=== PATIENT | female | born 1935 | race Caucasian/White ===

== ENCOUNTER 2023-12-27 09:01 | Emergency (ER) | payer MEDICARE, OTHER, SELFPAY ==
[2023-12-27 09:03] VITALS: BP 146/100; PULSE 133; RESP 18; TEMP 36.2; O2SAT 96; BMI 28.0
--- NOTE | 2023-12-27 09:08 | ED.VIS.CHEST ---
HPI History of Present Illness Chief Complaint: Palpitations PFSH PFSH Allergy/AdvReac Type Severity Reaction Status Date / Time Sulfa (Sulfonamide Allergy Mild Rash Verified 12/27/23 09:02 Antibiotics) Social History Smoking Status: Current every day smoker tobacco type: pipe EXAM Physical Exam Const Vital Signs: 12/27/23 09:02 12/27/23 09:03 12/27/23 09:09 Temperature 97.2 F L Temperature Source Temporal Pulse Rate 133 H Respiratory Rate 18 Respiratory Effort Normal Non-Labored Blood Pressure 146/100 H Blood Pressure Mean 115 Pulse Ox 96 Oxygen Delivery Method Room Air Room Air 12/27/23 10:02 12/27/23 10:24 12/27/23 11:00 Temperature Temperature Source Pulse Rate 133 H 87 56 L Respiratory Rate 13 17 14 Respiratory Effort Blood Pressure 138/111 H 137/104 H 116/79 Blood Pressure Mean 120 115 91 Pulse Ox 96 98 95 Oxygen Delivery Method Room Air Room Air Room Air 12/27/23 11:49 Temperature 97.8 F Temperature Source Pulse Rate 54 L Respiratory Rate 16 Respiratory Effort Blood Pressure 122/7 H Blood Pressure Mean 45 Pulse Ox 97 Oxygen Delivery Method MDM MDM MDM Narrative Medical decision making narrative: HISTORY OF PRESENT ILLNESS: 88-year-old female presents with fatigue, shortness of breath for the last several days. Seen by her PCP was noted to be in atrial fibrillation. Patient denies history of A-fib. REVIEW OF SYSTEMS: Pertinent positives: Fatigue, shortness of breath Pertinent negatives: Chest pain, bleeding diathesis PHYSICAL EXAM: Nursing triage notes reviewed, Vital signs reviewed Constitutional: please see mdm HENT: MMM Eyes: Pupils equal round and reactive to light, Extraocular muscles intact Neck: No stridor, no JVD, full neck ROM Lungs: Clear to auscultation, No wheezing or rales. No increased work of breathing, no conversational dyspnea, no accessory muscle use, no nasal flaring. No respiratory distress noted Heart: Fast rate, irregularly irregular rhythm, No murmurs, No rubs and No gallops, 2+ distal pulses (radial, femoral, posterior tibial) in all extremities Abdomen: Soft, there is no tenderness, rigidity, rebound or guarding, no obvious peritoneal signs, no palpable pulsatile abdominal masses, no auscultated abdominal bruit : No CVAT Extremities: No edema Neuro: No focal neurological deficits, cranial nerves II through XII intact, 5/5 strength in all extremities. Intact sensation to light touch in all extremities, 2+ reflexes bilateral patella tendons. Normal gait. No ataxia. Skin: No rash or lesions noted MEDICAL DECISION MAKING: Chief Complaint: Palpitations, shortness of breath, fatigue External records reviewed: No recent ED visits or hospitalizations noted in the chart, no recent echocardiograms, stress test noted Factors affecting care:, Anxiety hyperlipidemia, hypertension Social determinants of health: none History obtained from others: none Consults: none MDM Narrative: Patient was initially tachycardic otherwise afebrile and nontoxic-appearing. Exam with irregular regular rhythm however no other stigmata of VTE or heart failure. I considered the following differential diagnosis: Arrhythmia, anemia, electrolyte disturbance, ACS, PE I obtained a broad lab and imaging workup to further elucidate the etiology of the patient's complaints. ALL IMAGES (IF OBTAINED) HAVE BEEN PERSONALLY REVIEWED AND INTERPRETED BY MYSELF. EKG with atrial fibrillation with rapid ventricular response, left axis deviation, left bundle branch block, no obvious ischemic changes, no prior for comparison High-sensitivity troponin is negative, no evidence of myocardial ischemia CBC without leukocytosis, severe anemia, no thrombocytopenia. CMP without evidence of acute kidney injury, significant electrolyte abnormality, anion gap, no evidence hepatobiliary pathology. BNP slightly elevated consistent with volume overload Chest x-ray was read reviewed myself shows no evidence of pneumonia, noted slight pulmonary edema consistent with likely abnormal heart rhythm Repeat EKG after fluids metoprolol showed return to normal sinus rhythm specifically showed The synthesis of the patient's history, physical exam, abdomen suggest new onset A-fib spontaneously converted back to NSR after fluids and 5mg of IV metoprolol. Repeat blood pressure 122/70. No indication for anticoagulation or ongoing metoprolol therapy. Recommended cardiology and PCP follow-up instructions The patient and/or family, caregivers express understanding. The patient and/or family, caregivers agrees with the plan. Shared decision making: I will have a discussion with the patient and or visitors regarding risk/benefits of further testing or admission. They will be made aware of of the risk/benefits inherent in this decision they will be given the opportunity to voice understanding. Total critical care time today provided was at least 0 minutes. This excludes separately billable procedures. Critical care time (if documented) is secondary to the patient having high probability of clinically significant/life threatening deterioration in the patient's condition which required my urgent intervention. Impression: 1. New onset A-fib with RVR 2. Shortness of breath Dispo: Discharge home This note was generated with [employer] dictation software. It may contain incorrect words, spelling, and punctuation that were not noted in review of the chart prior to signing. Lab Data Labs: Laboratory Results - last 24 hr 12/27/23 09:14 WBC 8.4 RBC 5.05 Hgb 15.2 H Hct 46.1 MCV 91.3 MCH 30.1 MCHC 33.0 RDW Std Deviation 45.1 H RDW Coeff of Angie 13.5 Plt Count 242 MPV 9.5 Immature Gran % (Auto) 0.600 Neut % (Auto) 72.7 H Lymph % (Auto) 18.6 L Rhea % (Auto) 5.9 Eos % (Auto) 1.7 Baso % (Auto) 0.5 Absolute Neuts (auto) 6.1 Absolute Lymphs (auto) 1.57 Nucleated RBC % 0 Sodium 142 Potassium 4.2 Chloride 111 H Carbon Dioxide 24.0 Anion Gap 7 BUN 14 Creatinine 0.79 Estim Creat Clear Calc 46.13 Est GFR (MDRD) Af Amer 89 Est GFR (MDRD) Non-Af 74 BUN/Creatinine Ratio 17.8 Glucose 122 H Calcium 9.7 Magnesium 2.2 Troponin I High Sens 23 B-Natriuretic Peptide 406.5 H Radiography Diagnostic Testing: Clinical Impression(s) from Imaging Studies Chest X-Ray 12/27/23 09:15 IMPRESSION: Findings suggestive of a mild degree of CHF. Electronically Signed: Lucas Chavez MD at 10:02 EDT , Discharge Plan Triage Chief Complaint: Palpitations ED Provider: Virgil Hernandez Dx/Rx/DC Orders Instructions: ED AFIB, ED Palpitations Primary Care Provider: Carl Steen Referrals: Yuri Ta MD [Med Staff - Active Staff] - Activity Restrictions/Additional Instructions: Thank you for trusting us with your care today! Please eat a healthy diet with fruits, vegetables, lean meats and try to drink water for hydration. You are treated with metoprolol (Lopressor) this medicine can slow your heart rate if you are in atrial fibrillation Please go online and look for a device called [employer] which can monitor you heart rate at home. You can also use her Apple Watch for heart rate monitoring. If it shows abnormal heart rhythm I present to the emergency department for further evaluation. Please return to the emergency department if your symptoms change or worsen. Specifically develop chest pain, feel your heart racing, develop shortness of breath, leg swelling. Please follow with your primary care physician and/or cardiology for further outpatient evaluation and management. Print Language: Wolof Disposition Disposition: Home, Self Care Discharge Date/Time: 12/27/23 11:57
--- NOTE | 2023-12-27 09:09 | EKG12_ITS ---
Test Reason : AFIB Blood Pressure : / mmHG Vent. Rate : 133 BPM Atrial Rate : 000 BPM P-R Int : 000 ms QRS Dur : 118 ms QT Int : 296 ms P-R-T Axes : 000 -35 135 degrees QTc Int : 440 ms Atrial fibrillation with rapid ventricular response Left axis deviation Left ventricular hypertrophy with QRS widening ( [place] product , [employer]Kumar ) Confirmed by KINGSTON SHETH, MARY ([id number]), video news editor GLYNN LAST ([id number]) on 12/28/2023 2:07:03 PM Referred By: JANET WHITESIDE Confirmed By:MARY ONOFRE MD
--- NOTE | 2023-12-27 09:15 | RAD_ITS ---
STUDY: X-RAY CHEST REASON FOR EXAM: Female, 88 years old. Chest pain TECHNIQUE: Single AP portable view of the chest. COMPARISON: None. FINDINGS: EKG electrodes are seen. Mild degree of increased interstitial markings at the bases suggest mild CHF. There is no demonstrated pleural abnormality. Normal size heart. Normal mediastinum and jamin. Normal visualized pulmonary arteries. There is atherosclerotic tortuosity of the aortic arch and descending thoracic aorta. Normal visualized thoracic spine. Normal visualized ribs, clavicles, and shoulders. There is no demonstrated abnormality of the visualized soft tissue structures of the upper abdomen. RAD/Chest 1 View (Portable) IMPRESSION: Findings suggestive of a mild degree of CHF. Electronically Signed: Lucas Chavez MD at 10:02 EDT ,
[2023-12-27] MEDS: 0.9% Normal Saline (500mL Bag) 500 ML 999 ML IV (09:20)
[2023-12-27 09:25] LABS: Absolute Lymphocyte Count 1.57 X10^3/uL (0.83-4.51); Absolute Neutrophil Count 6.1 X10^3/uL (2.0-7.7); Basophil# 0.04 X10^3/uL; Basophil% 0.5 % (0-1); Eosinophil# 0.14 X10^3/uL; Eosinophils% 1.7 % (0-5); Hematocrit 46.1 % (37-47); Hemoglobin 15.2 g/dL (12.0-15.0); Lymphocyte # 1.57 X10^3/ul (0.83-4.51); Lymphocyte % 18.6 % (19-41); Mean Corpuscular Hgb 30.1 pg (27.0-32.0); Mean Corpuscular Volume 91.3 fL (81-99); Mean Platelet Vol. 9.5 fl (6.2-12.0); Monocyte% 5.9 % (0-10); NRBC Flagged by Analyzer 0 % (0-5); Neutrophil # 6.12 X10^3/uL (2.7-7.7); Neutrophil % 72.7 % (47-70); Platelet Count 242 K/mm3 (150-450); RBC Distribution Width CV 13.5 % (11.6-14.6); RBC Distribution Width SD 45.1 fl (35.1-43.9); Red Blood Count 5.05 M/mm3 (4.2-5.4); White Blood Count 8.4 K/mm3 (4.4-11.0)
[2023-12-27 09:39] LABS: Anion Gap 7 (5-15); BUN 14 mg/dL (7-18); BUN/Creat Ratio 17.8 RATIO (10-20); Calcium,Total 9.7 mg/dL (8.5-10.1); Chloride 111 mmol/L (98-107); Creatinine, Serum 0.79 mg/dL (0.55-1.02); EST Glomerular Filtration Rate 74 mL/min (>60); Est Glom Filt Rate - Afr Amer 89 mL/min (>60); Estimated Creatinine Clearance 46.13 ml/min; Glucose 122 mg/dL (74-106); Magnesium 2.2 mg/dL (1.6-2.6); Potassium 4.2 mmol/L (3.5-5.1); Sodium Level 142 mmol/L (136-145); Troponin-I HS (w/2H Reflex) 23 pg/mL (3.0-54.0)
[2023-12-27 09:45] LABS: BNP,B-Type NATRIURETIC PEPTIDE 406.5 pg/mL (0-100)
[2023-12-27 10:02] VITALS: BP 138/111; PULSE 133; RESP 13; O2SAT 96
[2023-12-27] MEDS: Metoprolol Tartrate 5 MG/5 ML Vial IV ×3 (10:11→10:21)
[2023-12-27 10:24] VITALS: BP 137/104; PULSE 87; RESP 17; O2SAT 98
--- NOTE | 2023-12-27 10:44 | EKG12_ITS ---
Test Reason : REPEAT Blood Pressure : / mmHG Vent. Rate : 063 BPM Atrial Rate : 063 BPM P-R Int : 152 ms QRS Dur : 122 ms QT Int : 468 ms P-R-T Axes : 031 -18 153 degrees QTc Int : 478 ms Normal sinus rhythm Left bundle branch block Abnormal ECG Confirmed by KINGSTON SHETH, MARY ([id number]), digital editor GLYNN LAST ([id number]) on 12/28/2023 2:08:41 PM Referred By: Confirmed By:MARY ONOFRE MD
[2023-12-27 11:00] VITALS: BP 116/79; PULSE 56; RESP 14; O2SAT 95
[2023-12-27 11:19] LABS: Reflex Troponin-HS? (from REC) Y
[2023-12-27 11:49] VITALS: BP 122/7; PULSE 54; RESP 16; TEMP 36.6; O2SAT 97
== END 2023-12-27 11:57 | disposition home or self-care (01) ==
PROVIDERS: Emergency Provider Emergency Medicine; PCP Family Medicine; Visit Provider Emergency Medicine
DX: I48.91 Unspecified atrial fibrillation (principal); I10 Essential (primary) hypertension; R53.83 Other fatigue; F17.200 Nicotine dependence, unspecified, uncomplicated; R06.02 Shortness of breath; F41.9 Anxiety disorder, unspecified; E78.5 Hyperlipidemia, unspecified; I44.7 Left bundle-branch block, unspecified; R00.2 Palpitations
CPT/HCPCS: 96361; 96374; 99284; 71045; 80048; 83735; 83880; 84484; 85025; 93005; J7030; A4216

== ENCOUNTER 2023-12-28 05:41 | Inpatient (IN) | payer MEDICARE, OTHER, SELFPAY ==
[2023-12-28] VITALS (21 sets, daily range): BP systolic 94–202; BP diastolic 62–124; PULSE 61–133; RESP 16–20; TEMP 36.6–36.7; O2SAT 92–99; BMI 29.3; BMI 28.0
--- NOTE | 2023-12-28 06:10 | RAD_ITS ---
EXAM: XR CHEST, 1 VIEW CLINICAL INDICATION: SOB TECHNIQUE: Frontal view of the chest. COMPARISON: Previous chest radiograph of 12/27/2023. FINDINGS: LUNGS AND PLEURAL SPACES: There is increasing thickening of the pulmonary interstitial markings within the mid to lower lungs indicating worsening interstitial edema. Minimal patchy airspace disease has also developed symmetrically within the lower lungs due to developing alveolar edema. No pneumothorax or pleural effusion. HEART: Heart size is upper normal with mild pulmonary vascular congestion. MEDIASTINUM: Stable mild elongation and calcification of the thoracic aorta. BONES/JOINTS: No acute osseous abnormality. SOFT TISSUES: Unremarkable. RAD/Chest 1 View (Portable) IMPRESSION: Worsening findings of cardiac decompensation/CHF, with increasing interstitial pulmonary edema and interval development of patchy bibasilar alveolar edema since the study of one day ago. Electronically Signed: Abhinav Pizano MD at 7:00 EDT ,
--- NOTE | 2023-12-28 06:10 | EKG12_ITS ---
Test Reason : Blood Pressure : / mmHG Vent. Rate : 072 BPM Atrial Rate : 072 BPM P-R Int : 158 ms QRS Dur : 130 ms QT Int : 428 ms P-R-T Axes : 055 -09 141 degrees QTc Int : 468 ms Normal sinus rhythm Left bundle branch block Abnormal ECG Confirmed by KINGSTON SHETH, MARY ([id number]), editor house organ SOURAV CARPENTER ([id number]) on 12/29/2023 2:15:35 PM Referred By: Confirmed By:MARY ONOFRE MD
--- NOTE | 2023-12-28 06:11 | ED.VIS.DYS ---
HPI History of Present Illness Chief Complaint: Shortness of Breath Informant: patient and spouse/S.O. Narrative Narrative: 88-year-old female presents with worsening dyspnea including dyspnea on exertion and orthopnea. Denies any chest discomfort or peripheral edema. She was seen here yesterday and diagnosed with A-fib, that was new for her but she converted prior to being discharged. No medication changes. She states she has had a dry cough for 2 or 3 days no fevers or chills. No other heart or lung problems that she knows of in the past. [facility] Medical History Smoker Sleep apnea HTN (hypertension) Afib Home Medications ?Medication ?Instructions ?Recorded ?Last Taken ?Type amlodipine 5 mg tablet 5 mg PO DAILY 12/28/23 Unknown History losartan 100 mg tablet 100 mg PO DAILY 12/28/23 Unknown History simvastatin 20 mg tablet 20 mg PO QHS 12/28/23 Unknown History venlafaxine 75 mg capsule,extended 75 mg PO DAILY 12/28/23 Unknown History release 24 hr Allergy/AdvReac Type Severity Reaction Status Date / Time Sulfa (Sulfonamide Allergy Mild Rash Verified 12/28/23 05:56 Antibiotics) Social History Smoking Status: Current every day smoker tobacco type: pipe ROS ROS ED Constitutional Constitutional ED: Denies chills or fever(s) Eyes Eyes: Denies change in vision or diplopia ENT ENT ED: Denies rhinorrhea or sore throat Cardiovascular Cardiovascular: Reports orthopnea; Denies chest pain or palpitations Respiratory/Chest Respiratory/Chest: Reports cough, dyspnea, dyspnea on exertion and orthopnea; Denies sputum Gastrointestinal Gastrointestinal: Denies abdominal pain, diarrhea, nausea or vomiting Genitourinary Genitourinary ED: Denies dysuria or hematuria Musculoskeletal Musculoskeletal: Denies back pain or neck pain Integumentary Denies abscess or rash Neurologic Neurologic: Denies headache(s), paresthesias or weakness Psychiatric Psychiatric: Denies anxiety or suicidal thoughts EXAM Physical Exam Const Vital Signs: 12/28/23 05:43 12/28/23 05:54 12/28/23 06:13 Temperature 97.8 F Temperature Source Oral Pulse Rate 74 Respiratory Rate 20 H Respiratory Effort Normal Short of Breath Respiratory Depth Normal Respiratory Pattern Tachypnea Blood Pressure 147/79 H Blood Pressure Mean 101 Pulse Ox 92 Oxygen Delivery Method Room Air Room Air Room Air 12/28/23 06:30 12/28/23 07:09 Temperature Temperature Source Pulse Rate 67 61 Respiratory Rate 18 Respiratory Effort Respiratory Depth Respiratory Pattern Blood Pressure 140/78 H 130/68 H Blood Pressure Mean 88 Pulse Ox 97 Oxygen Delivery Method Room Air Positive well nourished and well developed General Appearance ED: well developed and NAD HEENT Reports moist mucous membranes normocephalic and atraumatic Eyes PERRL and EOMs intact bilaterally Neck full ROM, supple and no JVD Resp normal respiratory effort Auscultation: rhonchi lower bilaterally Cardio regular rate, regular rhythm and no murmurs GI non-tender and non-distended Auscultation: normoactive bowel sounds Palpation: soft Back/Spine no CVA tenderness General Back: other FROM Extremity normal to inspection General Extremety ED: Negative for edema, pulses abnormal or tenderness General Extremity: Negative for edema or pulses abnormal Neuro oriented x3, CN's II-XII intact bilaterally and no sensory deficits noted Sensorium / Orientation: awake and alert Motor Exam: strength 5/5 throughout Psych mental status grossly normal Skin no rashes or lesions noted and no wounds MDM MDM MDM Narrative Medical decision making narrative: Upon triage arrest patient 87% on room air and placed on oxygen by nursing. My suspicion is that she is in CHF. She is in a sinus rhythm and not in A-fib at this time. Her clinical exam supports CHF, and reviewing the ED visit from yesterday, her ancillary studies support acute CHF at that time. Therefore while repeating those test to see if her BNP and chest x-ray are looking worse, I am giving her IV Lasix and sublingual nitroglycerin in addition to the oxygen. This did help some. Indeed, on my interpretation one-view portable chest x-ray does appear to show worsening cephalization/edema, radiology confirms this. Her BNP is similar, a little lower. The rest of her labs are noted and unremarkable including a normal troponin. Plan is for admission. Lab Data Attestation: I reviewed the patient's lab results. Labs: Laboratory Results - last 24 hr 12/28/23 05:49 WBC 8.0 RBC 4.90 Hgb 15.0 Hct 44.6 MCV 91.0 MCH 30.6 MCHC 33.6 RDW Std Deviation 44.5 H RDW Coeff of Angie 13.3 Plt Count 227 MPV 9.9 Immature Gran % (Auto) 0.500 Neut % (Auto) 72.8 H Lymph % (Auto) 19.5 Major % (Auto) 4.3 Eos % (Auto) 2.4 Baso % (Auto) 0.5 Absolute Neuts (auto) 5.8 Absolute Lymphs (auto) 1.55 Nucleated RBC % 0 Sodium 140 Potassium 3.7 Chloride 112 H Carbon Dioxide 21.0 Anion Gap 7 BUN 19 H Creatinine 0.80 Estim Creat Clear Calc 47.17 Est GFR (MDRD) Af Amer 87 Est GFR (MDRD) Non-Af 72 BUN/Creatinine Ratio 23.7 H Glucose 146 H Calcium 8.8 Troponin I High Sens 22 B-Natriuretic Peptide 338.3 H Radiography Diagnostic Testing: Clinical Impression(s) from Imaging Studies Chest X-Ray 12/28/23 06:10 IMPRESSION: Worsening findings of cardiac decompensation/CHF, with increasing interstitial pulmonary edema and interval development of patchy bibasilar alveolar edema since the study of one day ago. Electronically Signed: Abhinav Pizano MD at 7:00 EDT , Rhythm Strip Rhythm Strip: Sinus Rhythm Rate: 75 Ectopy: None EKG Initial EKG: Attestation: I personally reviewed and interpreted this EKG as follows: Interpretation: Sinus Rhythm, No Acute Injury Pattern and LBBB Prior EKG tracings: not available for review Management Discussion w/another healthcare provider: Hospitalist Discharge Plan Triage Chief Complaint: Shortness of Breath ED Provider: Herman Faulkner Dx/Rx/DC Orders Clinical Impression: Hypoxemia, Acute CHF Prescriptions: No Action venlafaxine 75 mg capsule,extended release 24hr 75 mg PO DAILY amlodipine 5 mg tablet 5 mg PO DAILY simvastatin 20 mg tablet 20 mg PO QHS losartan 100 mg tablet 100 mg PO DAILY Primary Care Provider: Carl Steen Referrals: Carl Steen MD [Primary Care Provider] - Print Language: Indonesian Disposition Disposition: [facility]
[2023-12-28 06:23] LABS: Absolute Lymphocyte Count 1.55 X10^3/uL (0.83-4.51); Absolute Neutrophil Count 5.8 X10^3/uL (2.0-7.7); Basophil# 0.04 X10^3/uL; Basophil% 0.5 % (0-1); Eosinophil# 0.19 X10^3/uL; Eosinophils% 2.4 % (0-5); Hematocrit 44.6 % (37-47); Lymphocyte # 1.55 X10^3/ul (0.83-4.51); Lymphocyte % 19.5 % (19-41); Mean Corp Hgb Conc 33.6 g/dL (32-36); Mean Corpuscular Hgb 30.6 pg (27.0-32.0); Mean Platelet Vol. 9.9 fl (6.2-12.0); Monocyte# 0.34 X10^3/uL; Monocyte% 4.3 % (0-10); NRBC Flagged by Analyzer 0 % (0-5); Neutrophil # 5.79 X10^3/uL (2.7-7.7); Neutrophil % 72.8 % (47-70); Platelet Count 227 K/mm3 (150-450); RBC Distribution Width CV 13.3 % (11.6-14.6); RBC Distribution Width SD 44.5 fl (35.1-43.9)
[2023-12-28] MEDS: Furosemide 20 MG/2 ML VIAL IV (06:30)
[2023-12-28] MEDS: Nitroglycerin SL (ED/IMG/CATH) 0.4 MG TABLET SL (06:30)
[2023-12-28 06:39] LABS: Anion Gap 7 (5-15); BUN 19 mg/dL (7-18); BUN/Creat Ratio 23.7 RATIO (10-20); Calcium,Total 8.8 mg/dL (8.5-10.1); Chloride 112 mmol/L (98-107); EST Glomerular Filtration Rate 72 mL/min (>60); Est Glom Filt Rate - Afr Amer 87 mL/min (>60); Estimated Creatinine Clearance 47.17 ml/min; Glucose 146 mg/dL (74-106); Potassium 3.7 mmol/L (3.5-5.1); Sodium Level 140 mmol/L (136-145); Troponin-I HS 22 pg/mL (3.0-54.0)
[2023-12-28 07:23] LABS: BNP,B-Type NATRIURETIC PEPTIDE 338.3 pg/mL (0-100)
--- NOTE | 2023-12-28 07:52 | HP.PCM.HOS_ITS ---
HPI - General General Date of Admission: 12/28/23 Date of Service: 12/28/23 Chief Complaint: Shortness of breath HPI Narrative NATALEE ARAIZA, is a 88 F who presents with shortness of breath. Patient states started 2 weeks prior to her admission. She had noticed increasing shortness of breath with minimal activity. She had also gotten some notification from her Apple Watch telling her she was in A-fib. She was seen by her primary care physician a day prior to her admission. Found to be in A-fib and sent to the ED . Patient was diagnosed with new onset A-fib discharged home. She woke up on the morning of her presentation with significant shortness of breath necessitating patient presented back to the ED. Imaging studies obtained came back consistent with interstitial pulmonary edema and assessment of acute congestive heart failure made admitted to a monitored bed for subsequent management [facility] Medical History Smoker Sleep apnea HTN (hypertension) Afib Home Medications ?Medication ?Instructions ?Recorded ?Last Taken ?Type amlodipine 5 mg tablet 5 mg PO DAILY 12/28/23 Unknown History losartan 100 mg tablet 100 mg PO DAILY 12/28/23 Unknown History simvastatin 20 mg tablet 20 mg PO QHS 12/28/23 Unknown History venlafaxine 75 mg capsule,extended 75 mg PO DAILY 12/28/23 Unknown History release 24 hr Allergy/AdvReac Type Severity Reaction Status Date / Time Sulfa (Sulfonamide Allergy Mild Rash Verified 12/28/23 05:56 Antibiotics) Social History Smoking Status: Current every day smoker tobacco type: pipe ROS ROS Narrative GENERAL: denies fever, chills, night sweats, weight loss, anorexia HEENT: denies headache, sinus congestion, or drainage, dysphagia RESPIRATORY: shortness of breath, dyspnea on exertion CARDIAC: palpitations, orthopnea, GASTROINTESTINAL: denies abdominal pain, nausea, vomiting, melena, GENITOURINARY: denies dysuria, urgency, frequency, heamaturia EXTREMITY: denies swelling MUSCULOSKELETAL: denies current joint pain or tenderness NEUROLOGIC: denies focal numbness, weakness, tingling HEMATOLOGIC: denies easy bruising and/or hemorrhage INTEGUMENT: denies rashes PSYCHIATRIC: denies suicidal or homicidal ideation Vital Signs Vital Signs Vital Signs: 12/28/23 05:43 12/28/23 05:54 12/28/23 06:13 Temperature 97.8 F Temperature Source Oral Pulse Rate 74 Respiratory Rate 20 H Respiratory Effort Normal Short of Breath Respiratory Depth Normal Respiratory Pattern Tachypnea Blood Pressure 147/79 H Blood Pressure Mean 101 Pulse Ox 92 Oxygen Delivery Method Room Air Room Air Room Air 12/28/23 06:30 12/28/23 07:09 Temperature Temperature Source Pulse Rate 67 61 Respiratory Rate 18 Respiratory Effort Respiratory Depth Respiratory Pattern Blood Pressure 140/78 H 130/68 H Blood Pressure Mean 88 Pulse Ox 97 Oxygen Delivery Method Room Air Weight Weight: 72.847 kg Body Mass Index (BMI) 29.3 Physical Exam Narrative GENERAL: cooperative HEENT: Atraumatic; normocephalic EYES; Anicteric, Normal Conjunctiva NECK; supple, normal thyroid, RESPIRATORY: Diminished to auscultation CARDIOVASCULAR: Regular S1 S2, GI: soft, normoactive bowel sounds, : No Renal angle tenderness; EXTREMITIES: No edema, no clubbing, MUSCULOSKELETAL: no muscle wasting NEURO: Awake; no lateralizing signs. SKIN: No Rash PSYCH; Flat affect Results Lab / Micro Data 12/28/23 05:49 12/28/23 05:49 Labs: Laboratory Results - last 24 hr 12/28/23 05:49: WBC 8.0, RBC 4.90, Hgb 15.0, Hct 44.6, MCV 91.0, MCH 30.6, MCHC 33.6, RDW Std Deviation 44.5 H, RDW Coeff of Angie 13.3, Plt Count 227, MPV 9.9, Immature Gran % (Auto) 0.500, Neut % (Auto) 72.8 H, Lymph % (Auto) 19.5, [place] % (Auto) 4.3, Eos % (Auto) 2.4, Baso % (Auto) 0.5, Absolute Neuts (auto) 5.8, Absolute Lymphs (auto) 1.55, Nucleated RBC % 0, Sodium 140, Potassium 3.7, C hloride 112 H, Carbon Dioxide 21.0, Anion Gap 7, BUN 19 H, Creatinine 0.80, Estim Creat Clear Calc 47.17, Est GFR (MDRD) Af Amer 87, Est GFR (MDRD) Non-Af 72, BUN/Creatinine Ratio 23.7 H, Glucose 146 H, Calcium 8.8, Troponin I High Sens 22, B-Natriuretic Peptide 338.3 H Rhythm Strip Rhythm Strip: Sinus Rhythm Rate: 75 Ectopy: None Imaging Radiology Impression Chest X-Ray 12/28/23 06:10 IMPRESSION: Worsening findings of cardiac decompensation/CHF, with increasing interstitial pulmonary edema and interval development of patchy bibasilar alveolar edema since the study of one day ago. Electronically Signed: Abhinav Pizano MD at 7:00 EDT , Assessment & Plan Assessment/Plan (1) Acute CHF: (2) Hypoxemia: PLAN: Plan Patient is an 88-year-old lady presenting with progressive shortness of breath 1. Acute congestive heart failure (new onset) ? EF unknown at this point. Patient has been admitted to monitored bed managed with strict input and output, daily weight, low-sodium diet, fluid restriction as well as treatment with furosemide. Echo ordered for EF assessment 2. New onset A-fib ? Currently in sinus rhythm with patient Isauro vas 2 score being 2 patient will need to be on long-term systemic anticoagulation discussed with patient 3. Hypertension - Blood pressure controlled, home medications continued with dose adjustment as needed 4. Left bundle branch block ? Age undetermined ordered an echo if patient has any evidence of regional wall motion abnormalities cardiology be consulted 5. Depression ? Patient is on SNRI did continue 6. Dyslipidemia -Patient is on statin therapy, continued at home dose 7. Tobacco dependence - Counseled on cessation, offered nicotine patch for tobacco cravings 8. DVT prophylaxis ? Placed on apixaban Time spent in the patient's overall evaluation,decision-making process, review of diagnostic data, adjustment of management, discussion with other providers, nursing nursing and ancillary staff involved in patient's care documentation, 78. Minutes Advance planning; did discuss with the patient and family regarding advanced directives as well as CODE STATUS. Did explain the various scenarios involved ( FULL CODE, DNR CCA, DNR CCA with no intubation, and DNR CC and what each meant) patient elected to to remain full code with CPR and intubation if needed. Order was placed. Time spent on discussion 16 minutes. Charges/Coding Visit Charges Inpatient E&M: 26636 Init Hosp L3 Procedures Hospitalists Procedures: 39871 Advncd Care Plan 30 Min
--- NOTE | 2023-12-28 08:46 | ECHOD_ITS ---
Reason For Study: CHF Procedure This was a 2D Doppler, Color Flow transthoracic echocardiogram. Exam performed portable in patient room. Left Ventricle Normal LV size. Mild concentric left ventricular hypertrophy. The estimated ejection fraction is 50 %. Stage 3 diastolic dysfunction. There is borderline global hypokinesis of the left ventricle. Right Ventricle Normal RV size. Normal systolic function. Atria Normal left atrium. Normal right atrium. Bubble contrast study negative for right to left interatrial shunt. Mitral Valve Normal mitral valve. Mild-Moderate (1-2+) eccentric mitral valve insufficiency. Tricuspid Valve Normal tricuspid valve. Mild (1+) tricuspid valve insufficiency. Pulmonary artery systolic pressure is 38 mmHg. Aortic Valve Trisinus/trileaflet aortic valve. Pulmonic Valve Normal pulmonic valve. Great Vessels Normal aortic root. The pulmonary artery is normal size. Inferior vena cava collapse with respiration. Pericardium/Pleural No pericardial effusion. Medication Performed a rapid injection of agitated mix of 9 cc saline and 1cc air to assess for atrial septal defect. MMode/2D Measurements & Calculations LVIDd: 4.9 cm IVSd: 1.2 cm LVOT diam: 1.7 cm LVIDs: 3.7 cm LVPWd: 1.2 cm RVDd: 2.8 cm FS: 25.0 % LVOT area: 2.3 cm2 LA dimension: 4.1 cm LAV(MOD-bp): 62.4 ml LVAd ap4: 31.3 cm2 LAV(MOD-bp) Indexed: 35.9 ml/m2 LVLd ap4: 7.9 cm LAV(MOD-sp2): 55.1 ml EDV(MOD-sp4): 101.4 ml LAV(MOD-sp4): 68.6 ml EDV(sp4-el): 105.5 ml LVAs ap4: 19.5 cm2 LVLs ap4: 6.7 cm ESV(MOD-sp4): 47.1 ml ESV(sp4-el): 48.7 ml EF(MOD-sp4): 53.5 % EF(sp4-el): 53.9 % LVAd ap2: 24.1 cm2 SV(MOD-sp4): 54.2 ml SV(MOD-sp2): 32.4 ml LVLd ap2: 7.9 cm EDV(MOD-sp2): 62.8 ml EDV(sp2-el): 62.2 ml LVAs ap2: 14.3 cm2 LVLs ap2: 6.4 cm ESV(MOD-sp2): 30.4 ml ESV(sp2-el): 27.2 ml EF(MOD-sp2): 51.6 % SV(sp4-el): 56.8 ml LA A4 area: 22.0 cm2 RA A4 area: 15.1 cm2 TAPSE: 1.9 cm Time Measurements MV dec time: 0.22 sec Doppler Measurements & Calculations MV E max timothy: 83.3 cm/sec Lat Peak E' Timothy: 7.6 cm/sec Med Peak E' Timothy: 4.7 cm/sec MV A max timothy: 35.1 cm/sec E/E' lat: 10.9 E/E' med: 17.6 MV E/A: 2.4 MV V2 max: 103.3 cm/sec MV P1/2t max timothy: 103.6 cm/sec Ao V2 max: 111.3 cm/sec MV max P.3 mmHg MV P1/2t: 70.5 msec Ao max P.0 mmHg MV V2 mean: 48.6 cm/sec MV dec slope: 430.6 cm/sec2 Ao V2 mean: 73.8 cm/sec MV mean P.2 mmHg Ao mean P.6 mmHg MV V2 VTI: 25.9 cm MVA(P1/2t): 3.1 cm2 Ao V2 VTI: 22.9 cm MVA(VTI): 1.8 cm2 AV (velocity ratio): 0.87 JOE(I,D): 2.0 cm2 JOE(V,D): 2.1 cm2 LV V1 max: 101.8 cm/sec MR max timothy: 535.1 cm/sec SV(LVOT): 46.0 ml LV V1 max P.1 mmHg MR max P.5 mmHg LV V1 mean P.1 mmHg MR mean timothy: 384.6 cm/sec LV V1 mean: 65.8 cm/sec MR mean P.9 mmHg LV V1 VTI: 20.0 cm MR VTI: 190.3 cm PA V2 max: 66.0 cm/sec TR max timothy: 294.3 cm/sec PA max PG (full): 0.67 mmHg TR max P.6 mmHg PA V2 mean: 47.8 cm/sec ECHO/Echo Complete Interpretation Summary Normal LV size. The estimated ejection fraction is 50 %. Mild concentric left ventricular hypertrophy. Bubble contrast study negative for right to left interatrial shunt. Stage 3 diastolic dysfunction. Ordering Physician: Marco Dallas Referring Physician: Carl Steen Performed By: Riya Youssef RDCS, RVT
[2023-12-28 09:32] LABS: Troponin-I HS 25 pg/mL (3.0-54.0)
[2023-12-28] MEDS: amLODIPine 5 MG Tablet PO (10:08)
[2023-12-28] MEDS: Enoxaparin 40 MG/0.4 ML Syringe SC (10:08)
[2023-12-28] MEDS: Losartan Potassium 100 MG Tablet PO (10:08)
[2023-12-28] MEDS: Furosemide 40 MG/4 ML Vial IV ×3 (10:09→20:53)
[2023-12-28 12:13] LABS: Troponin-I HS 24 pg/mL (3.0-54.0)
[2023-12-28] MEDS: Ondansetron 4 MG/2 ML Vial IV (15:30)
[2023-12-28] MEDS: dilTIAZem 25 MG/5 ML Vial 20 MG IV BOLUS (18:02)
[2023-12-28] MEDS: Diltiazem 125 MG in Dextrose 5%-Water (100mL Bag) 100 ML CONT INF (19:04)
[2023-12-28] MEDS: 0.9% Saline Lock 10 ML Syringe IV (20:53)
[2023-12-28] MEDS: APIXABAN 5 MG TABLET PO (20:53)
[2023-12-28] MEDS: Venlafaxine XR 75 MG Capsule PO (20:53)
[2023-12-28] MEDS: Atorvastatin Calcium 10 MG Tablet PO (20:53)
[2023-12-29] VITALS (50 sets, daily range): BP systolic 101–174; BP diastolic 36–104; PULSE 40–143; RESP 12–66; TEMP 36.4–37.1; O2SAT 93–100; BMI 28.0; BMI 27.6
[2023-12-29] MEDS: Furosemide 40 MG/4 ML Vial IV ×4 (05:09→21:01)
[2023-12-29 06:10] LABS: Absolute Lymphocyte Count 1.69 X10^3/uL (0.83-4.51); Absolute Neutrophil Count 5.9 X10^3/uL (2.0-7.7); Basophil# 0.04 X10^3/uL; Basophil% 0.5 % (0-1); Eosinophil# 0.13 X10^3/uL; Eosinophils% 1.6 % (0-5); Hematocrit 46.3 % (37-47); Hemoglobin 15.8 g/dL (12.0-15.0); Lymphocyte # 1.69 X10^3/ul (0.83-4.51); Lymphocyte % 20.4 % (19-41); Mean Corp Hgb Conc 34.1 g/dL (32-36); Mean Corpuscular Hgb 30.3 pg (27.0-32.0); Mean Corpuscular Volume 88.9 fL (81-99); Mean Platelet Vol. 9.9 fl (6.2-12.0); Monocyte# 0.53 X10^3/uL; Monocyte% 6.4 % (0-10); NRBC Flagged by Analyzer 0 % (0-5); Neutrophil # 5.86 X10^3/uL (2.7-7.7); Neutrophil % 70.5 % (47-70); Platelet Count 215 K/mm3 (150-450); RBC Distribution Width CV 13.2 % (11.6-14.6); RBC Distribution Width SD 42.6 fl (35.1-43.9); Red Blood Count 5.21 M/mm3 (4.2-5.4); White Blood Count 8.3 K/mm3 (4.4-11.0)
--- NOTE | 2023-12-29 06:41 | EKG12_ITS ---
Test Reason : Blood Pressure : / mmHG Vent. Rate : 131 BPM Atrial Rate : 000 BPM P-R Int : 000 ms QRS Dur : 128 ms QT Int : 316 ms P-R-T Axes : 000 012 181 degrees QTc Int : 466 ms Atrial fibrillation with rapid ventricular response Non-specific intra-ventricular conduction block Cannot rule out Anterior infarct , age undetermined T wave abnormality, consider inferolateral ischemia Abnormal ECG When compared with ECG of 28-DEC-2023 05:49, MANUAL COMPARISON REQUIRED, DATA IS UNCONFIRMED Confirmed by Chato Cota ([id number]), associate editor SOURAV CARPENTER ([id number]) on 12/30/2023 6:09:24 AM Referred By: Confirmed By:Chato Cota
[2023-12-29 08:53] LABS: Anion Gap 9 (5-15); BUN 22 mg/dL (7-18); BUN/Creat Ratio 25.4 RATIO (10-20); Calcium,Total 9.3 mg/dL (8.5-10.1); Chloride 106 mmol/L (98-107); Creatinine, Serum 0.87 mg/dL (0.55-1.02); EST Glomerular Filtration Rate 66 mL/min (>60); Est Glom Filt Rate - Afr Amer 80 mL/min (>60); Estimated Creatinine Clearance 42.37 ml/min; Glucose 122 mg/dL (74-106); Magnesium 2.4 mg/dL (1.6-2.6); Phosphorus 5.2 mg/dL (2.5-4.9); Potassium 3.1 mmol/L (3.5-5.1); Sodium Level 140 mmol/L (136-145)
[2023-12-29] MEDS: Diltiazem 125 MG in Dextrose 5%-Water (100mL Bag) 100 ML 15 MG CONT INF (09:05)
[2023-12-29] MEDS: APIXABAN 5 MG TABLET PO ×2 (09:18→21:02)
[2023-12-29] MEDS: Losartan Potassium 100 MG Tablet PO (09:18)
[2023-12-29] MEDS: amLODIPine 5 MG Tablet PO (09:18)
--- NOTE | 2023-12-29 09:38 | PCM.PN.HOSP ---
Reason for Visit Reason for Visit: Diagnoses Heart failure, unspecified (12/28/23) Hypoxemia (12/28/23) Subjective Subjective Patient went into A-fib with RVR necessitating initiation of Cardizem drip Objective Data Objective Data Vital Signs: Vital Signs Temp Pulse Resp BP Pulse Ox O2 Del Method O2 Flow Rate 97.6 F L 121 H 16 131/71 H 95 Nasal Cannula 2 12/29/23 07:40 12/29/23 09:15 12/29/23 09:15 12/29/23 09:15 12/29/23 09:15 12/29/23 09:15 12/29/23 09:15 Oxygen Flow Rate (L/min) 2 Oxygen Delivery Method Nasal Cannula Weight: 69.4 kg Body Mass Index (BMI) 28.0 Intake & Output: Intake and Output for Last 24 Hours 12/27/23 12/28/23 12/29/23 23:59 23:59 23:59 Intake Total 40.92 / 40.92 79.16 / 79.16 Output Total 850 / 850 300 / 300 Balance -809.08 / -809.08 -220.84 / -220.84 Lab / Micro Data 12/29/23 05:24 12/29/23 05:24 Labs: Laboratory Results - last 24 hr 12/28/23 11:30: Troponin I High Sens 24 12/29/23 05:24: WBC 8.3, RBC 5.21, Hgb 15.8 H, Hct 46.3, MCV 88.9, MCH 30.3, MCHC 34.1, RDW Std Deviation 42.6, RDW Coeff of Angie 13.2, Plt Count 215, MPV 9.9, Immature Gran % (Auto) 0.600, Neut % (Auto) 70.5 H, Lymph % (Auto) 20.4, [place] % (Auto) 6.4, Eos % (Auto) 1.6, Baso % (Auto) 0.5, Absolute Neuts (auto) 5.9, Absolute Lymphs (auto) 1.69, Nucleated RBC % 0, Sodium 140, Potassium 3.1 L, Chloride 106, Carbon Dioxide 25.0, Anion Gap 9, BUN 22 H, Creatinine 0.87, Estim Creat Clear Calc 42.37, Est GFR (MDRD) Af Amer 80, Est GFR (MDRD) Non-Af 66, BUN/Creatinine Ratio 25.4 H, Glucose 122 H, Calcium 9.3, Phosphorus 5.2 H, Magnesium 2.4 Radiography Diagnostic Testing: Radiology Impression Echocardiogram 12/28/23 08:46 Interpretation Summary Normal LV size. The estimated ejection fraction is 50 %. Mild concentric left ventricular hypertrophy. Bubble contrast study negative for right to left interatrial shunt. Stage 3 diastolic dysfunction. Ordering Physician: Marco Dallas Referring Physician: Carl Steen Performed By: Riya Youssef RDCS, RVT Rhythm Strip Rhythm Strip: Sinus Rhythm Rate: 75 Ectopy: None Physical Exam Narrative GENERAL: cooperative HEENT: Atraumatic; normocephalic EYES; Anicteric, Normal Conjunctiva NECK; supple, normal thyroid, RESPIRATORY: Diminished to auscultation CARDIOVASCULAR: Regular S1 S2, GI: soft, normoactive bowel sounds, : No Renal angle tenderness; EXTREMITIES: No edema, no clubbing, MUSCULOSKELETAL: no muscle wasting NEURO: Awake; no lateralizing signs. SKIN: No Rash PSYCH; Flat affect Assessment & Plan Assessment/Plan (1) Acute CHF: (2) Hypoxemia: PLAN: Plan Patient is an 88-year-old lady presenting with progressive shortness of breath 1. Acute congestive heart failure (new onset) ? EF unknown at this point. Patient has been admitted to monitored bed managed with strict input and output, daily weight, low-sodium diet, fluid restriction as well as treatment with furosemide. Echo ordered for EF assessment ? 12/29/2023 patient responded to diuretic therapy currently negative fluid balance 2. New onset A-fib ? Currently in sinus rhythm with patient Isauro vas 2 score being 2 patient will need to be on long-term systemic anticoagulation discussed with patient ? 12/29/2023 patient went into A-fib with RVR and is stating initiation of Cardizem drip. Consult placed to cardiology Dr. Keyon 3. Hypertension - Blood pressure controlled, home medications continued with dose adjustment as needed 4. Left bundle branch block ? Age undetermined ordered an echo if patient has any evidence of regional wall motion abnormalities cardiology be consulted 5. Depression ? Patient is on SNRI did continue 6. Dyslipidemia -Patient is on statin therapy, continued at home dose 7. Tobacco dependence - Counseled on cessation, offered nicotine patch for tobacco cravings 8. Hypokalemia -Corrected per protocol 9. DVT prophylaxis ? Placed on apixaban Time spent in the patient's overall evaluation,decision-making process, review of diagnostic data, adjustment of management, discussion with other providers, nursing nursing and ancillary staff involved in patient's care documentation, 52. Minutes Charges/Coding Visit Charges Inpatient E&M: 81889 [facility] Hosp L3
--- NOTE | 2023-12-29 10:14 | CASEMGMT ---
JESUS VALLE Assessment Face to Face with patient for initial transition planning/care coordination assessment. RN CM introduced self and role at [facility], pt voices understanding. Pt is A&Ox4 and is resting comfortably in bed and is calm. Care providers, pharmacy, and demographics verified. Admitting dx: CHF LACE Strata: 2 PCP: Carl Steen Specialists: Denies current but is being followed by Dr. Ta here. Preferred Pharmacy: [facility] Insurance: [facility] A/B, [employer] Prescription Benefit: Yes LNOK: Daniele Abarca (H), Oliver Abarca (Son) - pt is wanting to fill out POA paperwork regarding the son, SW aware Living Arrangements: Pt lives with her in a 2 floor condo with a flat entrance. Pt states that her and her are moving to [place] ([place]) next month ADLs/IADLs: Ind Transportation: Self, DME: [employer], [facility] but does not use. BP Cuff HHC/SNF: Denies history or needs Pt?s goal: Home Plan: 6-Click is 24. Pt denies the need for HH or OP Tx. Pt states that she feels safe discharging home with her once medically ready. Will follow for new anticoagulant. CM to follow for safe DC from [facility]. Elaina Allen RN, CM
--- NOTE | 2023-12-29 10:53 | EKG12_ITS ---
Test Reason : RYTHUM CHG Blood Pressure : / mmHG Vent. Rate : 067 BPM Atrial Rate : 067 BPM P-R Int : 164 ms QRS Dur : 130 ms QT Int : 466 ms P-R-T Axes : 000 -16 148 degrees QTc Int : 492 ms Sinus rhythm with Premature atrial complexes Possible Left atrial enlargement Left bundle branch block Abnormal ECG When compared with ECG of 28-DEC-2023 17:23, MANUAL COMPARISON REQUIRED, DATA IS UNCONFIRMED Confirmed by Chato Cota ([id number]), graphic editor SOURAV CARPENTER ([id number]) on 12/30/2023 6:07:35 AM Referred By: MARTHA Confirmed By:Chato Cota
[2023-12-29] MEDS: Potassium Chloride Oral Tablet 20 MEQ 40 MEQ PO (10:57)
--- NOTE | 2023-12-29 13:49 | CASEMGMT ---
SW was informed patient would like to complete Healthcare Power of Director Medicaid papers. SW met with patient. Introduced self and role at [facility]. Patient explained her one son is her financial power of compliance attorney (poa) and the other one is her medical power of compliance attorney. Patient said her son that is the financial POA would like to be able to see her medical information on the portal. SW pulled the [facility] rac card out of patient's folder and showed her the instructions on setting this up. SW wrote down patient's medical record number on the rac card. Patient thanked ANGELITO and said it is not necessary to do new medical POA papers. Letty Block CERTIFIED MEDICAL TRANSCRIPTIONIST [place]
[2023-12-29] MEDS: 0.9% Saline Lock 10 ML Syringe IV ×2 (14:18→21:02)
[2023-12-29] MEDS: Metoprolol Tartrate 25 MG Tablet PO ×2 (16:46→21:02)
[2023-12-29] MEDS: Potassium Chloride Oral Tablet 20 MEQ PO (16:46)
--- NOTE | 2023-12-29 17:39 | CON.PCM.CA_ITS ---
Assessment & Plan Assessment/Plan (1) Paroxysmal atrial fibrillation: PLAN: She does have paroxysmal atrial fibrillation. She has converted back to sinus rhythm at this time. I would like to obtain a natruretic peptide level to exclude congestive heart failure. She does have a chads Vasc of 3 and ideally needs to be on anticoagulation. * I will discuss with her whether she will be willing to be in the react A-fib trial * Discontinue IV diltiazem * Recommend beta-harry with metoprolol 25 mg twice a day * Depending on her response over the next 12 to 24 hours further recommendations will be made (2) HTN (hypertension), benign: PLAN: She does have a history of hypertension and will continue on the amlodipine, losartan, and the beta-harry at this time. Thank you for allowing me to participate in the care of your patient. Please don't hesitate to call if any issues arise. HPI Consult Data Date of Consult: 12/29/23 HPI Narrative HPI Narrative: NATALEE ARAIZA, is a 88 F who presents with an episode of palpitations detected by her Apple Watch. She had presented with shortness of breath which started 2 weeks prior to admission. She noticed that with minimal activity she did get some shortness of breath. She had also noticed on her Apple Watch that she was going into atrial fibrillation and she told her primary physician who sent her to the emergency room and EKG did confirm that she was in atrial fibrillation. Imaging studies were performed of her chest consisting of a chest x-ray and it demonstrated interstitial pulmonary edema and she was admitted to the telemetry unit. She was placed on intravenous Cardizem drip and has since converted back to sinus rhythm and is doing quite well. An echocardiogram performed demonstrated mildly reduced global left ventricular systolic dysfunction estimated EF of 50% with 1-2+ mitral regurgitation present. [facility] Medical History Smoker Sleep apnea HTN (hypertension) Afib Home Medications ?Medication ?Instructions ?Recorded ?Last Taken ?Type amlodipine 5 mg tablet 5 mg PO DAILY 12/28/23 Unknown History losartan 100 mg tablet 100 mg PO DAILY 12/28/23 Unknown History simvastatin 20 mg tablet 20 mg PO QHS 12/28/23 Unknown History venlafaxine 75 mg capsule,extended 75 mg PO DAILY 12/28/23 Unknown History release 24 hr Allergy/AdvReac Type Severity Reaction Status Date / Time Sulfa (Sulfonamide Allergy Mild Rash Verified 12/28/23 05:56 Antibiotics) Social History Smoking Status: Current every day smoker tobacco type: pipe ROS Constitutional Constitutional: Denies fever(s) or weight loss Eyes Eyes: Reports systems reviewed and no addt'l complaints, except as documented ENT HEENT: Reports systems reviewed and no addt'l complaints, except as documented Cardiovascular Cardiovascular: Reports palpitations; Denies chest pain at rest, chest pain with activity, dyspnea at rest, dyspnea on exertion, edema or paroxysmal nocturnal dyspnea Respiratory/Chest Respiratory/Chest: Reports shortness of breath at rest; Denies dyspnea on exertion, productive cough or shortness of breath with exertion Gastrointestinal Gastrointestinal: Denies change in bowel habits, nausea, vomiting or weight changes Genitourinary Genitourinary: Denies difficulty urinating Musculoskeletal Musculoskeletal: Denies joint stiffness or muscle weakness Integumentary Integumentary: Denies lesions Neurologic Neurologic: Denies dizziness or syncope Psychiatric Psychiatric: Denies anxiety Endocrine Endocrinology: Denies excessive sweating or fatigue Hematologic/Lymphatic Hematologic/Lymphatic: Denies anemia Allergic/Immunologic Allergic/Immunologic: Denies seasonal rhinorrhea Physical Exam Const alert, oriented x3 and no apparent distress General Appearance: cooperative HEENT hearing grossly normal bilaterally Head and Scalp: atraumatic Eyes EOMs intact bilaterally Neck General: normal visual inspection Chest inspection of chest normal and palpation of chest normal Resp normal respiratory effort Auscultation: clear to auscultation bilaterally Cardio regular rate, regular rhythm, S1 normal heart sound and S2 normal heart sound Jugular Venous Distention: JVD GI normal to inspection, nondistended, normoactive bowel sounds Extremity normal capillary refill and no pedal edema Peripheral Pulses: Yes pulses 2+ throughout and femoral pulses present Skin no rashes or lesions noted Neuro oriented x3 and CN's II-XII intact bilaterally Psych Appearance: grossly normal and appropriate Risk Stratification Risk Stratification Applicable: No Objective Data Vital Signs: Vital Signs Temp Pulse Resp BP Pulse Ox O2 Del Method O2 Flow Rate 97.6 F L 79 16 125/63 H 98 Nasal Cannula 2 12/29/23 07:40 12/29/23 16:46 12/29/23 13:00 12/29/23 16:46 12/29/23 13:00 12/29/23 15:52 12/29/23 15:52 Oxygen Flow Rate (L/min) 2 Oxygen Delivery Method Nasal Cannula Weight: 153 lb 0.013 oz Body Mass Index (BMI) 28.0 Intake & Output: Intake and Output for Last 24 Hours 12/27/23 12/28/23 12/29/23 23:59 23:59 23:59 Intake Total 40.92 / 40.92 468.49 / 468.49 Output Total 850 / 850 950 / 950 Balance -809.08 / -809.08 -481.51 / -481.51 Lab / Micro Data 12/29/23 05:24 12/29/23 05:24 Labs: Laboratory Results - last 24 hr 12/29/23 05:24: WBC 8.3, RBC 5.21, Hgb 15.8 H, Hct 46.3, MCV 88.9, MCH 30.3, MCHC 34.1, RDW Std Deviation 42.6, RDW Coeff of Angie 13.2, Plt Count 215, MPV 9.9, Immature Gran % (Auto) 0.600, Neut % (Auto) 70.5 H, Lymph % (Auto) 20.4, [place] % (Auto) 6.4, Eos % (Auto) 1.6, Baso % (Auto) 0.5, Absolute Neuts (auto) 5.9, Absolute Lymphs (auto) 1.69, Nucleated RBC % 0, Sodium 140, Potassium 3.1 L , Chloride 106, Carbon Dioxide 25.0, Anion Gap 9, BUN 22 H, Creatinine 0.87, Estim Creat Clear Calc 42.37, Est GFR (MDRD) Af Amer 80, Est GFR (MDRD) Non-Af 66, BUN/Creatinine Ratio 25.4 H, Glucose 122 H, Calcium 9.3, Phosphorus 5.2 H, Magnesium 2.4 Rhythm Strip Rhythm Strip: Sinus Rhythm Rate: 75 Ectopy: None Cardiology Labs/Tests 12/29/23 05:24: WBC 8.3, RBC 5.21, Hgb 15.8 H, Hct 46.3, MCV 88.9, MCH 30.3, MCHC 34.1, Plt Count 215, MPV 9.9, Immature Gran % (Auto) 0.600, Neut % (Auto) 70.5 H, Lymph % (Auto) 20.4, [place] % (Auto) 6.4, Eos % (Auto) 1.6, Baso % (Auto) 0.5, Absolute Neuts (auto) 5.9, Nucleated RBC % 0, Sodium 140, Potassium 3.1 L, Chloride 106, Carbon Dioxide 25.0, Anion Gap 9, BUN 22 H, Creatinine 0.87, Est GFR (MDRD) Af Amer 80, Est GFR (MDRD) Non-Af 66, BUN/Creatinine Ratio 25.4 H, G lucose 122 H, Calcium 9.3, Phosphorus 5.2 H, Magnesium 2.4 Rhythm: EKG: ECHO: Stress Test: Cardiac Cath: PCI: CT Surgery: Holter monitor: EPS: PPM: CXR: Chest CT Scan:
[2023-12-29 20:44] LABS: BNP,B-Type NATRIURETIC PEPTIDE 97.1 pg/mL (0-100)
[2023-12-29] MEDS: Venlafaxine XR 75 MG Capsule PO (21:02)
[2023-12-29] MEDS: Atorvastatin Calcium 10 MG Tablet PO (21:02)
[2023-12-30 03:13] VITALS: BP 128/74; PULSE 68; RESP 15; TEMP 36.4; O2SAT 100
[2023-12-30 03:19] VITALS: BMI 27.8
[2023-12-30 06:26] LABS: Absolute Neutrophil Count 5.8 X10^3/uL (2.0-7.7); Basophil# 0.03 X10^3/uL; Basophil% 0.4 % (0-1); Eosinophil# 0.21 X10^3/uL; Eosinophils% 2.6 % (0-5); Hematocrit 45.4 % (37-47); Hemoglobin 15.2 g/dL (12.0-15.0); Lymphocyte % 17.1 % (19-41); Mean Corp Hgb Conc 33.5 g/dL (32-36); Mean Corpuscular Hgb 30.6 pg (27.0-32.0); Mean Corpuscular Volume 91.5 fL (81-99); Mean Platelet Vol. 9.8 fl (6.2-12.0); Monocyte# 0.73 X10^3/uL; Monocyte% 8.9 % (0-10); NRBC Flagged by Analyzer 0 % (0-5); Neutrophil # 5.76 X10^3/uL (2.7-7.7); Neutrophil % 70.5 % (47-70); Platelet Count 211 K/mm3 (150-450); RBC Distribution Width CV 13.5 % (11.6-14.6); RBC Distribution Width SD 45.1 fl (35.1-43.9); Red Blood Count 4.96 M/mm3 (4.2-5.4); White Blood Count 8.2 K/mm3 (4.4-11.0)
[2023-12-30 06:48] LABS: Anion Gap 7 (5-15); BUN 30 mg/dL (7-18); BUN/Creat Ratio 32.7 RATIO (10-20); Calcium,Total 9.6 mg/dL (8.5-10.1); Chloride 106 mmol/L (98-107); Creatinine, Serum 0.92 mg/dL (0.55-1.02); EST Glomerular Filtration Rate 62 mL/min (>60); Est Glom Filt Rate - Afr Amer 75 mL/min (>60); Estimated Creatinine Clearance 39.95 ml/min; Glucose 118 mg/dL (74-106); Potassium 3.7 mmol/L (3.5-5.1); Sodium Level 138 mmol/L (136-145)
[2023-12-30 07:19] VITALS: O2SAT 97
[2023-12-30] MEDS: Potassium Chloride Oral Tablet 20 MEQ PO (08:29)
--- NOTE | 2023-12-30 09:01 | DS.PCM_ITS ---
Providers Date of Admission: 12/28/23 Date of Discharge: 12/30/23 Primary Care Physician: Dr. Carl Steen MD Consultations 12/29/23 10:00 Consult: Cardiology Routine Consulting Provider: Yuri Ta Reason for Consult: chf EMERGENT Consult: No MD Notified: Yes Date Notified: 12/29/23 Time Notified: 10:01 Method of Notification: Verbal Reason For Visit: CHF Diagnosis Discharge Diagnosis (1) Paroxysmal atrial fibrillation: Status: Acute Code(s): I48.0 - Paroxysmal atrial fibrillation (2) HTN (hypertension), benign: Status: Acute Code(s): I10 - Essential (primary) hypertension Plan Patient is an 88-year-old lady presenting with progressive shortness of breath 1. Acute congestive heart failure (new onset) with preserved ejection fraction ? EF unknown at this point. Patient has been admitted to monitored bed managed with strict input and output, daily weight, low-sodium diet, fluid restriction as well as treatment with furosemide. Echo ordered for EF assessment ? 12/29/2023 patient responded to diuretic therapy currently negative fluid balance ? 2D echo demonstrated The estimated ejection fraction is 50 %. Mild concentric left ventricular hypertrophy. Bubble contrast study negative for right to left interatrial shunt. Stage 3 diastolic dysfunction. 2. New onset A-fib ? Currently in sinus rhythm with patient Isauro vas 2 score being 2 patient will need to be on long-term systemic anticoagulation discussed with patient ? 12/29/2023 patient went into A-fib with RVR and is stating initiation of Cardizem drip. Consult placed to cardiology Dr. Ta 3. Hypertension - Blood pressure controlled, home medications continued with dose adjustment as needed 4. Left bundle branch block ? Age undetermined ordered an echo if patient has any evidence of regional wall motion abnormalities cardiology be consulted 5. Depression ? Patient is on SNRI did continue 6. Dyslipidemia -Patient is on statin therapy, continued at home dose 7. Tobacco dependence - Counseled on cessation, offered nicotine patch for tobacco cravings 8. Hypokalemia -Corrected per protocol 9. DVT prophylaxis ? Placed on apixaban Time spent in the patient's overall evaluation,decision-making process, review of diagnostic data, adjustment of management, discussion with other providers, nursing nursing and ancillary staff involved in patient's care documentation, 35 Minutes Medications at Discharge Home Medications amlodipine 5 mg tablet 5 mg PO DAILY blood pressure 12/28/23 losartan 100 mg tablet 100 mg PO DAILY blood pressure 12/28/23 simvastatin 20 mg tablet 20 mg PO QHS cholesterol 12/28/23 venlafaxine 75 mg capsule,extended release 24 hr 75 mg PO DAILY depression 12/28/23 apixaban 5 mg tablet (Eliquis) 5 mg PO BID #120 tabs 12/30/23 furosemide 40 mg tablet (Lasix) 40 mg PO DAILY #60 tabs 12/30/23 metoprolol tartrate 25 mg tablet 25 mg PO BID #120 tabs 12/30/23 potassium chloride 20 mEq tablet,extended release(part/cryst) 20 meq PO DAILY #30 tabs 12/30/23 Physical Exam Narrative GENERAL: cooperative HEENT: Atraumatic; normocephalic EYES; Anicteric, Normal Conjunctiva NECK; supple, normal thyroid, RESPIRATORY: Diminished to auscultation CARDIOVASCULAR: Regular S1 S2, GI: soft, normoactive bowel sounds, : No Renal angle tenderness; EXTREMITIES: No edema, no clubbing, MUSCULOSKELETAL: no muscle wasting NEURO: Awake; no lateralizing signs. SKIN: No Rash PSYCH; Flat affect Weight / BMI Weight Weight: 69 kg Body Mass Index (BMI) 27.8 ABG / Lab / Microbiology Data 12/30/23 05:25 12/30/23 05:25 Laboratory: Laboratory Results - last 24 hr 12/29/23 20:00: B-Natriuretic Peptide 97.1 12/30/23 05:25: WBC 8.2, RBC 4.96, Hgb 15.2 H, Hct 45.4, MCV 91.5, MCH 30.6, MCHC 33.5, RDW Std Deviation 45.1 H, RDW Coeff of Angie 13.5, Plt Count 211, MPV 9.8, Immature Gran % (Auto) 0.500, Neut % (Auto) 70.5 H, Lymph % (Auto) 17.1 L, [place] % (Auto) 8.9, Eos % (Auto) 2.6, Baso % (Auto) 0.4, Absolute Neuts (auto) 5.8, Absolute Lymphs (auto) 1.40, Nucleated RBC % 0, Sodium 138, Potassium 3.7, Chloride 106, Carbon Dioxide 25.0, Anion Gap 7, BUN 30 H, Creatinine 0.92, Estim Creat Clear Calc 39.95, Est GFR (MDRD) Af Amer 75, Est GFR (MDRD) Non-Af 62, B UN/Creatinine Ratio 32.7 H, Glucose 118 H, Calcium 9.6 D/C Instructions Discharge Diet: 8 Cup Fluid Restriction and 2000 mg Sodium Diet Discharge Activity: Return to Normal Activity Call your doctor if you observe: Fever of 101 or Higher, Shortness of breath, Fainting spells and Chest pain Meaningful Use Info Meaningful Use Meaningful Use Diagnoses (Choose all that apply): CHF CHF AILIN/ARB ordered at discharge?: No Reason AILIN/ARB not ordered?: Normal EF Documented LVEF (%): 50 Ischemic Stroke Statin Dosing Therapy Reference: STATIN DOSE THERAPY REFERENCE: * Patients > 75 years receive moderate or high dose statin therapy. * Patients 75 years or YOUNGER should receive HIGH intensity statin dose unless contraindicated. You will be required to document reason for non-treatment if statin daily dose does not meet guidelines. HIGH DOSE STATIN THERAPY DAILY Atorvastatin > than or = to 40 mg Rosuvastatin > than or = to 20 mg Amlodipine + Atorvastatin > than or = to 2.5/40 mg Ezetimibe + Simvastatin 10/80 mg Simvastatin 80mg Discharge Plan Admission Admit Date/Time: 12/28/23 07:47 Attending Provider: Marco Dallas Primary Care Provider: Carl Steen Consulting Providers: Yuri Ta Discharge Orders/Prescriptions Prescriptions: New potassium chloride 20 mEq Tablet,Er Particles/Crystals 20 meq PO DAILY Qty: 30 0RF metoprolol tartrate 25 mg Tablet 25 mg PO BID Qty: 120 0RF Eliquis 5 mg Tablet 5 mg PO BID Qty: 120 0RF furosemide [Lasix] 40 mg tablet 40 mg PO DAILY Qty: 60 0RF Continued venlafaxine 75 mg capsule,extended release 24hr 75 mg PO DAILY amlodipine 5 mg tablet 5 mg PO DAILY simvastatin 20 mg tablet 20 mg PO QHS losartan 100 mg tablet 100 mg PO DAILY Referrals / Follow Up: Carl Steen MD [Primary Care Provider] - Disposition Disposition (needs filled in before D/C Order can be placed): Home, Self Care Charges/Coding Visit Charges Inpatient E&M: 52482 Disch Hosp >30min
--- NOTE | 2023-12-30 10:37 | CASEMGMT ---
Addendum entered by Sanjuanita Allen 12/30/23 12:27: Pt did not qualify for home O2 and is cleared for DC from the CM perspective. Addendum entered by Sanjuanita Allen 12/30/23 11:16: [facility] Pharm calls back and states that they are able to apply the trial card. The total cost for the pt medications is now 11$. JESUS VALLE to pt room at this time and updated with this information. Pt understands this Rx trial card can only be used once. Pt thanks this RN CM and Pt provided CC for payment method and the pharmacist will deliver meds to bed soon. Pt RN at bedside and to test pt for home oxygen needs. Will follow. Original Note: Order for DC placed. Pt has a new Rx for Eliquis. TC to [facility] and they state that the medication will cost 636$ after insurance. This RN CM inquired if we can use the savings/ trial card and the pharmacists states that they will call this RN LEONARD back. Will follow.
[2023-12-30 11:04] VITALS: BP 108/55; PULSE 77; RESP 15; TEMP 36.3; O2SAT 98
[2023-12-30 11:10] VITALS: PULSE 77
[2023-12-30] MEDS: APIXABAN 5 MG TABLET PO (11:10)
[2023-12-30] MEDS: Losartan Potassium 100 MG Tablet PO (11:10)
[2023-12-30] MEDS: Metoprolol Tartrate 25 MG Tablet PO (11:10)
[2023-12-30] MEDS: amLODIPine 5 MG Tablet PO (11:16)
--- NOTE | 2023-12-30 12:13 | PHA.DC_ITS ---
Pharmacy [facility] Pharmacy Service has performed discharge medication reconciliation and counseling for this patient. The patient's discharge medication list was reviewed for discrepancies and discrepancies were resolved. The patient was counseled on the following discharge medications and changes in medications for homegoing were reviewed. 1. ELIQUIS 2. LASIX 3. LOPRESSOR 4. KDUR The Reason for Use, instructions for use, and potential side effects were reviewed for all new medications. The patient's questions regarding all of their medications were answered. The patient was able to verbally demonstrate an understanding of their discharge medications. The patient was counselled by Sherrell Stein, Michelle Candidate
[2023-12-30 12:16] VITALS: O2SAT 95; O2SAT 96
== END 2023-12-30 13:53 | disposition home or self-care (01) | DRG 291 ==
LOC: ED 07:58 → PCU 08:04
PROVIDERS: Internal Medicine Cardiovascular Disease; Admitting Provider Internal Medicine; Emergency Provider Emergency Medicine; PCP Family Medicine; Visit Provider Internal Medicine
DX: I11.0 Hypertensive heart disease with heart failure (principal); I50.31 Acute diastolic (congestive) heart failure; E78.5 Hyperlipidemia, unspecified; I48.0 Paroxysmal atrial fibrillation; F32.A Depression, unspecified; F17.290 Nicotine dependence, other tobacco product, uncomplicated; I44.7 Left bundle-branch block, unspecified; E87.6 Hypokalemia; G47.30 Sleep apnea, unspecified; Z79.899 Other long term (current) drug therapy
CPT/HCPCS: 36415; 71045; 80048; 83735; 83880; 84100; 84484; 85025; 93005; 93306; 94668; 94762; 96361; 96374; 99284; 99285; 99406; J7030; A4216; J1940; J2405

== ENCOUNTER 2024-01-02 15:47 | Emergency (ER) | payer MEDICARE, OTHER, SELFPAY ==
[2024-01-02 15:48] VITALS: BP 132/70; PULSE 55; RESP 16; TEMP 36.2; O2SAT 98; BMI 26.9
--- NOTE | 2024-01-02 16:12 | EKG12_ITS ---
Test Reason : PALP Blood Pressure : / mmHG Vent. Rate : 128 BPM Atrial Rate : 000 BPM P-R Int : 000 ms QRS Dur : 124 ms QT Int : 350 ms P-R-T Axes : 000 -22 141 degrees QTc Int : 511 ms Atrial fibrillation /Flutter with RVR Left bundle branch block Abnormal ECG Confirmed by Chato Cota ([id number]), editor news SOURAV CARPENTER ([id number]) on 01/03/2024 11:28:58 AM Referred By: BB/MONICA Confirmed By:Chato Cota
--- NOTE | 2024-01-02 16:20 | RAD_ITS ---
EXAM: XR CHEST, 1 VIEW CLINICAL INDICATION: palpitations TECHNIQUE: Frontal view of the chest. COMPARISON: 12/28/2023 FINDINGS: LUNGS AND PLEURAL SPACES: No significant abnormality. No consolidation or edema. No pneumothorax. No effusion. HEART: No significant abnormality. Cardiac silhouette not enlarged. MEDIASTINUM: Central airways and mediastinal contour are unremarkable. BONES/JOINTS: Degenerative changes in the spine and shoulders. No acute fracture. SOFT TISSUES: No significant abnormality. RAD/Chest 1 View (Portable) IMPRESSION: No acute findings in the chest. Electronically Signed: Scott Lopez DO at 16:37 EDT ,
--- NOTE | 2024-01-02 16:22 | ED.VIS.CHEST ---
HPI <NKECHI Barnett - Last Filed: 01/02/24 21:57> History of Present Illness Chief Complaint: Palpitations Narrative Narrative: Patient presenting today due to tachycardia that started this afternoon. She has a newly diagnosed she recently was diagnosed with atrial fibrillation and is on Eliquis and metoprolol. She was recently admitted at the hospital from 12/27 through 12/29 for a CHF exacerbation. She reports that since being home she has felt intermittently short of breath but otherwise has been doing okay. She denies currently feeling short of breath. Today she was taking a nap and her Apple Watch alerted her that her heart rate was around 120 bpm prompting her to come in. She denies any feelings of palpitations or chest pain. She has had her morning dose of metoprolol today. [facility] <NKECHI Barnett - Last Filed: 01/02/24 21:57> [facility] Medical History Smoker Sleep apnea HTN (hypertension) Afib Home Medications ?Medication ?Instructions ?Recorded ?Last Taken ?Type amlodipine 5 mg tablet 5 mg PO DAILY blood pressure 12/28/23 Unknown History losartan 100 mg tablet 100 mg PO DAILY blood pressure 12/28/23 Unknown History simvastatin 20 mg tablet 20 mg PO QHS cholesterol 12/28/23 Unknown History venlafaxine 75 mg capsule,extended 75 mg PO DAILY depression 12/28/23 Unknown History release 24 hr apixaban 5 mg tablet (Eliquis) 5 mg PO BID #120 tabs 12/30/23 Unknown Rx furosemide 40 mg tablet (Lasix) 40 mg PO DAILY #60 tabs 12/30/23 Unknown Rx metoprolol tartrate 25 mg tablet 25 mg PO BID #120 tabs 12/30/23 Unknown Rx potassium chloride 20 mEq 20 meq PO DAILY #30 tabs 12/30/23 Unknown Rx tablet,extended release(part/cryst) Allergy/AdvReac Type Severity Reaction Status Date / Time Sulfa (Sulfonamide Allergy Mild Rash Verified 01/02/24 15:50 Antibiotics) Social History Smoking Status: Former smoker ROS <NKECHI Barnett - Last Filed: 01/02/24 21:57> ROS ED Constitutional Constitutional ED: Denies chills or fever(s) Cardiovascular Cardiovascular: Reports other Details: Tachycardia ; Denies chest pain or palpitations Respiratory/Chest Respiratory/Chest: Denies cough or dyspnea Gastrointestinal Gastrointestinal: Denies abdominal pain, nausea or vomiting Musculoskeletal Musculoskeletal: Denies arthralgias or myalgias Integumentary Denies rash Neurologic Neurologic: Denies weakness EXAM <NKECHI Barnett - Last Filed: 01/02/24 21:57> Physical Exam Const Vital Signs: 01/02/24 16:30 01/02/24 16:52 01/02/24 18:12 Temperature 98.7 F Temperature Source Oral Pulse Rate 138 H 116 H 120 H Respiratory Rate 20 H 17 25 H Blood Pressure 130/105 H 127/93 H 127/84 H Blood Pressure Mean 113 104 98 Pulse Ox 97 99 98 Oxygen Delivery Method Room Air Room Air 01/02/24 20:00 01/02/24 20:50 Temperature 98.1 F Temperature Source Pulse Rate 52 L 57 L Respiratory Rate 18 16 Blood Pressure 137/66 H 134/67 H Blood Pressure Mean 89 89 Pulse Ox 97 97 Oxygen Delivery Method Room Air Positive well nourished, well developed and no apparent distress General Appearance ED: well developed HEENT Reports normocephalic and head/scalp atraumatic Mouth ED: Yes moist mucous membranes normal Eyes PERRL and EOMs intact bilaterally Neck full ROM and supple Chest Wall inspection of chest normal Resp normal respiratory effort and clear to auscultation bilaterally Cardio Rate: tachycardic Rhythm: abnormal rhythm irregularly irregular GI soft to palpation, non-tender, non-distended and no masses Back/Spine normal ROM and normal to inspection Extremity normal to inspection and full ROM Neuro oriented x3, CN's II-XII intact bilaterally, moves all extremities, no focal motor deficits and no sensory deficits noted Sensorium / Orientation: awake and alert Psych mental status grossly normal and thought process normal Skin no rashes or lesions noted and no wounds <Dr. Kamille Warren DO - Last Filed: 01/03/24 16:32> Physical Exam Const Vital Signs: 01/02/24 16:30 01/02/24 16:52 01/02/24 18:12 Temperature 98.7 F Temperature Source Oral Pulse Rate 138 H 116 H 120 H Respiratory Rate 20 H 17 25 H Blood Pressure 130/105 H 127/93 H 127/84 H Blood Pressure Mean 113 104 98 Pulse Ox 97 99 98 Oxygen Delivery Method Room Air Room Air 01/02/24 20:00 01/02/24 20:50 Temperature 98.1 F Temperature Source Pulse Rate 52 L 57 L Respiratory Rate 18 16 Blood Pressure 137/66 H 134/67 H Blood Pressure Mean 89 89 Pulse Ox 97 97 Oxygen Delivery Method Room Air [facility] <NKECHI Barnett - Last Filed: 01/02/24 21:57> [facility] Narrative Medical decision making narrative: Patient presenting after her Apple Watch told her that her heart rate was elevated, she was asymptomatic with this. Patient is in atrial fibrillation with a rate in the 120s to 140s. She was given IV metoprolol x 3. I did speak with Dr. Petersen with cardiology, he recommends increasing her metoprolol 25 mg twice daily to 50 mg twice daily. She was given a dose of p.o. metoprolol 50 mg here as she was still tachycardic around 110. Patient then did convert to sinus rhythm and now has a rate in the 50s bpm. She was ambulated and feels well. She does have a follow-up with her PCP on Wednesday. I have instructed her to go back to her original dose of metoprolol if her heart rate remains in the 50s and not to take the increased dose. Labs were obtained, CBC unremarkable, BUN slightly elevated at 23, troponin 18. Chest x-ray negative for acute findings. Return instructions discussed and patient discharged home in stable condition. Lab Data Attestation: I reviewed the patient's lab results. Labs: Laboratory Results - last 24 hr 01/02/24 16:05 WBC 6.7 RBC 4.64 Hgb 14.5 Hct 41.4 MCV 89.2 MCH 31.3 MCHC 35.0 RDW Std Deviation 43.2 RDW Coeff of Angie 13.2 Plt Count 211 MPV 9.9 Immature Gran % (Auto) 0.300 Neut % (Auto) 67.8 Lymph % (Auto) 23.9 Sedgwick % (Auto) 5.9 Eos % (Auto) 1.5 Baso % (Auto) 0.6 Absolute Neuts (auto) 4.6 Absolute Lymphs (auto) 1.61 Nucleated RBC % 0 Sodium 142 Potassium 3.6 Chloride 111 H Carbon Dioxide 26.0 Anion Gap 5 BUN 23 H Creatinine 0.96 Estim Creat Clear Calc 37.67 Est GFR (MDRD) Af Amer 71 Est GFR (MDRD) Non-Af 58 L BUN/Creatinine Ratio 23.9 H Glucose 110 H Calcium 9.1 Troponin I High Sens 18 Radiography X-Ray: Read by ED Physician Diagnostic Testing: Clinical Impression(s) from Imaging Studies Chest X-Ray 01/02/24 16:20 IMPRESSION: No acute findings in the chest. Electronically Signed: Scott VTimo Lopez DO at 16:37 EDT , EKG Initial EKG: Comments: 128 bpm, atrial fibrillation with RVR, left bundle branch block, no ST elevation <Dr. Kamille Warren, - Last Filed: 01/03/24 16:32> MDM MDM Narrative Medical decision making narrative: Patient presenting after her Apple Watch told her that her heart rate was elevated, she was asymptomatic with this. Patient is in atrial fibrillation with a rate in the 120s to 140s. She was given IV metoprolol x 3. I did speak with Dr. Petersen with cardiology, he recommends increasing her metoprolol 25 mg twice daily to 50 mg twice daily. She was given a dose of p.o. metoprolol 50 mg here as she was still tachycardic around 110. Patient then did convert to sinus rhythm and now has a rate in the 50s bpm. She was ambulated and feels well. She does have a follow-up with her PCP on Wednesday. I have instructed her to go back to her original dose of metoprolol if her heart rate remains in the 50s and not to take the increased dose. Labs were obtained, CBC unremarkable, BUN slightly elevated at 23, troponin 18. Chest x-ray negative for acute findings. Return instructions discussed and patient discharged home in stable condition. I have personally performed a face to face assessment of the patient and have reviewed the JOHNY Note. I performed a substantive portion of the visit including all aspects of the following. My contreras findings include: History is Patient is an 88-year-old female with recent admission for new onset of proximal atrial fibrillation, started on metoprolol 25 mg twice daily as well and has anticoagulation with Eliquis. Her only symptom and some mild shortness of breath and Tapin her Apple Watch at notifies her she is in A-fib. Today she woke up from a nap and her Apple Watch again notified her that her heart rate was fast. Patient arrives hemodynamically stable however she is in atrial fibrillation with RVR. Patient is given 3 doses of IV metoprolol with improvement of her heart rate (90s to 1 teens). She remains hemodynamically stable and relatively asymptomatic. Cardiac workup largely negative with no ischemic EKG changes, signs of heart strain and only minimally elevated troponin which appears to be near her baseline. Patient does have intermittent episodes where she will almost try to convert to normal sinus rhythm and her heart rate will drop into the 40s to 50s. I do not want to give her further Cardizem or IV metoprolol because of this and my fear that when she does convert she will be bradycardic. Patient is given 50 mg of oral metoprolol in the emergency room. She is monitored for some time and did convert to normal sinus rhythm at a rate in the 50s. She is ambulated and feels well. Will follow-up with PCP as scheduled as well as cardiology. Is given instructions to take an extra dose of metoprolol showed her heart rates become elevated again. Case was initially discussed with Dr. Petersen, cardiology who had suggested increasing her metoprolol and was comfortable with outpatient follow-up. Given that she just had an echocardiogram with no acute symptoms I do not think she requires readmission to the hospital. Patient and significant other are agreeable with this plan of care. Other additions or changes: [None] History & Record Review Additional record(s) reviewed:: Prior inpatient record (Admission 12/27 through 12/29 for new onset proximal atrial fibrillation. Echocardiogram performed showed EF of 50% with mild concentric left ventricular hypertrophy. Stage III diastolic dysfunction. Diagnosed with acute congestive heart failure (new onset) with preserved ejection fraction.) Lab Data Labs: Laboratory Results - last 24 hr 01/02/24 16:05 WBC 6.7 RBC 4.64 Hgb 14.5 Hct 41.4 MCV 89.2 MCH 31.3 MCHC 35.0 RDW Std Deviation 43.2 RDW Coeff of Angie 13.2 Plt Count 211 MPV 9.9 Immature Gran % (Auto) 0.300 Neut % (Auto) 67.8 Lymph % (Auto) 23.9 Sedgwick % (Auto) 5.9 Eos % (Auto) 1.5 Baso % (Auto) 0.6 Absolute Neuts (auto) 4.6 Absolute Lymphs (auto) 1.61 Nucleated RBC % 0 Sodium 142 Potassium 3.6 Chloride 111 H Carbon Dioxide 26.0 Anion Gap 5 BUN 23 H Creatinine 0.96 Estim Creat Clear Calc 37.67 Est GFR (MDRD) Af Amer 71 Est GFR (MDRD) Non-Af 58 L BUN/Creatinine Ratio 23.9 H Glucose 110 H Calcium 9.1 Troponin I High Sens 18 Radiography Diagnostic Testing: Clinical Impression(s) from Imaging Studies Chest X-Ray 01/02/24 16:20 IMPRESSION: No acute findings in the chest. Electronically Signed: Scott Lopez DO at 16:37 EDT , <Dr. Kamille Warren, - Last Filed: 01/03/24 16:32> Critical Care Time Critical Care Time: Yes Critical care time (excluding procedures): 30-74 minutes (38), Including time spent: (Multiple doses of IV metoprolol for rate control of atrial fibrillation with RVR), Discussing w/Patient &/or Family/Experimental Technician, Discussing w/Consultants and Performing Direct Patient Care at Bedside Discharge Plan Triage Chief Complaint: Palpitations ED Midlevel Provider: Cecelia Shields ED Provider: Kamille Warren Dx/Rx/DC Orders Clinical Impression: Atrial fibrillation with RVR Instructions: AFib Dc Prescriptions: No Action venlafaxine 75 mg capsule,extended release 24hr 75 mg PO DAILY amlodipine 5 mg tablet 5 mg PO DAILY simvastatin 20 mg tablet 20 mg PO QHS losartan 100 mg tablet 100 mg PO DAILY potassium chloride 20 mEq Tablet,Er Particles/Crystals 20 meq PO DAILY Qty: 30 0RF metoprolol tartrate 25 mg Tablet 25 mg PO BID Qty: 120 0RF Eliquis 5 mg Tablet 5 mg PO BID Qty: 120 0RF furosemide [Lasix] 40 mg tablet 40 mg PO DAILY Qty: 60 0RF Primary Care Provider: Carl Steen Referrals: Carl Steen MD [Primary Care Provider] - 3-5 Days Activity Restrictions/Additional Instructions: Increase your metoprolol to 50 mg twice daily (two tablets). If your heart rate is low with this medication adjustment (in the 50's), go back to taking 25 mg (one tablet) twice daily. Print Language: Iranian Disposition Disposition: Home, Self Care Discharge Date/Time: 01/02/24 20:52
[2024-01-02 16:24] LABS: Absolute Lymphocyte Count 1.61 X10^3/uL (0.83-4.51); Absolute Neutrophil Count 4.6 X10^3/uL (2.0-7.7); Basophil# 0.04 X10^3/uL; Basophil% 0.6 % (0-1); Eosinophils% 1.5 % (0-5); Hematocrit 41.4 % (37-47); Hemoglobin 14.5 g/dL (12.0-15.0); Lymphocyte # 1.61 X10^3/ul (0.83-4.51); Lymphocyte % 23.9 % (19-41); Mean Corpuscular Hgb 31.3 pg (27.0-32.0); Mean Corpuscular Volume 89.2 fL (81-99); Mean Platelet Vol. 9.9 fl (6.2-12.0); Monocyte% 5.9 % (0-10); NRBC Flagged by Analyzer 0 % (0-5); Neutrophil # 4.57 X10^3/uL (2.7-7.7); Neutrophil % 67.8 % (47-70); Platelet Count 211 K/mm3 (150-450); RBC Distribution Width CV 13.2 % (11.6-14.6); RBC Distribution Width SD 43.2 fl (35.1-43.9); Red Blood Count 4.64 M/mm3 (4.2-5.4); White Blood Count 6.7 K/mm3 (4.4-11.0)
[2024-01-02 16:30] VITALS: BP 130/105; PULSE 138; RESP 20; O2SAT 97
[2024-01-02] MEDS: Metoprolol Tartrate 5 MG/5 ML Vial IV ×3 (16:31→16:53)
[2024-01-02 16:52] VITALS: BP 127/93; PULSE 116; RESP 17; O2SAT 99
[2024-01-02 16:52] LABS: Anion Gap 5 (5-15); BUN 23 mg/dL (7-18); BUN/Creat Ratio 23.9 RATIO (10-20); Calcium,Total 9.1 mg/dL (8.5-10.1); Chloride 111 mmol/L (98-107); Creatinine, Serum 0.96 mg/dL (0.55-1.02); EST Glomerular Filtration Rate 58 mL/min (>60); Est Glom Filt Rate - Afr Amer 71 mL/min (>60); Estimated Creatinine Clearance 37.67 ml/min; Glucose 110 mg/dL (74-106); Potassium 3.6 mmol/L (3.5-5.1); Sodium Level 142 mmol/L (136-145); Troponin-I HS (w/2H Reflex) 18 pg/mL (3.0-54.0)
[2024-01-02] MEDS: Metoprolol Tartrate 50 MG Tablet PO (17:37)
[2024-01-02 18:12] VITALS: BP 127/84; PULSE 120; RESP 25; TEMP 37.1; O2SAT 98
[2024-01-02 18:20] LABS: Reflex Troponin-HS? (from REC) Y
[2024-01-02 20:00] VITALS: BP 137/66; PULSE 52; RESP 18; O2SAT 97
[2024-01-02 20:50] VITALS: BP 134/67; PULSE 57; RESP 16; TEMP 36.7; O2SAT 97
== END 2024-01-02 20:52 | disposition home or self-care (01) ==
PROVIDERS: Physician Assistant; Emergency Provider Emergency Medicine; PCP Family Medicine; Visit Provider Emergency Medicine
DX: I48.91 Unspecified atrial fibrillation (principal); I11.0 Hypertensive heart disease with heart failure; I50.31 Acute diastolic (congestive) heart failure; Z87.891 Personal history of nicotine dependence; Z79.01 Long term (current) use of anticoagulants; Z79.899 Other long term (current) drug therapy
CPT/HCPCS: 71045; 80048; 84484; 85025; 93005; 96374; 96375; 96376; 99284; A4216

== ENCOUNTER 2024-01-09 06:03 | Observation (INO) | payer MEDICARE, OTHER, SELFPAY ==
[2024-01-09] VITALS (10 sets, daily range): BP systolic 119–147; BP diastolic 66–101; PULSE 51–114; RESP 14–23; TEMP 36.3–36.8; O2SAT 95–99; BMI 28.0
--- NOTE | 2024-01-09 06:11 | EKG12_ITS ---
Test Reason : DYSRHYTHMIA Blood Pressure : / mmHG Vent. Rate : 122 BPM Atrial Rate : 000 BPM P-R Int : 000 ms QRS Dur : 124 ms QT Int : 386 ms P-R-T Axes : 000 -25 129 degrees QTc Int : 550 ms Atrial fibrillation with rapid ventricular response Left bundle branch block Abnormal ECG Confirmed by KINGSTON SHETH, MARY ([id number]), book editor SOURAV CARPENTER ([id number]) on 01/10/2024 10:04:40 AM Referred By: Confirmed By:MARY ONOFRE MD
--- NOTE | 2024-01-09 06:12 | EX.ED.DYSGE1 ---
HPI History of Present Illness Chief Complaint: Palpitations Informant: patient and spouse/S.O. Narrative Narrative: 88-year-old female recently diagnosed with A-fib, states she has been having symptoms with that consisting of mild dyspnea and tingling all over for the past week or so off-and-on. She has been tracking her heart rate with her Apple Watch periodically, it was fast yesterday evening and this morning after sleeping comfortably, it was in the 140s and she had been still symptomatic so she was advised to come back to the hospital. She recently was admitted about 2 weeks ago and had some medication changes including adding Eliquis and amiodarone and changing her metoprolol. Follows w/ Dr. Ta and John Pruett in Cardiology. [facility] Medical History Anxiety and depression Smoker Sleep apnea HTN (hypertension) Afib Home Medications ?Medication ?Instructions ?Recorded ?Last Taken ?Type amlodipine 5 mg tablet 5 mg PO DAILY blood pressure 12/28/23 01/08/24 History losartan 100 mg tablet 100 mg PO DAILY blood pressure 12/28/23 01/08/24 History simvastatin 20 mg tablet 20 mg PO QHS cholesterol 12/28/23 01/08/24 History venlafaxine 75 mg capsule,extended 75 mg PO QHS depression 12/28/23 01/08/24 History release 24 hr apixaban 5 mg tablet (Eliquis) 5 mg PO BID #120 tabs 12/30/23 01/08/24 Rx furosemide 40 mg tablet (Lasix) 40 mg PO DAILY #60 tabs 12/30/23 01/08/24 Rx potassium chloride 20 mEq 20 meq PO DAILY #30 tabs 12/30/23 01/08/24 Rx tablet,extended release(part/cryst) amiodarone 200 mg tablet 200 mg PO .COMPLEX #35 tabs 01/06/24 01/08/24 Rx metoprolol tartrate 25 mg tablet 25 mg PO BID 01/06/24 01/08/24 History Allergy/AdvReac Type Severity Reaction Status Date / Time Sulfa (Sulfonamide Allergy Mild Rash Verified 01/04/24 10:14 Antibiotics) Family History (Reviewed 01/04/24 @ 11:22 by John Pruett [employer]IDENT [employer]NAG[employer], [employer]IDENT [employer]-C) Mother Hypertension Grandfather Hypertension Grandmother Hypertension Father Cancer Surgical History History of tonsillectomy History of carpal tunnel release Social History Smoking Status: Former smoker how long ago did patient quit smokin week ago alcohol intake: current alcohol intake frequency: holidays/special occasions only substance use type: does not use caffeine: No ROS ROS ED Constitutional Constitutional ED: Denies chills or fever(s) Eyes Eyes: Denies change in vision or diplopia ENT ENT ED: Denies rhinorrhea or sore throat Cardiovascular Cardiovascular: Denies chest pain, palpitations or racing heartbeat Respiratory/Chest Respiratory/Chest: Reports dyspnea; Denies cough Gastrointestinal Gastrointestinal: Denies abdominal pain, diarrhea, nausea or vomiting Genitourinary Genitourinary ED: Denies dysuria or hematuria Musculoskeletal Musculoskeletal: Denies back pain or neck pain Integumentary Denies abscess or rash Neurologic Neurologic: Reports paresthesias; Denies headache(s) or weakness Psychiatric Psychiatric: Denies anxiety or suicidal thoughts EXAM Physical Exam Const Vital Signs: 01/09/24 06:03 01/09/24 06:19 01/09/24 06:34 Temperature 98.1 F Temperature Source Oral Pulse Rate 114 H 90 Respiratory Rate 16 16 Respiratory Effort Normal Blood Pressure 146/95 H 119/66 Blood Pressure Mean 112 83 Pulse Ox 95 97 Oxygen Delivery Method Room Air Room Air Positive well nourished and well developed General Appearance ED: well developed and NAD HEENT Reports moist mucous membranes normocephalic and atraumatic Eyes PERRL and EOMs intact bilaterally Neck full ROM, supple and no JVD Resp normal respiratory effort and clear to auscultation bilaterally Effort and Inspection: able to speak in complete sentences Cardio no murmurs Rate: tachycardic Rhythm: abnormal rhythm irregularly irregular GI non-tender and non-distended Auscultation: normoactive bowel sounds Palpation: soft Back/Spine no CVA tenderness General Back: other FROM Extremity normal to inspection General Extremety ED: Negative for edema, pulses abnormal or tenderness General Extremity: Negative for edema or pulses abnormal Neuro oriented x3, CN's II-XII intact bilaterally and no sensory deficits noted Sensorium / Orientation: awake and alert Motor Exam: strength 5/5 throughout Skin no rashes or lesions noted and no wounds MDM MDM MDM Narrative Medical decision making narrative: Patient in rapid A-fib, which slowed her down some Cardizem, rate 70-90, but still dyspneic. Labs noted, troponin normal, EKG showed no acute injury pattern. Discussed with Dr. Blackmon who agrees with admitting the patient for further evaluation for pacemaker, Tikosyn induction, cardioversion, etc. Discussed w/ hospitalist. History & Record Review Additional record(s) reviewed:: Prior ED visit and Other (echo 12/28/23: stage 3 diastolic dysfxn, nml LV size and EF) Lab Data Attestation: I reviewed the patient's lab results. Labs: Laboratory Results - last 24 hr 01/09/24 06:30 WBC 8.5 RBC 4.98 Hgb 15.1 H Hct 44.2 MCV 88.8 MCH 30.3 MCHC 34.2 RDW Std Deviation 42.8 RDW Coeff of Angie 13.2 Plt Count 250 MPV 9.8 Immature Gran % (Auto) 0.500 Neut % (Auto) 71.9 H Lymph % (Auto) 19.5 Andrews % (Auto) 5.3 Eos % (Auto) 2.1 Baso % (Auto) 0.7 Absolute Neuts (auto) 6.1 Absolute Lymphs (auto) 1.66 Nucleated RBC % 0 Sodium 142 Potassium 3.6 Chloride 110 H Carbon Dioxide 23.0 Anion Gap 9 BUN 17 Creatinine 0.93 Estim Creat Clear Calc 39.72 Est GFR (MDRD) Af Amer 73 Est GFR (MDRD) Non-Af 60 BUN/Creatinine Ratio 18.2 Glucose 133 H Calcium 9.1 Troponin I High Sens 16 Rhythm Strip Rhythm Strip: A-fib Rate: 120 Ectopy: None EKG Initial EKG: Attestation: I personally reviewed and interpreted this EKG as follows: Interpretation: No Acute Injury Pattern, Atrial Fibrillation (w/ RVR) and LBBB Prior EKG tracings: available for review Prior: Unchanged (w/r/t morphology) Management Discussion w/another healthcare provider: Hospitalist and Horse Race Timer Discharge Plan Triage Chief Complaint: Palpitations ED Provider: Herman Faulkner Dx/Rx/DC Orders Clinical Impression: Atrial fibrillation with RVR Prescriptions: No Action venlafaxine 75 mg capsule,extended release 24hr 75 mg PO DAILY amlodipine 5 mg tablet 5 mg PO DAILY simvastatin 20 mg tablet 20 mg PO QHS losartan 100 mg tablet 100 mg PO DAILY potassium chloride 20 mEq Tablet,Er Particles/Crystals 20 meq PO DAILY Qty: 30 0RF Eliquis 5 mg Tablet 5 mg PO BID Qty: 120 0RF furosemide [Lasix] 40 mg tablet 40 mg PO DAILY Qty: 60 0RF metoprolol tartrate 25 mg tablet 25 mg PO BID amiodarone 200 mg tablet 200 mg PO .COMPLEX Qty: 35 11RF Rx Instructions: 200 mg orally twice day X 1 week then once a day; Primary Care Provider: Carl Steen Referrals: Carl Steen MD [Primary Care Provider] - Print Language: Emirati Disposition Disposition: Acute Care Hospital [facility]
[2024-01-09] MEDS: 0.9% Normal Saline (1000mL) 1,000 ML 100 ML IV (06:27)
[2024-01-09] MEDS: dilTIAZem 25 MG/5 ML Vial 20 MG IV BOLUS (06:30)
[2024-01-09 06:47] LABS: Absolute Lymphocyte Count 1.66 X10^3/uL (0.83-4.51); Absolute Neutrophil Count 6.1 X10^3/uL (2.0-7.7); Basophil# 0.06 X10^3/uL; Basophil% 0.7 % (0-1); Eosinophil# 0.18 X10^3/uL; Eosinophils% 2.1 % (0-5); Hematocrit 44.2 % (37-47); Hemoglobin 15.1 g/dL (12.0-15.0); Lymphocyte # 1.66 X10^3/ul (0.83-4.51); Lymphocyte % 19.5 % (19-41); Mean Corp Hgb Conc 34.2 g/dL (32-36); Mean Corpuscular Hgb 30.3 pg (27.0-32.0); Mean Corpuscular Volume 88.8 fL (81-99); Mean Platelet Vol. 9.8 fl (6.2-12.0); Monocyte# 0.45 X10^3/uL; Monocyte% 5.3 % (0-10); NRBC Flagged by Analyzer 0 % (0-5); Neutrophil # 6.13 X10^3/uL (2.7-7.7); Neutrophil % 71.9 % (47-70); Platelet Count 250 K/mm3 (150-450); RBC Distribution Width CV 13.2 % (11.6-14.6); RBC Distribution Width SD 42.8 fl (35.1-43.9); Red Blood Count 4.98 M/mm3 (4.2-5.4); White Blood Count 8.5 K/mm3 (4.4-11.0)
[2024-01-09 07:06] LABS: Anion Gap 9 (5-15); BUN 17 mg/dL (7-18); BUN/Creat Ratio 18.2 RATIO (10-20); Calcium,Total 9.1 mg/dL (8.5-10.1); Chloride 110 mmol/L (98-107); Creatinine, Serum 0.93 mg/dL (0.55-1.02); EST Glomerular Filtration Rate 60 mL/min (>60); Est Glom Filt Rate - Afr Amer 73 mL/min (>60); Estimated Creatinine Clearance 39.72 ml/min; Glucose 133 mg/dL (74-106); Potassium 3.6 mmol/L (3.5-5.1); Sodium Level 142 mmol/L (136-145); Troponin-I HS 16 pg/mL (3.0-54.0)
[2024-01-09] MEDS: Ondansetron 4 MG/2 ML Vial IV (07:17)
--- NOTE | 2024-01-09 07:40 | RAD_ITS ---
INDICATION: Shortness of breath EXAMINATION/TECHNIQUE: X-RAY - XR Chest 1 View COMPARISON: January 02, 2024 FINDINGS: LINES/DEVICES: None. LUNGS: No consolidation, edema or effusion. No pneumothorax. MEDIASTINUM AND CARDIOVASCULAR STRUCTURES: Cardiac silhouette not enlarged. Central airways and mediastinal contour are unremarkable. BONES AND SOFT TISSUES: Unremarkable. RAD/Chest 1 View (Portable) IMPRESSION: No radiographic evidence of acute cardiopulmonary disease. Electronically Signed: Hamida Quezada MD at 8:16 EDT ,
--- NOTE | 2024-01-09 07:42 | PCM.HP.STD ---
[facility] - General General Date of Admission: 01/09/24 HPI Narrative NATALEE ARAIZA, is a 88 F who presents with palpitations which she woke up this morning around 5 AM and noticed that her heart rate was 146. She has a history of A-fib with RVR and has been having medication changes over the last couple weeks. She was also having side effect issues with significant bradycardia so she had to be lowered to metoprolol 25 mg p.o. twice daily which had been increased 2 weeks prior. She is also been started on amiodarone. She continues to have issues with A-fib and periodic RVR and so she presents to the hospital with continued symptoms. She is given 20 mg of Cardizem x 1 and heart rate improved to the 90s. Cardiology was consulted and recommended observation for evaluation for possible pacemaker or Tikosyn initiation. [facility] Medical History Anxiety and depression Smoker Sleep apnea HTN (hypertension) Afib Home Medications ?Medication ?Instructions ?Recorded ?Last Taken ?Type amlodipine 5 mg tablet 5 mg PO DAILY blood pressure 12/28/23 01/08/24 History losartan 100 mg tablet 100 mg PO DAILY blood pressure 12/28/23 01/08/24 History simvastatin 20 mg tablet 20 mg PO QHS cholesterol 12/28/23 01/08/24 History venlafaxine 75 mg capsule,extended 75 mg PO QHS depression 12/28/23 01/08/24 History release 24 hr apixaban 5 mg tablet (Eliquis) 5 mg PO BID #120 tabs 12/30/23 01/08/24 Rx furosemide 40 mg tablet (Lasix) 40 mg PO DAILY #60 tabs 12/30/23 01/08/24 Rx potassium chloride 20 mEq 20 meq PO DAILY #30 tabs 12/30/23 01/08/24 Rx tablet,extended release(part/cryst) amiodarone 200 mg tablet 200 mg PO .COMPLEX #35 tabs 01/06/24 01/08/24 Rx metoprolol tartrate 25 mg tablet 25 mg PO BID 01/06/24 01/08/24 History Allergy/AdvReac Type Severity Reaction Status Date / Time Sulfa (Sulfonamide Allergy Mild Rash Verified 01/04/24 10:14 Antibiotics) Family History (Reviewed 01/04/24 @ 11:22 by John Pruett FIXING MACHINE OPERATOR, FIXING MACHINE OPERATOR-C) Mother Hypertension Grandfather Hypertension Grandmother Hypertension Father Cancer Surgical History History of tonsillectomy History of carpal tunnel release Social History Smoking Status: Former smoker how long ago did patient quit smokin week ago alcohol intake: current alcohol intake frequency: holidays/special occasions only substance use type: does not use caffeine: No ROS Constitutional Constitutional: Denies chills, fatigue, fever(s) or malaise Eyes Eyes: Denies blurry vision ENT HEENT: Denies headache(s) or nasal discharge Cardiovascular Cardiovascular: Reports palpitations and rapid heart rate; Denies chest pain, dyspnea on exertion or syncope Respiratory/Chest Respiratory/Chest: Denies cough, shortness of breath at rest or shortness of breath with exertion Gastrointestinal Gastrointestinal: Denies constipation, diarrhea, nausea or vomiting Genitourinary Genitourinary: Denies dysuria Neurologic Neurologic: Denies focal weakness, numbness or tremor(s) Psychiatric Psychiatric: Denies anxiety or depression Vital Signs Vital Signs Vital Signs: 01/09/24 06:03 01/09/24 06:19 01/09/24 06:34 Temperature 98.1 F Temperature Source Oral Pulse Rate 114 H 90 Respiratory Rate 16 16 Respiratory Effort Normal Blood Pressure 146/95 H 119/66 Blood Pressure Mean 112 83 Pulse Ox 95 97 Oxygen Delivery Method Room Air Room Air Weight Weight: 153 lb 10.595 oz Body Mass Index (BMI) 28.0 Physical Exam Narrative General: Alert, Oriented x3, Cooperative, No apparent distress HEENT: Atraumatic, PERRLA, EOMI, Normocephalic Oral: Moist Mucosa Neck: Supple, No JVD Lungs: Diminished, Normal air movement, No rhonchi, No wheeze, No rales Cardiovascular: Bradycardic, normal rhythm, Normal S1, Normal S2, No murmurs Abdomen: Soft, Non Tender, Non-Distended, No Hepato-splenomegaly Extremities: No edema, Capillary Refill Less than 3 Seconds Skin: No rashes, No breakdown Musculoskeletal: No Tenderness to Palpation of Joints or Extremities Neurological: No focal neurological deficits, Motor Exam 5/5 strength throughout, Sensory exam intact to light touch and pain Psych/Mental Status: Normal Affect, Appropriate Results Lab / Micro Data 01/09/24 06:30 01/09/24 06:30 Labs: Laboratory Results - last 24 hr 01/09/24 06:30: WBC 8.5, RBC 4.98, Hgb 15.1 H, Hct 44.2, MCV 88.8, MCH 30.3, MCHC 34.2, RDW Std Deviation 42.8, RDW Coeff of Angie 13.2, Plt Count 250, MPV 9.8, Immature Gran % (Auto) 0.500, Neut % (Auto) 71.9 H, Lymph % (Auto) 19.5, [place] % (Auto) 5.3, Eos % (Auto) 2.1, Baso % (Auto) 0.7, Absolute Neuts (auto) 6.1, Absolute Lymphs (auto) 1.66, Nucleated RBC % 0, Sodium 142, Potassium 3.6, Chloride 110 H, Carbon Dioxide 23.0, Anion Gap 9, BUN 17, Creatinine 0.93, Estim Creat Clear Calc 39.72, Est GFR (MDRD) Af Amer 73, Est GFR (MDRD) Non-Af 60, BUN/Creatinine Ratio 18.2, Glucose 133 H, Calcium 9.1, Troponin I High Sens 16 Rhythm Strip Rhythm Strip: A-fib Rate: 120 Ectopy: None Assessment & Plan Assessment/Plan (1) Atrial fibrillation with RVR: PLAN: Plan 1. Paroxysmal A-fib with RVR/chronic diastolic CHF/essential HTN/HLD ? Recently presented with CHF and A-fib with RVR and had her metoprolol increased to 50 mg p.o. twice daily ? That she presented to cardiology was found to be bradycardic to 46 and her metoprolol was decreased to 25 mg p.o. twice daily ? Continue with amiodarone ? Will consult cardiology, she may have a component of tachybradycardia syndrome ? She had an echo on 12/28/2023 with an EF of 50% with stage III diastolic dysfunction ? Continue with her Lasix as well as Norvasc and losartan ? Continue with Eliquis ? Continue with statin 2. Anxiety/depression ? Stable ? Continue with Effexor DVT: Eliquis 75 minutes was spent on direct patient care, including documentation as well as chart review and collaboration with colleagues Charges/Coding Visit Charges Inpatient E&M: 85291 Init Hosp L3
[2024-01-09] MEDS: Furosemide 40 MG Tablet PO (10:58)
[2024-01-09] MEDS: APIXABAN 5 MG TABLET PO (10:58)
[2024-01-09] MEDS: Losartan Potassium 100 MG Tablet PO (10:58)
[2024-01-09] MEDS: Metoprolol Tartrate 25 MG Tablet PO (10:58)
[2024-01-09] MEDS: Amiodarone 200 MG Tablet PO ×2 (10:58→21:32)
[2024-01-09] MEDS: Potassium Chloride Oral Tablet 20 MEQ PO (10:58)
[2024-01-09] MEDS: amLODIPine 5 MG Tablet PO (10:59)
--- NOTE | 2024-01-09 13:07 | EKG12_ITS ---
Test Reason : Blood Pressure : / mmHG Vent. Rate : 048 BPM Atrial Rate : 048 BPM P-R Int : 174 ms QRS Dur : 132 ms QT Int : 528 ms P-R-T Axes : 056 -21 157 degrees QTc Int : 471 ms Sinus bradycardia Left bundle branch block Abnormal ECG When compared with ECG of 09-JAN-2024 06:19, MANUAL COMPARISON REQUIRED, DATA IS UNCONFIRMED Confirmed by KINGSTON SHETH, MARY ([id number]), science editor SOURAV CARPENTER ([id number]) on 01/11/2024 9:26:55 AM Referred By: AMARILYS Confirmed By:MARY ONOFRE MD
--- NOTE | 2024-01-09 18:12 | PCM.CONS.C ---
Assessment & Plan Assessment/Plan (1) Atrial fibrillation with RVR: PLAN: It appears the patient was just started on amiodarone. Her metoprolol has been decreased. We will continue to watch her on telemetry overnight. I explained to the patient that we will try to adjust her medications to see if we can control her A-fib with RVR and at the same time not make her too bradycardic. Explained to the patient that if this becomes a challenge then she may end up needing a pacemaker for tachybradycardia syndrome. At this time continue amiodarone and metoprolol at current doses. Will be reasonable to hold her Eliquis for now till we figure out if she will end up needing a pacemaker during this admission. (2) Bradycardia: HPI Consult Data Date of Consult: 01/09/24 HPI Narrative Reason for Consultation: A-fib with RVR HPI Narrative: NATALEE ARAIZA, is a 88 F who presents with A-fib with RVR. The RVR was also associated with shortness of breath. Patient has been having paroxysmal A-fib on and off for the past couple of weeks. She has been in the hospital for this as well. She was seen in the office on 01/04/2024 and was bradycardic at that time and her metoprolol was decreased. She was not on amiodarone per that office note. Looks like amiodarone was started since then. Patient was found to be in A-fib with RVR in the ER and was admitted to the PCU. She has converted to sinus bradycardia. Review of systems: All systems reviewed. All else is negative except that in HPI [facility] Medical History Anxiety and depression Smoker Sleep apnea HTN (hypertension) Afib Home Medications ?Medication ?Instructions ?Recorded ?Last Taken ?Type amlodipine 5 mg tablet 5 mg PO DAILY blood pressure 12/28/23 01/08/24 History losartan 100 mg tablet 100 mg PO DAILY blood pressure 12/28/23 01/08/24 History simvastatin 20 mg tablet 20 mg PO QHS cholesterol 12/28/23 01/08/24 History venlafaxine 75 mg capsule,extended 75 mg PO QHS depression 12/28/23 01/08/24 History release 24 hr apixaban 5 mg tablet (Eliquis) 5 mg PO BID #120 tabs 12/30/23 01/08/24 Rx furosemide 40 mg tablet (Lasix) 40 mg PO DAILY #60 tabs 12/30/23 01/08/24 Rx potassium chloride 20 mEq 20 meq PO DAILY #30 tabs 12/30/23 01/08/24 Rx tablet,extended release(part/cryst) amiodarone 200 mg tablet 200 mg PO .COMPLEX #35 tabs 01/06/24 01/08/24 Rx metoprolol tartrate 25 mg tablet 25 mg PO BID 01/06/24 01/08/24 History Allergy/AdvReac Type Severity Reaction Status Date / Time Sulfa (Sulfonamide Allergy Mild Rash Verified 01/04/24 10:14 Antibiotics) Family History (Reviewed 01/04/24 @ 11:22 by John Pruett INSOLE TAPE STITCHER [employer], INSOLE TAPE STITCHER [employer]-C) Mother Hypertension Grandfather Hypertension Grandmother Hypertension Father Cancer Surgical History History of tonsillectomy History of carpal tunnel release Social History Smoking Status: Former smoker how long ago did patient quit smokin week ago alcohol intake: current alcohol intake frequency: holidays/special occasions only substance use type: does not use caffeine: No Physical Exam Const alert HEENT normocephalic Resp normal respiratory effort Cardio regular rate Skin no rashes or lesions noted Risk Stratification Risk Stratification Applicable: No Charges/Coding Visit Charges Inpatient E&M: 52393 Init Hosp L2 Objective Data Vital Signs: Vital Signs Temp Pulse Resp BP Pulse Ox O2 Del Method 97.3 F L 51 L 16 126/79 H 97 Room Air 01/09/24 17:00 01/09/24 17:00 01/09/24 17:00 01/09/24 17:00 01/09/24 17:00 01/09/24 17:00 Oxygen Delivery Method Room Air Weight: 153 lb 10.595 oz Body Mass Index (BMI) 28.0 Intake & Output: Intake and Output for Last 24 Hours 01/07/24 01/08/24 01/09/24 23:59 23:59 23:59 Intake Total 953.33 / 953.33 Balance 953.33 / 953.33 Lab / Micro Data 01/09/24 06:30 01/09/24 06:30 Labs: Laboratory Results - last 24 hr 01/09/24 06:30: WBC 8.5, RBC 4.98, Hgb 15.1 H, Hct 44.2, MCV 88.8, MCH 30.3, MCHC 34.2, RDW Std Deviation 42.8, RDW Coeff of Angie 13.2, Plt Count 250, MPV 9.8, Immature Gran % (Auto) 0.500, Neut % (Auto) 71.9 H, Lymph % (Auto) 19.5, [place] % (Auto) 5.3, Eos % (Auto) 2.1, Baso % (Auto) 0.7, Absolute Neuts (auto) 6.1, Absolute Lymphs (auto) 1.66, Nucleated RBC % 0, Sodium 142, Potassium 3.6, Chloride 110 H, Carbon Dioxide 23.0, Anion Gap 9, BUN 17, Creatinine 0.93, Estim Creat Clear Calc 39.72, Est GFR (MDRD) Af Amer 73, Est GFR (MDRD) Non-Af 60, BUN/Creatinine Ratio 18.2, Glucose 133 H, Calcium 9.1, Troponin I High Sens 16 Rhythm Strip Rhythm Strip: A-fib Rate: 120 Ectopy: None Cardiology Labs/Tests 01/09/24 06:30: WBC 8.5, RBC 4.98, Hgb 15.1 H, Hct 44.2, MCV 88.8, MCH 30.3, MCHC 34.2, Plt Count 250, MPV 9.8, Immature Gran % (Auto) 0.500, Neut % (Auto) 71.9 H, Lymph % (Auto) 19.5, [place] % (Auto) 5.3, Eos % (Auto) 2.1, Baso % (Auto) 0.7, Absolute Neuts (auto) 6.1, Nucleated RBC % 0, Sodium 142, Potassium 3.6, Chloride 110 H, Carbon Dioxide 23.0, Anion Gap 9, BUN 17, Creatinine 0.93, Est GFR (MDRD) Af Amer 73, Est GFR (MDRD) Non-Af 60, BUN/Creatinine Ratio 18.2, Glucose 133 H, Calcium 9.1 Rhythm: EKG: ECHO: Stress Test: Cardiac Cath: PCI: CT Surgery: Holter monitor: EPS: PPM: CXR: Chest CT Scan: Radiography Diagnostic Testing: Radiology Impression Chest X-Ray 01/09/24 07:40 IMPRESSION: No radiographic evidence of acute cardiopulmonary disease. Electronically Signed: Hamida Quezada MD at 8:16 EDT ,
[2024-01-09] MEDS: Venlafaxine XR 75 MG Capsule PO (21:32)
[2024-01-09] MEDS: Atorvastatin Calcium 10 MG Tablet PO (21:32)
[2024-01-10] VITALS (7 sets, daily range): BP systolic 122–160; BP diastolic 64–82; PULSE 50–122; RESP 12–16; TEMP 36.3–36.9; O2SAT 94–99
--- NOTE | 2024-01-10 08:14 | PCM.PN.CARD ---
Subjective Subjective Patient seen and evaluated. Appears to be rather anxious at this time. Objective Data Vital Signs: Vital Signs Temp Pulse Resp BP Pulse Ox O2 Del Method 97.4 F L 50 L 16 129/75 H 99 Room Air 01/10/24 02:45 01/10/24 02:45 01/10/24 02:45 01/10/24 02:45 01/10/24 02:45 01/10/24 02:45 Oxygen Delivery Method Room Air Weight: 153 lb 10.595 oz Body Mass Index (BMI) 28.0 Intake & Output: Intake and Output for Last 24 Hours 01/08/24 01/09/24 01/10/24 23:59 23:59 23:59 Intake Total 1203.33 / 1203.33 100 / 100 Output Total 0 / 0 0 / 0 Balance 1203.33 / 1203.33 100 / 100 Lab / Micro Data 01/09/24 06:30 01/09/24 06:30 Rhythm Strip Rhythm Strip: A-fib Rate: 120 Ectopy: None Cardiology Labs/Tests Rhythm: EKG: ECHO: Stress Test: Cardiac Cath: PCI: CT Surgery: Holter monitor: EPS: PPM: CXR: Chest CT Scan: Radiography Diagnostic Testing: Radiology Impression Chest X-Ray 01/09/24 07:40 IMPRESSION: No radiographic evidence of acute cardiopulmonary disease. Electronically Signed: Hamida Quezada MD at 8:16 EDT , Physical Exam Const alert, oriented x3 and no apparent distress General Appearance: cooperative HEENT hearing grossly normal bilaterally Head and Scalp: atraumatic Eyes EOMs intact bilaterally Neck General: normal visual inspection Chest inspection of chest normal and palpation of chest normal Resp normal respiratory effort Auscultation: clear to auscultation bilaterally Cardio regular rate, regular rhythm, S1 normal heart sound and S2 normal heart sound Jugular Venous Distention: JVD GI normal to inspection, nondistended, normoactive bowel sounds Extremity normal capillary refill and no pedal edema Peripheral Pulses: Yes pulses 2+ throughout and femoral pulses present Skin no rashes or lesions noted Neuro oriented x3 and CN's II-XII intact bilaterally Psych Appearance: grossly normal and appropriate Assessment & Plan Assessment/Plan (1) Paroxysmal atrial fibrillation: PLAN: The patient appears to have paroxysmal atrial fibrillation. She is in sinus rhythm at this time on amiodarone, beta-harry, and Eliquis. My recommendation be to continue 200 mg of amiodarone daily 25 mg twice a day of the beta-harry. She does have an Apple Watch and she has been urged to continue monitoring herself for this and call our office. At this time I do not think that we need to change her medications too much or pursue other investigative approaches. I have not seen any pauses to warrant permanent pacemaker implantation at this time. (2) HTN (hypertension), benign: PLAN: Her blood pressure is under good control this morning. She does have some anxiety and this tends to elevate her blood pressure. She is currently on amlodipine, losartan, and beta-harry. I would recommend continuing this. If she remains quite stable in the next few hours she can be discharged for outpatient follow-up. Thank you for allowing me to participate in the care of your patient. Please don't hesitate to call if any issues arise.
--- NOTE | 2024-01-10 08:17 | NURSING ---
Patient noted to be anxious this AM upon rounding, patient concerned about going home without adjustment to Venlafaxine.. MD notified and aware.
[2024-01-10] MEDS: amLODIPine 5 MG Tablet PO (10:05)
[2024-01-10] MEDS: Amiodarone 200 MG Tablet PO (10:05)
[2024-01-10] MEDS: Potassium Chloride Oral Tablet 20 MEQ PO (10:06)
[2024-01-10] MEDS: Furosemide 40 MG Tablet PO (10:06)
[2024-01-10] MEDS: Losartan Potassium 100 MG Tablet PO (10:06)
--- NOTE | 2024-01-10 10:36 | CASEMGMT ---
Met with patient to complete MESA form. MESA form explained to patient who voiced understanding and signed form. Original form placed in pt?s chart and copy provided to patient. Shelly Mckeon, Discharge Planning Asst
--- NOTE | 2024-01-10 12:32 | DS.PCM_ITS ---
Providers Date of Admission: 01/09/24 Primary Care Physician: Dr. Carl Steen MD Consultations 01/09/24 08:42 Consult: Cardiology Routine Consulting Provider: Olga Lidia Blackmon Reason for Consult: afib EMERGENT Consult: No MD Notified: Yes Date Notified: 01/09/24 Time Notified: 07:41 Method of Notification: ED Physician Initiated Reason For Visit: AFIB Diagnosis Discharge Diagnosis (1) Paroxysmal atrial fibrillation: Status: Acute Code(s): I48.0 - Paroxysmal atrial fibrillation (2) HTN (hypertension), benign: Status: Acute Code(s): I10 - Essential (primary) hypertension Medications at Discharge Home Medications amlodipine 5 mg tablet 5 mg PO DAILY blood pressure 12/28/23 losartan 100 mg tablet 100 mg PO DAILY blood pressure 12/28/23 simvastatin 20 mg tablet 20 mg PO QHS cholesterol 12/28/23 venlafaxine 75 mg capsule,extended release 24 hr 75 mg PO QHS depression 12/28/23 apixaban 5 mg tablet (Eliquis) 5 mg PO BID #120 tabs 12/30/23 furosemide 40 mg tablet (Lasix) 40 mg PO DAILY #60 tabs 12/30/23 potassium chloride 20 mEq tablet,extended release(part/cryst) 20 meq PO DAILY #30 tabs 12/30/23 amiodarone 200 mg tablet 200 mg PO .COMPLEX #35 tabs 01/06/24 metoprolol tartrate 25 mg tablet 25 mg PO BID 01/06/24 Hospital Course Operations None Procedures None Summary of Care Provided Minutes Spent on Discharge: 56 Hospital Course: Per HPI: NATALEE ARAIZA, is a 88 F who presents with palpitations which she woke up this morning around 5 AM and noticed that her heart rate was 146. She has a history of A-fib with RVR and has been having medication changes over the last couple weeks. She was also having side effect issues with significant bradycardia so she had to be lowered to metoprolol 25 mg p.o. twice daily which had been increased 2 weeks prior. She is also been started on amiodarone. She continues to have issues with A-fib and periodic RVR and so she presents to the hospital with continued symptoms. She is given 20 mg of Cardizem x 1 and heart rate improved to the 90s. Cardiology was consulted and recommended observation for evaluation for possible pacemaker or Tikosyn initiation. Hospital Course: 1. Paroxysmal A-fib with RVR/chronic diastolic CHF/essential HTN/HLD?8 8-year-old female presented to the hospital because of A-fib with RVR that she noticed at around 5 AM. She does have a history of anxiety and did not take her morning meds prior to coming to the hospital to see if that would relieve symptoms. She is only been on amiodarone for less than a week and is still taking 200 mg p.o. twice daily, cardiology was consulted and felt that we can continue with her current medications because she went back into sinus rhythm and was actually sinus bradycardia on discharge though without any symptoms, no lightheadedness or dizziness. She will need to follow-up with cardiology as an outpatient I also recommend follow-up with her PCP in 3 to 5 days. I discussed with her the plan for discharge today she expressed understanding of the risk benefits of going home and would like to go home today. I did not make any changes to her home medications during her hospitalization. 2. Anxiety/depression?she does have a severe component of anxiety I believe more so than depression and I do recommend following up with therapy as an outpatient to help with coping mechanisms of possible. Physical Exam Narrative General: Alert, Oriented x3, Cooperative, No apparent distress HEENT: Atraumatic, PERRLA, EOMI, Normocephalic Oral: Moist Mucosa Neck: Supple, No JVD Lungs: Diminished, Normal air movement, No rhonchi, No wheeze, No rales Cardiovascular: Bradycardic, normal rhythm, Normal S1, Normal S2, No murmurs Abdomen: Soft, Non Tender, Non-Distended, No Hepato-splenomegaly Extremities: No edema, Capillary Refill Less than 3 Seconds Skin: No rashes, No breakdown Musculoskeletal: No Tenderness to Palpation of Joints or Extremities Neurological: No focal neurological deficits, Motor Exam 5/5 strength throughout, Sensory exam intact to light touch and pain Psych/Mental Status: Normal Affect, Appropriate Weight / BMI Weight Weight: 153 lb 10.595 oz Body Mass Index (BMI) 28.0 ABG / Lab / Microbiology Data 01/09/24 06:30 01/09/24 06:30 D/C Instructions Discharge Diet: Low fat / Low cholesterol Call your doctor if you observe: Fever of 101 or Higher, Shortness of breath, Dizziness, Fainting spells, Swelling in the ankles, Chest pain and Increased palpitations (irregular heartbeat) Meaningful Use Info Meaningful Use Meaningful Use Diagnoses (Choose all that apply): None applicable Ischemic Stroke Statin Dosing Therapy Reference: STATIN DOSE THERAPY REFERENCE: * Patients > 75 years receive moderate or high dose statin therapy. * Patients 75 years or YOUNGER should receive HIGH intensity statin dose unless contraindicated. You will be required to document reason for non-treatment if statin daily dose does not meet guidelines. HIGH DOSE STATIN THERAPY DAILY Atorvastatin > than or = to 40 mg Rosuvastatin > than or = to 20 mg Amlodipine + Atorvastatin > than or = to 2.5/40 mg Ezetimibe + Simvastatin 10/80 mg Simvastatin 80mg Discharge Plan Admission Admit Date/Time: 01/09/24 07:39 Attending Provider: Philip Whitten Primary Care Provider: Carl Steen Consulting Providers: Olga Lidia Blackmon Discharge Orders/Prescriptions Prescriptions: Continued venlafaxine 75 mg capsule,extended release 24hr 75 mg PO QHS amlodipine 5 mg tablet 5 mg PO DAILY simvastatin 20 mg tablet 20 mg PO QHS losartan 100 mg tablet 100 mg PO DAILY potassium chloride 20 mEq Tablet,Er Particles/Crystals 20 meq PO DAILY Qty: 30 0RF Eliquis 5 mg Tablet 5 mg PO BID Qty: 120 0RF furosemide [Lasix] 40 mg tablet 40 mg PO DAILY Qty: 60 0RF metoprolol tartrate 25 mg tablet 25 mg PO BID amiodarone 200 mg tablet 200 mg PO .COMPLEX Qty: 35 11RF Patient Comments: 200MG TWICE DAILY ON 01/05-01/12, THEN ON 01/13 200MG ONCE DAILY Rx Instructions: 200 mg orally twice day X 1 week then once a day; Referrals / Follow Up: Carl Steen MD [Primary Care Provider] - Within 1 Week Disposition Disposition (needs filled in before D/C Order can be placed): Home, Self Care Charges/Coding Visit Charges Inpatient E&M: 03602 Disch Hosp >30min
--- NOTE | 2024-01-10 13:03 | PHA.DC.MR.R ---
Pharmacy [facility] Reconciliation Pharmacy Service has performed discharge medication reconciliation for this patient. No new medications, medications reviewed. The patient's discharge medication list was reviewed for discrepancies and discrepancies were resolved. Medications at Discharge Home Medications amlodipine 5 mg tablet 5 mg PO DAILY blood pressure 12/28/23 losartan 100 mg tablet 100 mg PO DAILY blood pressure 12/28/23 simvastatin 20 mg tablet 20 mg PO QHS cholesterol 12/28/23 venlafaxine 75 mg capsule,extended release 24 hr 75 mg PO QHS depression 12/28/23 apixaban 5 mg tablet (Eliquis) 5 mg PO BID #120 tabs 12/30/23 furosemide 40 mg tablet (Lasix) 40 mg PO DAILY #60 tabs 12/30/23 potassium chloride 20 mEq tablet,extended release(part/cryst) 20 meq PO DAILY #30 tabs 12/30/23 amiodarone 200 mg tablet 200 mg PO .COMPLEX #35 tabs 01/06/24 metoprolol tartrate 25 mg tablet 25 mg PO BID 01/06/24
--- NOTE | 2024-01-10 14:28 | CASEMGMT ---
JESUS VALLE note: Discharge order is in. JESUS CM to room. Pt resting in bed. Pt denies having any discharge needs/concerns. Pt has been up independently in room w/out difficulty. Pt states she has all her needed medications @ home. She has been taking Eliquis as prescribed. She received the 1st 30-day supply from [facility] retail pharmacy and free trial offer card was applied. She states she has not checked on cost of refills yet. JESUS VALLE placed call to [facility] pharmacy. Cost of refill will be $509.18. Call placed to [facility] @ [facility]. She was made aware. She states pt has an appt there on 01/20, she will place note on pt's chart, and they will talk w/pt about this cost and assist as needed. Pt made aware. Pt states her will be taking her home. She would like him present when dc instructions are reviewed. Nurse, Leo, made aware. Nellie BROWN RN, CM
[2024-01-10] MEDS: Metoprolol Tartrate 25 MG Tablet PO (14:52)
--- NOTE | 2024-01-10 15:08 | NURSING ---
Pt rhythm change MD notified and Cardiology notified. No other changes at this time. Gave PO morning lopressor that was originally held d/t bradycardia
--- NOTE | 2024-01-10 17:23 | CASEMGMT ---
ADVANCE DIRECTIVE VALIDATION Received notice for validation of advance directives. Not applicable to validate as patient answered no to having directives, and declined wanting to talk to someone or further information. -MIKE Jasso
--- NOTE | 2024-01-10 18:40 | NURSING ---
PER CARDIOLOGY, WOULD LIKE TO HAVE PATIENT D/C WITH ANXIETY MEDICATION D/T PERSISTENT ANXIETY. PATIENT TO NOT D/C W/O MEDICATION FOR ANXIETY.
--- NOTE | 2024-01-10 19:54 | NURSING ---
01/10/24@ 1000 and 1777, this nurse reviewed assessment and POC.
== END 2024-01-10 19:30 | disposition home or self-care (01) ==
LOC: ED 07:43 → PCU 07:50
PROVIDERS: Admitting Provider Family Medicine; Emergency Provider Emergency Medicine; PCP Family Medicine; Visit Provider Family Medicine
DX: I48.0 Paroxysmal atrial fibrillation (principal); I11.0 Hypertensive heart disease with heart failure; I50.32 Chronic diastolic (congestive) heart failure; Z79.01 Long term (current) use of anticoagulants; Z87.891 Personal history of nicotine dependence; R00.1 Bradycardia, unspecified; R06.00 Dyspnea, unspecified; Z79.899 Other long term (current) drug therapy; F41.9 Anxiety disorder, unspecified; F32.A Depression, unspecified; E78.5 Hyperlipidemia, unspecified
CPT/HCPCS: 71045; 80048; 84484; 85025; 93005; 96361; 96374; 96375; 99221; 99285; J7040; A4216; G0378; J2405

== ENCOUNTER → 2024-02-02 | Outpatient (CLI) | payer MEDICARE, OTHER, SELFPAY | END | disposition home or self-care (01) | PROVIDERS: PCP Family Medicine; Referring Provider Nurse Practitioner Gerontology; Visit Provider Nurse Practitioner Gerontology | DX: I48.0 Paroxysmal atrial fibrillation (principal) | CPT/HCPCS: 93225; 93226 ==

== ENCOUNTER → 2025-02-20 | Outpatient (CLI) | payer MEDICARE, OTHER, SELFPAY ==
[2025-02-20 12:12] LABS: Anion Gap 12 (5-15); BUN 15 mg/dL (4-19); BUN/Creat Ratio 14.8 RATIO (10-20); Calcium,Total 9.2 mg/dL (7.6-11.0); Carbon Dioxide 23.1 mmol/L (21.0-32.0); Chloride 108 mmol/L (98-108); Glucose 140 mg/dL (70-99); Potassium 4.5 mmol/L (3.3-5.1)
== END | disposition home or self-care (01) ==
LOC: LAB 11:06
PROVIDERS: PCP Family Medicine; Referring Provider Internal Medicine Cardiovascular Disease; Visit Provider Internal Medicine Cardiovascular Disease
DX: I48.0 Paroxysmal atrial fibrillation (principal); Z79.899 Other long term (current) drug therapy
CPT/HCPCS: 36415; 80048; 84443

== ENCOUNTER → 2025-04-10 | Outpatient (CLI) | payer MEDICARE, OTHER, SELFPAY ==
--- NOTE | 2025-04-10 09:52 | RAD_ITS ---
PROCEDURE: CHEST PA AND LATERAL 04/10/2025 REASON FOR EXAM: SHORTNESS OF BREATH TECHNIQUE: Procedure Code: RADCXR Modality: DX Procedure: CHEST PA AND LATERAL COMPARISON: None FINDINGS: Bibasilar subsegmental atelectasis. Mild pulmonary vascular congestion. Underlying chronic lung disease not excluded. No focal consolidation. No pleural effusion or pneumothorax. Cardiac silhouette is within normal limits. No acute fractures. RAD/Chest PA and Lateral IMPRESSION: Bibasilar subsegmental atelectasis. Mild pulmonary vascular congestion. Underl liliana chronic lung disease not excluded. No focal consolidation. Reading Location: [id number]
[2025-04-10 10:03] LABS: Hematocrit 39.3 % (37-47); Hemoglobin 13.2 g/dL (12.0-15.0); Immature Granulocytes Count 0.060 X10^3/uL (0.0-0.0); Mean Corp Hgb Conc 33.6 g/dL (32-36); Mean Corpuscular Volume 93.6 fL (81-99); Mean Platelet Vol. 9.4 fl (6.2-12.0); NRBC Flagged by Analyzer 0 % (0-5); Platelet Count 258 K/mm3 (150-450); RBC Distribution Width CV 14.5 % (11.6-14.6); RBC Distribution Width SD 49.5 fl (35.1-43.9); Red Blood Count 4.20 M/mm3 (4.2-5.4); White Blood Count 9.5 K/mm3 (4.4-11.0)
[2025-04-10 10:35] LABS: Anion Gap 13 (5-15); BUN 16 mg/dL (4-19); BUN/Creat Ratio 15.0 RATIO (10-20); Calcium,Total 9.1 mg/dL (7.6-11.0); Carbon Dioxide 22.5 mmol/L (21.0-32.0); Chloride 106 mmol/L (98-108); Glucose 117 mg/dL (70-99); Potassium 4.0 mmol/L (3.3-5.1); Pro- Brain NATRIURETIC PEPTIDE 5252 pg/mL (<=1800)
[2025-04-10 10:42] LABS: D-Dimer Quantitative (DVT/PE) 0.48 FEU/ug/m (0.27-0.49)
== END | disposition home or self-care (01) ==
PROVIDERS: PCP Family Medicine; Referring Provider Student in an Organized Health Care Education/Training Program; Visit Provider Student in an Organized Health Care Education/Training Program
DX: I10 Essential (primary) hypertension (principal); R06.02 Shortness of breath; R60.0 Localized edema
CPT/HCPCS: 36415; 71046; 80048; 83880; 85025; 85379

== ENCOUNTER → 2025-04-24 | Outpatient (CLI) | payer MEDICARE, OTHER, SELFPAY ==
[2025-04-24 12:32] LABS: Anion Gap 15 (5-15); BUN 23 mg/dL (4-19); BUN/Creat Ratio 20.5 RATIO (10-20); Calcium,Total 9.4 mg/dL (7.6-11.0); Carbon Dioxide 19.9 mmol/L (21.0-32.0); Chloride 105 mmol/L (98-108); Glucose 108 mg/dL (70-99); Potassium 4.4 mmol/L (3.3-5.1)
--- OUTSIDE RECORDS SUMMARY | 2025-04-25 09:25 | XMS RPT_ITS ---
Author Name Auto Generated Organization [facility] Care Team Providers Care Etl Analyst Developer Name Role Phone CARL RENDON Referring Unavailable CARL RENDON Primary Care Unavailable JULIETA, CARL A Referring Unavailable JULIETA, CARL A Primary Care Unavailable CARL RENDON A Attending Unavailable JULIETA, CARL A Primary Care Unavailable DIONNA URIARTE Attending Unavailable JULIETA, CARL Pelaez Primary Care Unavailable JULIETA, CARL A Primary Care Unavailable JULIETA, CARL A Primary Care Unavailable OMARI NAVAS Attending Unavailable CARL RENDON Attending Unavailable JULIETA, CARL A Primary Care Unavailable CARL RENDON Attending Unavailable JULIETA, CARL A Primary Care Unavailable DIONNA URIARTE Referring Unavailable JESUS RENDONREY Benigno Primary Care Unavailable DIONNA URIARTE Attending Unavailable JULIETA, CARL Pelaez Primary Care Unavailable ALEJANDRA CAMACHO Attending Unavailable JULIETA, CARL A Primary Care Unavailable DIONNA URIARTE Attending Unavailable JULIETA, CARL A Primary Care Unavailable JULIETA, CARL A Referring Unavailable JULIETA, CARL A Primary Care Unavailable PROBLEMS DATE TYPE CONDITION / CODE ATTENDING STATUS [facility] 04/25/2025 Active Acute upper resp iratory infection / J06.9(ICD-10) DIONNA URIARTE Active [facility] 04/25/2025 Active Atrial fibrillat ion, unspecified type (HCC) / I48.91(ICD-10) DIONNA URIARTE Active [facility] 04/17/2025 Active Leg swelling / M79.89(ICD-10) NA Active [facility] 04/17/2025 Active SOB (shortness o f breath) / R06.02(ICD-10) NA Active [facility] 04/17/2025 Active Pain of left steven f / M79.662(ICD-10) NA Active [facility] 04/16/2025 Active On amiodarone th erapy / Z79.899(ICD-10) NA Active [facility] 01/08/2025 Active Essential hypert ension, benign / I10(ICD-10) DIONNA URIARTE Active [facility] 01/05/2024 Active Paroxysmal atria l fibrillation (HCC) / I48.0(ICD-10) DIONNA URIARTE Active [facility] 01/30/2025 Active Common wart / B07.8(ICD-10) NA Active [facility] 02/05/2025 Active Itchy scalp / L29.9(ICD-10) OMARI NAVAS Active [facility] 02/05/2025 Active Rash / R21(ICD-10) OMARI NAVAS Activ e [facility] 01/08/2025 Active 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 / D48.5(ICD-10) CARL RENDON Active [facility] 01/08/2025 Active 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 / H40.001(ICD-10) CARL RENDON Active [facility] 01/08/2025 Active Advance directiv e discussed with patient / Z71.89(ICD-10) CARL RENDON Active [facility] 01/08/2025 Active Chronic systolic CHF (congestive heart failure) (HCC) / I50.22(ICD-10) CARL RENDON Active [facility] 01/08/2025 Active Medicare annual wellness visit, subsequent / Z00.00(ICD-10) CARL RENDON Active [facility] 02/01/2024 Active LIZZY (generalized anxiety disorder) / F41.1(ICD-10) CARL RENDON Active [facility] 12/27/2023 Active Primary osteoart hritis involving multiple joints / M15.0(ICD-10) CARL RENDON Active [facility] 04/28/2021 Active Medication manag ement / Z79.899(ICD-10) CARL RENDON Active [facility] 04/28/2021 Active Smoker / F17.200(ICD-10) MEMO RENDON Active [facility] 04/28/2021 Active Hyperlipidemia, mixed / E78.2(ICD-10) JULIETA CARL A Active [facility] 04/28/2021 Active Adjustment disor liz with depressed mood / F43.21(ICD-10) CARL RENDON Active [facility] 01/08/2025 Active Excessive ear wa x, left / H61.22(ICD-10) CARL RENDON Active [facility] 01/08/2025 Active Screening for de pression / Z13.31(ICD-10) CARL RENDON Active [facility] 05/01/2024 Active COVID-19 / U07.1(ICD-10) JOSEFINA CAMACHO Active [facility] PROCEDURES No Procedure Records Found RESULTS PROGRESS Observed: 04/25/2025 9:46 AM Status: COMPLETED Source: [facility] HNO ID: [id number] Author: DIONNA URIARTE PA-C Service: ? Author Type: Physician Rib Trim Separator Type: Progress Notes Filed: 04/25/2025 10:16 Note Text: Chief Complaint Patient presents with: Cough HPI Cheryl Abarca is a 89 year old female who presents here today for above concerns Cough and SOB: - Onset of cough and SOB last week. - Cough is productive with brown phlegm. - Lost voice on Wednesday; voice has returned to normal today. - Denies fever. - Concerned about symptoms worsening before an upcoming trip to [place] on Wednesday. Atrial Fibrillation: - Managed by cardio. recent vist just yesterday with medication adjustment. - Reports frequent episodes of palpitations with heart rate fluctuating between 47-160 bpm. - Recent changes in medication regimen: - Furosemide switched to torsemide BID for 1 week and then once daily. - Metoprolol increased to 25mg BID. - Upcoming echocardiogram and sleep study scheduled. - Recent BMP ordered yesterday; next BMP scheduled in 2 weeks. Past medical history, appointments, medications, allergies reviewed. Previous Medical History PAST MEDICAL HISTORY Diagnosis Date Acute systolic CHF (congestive heart failure) (HCC) 01/04/2024 Echo 12/29/23. EF 50% Adjustment disorder with depressed mood 04/08/2005 Advance directive discussed with patient 12/15/2021 Discussed 11/2021 Carpal tunnel syndrome, bilateral 03/14/2020 Cervical radiculopathy 03/14/2020 Chronic bronchitis (HCC) 05/31/2014 Chronic systolic CHF (congestive heart failure) (HCC) 01/04/2024 Echo 12/29/23. EF 50% Common wart 01/30/2025 Left upper arm: excised 01/2025. DDD (degenerative disc disease), cervical 03/14/2020 Diverticulitis of colon (without mention of hemorrhage)(562.11) Essential hypertension, benign 01/06/2008 LIZZY (generalized anxiety disorder) 02/01/2024 [facility] for counseling. 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 PAST SURGICAL HISTORY OF Right 11/2024 right 2nd toe. PLC BREAST CLIP PERC Left breast TONSILLECTOMY PRIMARY/SECONDARY <AGE 14 Tonsillectomy Family History FAMILY HISTORY Problem Relation Age of Onset Prostate Cancer Father Psychiatry Mother Hypertension Mother Breast Cancer Maternal Grandmother Colon Cancer Maternal Grandfather Psychiatry Brother schizophrenic Arthritis Paternal Grandfather Rheumatoid Patient Allergies ALLERGIES Allergen Reactions Bactrim Ds [Sulfame* Rash Current Medications Current Outpatient Medications on File Prior to Visit Medication Sig torsemide (DEMADEX) 20 mg tablet Take 20 mg by mouth once daily. spironolactone (ALDACTONE) 25 mg tablet Take 1 tablet by mouth once daily. amiodarone (PACERONE) 200 mg tablet Take 1 tablet by mouth once daily. Per [facility]. metoprolol succinate ER (TOPROL XL) 25 mg 24 hr tablet Take 1 tablet by mouth once daily. [facility] (Patient taking differently: Take 25 mg by mouth two times a day. Per [facility]) busPIRone (BUSPAR) 7.5 mg tablet Take 2 tablets by mouth two times a day. venlafaxine ER (EFFEXOR XR) 150 mg 24 hr capsule Take 1 capsule by mouth once daily. latanoprost (XALATAN) 0.005 % ophthalmic solution 1 drop daily at bedtime. losartan (COZAAR) 100 mg tablet Take 1 tablet by mouth once daily. simvastatin (ZOCOR) 20 mg tablet Take 1 tablet by mouth daily at bedtime. calcium Carbonate 300 mg, 750mg, (TUMS) 300 mg (750 mg) chewable tablet Take 1 tablet by mouth two times a day. CHOLECALCIFEROL, VITAMIN D3, ORAL Take 2,000 Int'l Units/day by mouth once daily. apixaban (ELIQUIS) 5 mg tab(s) Take 5 mg by mouth two times a day. furosemide (LASIX) 40 mg tablet Take 40 mg by mouth once daily. (Patient not taking: Reported on 04/25/2025) No current facility-administered medications on file prior to visit. Social History SOCIAL HISTORY[1] Review of Symptoms REVIEW OF SYSTEMS Constitutional: (-) fever Ears/Nose/Mouth/Throat: (+) rhinorrhea Respiratory: (+) productive cough SEE HPI EXAM: BP 140/80 (BP Site: Left Arm, BP Position: Sitting, BP Cuff Size: Regular Adult) Pulse (!) 125 Temp 36.6 ?C (97.9 ?F) Resp 20 Wt 71.7 kg (158 lb) SpO2 97% BMI 27.99 kg/m? General Appearance: Well appearing, alert, in no acute distress, well-hydrated, well nourished.. Eyes: Anicteric sclera. Pupils are equally round and reactive to light. Extraocular movements are intact. . Ears: External ears normal, canals clear. Nose/Sinuses: Nares normal, septum midline, mucosa normal, no drainage or sinus tenderness. Oropharynx: Lips, mucosa, and tongue normal, teeth and gums normal, oropharynx normal. Neck: Supple, no adenopathy; thyroid symmetric, normal size, no bruits. Lungs: Lungs clear to auscultation. No wheezing, rhonchi, rales.. Heart: irregular rhythm with tachycardia. Health Maintenance List Influenza Vaccine(1) due on 03/26/2025 DTaP,Tdap,Td Vaccine(4 - Td or Tdap) due on 01/08/2026 Depression Screening due on 01/08/2026 Medicare Annual Wellness Visit due on 01/08/2026 Diabetes Screening due on 01/07/2028 Bone Density Screening Completed Advance Directive Discussion Completed RSV Vaccine Completed Shingrix Vaccine Completed Pneumococcal Vaccine: 50+ Completed Data reviewed N/a Assessment and Plan 1. Acute upper respiratory infection (J06.9) - Symptoms consistent with viral URI; no fever, improving voice, cough. - Provided education on expected course of viral illness and advised to monitor for worsening symptoms. - Prescribed antibiotic to be used only if symptoms worsen over the next 24-48 hours. - Prescribed cough suppressant; advised to avoid [id number] decongestants due to elevated heart rate/a-fib. - Advised that flu and COVID vaccines can be obtained, but will not provide immediate protection for upcoming travel. 2. Atrial fibrillation, unspecified type (HCC) (I48.91) - Ongoing management with metoprolol BID; recent increase in frequency of palpitations and variable heart rates (47-160 bpm). - Recent changes in diuretic therapy from furosemide to torsemide and increase on metoprolol. - BMP obtained yesterday; repeat BMP in 2 weeks to monitor for electrolyte disturbances and renal function due to diuretic changes. - Echocardiogram and sleep study planned per cardiology Discussed possible red flags and when to seek medical attention. Dionna Uriarte PA-C Recording using [employer] software for draft documentation of the visit was discussed with the patient/authorized service representative; all questions welcomed and answered. Patient/authorized service representative agreed to proceed [1] Social History Tobacco Use Smoking status: Former Current packs/day: 0.00 Types: Pipe, Cigarettes Start date: 01/07/2006 Quit date: 12/27/2023 Years since quittin.3 Smokeless tobacco: Never Tobacco comments: Used to smoke cigarettes. Vaping Use Vaping status: Never Used Substance Use Topics Alcohol use: Yes Comment: wine- 4-6 oz 5 times a week Drug use: No CNOV Observed: 04/25/2025 9:40 AM Status: COMPLETED Source: [facility] CHERYL ABARCA ([id number]) 1935 F Date Time Provider Department 04/25/25 9:40 AM [facility] During your visit today, we recorded the following information about you: Temperature Pulse Respiration Blood pressure 97.9 degrees 125/minute 20/minute 140/80 Weight 71.7 kg Dionna Uriarte PA-C 04/25/2025 10:16 AM Signed Chief Complaint Patient presents with: Cough HPI Cheryl Abarca is a 89 year old female who presents here today for above concerns Cough and SOB: - Onset of cough and SOB last week. - Cough is productive with brown phlegm. - Lost voice on Wednesday; voice has returned to normal today. - Denies fever. - Concerned about symptoms worsening before an upcoming trip to [place] on Wednesday. Atrial Fibrillation: - Managed by cardio. recent vist just yesterday with medication adjustment. - Reports frequent episodes of palpitations with heart rate fluctuating between 47-160 bpm. - Recent changes in medication regimen: - Furosemide switched to torsemide BID for 1 week and then once daily. - Metoprolol increased to 25mg BID. - Upcoming echocardiogram and sleep study scheduled. - Recent BMP ordered yesterday; next BMP scheduled in 2 weeks. Past medical history, appointments, medications, allergies reviewed. Previous Medical History PAST MEDICAL HISTORY Diagnosis Date Acute systolic CHF (congestive heart failure) (HCC) 01/04/2024 Echo 12/29/23. EF 50% Adjustment disorder with depressed mood 04/08/2005 Advance directive discussed with patient 12/15/2021 Discussed 11/2021 Carpal tunnel syndrome, bilateral 03/14/2020 Cervical radiculopathy 03/14/2020 Chronic bronchitis (HCC) 05/31/2014 Chronic systolic CHF (congestive heart failure) (HCC) 01/04/2024 Echo 12/29/23. EF 50% Common wart 01/30/2025 Left upper arm: excised 01/2025. DDD (degenerative disc disease), cervical 03/14/2020 Diverticulitis of colon (without mention of hemorrhage)(562.11) Essential hypertension, benign 01/06/2008 LIZZY (generalized anxiety disorder) 02/01/2024 [facility] for counseling. 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 PAST SURGICAL HISTORY OF Right 11/2024 right 2nd toe. PLC BREAST CLIP PERC Left breast TONSILLECTOMY PRIMARY/SECONDARY <AGE 14 Tonsillectomy Family History FAMILY HISTORY Problem Relation Age of Onset Prostate Cancer Father Psychiatry Mother Hypertension Mother Breast Cancer Maternal Grandmother Colon Cancer Maternal Grandfather Psychiatry Brother schizophrenic Arthritis Paternal Grandfather Rheumatoid Patient Allergies ALLERGIES Allergen Reactions Bactrim Ds [Sulfame* Rash Current Medications Current Outpatient Medications on File Prior to Visit Medication Sig torsemide (DEMADEX) 20 mg tablet Take 20 mg by mouth once daily. spironolactone (ALDACTONE) 25 mg tablet Take 1 tablet by mouth once daily. amiodarone (PACERONE) 200 mg tablet Take 1 tablet by mouth once daily. Per [facility]. metoprolol succinate ER (TOPROL XL) 25 mg 24 hr tablet Take 1 tablet by mouth once daily. [facility] (Patient taking differently: Take 25 mg by mouth two times a day. Per [facility]) busPIRone (BUSPAR) 7.5 mg tablet Take 2 tablets by mouth two times a day. venlafaxine ER (EFFEXOR XR) 150 mg 24 hr capsule Take 1 capsule by mouth once daily. latanoprost (XALATAN) 0.005 % ophthalmic solution 1 drop daily at bedtime. losartan (COZAAR) 100 mg tablet Take 1 tablet by mouth once daily. simvastatin (ZOCOR) 20 mg tablet Take 1 tablet by mouth daily at bedtime. calcium Carbonate 300 mg, 750mg, (TUMS) 300 mg (750 mg) chewable tablet Take 1 tablet by mouth two times a day. CHOLECALCIFEROL, VITAMIN D3, ORAL Take 2,000 Int'l Units/day by mouth once daily. apixaban (ELIQUIS) 5 mg tab(s) Take 5 mg by mouth two times a day. furosemide (LASIX) 40 mg tablet Take 40 mg by mouth once daily. (Patient not taking: Reported on 04/25/2025) No current facility-administered medications on file prior to visit. Social History SOCIAL HISTORY[1] Review of Symptoms REVIEW OF SYSTEMS Constitutional: (-) fever Ears/Nose/Mouth/Throat: (+) rhinorrhea Respiratory: (+) productive cough SEE HPI EXAM: BP 140/80 (BP Site: Left Arm, BP Position: Sitting, BP Cuff Size: Regular Adult) Pulse (!) 125 Temp 36.6 ?C (97.9 ?F) Resp 20 Wt 71.7 kg (158 lb) SpO2 97% BMI 27.99 kg/m? General Appearance: Well appearing, alert, in no acute distress, well-hydrated, well nourished.. Eyes: Anicteric sclera. Pupils are equally round and reactive to light. Extraocular movements are intact. . Ears: External ears normal, canals clear. Nose/Sinuses: Nares normal, septum midline, mucosa normal, no drainage or sinus tenderness. Oropharynx: Lips, mucosa, and tongue normal, teeth and gums normal, oropharynx normal. Neck: Supple, no adenopathy; thyroid symmetric, normal size, no bruits. Lungs: Lungs clear to auscultation. No wheezing, rhonchi, rales.. Heart: irregular rhythm with tachycardia. Health Maintenance List Influenza Vaccine(1) due on 03/26/2025 DTaP,Tdap,Td Vaccine(4 - Td or Tdap) due on 01/08/2026 Depression Screening due on 01/08/2026 Medicare Annual Wellness Visit due on 01/08/2026 Diabetes Screening due on 01/07/2028 Bone Density Screening Completed Advance Directive Discussion Completed RSV Vaccine Completed Shingrix Vaccine Completed Pneumococcal Vaccine: 50+ Completed Data reviewed N/a Assessment and Plan 1. Acute upper respiratory infection (J06.9) - Symptoms consistent with viral URI; no fever, improving voice, cough. - Provided education on expected course of viral illness and advised to monitor for worsening symptoms. - Prescribed antibiotic to be used only if symptoms worsen over the next 24-48 hours. - Prescribed cough suppressant; advised to avoid [id number] decongestants due to elevated heart rate/a-fib. - Advised that flu and COVID vaccines can be obtained, but will not provide immediate protection for upcoming travel. 2. Atrial fibrillation, unspecified type (HCC) (I48.91) - Ongoing management with metoprolol BID; recent increase in frequency of palpitations and variable heart rates (47-160 bpm). - Recent changes in diuretic therapy from furosemide to torsemide and increase on metoprolol. - BMP obtained yesterday; repeat BMP in 2 weeks to monitor for electrolyte disturbances and renal function due to diuretic changes. - Echocardiogram and sleep study planned per cardiology Discussed possible red flags and when to seek medical attention. Dionna Uriarte PA-C Recording using [employer] software for draft documentation of the visit was discussed with the patient/authorized service representative; all questions welcomed and answered. Patient/authorized service representative agreed to proceed [1] Social History Tobacco Use Smoking status: Former Current packs/day: 0.00 Types: Pipe, Cigarettes Start date: 01/07/2006 Quit date: 12/27/2023 Years since quittin.3 Smokeless tobacco: Never Tobacco comments: Used to smoke cigarettes. Vaping Use Vaping status: Never Used Substance Use Topics Alcohol use: Yes Comment: wine- 4-6 oz 5 times a week Drug use: No Dionna Uriarte PA-C 04/25/2025 9:57 AM Signed - Watch your cough and phlegm over the next 24-48 hours. If your symptoms worsen, start the antibiotic prescription already sent to [facility] - Do not begin the antibiotic today unless you notice worsening symptoms; if you feel worse tomorrow or during your trip, start it as directed. Allergies As of Date: 04/25/2025 Noted Allergy Reaction BACTRIM DS (SULFAMETHOXAZOLE-TRIM*01/04/2008 2 - Rash Date Reviewed: 04/25/2025 Reviewed by: Eulogio Kennedy LPN - Fully Assessed Reason for Visit: Cough [28] Visit Diagnoses:Acute upper respiratory infection [J06.9] Atrial fibrillation, unspecified type (HCC) [I48.91] Order(s):metoprolol succinate ER (TOPROL XL) 25 mg 24 hr tabletTake 1 tablet by mouth two times a day. [facility]: cefADROxil (DURICEF) 500 mg capsuleTake 1 capsule by mouth two times a day for 10 days.Disp: 20 capsuleRfl: 0 Benzonatate 200 mg capsuleTake 1 capsule by mouth three times a day as needed.Disp: 30 capsuleRfl: 0 Prescriptions as of 04/25/2025 - torsemide (DEMADEX) 20 mg tablet Take 20 mg by mouth once daily. - metoprolol succinate ER (TOPROL XL) 25 mg 24 hr tablet Take 1 tablet by mouth two times a day. Per [facility] - cefADROxil (DURICEF) 500 mg capsule Take 1 capsule by mouth two times a day for 10 days. - Benzonatate 200 mg capsule Take 1 capsule by mouth three times a day as needed. - spironolactone (ALDACTONE) 25 mg tablet Take 1 tablet by mouth once daily. - amiodarone (PACERONE) 200 mg tablet Take 1 tablet by mouth once daily. Per [facility]. - busPIRone (BUSPAR) 7.5 mg tablet Take 2 tablets by mouth two times a day. - venlafaxine ER (EFFEXOR XR) 150 mg 24 hr capsule Take 1 capsule by mouth once daily. - latanoprost (XALATAN) 0.005 % ophthalmic solution 1 drop daily at bedtime. - losartan (COZAAR) 100 mg tablet Take 1 tablet by mouth once daily. - simvastatin (ZOCOR) 20 mg tablet Take 1 tablet by mouth daily at bedtime. - calcium Carbonate 300 mg, 750mg, (TUMS) 300 mg (750 mg) chewable tablet Take 1 tablet by mouth two times a day. - CHOLECALCIFEROL, VITAMIN D3, ORAL Take 2,000 Int'l Units/day by mouth once daily. - apixaban (ELIQUIS) 5 mg tab(s) Take 5 mg by mouth two times a day. Problem List As Of Date 04/25/2025 Noted Resolved Iron deficiency anemia [D50.9] 04/08/2005 06/03/2015 Adjustment disorder with depressed mood [F43.21]04/08/2005 Essential hypertension, benign [I10] 01/06/2008 Hyperlipidemia, mixed [E78.2] 03/30/2012 Supraspinatus tendonitis [M75.90] 06/13/2013 06/04/2016 Sleep apnea [G47.30] 06/13/2013 Ex-smoker [Z87.891] 06/13/2013 Vasomotor rhinitis [J30.0] 06/03/2015 Cervical radiculopathy [M54.12] 03/14/2020 DDD (degenerative disc disease), cervical [M50.*03/14/2020 Carpal tunnel syndrome, bilateral [G56.03] 03/14/2020 Medication management [Z79.899] 04/28/2021 Living will on file [[id number]] 12/15/2021 Advance directive discussed with patient [Z71.8*12/15/2021 Medicare annual wellness visit, subsequent [Z00*12/15/2021 Acute pain of right shoulder [M25.511] 12/19/2021 12/27/2023 Right hip pain [M25.551] 12/19/2021 Acute pain of both knees [M25.561, M25.562] 12/30/2022 12/27/2023 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 Paroxysmal atrial fibrillation (HCC) [I48.0] 01/04/2024 Chronic systolic CHF (congestive heart failure)*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 If your symptoms worsen, start the antibiotic prescription already sent to [facility] - Do not begin the antibiotic today unless you notice worsening symptoms; if you feel worse tomorrow or during your trip, start it as directed. Prescriptions ordered this encounter Disp Refills Start End METOPROLOL SUCCINATE ER 25 MG TABLET* 04/25/2025 Class: Med Update Route: PO Sig: Take 1 tablet by mouth two times a day. Per [facility] CEFADROXIL 500 MG CAPSULE 20 c* 0 04/25/2025 05/05/2025 Route: PO Sig: Take 1 capsule by mouth two times a day for 10 days. BENZONATATE 200 MG CAPSULE 30 c* 0 04/25/2025 Route: PO Sig: Take 1 capsule by mouth three times a day as needed. Medications Discontinued During This Encounter Prescriptions - furosemide (LASIX) 40 mg tablet (Discontinued) Reported on 04/25/2025 - metoprolol succinate ER (TOPROL XL) 25 mg 24 hr tablet (Discontinued) Take 25 mg by mouth two times a day. Per [facility] Level of Service: OFFICE/OUTPATIENT ESTABLISHED MOD MDM 30 MIN [51306] Additional E/M codes: VISIT CPLX INHERENT EANDM ASSOC WITH MED * Encounter Status:Closed by DIONNA BROWN on 04/25/25 PROGRESS Observed: 04/24/2025 5:08 PM Status: COMPLETED Source: [facility] ID: [id number] Author: BRIT MÉNDEZ MA Service: ? Author Type: Magnetic Resonance Technologist Type: Progress Notes Filed: 04/24/2025 17:08 Note Text: Scan on 04/24/2025 1:14 PM by Provider, External, PA-C: BMP CTA CHEST (NON GATED) W IVCO N PE Observed: 04/17/2025 9:07 AM Status: F Source: [facility] * * *Final Report* * * DATE OF EXAM: Apr 17 2025 9:07AM [facility] [id number] - CTA CHEST (NON GATED) W IVCON PE / PROCEDURE REASON: multiple diagnoses * * * * Physician Interpretation * * * * EXAMINATION: CHEST CTA (NON GATED) WITH CONTRAST (PULMONARY EMBOLISM PROTOCOL) Clinical History: Leg swelling SOB (shortness of breath) Pain of left calf Technique: Spiral CT acquisition of the chest from the thoracic inlet to the upper abdomen following IV contrast. Axial 1 and 3 mm thick slices plus coronal and sagittal reformatted images. MQ: CTCP_5 Contrast: 100 mL Omnipaque [address] Radiation dose: Integrated Dose-length product (DLP) for this visit = 323 mGy*cm CT Dose Reduction Employed: Automated exposure control(AEC) and iterative recon CTA: Post-processed images (Maximum intensity Projection (MIP), Volume-rendered (VR), or Surface shaded display images (SSD) were created, reviewed and archived. Comparison: Shoulder radiograph 12/15/2021 RESULT: Limitations: None. Evaluation for thromboembolic disease: - Right heart chambers: No thromboembolic disease. - Main pulmonary arteries: No thromboembolic disease. - Lobar pulmonary arteries: No thromboembolic disease. - Segmental pulmonary arteries: No thromboembolic disease. - Subsegmental pulmonary arteries: No thromboembolic disease. - Additional pulmonary artery findings: Main pulmonary arteries top normal in size measuring up to 3.0 cm. Lines, tubes, and devices: None. Lung parenchyma and airways: Peribronchial and interlobular septal thickening predominantly in the posterior lungs and lung bases suggesting interstitial edema. No consolidation. Small linear hypoventilation/scarring in the anterior mid lungs. No suspicious pulmonary nodule. Scattered calcified granulomas. The central airways are patent. Pleural space: Small bilateral pleural effusions. Lower neck, lymph nodes, and mediastinum: The imaged thyroid gland is normal. No axillary or supraclavicular lymphadenopathy. A 1.3 cm superior pretracheal lymph node is nonspecific. Other smaller lymph nodes in the mid mediastinum and subcarinal space of heterogeneous calcifications and skin be seen with prior granulomatous infection. Scattered small hilar lymph nodes also with calcifications measure up to 0.7 cm on the right. Heart, pericardium, and thoracic vessels: Thoracic aorta is normal in caliber with mild atherosclerotic calcifications. The right brachiocephalic and left common carotid arteries arise from the aorta as a common origin, a normal variant. Moderate coronary artery atherosclerotic calcifications are noted, although the study is not optimized for coronary assessment. No pericardial effusion or thickening. Bones and soft tissues: Thoracic spondylosis. Upper abdomen: No acute abnormality in the imaged upper abdomen. And scattered calcified likely granulomas. Localizer images: No additional findings. IMPRESSION: 1. No pulmonary emboli, no signs of right heart strain. 2. Small bilateral pleural effusions and interstitial edema reflecting moderate congestion. 3. Mild cardiomegaly, diffuse coronary artery calcifications.. 4. Indeterminate 1.3 cm superior pretracheal lymph node may reflect lymphatic congestion. Recommend correlation with prior studies if available, otherwise consider follow-up in 6 months to assess for stability/resolution. Manager Logistic: GRAHAM Transcribe Date/Time: Apr 17 2025 11:37A Dictated by : SMOOTH KAPADIA MD This examination was interpreted and the report reviewed and electronically signed by: SMOOTH KAPADIA MD on Apr 17 2025 11:46AM EST [id number] PROGRESS Observed: 04/17/2025 8:40 AM Status: COMPLETED Source: [facility] HNO ID: [id number] Author: BETTY RAO RT(R) Service: ? Author Type: Environmental Programs Manager Type: Progress Notes Filed: 04/17/2025 14:46 Note Text: Radiology Service Progress Note DATE OF SERVICE: April 17, 2025 TIME: 2:45 PM PATIENT IDENTITY VERIFICATION COMPLETED USING TWO (2) STANDARD IDENTIFIERS: Name and Date of confirmed by patient verbally. FALL SCREENING: Has the patient had 2 falls in the last year or 1 fall with injury or currently using an Ambulatory Assistive Device (Walker, Cane, Wheelchair, Crutches, etc.)? No PATIENT GENDER DATA: Assigned female at . status: : No status: NO. PATIENT RELEVANT IMPLANT DATA REVIEWED: Yes PATIENT PRESENTS WITH AN IMPLANTABLE OR ATTACHED BI LEAD: No ALLERGIES: Reviewed and unchanged CONTRAST ALLERGY: NO. EXAM: CT -CONTRAST INDUCED NEPHROPATHY RISK FACTORS: Patient age > 60 years CREATININE: Creatinine Date Value Ref Range Status 01/06/2025 0.95 0.58 - 0.96 mg/dL Final 01/19/2024 0.88 0.58 - 0.96 mg/dL Final 01/04/2024 0.81 0.58 - 0.96 mg/dL Final Estimated Glomerular Filtration Rate Date Value Ref Range Status 01/06/2025 58 (L) >=60 mL/min/1.73m? Final Comment: Estimated Glomerular Filtration Rate (eGFR) is calculated using the 2020 CKD-EPI creatinine equation. This equation utilizes serum creatinine, sex, and age as parameters. The creatinine assay has traceable calibration to isotope dilution-mass spectrometry. Refer to KDIGO guidelines for clinical interpretation. In patients with unstable renal function, e.g. those with acute kidney injury, the eGFR may not accurately reflect actual GFR. eGFR- Date Value Ref Range Status 04/28/2021 >60 Final P.O.C.T. RESULTS: POC done: Yes, See Lab Tab April 17, 2025 TREATMENT: N/A PERIPHERAL IV DATA: Ambulatory: A peripheral IV was started in the Left antecubital site with a Angio cath: 18 gauge. RADIOLOGY DEPARTMENT: CT; Exam(s) Completed: PE Study. Anesthesia: No SIGNATURE: RT Fernando(R) PATIENT NAME: Cheryl Abarca DATE: April 17, 2025 TIME: 2:45 PM US DVT LOWER LT Observed: 04/17/2025 8:04 AM Status: F Source: [facility] * * *Final Report* * * DATE OF EXAM: Apr 17 2025 8:04AM [facility] 1006 - US DVT LOWER LT / PROCEDURE REASON: multiple diagnoses * * * * Physician Interpretation * * * * EXAMINATION: LEFT LOWER EXTREMITY DEEP VENOUS ULTRASOUND WITH DOPPLER IMAGING CLINICAL HISTORY: Swelling. TECHNIQUE: Grayscale with compression maneuvers, color Doppler and spectral Doppler imaging of the left proximal deep veins was performed. Grayscale with compression maneuvers of the peroneal and posterior tibial veins was performed. The left great and small saphenous veins were evaluated at their insertion to the deep system. The contralateral common femoral vein was imaged for comparison. Images were obtained and stored in a permanent archive. MQ: USLEL_1 COMPARISON: None RESULT: LEFT LOWER EXTREMITY PROXIMAL DEEP VEINS Distal External Iliac, Common Femoral and proximal Profunda Veins: Compression: Normal Doppler: Normal, spontaneous respirophasic flow. Normal response to augmentation. Femoral vein: Compression: Normal Doppler: Normal, spontaneous flow. Normal response to augmentation. Popliteal vein: Compression: Normal Doppler: Normal, spontaneous flow. Normal response to augmentation. CALF DEEP VEINS Peroneal veins: Normal compression. Posterior tibial veins: Normal compression. Gastrocnemius and Soleal veins: Not imaged. SUPERFICIAL VEINS Great saphenous: Patent and compressible at insertion into common femoral vein; not otherwise assessed. Small Saphenous: Patent and compressible in the proximal calf, not otherwise assessed. RIGHT LOWER EXTREMITY (FOR COMPARISON) Common Femoral Vein: Compression: Normal Doppler: Normal, spontaneous respirophasic flow. Normal response to augmentation. IMPRESSION: Negative study for proximal DVT in the left lower extremity. Negative study for calf DVT in the left lower extremity. Negative study for superficial thrombophlebitis in the imaged segments of the left lower extremity. Manager Logistic: GRAHAM Transcribe Date/Time: Apr 17 2025 8:05A Dictated by : SAURABH GUTIERREZ MD This examination was interpreted and the report reviewed and electronically signed by: SAURABH GUTIERREZ MD on Apr 17 2025 8:06AM EST [id number] PROGRESS Observed: 04/17/2025 7:45 AM Status: COMPLETED Source: [facility] ID: [id number] Author: OPAL HOBBS RDMS Service: ? Author Type: Seed Mill Superintendent Type: Progress Notes Filed: 04/17/2025 10:18 Note Text: Radiology Service Progress Note PATIENT NAME: Cheryl Abarca DATE OF SERVICE: April 17, 2025 TIME: 10:18 AM PATIENT IDENTITY VERIFICATION COMPLETED USING TWO (2) IDENTIFIERS: Name and Date of confirmed by patient verbally. FALL SCREENING: Has the patient had 2 falls in the last year or 1 fall with injury or currently using an Ambulatory Assistive Device (Walker, Cane, Wheelchair, Crutches, etc.)? No PATIENT GENDER DATA: Assigned female at . status: : No status: NO. PATIENT RELEVANT IMPLANT DATA REVIEWED: Not Applicable PATIENT PRESENTS WITH AN IMPLANTABLE OR ATTACHED BI LEAD: No RADIOLOGY DEPARTMENT: Ultrasound PERIPHERAL IV DATA: Not applicable SIGNED BY: Opal Hobbs RDMS RVT April 17, 2025 10:18 AM MIKE Observed: 04/17/2025 12:00 AM Status: COMPLETED Source: [facility] Telephone ([email or web address]) TEODORACHERYL Alla ([id number]) 1935 F Date Time Provider Department 04/17/25 CARL RENDONHERI During your visit today, we recorded the following information about you: Franca Cedeno RN 04/17/2025 1:21 PM Signed Patient calls and states that she and her sons were going over provider instructions. On instructions it said that that patient was supposed to get an x ray on her bilateral knees. 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 Patient asking if she needs to be measured for this and where she should get stockings? Patient states that she was never on Donepezil. Patient states that she was never on medication but her was on medication. Patient asking if she needs to be taking this and if so prescription will need to be sent to pharmacy. Please review and advise, JESUS Pedro Jeffrey A, MD 04/17/2025 1:35 PM Signed Advise patient I noted that the instructions on her after visit summary were not correct and should disregard info about the x-ray and donepezil. I would suggest going onto [facility] and looking up Woman's compression socks and get some that are 15-20 mmHg. Brit Méndez MA 04/19/2025 1:49 PM Signed Call to pt but unable to speak due to driving at this time. Pt states she will call back and speak with Triage Nurse. Review Result note as well CTA Chest. ALEJANDRO Harris M Robin, RN 04/19/2025 2:59 PM Signed Pt returned call and given provider's message below with verbalized understanding. Reviewed both encounters messages with patient. Patient wants pcp to know, she is unable to breath when she goes to bed. This has been going on for weeks. Pt discussed with vice president digital strategist, who changed her metoprolol and amiodarone, but she still cannot breath and therefore cannot sleep. Reports medication was changed a couple days ago. Pt has tried different positions but nothing helps. Reports last night she was up at 1 am and again at 4 am- checked her BP this time and it was normal. The only way to catch her breath is to get out of bed and walk. Carl Rendon MD 04/19/2025 10:00 PM Signed Let patient know I think her breathing issues at night are due to the fluid she has on her lungs due to her heart and would advise she contact [facility] to make them aware of her continues symptoms. There is a possibility they may want her to go to the ER. Which I would also agree with. Jordana Shanks RN 04/20/2025 10:16 AM Signed Patient calls back and provider message below reviewed with verbalized understanding. Patient asking about the Ensure that is listed on her after visit summary. Asking if she should be on Ensure because it says to increase it and she has never been on it as well as weight is not an issue. Notified patient if she has not been on it to disregard. Patient wants provider to advise. JESUS Whitaker Jeffrey A, MD 04/20/2025 12:55 PM Signed Advise patient she does not need to take the ensure. Brit Méndez MA 04/20/2025 4:14 PM Signed Call to patient and notified her of message below, pt verbalized understanding. Brit Méndez MA Allergies As of Date: 04/17/2025 Noted Allergy Reaction BACTRIM DS (SULFAMETHOXAZOLE-TRIM*01/04/2008 2 - Rash Date Reviewed: 04/17/2025 Reviewed by: Betty Rao, RT(R) - Fully Assessed Prescriptions as of 04/20/2025 - spironolactone (ALDACTONE) 25 mg tablet Take 1 tablet by mouth once daily. - amiodarone (PACERONE) 200 mg tablet Take 1 tablet by mouth once daily. Per [facility]. - metoprolol succinate ER (TOPROL XL) 25 mg 24 hr tablet Take 1 tablet by mouth once daily. Per [facility] - busPIRone (BUSPAR) 7.5 mg tablet Take 2 tablets by mouth two times a day. - venlafaxine ER (EFFEXOR XR) 150 mg 24 hr capsule Take 1 capsule by mouth once daily. - latanoprost (XALATAN) 0.005 % ophthalmic solution 1 drop daily at bedtime. - losartan (COZAAR) 100 mg tablet Take 1 tablet by mouth once daily. - simvastatin (ZOCOR) 20 mg tablet Take 1 tablet by mouth daily at bedtime. - calcium Carbonate 300 mg, 750mg, (TUMS) 300 mg (750 mg) chewable tablet Take 1 tablet by mouth two times a day. - CHOLECALCIFEROL, VITAMIN D3, ORAL Take 2,000 Int'l Units/day by mouth once daily. - furosemide (LASIX) 40 mg tablet Take 40 mg by mouth once daily. - apixaban (ELIQUIS) 5 mg tab(s) Take 5 mg by mouth two times a day. 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] 06/03/2015 Cervical radiculopathy [M54.12] 03/14/2020 DDD (degenerative disc disease), cervical [M50.*03/14/2020 Carpal tunnel syndrome, bilateral [G56.03] 03/14/2020 Medication management [Z79.899] 04/28/2021 Living will on file [RCS1123] 12/15/2021 Advance directive discussed with patient [Z71.8*12/15/2021 Medicare annual wellness visit, subsequent [Z00*12/15/2021 Acute pain of right shoulder [M25.511] 12/19/2021 12/27/2023 Right hip pain [M25.551] 12/19/2021 Acute pain of both knees [M25.561, M25.562] 12/30/2022 12/27/2023 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 Paroxysmal atrial fibrillation (HCC) [I48.0] 01/04/2024 Chronic systolic CHF (congestive heart failure)*01/04/2024 half-way current use of anticoagulant therapy *01/04/2024 LIZZY (generalized anxiety disorder) [F41.1] 02/01/2024 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] 01/08/2025 Neoplasm of uncertain behavior of skin of upper*01/08/2025 01/30/2025 Common wart [B07.8] 01/30/2025 On amiodarone therapy [Z79.899] 04/16/2025 Encounter Status:Closed by BRIT MÉNDEZ on 04/20/25 TSH SERPL-ACNC Collected: 12:31 PM Status: F Source: [facility] Order Comment: Specimen Type : BLOOD SPECIMEN Ordering Facility: [facility] Address: [address] [place] [address] TYPE CODE TESTS RESULT OUT OF RANGE REFERENCE UNITS LAB 3016-3(LOINC) TSH SerPl-aCnc 2.570 0.270-4.200 mIU/L Performed By: #### 3016-3 ## ## [facility] CLIA [id number] [address] [place] [address] [place] [address] [place] PROGRESS Observed: 04/16/2025 11:20 AM Status: COMPLETED Source: [facility] HNO ID: [id number] Author: CARL RENDON MD Service: ? Author Type: Physician Type: Progress Notes Filed: 04/16/2025 19:09 Note Text: Chief Complaint Patient presents with: Breathing Problem EUGENE Abarca is a 89 year old female who presents here today for breathing issues and possible medication needing adjustment. Patient called into the office and spoke with Triage Nurse on 04/14/25 and stated for the past 2-3 months she's been having issues catching her breath at times. Patient reported being under increased stress and thinks her anxiety medication needs to be adjusted. Patient also spoke with Cardiology who recently adjusted her cardiac medication, but discussed with patient about adjusting her Venlafaxine. Patient has questions about her medication regimen. Has left leg aching and left foot swelling. On 04/10/2025 was advised by Cardiology to d/c Amlodipine due to edema in left foot. Aldactone 25 mg once daily was started and was advised to increase Lasix for 5 days. Patient denies and chest pain, chest heaviness or palpitations. Her apple watches notifies her when her heart rate is increased. Patient slept very good on Wednesday for the first time in several days but then awoke on Wednesday night with orthopnea. Patient does feel at times when she is Shortness of Breath that her anxiety is not controlled. She is not able to discern which comes first the anxiety or the Shortness of Breath. Past medical history, appointments, medications, allergies reviewed. Previous Medical History PAST MEDICAL HISTORY Diagnosis Date Acute systolic CHF (congestive heart failure) ([facility]) 01/04/2024 Echo 12/29/23. EF 50% Adjustment disorder with depressed mood 04/08/2005 Advance directive discussed with patient 12/15/2021 Discussed 11/2021 Carpal tunnel syndrome, bilateral 03/14/2020 Cervical radiculopathy 03/14/2020 Chronic bronchitis ([facility]) 05/31/2014 Chronic systolic CHF (congestive heart failure) ([facility]) 01/04/2024 Echo 12/29/23. EF 50% Common wart 01/30/2025 Left upper arm: excised 01/2025. DDD (degenerative disc disease), cervical 03/14/2020 Diverticulitis of colon (without mention of hemorrhage)(562.11) Essential hypertension, benign 01/06/2008 LIZZY (generalized anxiety disorder) 02/01/2024 [facility] for counseling. 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 PAST SURGICAL HISTORY OF Right 11/2024 right 2nd toe. PLC BREAST CLIP PERC Left breast TONSILLECTOMY PRIMARY/SECONDARY <AGE 14 Tonsillectomy Family History FAMILY HISTORY Problem Relation Age of Onset Prostate Cancer Father Psychiatry Mother Hypertension Mother Breast Cancer Maternal Grandmother Colon Cancer Maternal Grandfather Psychiatry Brother schizophrenic Arthritis Paternal Grandfather Rheumatoid Patient Allergies ALLERGIES Allergen Reactions Bactrim Ds [Sulfame* Rash Current Medications Current Outpatient Medications on File Prior to Visit Medication Sig busPIRone (BUSPAR) 7.5 mg tablet Take 1 tablet by mouth two times a day. amiodarone (PACERONE) 100 mg tablet Take 1 tablet by mouth once daily. Per [facility]. metoprolol succinate ER (TOPROL XL) 50 mg 24 hr tablet Take 1 tablet by mouth once daily. venlafaxine ER (EFFEXOR XR) 150 mg 24 hr capsule Take 1 capsule by mouth once daily. latanoprost (XALATAN) 0.005 % ophthalmic solution 1 drop daily at bedtime. losartan (COZAAR) 100 mg tablet Take 1 tablet by mouth once daily. simvastatin (ZOCOR) 20 mg tablet Take 1 tablet by mouth daily at bedtime. calcium Carbonate 300 mg, 750mg, (TUMS) 300 mg (750 mg) chewable tablet Take 1 tablet by mouth two times a day. CHOLECALCIFEROL, VITAMIN D3, ORAL Take 2,000 Int'l Units/day by mouth once daily. POTASSIUM ORAL Take 20 mEq by mouth once daily. furosemide (LASIX) 40 mg tablet Take 40 mg by mouth once daily. apixaban (ELIQUIS) 5 mg tab(s) Take 5 mg by mouth two times a day. No current facility-administered medications on file prior to visit. Social History SOCIAL HISTORY[1] Review of Symptoms REVIEW OF SYSTEMS Denies chest pain or palpitations. SEE HPI EXAM: BP 110/84 (BP Site: Right Arm, BP Position: Sitting, BP Cuff Size: Regular Adult) Pulse 108 Resp 18 Wt 71.7 kg (158 lb) SpO2 96% BMI 27.99 kg/m? General Appearance: Well appearing, alert, in no acute distress, well-hydrated, well nourished.. Neck: Supple, no adenopathy; thyroid symmetric, normal size, no bruits. Lungs: Lungs clear to auscultation. No wheezing, rhonchi, rales.. Heart: irregularly irregular without murmur, gallop, or rubs. No ectopy. Abdomen: Normal abdominal exam, Abdomen soft, non-tender. Bowel sounds normal. No masses, organomegaly. Extremities: No deformities, skin discoloration, Good capillary refill. Mild pitting edema in th left lower leg. Calf not tender to palpation and no cords. Jersey's test produced pain in the lateral left calf Health Maintenance List Influenza Vaccine(1) due on 03/26/2025 DTaP,Tdap,Td Vaccine(4 - Td or Tdap) due on 01/08/2026 Depression Screening due on 01/08/2026 Medicare Annual Wellness Visit due on 01/08/2026 Diabetes Screening due on 01/07/2028 Bone Density Screening Completed Advance Directive Discussion Completed RSV Vaccine Completed Shingrix Vaccine Completed Pneumococcal Vaccine: 50+ Completed Data reviewed Reviewed outside office note and labs dome by cardio from 04/10/2025. BNP was elevated over 5,000 and D-dimer was at top of normal at 0.48. patient was taken off of Norvasc. Metoprolol ER was changed to 25 mg a day, Amiodarone adjusted to 200 mg a day and Aldactone added. Assessment and Plan ASSESSMENT/PLAN: 1. Leg swelling - ICD9: 729.81, ICD10: M79.89 (primary diagnosis) Check STAT - US LEG VEIN DVT UNL VAS LAB - CTA CHEST (NONGATED) W IVCON PE - IV CONTRAST (RADIOLOGY PROCEDURE) - NOT ON MAR - US DVT LOWER LEFT 2. SOB (shortness of breath) - ICD9: 786.05, ICD10: R06.02 Check - THYROID STIMULATING HORMONE - CTA CHEST (NONGATED) W IVCON PE - IV CONTRAST (RADIOLOGY PROCEDURE) - NOT ON MAR STAT - US DVT LOWER LEFT STAT 3. Pain of left calf - ICD9: 729.5, ICD10: M79.662 Check STAT - CTA CHEST (NONGATED) W IVCON PE - IV CONTRAST (RADIOLOGY PROCEDURE) - NOT ON MAR - US DVT LOWER LEFT 4. On amiodarone therapy - ICD9: V58.69, ICD10: Z79.899 Check - THYROID STIMULATING HORMONE 5. LIZZY (generalized anxiety disorder) - ICD9: 300.02, ICD10: F41.1 - discussed either increasing the Effexor XR to a total of 225 mg a day or increasing the buspar to 15 mg twice a day. Patient felt the later was the better option. Med list updated for Amiodarone, Metoprolol and Buspar dosage changes. F/u in 3 weeks to re-access LIZZY Carl Rendon MD I spent a total of 44 minutes on the date of the service which included preparing to see the patient, [id number] patient care, completing clinical documentation, performing a medically appropriate examination, counseling and educating the patient/family/caregiver and ordering medications, tests, or procedures. Recording using [employer] software for draft documentation of the visit was discussed with the patient/authorized service representative; all questions welcomed and answered. Patient/authorized service representative agreed to proceed [1] Social History Tobacco Use Smoking status: Former Current packs/day: 0.00 Types: Pipe, Cigarettes Start date: 01/07/2006 Quit date: 12/27/2023 Years since quittin.3 Smokeless tobacco: Never Tobacco comments: Used to smoke cigarettes. Vaping Use Vaping status: Never Used Substance Use Topics Alcohol use: Yes Comment: wine- 4-6 oz 5 times a week Drug use: No CNOV Observed: 04/16/2025 11:20 AM Status: COMPLETED Source: [facility] CHERYL ABARCA ([id number]) 1935 F Date Time Provider Department 04/16/25 11:20 AM CARL RENDON During your visit today, we recorded the following information about you: Pulse Respiration Blood pressure Weight 108/minute 18/minute 110/84 71.7 kg Carl Rendon MD 04/16/2025 7:09 PM Signed Chief Complaint Patient presents with: Breathing Problem HPI Cheryl Abarca is a 89 year old female who presents here today for breathing issues and possible medication needing adjustment. Patient called into the office and spoke with Triage Nurse on 04/14/25 and stated for the past 2-3 months she's been having issues catching her breath at times. Patient reported being under increased stress and thinks her anxiety medication needs to be adjusted. Patient also spoke with Cardiology who recently adjusted her cardiac medication, but discussed with patient about adjusting her Venlafaxine. Patient has questions about her medication regimen. Has left leg aching and left foot swelling. On 04/10/2025 was advised by Cardiology to d/c Amlodipine due to edema in left foot. Aldactone 25 mg once daily was started and was advised to increase Lasix for 5 days. Patient denies and chest pain, chest heaviness or palpitations. Her apple watches notifies her when her heart rate is increased. Patient slept very good on Wednesday for the first time in several days but then awoke on Wednesday night with orthopnea. Patient does feel at times when she is Shortness of Breath that her anxiety is not controlled. She is not able to discern which comes first the anxiety or the Shortness of Breath. Past medical history, appointments, medications, allergies reviewed. Previous Medical History PAST MEDICAL HISTORY Diagnosis Date Acute systolic CHF (congestive heart failure) (HCC) 01/04/2024 Echo 12/29/23. EF 50% Adjustment disorder with depressed mood 04/08/2005 Advance directive discussed with patient 12/15/2021 Discussed 11/2021 Carpal tunnel syndrome, bilateral 03/14/2020 Cervical radiculopathy 03/14/2020 Chronic bronchitis (HCC) 05/31/2014 Chronic systolic CHF (congestive heart failure) (HCC) 01/04/2024 Echo 12/29/23. EF 50% Common wart 01/30/2025 Left upper arm: excised 01/2025. DDD (degenerative disc disease), cervical 03/14/2020 Diverticulitis of colon (without mention of hemorrhage)(562.11) Essential hypertension, benign 01/06/2008 LIZZY (generalized anxiety disorder) 02/01/2024 [facility] for counseling. 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 PAST SURGICAL HISTORY OF Right 11/2024 right 2nd toe. PLC BREAST CLIP PERC Left breast TONSILLECTOMY PRIMARY/SECONDARY <AGE 14 Tonsillectomy Family History FAMILY HISTORY Problem Relation Age of Onset Prostate Cancer Father Psychiatry Mother Hypertension Mother Breast Cancer Maternal Grandmother Colon Cancer Maternal Grandfather Psychiatry Brother schizophrenic Arthritis Paternal Grandfather Rheumatoid Patient Allergies ALLERGIES Allergen Reactions Bactrim Ds [Sulfame* Rash Current Medications Current Outpatient Medications on File Prior to Visit Medication Sig busPIRone (BUSPAR) 7.5 mg tablet Take 1 tablet by mouth two times a day. amiodarone (PACERONE) 100 mg tablet Take 1 tablet by mouth once daily. Per [facility]. metoprolol succinate ER (TOPROL XL) 50 mg 24 hr tablet Take 1 tablet by mouth once daily. venlafaxine ER (EFFEXOR XR) 150 mg 24 hr capsule Take 1 capsule by mouth once daily. latanoprost (XALATAN) 0.005 % ophthalmic solution 1 drop daily at bedtime. losartan (COZAAR) 100 mg tablet Take 1 tablet by mouth once daily. simvastatin (ZOCOR) 20 mg tablet Take 1 tablet by mouth daily at bedtime. calcium Carbonate 300 mg, 750mg, (TUMS) 300 mg (750 mg) chewable tablet Take 1 tablet by mouth two times a day. CHOLECALCIFEROL, VITAMIN D3, ORAL Take 2,000 Int'l Units/day by mouth once daily. POTASSIUM ORAL Take 20 mEq by mouth once daily. furosemide (LASIX) 40 mg tablet Take 40 mg by mouth once daily. apixaban (ELIQUIS) 5 mg tab(s) Take 5 mg by mouth two times a day. No current facility-administered medications on file prior to visit. Social History SOCIAL HISTORY[1] Review of Symptoms REVIEW OF SYSTEMS Denies chest pain or palpitations. SEE HPI EXAM: BP 110/84 (BP Site: Right Arm, BP Position: Sitting, BP Cuff Size: Regular Adult) Pulse 108 Resp 18 Wt 71.7 kg (158 lb) SpO2 96% BMI 27.99 kg/m? General Appearance: Well appearing, alert, in no acute distress, well-hydrated, well nourished.. Neck: Supple, no adenopathy; thyroid symmetric, normal size, no bruits. Lungs: Lungs clear to auscultation. No wheezing, rhonchi, rales.. Heart: irregularly irregular without murmur, gallop, or rubs. No ectopy. Abdomen: Normal abdominal exam, Abdomen soft, non-tender. Bowel sounds normal. No masses, organomegaly. Extremities: No deformities, skin discoloration, Good capillary refill. Mild pitting edema in th left lower leg. Calf not tender to palpation and no cords. Jersey's test produced pain in the lateral left calf Health Maintenance List Influenza Vaccine(1) due on 03/26/2025 DTaP,Tdap,Td Vaccine(4 - Td or Tdap) due on 01/08/2026 Depression Screening due on 01/08/2026 Medicare Annual Wellness Visit due on 01/08/2026 Diabetes Screening due on 01/07/2028 Bone Density Screening Completed Advance Directive Discussion Completed RSV Vaccine Completed Shingrix Vaccine Completed Pneumococcal Vaccine: 50+ Completed Data reviewed Reviewed outside office note and labs dome by cardio from 04/10/2025. BNP was elevated over 5,000 and D-dimer was at top of normal at 0.48. patient was taken off of Norvasc. Metoprolol ER was changed to 25 mg a day, Amiodarone adjusted to 200 mg a day and Aldactone added. Assessment and Plan ASSESSMENT/PLAN: 1. Leg swelling - ICD9: 729.81, ICD10: M79.89 (primary diagnosis) Check STAT - US LEG VEIN DVT UNL VAS LAB - CTA CHEST (NONGATED) W IVCON PE - IV CONTRAST (RADIOLOGY PROCEDURE) - NOT ON MAR - US DVT LOWER LEFT 2. SOB (shortness of breath) - ICD9: 786.05, ICD10: R06.02 Check - THYROID STIMULATING HORMONE - CTA CHEST (NONGATED) W IVCON PE - IV CONTRAST (RADIOLOGY PROCEDURE) - NOT ON MAR STAT - US DVT LOWER LEFT STAT 3. Pain of left calf - ICD9: 729.5, ICD10: M79.662 Check STAT - CTA CHEST (NONGATED) W IVCON PE - IV CONTRAST (RADIOLOGY PROCEDURE) - NOT ON MAR - US DVT LOWER LEFT 4. On amiodarone therapy - ICD9: V58.69, ICD10: Z79.899 Check - THYROID STIMULATING HORMONE 5. LIZZY (generalized anxiety disorder) - ICD9: 300.02, ICD10: F41.1 - discussed either increasing the Effexor XR to a total of 225 mg a day or increasing the buspar to 15 mg twice a day. Patient felt the later was the better option. Med list updated for Amiodarone, Metoprolol and Buspar dosage changes. F/u in 3 weeks to re-access LIZZY Carl Rendon MD I spent a total of 44 minutes on the date of the service which included preparing to see the patient, [id number] patient care, completing clinical documentation, performing a medically appropriate examination, counseling and educating the patient/family/caregiver and ordering medications, tests, or procedures. Recording using [employer] software for draft documentation of the visit was discussed with the patient/authorized service representative; all questions welcomed and answered. Patient/authorized service representative agreed to proceed [1] Social History Tobacco Use Smoking status: Former Current packs/day: 0.00 Types: Pipe, Cigarettes Start date: 01/07/2006 Quit date: 12/27/2023 Years since quittin.3 Smokeless tobacco: Never Tobacco comments: Used to smoke cigarettes. Vaping Use Vaping status: Never Used Substance Use Topics Alcohol use: Yes Comment: wine- 4-6 oz 5 times a week Drug use: No Carl Rendon MD 04/16/2025 12:15 PM Signed We discussed your knee pain: - You reported pain in your left knee that started during the summer. It does not hurt while sitting but does hurt with certain movements and when walking. - I performed a physical exam of your knee, which revealed tenderness and pain with certain movements. - We will get an x-ray of your knees today to evaluate further. Please check in at the main lobby and wait for the x-ray water pollution control technician to call your name. We discussed your weight and nutrition: - Your weight has improved since your last visit. However, I recommend increasing your intake of nutritional drinks to twice daily (once in the morning and once in the afternoon) to help maintain and improve your weight. - Please continue this routine and let me know if you have any difficulty with it. We discussed your swollen leg: - The swelling in your leg has been present for a long time and is likely due to vascular issues. Unfortunately, this is unlikely to resolve completely. - Continue wearing a compression sock daily, elevating your leg above heart level when sitting, and lightly massaging the area to help manage the swelling. We discussed restarting Donepezil (Aricept): - I recommend restarting Donepezil, which is beneficial for brain health. Take it once daily in the morning, preferably with your other vitamins. - If you experience any side effects, please let me know. If you need a refill, check the bottle for remaining refills or contact our office. We discussed your flu shot: - You plan to get your flu shot at the pharmacy after May 08. If you are unable to do so, please let us know, and we can administer it here. Follow-up: - I would like to see you back in one month to check on your progress with the Donepezil and your nutritional intake. - Your next complete physical is scheduled in six months (around September). I have ordered labs to be completed before that visit. If you have any questions or concerns before your next appointment, please contact our office. Allergies As of Date: 04/16/2025 Noted Allergy Reaction BACTRIM DS (SULFAMETHOXAZOLE-TRIM*01/04/2008 2 - Rash Date Reviewed: 04/16/2025 Reviewed by: Carl Rendon MD - Fully Assessed Reason for Visit: Breathing Problem [17] Primary Visit Diagnosis:Leg swelling [M79.89] Other Visit Diagnoses:SOB (shortness of breath) [R06.02] Pain of left calf [M79.662] On amiodarone therapy [Z79.899] LIZZY (generalized anxiety disorder) [F41.1] Order(s):amiodarone (PACERONE) 200 mg tabletTake 1 tablet by mouth once daily. Per [facility].Disp: Rfl: metoprolol succinate ER (TOPROL XL) 25 mg 24 hr tabletTake 1 tablet by mouth once daily. [facility] Rfl: US LEG VEIN DVT UNL VAS LAB [[id number]] Order #: [id number] FUTURE THYROID STIMULATING HORMONE [SQTSH] Order #: [id number] FUTURE CTA CHEST (NONGATED) W IVCON PE [[id number]] Order #: [id number] FUTURE iv contrast (will be provided with radiology test)CT Chest PE -Inject, intravenously, once for 1 dose.No IV access, insert saline lock prior to the beginning of sedation, infusion, injection of imaging exam. Discontinue saline lock post exam. If Pt. has a central line or IVAD, may access for administration according to line specific nursing protocol. Once exam is complete flush line and de-access according to line specific nursing protocol in the CT contrast administration guidelines link.Disp: 1 eachRfl: 0 busPIRone (BUSPAR) 7.5 mg tabletTake 2 tablets by mouth two times a day.Disp: 60 tabletRfl: 5 US DVT LOWER LEFT [[id number]] Order #: [id number] FUTURE Prescriptions as of 04/16/2025 - spironolactone (ALDACTONE) 25 mg tablet Take 1 tablet by mouth once daily. - amiodarone (PACERONE) 200 mg tablet Take 1 tablet by mouth once daily. Per [facility]. - metoprolol succinate ER (TOPROL XL) 25 mg 24 hr tablet Take 1 tablet by mouth once daily. Per [facility] - iv contrast (will be provided with radiology test) CT Chest PE -Inject, intravenously, once for 1 dose.No IV access, insert saline lock prior to the beginning of sedation, infusion, injection of imaging exam. Discontinue saline lock post exam. If Pt. has a central line or IVAD, may access for administration according to line specific nursing protocol. Once exam is complete flush line and de-access according to line specific nursing protocol in the CT contrast administration guidelines link. - busPIRone (BUSPAR) 7.5 mg tablet Take 2 tablets by mouth two times a day. - venlafaxine ER (EFFEXOR XR) 150 mg 24 hr capsule Take 1 capsule by mouth once daily. - latanoprost (XALATAN) 0.005 % ophthalmic solution 1 drop daily at bedtime. - losartan (COZAAR) 100 mg tablet Take 1 tablet by mouth once daily. - simvastatin (ZOCOR) 20 mg tablet Take 1 tablet by mouth daily at bedtime. - calcium Carbonate 300 mg, 750mg, (TUMS) 300 mg (750 mg) chewable tablet Take 1 tablet by mouth two times a day. - CHOLECALCIFEROL, VITAMIN D3, ORAL Take 2,000 Int'l Units/day by mouth once daily. - furosemide (LASIX) 40 mg tablet Take 40 mg by mouth once daily. - apixaban (ELIQUIS) 5 mg tab(s) Take 5 mg by mouth two times a day. Medication notes this encounter POTASSIUM ORAL >> Carl Rendon MD 04/16/2025 11:45 AM [facility] Problem List As Of Date 04/16/2025 Noted Resolved Iron deficiency anemia [D50.9] 04/08/2005 06/03/2015 Adjustment disorder with depressed mood [F43.21]04/08/2005 Essential hypertension, benign [I10] 01/06/2008 Hyperlipidemia, mixed [E78.2] 03/30/2012 Supraspinatus tendonitis [M75.90] 06/13/2013 06/04/2016 Sleep apnea [G47.30] 06/13/2013 Ex-smoker [Z87.891] 06/13/2013 Vasomotor rhinitis [J30.0] 06/03/2015 Cervical radiculopathy [M54.12] 03/14/2020 DDD (degenerative disc disease), cervical [M50.*03/14/2020 Carpal tunnel syndrome, bilateral [G56.03] 03/14/2020 Medication management [Z79.899] 04/28/2021 Living will on file [[id number]] 12/15/2021 Advance directive discussed with patient [Z71.8*12/15/2021 Medicare annual wellness visit, subsequent [Z00*12/15/2021 Acute pain of right shoulder [M25.511] 12/19/2021 12/27/2023 Right hip pain [M25.551] 12/19/2021 Acute pain of both knees [M25.561, M25.562] 12/30/2022 12/27/2023 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 Paroxysmal atrial fibrillation (HCC) [I48.0] 01/04/2024 Chronic 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 It does not hurt while sitting but does hurt with certain movements and when walking. - I performed a physical exam of your knee, which revealed tenderness and pain with certain movements. - We will get an x-ray of your knees today to evaluate further. Please check in at the main lobby and wait for the x-ray water pollution control technician to call your name. We discussed your weight and nutrition: - Your weight has improved since your last visit. However, I recommend increasing your intake of nutritional drinks to twice daily (once in the morning and once in the afternoon) to help maintain and improve your weight. - Please continue this routine and let me know if you have any difficulty with it. We discussed your swollen leg: - The swelling in your leg has been present for a long time and is likely due to vascular issues. Unfortunately, this is unlikely to resolve completely. - Continue wearing a compression sock daily, elevating your leg above heart level when sitting, and lightly massaging the area to help manage the swelling. We discussed restarting Donepezil (Aricept): - I recommend restarting Donepezil, which is beneficial for brain health. Take it once daily in the morning, preferably with your other vitamins. - If you experience any side effects, please let me know. If you need a refill, check the bottle for remaining refills or contact our office. We discussed your flu shot: - You plan to get your flu shot at the pharmacy after May 08. If you are unable to do so, please let us know, and we can administer it here. Follow-up: - I would like to see you back in one month to check on your progress with the Donepezil and your nutritional intake. - Your next complete physical is scheduled in six months (around September). I have ordered labs to be completed before that visit. If you have any questions or concerns before your next appointment, please contact our office. Prescriptions ordered this encounter Disp Refills Start End AMIODARONE 200 MG TABLET 04/16/2025 Class: Med Update Route: PO Sig: Take 1 tablet by mouth once daily. Per [facility]. METOPROLOL SUCCINATE ER 25 MG TABLET* 04/16/2025 Class: Med Update Route: PO Sig: Take 1 tablet by mouth once daily. Per [facility] IV CONTRAST (RADIOLOGY PROCEDURE) - * 1 ea* 0 04/16/2025 04/17/2025 Class: In Office Sig: CT Chest PE -Inject, intravenously, once for 1 dose.No IV access, insert saline lock prior to the beginning of sedation, infusion, injection of imaging exam. Discontinue saline lock post exam. If Pt. has a central line or IVAD, may access for administration according to line specific nursing protocol. Once exam is complete flush line and de-access according to line specific nursing protocol in the CT contrast administration guidelines link. BUSPIRONE 7.5 MG TABLET 60 t* 5 04/16/2025 Class: Med Update Route: PO Sig: Take 2 tablets by mouth two times a day. Medications Discontinued During This Encounter Prescriptions - metoprolol succinate ER (TOPROL XL) 50 mg 24 hr tablet (Discontinued) Take 1 tablet by mouth once daily. - POTASSIUM ORAL (Discontinued) Take 20 mEq by mouth once daily. - amiodarone (PACERONE) 100 mg tablet (Discontinued) Take 1 tablet by mouth once daily. Per [facility]. - metoprolol succinate ER (TOPROL XL) 50 mg 24 hr tablet (Discontinued) Take 0.5 tablets by mouth once daily. - busPIRone (BUSPAR) 7.5 mg tablet (Discontinued) Take 1 tablet by mouth two times a day. Disposition: Return in about 3 weeks (around 05/07/2025) for with il for anxiety. Follow-up and Disposition History for Encounter Date Provider Department Center 04/16/2025 [id number]-RGGEHMCARL RENDONWS [facility] Encounter Status:Closed by CARL RENDON on 04/16/25 PROGRESS Observed: 04/10/2025 12:47 PM Status: COMPLETED Source: [facility] HNO ID: [id number] Author: BRENDA PAYAN MA Service: ? Author Type: Magnetic Resonance Technologist Type: Progress Notes Filed: 04/10/2025 20:57 Note Text: Scan on 04/10/2025 11:20 AM by Sanju Corey PA-C: Chemistry Scan on 04/10/2025 10:36 AM by Sanju Corey PA-C: Hematology Scan on 04/10/2025 3:03 PM by Sanju Corey PA-C: chest PA and Lateral PROGRESS Observed: 03/30/2025 2:54 PM Status: COMPLETED Source: [facility] HNO ID: [id number] Author: BRIT MÉNDEZ MA Service: ? Author Type: Magnetic Resonance Technologist Type: Progress Notes Filed: 03/30/2025 14:54 Note Text: Scan on 03/30/2025 8:53 AM by Provider, LANA Bills: MARI CNOV Observed: 03/13/2025 9:40 AM Status: COMPLETED Source: [facility] CHERYL ABARCA ([id number]) 1935 F Date Time Provider Department 03/13/25 9:40 AM [facility] During your visit today, we recorded the following information about you: Temperature Pulse Respiration Blood pressure 96.9 degrees 103/minute 16/minute 124/83 Weight 71.5 kg Dionna Uriarte PA-C 03/13/2025 11:15 AM Signed Chief Complaint Patient presents with: Blood Pressure Dizziness Short Of Breath HPI Cheryl Abarca is a 89 year old female who presents here today for Above Complaints.. Atrial Fibrillation: - Recent cardiology visit a few weeks ago; no medication changes were made. - Denies recent EKG at cardiology visit. - Reports episodes of elevated heart rate in the 100s, occurring multiple times on Wednesday without exertion. - Previous episodes of elevated heart rate up to 140 bpm. - History of metoprolol use, discontinued due to bradycardia. Dizziness and Fatigue: - Acute onset of dizziness and fatigue this morning at 06:30. - Symptoms began before using the bathroom and persisted afterward. - [place] dizzy when standing, sought relief by sitting in a chair and going outside. - Initial blood pressure reading at home was 205/100 mmHg. - Subsequent readings by nursing staff were 174/70 mmHg and 170/70 mmHg. - Current blood pressure is 124/83 mmHg, with a pulse in the 100s. Past medical history, appointments, medications, allergies reviewed. Previous Medical History PAST MEDICAL HISTORY Diagnosis Date Acute systolic CHF (congestive heart failure) (HCC) 01/04/2024 Echo 12/29/23. EF 50% Adjustment disorder with depressed mood 04/08/2005 Advance directive discussed with patient 12/15/2021 Discussed 11/2021 Carpal tunnel syndrome, bilateral 03/14/2020 Cervical radiculopathy 03/14/2020 Chronic bronchitis (HCC) 05/31/2014 Chronic systolic CHF (congestive heart failure) (HCC) 01/04/2024 Echo 12/29/23. EF 50% Common wart 01/30/2025 Left upper arm: excised 01/2025. DDD (degenerative disc disease), cervical 03/14/2020 Diverticulitis of colon (without mention of hemorrhage)(562.11) Essential hypertension, benign 01/06/2008 LIZZY (generalized anxiety disorder) 02/01/2024 [facility] for counseling. 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 PAST SURGICAL HISTORY OF Right 11/2024 right 2nd toe. PLC BREAST CLIP PERC Left breast TONSILLECTOMY PRIMARY/SECONDARY <AGE 12 Tonsillectomy Family History FAMILY HISTORY Problem Relation Age of Onset Prostate Cancer Father Psychiatry Mother Hypertension Mother Breast Cancer Maternal Grandmother Colon Cancer Maternal Grandfather Psychiatry Brother schizophrenic Arthritis Paternal Grandfather Rheumatoid Patient Allergies ALLERGIES Allergen Reactions Bactrim Ds [Sulfame* Rash Current Medications Current Outpatient Medications on File Prior to Visit Medication Sig venlafaxine ER (EFFEXOR XR) 150 mg 24 hr capsule Take 1 capsule by mouth once daily. latanoprost (XALATAN) 0.005 % ophthalmic solution 1 drop daily at bedtime. losartan (COZAAR) 100 mg tablet Take 1 tablet by mouth once daily. simvastatin (ZOCOR) 20 mg tablet Take 1 tablet by mouth daily at bedtime. busPIRone (BUSPAR) 7.5 mg tablet Take 1 tablet by mouth two times a day. calcium Carbonate 300 mg, 750mg, (TUMS) 300 mg (750 mg) chewable tablet Take 1 tablet by mouth two times a day. CHOLECALCIFEROL, VITAMIN D3, ORAL Take 2,000 Int'l Units/day by mouth once daily. amiodarone (PACERONE) 200 mg tablet Take 200 mg by mouth once daily. POTASSIUM ORAL Take 20 mEq by mouth once daily. furosemide (LASIX) 40 mg tablet Take 40 mg by mouth once daily. apixaban (ELIQUIS) 5 mg tab(s) Take 5 mg by mouth two times a day. No current facility-administered medications on file prior to visit. Social History SOCIAL HISTORY[1] Review of Symptoms REVIEW OF SYSTEMS SEE HPI EXAM: BP 124/83 Pulse 103 Temp 36.1 ?C (96.9 ?F) (Tympanic) Resp 16 Wt 71.5 kg (157 lb 9.6 oz) SpO2 97% BMI 27.92 kg/m? General Appearance: Well appearing, alert, in no acute distress, well-hydrated, well nourished.. Lungs: Lungs clear to auscultation. No wheezing, rhonchi, rales.. Heart: Irregular rhythm with normal rate. . Health Maintenance List DTaP,Tdap,Td Vaccine(4 - Td or Tdap) due on 01/08/2026 Influenza Vaccine(1) due on 03/26/2025 Depression Screening due on 01/08/2026 Medicare Annual Wellness Visit due on 01/08/2026 Diabetes Screening due on 01/07/2028 Bone Density Screening Completed Advance Directive Discussion Completed RSV Vaccine Completed Shingrix Vaccine Completed Pneumococcal Vaccine: 50+ Completed Data reviewed ECG: a.flutter vs a.fib. vent rate of 92. Assessment and Plan 1. Atrial flutter, unspecified type (HCC) (I48.92) 2. Paroxysmal atrial fibrillation (HCC) (I48.0) - Recent onset of symptoms this morning at 6:30 AM, including dizziness and fatigue; EKG showed atrial flutter with a heart rate of 92 bpm. - Recent cardiology evaluation weeks ago with no medication changes; no recent EKG performed. - Consulted with vice president digital strategist, Dr. Ta, by who recommended medication adjustments and follow-up. No ER needs at this time. - Discontinue amlodipine. - Start metoprolol. - Educated patient on the risks of atrial flutter and AFib, including clot formation and stroke; advised to seek immediate medical attention if symptoms worsen or if chest pain develops. - Follow-up with cardiology within the next week; patient instructed to call Dr. Ta's office today to schedule. 3. Essential hypertension, benign (I10) - Recent blood pressure readings: 205/100 mmHg at home, 174/70 mmHg after walking, 170 mmHg by nursing staff, and 124/83 mmHg in office. - Elevated blood pressure likely contributing to cardiac symptoms. - Discontinue amlodipine as per cardiology recommendation. - Start metoprolol to help manage both heart rate and blood pressure. Dionna Uriarte PA-C I spent a total of 50 minutes on the date of the service which included preparing to see the patient, [id number] patient care, completing clinical documentation, obtaining and/or reviewing separately obtained history, performing a medically appropriate examination, counseling and educating the patient/family/caregiver, ordering medications, tests, or procedures, and communicating results to the patient/family/caregiver. Recording using [employer] software for draft documentation of the visit was discussed with the patient/authorized service representative; all questions welcomed and answered. Patient/authorized service representative agreed to proceed [1] Social History Tobacco Use Smoking status: Former Current packs/day: 0.00 Types: Pipe, Cigarettes Start date: 01/07/2006 Quit date: 12/27/2023 Years since quittin.2 Smokeless tobacco: Never Tobacco comments: Used to smoke cigarettes. Vaping Use Vaping status: Never Used Substance Use Topics Alcohol use: Yes Comment: wine- 4-6 oz 5 times a week Drug use: No Dionna Uriarte PA-C 03/13/2025 9:29 AM Signed Stop amlodipine Start metoprolol 50mg XL once a day Schedule follow up with cardiology within the next week. NKECHI Bang-Alek Allergies As of Date: 03/13/2025 Noted Allergy Reaction BACTRIM DS (SULFAMETHOXAZOLE-TRIM*01/04/2008 2 - Rash Date Reviewed: 03/13/2025 Reviewed by: Brenda Payan MA - Fully Assessed Reason for Visit: Blood Pressure [15] Dizziness [36] Short Of Breath [2748] Primary Visit Diagnosis:Atrial flutter, unspecified type (HCC) [I48.92] Other Visit Diagnoses:Paroxysmal atrial fibrillation (HCC) [I48.0] Essential hypertension, benign [I10] Order(s):ECG COMPLETE [ECG01] Order #: [id number] ECG COMPLETE [ECG01] Order #: [id number]. #:[id number]--MDHJfto ECG COMPLETE [ECG01] Order #: [id number]. #:[id number]--MAXArqe metoprolol succinate ER (TOPROL XL) 50 mg 24 hr tabletTake 1 tablet by mouth once daily.Disp: 30 tabletRfl: 1 Prescriptions as of 03/13/2025 - metoprolol succinate ER (TOPROL XL) 50 mg 24 hr tablet Take 1 tablet by mouth once daily. - venlafaxine ER (EFFEXOR XR) 150 mg 24 hr capsule Take 1 capsule by mouth once daily. - latanoprost (XALATAN) 0.005 % ophthalmic solution 1 drop daily at bedtime. - losartan (COZAAR) 100 mg tablet Take 1 tablet by mouth once daily. - simvastatin (ZOCOR) 20 mg tablet Take 1 tablet by mouth daily at bedtime. - busPIRone (BUSPAR) 7.5 mg tablet Take 1 tablet by mouth two times a day. - calcium Carbonate 300 mg, 750mg, (TUMS) 300 mg (750 mg) chewable tablet Take 1 tablet by mouth two times a day. - CHOLECALCIFEROL, VITAMIN D3, ORAL Take 2,000 Int'l Units/day by mouth once daily. - amiodarone (PACERONE) 200 mg tablet Take 200 mg by mouth once daily. - POTASSIUM ORAL Take 20 mEq by mouth once daily. - furosemide (LASIX) 40 mg tablet Take 40 mg by mouth once daily. - apixaban (ELIQUIS) 5 mg tab(s) Take 5 mg by mouth two times a day. 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] 06/03/2015 Cervical radiculopathy [M54.12] 03/14/2020 DDD (degenerative disc disease), cervical [M50.*03/14/2020 Carpal tunnel syndrome, bilateral [G56.03] 03/14/2020 Medication management [Z79.899] 04/28/2021 Living will on file [[id number]] 12/15/2021 Advance directive discussed with patient [Z71.8*12/15/2021 Medicare annual wellness visit, subsequent [Z00*12/15/2021 Acute pain of right shoulder [M25.511] 12/19/2021 12/27/2023 Right hip pain [M25.551] 12/19/2021 Acute pain of both knees [M25.561, M25.562] 12/30/2022 12/27/2023 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 Paroxysmal atrial fibrillation (HCC) [I48.0] 01/04/2024 Chronic systolic CHF (congestive heart failure)*01/04/2024 half-way current use of anticoagulant therapy *01/04/2024 ILZZY (generalized anxiety disorder) [F41.1] 02/01/2024 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 Dionna Uriarte PA-C Prescriptions ordered this encounter Disp Refills Start End METOPROLOL SUCCINATE ER 50 MG TABLET* 30 t* 1 03/13/2025 Route: PO Sig: Take 1 tablet by mouth once daily. Medications Discontinued During This Encounter Prescriptions - amLODIPine (NORVASC) 5 mg tablet (Discontinued) Take 1 tablet by mouth once daily. Level of Service: OFFICE/OUTPATIENT ESTABLISHED [facility] 40 MIN [66962] Additional E/M codes: VISIT CPLX INHERENT EANDM ASSOC WITH MED * Encounter Status:Closed by DIONNA BROWN on 03/13/25 PROGRESS Observed: 03/13/2025 9:12 AM Status: [facility]PLETED [id number] Author: DIONNA URIARTE PA-C Service: ? Author Type: Physician Rib Trim Separator Type: Progress Notes Filed: 03/13/2025 11:15 Note Text: Chief Complaint Patient presents with: Blood Pressure Dizziness Short Of Breath HPI Cheryl Abarca is a 89 year old female who presents here today for Above Complaints.. Atrial Fibrillation: - Recent cardiology visit a few weeks ago; no medication changes were made. - Denies recent EKG at cardiology visit. - Reports episodes of elevated heart rate in the 100s, occurring multiple times on Wednesday without exertion. - Previous episodes of elevated heart rate up to 140 bpm. - History of metoprolol use, discontinued due to bradycardia. Dizziness and Fatigue: - Acute onset of dizziness and fatigue this morning at 06:30. - Symptoms began before using the bathroom and persisted afterward. - [place] dizzy when standing, sought relief by sitting in a chair and going outside. - Initial blood pressure reading at home was 205/100 mmHg. - Subsequent readings by nursing staff were 174/70 mmHg and 170/70 mmHg. - Current blood pressure is 124/83 mmHg, with a pulse in the 100s. Past medical history, appointments, medications, allergies reviewed. Previous Medical History PAST MEDICAL HISTORY Diagnosis Date Acute systolic CHF (congestive heart failure) (HCC) 01/04/2024 Echo 12/29/23. EF 50% Adjustment disorder with depressed mood 04/08/2005 Advance directive discussed with patient 12/15/2021 Discussed 11/2021 Carpal tunnel syndrome, bilateral 03/14/2020 Cervical radiculopathy 03/14/2020 Chronic bronchitis (HCC) 05/31/2014 Chronic systolic CHF (congestive heart failure) (HCC) 01/04/2024 Echo 12/29/23. EF 50% Common wart 01/30/2025 Left upper arm: excised 01/2025. DDD (degenerative disc disease), cervical 03/14/2020 Diverticulitis of colon (without mention of hemorrhage)(562.11) Essential hypertension, benign 01/06/2008 LIZZY (generalized anxiety disorder) 02/01/2024 [facility] for counseling. 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 PAST SURGICAL HISTORY OF Right 11/2024 right 2nd toe. PLC BREAST CLIP PERC Left breast TONSILLECTOMY PRIMARY/SECONDARY <AGE 14 Tonsillectomy Family History FAMILY HISTORY Problem Relation Age of Onset Prostate Cancer Father Psychiatry Mother Hypertension Mother Breast Cancer Maternal Grandmother Colon Cancer Maternal Grandfather Psychiatry Brother schizophrenic Arthritis Paternal Grandfather Rheumatoid Patient Allergies ALLERGIES Allergen Reactions Bactrim Ds [Sulfame* Rash Current Medications Current Outpatient Medications on File Prior to Visit Medication Sig venlafaxine ER (EFFEXOR XR) 150 mg 24 hr capsule Take 1 capsule by mouth once daily. latanoprost (XALATAN) 0.005 % ophthalmic solution 1 drop daily at bedtime. losartan (COZAAR) 100 mg tablet Take 1 tablet by mouth once daily. simvastatin (ZOCOR) 20 mg tablet Take 1 tablet by mouth daily at bedtime. busPIRone (BUSPAR) 7.5 mg tablet Take 1 tablet by mouth two times a day. calcium Carbonate 300 mg, 750mg, (TUMS) 300 mg (750 mg) chewable tablet Take 1 tablet by mouth two times a day. CHOLECALCIFEROL, VITAMIN D3, ORAL Take 2,000 Int'l Units/day by mouth once daily. amiodarone (PACERONE) 200 mg tablet Take 200 mg by mouth once daily. POTASSIUM ORAL Take 20 mEq by mouth once daily. furosemide (LASIX) 40 mg tablet Take 40 mg by mouth once daily. apixaban (ELIQUIS) 5 mg tab(s) Take 5 mg by mouth two times a day. No current facility-administered medications on file prior to visit. Social History SOCIAL HISTORY[1] Review of Symptoms REVIEW OF SYSTEMS SEE HPI EXAM: BP 124/83 Pulse 103 Temp 36.1 ?C (96.9 ?F) (Tympanic) Resp 16 Wt 71.5 kg (157 lb 9.6 oz) SpO2 97% BMI 27.92 kg/m? General Appearance: Well appearing, alert, in no acute distress, well-hydrated, well nourished.. Lungs: Lungs clear to auscultation. No wheezing, rhonchi, rales.. Heart: Irregular rhythm with normal rate. . Health Maintenance List DTaP,Tdap,Td Vaccine(4 - Td or Tdap) due on 01/08/2026 Influenza Vaccine(1) due on 03/26/2025 Depression Screening due on 01/08/2026 Medicare Annual Wellness Visit due on 01/08/2026 Diabetes Screening due on 01/07/2028 Bone Density Screening Completed Advance Directive Discussion Completed RSV Vaccine Completed Shingrix Vaccine Completed Pneumococcal Vaccine: 50+ Completed Data reviewed ECG: a.flutter vs a.fib. vent rate of 92. Assessment and Plan 1. Atrial flutter, unspecified type (HCC) (I48.92) 2. Paroxysmal atrial fibrillation (HCC) (I48.0) - Recent onset of symptoms this morning at 6:30 AM, including dizziness and fatigue; EKG showed atrial flutter with a heart rate of 92 bpm. - Recent cardiology evaluation weeks ago with no medication changes; no recent EKG performed. - Consulted with vice president digital strategist, Dr. Ta, by who recommended medication adjustments and follow-up. No ER needs at this time. - Discontinue amlodipine. - Start metoprolol. - Educated patient on the risks of atrial flutter and AFib, including clot formation and stroke; advised to seek immediate medical attention if symptoms worsen or if chest pain develops. - Follow-up with cardiology within the next week; patient instructed to call Dr. Ta's office today to schedule. 3. Essential hypertension, benign (I10) - Recent blood pressure readings: 205/100 mmHg at home, 174/70 mmHg after walking, 170 mmHg by nursing staff, and 124/83 mmHg in office. - Elevated blood pressure likely contributing to cardiac symptoms. - Discontinue amlodipine as per cardiology recommendation. - Start metoprolol to help manage both heart rate and blood pressure. Dionna Uriarte PA-C I spent a total of 50 minutes on the date of the service which included preparing to see the patient, [id number] patient care, completing clinical documentation, obtaining and/or reviewing separately obtained history, performing a medically appropriate examination, counseling and educating the patient/family/caregiver, ordering medications, tests, or procedures, and communicating results to the patient/family/caregiver. Recording using [employer] software for draft documentation of the visit was discussed with the patient/authorized service representative; all questions welcomed and answered. Patient/authorized service representative agreed to proceed [1] Social History Tobacco Use Smoking status: Former Current packs/day: 0.00 Types: Pipe, Cigarettes Start date: 01/07/2006 Quit date: 12/27/2023 Years since quittin.2 Smokeless tobacco: Never Tobacco comments: Used to smoke cigarettes. Vaping Use Vaping status: Never Used Substance Use Topics Alcohol use: Yes Comment: wine- 4-6 oz 5 times a week Drug use: No ECG01 Observed: 03/13/2025 9:05 AM Status: F Source: [facility] Ventricular Rate : 88 BPM QRS Duration : 136 ms Q-T Interval : 432 ms QTC Calculation(Bazett) : 522 ms Calculated R Pony : -21 degrees Calculated T Pony : 127 degrees ATRIAL FIBRILLATION / Atrial Tachycardia COMPLETE LEFT BUNDLE BRANCH BLOCK ABNORMAL ECG Confirmed by MD PERES QARAB ([id number]) on 03/14/2025 11:26:37 AM NAME : CHERYL ABARCA PID : [id number] : 1935 Gender : Female Race : ORD : Procedure Date : Mar 13 2025 09:05:34 Edit Date : Mar 14 2025 11:26:42 Diagnosis: ATRIAL FIBRILLATION / Atrial Tachycardia COMPLETE LEFT BUNDLE BRANCH BLOCK ABNORMAL ECG Confirmed by MD PERES QARAB ([id number]) on 03/14/2025 11:26:37 AM Test Reason : Location : 136 : [facility] Overread By : MD PERES QARAB Edited By : MD PERES QARAB Referred By : Dionna Uriarte Acquired by : estephania payan ma, PROGRESS Observed: 02/20/2025 11:40 AM Status: COMPLETED Source: [facility] HNO ID: [id number] Author: BRIT MÉNDEZ MA Service: ? Author Type: LICENSED NURSE Type: Progress Notes Filed: 02/20/2025 16:36 Note Text: Scan on 02/20/2025 11:05 AM by Provider, LANA Bills: Consultation - Cardiology Labs: View External Labs - BMP [ID [id number]] CNNURSE Observed: 02/07/2025 9:15 AM Status: COMPLETED Source: [facility] Nurse Visit (FAMPWS) CHERYL ABARCA Alla ([id number]) 1935 F Date Time Provider Department 02/07/25 9:15 AM PA NURSE FAMPWS During your visit today, we recorded the following information about you: ANA LEIGH 02/07/2025 9:12 AM Signed Patient presents for suture removal per Dr Rendon. Pt denies any pain, redness, swelling, or drainage from incision site. Removed 3 sutures at this time without difficulty. Incision healing and well approximated. No redness, drainage, pain, or swelling noted. Pt tolerated procedure well. Ana Leigh LPN Allergies As of Date: 02/07/2025 Noted Allergy Reaction BACTRIM DS (SULFAMETHOXAZOLE-TRIM*01/04/2008 2 - Rash Date Reviewed: 02/05/2025 Reviewed by: Gabbi Carreno LPN - Fully Assessed Reason for Visit: Suture Removal [105] Primary Visit Diagnosis:Common wart [B07.8] Prescriptions as of 02/07/2025 - ketoconazole (NIZORAL) 2 % shampoo Apply to affected area two times a week for 10 days. - triamcinolone acetonide (KENALOG) 0.1 % cream Apply to affected area two times a day for 5 days. - latanoprost (XALATAN) 0.005 % ophthalmic solution 1 drop daily at bedtime. - losartan (COZAAR) 100 mg tablet Take 1 tablet by mouth once daily. - simvastatin (ZOCOR) 20 mg tablet Take 1 tablet by mouth daily at bedtime. - busPIRone (BUSPAR) 7.5 mg tablet Take 1 tablet by mouth two times a day. - amLODIPine (NORVASC) 5 mg tablet Take 1 tablet by mouth once daily. - venlafaxine ER (EFFEXOR XR) 150 mg 24 hr capsule Take 1 capsule by mouth once daily. - calcium Carbonate 300 mg, 750mg, (TUMS) 300 mg (750 mg) chewable tablet Take 1 tablet by mouth two times a day. - CHOLECALCIFEROL, VITAMIN D3, ORAL Take 2,000 Int'l Units/day by mouth once daily. - amiodarone (PACERONE) 200 mg tablet Take 200 mg by mouth once daily. - POTASSIUM ORAL Take 20 mEq by mouth once daily. - furosemide (LASIX) 40 mg tablet Take 40 mg by mouth once daily. - apixaban (ELIQUIS) 5 mg tab(s) Take 5 mg by mouth two times a day. 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] 06/03/2015 Cervical radiculopathy [M54.12] 03/14/2020 DDD (degenerative disc disease), cervical [M50.*03/14/2020 Carpal tunnel syndrome, bilateral [G56.03] 03/14/2020 Medication management [Z79.899] 04/28/2021 Living will on file [[id number]] 12/15/2021 Advance directive discussed with patient [Z71.8*12/15/2021 Medicare annual wellness visit, subsequent [Z00*12/15/2021 Acute pain of right shoulder [M25.511] 12/19/2021 12/27/2023 Right hip pain [M25.551] 12/19/2021 Acute pain of both knees [M25.561, M25.562] 12/30/2022 12/27/2023 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 Paroxysmal atrial fibrillation (HCC) [I48.0] 01/04/2024 Chronic systolic CHF (congestive heart failure)*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 Service: ? Author Type: LICENSED NURSE Type: Progress Notes Filed: 02/07/2025 09:12 Note Text: Patient presents for suture removal per Dr Rendon. Pt denies any pain, redness, swelling, or drainage from incision site. Removed 3 sutures at this time without difficulty. Incision healing and well approximated. No redness, drainage, pain, or swelling noted. Pt tolerated procedure well. Ana Leigh LPN PROGRESS Observed: 02/05/2025 12:12 PM Status: COMPLETED Source: [facility] HNO ID: [id number] Author: OMARI NAVAS APRN.SHINGLES ROOFER Service: ? Author Type: Nurse Practitioner Type: Progress Notes Filed: 02/05/2025 12:24 Note Text: [facility] Subjective HPI HPI Cheryl Abarca is a 89 year old female who presents today for CC of itchy rash on arms. This started 1 day ago. Has tried nothing for relief. Symptoms are worsened by nothing known. Risk factors recently moving potted plants. Denies fever. Has had itchy scalp on/off for months. Denies rash or change in creams/shampoo. .Patient presents with: Rash: Rash on arm and leg x 1 day and scalp itches PAST MEDICAL HISTORY Diagnosis Date Acute systolic CHF (congestive heart failure) (HCC) 01/04/2024 Echo 12/29/23. EF 50% Adjustment disorder with depressed mood 04/08/2005 Advance directive discussed with patient 12/15/2021 Discussed 11/2021 Carpal tunnel syndrome, bilateral 03/14/2020 Cervical radiculopathy 03/14/2020 Chronic bronchitis (HCC) 05/31/2014 Chronic systolic CHF (congestive heart failure) (HCC) 01/04/2024 Echo 12/29/23. EF 50% Common wart 01/30/2025 Left upper arm: excised 01/2025. DDD (degenerative disc disease), cervical 03/14/2020 Diverticulitis of colon (without mention of hemorrhage)(562.11) Essential hypertension, benign 01/06/2008 LIZZY (generalized anxiety disorder) 02/01/2024 [facility] for counseling. 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 PAST SURGICAL HISTORY OF Right 11/2024 right 2nd toe. PLC BREAST CLIP PERC Left breast TONSILLECTOMY PRIMARY/SECONDARY <AGE 14 Tonsillectomy ALLERGIES Bactrim Ds [Sulfamethoxazole-Trimethoprim] MEDICATIONS ketoconazole (NIZORAL) 2 % shampoo Apply to affected area two times a week for 10 days. triamcinolone acetonide (KENALOG) 0.1 % cream Apply to affected area two times a day for 5 days. latanoprost (XALATAN) 0.005 % ophthalmic solution 1 drop daily at bedtime. losartan (COZAAR) 100 mg tablet Take 1 tablet by mouth once daily. simvastatin (ZOCOR) 20 mg tablet Take 1 tablet by mouth daily at bedtime. busPIRone (BUSPAR) 7.5 mg tablet Take 1 tablet by mouth two times a day. amLODIPine (NORVASC) 5 mg tablet Take 1 tablet by mouth once daily. venlafaxine ER (EFFEXOR XR) 150 mg 24 hr capsule Take 1 capsule by mouth once daily. calcium Carbonate 300 mg, 750mg, (TUMS) 300 mg (750 mg) chewable tablet Take 1 tablet by mouth two times a day. CHOLECALCIFEROL, VITAMIN D3, ORAL Take 2,000 Int'l Units/day by mouth once daily. amiodarone (PACERONE) 200 mg tablet Take 200 mg by mouth once daily. POTASSIUM ORAL Take 20 mEq by mouth once daily. furosemide (LASIX) 40 mg tablet Take 40 mg by mouth once daily. apixaban (ELIQUIS) 5 mg tab(s) Take 5 mg by mouth two times a day. FAMILY HISTORY Problem Relation Age of Onset Prostate Cancer Father Psychiatry Mother Hypertension Mother Breast Cancer Maternal Grandmother Colon Cancer Maternal Grandfather Psychiatry Brother schizophrenic Arthritis Paternal Grandfather Rheumatoid Social History Tobacco Use Smoking status: Former Current packs/day: 0.00 Types: Pipe, Cigarettes Start date: 01/07/2006 Quit date: 12/27/2023 Years since quittin.1 Smokeless tobacco: Never Tobacco comments: Used to smoke cigarettes. Vaping Use Vaping status: Never Used Substance Use Topics Alcohol use: Yes Comment: wine- 4-6 oz 5 times a week Drug use: No Review of Systems Objective BP 128/78 Pulse 65 Temp 36.9 ?C (98.5 ?F) (Tympanic) Resp 18 Wt 71.7 kg (158 lb 1.1 oz) SpO2 97% BMI 28.00 kg/m? Physical Exam Constitutional: General: She is not in acute distress. Appearance: She is not toxic-appearing or diaphoretic. HENT: Head: Normocephalic and atraumatic. Pulmonary: Effort: Pulmonary effort is normal. No accessory muscle usage or respiratory distress. Skin: Neurological: Mental Status: She is alert and oriented to person, place, and time. {ASSESSMENT/PLAN: 1. Itchy scalp - ICD9: 698.9, ICD10: L29.9 (primary diagnosis) -use medication as prescribed -follow up if symptoms persist, worsen, change - with dermatology This is a chronic issue - KETOCONAZOLE 2 % SHAMPOO 2. Rash - ICD9: 782.1, ICD10: R21 Insect bites vs contact derm -use medication as prescribed -follow up if symptoms persist, worsen, change - TRIAMCINOLONE ACETONIDE 0.1 % TOPICAL CREAM Omari Navas APRN.SHINGLES ROOFER History and Record Review External record(s) reviewed: prior outpatient record. Disposition The patient was discharged. Procedures CNOV Observed: 02/05/2025 11:45 AM Status: COMPLETED Source: [facility] Office Visit ([facility]) CHERYL ABARCA ([id number]) 1935 F Date Time Provider Department 02/05/25 11:45 AM OMARI NAVAS During your visit today, we recorded the following information about you: Temperature Pulse Respiration Blood pressure 98.5 degrees 65/minute 18/minute 128/78 Weight 71.7 kg Omari Navas APRN.SHINGLES ROOFER 02/05/2025 12:24 PM Signed [facility] Subjective HPI HPI Cheryl Abarca is a 89 year old female who presents today for CC of itchy rash on arms. This started 1 day ago. Has tried nothing for relief. Symptoms are worsened by nothing known. Risk factors recently moving potted plants. Denies fever. Has had itchy scalp on/off for months. Denies rash or change in creams/shampoo. .Patient presents with: Rash: Rash on arm and leg x 1 day and scalp itches PAST MEDICAL HISTORY Diagnosis Date Acute systolic CHF (congestive heart failure) (HCC) 01/04/2024 Echo 12/29/23. EF 50% Adjustment disorder with depressed mood 04/08/2005 Advance directive discussed with patient 12/15/2021 Discussed 11/2021 Carpal tunnel syndrome, bilateral 03/14/2020 Cervical radiculopathy 03/14/2020 Chronic bronchitis (HCC) 05/31/2014 Chronic systolic CHF (congestive heart failure) (HCC) 01/04/2024 Echo 12/29/23. EF 50% Common wart 01/30/2025 Left upper arm: excised 01/2025. DDD (degenerative disc disease), cervical 03/14/2020 Diverticulitis of colon (without mention of hemorrhage)(562.11) Essential hypertension, benign 01/06/2008 LIZZY (generalized anxiety disorder) 02/01/2024 [facility] for counseling. 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 PAST SURGICAL HISTORY OF Right 11/2024 right 2nd toe. PLC BREAST CLIP PERC Left breast TONSILLECTOMY PRIMARY/SECONDARY <AGE 14 Tonsillectomy ALLERGIES Bactrim Ds [Sulfamethoxazole-Trimethoprim] MEDICATIONS ketoconazole (NIZORAL) 2 % shampoo Apply to affected area two times a week for 10 days. triamcinolone acetonide (KENALOG) 0.1 % cream Apply to affected area two times a day for 5 days. latanoprost (XALATAN) 0.005 % ophthalmic solution 1 drop daily at bedtime. losartan (COZAAR) 100 mg tablet Take 1 tablet by mouth once daily. simvastatin (ZOCOR) 20 mg tablet Take 1 tablet by mouth daily at bedtime. busPIRone (BUSPAR) 7.5 mg tablet Take 1 tablet by mouth two times a day. amLODIPine (NORVASC) 5 mg tablet Take 1 tablet by mouth once daily. venlafaxine ER (EFFEXOR XR) 150 mg 24 hr capsule Take 1 capsule by mouth once daily. calcium Carbonate 300 mg, 750mg, (TUMS) 300 mg (750 mg) chewable tablet Take 1 tablet by mouth two times a day. CHOLECALCIFEROL, VITAMIN D3, ORAL Take 2,000 Int'l Units/day by mouth once daily. amiodarone (PACERONE) 200 mg tablet Take 200 mg by mouth once daily. POTASSIUM ORAL Take 20 mEq by mouth once daily. furosemide (LASIX) 40 mg tablet Take 40 mg by mouth once daily. apixaban (ELIQUIS) 5 mg tab(s) Take 5 mg by mouth two times a day. FAMILY HISTORY Problem Relation Age of Onset Prostate Cancer Father Psychiatry Mother Hypertension Mother Breast Cancer Maternal Grandmother Colon Cancer Maternal Grandfather Psychiatry Brother schizophrenic Arthritis Paternal Grandfather Rheumatoid Social History Tobacco Use Smoking status: Former Current packs/day: 0.00 Types: Pipe, Cigarettes Start date: 01/07/2006 Quit date: 12/27/2023 Years since quittin.1 Smokeless tobacco: Never Tobacco comments: Used to smoke cigarettes. Vaping Use Vaping status: Never Used Substance Use Topics Alcohol use: Yes Comment: wine- 4-6 oz 5 times a week Drug use: No Review of Systems Objective BP 128/78 Pulse 65 Temp 36.9 ?C (98.5 ?F) (Tympanic) Resp 18 Wt 71.7 kg (158 lb 1.1 oz) SpO2 97% BMI 28.00 kg/m? Physical Exam Constitutional: General: She is not in acute distress. Appearance: She is not toxic-appearing or diaphoretic. HENT: Head: Normocephalic and atraumatic. Pulmonary: Effort: Pulmonary effort is normal. No accessory muscle usage or respiratory distress. Skin: Neurological: Mental Status: She is alert and oriented to person, place, and time. {ASSESSMENT/PLAN: 1. Itchy scalp - ICD9: 698.9, ICD10: L29.9 (primary diagnosis) -use medication as prescribed -follow up if symptoms persist, worsen, change - with dermatology This is a chronic issue - KETOCONAZOLE 2 % SHAMPOO 2. Rash - ICD9: 782.1, ICD10: R21 Insect bites vs contact derm -use medication as prescribed -follow up if symptoms persist, worsen, change - TRIAMCINOLONE ACETONIDE 0.1 % TOPICAL CREAM Omari Navas APRN.SHINGLES ROOFER History and Record Review External record(s) reviewed: prior outpatient record. Disposition The patient was discharged. Procedures Allergies As of Date: 02/05/2025 Noted Allergy Reaction BACTRIM DS (SULFAMETHOXAZOLE-TRIM*01/04/2008 2 - Rash Date Reviewed: 02/05/2025 Reviewed by: Gabbi Carreno LPN - Fully Assessed Reason for Visit: Rash [1087] Cmt: Rash on arm and leg x 1 day and scalp itches Primary Visit Diagnosis:Itchy scalp [L29.9] Other Visit Diagnosis:Rash [R21] Order(s):ketoconazole (NIZORAL) 2 % shampooApply to affected area two times a week for 10 days.Disp: 120 mLRfl: 1 triamcinolone acetonide (KENALOG) 0.1 % creamApply to affected area two times a day for 5 days.Disp: 80 gRfl: 0 Prescriptions as of 02/05/2025 - ketoconazole (NIZORAL) 2 % shampoo Apply to affected area two times a week for 10 days. - triamcinolone acetonide (KENALOG) 0.1 % cream Apply to affected area two times a day for 5 days. - latanoprost (XALATAN) 0.005 % ophthalmic solution 1 drop daily at bedtime. - losartan (COZAAR) 100 mg tablet Take 1 tablet by mouth once daily. - simvastatin (ZOCOR) 20 mg tablet Take 1 tablet by mouth daily at bedtime. - busPIRone (BUSPAR) 7.5 mg tablet Take 1 tablet by mouth two times a day. - amLODIPine (NORVASC) 5 mg tablet Take 1 tablet by mouth once daily. - venlafaxine ER (EFFEXOR XR) 150 mg 24 hr capsule Take 1 capsule by mouth once daily. - calcium Carbonate 300 mg, 750mg, (TUMS) 300 mg (750 mg) chewable tablet Take 1 tablet by mouth two times a day. - CHOLECALCIFEROL, VITAMIN D3, ORAL Take 2,000 Int'l Units/day by mouth once daily. - amiodarone (PACERONE) 200 mg tablet Take 200 mg by mouth once daily. - POTASSIUM ORAL Take 20 mEq by mouth once daily. - furosemide (LASIX) 40 mg tablet Take 40 mg by mouth once daily. - apixaban (ELIQUIS) 5 mg tab(s) Take 5 mg by mouth two times a day. Problem List As Of Date 02/05/2025 Noted Resolved Iron deficiency anemia [D50.9] 04/08/2005 06/03/2015 Adjustment disorder with depressed mood [F43.21]04/08/2005 Essential hypertension, benign [I10] 01/06/2008 Hyperlipidemia, mixed [E78.2] 03/30/2012 Supraspinatus tendonitis [M75.90] 06/13/2013 06/04/2016 Sleep apnea [G47.30] 06/13/2013 Smoker [F17.200] 06/13/2013 Vasomotor rhinitis [J30.0] 06/03/2015 Cervical radiculopathy [M54.12] 03/14/2020 DDD (degenerative disc disease), cervical [M50.*03/14/2020 Carpal tunnel syndrome, bilateral [G56.03] 03/14/2020 Medication management [Z79.899] 04/28/2021 Living will on file [[id number]] 12/15/2021 Advance directive discussed with patient [Z71.8*12/15/2021 Medicare annual wellness visit, subsequent [Z00*12/15/2021 Acute pain of right shoulder [M25.511] 12/19/2021 12/27/2023 Right hip pain [M25.551] 12/19/2021 Acute pain of both knees [M25.561, M25.562] 12/30/2022 12/27/2023 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 Paroxysmal atrial fibrillation (HCC) [I48.0] 01/04/2024 Chronic 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 TRIAMCINOLONE ACETONIDE 0.1 % TOPICA* 80 g 0 02/05/2025 02/10/2025 Route: TOP Sig: Apply to affected area two times a day for 5 days. Encounter Status:Closed by OMARI NAVAS on 02/05/25 TISS PATH BX REPORT Collected: 01/26/20 10:52 AM Status: F Source: [facility] Order Comment: Specimen Type : TISSUE SPECIMEN Ordering Facility: [facility] Address: [address] [place] [address] TYPE CODE TESTS RESULT OUT OF RANGE REFERENCE UNITS PATHOLOGY [id number] CASE REPORT Result Comment: Surgical Pat hology Report Case: [id number] Authorizing Provider: Carl Rendon MD Collected: 01/25/2025 10:52 AM Ordering Location: [facility] Received: 01/25/2025 02:49 PM Pathologist: Hugh Lin MD Specimen: Skin, Excision PATHOLOGY [id number] FINAL DIAGNOSIS Result Comment: A. Skin, lef t upper lateral arm, excision: - Verruca vulgaris. SDB/EROS 01/29/25 at 1402 EDT PATHOLOGY [id number] GROSS DESCRIPTION Result Comment: A. Skin, Exc ision Received in formalin is an unoriented elliptical segment of skin and subcutaneous tissue measuring 1.4 x 0.8 x 0.6 cm. The skin surface demonstrates an irregular loving-white elevated area measuring 0.9 x 0.8 cm, and extends to both margins. The margins are inked black. The specimen is sectioned and totally submitted as follows: A1 tips, A2 remainder of tissue. Gross examination performed at [facility], [address] [place] [address] FFS 01/25/2025 11:32 PM PATHOLOGY CDX2 CLINICAL HISTORY abnormal lesion left upper lateral arm. R/O SCC vs BCC possible wart PATHOLOGY [facility] FINAL PERFORMING LAB Result Comment: Diagnostic i nterpretation performed at: [facility], [address] [place] [address], Desk [address] [address] CLIA# [id number] Regulatory Submissions Specialist: Jaydon Lockett MD PATHOLOGY [id number] AP DISCLAIMER Result Comment: Laboratory D eveloped Test (LDT) Disclaimer: Performance characteristics of immunohistochemical, immunofluorescent, and chromogenic in-situ hybridization tests have been determined by the performing laboratory within [facility]'s [facility]ology and Laboratory Medicine Department ([facility], [facility], [facility], [facility], [facility], [facility], [facility], or [facility]) in a manner consistent with CLIA requirements. One or more of these tests may not have been cleared or approved by the FDA. [facility] is regulated under CLIA as qualified to perform high-complexity testing. These tests are used for clinical purposes. These should not be regarded as investigational or for research. Positive and negative controls stain appropriately. Performed By: #### [id number] # ### [facility] CLIA [id number] [address] [place] [address] OF JORDYN PROCEDURE Observed: 01/25/2025 9:44 AM Status: COMPLETED Source: [facility] HNO ID: [id number] Author: CARL RENDON MD Service: ? Author Type: Physician Type: Procedures Filed: 01/30/2025 23:24 Note Text: UNIVERSAL PROTOCOL / SAFETY CHECKLIST Procedure to be Performed: excisional biopsy Sign In: A Moment of CARE was completed. Appropriate PPE (Personal Protective Equipment) worn by all providers involved with the procedure. Special equipment utilized Electrocaughtery. Patient/Surrogate Stated/Verified: Patient name, Date of , Relevant allergies, and The intended procedure Time Out: Relevant labs, photos, and/or imaging studies are not applicable. Intended patient and procedure match the source document(s) (e.g. consent, HANDP, associated studies [imaging, pathology]) match the intended patient and procedure. Consent obtained and matches the intended procedure. Yes. Correct side/site has been marked and visible. Medications required for this procedure are verified. Fire risk assessed and interventions discussed. Implants: are not applicable. Sign Out: Specimens are all correctly labeled and sent. All instruments, equipment, possible retained foreign bodies are accounted for. Yes. The post-procedure plan of care has been communicated to the patient or surrogate. Area was cleansed with betadine and alcohol and then anesthetized with 0.5% lido with Epi at 1:200,000. The area was draped in normal sterile fashion. The lesion was excised in an elliptical pattern using a #15 blade. Electrocaughtery set at 28 was used to aid in hemostasis. The edges were brought together with 3-0 Ethilon with 4-5 interrupted mattress sutures. The area was cleansed and then antibiotic ointment and a sterile dressing were applied. Patient tolerated well with minimal blood loss. Lesion: 1.4 cm x 0.8 cm PROGRESS Observed: 01/25/2025 9:07 AM Status: COMPLETED Source: [facility] HNO ID: [id number] Author: CARL RENDON MD Service: ? Author Type: Physician Type: Progress Notes Filed: 01/30/2025 23:24 Note Text: Chief Complaint Patient presents with: Procedure: Lesion removal HPI Cheryl Abarca is a 89 year old female who presents here today for a lesion removal on left upper arm. Recently treated with Augmentin 875-125 mg 1 tab po bid for 2 weeks for toe issue by Dr. Calderon. Has completed abx, and has follow up today. Has a lesion of the left upper arm that scabs and then she picks at it. Noticed in in the last 6-12 months. Never resolves. Not tender or itchy. Past medical history, appointments, medications, allergies reviewed. Previous Medical History PAST MEDICAL HISTORY Diagnosis Date Acute systolic CHF (congestive heart failure) (HCC) 01/04/2024 Echo 12/29/23. EF 50% Adjustment disorder with depressed mood 04/08/2005 Advance directive discussed with patient 12/15/2021 Discussed 11/2021 Carpal tunnel syndrome, bilateral 03/14/2020 Cervical radiculopathy 03/14/2020 Chronic bronchitis (HCC) 05/31/2014 Chronic systolic CHF (congestive heart failure) (HCC) 01/04/2024 Echo 12/29/23. EF 50% DDD (degenerative disc disease), cervical 03/14/2020 Diverticulitis of colon (without mention of hemorrhage)(562.11) Essential hypertension, benign 01/06/2008 LIZZY (generalized anxiety disorder) 02/01/2024 [facility] for counseling. 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 PAST SURGICAL HISTORY OF Right 11/2024 right 2nd toe. PLC BREAST CLIP PERC Left breast TONSILLECTOMY PRIMARY/SECONDARY <AGE 14 Tonsillectomy Family History FAMILY HISTORY Problem Relation Age of Onset Prostate Cancer Father Psychiatry Mother Hypertension Mother Breast Cancer Maternal Grandmother Colon Cancer Maternal Grandfather Psychiatry Brother schizophrenic Arthritis Paternal Grandfather Rheumatoid Patient Allergies ALLERGIES Allergen Reactions Bactrim Ds [Sulfame* Rash Current Medications Current Outpatient Medications on File Prior to Visit Medication Sig latanoprost (XALATAN) 0.005 % ophthalmic solution 1 drop daily at bedtime. losartan (COZAAR) 100 mg tablet Take 1 tablet by mouth once daily. simvastatin (ZOCOR) 20 mg tablet Take 1 tablet by mouth daily at bedtime. busPIRone (BUSPAR) 7.5 mg tablet Take 1 tablet by mouth two times a day. amLODIPine (NORVASC) 5 mg tablet Take 1 tablet by mouth once daily. venlafaxine ER (EFFEXOR XR) 150 mg 24 hr capsule Take 1 capsule by mouth once daily. calcium Carbonate 300 mg, 750mg, (TUMS) 300 mg (750 mg) chewable tablet Take 1 tablet by mouth two times a day. CHOLECALCIFEROL, VITAMIN D3, ORAL Take 2,000 Int'l Units/day by mouth once daily. amiodarone (PACERONE) 200 mg tablet Take 200 mg by mouth once daily. POTASSIUM ORAL Take 20 mEq by mouth once daily. furosemide (LASIX) 40 mg tablet Take 40 mg by mouth once daily. apixaban (ELIQUIS) 5 mg tab(s) Take 5 mg by mouth two times a day. No current facility-administered medications on file prior to visit. Social History Social History Tobacco Use Smoking status: Former Current packs/day: 0.00 Types: Pipe, Cigarettes Start date: 01/07/2006 Quit date: 12/27/2023 Years since quittin.0 Smokeless tobacco: Never Tobacco comments: Used to smoke cigarettes. Vaping Use Vaping status: Never Used Substance Use Topics Alcohol use: Yes Comment: wine- 4-6 oz 5 times a week Drug use: No Review of Symptoms REVIEW OF SYSTEMS SEE HPI EXAM: BP 130/76 (BP Site: Left Arm, BP Position: Sitting, BP Cuff Size: Regular Adult) Pulse (!) 56 Resp 16 Wt 71.1 kg (156 lb 12.8 oz) BMI 27.78 kg/m? General Appearance: Well appearing, alert, in no acute distress, well-hydrated, well nourished.. Skin: Has a irritated growth on the left upper arm suspicious for SCC or BCC. . Health Maintenance List DTaP,Tdap,Td Vaccine(4 - Td or Tdap) due on 01/08/2026 Covid-19 Vaccine( season) due on 01/08/2026 Influenza Vaccine(1) due on 03/26/2025 Depression Screening due on 01/08/2026 Medicare Annual Wellness Visit due on 01/08/2026 Diabetes Screening due on 01/07/2028 Bone Density Screening Completed Advance Directive Discussion Completed RSV Vaccine Completed Shingrix Vaccine Completed Pneumococcal Vaccine: 50+ Completed Data reviewed Assessment and Plan ASSESSMENT/PLAN: 1. 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 - consent obtained. - SURGICAL PATHOLOGY Patient given care sheet. F/u 12-14 days suture removal or sooner if needed as discussed. Carl Rendon MD CNOV Observed: 01/25/2025 9:00 AM Status: COMPLETED Source: [facility] CHERYL ABAR[facility] ([id number]) 1935 F Date Time Provider Department 01/25/25 9:00 AM CARL RENDON During your visit today, we recorded the following information about you: Pulse Respiration Blood pressure Weight 56/minute 16/minute 130/76 71.1 kg Carl Rendon MD 01/30/2025 11:24 PM Signed Chief Complaint Patient presents with: Procedure: Lesion removal HPI Cheryl Abarca is a 89 year old female who presents here today for a lesion removal on left upper arm. Recently treated with Augmentin 875-125 mg 1 tab po bid for 2 weeks for toe issue by Dr. Calderon. Has completed abx, and has follow up today. Has a lesion of the left upper arm that scabs and then she picks at it. Noticed in in the last 6-12 months. Never resolves. Not tender or itchy. Past medical history, appointments, medications, allergies reviewed. Previous Medical History PAST MEDICAL HISTORY Diagnosis Date Acute systolic CHF (congestive heart failure) ([facility]) 01/04/2024 Echo 12/29/23. EF 50% Adjustment disorder with depressed mood 04/08/2005 Advance directive discussed with patient 12/15/2021 Discussed 11/2021 Carpal tunnel syndrome, bilateral 03/14/2020 Cervical radiculopathy 03/14/2020 Chronic bronchitis (HCC) 05/31/2014 Chronic systolic CHF (congestive heart failure) ([facility]) 01/04/2024 Echo 12/29/23. EF 50% DDD (degenerative disc disease), cervical 03/14/2020 Diverticulitis of colon (without mention of hemorrhage)(562.11) Essential hypertension, benign 01/06/2008 LIZZY (generalized anxiety disorder) 02/01/2024 [facility] for counseling. 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 PAST SURGICAL HISTORY OF Right 11/2024 right 2nd toe. PLC BREAST CLIP PERC Left breast TONSILLECTOMY PRIMARY/SECONDARY <AGE 14 Tonsillectomy Family History FAMILY HISTORY Problem Relation Age of Onset Prostate Cancer Father Psychiatry Mother Hypertension Mother Breast Cancer Maternal Grandmother Colon Cancer Maternal Grandfather Psychiatry Brother schizophrenic Arthritis Paternal Grandfather Rheumatoid Patient Allergies ALLERGIES Allergen Reactions Bactrim Ds [Sulfame* Rash Current Medications Current Outpatient Medications on File Prior to Visit Medication Sig latanoprost (XALATAN) 0.005 % ophthalmic solution 1 drop daily at bedtime. losartan (COZAAR) 100 mg tablet Take 1 tablet by mouth once daily. simvastatin (ZOCOR) 20 mg tablet Take 1 tablet by mouth daily at bedtime. busPIRone (BUSPAR) 7.5 mg tablet Take 1 tablet by mouth two times a day. amLODIPine (NORVASC) 5 mg tablet Take 1 tablet by mouth once daily. venlafaxine ER (EFFEXOR XR) 150 mg 24 hr capsule Take 1 capsule by mouth once daily. calcium Carbonate 300 mg, 750mg, (TUMS) 300 mg (750 mg) chewable tablet Take 1 tablet by mouth two times a day. CHOLECALCIFEROL, VITAMIN D3, ORAL Take 2,000 Int'l Units/day by mouth once daily. amiodarone (PACERONE) 200 mg tablet Take 200 mg by mouth once daily. POTASSIUM ORAL Take 20 mEq by mouth once daily. furosemide (LASIX) 40 mg tablet Take 40 mg by mouth once daily. apixaban (ELIQUIS) 5 mg tab(s) Take 5 mg by mouth two times a day. No current facility-administered medications on file prior to visit. Social History Social History Tobacco Use Smoking status: Former Current packs/day: 0.00 Types: Pipe, Cigarettes Start date: 01/07/2006 Quit date: 12/27/2023 Years since quittin.0 Smokeless tobacco: Never Tobacco comments: Used to smoke cigarettes. Vaping Use Vaping status: Never Used Substance Use Topics Alcohol use: Yes Comment: wine- 4-6 oz 5 times a week Drug use: No Review of Symptoms REVIEW OF SYSTEMS SEE HPI EXAM: BP 130/76 (BP Site: Left Arm, BP Position: Sitting, BP Cuff Size: Regular Adult) Pulse (!) 56 Resp 16 Wt 71.1 kg (156 lb 12.8 oz) BMI 27.78 kg/m? General Appearance: Well appearing, alert, in no acute distress, well-hydrated, well nourished.. Skin: Has a irritated growth on the left upper arm suspicious for SCC or BCC. . Health Maintenance List DTaP,Tdap,Td Vaccine(4 - Td or Tdap) due on 01/08/2026 Covid-19 Vaccine(2023- season) due on 01/08/2026 Influenza Vaccine(1) due on 03/26/2025 Depression Screening due on 01/08/2026 Medicare Annual Wellness Visit due on 01/08/2026 Diabetes Screening due on 01/07/2028 Bone Density Screening Completed Advance Directive Discussion Completed RSV Vaccine Completed Shingrix Vaccine Completed Pneumococcal Vaccine: 50+ Completed Data reviewed Assessment and Plan ASSESSMENT/PLAN: 1. 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 - consent obtained. - SURGICAL PATHOLOGY Patient given care sheet. F/u 12-14 days suture removal or sooner if needed as discussed. MD Julieta Henry Jeffrey A, MD 01/30/2025 11:24 PM Signed UNIVERSAL PROTOCOL / SAFETY CHECKLIST Procedure to be Performed: excisional biopsy Sign In: A Moment of CARE was completed. Appropriate PPE (Personal Protective Equipment) worn by all providers involved with the procedure. Special equipment utilized Electrocaughtery. Patient/Surrogate Stated/Verified: Patient name, Date of , Relevant allergies, and The intended procedure Time Out: Relevant labs, photos, and/or imaging studies are not applicable. Intended patient and procedure match the source document(s) (e.g. consent, HANDP, associated studies [imaging, pathology]) match the intended patient and procedure. Consent obtained and matches the intended procedure. Yes. Correct side/site has been marked and visible. Medications required for this procedure are verified. Fire risk assessed and interventions discussed. Implants: are not applicable. Sign Out: Specimens are all correctly labeled and sent. All instruments, equipment, possible retained foreign bodies are accounted for. Yes. The post-procedure plan of care has been communicated to the patient or surrogate. Area was cleansed with betadine and alcohol and then anesthetized with 0.5% lido with Epi at 1:200,000. The area was draped in normal sterile fashion. The lesion was excised in an elliptical pattern using a #15 blade. Electrocaughtery set at 28 was used to aid in hemostasis. The edges were brought together with 3-0 Ethilon with 4-5 interrupted mattress sutures. The area was cleansed and then antibiotic ointment and a sterile dressing were applied. Patient tolerated well with minimal blood loss. 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 #:[id number] Prescriptions as of 01/30/2025 - latanoprost (XALATAN) 0.005 % ophthalmic solution 1 drop daily at bedtime. - losartan (COZAAR) 100 mg tablet Take 1 tablet by mouth once daily. - simvastatin (ZOCOR) 20 mg tablet Take 1 tablet by mouth daily at bedtime. - busPIRone (BUSPAR) 7.5 mg tablet Take 1 tablet by mouth two times a day. - amLODIPine (NORVASC) 5 mg tablet Take 1 tablet by mouth once daily. - venlafaxine ER (EFFEXOR XR) 150 mg 24 hr capsule Take 1 capsule by mouth once daily. - calcium Carbonate 300 mg, 750mg, (TUMS) 300 mg (750 mg) chewable tablet Take 1 tablet by mouth two times a day. - CHOLECALCIFEROL, VITAMIN D3, ORAL Take 2,000 Int'l Units/day by mouth once daily. - amiodarone (PACERONE) 200 mg tablet Take 200 mg by mouth once daily. - POTASSIUM ORAL Take 20 mEq by mouth once daily. - furosemide (LASIX) 40 mg tablet Take 40 mg by mouth once daily. - apixaban (ELIQUIS) 5 mg tab(s) Take 5 mg by mouth two times a day. 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] 06/03/2015 Cervical radiculopathy [M54.12] 03/14/2020 DDD (degenerative disc disease), cervical [M50.*03/14/2020 Carpal tunnel syndrome, bilateral [G56.03] 03/14/2020 Medication management [Z79.899] 04/28/2021 Living will on file [CMM0616] 12/15/2021 Advance directive discussed with patient [Z71.8*12/15/2021 Medicare annual wellness visit, subsequent [Z00*12/15/2021 Acute pain of right shoulder [M25.511] 12/19/2021 12/27/2023 Right hip pain [M25.551] 12/19/2021 Acute pain of both knees [M25.561, M25.562] 12/30/2022 12/27/2023 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 Paroxysmal atrial fibrillation (HCC) [I48.0] 01/04/2024 Chronic systolic CHF (congestive heart failure)*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 *01/04/2024 LIZZY (generalized anxiety disorder) [F41.1] 02/01/2024 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] 01/08/2025 Neoplasm of uncertain behavior of skin of upper*01/08/2025 Follow-up and Disposition History for Encounter Date Provider Department Center 01/25/2025 [id number] RENDON [facility] Encounter Status:Closed by CARL RENDON on 01/30/25 CNOV Observed: 01/08/2025 8:00 AM Status: COMPLETED Source: [facility] Office Visit (INDIRA) TEODORACHERYL Alla ([id number]) 1935 F Date Time Provider Department 01/08/25 8:00 AM CARL RENDON During your visit today, we recorded the following information about you: Pulse Respiration Blood pressure Weight 60/minute 16/minute 138/74 68.5 kg Height 1.6 m Carl Rendon MD 01/09/2025 7:03 PM Signed Cheryl Abarca is a 89 year old female here for a Medicare wellness visit. Medicare Health Risk Assessment General Health Good Exercise: Minutes/Day 20 min Exercise: Days/Week 3 days Alcohol: Daily Use 2-3 times a week Alcohol: Drinks/Day 1 or 2 Alcohol: 6 or more drinks Never Feel off balance No Concerns: Teeth/Dentures No Concerns: Sexual function No Troubled by feelings Stressed; Irritable Frequency: Eating healthy diet Nearly every day ADLs requiring help None of the above Safety precautions in home/vehicle No Smoke, vape, chews tobacco No Difficulty hearing Yes, I wear a hearing aid Difficulty seeing No Current Providers Specialists: I have reviewed specialist-related care of the patient in the medical record. Current care team: Patient Care Team: Carl Rendon MD as PCP - General (Family Medicine) Alejandra Camacho APRN.SHINGLES ROOFER as Inspector Tubes (Family Medicine) Dionna Uriarte PA-C as Inspector Tubes (Family Medicine) [facility]: cardio Medical/Family history review Reviewed and updated problem list, medical/surgical/family/social history, medications, and allergies. Opioid use review Opioid Medications (last 90 days) No data to display Anxiety/Depression screening PHQ-9 Score: 6 (Mild Depression) Recommendation: continuing current treatment plan Cognitive screening Score: 5 Cognitive screening reviewed and No further action needed (score 3-5). Functional Observation Was the patient's Timed Up AND Go test unsteady or >= 12 seconds? No Advance Care Planning Surrogate decision maker documented and/or advance directives scanned in chart Measurements BP 142/80 Pulse 60 Resp 16 Ht 160 cm (5' 3) Wt 68.5 kg (151 lb) SpO2 96% BMI 26.75 kg/m? Vision Screening: Follows with optometry/ophthalmology Assessment/Plan Medicare annual wellness visit, subsequent (Z00.00) - Counseled on healthy diet and regular exercise - Fall avoidance information provided - Personalized prevention plan provided See below Chief Complaint Patient presents with: Medicare Wellness Exam HPI Cheryl Abarca is a 89 year old female who presents here today for Chronic Medical Conditions. and Medicare Annual Visit. Patient with hx of HTN, hyperlipidemia, a. Fib, CHF, OA, LIZZY, depression and those as below. Patient sees cardiology last visit 03/2024 Patient has been doing well. No new issues or concerns. . Cheryl underwent a hammertoe repair on the second toe approximately 5-6 weeks ago, performed by Dr. Seth [facility]. She is uncertain about the outcome of the procedure and has a follow-up appointment with a different belt lacer due to Dr. Seth's relocation to [place]. She also has a bunion on the same foot. She reports occasional dizziness, particularly when transitioning from a seated to a standing position, but denies any falls. The dizziness is brief and not associated with any other symptoms. She denies any recent fevers, cephalalgia, sudden changes in hearing or vision, nasal or throat issues, wheezing, dyspnea, hemoptysis, chest pain, palpitations, or lower extremity edema. 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 Cheryl has a history of atrial fibrillation, which is occasionally detected by her smartwatch. She notes that her heart rate has been stable around 104 bpm, compared to 140 bpm last year. She denies any associated symptoms such as dizziness, lightheadedness, syncope, or chest pressure. She denies any recent nausea, emesis, diarrhea, heartburn, hematuria, dysuria, or changes in urinary frequency. She reports a desire to lose weight but denies any new musculoskeletal issues. Cheryl has a persistent skin lesion on her arm that has been present for 6-12 months. The lesion scabs over and is easily removed but never fully resolves. She denies any pruritus or pain associated with the lesion. She also reports easy bruising and a slight increase in thirst. She is currently taking medication for anxiety and depression and feels that her symptoms are well-managed. She denies any recent decrease in interest or pleasure in activities she enjoys. Cheryl is currently living in independent living at [place] with her , who has memory problems. She is responsible for managing his medications and has concerns about his ability to live independently if she were to pass away. She has discussed these concerns with her children, who have medical and financial power of wheat washer. Past medical history, appointments, medications, allergies reviewed. Previous Medical History PAST MEDICAL HISTORY Diagnosis Date Acute systolic CHF (congestive heart failure) (HCC) 01/04/2024 Echo 12/29/23. EF 50% Adjustment disorder with depressed mood 04/08/2005 Advance directive discussed with patient 12/15/2021 Discussed 11/2021 Carpal tunnel syndrome, bilateral 03/14/2020 Cervical radiculopathy 03/14/2020 Chronic bronchitis (HCC) 05/31/2014 Chronic systolic CHF (congestive heart failure) (HCC) 01/04/2024 Echo 12/29/23. EF 50% DDD (degenerative disc disease), cervical 03/14/2020 Diverticulitis of colon (without mention of hemorrhage)(562.11) Essential hypertension, benign 01/06/2008 LIZZY (generalized anxiety disorder) 02/01/2024 [facility] for counseling. 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 PAST SURGICAL HISTORY OF Right 11/2024 right 2nd toe. PLC BREAST CLIP PERC Left breast TONSILLECTOMY PRIMARY/SECONDARY <AGE 14 Tonsillectomy Family History FAMILY HISTORY Problem Relation Age of Onset Prostate Cancer Father Psychiatry Mother Hypertension Mother Breast Cancer Maternal Grandmother Colon Cancer Maternal Grandfather Psychiatry Brother schizophrenic Arthritis Paternal Grandfather Rheumatoid Patient Allergies ALLERGIES Allergen Reactions Bactrim Ds [Sulfame* Rash Current Medications Current Outpatient Medications on File Prior to Visit Medication Sig losartan (COZAAR) 100 mg tablet Take 1 tablet by mouth once daily. simvastatin (ZOCOR) 20 mg tablet Take 1 tablet by mouth daily at bedtime. busPIRone (BUSPAR) 7.5 mg tablet Take 1 tablet by mouth two times a day. amLODIPine (NORVASC) 5 mg tablet Take 1 tablet by mouth once daily. venlafaxine ER (EFFEXOR XR) 150 mg 24 hr capsule Take 1 capsule by mouth once daily. calcium Carbonate 300 mg, 750mg, (TUMS) 300 mg (750 mg) chewable tablet Take 1 tablet by mouth two times a day. CHOLECALCIFEROL, VITAMIN D3, ORAL Take 2,000 Int'l Units/day by mouth once daily. amiodarone (PACERONE) 200 mg tablet Take 200 mg by mouth once daily. POTASSIUM ORAL Take 20 mEq by mouth once daily. furosemide (LASIX) 40 mg tablet Take 40 mg by mouth once daily. apixaban (ELIQUIS) 5 mg tab(s) Take 5 mg by mouth two times a day. No current facility-administered medications on file prior to visit. Social History Social History Tobacco Use Smoking status: Former Current packs/day: 0.00 Types: Pipe, Cigarettes Start date: 01/07/2006 Quit date: 12/27/2023 Years since quittin.0 Smokeless tobacco: Never Tobacco comments: Used to smoke cigarettes. Vaping Use Vaping status: Never Used Substance Use Topics Alcohol use: Yes Comment: wine- 4-6 oz 5 times a week Drug use: No Review of Symptoms REVIEW OF SYSTEMS GENERAL: No weight loss, malaise or fevers HEENT: Negative for frequent or significant headaches, No changes in hearing or vision, no nose bleeds or other nasal problems NECK: Negative for lumps, goiter, pain and significant neck swelling RESPIRATORY: Negative for cough, hemoptysis, wheezing, COPD, dyspnea or shortness of breath CARDIOVASCULAR: Negative for chest pain, leg swelling, hypertension, CHF or palpitations GI: No nausea, vomiting, or diarrhea, No heartburn or reflux symptoms, and no blood : No history of dysuria, frequency or blood MUSCULOSKELETAL: Negative for new or changes in her typical joint pain or swelling, back pain or muscle pain SKIN: Negative for rash, and itching. Has a lesion of the left upper arm that scabs and then she picks at it. Noticed in in the last 6-12 months. Never resolves. Not tender or itchy. PSYCH: see Medicare sect. HEMATOLOGY/LYMPHOLOGY: Negative for prolonged bleeding, bruising easily or swollen nodes ENDOCRINE: Negative for cold or heat intolerance, polyuria, and goiter. Some NEURO: No history of headaches, syncope, paralysis, seizures or tremors SEE HPI EXAM: BP 138/74 Pulse 60 Resp 16 Ht 160 cm (5' 3) Wt 68.5 kg (151 lb) SpO2 96% BMI 26.75 kg/m? BP 138/74 Pulse 60 Resp 16 Ht 160 cm (5' 3) Wt 68.5 kg (151 lb) SpO2 96% BMI 26.75 kg/m? Last 5 Encounter Wt Readings: Date: Wt: 01/08/2025 68.5 kg (151 lb) 07/05/2024 68.9 kg (152 lb) 05/01/2024 64.4 kg (142 lb) 02/22/2024 67.6 kg (149 lb) 02/01/2024 65.8 kg (145 lb) General Appearance: Well appearing, alert, in no acute distress, well-hydrated, well nourished.. Skin: Skin color, texture, turgor normal, no suspicious rashes. Has a irritated growth on the left upper arm suspicious for SCC or BCC. Head: Normocephalic, no masses, lesions, tenderness or abnormalities. Eyes: Anicteric sclera. Pupils are equally round and reactive to light. Extraocular movements are intact. . Ears: External ears, and right TM normal, right canal is clear. Left canal blocked with wax. Nose/Sinuses: Nares normal, septum midline, mucosa normal, no drainage or sinus tenderness. Oropharynx: Lips, mucosa, and tongue normal, teeth and gums normal, oropharynx normal. Neck: Supple, no adenopathy; thyroid symmetric, normal size, no bruits. Lungs: Lungs clear to auscultation. No wheezing, rhonchi, rales.. Heart: RRR without murmur, gallop, or rubs. No ectopy. Abdomen: Normal abdominal exam, Abdomen soft, non-tender. Bowel sounds normal. No masses, organomegaly. Extremities: No deformities, edema, skin discoloration, clubbing or cyanosis. Good capillary refill. . Musculoskeletal: Muscular strength intact, No joint swelling, deformity, or tenderness. Peripheral Pulses: Normal. Neurologic: Gait normal. Reflexes normal and symmetric. Sensation to light touch and crainal nerves 2-12 intact.. Health Maintenance List Medicare Annual Wellness Visit due on 12/26/2024 DTaP,Tdap,Td Vaccine(4 - Td or Tdap) due on 01/08/2026 Covid-19 Vaccine() due on 01/08/2026 Depression Screening due on 01/08/2026 Diabetes Screening due on 01/07/2028 Bone Density Screening Completed Influenza Vaccine Completed Advance Directive Discussion Completed RSV Vaccine Completed Shingrix Vaccine Completed Pneumococcal Vaccine: 50+ Completed Data reviewed Latest Ref Rng 01/04/2024 01/19/2024 01/06/2025 WBC 3.70 - 11.00 k/uL 8.33 7.00 RBC 3.90 - 5.20 m/uL 4.69 4.78 Hemoglobin 11.5 - 15.5 g/dL 14.3 14.9 Hematocrit 36.0 - 46.0 % 42.8 44.7 MCV 80.0 - 100.0 fL 91.3 93.5 MCH 26.0 - 34.0 pg 30.5 31.2 MCHC 30.5 - 36.0 g/dL 33.4 33.3 RDW-CV 11.5 - 15.0 % 13.3 13.6 Platelet Count 150 - 400 k/uL 245 262 MPV 9.0 - 12.7 fL 10.6 10.3 Neut% % 79.8 74.9 Abs Neut (ANC) 1.45 - 7.50 k/uL 6.65 5.24 Lymph% % 13.0 16.4 Abs Lymph 1.00 - 4.00 k/uL 1.08 1.15 [place]% % 4.8 5.6 Abs [place] <0.87 k/uL 0.40 0.39 Eosin% % 1.3 2.1 Abs Eosin <0.46 k/uL 0.11 0.15 Baso% % 0.6 0.6 Abs Baso <0.11 k/uL 0.05 0.04 Immature Gran % % 0.5 0.4 IMMATURE GRANS (ABS) <0.10 k/uL 0.04 0.03 NRBC /100 WBC 0.0 0.0 Absolute nRBC <0.01 k/uL <0.01 <0.01 DTYPE Auto Auto Color Yellow Yellow Yellow Clarity Clear Clear Clear Glucose, Urine Negative Negative Negative Bilirubin, Urine Negative Negative Negative Ketones, Urine Negative Negative Negative Specific [place], Ur 1.005 - 1.030 1.011 1.019 Hemoglobin/Blood,Ur Negative Negative Negative pH, Urine <8.5 6.0 6.0 Protein, Urine Negative Negative Negative Urobilinogen 0.2-1.0 EU/dL 0.2 EU/dL 0.2 EU/dL Nitrites Negative Negative Negative Leukest Negative Negative 1+ ! WBC, Urine 0-5 /HPF 0-5 /HPF 0-5 /HPF RBC, Urine 0-2 /HPF 0-2 /HPF 0-2 /HPF Bacteria Negative /HPF Negative Negative Epithelial Cells /HPF None Seen Few Hyaline Cast 0 /LPF 0 /LPF 0 /LPF Protein, Total 6.3 - 8.0 g/dL 6.3 6.3 6.5 Albumin 3.9 - 4.9 g/dL 4.3 4.4 4.3 Calcium 8.5 - 10.2 mg/dL 9.8 9.3 9.6 Bilirubin, Total 0.2 - 1.3 mg/dL 0.7 0.6 0.5 Alkaline Phosphatase 34 - 123 U/L 75 79 72 AST 13 - 35 U/L 28 14 20 ALT 7 - 38 U/L 44 (H) 21 21 Glucose 74 - 99 mg/dL 143 (H) 152 (H) 126 (H) BUN 7 - 21 mg/dL 17 18 15 Creatinine 0.58 - 0.96 mg/dL 0.81 0.88 0.95 Sodium 136 - 144 mmol/L 141 137 143 Potassium 3.7 - 5.1 mmol/L 4.2 4.3 4.3 Chloride 98 - 107 mmol/L 107 101 107 CO2 22 - 30 mmol/L 21 (L) 21 (L) 23 Anion Gap 8 - 15 mmol/L 13 15 13 eGFR >=60 mL/min/1.73m? 71 64 58 (L) Total Cholesterol, Nonfasting <200 mg/dL 134 167 Triglycerides, Nonfasting <150 mg/dL 154 (H) 93 HDL Cholesterol, Nonfasting >39 mg/dL 43 74 LDL Cholesterol Calculated, Nonfasting <100 mg/dL 60 76 Non HDL Cholesterol, Nonfasting <130 mg/dL 91 93 VLDL Cholesterol, Nonfasting <30 mg/dL 31 (H) 14 Total Chol/HDL Ratio, Nonfasting <5.10 mg/dL 3.12 2.26 LDL/HDL Ratio, Nonfasting <2.54 mg/dL 1.40 1.03 TSH 0.270 - 4.200 mIU/L 2.680 Vitamin B12 232 - 1,245 pg/mL 502 Assessment and Plan 1. Medicare annual wellness visit, subsequent Comprehensive review of systems and physical examination performed. Discussed current health status, preventive measures, and future healthcare needs. - Encouraged patient to maintain adequate hydration, aiming for 56-64 ounces of water daily. - Discussed importance of staying up to date with vaccinations; recommended Tdap booster at pharmacy and COVID/flu vaccines on or after May 08. 2. Essential hypertension, benign Blood pressure readings are well-controlled at 142/80 and 138/74. Patient experiences occasional dizziness when changing positions. - Continue current management. - Monitor for any increase in dizziness or other symptoms. 3. Hyperlipidemia, mixed Lipid panel shows triglycerides at 93 mg/dL, HDL at 74 mg/dL, and LDL at 76 mg/dL, indicating good control. Continue current management. 4. Chronic systolic CHF (congestive heart failure) (HCC) No current symptoms of dyspnea, orthopnea, or edema reported. Continue current management. 5. Paroxysmal atrial fibrillation (HCC) Episodes of atrial fibrillation are less frequent and severe compared to last year. No associated symptoms such as dizziness, lightheadedness, or chest pain reported. Continue current management. Follows with cardio. 6. Adjustment disorder with depressed mood LIZZY (generalized anxiety disorder) Patient reports being able to engage in activities she enjoys and does not feel the need for medication adjustment at this time. Continue current management. 7. Smoker - pt aware of health risks. - avdised quitting. 8. Primary osteoarthritis involving multiple joints Chronic condition with no new symptoms reported. Continue current management. 9. Excessive ear wax, left Left ear canal is almost completely occluded with cerumen. - Discussed irrigation with wam water. Verbal consent provided. Left ear was irrigated with warm water for the removal of wax per nursing. Patient tolerated well. 10. 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 Differential diagnosis includes squamous cell carcinoma or basal cell carcinoma. - Scheduled excisional biopsy in a couple of weeks to remove the lesion and send it to pathology for evaluation. - Discussed procedure details, including making a football-shaped incision, removing the lesion, and sending it to pathology. - Explained that if margins are clear, no further treatment will be necessary. - Patient will have stitches placed and will return in 12-14 days for suture removal. 11. 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 Continue current management per her opthomologist. 12. Advance directive discussed with patient Patient has a will and has discussed future care plans with her children, who hold medical and financial power of wheat washer. Encouraged patient to en, sure plans are in place for her 's care in the event of her passing. 13. Screening for depression No significant depressive symptoms reported; patient is able to engage in activities she enjoys. Continue monitoring. 14. Medication management Current medications reviewed; patient reports occasional dizziness when changing positions. Continue current medication regimen. F/u next few weeks for excisional biopsy left upper arm. F/u 6 months routine check BMP and TSH prior. I spent a total of 40 minutes on the date of the service which included preparing to see the patient, [id number] patient care, completing clinical documentation, performing a medically appropriate examination, counseling and educating the patient/family/caregiver and ordering medications, tests, or procedures. Carl Rendon MD Recording using [employer] software for draft documentation of the visit was discussed with the patient/authorized service representative; all questions welcomed and answered. Patient/authorized service representative agreed to proceed Carl Rendon MD 01/08/2025 8:55 AM Addendum Consider getting a Tdap for tetanus update at a local pharmacy. Get your Flu and covid updated on or after 05/08/2025. Please get labs done on or after 06/22/2025 prior to your next visit. We discussed your recent health concerns and follow-up care: - Skin Lesion on Arm: - The lesion on your arm that has not resolved over the past 6-12 months is concerning for possible skin cancer (squamous cell or basal cell). These types of skin cancer are typically treated by removing the lesion. - We will schedule a follow-up appointment in a couple of weeks to remove the lesion in the office. The procedure will involve cleaning the area, making a small incision to remove the lesion, and sending it to pathology to confirm the diagnosis. You will go home with stitches, and we will remove them in 12-14 days. - Please monitor the area for any changes or worsening and let us know if you have concerns before your follow-up. - Ear Cleaning: - Your left ear was almost blocked, and we cleaned it out during today?s visit. Please let us know if you experience any further issues with your ears. - Kidney Function: - Your recent lab results showed slightly decreased kidney function (GFR of 58; normal is 60 or above). This may have been due to mild dehydration at the time of your blood draw. - To support kidney health, I recommend drinking 56-64 ounces of water daily. This is equivalent to about three 16.9-ounce water bottles per day. - Blood Pressure: - Your blood pressure today was 138/74, which is within an acceptable range for your age. We will continue monitoring it, but no changes to your current management are needed at this time. - Please let us know if you experience dizziness, especially when changing positions, or if you have any other concerns. - Cholesterol: - Your cholesterol levels are excellent: - Triglycerides: 93 (goal: below 150) - HDL (good cholesterol): 74 (goal: above 50) - LDL (bad cholesterol): 76 (goal: below 100) - Continue your current diet and lifestyle habits to maintain these levels. - COVID-19 and Flu Vaccines: - I recommend getting your COVID-19 booster and flu vaccine on or after May 08. You can schedule these at a local pharmacy or with us as a nurse visit. - A reminder has been added to your after-visit summary. - Tdap Vaccine: - You are due for a Tdap (tetanus, diphtheria, and pertussis) booster. This can be done at a pharmacy. Please check with the pharmacy to see if an appointment is needed. - Anxiety and Depression: - You reported feeling okay with your current medication regimen for anxiety and depression. No changes were made at this time. Please let us know if your symptoms worsen or if you feel you need an adjustment in the future. - General Health: - Your recent lab results, including blood counts, liver function, and electrolytes, were normal. - Your hemoglobin and platelet levels were fine, and there were no signs of infection or anemia. Follow-Up: - We will see you in a couple of weeks to remove the lesion on your arm. - Your next routine visit is scheduled in six months with Alejandra. Labs will be ordered before that visit. Please contact our office if you have any questions or concerns before your next appointment. Screening schedule The following prevention plan is recommended: DTaP,Tdap,Td Vaccine(4 - Td or Tdap) due on 03/30/2022 Advance Directive Discussion due on 07/26/2024 Covid-19 Vaccine( season) due on 10/19/2024 Medicare Annual Wellness Visit due on 12/26/2024 Depression Screening due on 12/26/2024 WHAT YOU CAN DO TO PREVENT FALLS Many falls can be prevented. By making some changes, you can lower your chances of falling. Four things YOU can do to prevent falls for you* and your caregiver 1. Begin a regular exercise program Exercise is one of the most important ways to lower your chances of falling. It makes you stronger and helps you feel better. Exercises that improve balance and coordination (like Placido Chi) are the most helpful. Lack of exercise leads to weakness and increases your chances of falling. Ask your doctor or health care provider about the best type of exercise program for you. 2. Have your health care provider review your medicines Have your doctor or pharmacist review all the medicines you take, even qoid-cjk-taafyrg medicines. As you get older, the way medicines work in your body can change. Some medicines, or combinations of medicines, can make you sleepy or dizzy and can cause you to fall. 3. Have your vision checked Have your eyes checked by an eye doctor at least once a year. You may be wearing the wrong glasses or have a condition like glaucoma or cataracts that limits your vision. Poor vision can increase your chances of falling. 4. Make your home safer About half of all falls happen at home. To make your home safer: Remove things you can trip over (like papers, books, clothes, and shoes) from stairs and places where you walk. Remove small throw rugs or use double-sided tape to keep the rugs from slipping. Keep items you use often in cabinets you can reach easily without using a step stool. Have grab bars put in next to your toilet and in the tub or shower. Use non-slip mats in the bathtub and on shower floors. Improve the lighting in your home. As you get older, you need brighter lights to see well. Hang light-weight curtains or shades to reduce glare. Have handrails and lights put in on all staircases. Wear shoes both inside and outside the house. Avoid going barefoot or wearing slippers. For more information, contact: Centers for Disease Control and Prevention www.cdc.gov/injury * This information may not apply if you have certain medical conditions. Allergies As of Date: 01/08/2025 Noted Allergy Reaction BACTRIM DS (SULFAMETHOXAZOLE-TRIM*01/04/2008 2 - Rash Date Reviewed: 01/08/2025 Reviewed by: Carl Rendon MD - Fully Assessed Reason for Visit: Medicare Wellness Exam [4060] Primary Visit Diagnosis:Medicare annual wellness visit, subsequent [Z00.00] Other Visit Diagnoses:Essential hypertension, benign [I10] Hyperlipidemia, mixed [E78.2] Chronic systolic CHF (congestive heart failure) (HCC) [I50.22] Paroxysmal atrial fibrillation (HCC) [I48.0] Adjustment disorder with depressed mood [F43.21] Smoker [F17.200] LIZZY (generalized anxiety disorder) [F41.1] 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] Excessive ear wax, left [H61.22] 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 [D48.5] Comment:left upper 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 - losartan (COZAAR) 100 mg tablet Take 1 tablet by mouth once daily. - simvastatin (ZOCOR) 20 mg tablet Take 1 tablet by mouth daily at bedtime. - busPIRone (BUSPAR) 7.5 mg tablet Take 1 tablet by mouth two times a day. - amLODIPine (NORVASC) 5 mg tablet Take 1 tablet by mouth once daily. - venlafaxine ER (EFFEXOR XR) 150 mg 24 hr capsule Take 1 capsule by mouth once daily. - calcium Carbonate 300 mg, 750mg, (TUMS) 300 mg (750 mg) chewable tablet Take 1 tablet by mouth two times a day. - CHOLECALCIFEROL, VITAMIN D3, ORAL Take 2,000 Int'l Units/day by mouth once daily. - amiodarone (PACERONE) 200 mg tablet Take 200 mg by mouth once daily. - POTASSIUM ORAL Take 20 mEq by mouth once daily. - furosemide (LASIX) 40 mg tablet Take 40 mg by mouth once daily. - apixaban (ELIQUIS) 5 mg tab(s) Take 5 mg by mouth two times a day. 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] 06/03/2015 Cervical radiculopathy [M54.12] 03/14/2020 DDD (degenerative disc disease), cervical [M50.*03/14/2020 Carpal tunnel syndrome, bilateral [G56.03] 03/14/2020 Medication management [Z79.899] 04/28/2021 Living will on file [[id number]] 12/15/2021 Advance directive discussed with patient [Z71.8*12/15/2021 Medicare annual wellness visit, subsequent [Z00*12/15/2021 Acute pain of right shoulder [M25.511] 12/19/2021 12/27/2023 Right hip pain [M25.551] 12/19/2021 Acute pain of both knees [M25.561, M25.562] 12/30/2022 12/27/2023 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 Paroxysmal atrial fibrillation (HCC) [I48.0] 01/04/2024 Chronic systolic CHF (congestive heart failure)*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 Get your Flu and covid updated on or after 05/08/2025. Please get labs done on or after 06/22/2025 prior to your next visit. We discussed your recent health concerns and follow-up care: - Skin Lesion on Arm: - The lesion on your arm that has not resolved over the past 6-12 months is concerning for possible skin cancer (squamous cell or basal cell). These types of skin cancer are typically treated by removing the lesion. - We will schedule a follow-up appointment in a couple of weeks to remove the lesion in the office. The procedure will involve cleaning the area, making a small incision to remove the lesion, and sending it to pathology to confirm the diagnosis. You will go home with stitches, and we will remove them in 12-14 days. - Please monitor the area for any changes or worsening and let us know if you have concerns before your follow-up. - Ear Cleaning: - Your left ear was almost blocked, and we cleaned it out during today?s visit. Please let us know if you experience any further issues with your ears. - Kidney Function: - Your recent lab results showed slightly decreased kidney function (GFR of 58; normal is 60 or above). This may have been due to mild dehydration at the time of your blood draw. - To support kidney health, I recommend drinking 56-64 ounces of water daily. This is equivalent to about three 16.9-ounce water bottles per day. - Blood Pressure: - Your blood pressure today was 138/74, which is within an acceptable range for your age. We will continue monitoring it, but no changes to your current management are needed at this time. - Please let us know if you experience dizziness, especially when changing positions, or if you have any other concerns. - Cholesterol: - Your cholesterol levels are excellent: - Triglycerides: 93 (goal: below 150) - HDL (good cholesterol): 74 (goal: above 50) - LDL (bad cholesterol): 76 (goal: below 100) - Continue your current diet and lifestyle habits to maintain these levels. - COVID-19 and Flu Vaccines: - I recommend getting your COVID-19 booster and flu vaccine on or after May 08. You can schedule these at a local pharmacy or with us as a nurse visit. - A reminder has been added to your after-visit summary. - Tdap Vaccine: - You are due for a Tdap (tetanus, diphtheria, and pertussis) booster. This can be done at a pharmacy. Please check with the pharmacy to see if an appointment is needed. - Anxiety and Depression: - You reported feeling okay with your current medication regimen for anxiety and depression. No changes were made at this time. Please let us know if your symptoms worsen or if you feel you need an adjustment in the future. - General Health: - Your recent lab results, including blood counts, liver function, and electrolytes, were normal. - Your hemoglobin and platelet levels were fine, and there were no signs of infection or anemia. Follow-Up: - We will see you in a couple of weeks to remove the lesion on your arm. - Your next routine visit is scheduled in six months with Alejandra. Labs will be ordered before that visit. Please contact our office if you have any questions or concerns before your next appointment. Screening schedule The following prevention plan is recommended: DTaP,Tdap,Td Vaccine(4 - Td or Tdap) due on 03/30/2022 Advance Directive Discussion due on 07/26/2024 Covid-19 Vaccine( season) due on 10/19/2024 Medicare Annual Wellness Visit due on 12/26/2024 Depression Screening due on 12/26/2024 WHAT YOU CAN DO TO PREVENT FALLS Many falls can be prevented. By making some changes, you can lower your chances of falling. Four things YOU can do to prevent falls for you* and your caregiver 1. Begin a regular exercise program Exercise is one of the most important ways to lower your chances of falling. It makes you stronger and helps you feel better. Exercises that improve balance and coordination (like Placido Chi) are the most helpful. Lack of exercise leads to weakness and increases your chances of falling. Ask your doctor or health care provider about the best type of exercise program for you. 2. Have your health care provider review your medicines Have your doctor or pharmacist review all the medicines you take, even lbzz-ycd-qrbitre medicines. As you get older, the way medicines work in your body can change. Some medicines, or combinations of medicines, can make you sleepy or dizzy and can cause you to fall. 3. Have your vision checked Have your eyes checked by an eye doctor at least once a year. You may be wearing the wrong glasses or have a condition like glaucoma or cataracts that limits your vision. Poor vision can increase your chances of falling. 4. Make your home safer About half of all falls happen at home. To make your home safer: Remove things you can trip over (like papers, books, clothes, and shoes) from stairs and places where you walk. Remove small throw rugs or use double-sided tape to keep the rugs from slipping. Keep items you use often in cabinets you can reach easily without using a step stool. Have grab bars put in next to your toilet and in the tub or shower. Use non-slip mats in the bathtub and on shower floors. Improve the lighting in your home. As you get older, you need brighter lights to see well. Hang light-weight curtains or shades to reduce glare. Have handrails and lights put in on all staircases. Wear shoes both inside and outside the house. Avoid going barefoot or wearing slippers. For more information, contact: Centers for Disease Control and Prevention www.cdc.gov/injury * This information may not apply if you have certain medical conditions. Disposition: Return in about 6 months (around 07/10/2025) for routine with Alejandra. Follow-up and Disposition History for Encounter Date Provider Department Center 01/08/2025 [id number]-PINSWWCARL RENDON [facility], [facility] Encounter Status:Closed by CARL RENDON on 01/09/25 PROGRESS Observed: 01/08/2025 7:47 AM Status: COMPLETED Source: [facility] ID: [id number] Author: CARL RENDON MD Service: ? Author Type: Physician Type: Progress Notes Filed: 01/09/2025 19:03 Note Text: Cheryl Abarca is a 89 year old female here for a Medicare wellness visit. Medicare Health Risk Assessment General Health Good Exercise: Minutes/Day 20 min Exercise: Days/Week 3 days Alcohol: Daily Use 2-3 times a week Alcohol: Drinks/Day 1 or 2 Alcohol: 6 or more drinks Never Feel off balance No Concerns: Teeth/Dentures No Concerns: Sexual function No Troubled by feelings Stressed; Irritable Frequency: Eating healthy diet Nearly every day ADLs requiring help None of the above Safety precautions in home/vehicle No Smoke, vape, chews tobacco No Difficulty hearing Yes, I wear a hearing aid Difficulty seeing No Current Providers Specialists: I have reviewed specialist-related care of the patient in the medical record. Current care team: Patient Care Team: Carl Rendon MD as PCP - General (Family Medicine) Alejandra Camacho APRN.CNP as Inspector Tubes (Family Medicine) Dionna Uriarte PA-C as Inspector Tubes (Family Medicine) [facility]: cardio Medical/Family history review Reviewed and updated problem list, medical/surgical/family/social history, medications, and allergies. Opioid use review Opioid Medications (last 90 days) No data to display Anxiety/Depression screening PHQ-9 Score: 6 (Mild Depression) Recommendation: continuing current treatment plan Cognitive screening Score: 5 Cognitive screening reviewed and No further action needed (score 3-5). Functional Observation Was the patient's Timed Up AND Go test unsteady or >= 12 seconds? No Advance Care Planning Surrogate decision maker documented and/or advance directives scanned in chart Measurements BP 142/80 Pulse 60 Resp 16 Ht 160 cm (5' 3) Wt 68.5 kg (151 lb) SpO2 96% BMI 26.75 kg/m? Vision Screening: Follows with optometry/ophthalmology Assessment/Plan Medicare annual wellness visit, subsequent (Z00.00) - Counseled on healthy diet and regular exercise - Fall avoidance information provided - Personalized prevention plan provided See below Chief Complaint Patient presents with: Medicare Wellness Exam HPI Cheryl Abarca is a 89 year old female who presents here today for Chronic Medical Conditions. and Medicare Annual Visit. Patient with hx of HTN, hyperlipidemia, a. Fib, CHF, OA, LIZZY, depression and those as below. Patient sees cardiology last visit 03/2024 Patient has been doing well. No new issues or concerns. . Cheryl underwent a hammertoe repair on the second toe approximately 5-6 weeks ago, performed by Dr. Seth [facility]. She is uncertain about the outcome of the procedure and has a follow-up appointment with a different belt lacer due to Dr. Seth's relocation to [place]. She also has a bunion on the same foot. She reports occasional dizziness, particularly when transitioning from a seated to a standing position, but denies any falls. The dizziness is brief and not associated with any other symptoms. She denies any recent fevers, cephalalgia, sudden changes in hearing or vision, nasal or throat issues, wheezing, dyspnea, hemoptysis, chest pain, palpitations, or lower extremity edema. 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 Cheryl has a history of atrial fibrillation, which is occasionally detected by her smartwatch. She notes that her heart rate has been stable around 104 bpm, compared to 140 bpm last year. She denies any associated symptoms such as dizziness, lightheadedness, syncope, or chest pressure. She denies any recent nausea, emesis, diarrhea, heartburn, hematuria, dysuria, or changes in urinary frequency. She reports a desire to lose weight but denies any new musculoskeletal issues. Cheryl has a persistent skin lesion on her arm that has been present for 6-12 months. The lesion scabs over and is easily removed but never fully resolves. She denies any pruritus or pain associated with the lesion. She also reports easy bruising and a slight increase in thirst. She is currently taking medication for anxiety and depression and feels that her symptoms are well-managed. She denies any recent decrease in interest or pleasure in activities she enjoys. Cheryl is currently living in independent living at [place] with her , who has memory problems. She is responsible for managing his medications and has concerns about his ability to live independently if she were to pass away. She has discussed these concerns with her children, who have medical and financial power of wheat washer. Past medical history, appointments, medications, allergies reviewed. Previous Medical History PAST MEDICAL HISTORY Diagnosis Date Acute systolic CHF (congestive heart failure) (HCC) 01/04/2024 Echo 12/29/23. EF 50% Adjustment disorder with depressed mood 04/08/2005 Advance directive discussed with patient 12/15/2021 Discussed 11/2021 Carpal tunnel syndrome, bilateral 03/14/2020 Cervical radiculopathy 03/14/2020 Chronic bronchitis ([facility]) 05/31/2014 Chronic systolic CHF (congestive heart failure) ([facility]) 01/04/2024 Echo 12/29/23. EF 50% DDD (degenerative disc disease), cervical 03/14/2020 Diverticulitis of colon (without mention of hemorrhage)(562.11) Essential hypertension, benign 01/06/2008 LIZZY (generalized anxiety disorder) 02/01/2024 [facility] for counseling. 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 PAST SURGICAL HISTORY OF Right 11/2024 right 2nd toe. PLC BREAST CLIP PERC Left breast TONSILLECTOMY PRIMARY/SECONDARY <AGE 14 Tonsillectomy Family History FAMILY HISTORY Problem Relation Age of Onset Prostate Cancer Father Psychiatry Mother Hypertension Mother Breast Cancer Maternal Grandmother Colon Cancer Maternal Grandfather Psychiatry Brother schizophrenic Arthritis Paternal Grandfather Rheumatoid Patient Allergies ALLERGIES Allergen Reactions Bactrim Ds [Sulfame* Rash Current Medications Current Outpatient Medications on File Prior to Visit Medication Sig losartan (COZAAR) 100 mg tablet Take 1 tablet by mouth once daily. simvastatin (ZOCOR) 20 mg tablet Take 1 tablet by mouth daily at bedtime. busPIRone (BUSPAR) 7.5 mg tablet Take 1 tablet by mouth two times a day. amLODIPine (NORVASC) 5 mg tablet Take 1 tablet by mouth once daily. venlafaxine ER (EFFEXOR XR) 150 mg 24 hr capsule Take 1 capsule by mouth once daily. calcium Carbonate 300 mg, 750mg, (TUMS) 300 mg (750 mg) chewable tablet Take 1 tablet by mouth two times a day. CHOLECALCIFEROL, VITAMIN D3, ORAL Take 2,000 Int'l Units/day by mouth once daily. amiodarone (PACERONE) 200 mg tablet Take 200 mg by mouth once daily. POTASSIUM ORAL Take 20 mEq by mouth once daily. furosemide (LASIX) 40 mg tablet Take 40 mg by mouth once daily. apixaban (ELIQUIS) 5 mg tab(s) Take 5 mg by mouth two times a day. No current facility-administered medications on file prior to visit. Social History Social History Tobacco Use Smoking status: Former Current packs/day: 0.00 Types: Pipe, Cigarettes Start date: 01/07/2006 Quit date: 12/27/2023 Years since quittin.0 Smokeless tobacco: Never Tobacco comments: Used to smoke cigarettes. Vaping Use Vaping status: Never Used Substance Use Topics Alcohol use: Yes Comment: wine- 4-6 oz 5 times a week Drug use: No Review of Symptoms REVIEW OF SYSTEMS GENERAL: No weight loss, malaise or fevers HEENT: Negative for frequent or significant headaches, No changes in hearing or vision, no nose bleeds or other nasal problems NECK: Negative for lumps, goiter, pain and significant neck swelling RESPIRATORY: Negative for cough, hemoptysis, wheezing, COPD, dyspnea or shortness of breath CARDIOVASCULAR: Negative for chest pain, leg swelling, hypertension, CHF or palpitations GI: No nausea, vomiting, or diarrhea, No heartburn or reflux symptoms, and no blood : No history of dysuria, frequency or blood MUSCULOSKELETAL: Negative for new or changes in her typical joint pain or swelling, back pain or muscle pain SKIN: Negative for rash, and itching. Has a lesion of the left upper arm that scabs and then she picks at it. Noticed in in the last 6-12 months. Never resolves. Not tender or itchy. PSYCH: see Medicare sect. HEMATOLOGY/LYMPHOLOGY: Negative for prolonged bleeding, bruising easily or swollen nodes ENDOCRINE: Negative for cold or heat intolerance, polyuria, and goiter. Some NEURO: No history of headaches, syncope, paralysis, seizures or tremors SEE HPI EXAM: BP 138/74 Pulse 60 Resp 16 Ht 160 cm (5' 3) Wt 68.5 kg (151 lb) SpO2 96% BMI 26.75 kg/m? BP 138/74 Pulse 60 Resp 16 Ht 160 cm (5' 3) Wt 68.5 kg (151 lb) SpO2 96% BMI 26.75 kg/m? Last 5 Encounter Wt Readings: Date: Wt: 01/08/2025 68.5 kg (151 lb) 07/05/2024 68.9 kg (152 lb) 05/01/2024 64.4 kg (142 lb) 02/22/2024 67.6 kg (149 lb) 02/01/2024 65.8 kg (145 lb) General Appearance: Well appearing, alert, in no acute distress, well-hydrated, well nourished.. Skin: Skin color, texture, turgor normal, no suspicious rashes. Has a irritated growth on the left upper arm suspicious for SCC or BCC. Head: Normocephalic, no masses, lesions, tenderness or abnormalities. Eyes: Anicteric sclera. Pupils are equally round and reactive to light. Extraocular movements are intact. . Ears: External ears, and right TM normal, right canal is clear. Left canal blocked with wax. Nose/Sinuses: Nares normal, septum midline, mucosa normal, no drainage or sinus tenderness. Oropharynx: Lips, mucosa, and tongue normal, teeth and gums normal, oropharynx normal. Neck: Supple, no adenopathy; thyroid symmetric, normal size, no bruits. Lungs: Lungs clear to auscultation. No wheezing, rhonchi, rales.. Heart: RRR without murmur, gallop, or rubs. No ectopy. Abdomen: Normal abdominal exam, Abdomen soft, non-tender. Bowel sounds normal. No masses, organomegaly. Extremities: No deformities, edema, skin discoloration, clubbing or cyanosis. Good capillary refill. . Musculoskeletal: Muscular strength intact, No joint swelling, deformity, or tenderness. Peripheral Pulses: Normal. Neurologic: Gait normal. Reflexes normal and symmetric. Sensation to light touch and crainal nerves 2-12 intact.. [facility] Maintenance List Medicare Annual Wellness Visit due on 12/26/2024 DTaP,Tdap,Td Vaccine(4 - Td or Tdap) due on 01/08/2026 Covid-19 Vaccine( season) due on 01/08/2026 Depression Screening due on 01/08/2026 Diabetes Screening due on 01/07/2028 Bone Density Screening Completed Influenza Vaccine Completed Advance Directive Discussion Completed RSV Vaccine Completed Shingrix Vaccine Completed Pneumococcal Vaccine: 50+ Completed Data reviewed Latest Ref Rng 01/04/2024 01/19/2024 01/06/2025 WBC 3.70 - 11.00 k/uL 8.33 7.00 RBC 3.90 - 5.20 m/uL 4.69 4.78 Hemoglobin 11.5 - 15.5 g/dL 14.3 14.9 Hematocrit 36.0 - 46.0 % 42.8 44.7 MCV 80.0 - 100.0 fL 91.3 93.5 MCH 26.0 - 34.0 pg 30.5 31.2 MCHC 30.5 - 36.0 g/dL 33.4 33.3 RDW-CV 11.5 - 15.0 % 13.3 13.6 Platelet Count 150 - 400 k/uL 245 262 MPV 9.0 - 12.7 fL 10.6 10.3 Neut% % 79.8 74.9 Abs Neut (ANC) 1.45 - 7.50 k/uL 6.65 5.24 Lymph% % 13.0 16.4 Abs Lymph 1.00 - 4.00 k/uL 1.08 1.15 [place]% % 4.8 5.6 Abs [place] <0.87 k/uL 0.40 0.39 Eosin% % 1.3 2.1 Abs Eosin <0.46 k/uL 0.11 0.15 Baso% % 0.6 0.6 Abs Baso <0.11 k/uL 0.05 0.04 Immature Gran % % 0.5 0.4 IMMATURE GRANS (ABS) <0.10 k/uL 0.04 0.03 NRBC /100 WBC 0.0 0.0 Absolute nRBC <0.01 k/uL <0.01 <0.01 DTYPE Auto Auto Color Yellow Yellow Yellow Clarity Clear Clear Clear Glucose, Urine Negative Negative Negative Bilirubin, Urine Negative Negative Negative Ketones, Urine Negative Negative Negative Specific [place], Ur 1.005 - 1.030 1.011 1.019 Hemoglobin/Blood,Ur Negative Negative Negative pH, Urine <8.5 6.0 6.0 Protein, Urine Negative Negative Negative Urobilinogen 0.2-1.0 EU/dL 0.2 EU/dL 0.2 EU/dL Nitrites Negative Negative Negative Leukest Negative Negative 1+ ! WBC, Urine 0-5 /HPF 0-5 /HPF 0-5 /HPF RBC, Urine 0-2 /HPF 0-2 /HPF 0-2 /HPF Bacteria Negative /HPF Negative Negative Epithelial Cells /HPF None Seen Few Hyaline Cast 0 /LPF 0 /LPF 0 /LPF Protein, Total 6.3 - 8.0 g/dL 6.3 6.3 6.5 Albumin 3.9 - 4.9 g/dL 4.3 4.4 4.3 Calcium 8.5 - 10.2 mg/dL 9.8 9.3 9.6 Bilirubin, Total 0.2 - 1.3 mg/dL 0.7 0.6 0.5 Alkaline Phosphatase 34 - 123 U/L 75 79 72 AST 13 - 35 U/L 28 14 20 ALT 7 - 38 U/L 44 (H) 21 21 Glucose 74 - 99 mg/dL 143 (H) 152 (H) 126 (H) BUN 7 - 21 mg/dL 17 18 15 Creatinine 0.58 - 0.96 mg/dL 0.81 0.88 0.95 Sodium 136 - 144 mmol/L 141 137 143 Potassium 3.7 - 5.1 mmol/L 4.2 4.3 4.3 Chloride 98 - 107 mmol/L 107 101 107 CO2 22 - 30 mmol/L 21 (L) 21 (L) 23 Anion Gap 8 - 15 mmol/L 13 15 13 eGFR >=60 mL/min/1.73m? 71 64 58 (L) Total Cholesterol, Nonfasting <200 mg/dL 134 167 Triglycerides, Nonfasting <150 mg/dL 154 (H) 93 HDL Cholesterol, Nonfasting >39 mg/dL 43 74 LDL Cholesterol Calculated, Nonfasting <100 mg/dL 60 76 Non HDL Cholesterol, Nonfasting <130 mg/dL 91 93 VLDL Cholesterol, Nonfasting <30 mg/dL 31 (H) 14 Total Chol/HDL Ratio, Nonfasting <5.10 mg/dL 3.12 2.26 LDL/HDL Ratio, Nonfasting <2.54 mg/dL 1.40 1.03 TSH 0.270 - 4.200 mIU/L 2.680 Vitamin B12 232 - 1,245 pg/mL 502 Assessment and Plan 1. Medicare annual wellness visit, subsequent Comprehensive review of systems and physical examination performed. Discussed current health status, preventive measures, and future healthcare needs. - Encouraged patient to maintain adequate hydration, aiming for 56-64 ounces of water daily. - Discussed importance of staying up to date with vaccinations; recommended Tdap booster at pharmacy and COVID/flu vaccines on or after May 08. 2. Essential hypertension, benign Blood pressure readings are well-controlled at 142/80 and 138/74. Patient experiences occasional dizziness when changing positions. - Continue current management. - Monitor for any increase in dizziness or other symptoms. 3. Hyperlipidemia, mixed Lipid panel shows triglycerides at 93 mg/dL, HDL at 74 mg/dL, and LDL at 76 mg/dL, indicating good control. Continue current management. 4. Chronic systolic CHF (congestive heart failure) (HCC) No current symptoms of dyspnea, orthopnea, or edema reported. Continue current management. 5. Paroxysmal atrial fibrillation (HCC) Episodes of atrial fibrillation are less frequent and severe compared to last year. No associated symptoms such as dizziness, lightheadedness, or chest pain reported. Continue current management. Follows with cardio. 6. Adjustment disorder with depressed mood LIZZY (generalized anxiety disorder) Patient reports being able to engage in activities she enjoys and does not feel the need for medication adjustment at this time. Continue current management. 7. Smoker - pt aware of health risks. - avdised quitting. 8. Primary osteoarthritis involving multiple joints Chronic condition with no new symptoms reported. Continue current management. 9. Excessive ear wax, left Left ear canal is almost completely occluded with cerumen. - Discussed irrigation with wam water. Verbal consent provided. Left ear was irrigated with warm water for the removal of wax per nursing. Patient tolerated well. 10. 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 Differential diagnosis includes squamous cell carcinoma or basal cell carcinoma. - Scheduled excisional biopsy in a couple of weeks to remove the lesion and send it to pathology for evaluation. - Discussed procedure details, including making a football-shaped incision, removing the lesion, and sending it to pathology. - Explained that if margins are clear, no further treatment will be necessary. - Patient will have stitches placed and will return in 12-14 days for suture removal. 11. 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 Continue current management per her opthomologist. 12. Advance directive discussed with patient Patient has a will and has discussed future care plans with her children, who hold medical and financial power of wheat washer. Encouraged patient to en, sure plans are in place for her 's care in the event of her passing. 13. Screening for depression No significant depressive symptoms reported; patient is able to engage in activities she enjoys. Continue monitoring. 14. Medication management Current medications reviewed; patient reports occasional dizziness when changing positions. Continue current medication regimen. F/u next few weeks for excisional biopsy left upper arm. F/u 6 months routine check BMP and TSH prior. I spent a total of 40 minutes on the date of the service which included preparing to see the patient, [id number] patient care, completing clinical documentation, performing a medically appropriate examination, counseling and educating the patient/family/caregiver and ordering medications, tests, or procedures. Carl Rendon MD Recording using [employer] software for draft documentation of the visit was discussed with the patient/authorized service representative; all questions welcomed and answered. Patient/authorized service representative agreed to proceed URINALYSIS COMPLETE PNL UR Collected: 01/06/2025 10:1 0 AM Status: F Source: [facility] Order Comment: Specimen Type : URINE SPECIMEN Ordering Facility: [facility] Address: [address] [place] [address] TYPE CODE TESTS RESULT OUT OF RANGE REFERENCE UNITS LAB 5778-6(LOINC) Color Ur Yellow Yellow LAB 82421-4(LOINC) Clarity Spec Clear Clear LAB 5792-7(LOINC) Glucose Ur Strip-mCnc Negative Negative LAB 5770-3(LOINC) Bilirub Ur Ql Strip Negative Negative LAB 2514-8([facility]) Ketones Ur Strip Negative Negative LAB 5811-5([facility]) Sp Gr Ur Strip 1.019 1.005-1.030 LAB 5794-3([facility]) Hgb Ur Ql Strip Negative Negative LAB 5803-2([facility]) pH Ur Strip 6.0 <8.5 LAB 5804-0([facility]) Prot Ur Strip-mCnc Negative Negative LAB 5818-0([facility]) Urobilinogen Ur Strip 0.2 EU/dL 0.2-1.0 EU/dL LAB 5802-4([facility]) Nitrite Ur Ql Strip Negative Negative LAB 5799-2([facility]) Leukocyte esterase Ur Ql Strip 1+ Abnormal Negative LAB 5821-4([facility]) WBC #/area UrnS HPF 0-5 /HPF 0-5 /HPF LAB 53149-0([facility]) RBC #/area UrnS HPF 0-2 /HPF 0-2 /HPF LAB 5769-5([facility]) Bacteria #/area UrnS HPF Negative Negative /HPF LAB 5787-7([facility]) Epi Cells #/area UrnS HPF Few /HPF LAB 5796-8([facility]) Hyaline Casts #/area UrnS LPF 0 /LPF 0 /LPF Performed By: #### 62141-6 # ### [facility] CLIA [id number] [address] [place] [address] [place] CBC W AUTO DIFF BLD Collected: 01/06/2025 8:[address] atus: F Source: [facility] Order Comment: Specimen Type : BLOOD SPECIMEN Ordering Facility: [facility] Address: [address] [place] [address] TYPE CODE TESTS RESULT OUT OF RANGE REFERENCE UNITS LAB 6690-2([facility]) WBC # Bld Auto 7.00 3.70-11.00 k/uL LAB 789-8(INC) RBC # Bld Auto 4.78 3.90-5.20 m/ uL LAB 718-7([facility]) Hgb Bld-mCnc 14.9 11.5-15.5 g/dL LAB 4544-3([facility]) Hct VFr Bld Auto 44.7 36.0-46.0 % LAB 787-2([facility]) MCV RBC Auto 93.5 80.0-100.0 fL LAB 785-6([facility]) MCH RBC Qn Auto 31.2 26.0-34.0 p g LAB 786-4([facility]) MCHC RBC Auto-mCnc 33.3 30.5-36.0 g/dL LAB 79978-5([facility]) RDW RBC-Rto 13.6 11.5-15.0 % LAB 777-3([facility]) Platelet # Bld Auto 262 150-400 k/uL LAB 20240-4([facility]) PMV Bld Auto 10.3 9.0-12.7 fL LAB 770-8([facility]) Neutrophils/leuk NFr Bld Auto 74.9 % LAB 751-8([facility]) Neutrophils # Bld Auto 5.24 1.45-7.50 k/uL LAB 736-9([facility]) Lymphocytes/leuk NFr Bld Auto 16.4 % LAB 731-0([facility]) Lymphocytes # Bld Auto 1.15 1.00-4.00 k/uL LAB 5905-5([facility]) Monocytes/leuk NFr Bld Auto 5.6 % LAB 742-7([facility]) Monocytes # Bld Auto 0.39 <0.87 k/uL LAB 713-8([facility]) Eosinophil/leuk NFr Bld Auto 2.1 % LAB 711-2([facility]) Eosinophil # Bld Auto 0.15 <0.46 k/uL LAB 706-2([facility]) Basophils/leuk NFr Bld Auto 0.6 % LAB 704-7([facility]) Basophils # Bld Auto 0.04 <0.11 k/uL LAB 20848-4([facility]) Imm Granulocytes/paul k NFr Bld Auto 0.4 % LAB 88408-7([facility]) Imm Granulocytes # Bld Auto 0.03 <0.10 k/uL LAB 60202-4([facility]) nRBC/100 WBC Bld-Rto 0.0 /100 WBC LAB 771-6([facility]) nRBC # Bld Auto <0.01 <0.01 k/u L LAB 99712-8([facility]) Differential method Bld Auto Performed By: #### 46431-0 # ### [facility] CLIA [id number] [address] [place], [place] [address] [address] [place] COMP METAB 2000 PNL SERPL Collected: 8:00 AM Status: F Source: [facility] Order Comment: Specimen Type : BLOOD SPECIMEN Ordering Facility: [facility] Address: [address] [place] [address] TYPE CODE TESTS RESULT OUT OF RANGE REFERENCE UNITS LAB 2885-2(LOINC) Prot SerPl-mCnc 6.5 6.3-8.0 g/dL LAB 1751-7(LOINC) Albumin SerPl-mCnc 4.3 3.9-4.9 g/dL LAB 10402-3(LOINC) Calcium SerPl-mCnc 9.6 8.5-10.2 mg/dL LAB 1975-2(LOINC) Bilirub SerPl-mCnc 0.5 0.2-1.3 mg/dL LAB 6768-6(LOINC) ALP SerPl-cCnc 72 34-123 U/L LAB 1920-8(LOINC) AST SerPl-cCnc 20 13-35 U/L LAB 1742-6(LOINC) ALT SerPl-cCnc 21 7-38 U/L LAB 2345-7(LOINC) Glucose SerPl-mCnc 126 High 74-99 mg/dL Result Comment: The [place] Diabetes [employer] (ADA) provides guidance for cutoff values for fasting glucose and random glucose. The ADA defines fasting as no caloric intake for at least 8 hours. Fasting plasma glucose results between 100 to 125 mg/dL indicate increased risk for diabetes (prediabetes). Fasting plasma glucose results greater than or equal to 126 mg/dL meet the criteria for diagnosis of diabetes. In the absence of unequivocal hyperglycemia, results should be confirmed by repeat testing. In a patient with classic symptoms of hyperglycemia or hyperglycemic crisis, random plasma glucose results greater than or equal to 200 mg/dL meet the criteria for diagnosis of diabetes. Reference: Standards of Medical Care in Diabetes 2016, [place] [employer]. Diabetes Care. 2016.39(Suppl 1). LAB 3094-0(LOINC) BUN SerPl-mCnc 15 7-21 mg/ dL LAB 2160-0(LOINC) Creat SerPl-mCnc 0.95 0.58-0.96 mg/dL LAB 2951-2(LOINC) Sodium SerPl-sCnc 143 136-144 mmol/L LAB 2823-3(LOINC) Potassium SerPl-sCnc 4.3 3.7-5.1 mmol/L LAB 2075-0(LOINC) Chloride SerPl-sCnc 107 98-107 mmol/L LAB 2028-9(LOINC) CO2 SerPl-sCnc 23 22-30 mmo l/L LAB 34367-4(LOINC) Anion Gap SerPl-sCnc 13 8-15 mmol/L LAB 00888-1(LOINC) Creatinine + eGFR Pnl SerPlBld 58 Low >=60 mL/min/1 .73m??? Result Comment: Estimated Gl omerular Filtration Rate (eGFR) is calculated using the 2020 CKD-EPI creatinine equation. This equation utilizes serum creatinine, sex, and age as parameters. The creatinine assay has traceable calibration to isotope dilution-mass spectrometry. Refer to KDIGO guidelines for clinical interpretation. In patients with unstable renal function, e.g. those with acute kidney injury, the eGFR may not accurately reflect actual GFR. Performed By: #### LIPNF, 24 323-8 #### [facility] CLIA [id number] [address] [place] [address] [place] LIPID PANEL, NONFASTING Collected: 01/06/2025 8:00 AM Status: F Source: [facility] Order Comment: Specimen Type : BLOOD SPECIMEN Ordering Facility: [facility] Address: [address] [place] [address] TYPE CODE TESTS RESULT OUT OF RANGE REFERENCE UNITS LAB CHOLNF TOTAL CHOLESTEROL NF 167 <200 mg/dL Result Comment: <200 mg/dL, Desirable 200-239 mg/dL, Borderline high >239 mg/dL, High LAB TRIGNF TRIGLYCERIDES, NF 93 <150 mg/dL Result Comment: <150 mg/dL, Normal 150-199 mg/dL, Borderline high 200-499 mg/dL, High >499 mg/dL, Very high LAB HDLNF HDL CHOLESTEROL, NF 74 >39 mg/dL Result Comment: 40-59 mg/dL, Acceptable >59 mg/dL, High: Negative risk factor for coronary heart disease <40 mg/dL, Low: Positive risk factor for coronary heart disease LAB LDLNF LDL CHOLESTEROL CALCULATED, NF 76 <100 mg/dL Result Comment: <100 mg/dL, Optimal 100-129 mg/dL, Near optimal/above optimal 130-159 mg/dL, Borderline high 160-189 mg/dL, High >189 mg/dL, Very high Secondary prevention optimal LDL Cholesterol levels are recommended to be <70 mg/dL LDL cholesterol is calculated using the Abarca-NIH equation. LAB NOHDLN NON HDL CHOL, NF 93 <130 mg/dL Result Comment: <130 mg/dL, Optimal 130-159 mg/dL, Near optimal/above optimal 160-189 mg/dL, Borderline high 190-219 mg/dL, High >219 mg/dL, Very high Secondary prevention optimal non HDL Cholesterol levels are recommended to be <100 mg/dL LAB VLDLNF VLDL CHOLESTEROL, NF 14 <30 mg/dL LAB TCHDLN T CHOL/HDL RATIO NF 2.26 <5.10 mg/dL LAB LDLHDN LDL/HDL RATIO, NF 1.03 <2.54 mg/dL Result Comment: Reference: 1. National Cholesterol Education Program ATP III Guideline At-A-Glance Quick Desk Reference: National Heart, Lung, and Blood [place]. National Institutes of Health. 2001: NIH Publication No. 01-3305. 2. An International Atherosclerosis Society position paper: global recommendations for the management of dyslipidemia: executive summary, Atherosclerosis. 2014: 232(2):410-413. Performed By: #### LIPNF, 24 323-8 #### [facility] CLIA [id number] [address] [place] [address] [place] PROGRESS Observed: 07/05/2024 1:14 PM Status: COMPLETED Source: [facility] HNO ID: [id number] Author: DIONNA URIARTE PA-C Service: ? Author Type: Physician Rib Trim Separator Type: Progress Notes Filed: 07/05/2024 14:14 Note Text: Chief Complaint Patient presents with: Recheck HPI Cheryl Abarca is a 89 year old female who presents here today for Chronic Medical Conditions . Patient with hx of HTN, hyperlipidemia, a. Fib, CHF, OA, LIZZY, depression and those as below. Overall doing well. Past medical history, appointments, medications, allergies reviewed. Previous Medical History PAST MEDICAL HISTORY Diagnosis Date Acute systolic CHF (congestive heart failure) (HCC) 01/04/2024 Echo 12/29/23. EF 50% Adjustment disorder with depressed mood 04/08/2005 Advance directive discussed with patient 12/15/2021 Discussed 11/2021 Carpal tunnel syndrome, bilateral 03/14/2020 Cervical radiculopathy 03/14/2020 Chronic bronchitis (HCC) 05/31/2014 DDD (degenerative disc disease), cervical 03/14/2020 Diverticulitis of colon (without mention of hemorrhage)(562.11) Essential hypertension, benign 01/06/2008 Hyperlipidemia, mixed 03/30/2012 Internal hemorrhoids with other complication Living will on file 12/15/2021 DPA: Daniele () Major depressive disorder, single episode, unspecified Medicare annual wellness visit, subsequent 12/15/2021 Medicare Part B: 01/23/2002 Last Done: 12/15/2021 Sleep apnea 06/13/2013 mild sleep apnea. 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 PLC BREAST CLIP PERC Left breast TONSILLECTOMY PRIMARY/SECONDARY <AGE 14 Tonsillectomy Family History FAMILY HISTORY Problem Relation Age of Onset Prostate Cancer Father Psychiatry Mother Hypertension Mother Breast Cancer Maternal Grandmother Colon Cancer Maternal Grandfather Psychiatry Brother schizophrenic Arthritis Paternal Grandfather Rheumatoid Patient Allergies ALLERGIES Allergen Reactions Bactrim Ds [Sulfame* Rash Current Medications Current Outpatient Medications on File Prior to Visit Medication Sig amLODIPine (NORVASC) 5 mg tablet Take 1 tablet by mouth once daily. venlafaxine ER (EFFEXOR XR) 150 mg 24 hr capsule Take 1 capsule by mouth once daily. simvastatin (ZOCOR) 20 mg tablet Take 1 tablet by mouth daily at bedtime. busPIRone (BUSPAR) 7.5 mg tablet Take 1 tablet by mouth two times a day. calcium Carbonate 300 mg, 750mg, (TUMS) 300 mg (750 mg) chewable tablet Take 1 tablet by mouth two times a day. CHOLECALCIFEROL, VITAMIN D3, ORAL Take 2,000 Int'l Units/day by mouth once daily. amiodarone (PACERONE) 200 mg tablet Take 200 mg by mouth once daily. POTASSIUM ORAL Take 20 mEq by mouth once daily. furosemide (LASIX) 40 mg tablet Take 40 mg by mouth once daily. apixaban (ELIQUIS) 5 mg tab(s) Take 5 mg by mouth two times a day. losartan (COZAAR) 100 mg tablet Take 1 tablet by mouth once daily. metoprolol tartrate, short acting, (LOPRESSOR) 25 mg tablet Take 1 tablet by mouth two times a day. Per cardio, held per cardio 03/2024 No current facility-administered medications on file prior to visit. Social History Social History Tobacco Use Smoking status: Former Current packs/day: 0.00 Types: Pipe, Cigarettes Start date: 01/07/2006 Quit date: 12/27/2023 Years since quittin.5 Smokeless tobacco: Never Tobacco comments: Used to smoke cigarettes. Vaping Use Vaping status: Never Used Substance Use Topics Alcohol use: Yes Comment: wine- 4-6 oz 5 times a week Drug use: No Review of Symptoms REVIEW OF SYSTEMS GENERAL: No weight loss, malaise or fevers NECK: Negative for lumps, goiter, pain and significant neck swelling RESPIRATORY: Negative for cough, hemoptysis, wheezing, COPD, dyspnea or shortness of breath CARDIOVASCULAR: Negative for chest pain, leg swelling, hypertension, CHF or palpitations EXAM: BP 112/70 (BP Site: Left Arm, BP Position: Sitting, BP Cuff Size: Regular Adult) Pulse 63 Temp 36.7 ?C (98.1 ?F) Resp 16 Wt 68.9 kg (152 lb) SpO2 96% BMI 27.79 kg/m? General Appearance: Well appearing, alert, in no acute distress, well-hydrated, well nourished.. Neck: Supple, no adenopathy; thyroid symmetric, normal size, no bruits. Lungs: Lungs clear to auscultation. No wheezing, rhonchi, rales.. Heart: RRR without murmur, gallop, or rubs. No ectopy. Extremities: No deformities, edema, skin discoloration, clubbing or cyanosis. Good capillary refill. . Peripheral Pulses: Normal. Health Maintenance List DTaP,Tdap,Td Vaccine(4 - Td or Tdap) due on 03/30/2022 Depression Screening due on 12/26/2024 Diabetes Screening due on 01/18/2027 Bone Density Screening Completed Influenza Vaccine Completed Advance Directive Discussion Completed RSV Vaccine Completed Shingrix Vaccine Completed Covid-19 Vaccine Completed Pneumococcal Vaccine: 65+ Completed Data reviewed N/a ASSESSMENT/PLAN: 1. Hyperlipidemia, mixed - ICD9: 272.2, ICD10: E78.2 (primary diagnosis) - Controlled - Continue current medications - Counseled on healthy diet and regular exercise 2. Paroxysmal atrial fibrillation (HCC) - ICD9: 427.31, ICD10: I48.0 Cont with cardiology 3. Essential hypertension, benign - ICD9: 401.1, ICD10: I10 - Controlled - Continue current medications - Recommend home blood pressure monitoring, to bring results to next visit - Encouraged sodium restriction, DASH or Mediterranean diet - Recommend regular aerobic exercise 4. Sleep apnea, unspecified type - ICD9: 780.57, ICD10: G47.30 We discussed updated sleep study once she is back from [place]. Patient in agreement 5. Acute systolic CHF (congestive heart failure) (HCC) - ICD9: 428.21, 428.0, ICD10: I50.21 Cont with cardio Follow up in 6 months for wellness. Labs prior. LANA Bang Observed: 07/05/2024 1:00 PM Status: COMPLETED Source: [facility] Office Visit (FAMPWS) CHERYL ABARCA ([id number]) 1935 F Date Time Provider Department 07/05/24 1:00 PM DIONNA URIARTE During your visit today, we recorded the following information about you: Temperature Pulse Respiration Blood pressure 98.1 degrees 63/minute 16/minute 112/70 Weight 68.9 kg Dionna Uriarte PA-C 07/05/2024 2:14 PM Signed Chief Complaint Patient presents with: Recheck HPI Cheryl Abarca is a 89 year old female who presents here today for Chronic Medical Conditions . Patient with hx of HTN, hyperlipidemia, a. Fib, CHF, OA, LIZZY, depression and those as below. Overall doing well. Past medical history, appointments, medications, allergies reviewed. Previous Medical History PAST MEDICAL HISTORY Diagnosis Date Acute systolic CHF (congestive heart failure) (HCC) 01/04/2024 Echo 12/29/23. EF 50% Adjustment disorder with depressed mood 04/08/2005 Advance directive discussed with patient 12/15/2021 Discussed 11/2021 Carpal tunnel syndrome, bilateral 03/14/2020 Cervical radiculopathy 03/14/2020 Chronic bronchitis (HCC) 05/31/2014 DDD (degenerative disc disease), cervical 03/14/2020 Diverticulitis of colon (without mention of hemorrhage)(562.11) Essential hypertension, benign 01/06/2008 Hyperlipidemia, mixed 03/30/2012 Internal hemorrhoids with other complication Living will on file 12/15/2021 DPA: Daniele () Major depressive disorder, single episode, unspecified Medicare annual wellness visit, subsequent 12/15/2021 Medicare Part B: 01/23/2002 Last Done: 12/15/2021 Sleep apnea 06/13/2013 mild sleep apnea. 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 PLC BREAST CLIP PERC Left breast TONSILLECTOMY PRIMARY/SECONDARY <AGE 14 Tonsillectomy Family History FAMILY HISTORY Problem Relation Age of Onset Prostate Cancer Father Psychiatry Mother Hypertension Mother Breast Cancer Maternal Grandmother Colon Cancer Maternal Grandfather Psychiatry Brother schizophrenic Arthritis Paternal Grandfather Rheumatoid Patient Allergies ALLERGIES Allergen Reactions Bactrim Ds [Sulfame* Rash Current Medications Current Outpatient Medications on File Prior to Visit Medication Sig amLODIPine (NORVASC) 5 mg tablet Take 1 tablet by mouth once daily. venlafaxine ER (EFFEXOR XR) 150 mg 24 hr capsule Take 1 capsule by mouth once daily. simvastatin (ZOCOR) 20 mg tablet Take 1 tablet by mouth daily at bedtime. busPIRone (BUSPAR) 7.5 mg tablet Take 1 tablet by mouth two times a day. calcium Carbonate 300 mg, 750mg, (TUMS) 300 mg (750 mg) chewable tablet Take 1 tablet by mouth two times a day. CHOLECALCIFEROL, VITAMIN D3, ORAL Take 2,000 Int'l Units/day by mouth once daily. amiodarone (PACERONE) 200 mg tablet Take 200 mg by mouth once daily. POTASSIUM ORAL Take 20 mEq by mouth once daily. furosemide (LASIX) 40 mg tablet Take 40 mg by mouth once daily. apixaban (ELIQUIS) 5 mg tab(s) Take 5 mg by mouth two times a day. losartan (COZAAR) 100 mg tablet Take 1 tablet by mouth once daily. metoprolol tartrate, short acting, (LOPRESSOR) 25 mg tablet Take 1 tablet by mouth two times a day. Per cardio, held per cardio 03/2024 No current facility-administered medications on file prior to visit. Social History Social History Tobacco Use Smoking status: Former Current packs/day: 0.00 Types: Pipe, Cigarettes Start date: 01/07/2006 Quit date: 12/27/2023 Years since quittin.5 Smokeless tobacco: Never Tobacco comments: Used to smoke cigarettes. Vaping Use Vaping status: Never Used Substance Use Topics Alcohol use: Yes Comment: wine- 4-6 oz 5 times a week Drug use: No Review of Symptoms REVIEW OF SYSTEMS GENERAL: No weight loss, malaise or fevers NECK: Negative for lumps, goiter, pain and significant neck swelling RESPIRATORY: Negative for cough, hemoptysis, wheezing, COPD, dyspnea or shortness of breath CARDIOVASCULAR: Negative for chest pain, leg swelling, hypertension, CHF or palpitations EXAM: BP 112/70 (BP Site: Left Arm, BP Position: Sitting, BP Cuff Size: Regular Adult) Pulse 63 Temp 36.7 ?C (98.1 ?F) Resp 16 Wt 68.9 kg (152 lb) SpO2 96% BMI 27.79 kg/m? General Appearance: Well appearing, alert, in no acute distress, well-hydrated, well nourished.. Neck: Supple, no adenopathy; thyroid symmetric, normal size, no bruits. Lungs: Lungs clear to auscultation. No wheezing, rhonchi, rales.. Heart: RRR without murmur, gallop, or rubs. No ectopy. Extremities: No deformities, edema, skin discoloration, clubbing or cyanosis. Good capillary refill. . Peripheral Pulses: Normal. Health Maintenance List DTaP,Tdap,Td Vaccine(4 - Td or Tdap) due on 03/30/2022 Depression Screening due on 12/26/2024 Diabetes Screening due on 01/18/2027 Bone Density Screening Completed Influenza Vaccine Completed Advance Directive Discussion Completed RSV Vaccine Completed Shingrix Vaccine Completed Covid-19 Vaccine Completed Pneumococcal Vaccine: 65+ Completed Data reviewed N/a ASSESSMENT/PLAN: 1. Hyperlipidemia, mixed - ICD9: 272.2, ICD10: E78.2 (primary diagnosis) - Controlled - Continue current medications - Counseled on healthy diet and regular exercise 2. Paroxysmal atrial fibrillation (HCC) - ICD9: 427.31, ICD10: I48.0 Cont with cardiology 3. Essential hypertension, benign - ICD9: 401.1, ICD10: I10 - Controlled - Continue current medications - Recommend home blood pressure monitoring, to bring results to next visit - Encouraged sodium restriction, DASH or Mediterranean diet - Recommend regular aerobic exercise 4. Sleep apnea, unspecified type - ICD9: 780.57, ICD10: G47.30 We discussed updated sleep study once she is back from [place]. Patient in agreement 5. Acute systolic CHF (congestive heart failure) (HCC) - ICD9: 428.21, 428.0, ICD10: I50.21 Cont with cardio Follow up in 6 months for wellness. Labs prior. Dionna Uriarte PA-C Allergies As of Date: 07/05/2024 Noted Allergy Reaction BACTRIM DS (SULFAMETHOXAZOLE-TRIM*01/04/2008 2 - Rash Date Reviewed: 07/05/2024 Reviewed by: Eulogio Kennedy LPN - Fully Assessed Reason for Visit: Recheck [92] Primary Visit Diagnosis:Hyperlipidemia, mixed [E78.2] Other Visit Diagnoses:Paroxysmal atrial fibrillation (HCC) [I48.0] Essential hypertension, benign [I10] Sleep apnea, unspecified type [G47.30] Acute systolic CHF (congestive heart failure) (HCC) [I50.21] Order(s):losartan (COZAAR) 100 mg tabletTake 1 tablet by mouth once daily.Disp: 90 tabletRfl: 1 LIPID PANEL, NONFASTING [SQLIPNF] Order #: [id number] FUTURE COMPREHENSIVE METABOLIC PANEL [SQCMP] Order #: [id number] FUTURE COMPLETE BLOOD COUNT AND DIFFERENTIAL [SQCBCDIF] Order #: [id number] FUTURE URINALYSIS, WITH MICROSCOPIC [SQUAWMIC] Order #: [id number] FUTURE Prescriptions as of 07/05/2024 - losartan (COZAAR) 100 mg tablet Take 1 tablet by mouth once daily. - amLODIPine (NORVASC) 5 mg tablet Take 1 tablet by mouth once daily. - venlafaxine ER (EFFEXOR XR) 150 mg 24 hr capsule Take 1 capsule by mouth once daily. - simvastatin (ZOCOR) 20 mg tablet Take 1 tablet by mouth daily at bedtime. - busPIRone (BUSPAR) 7.5 mg tablet Take 1 tablet by mouth two times a day. - calcium Carbonate 300 mg, 750mg, (TUMS) 300 mg (750 mg) chewable tablet Take 1 tablet by mouth two times a day. - CHOLECALCIFEROL, VITAMIN D3, ORAL Take 2,000 Int'l Units/day by mouth once daily. - amiodarone (PACERONE) 200 mg tablet Take 200 mg by mouth once daily. - POTASSIUM ORAL Take 20 mEq by mouth once daily. - furosemide (LASIX) 40 mg tablet Take 40 mg by mouth once daily. - apixaban (ELIQUIS) 5 mg tab(s) Take 5 mg by mouth two times a day. Problem List As Of Date 07/05/2024 Noted Resolved Iron deficiency anemia [D50.9] 04/08/2005 06/03/2015 Adjustment disorder with depressed mood [F43.21]04/08/2005 Essential hypertension, benign [I10] 01/06/2008 Hyperlipidemia, mixed [E78.2] 03/30/2012 Supraspinatus tendonitis [M75.90] 06/13/2013 06/04/2016 Sleep apnea [G47.30] 06/13/2013 Smoker [F17.200] 06/13/2013 Vasomotor rhinitis [J30.0] 06/03/2015 Cervical radiculopathy [M54.12] 03/14/2020 DDD (degenerative disc disease), cervical [M50.*03/14/2020 Carpal tunnel syndrome, bilateral [G56.03] 03/14/2020 Medication management [Z79.899] 04/28/2021 Living will on file [[id number]] 12/15/2021 Advance directive discussed with patient [Z71.8*12/15/2021 Medicare annual wellness visit, subsequent [Z00*12/15/2021 Acute pain of right shoulder [M25.511] 12/19/2021 12/27/2023 Right hip pain [M25.551] 12/19/2021 Acute pain of both knees [M25.561, M25.562] 12/30/2022 12/27/2023 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 Paroxysmal atrial fibrillation (HCC) [I48.0] 01/04/2024 Acute systolic CHF (congestive heart failure) (*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 Medications Discontinued During This Encounter Prescriptions - metoprolol tartrate, short acting, (LOPRESSOR) 25 mg tablet (Discontinued) Take 1 tablet by mouth two times a day. Per cardio, held per cardio 03/2024 - losartan (COZAAR) 100 mg tablet (Discontinued) Take 1 tablet by mouth once daily. Level of Service: OFFICE/OUTPATIENT ESTABLISHED MOD MDM 30 MIN [17906] Additional E/M codes: VISIT CPLX INHERENT EANDM ASSOC WITH MED * Disposition: Return in about 6 months (around 01/03/2025) for Medicare wellness with Dr. Rendon. Follow-up and Disposition History for Encounter Date Provider Department Center 07/05/2024 [id number]-FADZYTOVDIONNA URIARTE [facility] Encounter Status:Closed by DIONNA BROWN on 07/05/24 CNOV Observed: 05/01/2024 12:00 PM Status: COMPLETED Source: [facility] Office Visit (INDIRA) CHERYL ABARCA ([id number]) 1935 F Date Time Provider Department 05/01/24 12:00 PM ALEJANDRA CAMACHO During your visit today, we recorded the following information about you: Temperature Pulse Respiration Blood pressure 97.1 degrees 72/minute 16/minute 123/80 Weight 64.4 kg Alejandra Camacho APRN.SHINGLES ROOFER 05/01/2024 12:10 PM Signed Chief Complaint Patient presents with: Covid Positive: Tested positive Wednesday with home test HPI Cheryl Abarca is a 89 year old female who presents here today for Above Complaints.. Patient presents for positive covid test at home on Wednesday. Patient reports Wednesday she began to feel achy and have a sore throat. Currently reports rhinorrhea, cough, body aches, fatigue, and headache. Past medical history, appointments, medications, allergies reviewed. Previous Medical History PAST MEDICAL HISTORY Diagnosis Date Acute systolic CHF (congestive heart failure) (HCC) 01/04/2024 Echo 12/29/23. EF 50% Adjustment disorder with depressed mood 04/08/2005 Advance directive discussed with patient 12/15/2021 Discussed 11/2021 Carpal tunnel syndrome, bilateral 03/14/2020 Cervical radiculopathy 03/14/2020 Chronic bronchitis (HCC) 05/31/2014 DDD (degenerative disc disease), cervical 03/14/2020 Diverticulitis of colon (without mention of hemorrhage)(562.11) Essential hypertension, benign 01/06/2008 Hyperlipidemia, mixed 03/30/2012 Internal hemorrhoids with other complication Living will on file 12/15/2021 DPA: Daniele () Major depressive disorder, single episode, unspecified Medicare annual wellness visit, subsequent 12/15/2021 Medicare Part B: 01/23/2002 Last Done: 12/15/2021 Sleep apnea 06/13/2013 mild sleep apnea. 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 PLC BREAST CLIP PERC Left breast TONSILLECTOMY PRIMARY/SECONDARY <AGE 14 Tonsillectomy Family History FAMILY HISTORY Problem Relation Age of Onset Prostate Cancer Father Psychiatry Mother Hypertension Mother Breast Cancer Maternal Grandmother Colon Cancer Maternal Grandfather Psychiatry Brother schizophrenic Arthritis Paternal Grandfather Rheumatoid Patient Allergies ALLERGIES Allergen Reactions Bactrim Ds [Sulfame* Rash Current Medications Current Outpatient Medications on File Prior to Visit Medication Sig metoprolol tartrate, short acting, (LOPRESSOR) 25 mg tablet Take 1 tablet by mouth two times a day. Per cardio, held per cardio 03/2024 busPIRone (BUSPAR) 7.5 mg tablet Take 1 tablet by mouth two times a day. calcium Carbonate 300 mg, 750mg, (TUMS) 300 mg (750 mg) chewable tablet Take 1 tablet by mouth two times a day. CHOLECALCIFEROL, VITAMIN D3, ORAL Take 2,000 Int'l Units/day by mouth once daily. venlafaxine ER (EFFEXOR XR) 150 mg 24 hr capsule Take 1 capsule by mouth once daily. amiodarone (PACERONE) 200 mg tablet Take 200 mg by mouth once daily. POTASSIUM ORAL Take 20 mEq by mouth once daily. furosemide (LASIX) 40 mg tablet Take 40 mg by mouth once daily. apixaban (ELIQUIS) 5 mg tab(s) Take 5 mg by mouth two times a day. simvastatin (ZOCOR) 20 mg tablet Take 1 tablet by mouth daily at bedtime. losartan (COZAAR) 100 mg tablet Take 1 tablet by mouth once daily. amLODIPine (NORVASC) 5 mg tablet Take 1 tablet by mouth once daily. No current facility-administered medications on file prior to visit. Social History Social History Tobacco Use Smoking status: Former Current packs/day: 0.00 Types: Pipe, Cigarettes Start date: 01/07/2006 Quit date: 12/27/2023 Years since quittin.3 Smokeless tobacco: Never Tobacco comments: Used to smoke cigarettes. Vaping Use Vaping status: Never Used Substance Use Topics Alcohol use: Yes Comment: wine- 4-6 oz 5 times a week Drug use: No Review of Symptoms REVIEW OF SYSTEMS SEE HPI EXAM: BP 123/80 Pulse 72 Temp 36.2 ?C (97.1 ?F) Resp 16 Wt 64.4 kg (142 lb) SpO2 97% BMI 25.97 kg/m? General Appearance: Well appearing, alert, in no acute distress, well-hydrated, well nourished.. Nose/Sinuses: Positive findings: mucosa erythematous and swollen, clear rhinorrhea. Oropharynx: Lips, mucosa, and tongue normal, teeth and gums normal, oropharynx normal. Lungs: Lungs clear to auscultation. No wheezing, rhonchi, rales.. Heart: RRR without murmur, gallop, or rubs. No ectopy. Peripheral Pulses: Normal. Health Maintenance List DTaP,Tdap,Td Vaccine(4 - Td or Tdap) due on 03/30/2022 Influenza Vaccine(1) due on 03/26/2024 Depression Screening due on 12/26/2024 Diabetes Screening due on 01/18/2027 Bone Density Screening Completed Advance Directive Discussion Completed RSV Vaccine Completed Shingrix Vaccine Completed Covid-19 Vaccine Completed Pneumococcal Vaccine: 65+ Completed ASSESSMENT/PLAN: 1. COVID-19 - ICD9: 079.89, ICD10: U07.1 -Reviewed patient medications and multiple severe drug to drug interactions. Discussed with patient who verbalized understanding. At this time paxlovid is not appropriate and patient is having mild symptoms no red flag symptoms. Alejandra Camacho, CARINA.SHINGLES ROOFER Allergies As of Date: 05/01/2024 Noted Allergy Reaction BACTRIM DS (SULFAMETHOXAZOLE-TRIM*01/04/2008 2 - Rash Date Reviewed: 05/01/2024 Reviewed by: Callie Sena MA - Fully Assessed Reason for Visit: Covid Positive [4049] Cmt: Tested positive Wednesday with home test Primary Visit Diagnosis:COVID-19 [U07.1] Prescriptions as of 05/01/2024 - metoprolol tartrate, short acting, (LOPRESSOR) 25 mg tablet Take 1 tablet by mouth two times a day. Per cardio, held per cardio 03/2024 - busPIRone (BUSPAR) 7.5 mg tablet Take 1 tablet by mouth two times a day. - calcium Carbonate 300 mg, 750mg, (TUMS) 300 mg (750 mg) chewable tablet Take 1 tablet by mouth two times a day. - CHOLECALCIFEROL, VITAMIN D3, ORAL Take 2,000 Int'l Units/day by mouth once daily. - venlafaxine ER (EFFEXOR XR) 150 mg 24 hr capsule Take 1 capsule by mouth once daily. - amiodarone (PACERONE) 200 mg tablet Take 200 mg by mouth once daily. - POTASSIUM ORAL Take 20 mEq by mouth once daily. - furosemide (LASIX) 40 mg tablet Take 40 mg by mouth once daily. - apixaban (ELIQUIS) 5 mg tab(s) Take 5 mg by mouth two times a day. - simvastatin (ZOCOR) 20 mg tablet Take 1 tablet by mouth daily at bedtime. - losartan (COZAAR) 100 mg tablet Take 1 tablet by mouth once daily. - amLODIPine (NORVASC) 5 mg tablet Take 1 tablet by mouth once daily. 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] 06/03/2015 Cervical radiculopathy [M54.12] 03/14/2020 DDD (degenerative disc disease), cervical [M50.*03/14/2020 Carpal tunnel syndrome, bilateral [G56.03] 03/14/2020 Medication management [Z79.899] 04/28/2021 Living will on file [[id number]] 12/15/2021 Advance directive discussed with patient [Z71.8*12/15/2021 Medicare annual wellness visit, subsequent [Z00*12/15/2021 Acute pain of right shoulder [M25.511] 12/19/2021 12/27/2023 Right hip pain [M25.551] 12/19/2021 Acute pain of both knees [M25.561, M25.562] 12/30/2022 12/27/2023 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 Paroxysmal atrial fibrillation (HCC) [I48.0] 01/04/2024 Acute systolic CHF (congestive heart failure) (*01/04/2024 half-way current use of anticoagulant therapy *01/04/2024 LIZZY (generalized anxiety disorder) [F41.1] 02/01/2024 Disposition: Return if symptoms worsen or fail to improve. Follow-up and Disposition History for Encounter Date Provider Department Center 05/01/2024 [id number] CAMACHO [facility] Encounter Status:Closed by ALEJANDRA CAMACHO on 05/01/24 PROGRESS Observed: 05/01/2024 11:56 AM Status: COMPLETED Source: [facility] HNO ID: [id number] Author: ALEJANDRA CAMACHO APRN.SHINGLES ROOFER Service: ? Author Type: Nurse Practitioner Type: Progress Notes Filed: 05/01/2024 12:10 Note Text: Chief Complaint Patient presents with: Covid Positive: Tested positive Wednesday with home test HPI Cheryl Abarca is a 89 year old female who presents here today for Above Complaints.. Patient presents for positive covid test at home on Wednesday. Patient reports Wednesday she began to feel achy and have a sore throat. Currently reports rhinorrhea, cough, body aches, fatigue, and headache. Past medical history, appointments, medications, allergies reviewed. Previous Medical History PAST MEDICAL HISTORY Diagnosis Date Acute systolic CHF (congestive heart failure) (HCC) 01/04/2024 Echo 12/29/23. EF 50% Adjustment disorder with depressed mood 04/08/2005 Advance directive discussed with patient 12/15/2021 Discussed 11/2021 Carpal tunnel syndrome, bilateral 03/14/2020 Cervical radiculopathy 03/14/2020 Chronic bronchitis (HCC) 05/31/2014 DDD (degenerative disc disease), cervical 03/14/2020 Diverticulitis of colon (without mention of hemorrhage)(562.11) Essential hypertension, benign 01/06/2008 Hyperlipidemia, mixed 03/30/2012 Internal hemorrhoids with other complication Living will on file 12/15/2021 DPA: Daniele () Major depressive disorder, single episode, unspecified Medicare annual wellness visit, subsequent 12/15/2021 Medicare Part B: 01/23/2002 Last Done: 12/15/2021 Sleep apnea 06/13/2013 mild sleep apnea. 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 PLC BREAST CLIP PERC Left breast TONSILLECTOMY PRIMARY/SECONDARY <AGE 14 Tonsillectomy Family History FAMILY HISTORY Problem Relation Age of Onset Prostate Cancer Father Psychiatry Mother Hypertension Mother Breast Cancer Maternal Grandmother Colon Cancer Maternal Grandfather Psychiatry Brother schizophrenic Arthritis Paternal Grandfather Rheumatoid Patient Allergies ALLERGIES Allergen Reactions Bactrim Ds [Sulfame* Rash Current Medications Current Outpatient Medications on File Prior to Visit Medication Sig metoprolol tartrate, short acting, (LOPRESSOR) 25 mg tablet Take 1 tablet by mouth two times a day. Per cardio, held per cardio 03/2024 busPIRone (BUSPAR) 7.5 mg tablet Take 1 tablet by mouth two times a day. calcium Carbonate 300 mg, 750mg, (TUMS) 300 mg (750 mg) chewable tablet Take 1 tablet by mouth two times a day. CHOLECALCIFEROL, VITAMIN D3, ORAL Take 2,000 Int'l Units/day by mouth once daily. venlafaxine ER (EFFEXOR XR) 150 mg 24 hr capsule Take 1 capsule by mouth once daily. amiodarone (PACERONE) 200 mg tablet Take 200 mg by mouth once daily. POTASSIUM ORAL Take 20 mEq by mouth once daily. furosemide (LASIX) 40 mg tablet Take 40 mg by mouth once daily. apixaban (ELIQUIS) 5 mg tab(s) Take 5 mg by mouth two times a day. simvastatin (ZOCOR) 20 mg tablet Take 1 tablet by mouth daily at bedtime. losartan (COZAAR) 100 mg tablet Take 1 tablet by mouth once daily. amLODIPine (NORVASC) 5 mg tablet Take 1 tablet by mouth once daily. No current facility-administered medications on file prior to visit. Social History Social History Tobacco Use Smoking status: Former Current packs/day: 0.00 Types: Pipe, Cigarettes Start date: 01/07/2006 Quit date: 12/27/2023 Years since quittin.3 Smokeless tobacco: Never Tobacco comments: Used to smoke cigarettes. Vaping Use Vaping status: Never Used Substance Use Topics Alcohol use: Yes Comment: wine- 4-6 oz 5 times a week Drug use: No Review of Symptoms REVIEW OF SYSTEMS SEE HPI EXAM: BP 123/80 Pulse 72 Temp 36.2 ?C (97.1 ?F) Resp 16 Wt 64.4 kg (142 lb) SpO2 97% BMI 25.97 kg/m? General Appearance: Well appearing, alert, in no acute distress, well-hydrated, well nourished.. Nose/Sinuses: Positive findings: mucosa erythematous and swollen, clear rhinorrhea. Oropharynx: Lips, mucosa, and tongue normal, teeth and gums normal, oropharynx normal. Lungs: Lungs clear to auscultation. No wheezing, rhonchi, rales.. Heart: RRR without murmur, gallop, or rubs. No ectopy. Peripheral Pulses: Normal. Health Maintenance List DTaP,Tdap,Td Vaccine(4 - Td or Tdap) due on 03/30/2022 Influenza Vaccine(1) due on 03/26/2024 Depression Screening due on 12/26/2024 Diabetes Screening due on 01/18/2027 Bone Density Screening Completed Advance Directive Discussion Completed RSV Vaccine Completed Shingrix Vaccine Completed Covid-19 Vaccine Completed Pneumococcal Vaccine: 65+ Completed ASSESSMENT/PLAN: 1. COVID-19 - ICD9: 079.89, ICD10: U07.1 -Reviewed patient medications and multiple severe drug to drug interactions. Discussed with patient who verbalized understanding. At this time paxlovid is not appropriate and patient is having mild symptoms no red flag symptoms. Alejandra Camacho, AERODYNAMICS ENGINEER.SHINGLES ROOFER ALLERGIES DATE TYPE / CODE NAME / CODE REACTION SEVERITY SOURCE 01/04/2008 DRUG/[id number](SN OMED CT) SULFAMETHOXAZOLE- TRIMETHOPRIM RASH Med [facility] ENCOUNTERS ADMIT/DISCHARGE ACCOUNT NUMBER ADMITTING ENCOUNTER CLASS LOC ATION SOURCE 04/25/2025/ 5 [id number] [facility] 04/17/2025 [id number] [facility] 04/17/2025 [id number] [facility] 04/16/2025/ 5 [id number] [facility] 04/16/2025/ 5 [id number] [facility] 03/13/2025/ 5 [id number] [facility] ing:[facility] 02/07/2025/ 5 [id number] [facility] 02/05/2025/ 5 [id number] [facility] Hospital[facility] ing:[facility] 01/25/2025/ 5 [id number] [facility] ing:[facility] 01/08/2025/ 5 [id number] [facility] ing:[facility] 01/06/2025/ 5 [id number] Ambulatory [facility] ing:L[facility] 07/05/2024/ 4 [id number] Ambulatory [facility] HospitalBuild ing:PEEWEE [facility] 05/01/2024/ 4 [id number] [facility] ENCOUNTER GUARANTOR PAYER SUBSCRIBER SOURCE 04/25/2025 Primary Insuranc e:MEDICARE A AND BPolicy Number: [id number] Date:4060-61-21Kkcq Name:Iris QUINN: [id number] [place] [address] [facility] 04/25/2025 Secondary Insura nce:HUMANA MEDICARE SUPPLEMENTPolicy Number: [id number] Date:9976-03-03Vkob Name:Amaury CHERYL QUINN: [id number] [place] [address] [facility] 04/17/2025 Primary Insuranc e:MEDICARE A AND BPolicy Number: [id number] Date:4816-97-61Okma Name:Iris CHERYL QUINN: [id number] [place] [address] [facility] 04/17/2025 Secondary Insura nce:HUMANA MEDICARE SUPPLEMENTPolicy Number: [id number] Date:5118-44-37Amyo Name:Amaury CHERYL QUINN: [id number] [place] [address] [facility] 04/17/2025 Primary Insuranc e:MEDICARE A AND BPolicy Number: [id number] Date:6690-98-79Xbhs Name:Iris CHERYL QUINN: [id number] [place] [address] [facility] 04/17/2025 Secondary Insura nce:HUMANA MEDICARE SUPPLEMENTPolicy Number: [id number] Date:8851-68-93Agew Name:Amaury QUINN: [id number] [place] [address] [facility] 04/16/2025 Primary Insuranc e:MEDICARE A AND BPolicy Number: [id number] Date:6333-30-58Snaa Name:Iris ABARCAERICA: [id number] [place] [address] [facility] 04/16/2025 Secondary Insura nce:HUMANA MEDICARE SUPPLEMENTPolicy Number: [id number] Date:0100-13-76Kbbk Name:Amaury Gold [place]: [id number] [place] [address] [facility] 04/16/2025 Primary Insuranc e:MEDICARE A AND BPolicy Number: [id number] Date:1121-06-30Crth Name:Iris Gold [place]: [id number] [place] [address] [facility] 04/16/2025 Secondary Insura nce:HUMANA MEDICARE SUPPLEMENTPolicy Number: [id number] Date:8116-18-89Lnwd Name:Amaury Gold [place]: [id number] [place] [address] [facility] 03/13/2025 Primary Insuranc e:MEDICARE A AND BPolicy Number: [id number] Date:6641-69-03Rcys Name:Iris Gold NESSJOSEERICA: [id number] [place] [address] [facility] 03/13/2025 Secondary Insura nce:HUMANA MEDICARE SUPPLEMENTPolicy Number: [id number] Date:9137-84-47Podv Name:Amaury QUINN: [id number] [place] [address] [facility] 02/07/2025 Primary Insuranc e:MEDICARE A AND BPolicy Number: [id number] Date:2253-12-33Rjjd Name:Iris QUINN: [id number] [place] [address] [facility] 02/07/2025 Secondary Insura nce:HUMANA MEDICARE SUPPLEMENTPolicy Number: [id number] Date:8294-37-00Zayl Name:Amaury QUINN: [id number] [place] [address] [facility] 02/05/2025 Primary Insuranc e:MEDICARE A AND BPolicy Number: [id number] Date:6395-05-33Hneh Name:Iris QUINN: [id number] [place] [address] [facility] 02/05/2025 Secondary Insura nce:HUMANA MEDICARE SUPPLEMENTPolicy Number: [id number] Date:3087-43-37Iivo Name:Amaury QUINN: [id number] [place] [address] [facility] 01/25/2025 Primary Insuranc e:MEDICARE A AND BPolicy Number: [id number] Date:3906-68-01Osye Name:Iris QUINN: [id number] [place] [address] [facility] 01/25/2025 Secondary Insura nce:HUMANA MEDICARE SUPPLEMENTPolicy Number: [id number] Date:1941-37-66Okuq Name:Amaury QUINN: [id number] [place] [address] [facility] 01/08/2025 Primary Insuranc e:MEDICARE A AND BPolicy Number: [id number] Date:6802-07-77Cwej Name:Iris QUINN: [id number] [address] [facility] [place] [address] [facility] 01/08/2025 Secondary Insura nce:HUMANA MEDICARE SUPPLEMENTPolicy Number: [id number] Date:4446-53-52Jnvd Name:Amaury QUINN: [id number] [address] [facility] [place] [address] [facility] 01/06/2025 Primary Insuranc e:MEDICARE A AND BPolicy Number: [id number] Date:1739-43-63Kzwu Name:Iris QUINN: [id number] [address] [employer] [address] [place] [address] [facility] 01/06/2025 Secondary Insura nce:HUMANA MEDICARE SUPPLEMENTPolicy Number: [id number] Date:1251-52-60Bhaw Name:Amaury QUINN: [id number] [address] [employer] [address] [place] [address] [facility] 07/05/2024 Primary Insuranc e:MEDICARE A AND BPolicy Number: [id number] Date:1804-95-23Bdni Name:Iris QUINN: [id number] [id number] [place] [address] 07/05/2024 Secondary Insura nce:HUMANA MEDICARE SUPPLEMENTPolicy Number: [id number] Date:4375-24-07Bdcl Name:Amaury QUINN: [id number] [id number] [place] [address] 05/01/2024 Primary Insuranc e:MEDICARE A AND BPolicy Number: [id number] Date:1633-10-50Jvio Name:Iris QUINN: [id number] [address] [address] [facility] 05/01/2024 Secondary Insura nce:HUMANA MEDICARE SUPPLEMENTPolicy Number: [id number] Date:5205-79-90Sgvk Name:Amaury QUINN: [id number] [address] [address] [facility]
== END | disposition home or self-care (01) ==
LOC: LAB 10:48
PROVIDERS: PCP Family Medicine; Referring Provider Student in an Organized Health Care Education/Training Program; Visit Provider Student in an Organized Health Care Education/Training Program
DX: I10 Essential (primary) hypertension (principal)
CPT/HCPCS: 36415; 80048

== ENCOUNTER 2025-05-02 10:26 | Emergency (ER) | payer MEDICARE, OTHER, SELFPAY ==
[2025-05-02 10:28] VITALS: BP 138/97; PULSE 128; RESP 24; TEMP 36.4; O2SAT 97; BMI 28.4
[2025-05-02 10:38] VITALS: O2SAT 96
--- NOTE | 2025-05-02 10:47 | ED.VIS.DYS ---
HPI History of Present Illness Chief Complaint: Shortness of Breath Detail of Chief Complaint: Dyspnea, dyspnea on exertion and increased orthopnea Informant: patient and spouse/S.O. Onset/Context/Timing Onset: Weeks Context: gradual Timing: Continuous and Waxes and wanes Quality: Positive for Dyspnea on exertion and Orthopnea; Negative for PND or Wheezing Current Severity: Gone Maximum Severity: Moderate Worsened by: Exertion and Lying flat; Not Worsened By Coughing Relieved by: Nothing Associated Symptoms Negative for cough, rhinorrhea, post nasal drip, ear pain, fever, sore throat, subjective, chills or sweats Chest Pain: Positive for None Narrative Narrative: Patient is an 89-year-old woman. She is on anticoagulant for paroxysmal atrial fibrillation. She states her furosemide was recently changed to torsemide. She is not certain of the strength. There is also history of hypertension, hypercholesterolemia. She is on metoprolol 25 mg twice daily. She is also on an amiodarone. She had a recent visit with cardiology. No authored by Dontrell Luque was reviewed. Patient was hospitalized in December for congestive heart failure exacerbation. She also had A-fib with RVR. She spontaneously converted during her hospital stay. She had a recent CTA of her chest that revealed no evidence of pulmonary embolus or evidence of heart strain. There was small bilateral pleural effusions noted with interstitial edema noted as well. There is also mild cardiomegaly. Echocardiogram was performed December 28, 2023. Estimated EF was 50%. There is mild concentric left ventricular hypertrophy. Bubble contrast study was negative for gnqbl-tu-[id number] intra-arterial shunt. She does have stage III diastolic dysfunction noted. Patient presents with a couple of weeks of dyspnea with activity and orthopnea. She states she sleeps with a large pillow and sofa pillow. She has had some swelling of her legs. She states her diuretic was recently changed. She denies chest pressure, tightness, heaviness or any type of chest pain. She denies fever, chills or night sweats. She has had no weight gain or weight loss to her knowledge. She denies abdominal pain, nausea, vomit or diarrhea. Denies black or maroon-colored stool. She is on apixaban 5 mg twice daily. PE Risk Factors: Negative for Cancer, OCP + Smoking + > 35, Prior DVT or PE, Recent immobilization, Recent surgery or Recent travel Prior similar symptoms: Yes Recent Illness/Hospitalization: Yes (December 2023.) [facility] Medical History HTN (hypertension), benign Paroxysmal atrial fibrillation Bradycardia Anxiety and depression Smoker Sleep apnea HTN (hypertension) Afib Home Medications ?Medication ?Instructions ?Recorded ?Last Taken ?Type losartan 100 mg tablet 100 mg PO DAILY blood pressure 12/28/23 05/01/25 History simvastatin 20 mg tablet 20 mg PO QHS cholesterol 12/28/23 05/01/25 History calcium carbonate (Tums) 300 mg PO BID 04/12/24 Unknown History venlafaxine 150 mg 150 mg PO QHS 04/12/24 05/01/25 History capsule,extended release 24 hr apixaban 5 mg tablet (Eliquis) 5 mg PO BID #180 TABLETS 12/29/24 05/01/25 Rx latanoprost 0.005 % eye drops 1 drp ophthalmic (eye) QDAY 03/16/25 Unknown History spironolactone 25 mg tablet 25 mg PO QDAY #90 tabs 04/10/25 05/01/25 Rx vit C 250 mg-vit E 90 mg-zinc 40 1 tab PO BID 04/10/25 05/01/25 History mg-copper 1 be-tbewnw-hztzaj capsule (PreserVision AREDS-2) amiodarone 200 mg tablet 200 mg PO QDAY #30 tabs 04/13/25 05/01/25 Rx buspirone 15 mg tablet 15 mg PO BID 04/20/25 05/01/25 History cholecalciferol (vitamin D3) 50 2,000 unit PO QDAY 04/20/25 05/01/25 History mcg (2,000 unit) tablet metoprolol succinate 25 mg 25 mg PO BID #60 tabs 04/24/25 05/01/25 Rx tablet,extended release 24 hr torsemide 20 mg tablet 20 mg PO QAM #30 tabs 04/24/25 05/01/25 Rx benzonatate 200 mg capsule 200 mg PO TID PRN PRN cough 05/02/25 Unknown History cefadroxil 500 mg capsule 500 mg PO BID 05/02/25 05/01/25 History Allergy/AdvReac Type Severity Reaction Status Date / Time sulfamethoxazole (From Allergy Intermediate Rash Verified 05/02/25 10:30 Bactrim) trimethoprim (From Bactrim) Allergy Intermediate Rash Verified 05/02/25 10:30 Sulfa (Sulfonamide Allergy Mild Rash Verified 05/02/25 10:30 Antibiotics) Family History Mother Hypertension Grandfather Hypertension Grandmother Hypertension Father Cancer Surgical History History of tonsillectomy History of carpal tunnel release Social History household members: spouse Smoking Status: Former smoker how long ago did patient quit smokin12/30/2023 alcohol intake: current alcohol intake frequency: holidays/special occasions only substance use type: does not use caffeine: No ROS ROS ED Constitutional Constitutional ED: Denies chills, fever(s), sweats or weight loss Eyes Eyes: Denies blurry vision or change in vision ENT ENT ED: Denies ear pain or rhinorrhea Cardiovascular Cardiovascular: Reports orthopnea; Denies chest pain, palpitations, paroxysmal nocturnal dyspnea or racing heartbeat Respiratory/Chest Respiratory/Chest: Reports dyspnea, dyspnea on exertion and orthopnea; Denies cough or paroxysmal nocturnal dyspnea Gastrointestinal Gastrointestinal: Denies abdominal pain, melena, nausea or vomiting Genitourinary Genitourinary ED: Denies dysuria, hematuria or urinary frequency Musculoskeletal Musculoskeletal: Denies arthralgias, back pain or myalgias Integumentary Denies rash Neurologic Neurologic: Denies weakness Hematologic/Lymphatic Hematologic/Lymphatic: Reports easy bruising; Denies easy bleeding EXAM Physical Exam Const Vital Signs: 05/02/25 10:28 05/02/25 10:38 05/02/25 12:30 Temperature 97.6 F L Temperature Source Oral Pulse Rate 128 H 98 Respiratory Rate 24 H 11 L Respiratory Effort Short of Breath Respiratory Depth Normal Respiratory Pattern Tachypnea Blood Pressure 138/97 H 117/78 Blood Pressure Mean 110 91 Pulse Ox 97 98 Oxygen Delivery Method Room Air Room Air Room Air 05/02/25 14:00 Temperature Temperature Source Pulse Rate 107 H Respiratory Rate 12 Respiratory Effort Respiratory Depth Respiratory Pattern Blood Pressure 130/63 H Blood Pressure Mean 85 Pulse Ox 95 Oxygen Delivery Method Room Air Positive well nourished and well developed Constitutional Narrative: Patient appears in no distress. Vital signs are remarkable for elevated blood pressure, heart rate and respiratory rate. She is not hypoxic on room air. General Appearance ED: well developed; Negative for pallor HEENT HEENT Narrative: Head is atraumatic normocephalic. Ears normal. Nares patent. Eyes PERRL and EOMs intact bilaterally General Eye ED: Negative for pale conjunctiva or scleral icterus Neck no lymphadenopathy, supple, no meningeal signs and no JVD Resp normal respiratory effort and clear to auscultation bilaterally Cardio S1 normal heart sound, S2 normal heart sound and no murmurs Rate: tachycardic Rhythm: abnormal rhythm irregularly irregular GI non-tender, non-distended and no masses Auscultation: normoactive bowel sounds Palpation: soft Extremity Extremity Narrative: Otherwise negative. General Extremety ED: Yes edema General Extremity: edema Neuro oriented x3 and CN's II-XII intact bilaterally Bam Coma Scale: document GCS findings Psych mental status grossly normal Skin no wounds and skin turgor normal General Skin Exam: Negative for jaundice or pallor Lesions: no lesions Rashes: no rashes MDM MDM MDM Narrative Medical decision making narrative: Patient with A-fib with RVR. Will administer metoprolol for rate control. Will obtain chest x-ray BMP to assess for congestive heart failure exacerbation, clinically she is mildly overloaded. Suspect this is more right heart failure. Troponin was obtained to rule out cardiac ischemia. Since has been on for weeks of the first troponin is normal will not repeat 2-hour 4-hour. CBC to assess H&H and rule out anemia. BMP to assess renal function especially since she had her diuretic recently changed. History & Record Review Additional record(s) reviewed:: Prior inpatient record (Hospitalization December 28, 2023. She was diagnosed with CHF and A-fib RVR at that time.), Prior outpatient record (Office notes by cardiology reviewed in its entirety. This was all third April 24, 2025.) and Prior labs Lab Data Attestation: I reviewed the patient's lab results. Lab results narrative: CBC reveals slight elevation white count with slight shift. First troponin is elevated at 21. 2-hour troponin was 22 with a delta of 1. BNP is 6615. Labs: Laboratory Results - last 24 hr 05/02/25 05/02/25 11:00 13:10 WBC 13.0 H RBC 4.04 L Hgb 12.9 Hct 37.8 MCV 93.6 MCH 31.9 MCHC 34.1 RDW Std Deviation 51.2 H RDW Coeff of Angie 14.9 H Plt Count 258 MPV 9.4 Immature Gran % (Auto) 1.500 H Neut % (Auto) 89.3 H Lymph % (Auto) 5.6 L [place] % (Auto) 2.7 Eos % (Auto) 0.5 Baso % (Auto) 0.4 Absolute Neuts (auto) 11.6 H Absolute Lymphs (auto) 0.72 L Nucleated RBC % 0 Sodium 140 Potassium 3.7 Chloride 104 Carbon Dioxide 21.2 Anion Gap 15 BUN 25 H Creatinine 1.20 Estim Creat Clear Calc 29.81 L Est GFR (MDRD) Non-Af 44 L BUN/Creatinine Ratio 20.9 H Glucose 213 H Calcium 9.2 Troponin T High Sens 21 H Troponin T Hi Sens 2 Hr 22 H NT pro BNP II 6615 H Radiography Chest X-Ray - ED: 2 View and Read by ED Physician (2 view chest x-ray and pulmonary reviewed interpreted by me as remarkable for mild interstitial pulm edema/CHF. There is a small left pleural effusion. There is no infiltrate. There is no evidence of cardiomegaly. There is degenerative changes of the thoracic spine.) Diagnostic Testing: Clinical Impression(s) from Imaging Studies Chest X-Ray 05/02/25 11:04 IMPRESSION: A small left pleural effusion is seen. No pneumothorax is noted. Mild Interstitial Pulmonary Edema is noted. No focal infiltrate is seen. The cardiomediastinal silhouette is stable, without evidence of cardiomegaly. Jnkd-lz-ccalkdff degenerative changes of the visualized spine are also seen. Reading Location: [place] [address] EKG Initial EKG: Attestation: I personally reviewed and interpreted this EKG as follows: Interpretation: Atrial Fibrillation (Rate is 127. QRS is prolonged at 136 ms. QT is 380 with a QTc of 552 which is prolonged. Newton is to the left. There is an ossific changes which is probably due to the A-fib RVR.) Treatment and Re-Evaluation :: Pulse ox is 9495% with ambulation. Patient was informed of plan. She is accepting of this. She is to call the cardiology office for appointment earlier than previously scheduled. Heart rate at the time of discharge is 96. 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, Edema of left lower extremity, HTN (hypertension), benign Instructions: ED AFIB, ED CHF Left Side Prescriptions: No Action venlafaxine 150 mg capsule,extended release 24hr 150 mg PO QHS Tums 300 mg (750 mg) tablet,chewable 300 mg PO BID cholecalciferol (vitamin D3) 50 mcg (2,000 unit) tablet 2,000 unit PO QDAY latanoprost 0.005 % drops 1 drp ophthalmic (eye) QDAY torsemide 20 mg tablet 20 mg PO QAM Qty: 30 0RF metoprolol succinate 25 mg tablet extended release 24 hr 25 mg PO BID Qty: 60 3RF PreserVision AREDS-2 250-90-40-1 mg capsule 1 tab PO BID spironolactone 25 mg tablet 25 mg PO QDAY Qty: 90 3RF buspirone 15 mg tablet 15 mg PO BID simvastatin 20 mg tablet 20 mg PO QHS losartan 100 mg tablet 100 mg PO DAILY benzonatate 200 mg capsule 200 mg PO TID PRN PRN (Reason: cough) cefadroxil 500 mg capsule 500 mg PO BID Eliquis 5 mg tablet 5 mg PO BID Qty: 180 3RF amiodarone 200 mg tablet 200 mg PO QDAY Qty: 30 3RF Patient Comments: 200MG TWICE DAILY ON 01/05-01/12, THEN ON 01/13 200MG ONCE DAILY Primary Care Provider: Carl Steen Referrals: Carl Steen MD [Primary Care Provider, Family Practice] Activity Restrictions/Additional Instructions: 1. Call cardiology office in the morning to get seen within the next 3 to 5 days. 2. Increase your torsemide 20 mg to 2 in the morning for the next 3 days. 3. Continue to take metoprolol 25 mg in the morning and take 2 at night Print Language: Chadian Disposition Disposition: Home, Self Care
--- NOTE | 2025-05-02 11:04 | RAD_ITS ---
PROCEDURE: CHEST PA AND LATERAL 05/02/2025 REASON FOR EXAM: DYSPNEA, CASTANON, BILATERAL EDEMA, HX CHF TECHNIQUE: Procedure Code: RADCXR Modality: DX Procedure: CHEST PA AND LATERAL COMPARISON: PA and lateral chest of 04/10/2025. RAD/Chest PA and Lateral IMPRESSION: A small left pleural effusion is seen. No pneumothorax is noted. Mild Interstitial Pulmonary Edema is noted. No focal infiltrate is seen. The cardiomediastinal silhouette is stable, without evidence of cardiomegaly. Uqaw-kq-juwfsgti degenerative changes of the visualized spine are also seen. Reading Location: [place] [address]
[2025-05-02 11:08] LABS: Hematocrit 37.8 % (37-47); Hemoglobin 12.9 g/dL (12.0-15.0); Immature Granulocytes Count 0.190 X10^3/uL (0.0-0.0); Mean Corp Hgb Conc 34.1 g/dL (32-36); Mean Corpuscular Volume 93.6 fL (81-99); Mean Platelet Vol. 9.4 fl (6.2-12.0); NRBC Flagged by Analyzer 0 % (0-5); Platelet Count 258 K/mm3 (150-450); RBC Distribution Width CV 14.9 % (11.6-14.6); RBC Distribution Width SD 51.2 fl (35.1-43.9); Red Blood Count 4.04 M/mm3 (4.2-5.4); White Blood Count 13.0 K/mm3 (4.4-11.0)
[2025-05-02 11:30] LABS: Troponin T High Sensitivity 21 ng/L (<=14)
[2025-05-02 12:30] VITALS: BP 117/78; PULSE 98; RESP 11; O2SAT 98
[2025-05-02 12:48] LABS: Anion Gap 15 (5-15); BUN 25 mg/dL (4-19); BUN/Creat Ratio 20.9 RATIO (10-20); Calcium,Total 9.2 mg/dL (7.6-11.0); Carbon Dioxide 21.2 mmol/L (21.0-32.0); Chloride 104 mmol/L (98-108); Estimated Creatinine Clearance 29.81 ml/min (50-250); Glucose 213 mg/dL (70-99); Potassium 3.7 mmol/L (3.3-5.1); Pro- Brain NATRIURETIC PEPTIDE 6615 pg/mL (<=1800)
[2025-05-02 14:00] VITALS: BP 130/63; PULSE 107; RESP 12; O2SAT 95
[2025-05-02 14:05] LABS: Troponin T High Sens 2 HR 22 ng/L (<=14)
[2025-05-02 15:12] VITALS: O2SAT 96
[2025-05-02 15:36] VITALS: BP 130/63; PULSE 99; RESP 19; TEMP 36.8; O2SAT 97
== END 2025-05-02 15:37 | disposition home or self-care (01) ==
PROVIDERS: Emergency Provider Emergency Medicine; PCP Family Medicine; Visit Provider Emergency Medicine
DX: I48.91 Unspecified atrial fibrillation (principal); I11.0 Hypertensive heart disease with heart failure; I50.33 Acute on chronic diastolic (congestive) heart failure; Z87.891 Personal history of nicotine dependence; E78.00 Pure hypercholesterolemia, unspecified; Z79.01 Long term (current) use of anticoagulants; Z79.899 Other long term (current) drug therapy; R60.0 Localized edema
CPT/HCPCS: 71046; 80048; 83880; 84484; 85025; 93005; 96374; 96375; 99284; A4216

== ENCOUNTER 2025-05-09 07:41 | Emergency (ER) | payer MEDICARE, OTHER, SELFPAY ==
[2025-05-09 07:41] VITALS: BP 128/88; PULSE 93; RESP 17; TEMP 35.9; O2SAT 99
--- NOTE | 2025-05-09 08:15 | EX.ED.DYSGE1 ---
HPI History of Present Illness Chief Complaint: General Illness Narrative Narrative: Chief complaint and HPI: 89-year-old female with past medical history of atrial fibrillation with RVR on Eliquis, HTN, sleep apnea presents for evaluation of dyspnea and dry heaving. Patient states for the past couple weeks she has been having episodic dyspnea with activity and orthopnea. States she gets these episodes of dry heaving as well. She states she was seated recently seen in our emergency department for same symptom 05/02. I reviewed the note at that time in which she was in A-fib with RVR. She was ultimately discharged home with cardiology follow-up. Patient states she was post have a follow-up appointment with cardiology yesterday however it was canceled. States this morning shortly after waking up she had a dry heaving episode that led to dyspnea which is why she presents. She denies any fever, chills, chest pain, abdominal pain. Review of systems: See HPI Medications: As listed on the chart Allergies: As listed on the chart PFSH: Per chart Vital signs: As listed on the chart. Reviewed. Physical exam: Gen: A&O x3, NAD Head: Normocephalic, atraumatic Eyes: No sclera icterus, conjunctiva clear ENT: Moist mucous membranes Neck: Trachea midline CV: Irregularly irregular rhythm, intermittently tachycardic, no murmurs, no peripheral edema Resp: Lungs CTA BL, no w/r/c GI: Abd soft, non-distended, non-tender, no r/r/g Musc: Full ROM, no deformity Skin: Warm, dry Neuro: Alert, oriented, grossly intact, sensation intact Psych: Cooperative, appropriate mood and affect [facility] Medical History HTN (hypertension), benign Paroxysmal atrial fibrillation Bradycardia Anxiety and depression Smoker Sleep apnea HTN (hypertension) Afib Home Medications ?Medication ?Instructions ?Recorded ?Last Taken ?Type losartan 100 mg tablet 100 mg PO DAILY blood pressure 12/28/23 05/01/25 History simvastatin 20 mg tablet 20 mg PO QHS cholesterol 12/28/23 05/01/25 History calcium carbonate (Tums) 300 mg PO BID 04/12/24 Unknown History venlafaxine 150 mg 150 mg PO QHS 04/12/24 05/01/25 History capsule,extended release 24 hr apixaban 5 mg tablet (Eliquis) 5 mg PO BID #180 TABLETS 12/29/24 05/01/25 Rx latanoprost 0.005 % eye drops 1 drp ophthalmic (eye) QDAY 03/16/25 Unknown History spironolactone 25 mg tablet 25 mg PO QDAY #90 tabs 04/10/25 05/01/25 Rx vit C 250 mg-vit E 90 mg-zinc 40 1 tab PO BID 04/10/25 05/01/25 History mg-copper 1 [id number] capsule (PreserVision AREDS-2) amiodarone 200 mg tablet 200 mg PO QDAY #30 tabs 04/13/25 05/01/25 Rx buspirone 15 mg tablet 15 mg PO BID 04/20/25 05/01/25 History cholecalciferol (vitamin D3) 50 2,000 unit PO QDAY 04/20/25 05/01/25 History mcg (2,000 unit) tablet metoprolol succinate 25 mg 25 mg PO BID #60 tabs 04/24/25 05/01/25 Rx tablet,extended release 24 hr torsemide 20 mg tablet 20 mg PO QAM #30 tabs 04/24/25 05/01/25 Rx benzonatate 200 mg capsule 200 mg PO TID PRN PRN cough 05/02/25 Unknown History cefadroxil 500 mg capsule 500 mg PO BID 05/02/25 05/01/25 History Allergy/AdvReac Type Severity Reaction Status Date / Time sulfamethoxazole (From Allergy Intermediate Rash Verified 05/02/25 10:30 Bactrim) trimethoprim (From Bactrim) Allergy Intermediate Rash Verified 05/02/25 10:30 Sulfa (Sulfonamide Allergy Mild Rash Verified 05/02/25 10:30 Antibiotics) Family History Mother Hypertension Grandfather Hypertension Grandmother Hypertension Father Cancer Surgical History History of tonsillectomy History of carpal tunnel release Social History household members: spouse Smoking Status: Former smoker how long ago did patient quit smokin12/30/2023 alcohol intake: current alcohol intake frequency: holidays/special occasions only substance use type: does not use caffeine: No EXAM Physical Exam Const Vital Signs: 05/09/25 07:41 05/09/25 09:41 05/09/25 11:00 Temperature 96.6 F L Temperature Source Temporal Pulse Rate 93 95 92 Respiratory Rate 17 18 18 Blood Pressure 128/88 H 124/94 H 124/90 H Blood Pressure Mean 101 104 101 Pulse Ox 99 99 99 Oxygen Delivery Method Room Air MDM MDM MDM Narrative Medical decision making narrative: 89-year-old female with past medical history of atrial fibrillation with RVR on Eliquis, HTN, sleep apnea presents for evaluation of dyspnea and dry heaving. Patient states for the past couple weeks she has been having episodic dyspnea with activity and orthopnea. States she gets these episodes of dry heaving as well. She states she was seated recently seen in our emergency department for same symptom 05/02. I reviewed the note at that time in which she was in A-fib with RVR. She was ultimately discharged home with cardiology follow-up. Patient states she was post have a follow-up appointment with cardiology yesterday however it was canceled. States this morning shortly after waking up she had a dry heaving episode that led to dyspnea which is why she presents. On presentation, patient in no acute distress. She is in atrial fibrillation with intermittent tachycardia in the 110s. Patient states she did not take any of her medication today. Will order IV metoprolol and her p.o. morning metoprolol. Differential diagnosis includes but is not limited to atrial fibrillation with RVR, symptomatic atrial fibrillation, electrolyte abnormality, ACS, CHF exacerbation. On chart review, patient saw cardiology on 04/24. She had a CTA chest on 04/17 that was negative for PE. She had an echocardiogram on 12/28/2023 with a EF of 50%. CBC with mild leukocytosis of 13, no anemia. Platelets unremarkable. D-dimer unremarkable. BMP shows renal insufficiency with a BUN of 33 and a creatinine of 1.37. Creatinine was 1.2 on 05/02. She has a mild anion gap of 17 as well as hyperglycemia of 240. On chart review she had hyperglycemia on 05/02. Patient has no history of diabetes. Will add on VBG, UA, hemoglobin A1c to assess for new onset diabetes. Renal insufficiency may be secondary to dehydration as well as diuretic use. BNP elevated at 11,842. This is worsened from 05/02 at 6615. Patient mildly fluid overloaded. Magnesium mildly elevated at 2.5. Troponin 23 and 24 this appears to be her baseline as on 05/02 it was 21. VBG without acidosis. Hemoglobin A1c 6. Patient is prediabetic. UA negative for UTI. Patient symptoms are likely secondary to mild CHF exacerbation. On chart review, patient was originally on furosemide 40 mg daily. She was switched to torsemide 20 mg every morning however she was to double this on the th, , which she did. She feels like she is not urinating as much as she did when she was on the furosemide. On reevaluation, patient's heart rate is controlled however she still remains in A-fib. Will consult cardiology. After speaking with Dr. Ta, plan is to stop the patient's torsemide and instead start her on 60 mg of Lasix daily. Will have her repeat labs in a couple days to monitor for renal insufficiency. She was updated of all the results confirmed understand the plan. Follow-up with cardiology. Patient states she does have a cardiology appointment tomorrow. Return precautions explained. EKG: Interpreted by me/EM physician: EKG shows atrial fibrillation with RVR. Known left bundle branch block. Heart rate 106. This is similar to previous EKG earlier this month. Diagnostic: Interpreted by me/EM physician: Chest x-ray shows mild cardiomegaly and vascular congestion. No large effusion, pneumothorax, pneumonia. Radiology in agreement. This is slightly worse than previous chest x-ray. Impression: 1. Atrial fibrillation with RVR, now rate controlled 2. Mild CHF exacerbation 3. Renal insufficiency 4. Prediabetic Lab Data Labs: Laboratory Results - last 24 hr 05/09/25 05/09/25 05/09/25 07:58 09:56 10:40 WBC 13.0 H RBC 4.36 Hgb 13.7 Hct 41.3 MCV 94.7 MCH 31.4 MCHC 33.2 RDW Std Deviation 52.1 H RDW Coeff of Angie 14.9 H Plt Count 336 MPV 9.9 Immature Gran % (Auto) 0.500 Neut % (Auto) 87.4 H Lymph % (Auto) 8.3 L [place] % (Auto) 2.8 Eos % (Auto) 0.5 Baso % (Auto) 0.5 Absolute Neuts (auto) 11.3 H Absolute Lymphs (auto) 1.07 Nucleated RBC % 0 D-Dimer Quant (PE/DVT) 0.30 Sodium 139 Potassium 4.0 Chloride 100 Carbon Dioxide 21.8 Anion Gap 17 H BUN 33 H Creatinine 1.37 H Est GFR (MDRD) Non-Af 37 L BUN/Creatinine Ratio 23.8 H Glucose 240 H Hemoglobin A1c 6.0 H Calcium 9.7 Magnesium 2.5 H Troponin T High Sens 23 H D Troponin T Hi Sens 2 Hr 24 [place] [address] H Urine Color Yellow Urine Clarity Clear Urine pH 6.0 Ur Specific [place] 1.020 Urine Protein 100 H Urine Glucose (UA) Normal Urine Ketones Negative Urine Occult Blood Negative Urine Nitrite Negative Urine Bilirubin Negative Urine Urobilinogen 1 H Ur Leukocyte Esterase 25 H Urine RBC 0 SEEN Urine WBC 0-5 SEEN Ur Squamous Epith Cells 0-5 SEEN Urine Bacteria 0 SEEN Hyaline Casts 0-5 SEEN Urine Mucus 0 SEEN ABG Data ABG results: ABG 05/09/25 10:00 Specimen Type JOE Sample Site Not entered VBG pH 7.46 H VBG pO2 23 L VBG HCO3 27 H VBG Total CO2 28 VBG O2 Sat (Calc) 44 L VBG Base Excess 3 POC Mix VBG pCO2 Pt Tmp 37.5 L O2 Delivery Device Not entered Radiography Diagnostic Testing: Clinical Impression(s) from Imaging Studies Chest X-Ray 05/09/25 09:00 IMPRESSION: There is mild cardiomegaly with mild central vascular congestion. Reading Location: [facility] Discharge Plan Triage Chief Complaint: General Illness ED Provider: Isidoro Medrano Dx/Rx/DC Orders Prescriptions: No Action venlafaxine 150 mg capsule,extended release 24hr 150 mg PO QHS Tums 300 mg (750 mg) tablet,chewable 300 mg PO BID cholecalciferol (vitamin D3) 50 mcg (2,000 unit) tablet 2,000 unit PO QDAY latanoprost 0.005 % drops 1 drp ophthalmic (eye) QDAY torsemide 20 mg tablet 20 mg PO QAM Qty: 30 0RF metoprolol succinate 25 mg tablet extended release 24 hr 25 mg PO BID Qty: 60 3RF PreserVision AREDS-2 250-90-40-1 mg capsule 1 tab PO BID spironolactone 25 mg tablet 25 mg PO QDAY Qty: 90 3RF buspirone 15 mg tablet 15 mg PO BID simvastatin 20 mg tablet 20 mg PO QHS losartan 100 mg tablet 100 mg PO DAILY benzonatate 200 mg capsule 200 mg PO TID PRN PRN (Reason: cough) cefadroxil 500 mg capsule 500 mg PO BID Eliquis 5 mg tablet 5 mg PO BID Qty: 180 3RF amiodarone 200 mg tablet 200 mg PO QDAY Qty: 30 3RF Patient Comments: 200MG TWICE DAILY ON 01/05-01/12, THEN ON 01/13 200MG ONCE DAILY Primary Care Provider: Carl Steen Referrals: Carl Steen MD [Primary Care Provider, Family Practice] Print Language: Croatian
--- NOTE | 2025-05-09 08:18 | EKG12_ITS ---
Test Reason : Blood Pressure : */* mmHG Vent. Rate : 107 BPM Atrial Rate : * BPM P-R Int : * ms QRS Dur : 142 ms QT Int : 402 ms P-R-T Axes : * -36 132 degrees QTcB Int : 536 ms Atrial fibrillation with rapid ventricular response Left axis deviation Left bundle branch block Abnormal ECG Confirmed by KINGSTON SHETH, MARY ([id number]), loan expeditor SOURAV CARPENTER ([id number]) on 05/10/2025 10:00:00 AM Referred By: Confirmed By: MARY ONOFRE MD
[2025-05-09 08:26] LABS: Hematocrit 41.3 % (37-47); Hemoglobin 13.7 g/dL (12.0-15.0); Immature Granulocytes Count 0.070 X10^3/uL (0.0-0.0); Mean Corp Hgb Conc 33.2 g/dL (32-36); Mean Corpuscular Volume 94.7 fL (81-99); Mean Platelet Vol. 9.9 fl (6.2-12.0); NRBC Flagged by Analyzer 0 % (0-5); Platelet Count 336 K/mm3 (150-450); RBC Distribution Width CV 14.9 % (11.6-14.6); RBC Distribution Width SD 52.1 fl (35.1-43.9); Red Blood Count 4.36 M/mm3 (4.2-5.4); White Blood Count 13.0 K/mm3 (4.4-11.0)
[2025-05-09] MEDS: Metoprolol(XL)Succ 25 MG Tablet PO (08:34)
[2025-05-09 08:38] LABS: D-Dimer Quantitative (DVT/PE) 0.30 FEU/ug/m (0.27-0.49)
--- NOTE | 2025-05-09 09:00 | RAD_ITS ---
PROCEDURE: CHEST PA AND LATERAL 05/09/2025 REASON FOR EXAM: SHORTNESS OF BREATH TECHNIQUE: Procedure Code: RADCXR Modality: DX Procedure: CHEST PA AND LATERAL COMPARISON: May 02, 2025 FINDINGS: There is mild cardiomegaly with mild central vascular congestion. There is no pneumothorax or effusion. There is no acute bony abnormality. Aortic calcifications are visible. RAD/Chest PA and Lateral IMPRESSION: There is mild cardiomegaly with mild central vascular congestion. Reading Location: [facility]
[2025-05-09 09:10] LABS: Anion Gap 17 (5-15); BUN 33 mg/dL (4-19); BUN/Creat Ratio 23.8 RATIO (10-20); Calcium,Total 9.7 mg/dL (7.6-11.0); Carbon Dioxide 21.8 mmol/L (21.0-32.0); Chloride 100 mmol/L (98-108); Glucose 240 mg/dL (70-99); Potassium 4.0 mmol/L (3.3-5.1); Pro- Brain NATRIURETIC PEPTIDE 11842 pg/mL (<=1800)
[2025-05-09 09:11] LABS: Troponin T High Sensitivity 23 ng/L (<=14)
[2025-05-09 09:26] LABS: Magnesium 2.5 mg/dL (1.5-2.2)
[2025-05-09 09:41] VITALS: BP 124/94; PULSE 95; RESP 18; O2SAT 99
[2025-05-09 10:00] LABS: Mucous, Urine 0 SEEN /hpf (<or=2+); Red Blood Cells-Urine 0 SEEN /hpf (0-5)
[2025-05-09 10:04] LABS: SITE Not entered; VBG BASE EXCESS 3 mmol/L (-1.0-3.5); VBG PO2 23 mmHg (25-40); VBG SO2 44 % (50-70); VBG TCO2 28 mmol/L (23-33)
[2025-05-09 10:05] LABS: Color, Urine Yellow (Yellow); Glucose, Dipstick Normal (Normal); Ketone-Dipstick Negative (Negative); Leukocyte Esterase-Dipstick 25 /ul (Negative); Nitrite-Dipstick Negative (Negative); Occult Blood-Urine Negative /ul (Negative); Protein-Dipstick 100 mg/dl (Negative); Specific Gravity, Urine 1.020 (1.002-1.030); Urine Bilirubin Dipstick Negative (Negative)
[2025-05-09 10:16] LABS: Squamous Epithelial Cells - UA 0-5 SEEN /hpf (5-10)
[2025-05-09 11:00] VITALS: BP 124/90; PULSE 92; RESP 18; O2SAT 99
[2025-05-09 11:16] LABS: Troponin T High Sens 2 HR 24 ng/L (<=14)
[2025-05-09 13:19] VITALS: BP 135/88; PULSE 82; RESP 18; TEMP 36.6; O2SAT 99
== END 2025-05-09 13:20 | disposition home or self-care (01) ==
PROVIDERS: Emergency Provider Surgery; PCP Family Medicine; Visit Provider Surgery
DX: I11.0 Hypertensive heart disease with heart failure (principal); I50.9 Heart failure, unspecified; I48.0 Paroxysmal atrial fibrillation; R73.03 Prediabetes; Z87.891 Personal history of nicotine dependence; N28.9 Disorder of kidney and ureter, unspecified; Z79.01 Long term (current) use of anticoagulants; Z79.899 Other long term (current) drug therapy
CPT/HCPCS: 71046; 80048; 81001; 82803; 83036; 83735; 83880; 84484; 85025; 85379; 93005; 96374; 99283; A4216

== ENCOUNTER → 2025-05-18 | Outpatient (CLI) | payer MEDICARE, OTHER, SELFPAY ==
--- NOTE | 2025-05-18 13:43 | ECHOD_ITS ---
Reason For Study Reason For Study: SHORTNESS OF BREATH Procedure This was a 2D Doppler, Color Flow transthoracic echocardiogram. Exam performed in department. Left Ventricle Normal left ventricle. The left ventricular ejection fraction is 40 %. There is mild global hypokinesis of the left ventricle. Right Ventricle Normal RV size. Normal systolic function. Atria The left atrium is mildly enlarged. The right atrium is mildly enlarged. Mitral Valve Normal mitral valve. Mild (1+) eccentric mitral valve insufficiency. Tricuspid Valve Normal tricuspid valve. Mild (1+) tricuspid valve insufficiency. Pulmonary artery systolic pressure is 38 mmHg. Aortic Valve Trisinus/trileaflet aortic valve. Pulmonic Valve Normal pulmonic valve. Great Vessels Normal aortic root. The pulmonary artery is normal size. Inferior vena cava collapse with respiration. Pericardium/Pleural No pericardial effusion. MMode/2D Measurements & Calculations LVIDd: 5.5 cm IVSd: 1.0 cm Ao root diam: 3.5 cm LVIDs: 4.2 cm LVPWd: 1.0 cm FS: 22.9 % LAV(MOD-bp): 70.0 ml LVAd ap4: 27.9 cm2 LVAd ap2: 31.4 cm2 LAV(MOD-bp) Indexed: 40.4 ml/m2 LVLd ap4: 7.5 cm LVLd ap2: 8.4 cm LAV(MOD-sp2): 66.1 ml EDV(MOD-sp4): 85.2 ml EDV(MOD-sp2): 99.8 ml LAV(MOD-sp4): 69.5 ml EDV(sp4-el): 88.5 ml EDV(sp2-el): 100.3 ml LVAs ap4: 20.5 cm2 LVAs ap2: 22.8 cm2 LVLs ap4: 6.5 cm LVLs ap2: 7.2 cm ESV(MOD-sp4): 53.8 ml ESV(MOD-sp2): 61.7 ml ESV(sp4-el): 55.0 ml ESV(sp2-el): 61.1 ml EF(MOD-sp4): 36.9 % EF(MOD-sp2): 38.2 % EF(sp4-el): 37.9 % SV(MOD-sp4): 31.4 ml SV(MOD-sp2): 38.1 ml SV(sp4-el): 33.5 ml SI(MOD-sp4): 18.2 ml/m2 SI(MOD-sp2): 22.0 ml/m2 LA A4 area: 22.0 cm2 LA dimension(2D): 3.9 cm RA A4 area: 19.9 cm2 TAPSE: 1.2 cm Doppler Measurements & Calculations MV E max timothy: 100.9 cm/sec Lat Peak E' Timothy: 3.4 cm/sec Med Peak E' Timothy: 4.3 cm/sec E/E' lat: 30.1 E/E' med: 23.7 Ao V2 max: 102.7 cm/sec LV V1 max: 81.0 cm/sec MR max timothy: 385.7 cm/sec Ao max P.3 mmHg LV V1 max P.7 mmHg MR max P.5 mmHg Ao V2 mean: 74.3 cm/sec LV V1 mean P.5 mmHg MR mean timothy: 317.1 cm/sec Ao mean P.5 mmHg LV V1 mean: 56.8 cm/sec MR mean P.0 mmHg Ao V2 VTI: 16.0 cm LV V1 VTI: 10.9 cm MR VTI: 118.2 cm AV (velocity ratio): 0.68 PA V2 max: 68.6 cm/sec TR max timothy: 283.4 cm/sec TR max P.4 mmHg ECHO/Echo Complete Interpretation Summary Normal left ventricle. There is mild global hypokinesis of the left ventricle. The left ventricular ejection fraction is 40 %. The left atrium is mildly enlarged. The right atrium is mildly enlarged. Ordering Physician: Dontrell Hernandez Referring Physician: Carl Steen Performed By: Riya Youssef, UZAIR, RVT
== END | disposition home or self-care (01) ==
LOC: CVS 13:39
PROVIDERS: PCP Family Medicine; Referring Provider Student in an Organized Health Care Education/Training Program; Visit Provider Student in an Organized Health Care Education/Training Program
DX: R06.02 Shortness of breath (principal); I48.91 Unspecified atrial fibrillation; R30.9 Painful micturition, unspecified
CPT/HCPCS: 93306

== ENCOUNTER → 2025-05-21 | Outpatient (CLI) | payer MEDICARE, OTHER, SELFPAY ==
[2025-05-21 09:00] LABS: Anion Gap 14 (5-15); BUN 32 mg/dL (4-19); BUN/Creat Ratio 25.5 RATIO (10-20); Calcium,Total 9.2 mg/dL (7.6-11.0); Carbon Dioxide 21.6 mmol/L (21.0-32.0); Chloride 103 mmol/L (98-108); Glucose 224 mg/dL (70-99); Potassium 4.1 mmol/L (3.3-5.1); Pro- Brain NATRIURETIC PEPTIDE 12048 pg/mL (<=1800)
== END | disposition home or self-care (01) ==
LOC: LAB 07:42
PROVIDERS: Nurse Practitioner Gerontology; PCP Family Medicine; Referring Provider Nurse Practitioner Family; Visit Provider Nurse Practitioner Family
DX: R06.02 Shortness of breath (principal)
CPT/HCPCS: 36415; 80048; 83880

== ENCOUNTER → 2025-05-22 | Outpatient (CLI) | payer MEDICARE, OTHER, SELFPAY | END | disposition home or self-care (01) | LOC: SL 19:51 | PROVIDERS: PCP Family Medicine; Referring Provider Student in an Organized Health Care Education/Training Program; Visit Provider Student in an Organized Health Care Education/Training Program | DX: G47.10 Hypersomnia, unspecified (principal); G47.31 Primary central sleep apnea | CPT/HCPCS: 95811 ==

== ENCOUNTER 2025-05-28 12:11 | Emergency (ER) | payer MEDICARE, OTHER, SELFPAY ==
[2025-05-28] VITALS (7 sets, daily range): BP systolic 106–129; BP diastolic 75–99; PULSE 73–112; RESP 14–19; TEMP 36.5; O2SAT 97–99; BMI 28.3
--- NOTE | 2025-05-28 12:30 | EKG12_ITS ---
Test Reason : SOB
--- NOTE | 2025-05-28 12:43 | RAD_ITS ---
PROCEDURE: RAD/Chest PA and Lateral
[2025-05-28 13:03] LABS: Hematocrit 41.4 % (37-47); Hemoglobin 13.4 g/dL (12.0-15.0); Immature Granulocytes Count 0.080 X10^3/uL (0.0-0.0); Mean Corp Hgb Conc 32.4 g/dL (32-36); Mean Corpuscular Volume 95.8 fL (81-99); Mean Platelet Vol. 9.4 fl (6.2-12.0); NRBC Flagged by Analyzer 0 % (0-5); Platelet Count 272 K/mm3 (150-450); RBC Distribution Width CV 15.2 % (11.6-14.6); RBC Distribution Width SD 53.2 fl (35.1-43.9); Red Blood Count 4.32 M/mm3 (4.2-5.4); White Blood Count 10.9 K/mm3 (4.4-11.0)
[2025-05-28 13:49] LABS: Pro- Brain NATRIURETIC PEPTIDE 12933 pg/mL (<=1800); Troponin T High Sensitivity 24 ng/L (<=14)
[2025-05-28 13:53] LABS: Anion Gap 14 (5-15); BUN 27 mg/dL (4-19); BUN/Creat Ratio 20.5 RATIO (10-20); Calcium,Total 9.7 mg/dL (7.6-11.0); Carbon Dioxide 22.1 mmol/L (21.0-32.0); Chloride 103 mmol/L (98-108); Estimated Creatinine Clearance 27.69 ml/min (50-250); Glucose 129 mg/dL (70-99); Potassium 4.1 mmol/L (3.3-5.1)
--- NOTE | 2025-05-28 15:18 | ED.VIS.DYS ---
HPI History of Present Illness Chief Complaint: Shortness of Breath Narrative Narrative: Patient is a 89-year-old female presenting to the emergency department for dyspnea and Holter monitor placement. Patient has a past medical history of A-fib with RVR on Eliquis, sleep apnea, hypertension, HFrEF, smoking. Patient is a very poor historian. Reportedly she was supposed to have a Holter monitor placed outpatient today and the provider that was going to place it told her that if you were my family member I would tell you to go to the ED. Therefore patient came here for evaluation. Patient states that for the past few weeks she has had increased lower extremity edema and has felt more short of breath with activity. She reports that last night her heart rate went into the 140s and was notified by her Apple Watch. She does have a history of A-fib. She reports that she is compliant with her medications including her Eliquis and Lasix. She just saw her transitional nurse on 05/21 and they adjusted her Lasix medication. [facility] Medical History HTN (hypertension), benign Paroxysmal atrial fibrillation Bradycardia Anxiety and depression Smoker Sleep apnea HTN (hypertension) Afib Home Medications ?Medication ?Instructions ?Recorded ?Last Taken ?Type losartan 100 mg tablet 100 mg PO DAILY blood pressure 12/28/23 05/01/25 History simvastatin 20 mg tablet 20 mg PO QHS cholesterol 12/28/23 05/01/25 History calcium carbonate (Tums) 300 mg PO BID 04/12/24 Unknown History venlafaxine 150 mg 150 mg PO QHS 04/12/24 05/01/25 History capsule,extended release 24 hr apixaban 5 mg tablet (Eliquis) 5 mg PO BID #180 TABLETS 12/29/24 05/01/25 Rx latanoprost 0.005 % eye drops 1 drp ophthalmic (eye) QDAY 03/16/25 Unknown History spironolactone 25 mg tablet 25 mg PO QDAY #90 tabs 04/10/25 05/01/25 Rx vit C 250 mg-vit E 90 mg-zinc 40 1 tab PO BID 04/10/25 05/01/25 History mg-copper 1 [id number] capsule (PreserVision AREDS-2) amiodarone 200 mg tablet 200 mg PO QDAY #30 tabs 04/13/25 05/01/25 Rx cholecalciferol (vitamin D3) 50 2,000 unit PO QDAY 04/20/25 05/01/25 History mcg (2,000 unit) tablet metoprolol succinate 25 mg 25 mg PO BID #60 tabs 04/24/25 05/01/25 Rx tablet,extended release 24 hr furosemide 20 mg tablet (Lasix) 60 mg PO BREAKFAST 05/21/25 Unknown History buspirone 7.5 mg tablet 7.5 mg PO BID 05/28/25 Unknown History Allergy/AdvReac Type Severity Reaction Status Date / Time sulfamethoxazole (From Allergy Intermediate Rash Verified 05/28/25 12:12 Bactrim) trimethoprim (From Bactrim) Allergy Intermediate Rash Verified 05/28/25 12:12 Sulfa (Sulfonamide Allergy Mild Rash Verified 05/28/25 12:12 Antibiotics) Family History Mother Hypertension Grandfather Hypertension Grandmother Hypertension Father Cancer Surgical History History of tonsillectomy History of carpal tunnel release Social History household members: spouse Smoking Status: Former smoker how long ago did patient quit smokin12/30/2023 alcohol intake: current alcohol intake frequency: holidays/special occasions only substance use type: does not use caffeine: No ROS ROS ED ROS Narrative See HPI EXAM Physical Exam Narrative Exam Narrative: Vital signs: Reviewed General: Alert and oriented. No acute distress HEENT: Head is normocephalic and atraumatic, sinuses nontender, pupils equal round and reactive. Nares are patent. Oropharynx and throat exams normal. Neck: Supple without lymphadenopathy nontender Cardiovascular: Regular rate and rhythm, no murmurs. No rubs or gallops. Normal S1 and S2 Respiratory: Clear to auscultation bilaterally. No wheezes, rales, rhonchi Abdominal: Soft and nontender. Normal bowel sounds. No guarding or rebound. Nonsurgical abdomen Extremities: Scant bilateral symmetric lower extremity edema. No tenderness. No bruising. Normal range of motion. Normal sensation. Skin: No rash or redness. Neurological: Cranial nerves II through XII are grossly intact. Normal strength and sensation. Normal cerebellar function The rest of the physical exam is unremarkable Const Vital Signs: 05/28/25 12:12 05/28/25 13:05 05/28/25 13:11 Temperature 97.7 F L Temperature Source Oral Pulse Rate 73 73 Respiratory Rate 18 14 Respiratory Effort Short of Breath Respiratory Depth Normal Respiratory Pattern Normal Blood Pressure 112/75 110/76 Blood Pressure Mean 87 87 Pulse Ox 97 97 Oxygen Delivery Method Room Air Room Air 05/28/25 14:00 05/28/25 15:00 05/28/25 15:25 Temperature 97.7 F L Temperature Source Pulse Rate 99 112 H 100 Respiratory Rate 19 H 19 H Respiratory Effort Respiratory Depth Respiratory Pattern Blood Pressure 106/80 129/99 H 129/99 H Blood Pressure Mean 88 109 109 Pulse Ox 98 98 98 Oxygen Delivery Method Room Air Room Air MDM MDM MDM Narrative Medical decision making narrative: Patient is a 89-year-old female presenting to the emergency department for a Holter monitor and continued dyspnea and lower extremity swelling over the past week. Patient was seen and examined. Vitals are stable. Patient resting in bed comfortably in no acute distress. Differential includes but is not limited to: CHF exacerbation, pneumonia, ACS CBC with no leukocytosis and a normal hemoglobin. BMP with slight ARCENIO with BUN of 27 and creatinine of 1.29 fairly consistent with her prior [place]. [place] [address], slightly higher than her visit on 05/21. Troponins are consistent with her prior visits in the mid 20s at 24 and 27 with no significant delta change. Chest x-ray reviewed, no vascular congestion noted. There is cardiac enlargement. Radiology read in agreement. Radiology noted some mild subglottic narrowing, correlate with upper airway symptoms which she does not have on clinical exam. Patient was given a 40 mg IV dose of Lasix here. She has continued to saturate 97 to 98% on room air. She ambulated and had no difficulty saturating in the high 90s on room air. She had no significant dyspnea. Holter monitor was placed here. She was updated on the findings consistent with a CHF exacerbation that does not require inpatient management given she does not require nasal cannula and appears very comfortable in no distress. While she is here she intermittently goes in and out of A-fib that is rate controlled. She has a history of paroxysmal A-fib. She was encouraged to call her transitional nurse tomorrow to discuss any medication changes needed. Instructed to take her medications as prescribed until then. Patient discharged from the Emergency Department. I do not feel that the patient's evaluation reveals any acute reason for admission at this time. I instructed them to either follow-up with their primary care physician or promptly return to the Emergency Department for reevaluation should symptoms worsen or new symptoms develop. I explained what symptoms would indicate the need to return to the emergency department. Shared decision making was used. The patient voiced understanding of the treatment plan and is agreeable with it. Clinical impression paroxysmal A-fib CHF exacerbation History & Record Review Discussion w/independent historian: Patient Additional record(s) reviewed:: Prior outpatient record, Prior ED visit and Prior labs Lab Data Attestation: I reviewed the patient's lab results. Labs: Laboratory Results - last 24 hr 05/28/25 05/28/25 12:55 15:10 WBC 10.9 RBC 4.32 Hgb 13.4 Hct 41.4 MCV 95.8 MCH 31.0 MCHC 32.4 RDW Std Deviation 53.2 H RDW Coeff of Angie 15.2 H Plt Count 272 MPV 9.4 Immature Gran % (Auto) 0.700 Neut % (Auto) 79.4 H Lymph % (Auto) 12.6 L Dent % (Auto) 5.7 Eos % (Auto) 1.0 Baso % (Auto) 0.6 Absolute Neuts (auto) 8.7 H Absolute Lymphs (auto) 1.38 Nucleated RBC % 0 Sodium 140 Potassium 4.1 Chloride 103 Carbon Dioxide 22.1 Anion Gap 14 BUN 27 H Creatinine 1.29 H Estim Creat Clear Calc 27.69 L Est GFR (MDRD) Non-Af 40 L BUN/Creatinine Ratio 20.5 H Glucose 129 H Calcium 9.7 Troponin T High Sens 24 H Troponin T Hi Sens 2 Hr 27 [place] [address] H Radiography Chest X-Ray - ED: 2 View, Read by ED Physician, Unchanged and Cardiomegaly Diagnostic Testing: Clinical Impression(s) from Imaging Studies Chest X-Ray 05/28/25 12:43 IMPRESSION: 1. Cardiac enlargement. 2. Mild subglottic narrowing. Correlate with upper airway symptoms. Consider tracheobronchitis. Reading Location: [facility] Discharge Plan Triage Chief Complaint: Shortness of Breath ED Provider: Letty Kan Dx/Rx/DC Orders Clinical Impression: CHF exacerbation, Paroxysmal A-fib Instructions: Coping with Heart Failure, Heart Failure Dc, ED AFIB Prescriptions: No Action venlafaxine 150 mg capsule,extended release 24hr 150 mg PO QHS Tums 300 mg (750 mg) tablet,chewable 300 mg PO BID cholecalciferol (vitamin D3) 50 mcg (2,000 unit) tablet 2,000 unit PO QDAY latanoprost 0.005 % drops 1 drp ophthalmic (eye) QDAY metoprolol succinate 25 mg tablet extended release 24 hr 25 mg PO BID Qty: 60 3RF PreserVision AREDS-2 250-90-40-1 mg capsule 1 tab PO BID spironolactone 25 mg tablet 25 mg PO QDAY Qty: 90 3RF furosemide [Lasix] 20 mg tablet 60 mg PO BREAKFAST simvastatin 20 mg tablet 20 mg PO QHS losartan 100 mg tablet 100 mg PO DAILY buspirone 7.5 mg tablet 7.5 mg PO BID Eliquis 5 mg tablet 5 mg PO BID Qty: 180 3RF amiodarone 200 mg tablet 200 mg PO QDAY Qty: 30 3RF Patient Comments: 200MG TWICE DAILY ON 01/05-01/12, THEN ON 01/13 200MG ONCE DAILY Primary Care Provider: Carl Steen Referrals: Yuri Ta MD [Med Staff - Active Staff, Cardiology] - As soon as possible Carl Steen MD [Primary Care Provider, Family Practice] Activity Restrictions/Additional Instructions: Call your transitional nurse tomorrow for follow-up. Take your medications as prescribed. Your evaluation in the Emergency Department did not reveal any acute reason for admission. However, I want to emphasize that you may be early in the course of a disease process or illness even if it is not present. For this reason you should follow-up within 24 hours for reevaluation with either your primary care physician or if necessary back here in the Emergency Department. You should return to the Emergency Department immediately if your symptoms worsen or new symptoms develop. Print Language: Namibian Disposition Disposition: Home, Self Care Discharge Date/Time: 05/28/25 15:55
[2025-05-28 15:52] LABS: Troponin T High Sens 2 HR 27 ng/L (<=14)
== END 2025-05-28 15:55 | disposition home or self-care (01) ==
PROVIDERS: Emergency Provider Student in an Organized Health Care Education/Training Program; PCP Family Medicine; Visit Provider Student in an Organized Health Care Education/Training Program
DX: I11.0 Hypertensive heart disease with heart failure (principal); I50.9 Heart failure, unspecified; I48.0 Paroxysmal atrial fibrillation; Z87.891 Personal history of nicotine dependence; Z79.01 Long term (current) use of anticoagulants; Z79.899 Other long term (current) drug therapy
CPT/HCPCS: 71046; 80048; 83880; 84484; 85025; 93005; 96374; 99285; A4216; J1938

== ENCOUNTER → 2025-05-28 | Outpatient (CLI) | payer MEDICARE, OTHER, SELFPAY | END | disposition home or self-care (01) | LOC: PSN 11:52 | PROVIDERS: PCP Family Medicine; Referring Provider Internal Medicine Cardiovascular Disease; Visit Provider Internal Medicine Cardiovascular Disease | DX: I48.0 Paroxysmal atrial fibrillation (principal) | CPT/HCPCS: 93225; 93226 ==

== ENCOUNTER → 2025-06-05 | Outpatient (CLI) | payer MEDICARE, OTHER, SELFPAY | END | disposition home or self-care (01) | LOC: SL 11:46 | PROVIDERS: PCP Family Medicine; Visit Provider Nurse Practitioner Family | DX: Z00.00 Encounter for general adult medical examination without abnormal findings (principal) ==

== ENCOUNTER → 2025-06-06 | Outpatient (CLI) | payer MEDICARE, OTHER, SELFPAY ==
[2025-06-06 11:13] LABS: Prothrombin Time (Protime)PT. 21.2 SECONDS (11.7-14.9)
[2025-06-06 11:27] LABS: AST(SGOT) 47 U/L (<=31); Alanine Aminotransfer ALT/SGPT 65 U/L (<=34); Albumin, Serum 3.9 g/dL (3.4-4.8); Alkaline Phosphatase 146 U/L (35-104); Anion Gap 13 (5-15); BUN 35 mg/dL (4-19); BUN/Creat Ratio 23.4 RATIO (10-20); Calcium,Total 9.3 mg/dL (7.6-11.0); Carbon Dioxide 24.6 mmol/L (21.0-32.0); Chloride 103 mmol/L (98-108); Globulin 2.2 g/dL (2.2-4.2); Glucose 202 mg/dL (70-99); Potassium 4.2 mmol/L (3.3-5.1); Pro- Brain NATRIURETIC PEPTIDE 12207 pg/mL (<=1800)
== END | disposition home or self-care (01) ==
LOC: LAB 10:16
PROVIDERS: Student in an Organized Health Care Education/Training Program; PCP Family Medicine; Referring Provider Nurse Practitioner Gerontology; Visit Provider Nurse Practitioner Gerontology
DX: R06.02 Shortness of breath (principal); I50.20 Unspecified systolic (congestive) heart failure; I48.0 Paroxysmal atrial fibrillation; Z79.899 Other long term (current) drug therapy
CPT/HCPCS: 36415; 80053; 83880; 85610

== ENCOUNTER → 2025-06-11 | Outpatient (CLI) | payer MEDICARE, OTHER, SELFPAY ==
--- OUTSIDE RECORDS SUMMARY | 2025-06-11 06:52 | XMS RPT_ITS | CCD ---
Author Organization [facility] Care Team Providers Care Project Manager Interior Design Name Role Phone Carl Rendon MD Primary Care Provider Carl Rendon MD Primary Care Provider Camille RN, Eula Unavailable Janice SINGLE POINTED OPERATOR.DIRECTOR ASSET, Noreen Unavailable Chapito SCHWARTZ, Dionna Unavailable Carl Rendon MD Primary Care Provider Janice SINGLE POINTED OPERATOR.DIRECTOR ASSET, Noreen Unavailable Chapito SCHWARTZ, Dionna Unavailable Dr. Carl Rendon MD Primary Care Provider Dr. Carl Rendon MD Referring Provider Dr. Yuri Ta MD Attending Provider Dr. Yuri Ta MD Referring Provider Dontrell Martinez Attending Provider Dr. Carl Rendon MD Primary Care Physician Dr. Yuri Ta MD Attending Physician Dontrell Martinez Attending Physician Dontrell Martinez Referring Provider Katrin Arevalo Attending Physician Unavailable Mat SHETH, Dr. Constantino Emergency Department Physician Mat SHETH, Dr. Constantino Attending Physician Marcela RDEDY, Dr. Chaudhry Attending Physician Marcela REDDY, Dr[facility] Azeem CHIRINOSCElida Attending Physician Seble AIX ADMINISTRATOR-John Gaston Attending Physician Seble AIX ADMINISTRATORJohn Avendano Referring Provider [phone] JULIETA, CARL A Referring Unavailable JULIETA, ACRL A Primary Care Unavailable DIONNA URIARTE Attending Unavailable JULIETA, CARL A Primary Care Unavailable JULIETA, CARL A Attending Unavailable JULIETA, CARL A Primary Care Unavailable JULIETA, CARL A Attending Unavailable JULIETA, CARL A Primary Care Unavailable JULIETA, CARL A Attending Unavailable JULIETA, CARL A Primary Care Unavailable JULIETA, CARL A Referring Unavailable JULIETA, CARL A Primary Care Unavailable DIONNA URIARTE Attending Unavailable JULIETA, CARL A Primary Care Unavailable JULIETA, CARL A Primary Care Unavailable OMARI NAVAS Attending Unavailable JULIETA, CARL A Referring Unavailable JULIETA, CARL A Primary Care Unavailable JULIETA, CARL A Attending Unavailable JULIETA, CARL A Primary Care Unavailable DIONNA URIARTE Attending Unavailable JULIETA, CARL A Primary Care Unavailable DIONNA URIARTE Referring Unavailable JULIETA, CARL A Primary Care Unavailable JULIETA, CARL A Referring Unavailable JULIETA, CARL A Primary Care Unavailable JULIETA, CARL A Primary Care Unavailable OMARI NAVAS Attending Unavailable JULIETA, CARL A Primary Care Unavailable JULIETA, CARL A Referring Unavailable JULIETA, CARL A Primary Care Unavailable Dontrell Hernandez Attending Unavailable Julieta, Carl Primary Care Unavailable Julieta, Carl Referring Unavailable Julieta, Carl Primary Care Unavailable Katrin Arevalo Attending Unavailable Julieta, Carl Referring Unavailable Elida Gann Attending Unavailable Julieta, Carl Primary Care Unavailable Julieta, Carl Primary Care Unavailable Julieta, Carl Referring Unavailable Liza Hernandezr Attending Unavailable Isidoro Medrano Attending Unavailabl e Julieta, Carl Primary Care Unavailable Julieta, Carl Primary Care Unavailable Keyon, Yuri Attending Unavailable [place], [place] Referring Unavailable Demiter, Dontrell Attending Unavailable Demiter, Dontrell Referring Unavailable Julieta, Carl Primary Care Unavailable Julieta, Carl Primary Care Unavailable Keyon, [place] Attending Unavailable Keyon, [place] Referring Unavailable Julieta, Carl Primary Care Unavailable [place], [place] Attending Unavailable Julieta, Carl Primary Care Unavailable Julieta, Carl Referring Unavailable Demiter, Dontrell Attending Unavailable Demiter, Dontrell Referring Unavailable Julieta, Carl Primary Care Unavailable Demiter, Dontrell Attending Unavailable Demiter, Dontrell Attending Unavailable Demiter, Dontrell Referring Unavailable Julieta, Carl Primary Care Unavailable Roof AIX ADMINISTRATOR, H Referring Unavailable Roof AIX ADMINISTRATOR, H Attending Unavailable Julieta, Carl Primary Care Unavailable Demiter, Dontrell Attending Unavailable Demiter, Dontrell Referring Unavailable Julieta, Carl Primary Care Unavailable Julieta, Carl Primary Care Unavailable Letty Kan Attending Unavailable Demiter, Dontrell Referring Unavailable Julieta, Carl Primary Care Unavailable Demiter, Dontrell Attending Unavailable Julieta, Carl Primary Care Unavailable Elida Gann Referring Unavailable Elida Gann Attending Unavailable Demiter, Dontrell Referring Unavailable Julieta, Carl Primary Care Unavailable Demiter, Dontrell Attending Unavailable Genesis Quinn Attending Unavailable Julieta, Carl Primary Care Unavailable Julieta, Carl Primary Care Unavailable [place], [place] Attending Unavailable Keyon, Yuri Referring Unavailable Julieta, Acrl Primary Care Unavailable Rivero, Dougie Attending Unavailable Julieta, Carl Primary Care Unavailable Julieta, Carl Referring Unavailable Elida Gann Attending Unavailable Genesis Quinn Attending Unavailable Julieta, Carl Primary Care Unavailable Julieta, Carl Referring Unavailable Julieta, Carl Primary Care Unavailable Julieta, Carl Referring Unavailable Demiter, Dontrell Attending Unavailable Julieta, Carl Primary Care Unavailable Julieta, Carl Referring Unavailable Keyon, Yuri Attending Unavailable Allergies Allergy Classification Reported Allergen(s) Allergy Type Date of Onset Reaction(s) Facility Sulfamethoxazole / Trimethoprim (6 sources) Sulfamethoxazole / Trimethoprim Drug Allergy 01-04-20 [facility] Work Phone: (20 sources) Sulfamethoxazole / Trimethoprim; Translations: [SULFAMETHOXAZOLE-TR IMETHOPRIM] Drug Allergy 01-04-20 [facility] Work Phone: (10 sources) Sulfonamides (Antibiotic) Allergy to substance 02-21-20 [facility] (6 sources) Sulfamethoxazole Drug Allergy 04-24-20 [facility] (6 sources) Trimethoprim Drug Allergy 04-24-20 Rash [facility] (1 source) Sulfamethoxazole Drug Allergy 06-01-20 [facility] Repository (1 source) Sulfonamides (Antibiotic) Drug allergy (disorder) 06-01-20 [facility] Rep[facility] (1 source) Trimethoprim Drug Allergy 06-01-20 [facility] Repository Medications Current Medications Medication Drug Class(es) Dates Sig (Normalized) Sig (Original) amiodarone hydrochloride 200 mg oral tablet (20 sources) Antiarrhythmic Start: 04-13-2025 take 1 tablet by mouth once daily Start: 03-27-2025 End: 04-13-2025 take 1 tablet by mouth once daily Amiodarone 100 mg tablet Discontinued 100 mg PO daily 90 March 27, 2025 4:14pm April 13, 2025 3:33pm Start: 01-06-2024 End: 03-30-2025 take 1 tablet by mouth once daily Amiodarone 200 mg tablet Discontinued 200 mg PO daily 90 October 04, 2024 12:59pm March 27, 2025 4:14pm Start: 01-06-2024 End: 02-08-2024 Amiodarone 200 mg tablet Discontinued 200 mg PO .COMPLEX 35 January 06, 2024 12:00am February 08, 2024 12:35pm 200 mg orally twice day X 1 week then once a day; busPIRone hydrochloride 15 m g oral tablet (20 sources) Start: 04-20-2025 take 1 tablet by jackelyn twice daily Start: 04-20-2025 take 1 tablet by jackelyn twice daily Start: 02-01-2024 End: 04-20-2025 take 1 tablet by mouth twice daily Buspirone 7.5 mg tablet Discontinued 7.5 mg PO TWICE A DAY April 12, 2024 12:00am April 20, 2025 11:01am calcium carbonate 750 mg chewable tablet (20 sources) Start: 04-12-2024 take 1 tablet by jackelyn th twice daily cholecalciferol 0.05 mg oral tablet (20 sources) Vitamin D Start: 04-20-2025 take 1 tablet by jackelyn once daily Start: 04-20-2025 take 1 tablet by jackelyn once daily Start: 02-20-2025 End: 04-20-2025 take 1 tablet by mouth once daily Cholecalciferol (Vitamin D3) 50 mcg (2,000 unit) tablet Discontinued 25 ug PO daily February 20, 2025 10:42am April 20, 2025 11:07am Start: 04-12-2024 End: 02-20-2025 take 1 tablet by mouth once daily Cholecalciferol (Vitamin D3) 50 mcg (2,000 unit) tablet Discontinued 50 ug PO daily April 12, 2024 12:00am February 20, 2025 10:44am CHOLECALCIFEROL, VITAMIN D3, ORAL (20 sources) CHOLECALCIFEROL, VITAMIN D3, ORAL Take 2,000 Int'l Units/day by mouth once daily. Active CHOLECALCIFEROL, VITAMIN D3, ORAL Take 2,000 Int'l Units/day by mouth once daily. 0 Active doxycycline monohydrate 100 mg oral capsule (1 source) Tetracycline-class Drug Start: 07-06-2022 End: 07-11-2022 take 1 capsule by mouth twice daily doxycycline monohydrate (MONODOX) 100 mg capsule Indications: Acute cough Take 1 capsule by mouth twice daily for 5 days. 10 capsule 0 07/06/2022 07/11/2022 Active Comment on above: Take 1 capsule by [facility] twice daily for 5 days. furosemide 20 mg oral tablet (20 sources) Loop Diuretic Start: 05-21-2025 Start: 05-21-2025 Start: 05-21-2025 Start: 05-09-2025 End: 05-21-2025 take 3 tablets by mouth once daily Furosemide (Lasix) 20 mg tablet Discontinued 60 mg PO DAILY 90 30 0 May 09, 2025 12:00am May 21, 2025 10:40am Start: 12-30-2023 End: 04-24-2025 take 1 tablet by mouth once daily Furosemide 40 mg tablet Discontinued 40 mg PO DAILY 90 3 June 30, 2024 5:30pm April 24, 2025 10:05am take 1 tablet by [facility] twice daily furosemide (LASIX) 40 mg tablet Take 40 mg by mouth two times a day. 0 Active ketoconazole 20 mg/ml medicated shampoo (2 sources) Azole Antifungal Start: 02-05-2025 End: 02-15-2025 ketoconazole (NIZORAL) 2 % shampoo Indications: Itchy scalp Apply to affected area two times a week for 10 days. 120 mL 1 02/05/2025 02/15/2025 Active latanoprost 0.05 mg/ml ophthalmic solution (20 sources) Prostaglandin Analog Start: 03-16-2025 take 1 drop(s) into the eye(s) once daily at bedtime latanoprost (XALATAN) 0.005 % ophthalmic solution 1 drop daily at bedtime. Active LORazepam 0.5 mg oral tablet (13 sources) Benzodiazepine Start: 02-01-2024 End: 02-11-2024 take 1 tablet by mouth twice daily as needed for anxiety LORazepam (ATIVAN) 0.5 mg Indications: Panic disorder Take 1 tablet by mouth two times a day as needed (anxiety) for up to 10 days. 15 tablet 0 02/01/2024 02/11/2024 Active Start: 01-28-2024 End: 02-01-2024 take 1 tablet by mouth once daily as needed for anxiety LORazepam (ATIVAN) 0.5 mg Indications: Panic disorder Take 1 tablet by mouth once daily as needed (anxiety) for up to 4 days. 4 tablet 0 01/28/2024 02/01/2024 Discontinued Start: 01-10-2024 End: 04-12-2024 take 1-2 tablets by mouth three times daily as needed for anxiety Lorazepam (Ativan) 0.5 mg tablet Discontinued 0.5 mg PO THREE TIMES A DAY as needed for anxiety 20 0 January 10, 2024 12:00am April 12, 2024 9:47am 1-2 tabs 3 times a day as needed for anxiety losartan potassium 100 mg oral tablet (20 sources) Angiotensin 2 Receptor Yajaira Start: 07-14-2023 End: 01-04-2025 take 1 tablet by mouth once daily Start: 07-08-2021 End: 02-10-2023 take 1 tablet by mouth once daily losartan (COZAAR) 100 mg tablet Take 1 tablet by mouth once daily. 90 tablet 1 02/10/2023 Active Comment on above: Take 1 tablet by jackelyn th once daily. 24 hr metoprolol succinate 25 mg extended release oral tablet (20 sources) beta-Adrenergic Yajaira Start: 04-24-2025 take 1 tablet by mouth twice daily Start: 04-24-2025 take 1 tablet by jackelyn th twice daily Start: 04-13-2025 End: 04-24-2025 take 1 tablet by mouth once daily Metoprolol Succinate 25 mg tablet extended release 24 hr Discontinued 25 mg PO daily 30 April 13, 2025 3:32pm April 24, 2025 10:26am Start: 03-13-2025 End: 04-13-2025 take 1 tablet by mouth once daily Metoprolol Succinate 50 mg tablet extended release 24 hr Discontinued 50 mg PO daily March 16, 2025 12:00am April 13, 2025 3:33pm Start: 01-07-2024 End: 01-12-2024 take 1 tablet by mouth once metoprolol tartrate, short acting, (LOPRESSOR) 25 mg tablet Take 1 tablet by mouth once daily. Per cardio 30 tablet 0 01/07/2024 01/12/2024 Discontinued (Adjust Sig - Block E-Cancel) Start: 01-06-2024 End: 02-20-2025 take 1 tablet by mouth twice daily Metoprolol Tartrate 25 mg tablet Discontinued 25 mg PO TWICE A DAY 180 February 29, 2024 9:15am February 20, 2025 10:44am On Hold: Bradycardia 04/12/24 Start: 01-05-2024 End: 01-07-2024 metoprolol tartrate 37.5 mg tab Take 1 tablet by mouth two times a day. Per [facility] 0 01/05/2024 01/07/2024 Discontinued Start: 01-04-2024 metoprolol tar trate, short acting, 37.5 mg tab Take 0.5 tablets by mouth two times a day. Per [facility] 0 01/04/2024 Active Start: 01-04-2024 End: 01-06-2024 Metoprolol Tartrate 25 mg ta blet Discontinued 37.5 mg PO TWICE A DAY January 04, 2024 11:09am January 06, 2024 12:52pm Start: 01-04-2024 End: 01-04-2024 take 2 tablets by mouth twice daily Metoprolol Tartrate 25 mg tablet Discontinued 50 mg PO TWICE A DAY January 04, 2024 10:18am January 04, 2024 11:10am Start: 12-30-2023 End: 01-04-2024 take 1 tablet by mouth twice daily Metoprolol Tartrate 25 mg Tablet Discontinued 25 mg PO TWICE A DAY 120 0 December 30, 2023 12:00am January 04, 2024 10:19am Potassium (20 sources) take 20 mEq by mouth once daily POTASSIUM ORAL Take 20 mEq by mouth once daily. Active take 20 mEq by mouth once daily POTASSIUM ORAL Take 20 mEq by mouth once daily. 0 Active predniSONE 10 mg oral tablet (10 sources) Start: 12-15-2021 End: 12-25-2022 predniSONE (DELTASONE) 10 mg tablet Take 6 tabs by mouth for 3 days then 4 tabs a day for 3 days then 2 tabs a day for 3 days and then 1 tab a day for 3 days. 39 tablet 0 12/15/2021 12/25/2022 Discontinued Comment on above: Take 6 tabs by mouth for 3 days then 4 tabs a day for 3 days then 2 tabs a day for 3 days and then 1 tab a day for 3 days. simvastatin 20 mg oral tablet (20 sources) HMG-CoA Reductase Inhibitor Start: 04-28-2021 End: 11-27-2024 take 1 tablet by mouth at bedtime Comment on above: Take 1 tablet by jackelyn th daily at bedtime. spironolactone 25 mg oral tablet (7 sources) Aldosterone Antagonist Start: 04-10-2025 take 1 tablet by mouth once daily triamcinolone acetonide 1 mg/ml topical cream (2 sources) Corticosteroid Start: 02-05-2025 End: 02-10-2025 triamcinolone acetonide (KENALOG) 0.1 % cream Indications: Rash Apply to affected area two times a day for 5 days. 80 g 02/05/2025 02/10/2025 Active 24 hr venlafaxine 150 mg extended release oral capsule (20 sources) Serotonin and Norepinephrine Reuptake Inhibitor Start: 04-12-2024 take 1 capsule by mouth every twenty-four hours at bedtime Start: 01-12-2024 End: 02-19-2025 take 1 capsule by mouth once daily venlafaxine ER (EFFEXOR XR) 150 mg 24 hr capsule Take 1 capsule by mouth once daily. 90 capsule 1 02/20/2025 Active Start: 12-28-2023 End: 09-18-2024 take 1 capsule by mouth every twenty-four hours at bedtime Venlafaxine 75 mg capsule,extended release 24hr Discontinued 75 mg PO AT BEDTIME December 28, 2023 12:00am April 12, 2024 9:42am depression Start: 07-14-2023 End: 01-12-2024 take 1 capsule by mouth once daily venlafaxine ER (EFFEXOR XR) 75 mg 24 hr capsule Take 1 capsule by mouth once daily. 90 capsule 1 11/26/2023 01/12/2024 Discontinued Start: 04-28-2021 End: 07-02-2022 take 1 capsule by mouth once daily venlafaxine ER (EFFEXOR XR) 75 mg 24 hr capsule Take 1 capsule by mouth once daily. 90 capsule 4 07/02/2022 Active Comment on above: Take 1 capsule by mo uth once daily. Vit C,F-Ci-Qctcv-Lutei n-Zeaxan (Preservision Areds-2) 250-90-40-1 mg capsule (7 sources) Start: 04-10-2025 take 2 capsules by mouth twice daily Vit C,P-Fo-Gcmem-Lutein -Zeaxan (Preservision Areds-2) 250-90-40-1 mg capsule Active 1 {tbl} PO TWICE A DAY April 10, 2025 12:00am Complies with drug therapy Start: 04-10-2025 take 2 capsules by m outh twice daily Start: 04-10-2025 take 2 capsules by m outh twice daily Vit C,B-Ui-Xvldb-Lutein-Zeaxan (Preservision Areds-2) 250-90-40-1 mg capsule Active 1 {tbl} PO TWICE A DAY April 10, 2025 12:00am Completed/Discontinued Medications Medication Drug Class(es) Dates Sig (Normalized) Sig (Original) amLODIPine 5 mg oral tablet (20 sources) Dihydropyridine Calcium Channel Yajaira Start: 04-10-2025 End: 04-10-2025 take 1 tablet by mouth once daily Amlodipine 5 mg tablet Discontinued 5 mg PO daily April 10, 2025 12:00am April 10, 2025 9:19am Start: 07-14-2023 End: 03-16-2025 take 1 tablet by mouth once daily Amlodipine 5 mg tablet Discontinued 5 mg PO DAILY 90 October 17, 2024 3:14pm March 16, 2025 9:07am blood pressure Start: 04-28-2021 End: 07-02-2022 take 1 tablet by mouth once daily amLODIPine (NORVASC) 5 mg tablet Take 1 tablet by mouth once daily. 90 tablet 4 07/02/2022 Active Comment on above: Take 1 tablet by jackelyn th once daily. apixaban 5 mg oral tablet (20 sources) Factor Xa Inhibitor Start: End: take 1 tablet by mouth twice daily Apixaban (Eliquis) 5 mg tablet Discontinued 5 mg PO TWICE A DAY 180 April 21, 2024 9:39am December 29, 2024 3:50pm benzonatate 200 mg oral capsule (4 sources) Non-narcotic Antitussive Start: End: take 1 capsule by mouth three times daily as needed for cough Benzonatate 200 mg capsule Discontinued 200 mg PO 3 TIMES DAILY NEEDED as needed for cough May 02, 2025 12:00am May 10, 2025 11:38am cefadroxil 500 mg oral capsule (4 sources) Cephalosporin Antibacterial Start: End: take 1 capsule by mouth twice daily Cefadroxil 500 mg capsule Discontinued 500 mg PO TWICE A DAY May 02, 2025 12:00am May 10, 2025 11:38am microencapsulated potassium chloride 20 meq extended release oral tablet (20 sources) Start: End: Potassium Chloride (Klor-Con M20) 20 mEq tablet,ER particles/crystals Discontinued 20 meq PO DAILY 90 December 29, 2024 3:49pm April 10, 2025 9:20am torsemide 20 mg oral tablet (6 sources) Loop Diuretic Start: End: take 1 tablet by mouth once daily in the morning Torsemide 20 mg tablet Discontinued 20 mg PO EVERY MORNING 30 0 April 24, 2025 12:00am May 09, 2025 12:20pm Start: 04-24-2025 take 1 tablet by mouth once da katrin in the morning Problems Active Problems Problem Classification Problem Date Documented Da te Episodic/Chronic Adjustment disorders (20 sources) Adjustment disorder with depressed mood; Translations: [Adjustment disorder with depressed mood] Onset: 04-08-2005 Chronic Anxiety disorders (20 sources) Panic disorder; Translations: [Panic disorder [episodic paroxysmal anxiety]] Onset: 02-01-2024 01-12-2024 Chronic Cardiac dysrhythmias (20 sources) Cardiac arrhythmia; Translations: [Cardiac arrhythmia, unspecified] Onset: 01-04-2024 12-27-2023 Chronic Cardiac dysrhythmias (10 sources) Bradycardia; Translations: [Bradycardia, unspecified] 01-12-2024 Episodic Conditions associated with dizziness or vertigo (1 source) Dizziness and giddiness; Translations: [Dizziness and giddiness] Onset: 03-16-2025 Episodic Congestive heart failure; nonhypertensive (20 sources) Acute systolic heart failure; Translations: [Acute systolic (congestive) heart failure] Onset: 01-04-2024 Resolved: 01-05-2024 01-04-2024 Chronic Diabetes mellitus without complication (5 sources) Ketonuria; Translations: [Acetonuria] Onset: 05-11-2025 01-05-2024 Episodic Disorders of lipid metabolism (20 sources) Mixed hyperlipidemia; Translations: [Mixed hyperlipidemia] Onset: 03-30-2012 Chronic Essential hypertension (20 sources) Benign essential hypertension; Translations: [Essential (primary) hypertension] Onset: 01-06-2008 Chronic Glaucoma (16 sources) Preglaucoma, unspecified, right eye; Translations: [Preglaucoma, unspecified] Onset: 01-08-2025 01-08-2025 Chronic Immunizations and screening for infectious disease (2 sources) Vaccination needed; Translations: [Encounter for immunization] Onset: 05-19-2025 Episodic Malaise and fatigue (1 source) Fatigue; Translations: [Other fatigue] 12-27-2023 Episodic Nausea and vomiting (2 sources) Nausea; Translations: [Vomiting, unspecified] Onset: 05-19-2025 Episodic Nonspecific chest pain (10 sources) Chest pain; Translations: [Chest pain, unspecified] Onset: 03-16-2025 03-16-2025 Episodic Osteoarthritis (20 sources) Degenerative joint disease involving multiple joints; Translations: [Polyosteoarthritis, unspecified] Onset: 12-27-2023 4 Chronic Other aftercare (20 sources) Long-term current use of anticoagulant; Translations: [[facility] (current) use of anticoagulants] Onset: 01-04-2024 01-04-2024 Episodic Other aftercare (20 sources) Long-term current use of amiodarone; Translations: [Other ad terminal makeup operator (current) drug therapy] 04-12-2024 Episodic Other aftercare (3 sources) Other [facility] (current) drug therapy; Translations: [On amiodarone therapy] Onset: 04-28-2021 Episodic Other connective tissue disease (1 source) Other specified soft tissue disorders; Translations: [Leg swelling] Onset: 04-17-2025 Episodic Other connective tissue disease (1 source) Pain in left lower leg; Translations: [Pain of left calf] Onset: 04-17-2025 Episodic Other diseases of kidney and ureters (3 sources) Renal impairment; Translations: [Disorder of kidney and ureter, unspecified] 05-09-2025 Episodic Other ear and sense organ disorders (1 source) Excessive cerumen in ear canal ; Translations: [Impacted cerumen, left ear] 01-08-2025 Episodic Other gastrointestinal disorders (1 source) Diarrhea; Translations: [Diarrhea, unspecified] Episodic Other inflammatory condition of skin (1 source) Scalp itchy; Translations: [Pruritus, unspecified] 02-05-2025 Episodic Other lower respiratory disease (1 source) Cough; Translations: [Acute cough] Episodic Other lower respiratory disease (10 sources) Hypoxemia; Translations: [Hypoxemia] 01-04-2024 Episodic Other lower respiratory disease (20 sources) Dyspnea; Translations: [Shortness of breath] 04-10-2025 Episodic Other lower respiratory disease (2 sources) Dyspnea, unspecified; Translations: [Nocturnal dyspnea] Onset: 05-17-2025 Episodic Other lower respiratory disease (1 source) Other forms of dyspnea; Translations: [CASTANON (dyspnea on exertion)] Onset: 05-19-2025 Episodic Other lower respiratory disease (3 sources) Shortness of breath; Translations: [SOB (shortness of breath)] Onset: 04-17-2025 Episodic Other nervous system disorders (20 sources) Bilateral carpal tunnel syndrome; Translations: [Carpal tunnel syndrome, bilateral upper limbs] Onset: 03-14-2020 04-28-2021 Chronic Other screening for suspected conditions (not mental disorders or infectious disease) (1 source) Other specified abnormal findings of blood chemistry; Translations: [Other abnormal blood chemistry] 01-05-2024 Episodic Other skin disorders (1 source) Eruption; Translations: [Rash and other nonspecific skin eruption] 02-05-2025 Episodic Other upper respiratory disease (20 sources) Vasomotor rhinitis; Translations: [Vasomotor rhinitis] Onset: 06-03-2015 Chronic Other upper respiratory infections (1 source) Acute upper respiratory infection, unspecified; Translations: [Acute upper respiratory infection] Onset: 04-25-2025 Episodic Residual codes; unclassified (20 sources) Sleep apnea; Translations: [Sleep apnea, unspecified] Onset: 06-13-2013 04-28-2021 Chronic Comment on above: moderate about 15 ye ars ago Residual codes; unclassified (1 source) Primary central sleep apnea; Translations: [Primary central sleep apnea] Onset: 06-01-2025 Chronic Residual codes; unclassified (1 source) Hypersomnia, unspecified; Translations: [Hypersomnia, unspecified] Onset: 06-02-2025 Chronic Residual codes; unclassified (5 sources) Active living will ; Translations: [Personal history of other specified conditions] Onset: 12-15-2021 Episodic Residual codes; unclassified (2 sources) Menopause present; Translations: [Asymptomatic menopausal state] 12-27-2023 Episodic Residual codes; unclassified (7 sources) Edema of left lower limb; Translations: [Localized edema] 04-10-2025 Episodic Residual codes; unclassified (1 source) Localized edema; Translations: [Localized edema] Onset: 05-21-2025 Episodic Spondylosis; intervertebral disc disorders; other back problems (20 sources) Degeneration of cervical intervertebral disc; Translations: [Other cervical disc degeneration, unspecified cervical region] Onset: 03-14-2020 04-28-2021 Chronic Substance-related disorders (20 sources) Smoker; Translations: [Nicotine dependence, unspecified, uncomplicated] Onset: 06-13-2013 Chronic Unclassified (20 sources) Active living will ; Translations: [Living will on file] Onset: 12-15-2021 12-15-2021 Past or Other Problems Problem Classification Problem Date Documented Date Episodic/Chronic Administrative/social admission (20 sources) Advance directive discussed with patient; Translations: [Other specified counseling] Onset: 12-15-2021 Episodic Deficiency and other anemia (20 sources) Iron deficiency anemia; Translations: [Iron deficiency anemia, unspecified] Onset: 04-08-2005 Resolved: 06-03-2015 06-03-2015 Episodic Neoplasms of unspecified nature or uncertain behavior (17 sources) 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; Translations: [Neoplasm of uncertain behavior of skin] Onset: 01-08-2025 Resolved: 01-30-2025 01-08-2025 Episodic Other aftercare (20 sources) Patient encounter status; Translations: [Other [place] therapy] Onset: 04-28-2021 Episodic Other connective tissue disease (20 sources) Supraspinatus tendinitis; Translations: [Shoulder lesion, unspecified, unspecified shoulder] Onset: 06-13-2013 Resolved: 06-04-2016 06-04-2016 Episodic Other ear and sense organ disorders (1 source) Impacted cerumen, left ear; Translations: [Excessive ear wax, left] Onset: 01-08-2025 Episodic Other inflammatory condition of skin (1 source) Pruritus, unspecified; Translations: [Itchy scalp] Onset: 02-05-2025 Episodic Other non-traumatic joint disorders (16 sources) Shoulder pain; Translations: [Pain in right shoulder] Onset: 12-19-2021 Episodic Other non-traumatic joint disorders (20 sources) Pain in right hip joint; Translations: [Pain in right hip] Onset: 12-19-2021 Episodic Other non-traumatic joint disorders (20 sources) Pain in right knee; Translations: [Other acute pain] Onset: 12-30-2022 Resolved: 12-27-2023 Episodic Other non-traumatic joint disorders (20 sources) Pain in right shoulder; Translations: [Pain in joint, shoulder region] Onset: 12-19-2021 Resolved: 12-27-2023 12-19-2021 Episodic Other non-traumatic joint disorders (20 sources) Hip pain; Translations: [Pain in right hip] Onset: 12-19-2021 12-15-2021 Episodic Other skin disorders (1 source) Rash and other nonspecific skin eruption; Translations: [Rash] Onset: 07-14-2025 Episodic Screening and history of mental health and substance abuse codes (1 source) Encounter for screening for depression; Translations: [Screening for depression] Onset: 01-08-2025 Episodic Spondylosis; intervertebral disc disorders; other back problems (20 sources) Cervical radiculopathy; Translations: [Radiculopathy, cervical region] Onset: 03-14-2020 04-28-2021 Episodic Viral infection (17 sources) Disease caused by 2019-nCoV; Translations: [COVID-19] Onset: 01-30-2025 05-01-2024 Episodic Results Test Name Value Interpretation Reference Range Facility Comprehensive Metabolic Prof [facility] 06-06-2025 Albumin [Mass/Vol] 3.9 g/dL Normal 3.4-4.8 [facility] Comment on above: Performed By: #### L 501.4021 #### [facility] [address] [place], [address] Albumin/Globulin [Mass ratio] 1.8 {ratio} Normal 0.9-2.4 [facility] Comment on above: Performed By: #### L 501.4021 #### [facility] [address] [place], [address] ALK PHOS 146 U/L High 35-104 [facility] Comment on above: Performed By: #### L 501.4021 #### [facility] [address] [place], [address] ALT [Catalytic activity/Vol] 65 U/L High <=34 [facility] Comment on above: Performed By: #### L 501.4021 #### [facility] [address] [place], [address] AST [Catalytic activity/Vol] 47 U/L High <=31 [facility] Comment on above: Performed By: #### L 501.4021 #### [facility] [address] [place], [address] Bilirubin [Mass/Vol] 1.03 mg/dL Normal 0.00-1.30 [facility] Comment on above: Performed By: #### L 501.4021 #### [facility] [address] [place], [address] BUN/CRE 23.4 RATIO High 10-20 [facility] Comment on above: Performed By: #### L [id number] #### [facility] [address] [place], [address] Calcium [Mass/Vol] 9.3 mg/dL Normal 7.6-11.0 [facility] Comment on above: Performed By: #### L 501.4021 #### [facility] [address] [place], [address] Chloride [Moles/Vol] 103 mmol/L Normal 98-108 [facility] Comment on above: Performed By: #### L 501.4021 #### [facility] [address] [place], [address] CO2 [Moles/Vol] 24.6 mmol/L Normal 21.0-32.0 [facility] Comment on above: Performed By: #### L 501.4021 #### [facility] [address] [place], [address] Creatinine [Mass/Vol] 1.48 mg/dL High 0.70-1.20 [facility] Comment on above: Performed By: #### L [id number] #### [facility] [address] [place], [address] GAP 13 Normal 5-15 [facility] Comment on above: Performed By: #### L 501.4021 #### [facility] [address] [place], [address] GFR/1.73 sq M.predicted among non-blacks MDRD (S/P/Bld) [Vol rate/Area] 34 mL/min/{1.73_m2} Low >60 [facility] Comment on above: Result Comment: mL/m in/1.73m2 CKD-EPI Creatinine Equation (2020) Performed By: #### L 501.4021 #### [facility] [address] [place], [address] Globulin (S) [Mass/Vol] 2.2 g/dL Normal 2.2-4.2 [facility] Comment on above: Performed By: #### L 501.4021 #### [facility] [address] [place], [address] Glucose [Mass/Vol] 202 mg/dL High 70-99 [facility] Comment on above: Performed By: #### L 501.4021 #### [facility] [address] [place], [address] Potassium [Moles/Vol] 4.2 mmol/L Normal 3.3-5.1 [facility] Comment on above: Performed By: #### L [id number] #### [facility] [address] [place], [address] Sodium [Moles/Vol] 141 mmol/L Normal 133-145 [facility] Comment on above: Performed By: #### L 501.4021 #### [facility] [address] [place], [address] T PROT 6.1 g/dL Normal 5.9-8.4 [facility] Comment on above: Performed By: #### L [id number] #### [facility] [address] [place], [address] Urea nitrogen [Mass/Vol] 35 mg/dL High 4-19 [facility] Comment on above: Performed By: #### L 501.4021 #### [facility] [address] [place], [address] Pro- Brain NATRIURETIC PEPTI Alec 06-06-2025 Natriuretic peptide B (Bld) [Mass/Vol] 38313 pg/mL High <=1800 [facility] Comment on above: Result Comment: Hear t Failure Unlikely: < 300 pg/mL Heart Failure Likely < 50 Years: > 450 pg/mL 50-75 Years: > 900 pg/mL >75 Years: > 1800 pg/mL Performed By: #### L 501.4021 #### [facility] [address] [place], [address] Prothrombin Time w/INRon INR Coag (PPP) [Relative time] 1.8 {INR} Normal [facility] Comment on above: Performed By: #### L 501.4021 #### [facility] [address] [place], [place], [address] PT Coag (PPP) [Time] 21.2 s High 11.7-14.9 [facility] Comment on above: Performed By: #### L 501.4021 #### [facility] [address] [place], [place], [address] Pulmonary Visit Reporton Pulmonary Visit Report [facility]monary Medicine [address] [place], [place] [address] OFFICE VISIT Date of Service: 06/01/25 MR#: [id number] Acct: [id number] Name: CHERYL ABARCA Rep #: [id number] : 1935 Provider: Genesis Quinn NP Age/Sex: 89/F Location: [facility] [place].[facility] Status: Signed Assessment and Plan Assessment and Plan (1) Central sleep apnea: Status: Acute Comment: AHI 23.3 Plan: Moderate central sleep apnea has been identified. The patient was does have hypoxemia identified during the study. I have discussed the pathophysiology of central sleep apnea at length with prema prasad and her spouse along with her son who is on the phone today during the visit. I have discussed recommended treatment regimen and have recommended that she begin BiPAP 15 over 11 cm with a backup rate of 10 at this time. The patient is agreeable to begin use of PAP therapy. This should be done CHELLY as the patient has had frequent CHF exacerbations recently. I have discussed the relationship between central sleep apnea and cardiovascular disease. I do believe that treating CSA will provide her with significant benefit. The patient will follow-up in 6 to 8 weeks with compliance download from the device. (2) Shortness of breath: Status: Acute Plan: Likely related to HFrEF, CHF, paroxysmal atrial fibrillation. I recommended a 6-minute walk test at this time to determine if the patient desaturates with ambulation. The patient did not desaturate with ambulation and so no supplemental oxygen is warranted with exertion at this time. For now await response to PAP therapy. (3) CHF exacerbation: Status: Chronic Plan: It is imperative that CSA is treated at this time as there is significant risk for CHF exacerbation. (4) Nocturia: Status: Acute Plan: I have discussed the relationship between nocturia and sleep apnea. While the patient could be having frequent nocturia due to a pharmacological side effect she may also be having frequent nocturia due to uncontrolled sleep apnea. Await response to PAP therapy. Orders: Orders Walking Oximetry Today R06.02 - Shortness of breath Plan This note was generated with Aiming dictation software. It may contain incorrect words, spelling, and punctuation that were not noted in checking the note before signing. Plan Details Follow Up: 6 to 8 weeks (LMR) HPI HPI Comments Details: Patient is an 89-year-old female here to establish for sleep apnea. She is ambulatory and currently on room air. She is referred to this practice by [facility] after completing a sleep study. Comorbid conditions include HFrEF, CHF, paroxysmal atrial fibrillation, hypertension. She completed a sleep study on May 22, 2025 which showed moderate central sleep apnea with an AHI of 23.3 events per hour using the 4% rule and using the 3% rule the AHI was 24.5 events per hour. Her average saturation during sleep was 91% and there were 34 minutes below 88%. The recommendation is to trial her on BiPAP 09/06 with a backup rate of 10. Also identified on the sleep study was periods of sinus and wide-complex tachycardia. The patient has no history of pneumonia or bronchitis. She has no history of childhood asthma. She reports that she is a former smoker. At the most she smoked 1 pack/week. She quit in December 2023 after she had smoked a pipe. She reports that she had previously quit for 30 years. She is retired now. 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 She reports that her father did snore but there is no known family history of sleep apnea. She does snore and talk in her sleep. She reports daytime tiredness. She is not rested upon awakening. She does try to nap. Nocturia does occur x 3. She is uncertain whether she awakens at night because she is unable to breathe and that causes her to then consider urination or if she truly awakens for nocturia. She does report a dry mouth is present. She does have shortness of breath with sitting and exerting. She reports very little cough is present. She denies wheeze. She denies chest pain and chest pressure. She does not use supplemental oxygen. Intake Vital Signs 05/21/25 07:53 05/28/25 12:12 06/01/25 06:01 Height 5 ft 2 in 5 ft 2 in 5 ft 2 in Weight: 158 lb BMI 28.9 BP 124/81 H Blood Pressure Location Lt brachial Position Sitting Respiration 20 H Pulse 61 Pulse Source Monitor Temp 97.2 F L Temperature Source Temporal Artery Pulse Oximetry (%) 97 Oxygen Delivery Method room air Intake Visit Reasons: Sleep problems Anesthetic Assistant Required: No Accompanied by: Is patient in pain?: No Allergies sulfamethoxazole (From Bactrim) Allergy (Intermediate, Verified 06/01/25 08:57) Rash trimethoprim (From Bactrim) Allergy (In (more content not included)... Normal [facility] Visit Reporton Cardiology Visit Report [facility] [address] [place] [address] OFFICE VISIT Date of Service: 05/31/25 MR#: [id number] Acct: [id number] Name: CHERYL ABARCA Rep #: [id number] : 1935 Provider: SATHISH funes Age/Sex: 89/F Location: [facility] [place].[facility] Status: Signed HPI HPI History of Present Illness Details: Cheryl Abarca is an 89-year-old female who presents to office today for a cardiovascular follow-up visit. She presented to [facility] ED 05/02/25 and again on 05/09/2025 for dyspnea and orthopnea and was found to be in A.fib with RVR both times. 05/02 BNP 6615, 05/09 BNP 11,842. She stated that she had about 5 days of feeling "good" after initial visit before becoming symptomatic again prompting her to return to the ED. On 05/09/2025, chest xray showed mild cardiomegaly and vascular congestion without large effusion, pneumothorax, pneumonia that was slightly worse than previous chest x-ray. Patient had a similar episode in December 2023 where she presented for similar symptoms and was found to be in A.fib with RVR (HRs 120-140). A. fib was diagnosed at this time and metoprolol was increased. At that time echocardiogram demonstrated ejection fraction of 50% and stage III diastolic dysfunction. Left and right atrium were noted to be normal size, PASP was 38 mmHg. From a cardiac standpoint, the patient is doing well. She denies any palpitations, chest pain, pressure or heaviness. She does acknowledge SOB with exertion and at rest. She does acknowledge Orthopnea. She denies PND. She does not have bleeding issues; no blood in urine, stool, or nosebleeds. She does acknowledge fatigue. She denies myalgias, or claudication. She does acknowledge bilateral lower extremity edema. She does not have sudden weight gain. She does acknowledge occasional lightheadedness with quick positional changes. She denies dizziness, syncopal or near syncopal episodes, and headaches. Intake Vital Signs 05/28/25 12:12 05/31/25 07:52 Height 5 ft 2 in 5 ft 2 in Weight: 159 lb BMI 29.0 BP 135/75 H Blood Pressure Location Lt brachial Position Sitting Respiration 20 H Pulse 110 H Pulse Source Monitor Pulse Oximetry (%) 97 Intake Visit Reasons: S/P [facility] 05/28 Anesthetic Assistant Required: No Is patient in pain?: No Allergies sulfamethoxazole (From Bactrim) Allergy (Intermediate, Verified 05/31/25 09:45) Rash trimethoprim (From Bactrim) Allergy (Intermediate, Verified 05/31/25 09:45) Rash Sulfa (Sulfonamide Antibiotics) Allergy (Mild, Verified 05/31/25 09:45) Rash Medications ???Medication ???Instructions ???Recorded ???Confirmed ???Type losartan 100 mg tablet 100 mg PO DAILY blood pressure 11/1605/31/25 History simvastatin 20 mg tablet 20 mg PO QHS cholesterol 12/28/23 05/31/25 History calcium carbonate (Tums) 300 mg PO BID 04/12/24 05/31/25 Hi story venlafaxine 150 mg 150 mg PO QHS 04/12/24 05/31/25 Hi story capsule,extended release 24 hr apixaban 5 mg tablet (Eliquis) 5 mg PO BID #180 TABLETS 12/29/24 05/31/25 Rx latanoprost 0.005 % eye drops 1 drp ophthalmic (eye) QDAY 05/31/25 History spironolactone 25 mg tablet 25 mg PO QDAY #90 tabs 04/10/25 Rx vit C 250 mg-vit E 90 mg-zinc 40 1 tab PO BID 04/10/25 05/31/25 His tory mg-copper 1 qm-sgjlob-qedayd capsule (PreserVision AREDS-2) amiodarone 200 mg tablet 200 mg PO QDAY #30 tabs 04/13/25 1 07/31/24 Rx cholecalciferol (vitamin D3) 50 2,000 unit PO QDAY 04/20/25 History mcg (2,000 unit) tablet furosemide 20 mg tablet (Lasix) 60 mg PO BREAKFAST 05/21/25 History buspirone 7.5 mg tablet 7.5 mg PO BID 05/28/25 05/31/25 Hi story benzonatate 100 mg capsule 100 mg PO BID PRN 05/31/25 5 History dapagliflozin propanediol 10 mg 10 mg PO QAM #30 tabs 05/31/2501/17 Rx tablet (Farxiga) metoprolol succinate 25 mg 50 mg (2 x 25 mg) PO BID #60 tabs 05/31/25 05/31/25 Rx tablet,extended release 24 hr Ejection fraction %: 40 Have you fallen in the past year?: No PFSH Medical History HTN (hypertension), benign Paroxysmal atrial fibrillation Bradycardia Anxiety and depression Smoker Sleep apnea HTN (hypertension) Afib Surgical History History of tonsillectomy History of carpal tunnel release Family History Mother Hypertension Grandfather Hypertension Grandmother Hypertension Father Cancer Social History household members: spouse Smoking Status: Former smoker how long ago did patient quit smokin12/30/2023 alcohol intake: current alcohol in (more content not included)... Normal [facility] 12 Lead EKGon 05-28-2025 12 Lead EKG [facility] Cardiovascular Services [address] [place] [address] 12 Lead EKG 05/28/25 1229 MR#: [id number] Acct: [id number] Name: CHERYL ABARCA Rep #: [id number] : 1935 89 From: Chato Cota MD Attending Dr: Status: DEP ER Ordering Dr: Letty Kan MD Date: 05/28/25 Location: ED Sex: F C Admitted: Test Reason : SOB Blood Pressure : */* mmHG Vent. Rate : 67 BPM Atrial Rate : 67 BPM P-R Int : 182 ms QRS Dur : 128 ms QT Int : 432 ms P-R-T Axes : 34 48 202 degrees QTcB Int : 456 ms Sinus rhythm with Premature atrial complexes Possible Left atrial enlargement Left bundle branch block Abnormal ECG Confirmed by Chato Cota ([id number]), editor department PATRICIA CARPENTER ([id number]) on 05/29/2025 8:54:32 AM Referred By: CINDY/ALTA Confirmed By: Chato Cota 05/29/25 0854 Date Chato Cota MD CC: Dr. Letty Kan MD; Dr. Carl Rendon MD Signed [facility] Basic Metabolic Profile (BMP )on 11-03-2025 BUN/CRE 20.5 RATIO High 10-20 [facility] Comment on above: Performed By: #### L 100.0100, L500.2500 ####[facility] [address] [place], [address] Calcium [Mass/Vol] 9.7 mg/dL Normal 7.6-11.0 [facility] Comment on above: Performed By: #### L 100.0100, L500.2500 ####[facility] [address] [place], [address] Chloride [Moles/Vol] 103 mmol/L Normal 98-108 [facility] Comment on above: Performed By: #### L 100.0100, L500.2500 ####[facility] [address] [place], [address] CO2 [Moles/Vol] 22.1 mmol/L Normal 21.0-32.0 [facility] Comment on above: Performed By: #### L 100.0100, L500.2500 ####[facility] [address] [place], [address] Creatinine [Mass/Vol] 1.29 mg/dL High 0.70-1.20 [facility] Comment on above: Performed By: #### L 100.0100, L500.2500 ####[facility] [address] [place], [address] ECRCL 27.69 ml/min Low 50-250 [facility] Comment on above: Performed By: #### L 100.0100, L500.2500 ####[facility] [address] [place], [address] GAP 14 Normal 5-15 [facility] Comment on above: Performed By: #### L 100.0100, L500.2500 ####[facility] [address] [place], [address] GFR/1.73 sq M.predicted among non-blacks MDRD (S/P/Bld) [Vol rate/Area] 40 mL/min/{1.73_m2} Low >60 [facility] Comment on above: Result Comment: mL/m in/1.73m2 CKD-EPI Creatinine Equation (2020) Performed By: #### L 100.0100, L500.2500 ####[facility] [address] [place], [address] Glucose [Mass/Vol] 129 mg/dL High 70-99 [facility] Comment on above: Performed By: #### L 100.0100, L500.2500 ####[facility] [address] [place], [address] Potassium [Moles/Vol] 4.1 mmol/L Normal 3.3-5.1 [facility] Comment on above: Performed By: #### L 100.0100, L500.2500 ####[facility] [address] [place], [address] Sodium [Moles/Vol] 140 mmol/L Normal 133-145 [facility] Comment on above: Performed By: #### L 100.0100, L500.2500 ####[facility] [address] [place], [address] Urea nitrogen [Mass/Vol] 27 mg/dL High 4-19 [facility] Comment on above: Performed By: #### L 100.0100, L500.2500 ####[facility] [address] [place], [address] CBC W/Diff, Automatedon 11-0 Absolute Lymph 1.38 X10 3/uL Normal 0.83-4.51 [facility] Comment on above: Performed By: #### L 100.0100, L500.2500 ####[facility] [address], [address] Absolute Neut 8.7 X10 3/uL High 2.0-7.7 [facility] Comment on above: Performed By: #### L 100.0100, L500.2500 ####[facility] [address], [address] Basophils/100 WBC (Bld) 0.6 % Normal 0-1 [facility] Comment on above: Performed By: #### L 100.0100, L500.2500 ####[facility] [address] [place], [address] Eosinophils/100 WBC (Bld) 1.0 % Normal 0-5 [facility] Comment on above: Performed By: #### L 100.0100, L500.2500 ####[facility] [address] [place], [address] Erythrocyte distribution width (RBC) [Ratio] 15.2 % High 11.6-14.6 [facility] Comment on above: Performed By: #### L 100.0100, L500.2500 ####[facility] [address] [place], [address] Hematocrit (Bld) [Volume fraction] 41.4 % Normal 37-47 [facility] Comment on above: Performed By: #### L 100.0100, L500.2500 ####[facility] [address] [place], [address] Hemoglobin (Bld) [Mass/Vol] 13.4 g/dL Normal 12.0-15.0 [facility] Comment on above: Performed By: #### L 100.0100, L500.2500 ####[facility] [address] [place], [address] IG% 0.700 Normal 0.0-0.9 [facility] Comment on above: Result Comment: IG% - Immature Granulocytes (promyelocytes, myelocytes and metamyelocytes) > 1% indicates that a LEFT SHIFT is Present. Performed By: #### L 100.0100, L500.2500 ####[facility] [address] [place], [address] Lymphocytes/100 WBC (Bld) 12.6 % Low 19-41 [facility] Comment on above: Performed By: #### L 100.0100, L500.2500 ####[facility] [address] [place], [address] MCH (RBC) [Entitic mass] 31.0 pg Normal 27.0-32.0 [facility] Comment on above: Performed By: #### L 100.0100, L500.2500 ####[facility] [address] [place], [address] MCHC (RBC) [Mass/Vol] 32.4 g/dL Normal 32-36 [facility] Comment on above: Performed By: #### L 100.0100, L500.2500 ####[facility] [address] [place], [address] MCV (RBC) [Entitic vol] 95.8 fL Normal 81-99 [facility] Comment on above: Performed By: #### L 100.0100, L500.2500 ####[facility] [address] [place], [address] Monocytes/100 WBC (Bld) 5.7 % Normal 0-10 [facility] Comment on above: Performed By: #### L 100.0100, L500.2500 ####[facility] [address] [place], [address] Neutrophils/100 WBC (Bld) 79.4 % High 47-70 [facility] Comment on above: Performed By: #### L 100.0100, L500.2500 ####[facility] [address], [address] Nucleated RBC (Bld) [#/Vol] 0 10*3/uL Normal 0-5 [facility] Comment on above: Performed By: #### L 100.0100, L500.2500 ####[facility] [address] [place], [address] Platelet mean volume (Bld) [Entitic vol] 9.4 fL Normal 6.2-12.0 [facility] Comment on above: Performed By: #### L 100.0100, L500.2500 ####[facility] [address] [place], [address] Platelets (Bld) [#/Vol] 272 10*3/uL Normal 150-450 [facility] Comment on above: Performed By: #### L 100.0100, L500.2500 ####[facility] [address] [place], [address] RBC (Bld) [#/Vol] 4.32 10*6/uL Normal 4.2-5.[address] [facility] Comment on above: Performed By: #### L 100.0100, L500.2500 ####[facility] [address] [place], [address] RDW SD 53.2 fl High 35.1-43.9 [facility] Comment on above: Performed By: #### L 100.0100, L500.2500 ####[facility] [address] [place], [address] WBC (Bld) [#/Vol] 10.9 10*3/uL Normal 4.4-11.[address] [facility] Comment on above: Performed By: #### L 100.0100, L500.2500 ####[facility] [address] [place], [address] Chest PA and Lateralon 05-28 Chest PA and Lateral [facility] Imaging Services [address] [place] [address] Chest PA and Lateral MR#: [id number] Acct: [id number] Name: CHERYL ABARCA Rep #: [id number] : 1935 F 89 From: Taz Blake MD PCP: Dr. Carl Rendon MD Status: [facility] ER Study: Chest PA and Lateral Date of Exam: 05/28/25 Exam# [id number] Ordering Dr: Letty Kan MD PROCEDURE: CHEST PA AND LATERAL 05/28/2025 REASON FOR EXAM: DYSPNEA AND ORTHOPNEA TECHNIQUE: Procedure Code: RADCXR Modality: DX Procedure: CHEST PA AND LATERAL COMPARISON: May 09, 2025 FINDINGS: Hardware: EKG leads Heart: Enlarged Mediastinum: There are atherosclerotic calcifications of the thoracic aorta. Mild subglottic narrowing of the trachea. Lungs: Clear except for some subsegmental atelectasis of the right costophrenic sulcus. Bones: Degenerative changes are identified within the thoracic spine. RAD/Chest PA and Lateral IMPRESSION: 1. Cardiac enlargement. 2. Mild subglottic narrowing. Correlate with upper airway symptoms. Consider tracheobronchitis. Reading Location: [facility] CC: Dr. Letty Kan MD; Dr. Carl Rendon MD 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Signed Normal [facility] Emergency Department Summary on 05-28-2025 Emergency Department Summary [facility] Medical Records Department [address] [place] [id number] Emergency Department Summary 05/28/25 MR#: [id number] Acct: [id number] Name: CHERYL ABARCA Rep #: [id number] : 1935 89 From: Letty Kan MD PCP: Dr. Carl Rendon MD Status:[facility] ER Location: ED [facility] History of Present Illness Chief Complaint: Shortness of Breath Narrative Narrative: Patient is a 89-year-old female presenting to the emergency department for dyspnea and Holter monitor placement. Patient has a past medical history of A-fib with RVR on Eliquis, sleep apnea, hypertension, HFrEF, smoking. Patient is a very poor historian. Reportedly she was supposed to have a Holter monitor placed outpatient today and the provider that was going to place it told her that if "you were my family member I would tell you to go to the ED". Therefore patient came here for evaluation. Patient states that for the past few weeks she has had increased lower extremity edema and has felt more short of breath with activity. She reports that last night her heart rate went into the 140s and was notified by her Apple Watch. She does have a history of A-fib. She reports that she is compliant with her medications including her Eliquis and Lasix. She just saw her storage receipt poster on 05/21 and they adjusted her Lasix medication. [facility] Medical History HTN (hypertension), benign Paroxysmal atrial fibrillation Bradycardia Anxiety and depression Smoker Sleep apnea HTN (hypertension) Afib Home Medications ???Medication ???Instructions ???Recorded ???Last Taken ???Type losartan 100 mg tablet 100 mg PO DAILY blood pressure 11/1605/01/25 History simvastatin 20 mg tablet 20 mg PO QHS cholesterol 12/28/23 05/01/25 History calcium carbonate (Tums) 300 mg PO BID 04/12/24 Unknown His tory venlafaxine 150 mg 150 mg PO QHS 04/12/24 05/01/25 Hi story capsule,extended release 24 hr apixaban 5 mg tablet (Eliquis) 5 mg PO BID #180 TABLETS 12/29/24 05/01/25 Rx latanoprost 0.005 % eye drops 1 drp ophthalmic (eye) QDAY Unknown History spironolactone 25 mg tablet 25 mg PO QDAY #90 tabs 04/10/25 Rx vit C 250 mg-vit E 90 mg-zinc 40 1 tab PO BID 04/10/25 05/01/25 His tory mg-copper 1 [id number]-zykeph capsule (PreserVision AREDS-2) amiodarone 200 mg tablet 200 mg PO QDAY #30 tabs 04/13/25 1 Rx cholecalciferol (vitamin D3) 50 2,000 unit PO QDAY 04/20/25 History mcg (2,000 unit) tablet metoprolol succinate 25 mg 25 mg PO BID #60 tabs 04/24/2502/16 Rx tablet,extended release 24 hr furosemide 20 mg tablet (Lasix) 60 mg PO BREAKFAST 05/21/25 Unknow n History buspirone 7.5 mg tablet 7.5 mg PO BID 05/28/25 Unknown His tory Allergy/AdvReac Type Severity Reaction Status Date / Time sulfamethoxazole (From Allergy Intermediate Rash Verified 05/28/25 12:12 Bactrim) trimethoprim (From Bactrim) Allergy Intermediate Rash Verified 05/28/25 12:12 Sulfa (Sulfonamide Allergy Mild Rash Verified 05/28/25 12:12 Antibiotics) Family History Mother Hypertension Grandfather Hypertension Grandmother Hypertension Father Cancer Surgical History History of tonsillectomy History of carpal tunnel release Social History household members: spouse Smoking Status: Former smoker how long ago did patient quit smokin12/30/2023 alcohol intake: current alcohol intake frequency: holidays/special occasions only substance use type: does not use caffeine: No ROS ROS ED ROS Narrative See HPI EXAM Physical Exam Narrative Exam Narrative: Vital signs: Reviewed General: Alert and oriented. No acute distress HEENT: Head is normocephalic and atraumatic, sinuses nontender, pupils equal round and reactive. Nares are patent. Oropharynx and throat exams normal. Neck: Supple without lymphadenopathy nontender Cardiovascular: Regular rate and rhythm, no murmurs. No rubs or gallops. Normal S1 and S2 Respiratory: Clear to auscultation bilaterally. No wheezes, rales, rhonchi Abdominal: Soft and nontender. Normal bowel sounds. No guarding or rebound. Nonsurgical abdomen Extremities: Scant bilateral symmetric lower extremity edema. No tenderness. No bruising. Normal range of motion. Normal sensation. Skin: No rash or redness. Neurological: Cranial nerves II through XII are grossly intact. Normal strength and sensation. Normal cerebellar function The rest of the physical exam is unremarkable Const Vital Signs: 05/28/25 12:12 05/28/25 13:05 05/28/25 13:11 Temperature 97.7 F L Temperature Source Oral (more content not included)... Normal [facility] L501.4021on 05-28-2025 Trop T High Sen 24 ng/L High <=14 [facility] Comment on above: Performed By: #### L 501.4021 #### [facility] Laboratory [address] [place], [address] Pro- Brain NATRIURETIC PEPTI Alec 05-28-2025 Natriuretic peptide B (Bld) [Mass/Vol] 76916 pg/mL High <=1800 [facility] Comment on above: Result Comment: Hear t Failure Unlikely: < 300 pg/mL Heart Failure Likely < 50 Years: > 450 pg/mL 50-75 Years: > 900 pg/mL >75 Years: > 1800 pg/mL Performed By: #### L 501.4021 #### [facility] Laboratory [address] [place], [address] Troponin T HS 2 HRon 025 Trop T High Sen 27 ng/L High <=14 [facility] Comment on above: Performed By: #### L 501.4021 #### [facility] Laboratory [address] [place], [place], [address] [phone] Troponin T HS 4 HRon 025 Trop T High Sen Normal <=14 [facility] Comment on above: Result Comment: Canc elled via OM: Order cancelled - Patient discharged Performed By: #### L 501.4021 #### [facility] Laboratory [address] [place], [place], [address] Anion gap in Serum or Plasma Ordered By: Elida Gann on 05-21-2025 Anion gap [Moles/Vol] 14 mmol/L - [facility] BUN/creatinine ratioOrdered By: Elida Gann on 05-21-2025 Urea nitrogen/Creatinine [Mass ratio] 25.5 mg/mg High 05-14 [facility] Basic Metabolic Profile (BMP )on 05-21-2025 BUN/CRE 25.5 RATIO High 05-14 [facility] Comment on above: Performed By: #### L 501.4021 #### [facility] Laboratory [address] [place], [address] GAP 14 Normal 5-15 [facility] Comment on above: Performed By: #### L 501.4021 #### [facility] [address] [place], [address] Potassium [Moles/Vol] 4.1 mmol/L Normal 3.3-5.1 [facility] Comment on above: Performed By: #### L 501.4021 #### [facility] [address] [place], [address] Carbon dioxide, total [Moles /volume] in Central venous bloodOrdered By: Elida Gann on 05-21-2025 CO2 [Moles/Vol] 21.6 mmol/L Normal 21.0-32.0 [facility] Comment on above: Performed By: #### L 501.4021 #### [facility] [address] [place], [address] Cardiology Visit Reporton Cardiology Visit Report [facility] [address] [place], [place] [address] OFFICE VISIT Date of Service: 05/21/25 MR#: [id number] Acct: [id number] Name: CHERYL ABARCA Rep #: [id number] : 1935 Provider: NKECHI Duffy Age/Sex: 89/F Location: [facility] Status: Signed HPI HPI History of Present Illness Details: Cheryl Abarca is an 89-year-old female who presents to office today for a hospital follow-up visit. She presented to [facility] ED 05/02/25 and again on 05/09/2025 for dyspnea and orthopnea and was found to be in A.fib with RVR both times. 05/02 BNP 6615, 05/09 BNP 11,842. She stated that she had about 5 days of feeling "good" after initial visit before becoming symptomatic again prompting her to return to the ED. On 05/09/2025, chest xray showed mild cardiomegaly and vascular congestion without large effusion, pneumothorax, pneumonia that was slightly worse than previous chest x-ray. Patient had a similar episode in December 2023 where she presented for similar symptoms and was found to be in A.fib with RVR (HRs 120-140). A. fib was diagnosed at this time and metoprolol was increased. At that time echocardiogram demonstrated ejection fraction of 50% and stage III diastolic dysfunction. Left and right atrium were noted to be normal size, PASP was 38 mmHg. Upon presentation today, patient reports not feeling well. She reports her SOB remains significant. SOB with minimal activity. She notes fatigue. Her LE remains significant and she reports minimal to no improvement. NT pro-BNP remains elevated. She becomes lightheaded with standing on occasion. She continues to sleep in a recliner secondary to orthopnea. Further ROS below. Intake Vital Signs 04/24/25 07:54 05/21/25 07:53 Height 5 ft 2 in 5 ft 2 in Weight: 158 lb BMI 28.9 BP 103/63 Blood Pressure Location Lt brachial Position Sitting Respiration 24 H Pulse 104 H Pulse Source Monitor Pulse Oximetry (%) 95 Oxygen Delivery Method room air Intake Visit Reasons: 4 W FU Anesthetic Assistant Required: No Accompanied by: Self Is patient in pain?: No Allergies sulfamethoxazole (From Bactrim) Allergy (Intermediate, Verified 05/21/25 10:35) Rash trimethoprim (From Bactrim) Allergy (Intermediate, Verified 05/21/25 10:35) Rash Sulfa (Sulfonamide Antibiotics) Allergy (Mild, Verified 05/21/25 10:35) Rash Medications ???Medication ???Instructions ???Recorded ???Confirmed ???Type losartan 100 mg tablet 100 mg PO DAILY blood pressure 11/1605/21/25 History simvastatin 20 mg tablet 20 mg PO QHS cholesterol 12/28/23 05/21/25 History calcium carbonate (Tums) 300 mg PO BID 04/12/24 05/21/25 Hi story venlafaxine 150 mg 150 mg PO QHS 04/12/24 05/21/25 Hi story capsule,extended release 24 hr apixaban 5 mg tablet (Eliquis) 5 mg PO BID #180 TABLETS 12/29/24 05/21/25 Rx latanoprost 0.005 % eye drops 1 drp ophthalmic (eye) QDAY 05/21/25 History spironolactone 25 mg tablet 25 mg PO QDAY #90 tabs 04/10/25 Rx vit C 250 mg-vit E 90 mg-zinc 40 1 tab PO BID 04/10/25 05/21/25 His tory mg-copper 1 es-yvkicp-xdkhqf capsule (PreserVision AREDS-2) amiodarone 200 mg tablet 200 mg PO QDAY #30 tabs 04/13/25 1 Rx buspirone 15 mg tablet 15 mg PO BID 04/20/25 05/21/25 His tory cholecalciferol (vitamin D3) 50 2,000 unit PO QDAY 04/20/25 History mcg (2,000 unit) tablet metoprolol succinate 25 mg 25 mg PO BID #60 tabs 04/24/25 Rx tablet,extended release 24 hr furosemide 20 mg tablet (Lasix) 60 mg PO DAILY 05/21/25 History Ejection fraction %: 50 Have you fallen in the past year?: No Nurse's Note: Pt has been very SOB and has edema. She is wearing compression stockings. She is taking her Lasix tid, and spironolactone, but it doesn't seem to get all fluid off. Pt will have her son's on the phone with her for the appt. One is in [place] and one is in [place]. Pt has been having an upset stomach. She tried eating a small peanut butter sandwich with meds and it is helping a little bit. Pt has been sleeping in a chair for the last week due to SOB. Pt presents with a list of BP readings. [facility] Medical History (Updated 05/21/25 @ 14:16 by NKECHI Duffy) HTN (hypertension), benign Paroxysmal atrial fibrillation Bradycardia Anxiety and depression Smoker Sleep apnea HTN (hypertension) Afib Surgical History History of tonsillectomy History of carpal tunnel release Family History Mother Hypertension Grandfather Hypertension Grandmother Hypertension Father Cancer Social History household members: spouse Smoking Status: Form (more content not included)... Normal [facility] Chloride assayOrdered By: Praveen Gann on 05-21-2025 Chloride [Moles/Vol] 103 mmol/L Normal 98-108 [facility] Comment on above: Performed By: #### L 501.4021 #### [facility] Laboratory [address] [place], [address] Glomerular filtration rate ( GFR) estimation/1.73 sq m using serum, plasma, or whole bOrdered By: Elida Gann on 05-21-2025 GFR/1.73 sq M.predicted among non-blacks MDRD (S/P/Bld) [Vol rate/Area] 41 mL/min/{1.73_m2} Low >60 [facility] Comment on above: mL/min/1.73m2 CKD-EP I Creatinine Equation (2020) Result Comment: mL/m in/1.73m2 CKD-EPI Creatinine Equation (2020) Performed By: #### L 501.4021 #### [facility] [address] [place], [place], [id number] Natriuretic peptide.B prohor ganesh N-Terminal [Mass/volume] in Serum or PlasmaOrdered By: Elida Gann on 05-21-2025 Natriuretic peptide.B prohormone N-Terminal [Mass/Vol] 75966 pg/mL High <1800 [facility] Comment on above: Heart Failure Unlike ly: < 300 pg/mLHeart Failure Likely< 50 Years: > 450 pg/mL50-75 Years: > 900 pg/mL>75 Years: > 1800 pg/mL Potassium measurement (mass/ volume)Ordered By: Elida Gann on 05-21-2025 Potassium (Unsp spec) [Mass/Vol] 4.1 mmol/L 3.3-5.1 [facility] Pro- Brain NATRIURETIC PEPTI Alec 05-21-2025 Natriuretic peptide B (Bld) [Mass/Vol] 72185 pg/mL High <=1800 [facility] Comment on above: Result Comment: Hear t Failure Unlikely: < 300 pg/mL Heart Failure Likely < 50 Years: > 450 pg/mL 50-75 Years: > 900 pg/mL >75 Years: > 1800 pg/mL Performed By: #### L 501.4021 #### [facility] [address] [place], [address] Serum creatinine measurement (mass/volume)Ordered By: Elida Gann on 05-21-2025 Creatinine [Mass/Vol] 1.25 mg/dL High 0.70-1.20 [facility] Comment on above: Performed By: #### L 501.4021 #### [facility] [address] [place], [address] Serum glucose measurement (m ass/volume)Ordered By: Elida Gann on 05-21-2025 Glucose [Mass/Vol] 224 mg/dL High 70-99 [facility] Comment on above: Performed By: #### L 501.4021 #### [facility] [address] [place], [address] Serum or plasma calcium meche urement (mass/volume)Ordered By: Elida Gann on 05-21-2025 Calcium [Mass/Vol] 9.2 mg/dL Normal 7.6-11.0 [facility] Comment on above: Performed By: #### L 501.4021 #### [facility] [address] [place], [address] Serum or plasma urea nitroge n measurement (mass/volume)Ordered By: Elida Gann on 05-21-2025 Urea nitrogen [Mass/Vol] 32 mg/dL High 4-19 [facility] Comment on above: Performed By: #### L 501.4021 #### [facility] [address] [place], [address] Sodium levelOrdered By: Nahed Gann on 05-21-2025 Sodium [Moles/Vol] 139 mmol/L Normal 133-145 [facility] Comment on above: Performed By: #### L 501.4021 #### [facility] [place], [address] CNOVon 05-19-2025 CNOV Office Visit (FAMPWS ) CHERYL ABARCA ([id number]) 1935 F Date Time Provider Department 05/19/25 1:00 PM [facility] During your visit today, we recorded the following information about you: Pulse Respiration Blood pressure Weight 96/minute 16/minute 120/78 71.2 kg Carl Rendon MD 05/19/2025 1:59 PM Signed Chief Complaint Patient presents with: Hospital Follow Up HPI Cheryl Abarca is a 89 year old female who presents here today for a Hospital follow up. Patient seen at [facility] ED on 05/09/25 [facility] ED visit: History of Present Illness Chief Complaint: General Illness Narrative: Chief complaint and HPI: 89-year-old female with past medical history of atrial fibrillation with RVR on Eliquis, HTN, sleep apnea presents for evaluation of dyspnea and dry heaving. Patient states for the past couple weeks she has been having episodic dyspnea with activity and orthopnea. States she gets these episodes of dry heaving as well. She states she was seated recently seen in our emergency department for same symptom 05/02. I reviewed the note at that time in which she was in A- fib with RVR. She was ultimately discharged home with cardiology follow-up. Patient states she was post have a follow-up appointment with cardiology yesterday however it was canceled. States this morning shortly after waking up she had a dry heaving episode that led to dyspnea which is why she presents. She denies any fever, chills, chest pain, abdominal pain D-DIMER QUANT 0.30 FEU/ug/m Imaging: RAD/Chest PA and Lateral IMPRESSION: There is mild cardiomegaly with mild central vascular congestion. Atrial fibrillation with rapid ventricular response Left axis deviation Left bundle branch block Abnormal ECG Confirmed by YURI TA MD ([id number]), editor department PATRICIA CARPENTER ([id number]) on 05/10/2025 10:00:00 AM Referred By: Confirmed By: YURI TA MD Cheryl Abarca is an 89-year-old female with a history of atrial fibrillation, presenting with nocturnal dyspnea, fatigue, and evening nausea and gagging. Cheryl reports persistent nocturnal dyspnea, requiring her to sit up to alleviate symptoms. She wakes up approximately three times per night due to dyspnea, which can last for an extended period, making it difficult to return to sleep. She goes to bed between 2100 and 2200 and wakes up around 0730. She denies nocturia, chest pain, or chest pressure. She also experiences dyspnea during the day, particularly when walking, and reports increased fatigue. She has a sleep study scheduled for next week. She has a CO2 monitor in her home, and the levels are reported as normal. Cheryl also experiences evening nausea and gagging, which she attributes to mucus drainage. She denies dysphagia or issues with liquids causing gagging. She has found that eating a peanut butter and bread sandwich with her evening medications has alleviated the nausea. She drinks evaristo sulma and has not taken Pepto-Bismol due to concerns about interactions with Eliquis 5 mg. She denies emesis. Cheryl reports feeling anxious during episodes of dyspnea but is unsure if this is related to her nausea and gagging. She is currently taking buspirone 7.5 mg, two tablets twice a day, and Effexor. She denies increasing the dosage of Effexor. Cheryl has been diagnosed with atrial fibrillation and was previously on amiodarone, which was discontinued due to bradycardia. She is currently on Eliquis 5 mg. She denies having a stress test ordered. She is seeing [place] [facility] and a recent echo showed mild global hypokensis of the left ventricle with an EF of 40% and mildly dilated left ajnd right atrai. Her echo in 12/2023 had an EF of 50% Cheryl has been engaging in light exercise at the [employer] center, using the [employer] machine at level 1 for 15 minutes. She denies experiencing significant dyspnea, chest heaviness, or nausea during exercise. Past medical history, appointments, medications, allergies reviewed. [...] Diverticulitis of colon (without mention of hemorrhage)(562.11) Elevated blood sugar 05/11/2025 Essential hypertension, benign 01/06/2008 LIZZY (generalized anxiety disorder) 02/01/2024 [facility] for counseling. Glaucoma suspect of (more content not included)... Normal [facility] Echo Completeon 05-18-2025 Echo Complete [facility] [address] [place] [address] Echo Complete 05/18/25 1410 MR#: [id number] Acct: [id number] Name: CHERYL ABARCA Rep #: [id number] : 1935 89 From: Yuri Ta MD Attending Dr: NKECHI Duffy Status: REG CL I Ordering Dr: Dontrell Hernandez Date: 05/18/25 Location: [facility] Sex: F C Admitted: Reason For Study Reason For Study: SHORTNESS OF BREATH Procedure This was a 2D Doppler, Color Flow transthoracic echocardiogram. Exam performed in department. Left Ventricle Normal left ventricle. The left ventricular ejection fraction is 40 %. There is mild global hypokinesis of the left ventricle. Right Ventricle Normal RV size. Normal systolic function. Atria The left atrium is mildly enlarged. The right atrium is mildly enlarged. Mitral Valve Normal mitral valve. Mild (1+) eccentric mitral valve insufficiency. Tricuspid Valve Normal tricuspid valve. Mild (1+) tricuspid valve insufficiency. Pulmonary artery systolic pressure is 38 mmHg. Aortic Valve Trisinus/trileaflet aortic valve. Pulmonic Valve Normal pulmonic valve. Great Vessels Normal aortic root. The pulmonary artery is normal size. Inferior vena cava collapse with respiration. Pericardium/Pleural No pericardial effusion. MMode/2D Measurements Calculations LVIDd: 5.5 cm IVSd: 1.0 cm Ao root diam: 3.5 cm LVIDs: 4.2 cm LVPWd: 1.0 cm FS: 22.9 % LAV(MOD-bp): 70.0 ml LVAd ap4: 27.9 cm2 LVAd ap2: 31.4 cm2 LAV(MOD-bp) Indexed: 40.4 ml/m2 LVLd ap4: 7.5 cm LVLd ap2: 8.4 cm LAV(MOD-sp2): 66.1 ml EDV(MOD-sp4): 85.2 ml EDV(MOD-sp2): 99.8 ml LAV(MOD-sp4): 69.5 ml EDV(sp4-el): 88.5 ml EDV(sp2-el): 100.3 ml LVAs ap4: 20.5 cm2 LVAs ap2: 22.8 cm2 LVLs ap4: 6.5 cm LVLs ap2: 7.2 cm ESV(MOD-sp4): 53.8 ml ESV(MOD-sp2): 61.7 ml ESV(sp4-el): 55.0 ml ESV(sp2-el): 61.1 ml EF(MOD-sp4): 36.9 % EF(MOD-sp2): 38.2 % EF(sp4-el): 37.9 % SV(MOD-sp4): 31.4 ml SV(MOD-sp2): 38.1 ml SV(sp4-el): 33.5 ml SI(MOD-sp4): 18.2 ml/m2 SI(MOD-sp2): 22.0 ml/m2 LA A4 area: 22.0 cm2 LA dimension(2D): 3.9 cm RA A4 area: 19.9 cm2 TAPSE: 1.2 cm Doppler Measurements Calculations MV E max hans: 100.9 cm/sec Lat Peak E' Hans: 3.4 cm/sec Med Peak E' Hans: 4.3 cm/sec E/E' lat: 30.1 E/E' med: 23.7 Ao V2 max: 102.7 cm/sec LV V1 max: 81.0 cm/sec MR max hans: 385.7 cm/sec Ao max P.3 mmHg LV V1 max P.7 mmHg MR max P.5 mmHg Ao V2 mean: 74.3 cm/sec LV V1 mean P.5 mmHg MR mean hans: 317.1 cm/sec Ao mean P.5 mmHg LV V1 mean: 56.8 cm/sec MR mean P.0 mmHg Ao V2 VTI: 16.0 cm LV V1 VTI: 10.9 cm MR VTI: 118.2 cm AV (velocity ratio): 0.68 PA V2 max: 68.6 cm/sec TR max hans: 283.4 cm/sec TR max P.4 mmHg ECHO/Echo Complete Interpretation Summary Normal left ventricle. There is mild global hypokinesis of the left ventricle. The left ventricular ejection fraction is 40 %. The left atrium is mildly enlarged. The right atrium is mildly enlarged. Ordering Physician: Dontrell Hernandez Referring Physician: Carl Rendon Performed By: Riya Youssef RDCS, RVT 05/18/25 1624 Date Yuri Ta MD CC: Dr. Carl Rendon MD; NKECHI Duffy Date Dictated: 05/18/25 1410 Date Transcribed: 05/18/25 1624 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Signed Normal [facility] HbA1c (Bld)on 05-11-2025 Average glucose Estimated from glycated hemoglobin (Bld) [Mass/Vol] 111 mg/dL Normal [facility] Comment on above: Order Comment: Speci men Type: BLOOD SPECIMENOrdering Facility: [facility] Address: [address] [place] [address] Result Comment: eAG: (Estimated average glucose) is a calculated value from HgbA1c and is parts representative of the average blood glucose level in the last 2-3 month period. Performed By: #### 5 5454-3 ####[facility] LABCLIA [id number] [place] [address] [place] HbA1c (Bld) [Mass fraction] 5.5 % Normal 4.3-5.6 [facility] Comment on above: Order Comment: Brandyn mcrae Type: BLOOD SPECIMENOrdering Facility: [facility] Address: [address] [place] [address] Result Comment: Amer [place] Diabetes Association guidelines indicate that patients with HgbA1c in the range 5.7-6.4% are at increased risk for development of diabetes, and intervention by lifestyle modification may be beneficial. HgbA1c greater or equal to 6.5% is considered diagnostic of diabetes. Performed By: #### 5 5454-3 ####[facility] LABCLIA [id number] [address] [place] Cardiology Visit Reporton Cardiology Visit Report [facility] [facility]. [address] [place], [place] [id number] OFFICE VISIT Date of Service: 05/10/25 MR#: [id number] Acct: [id number] Name: CHERYL ABARCA Rep #: [id number] : 1935 Provider: SATHISH funes Age/Sex: 89/F [place] [facility]: Signed HPI HPI History of Present Illness Details: Cheryl Abarca is an 89-year-old female who presents to office today for a hospital follow-up visit. She presented to [facility] ED 05/02/25 and again on 05/09/2025 for dyspnea and orthopnea and was found to be in A.fib with RVR both times. 05/02 BNP 6615, 05/09 BNP 11,842. She stated that she had about 5 days of feeling "good" after initial visit before becoming symptomatic again prompting her to return to the ED. On 05/09/2025, chest xray showed mild cardiomegaly and vascular congestion without large effusion, pneumothorax, pneumonia that was slightly worse than previous chest x-ray. Patient had a similar episode in December 2023 where she presented for similar symptoms and was found to be in A.fib with RVR (HRs 120-140). A. fib was diagnosed at this time and metoprolol was increased. At that time echocardiogram demonstrated ejection fraction of 50% and stage III diastolic dysfunction. Left and right atrium were noted to be normal size, PASP was 38 mmHg. From a cardiac standpoint, the patient is doing well. She denies any palpitations, chest pain, pressure or heaviness. She does acknowledge SOB with exertion, and orthopnea. She denies PND. She does not have bleeding issues; no blood in urine, stool, or nosebleeds. She does acknowledge fatigue. She denies myalgias, or claudication. She does not have edema, or sudden weight gain. She does acknowledge occasional dizziness-with standing up too quickly. She denies lightheadedness, syncopal or near syncopal episodes, and headaches. Intake Vital Signs 05/02/25 10:28 05/10/25 10:51 05/10/25 11:46 Height 5 ft 2 in 5 ft 2 in Weight: 153 lb BMI 28.0 BP 107/70 Blood Pressure Location Lt brachial Position Sitting Respiration 18 Pulse 112 H 90 Pulse Source Monitor Monitor Intake Visit Reasons: S/P [facility] 05/02 Anesthetic Assistant Required: No Is patient in pain?: No Allergies sulfamethoxazole (From Bactrim) Allergy (Intermediate, Verified 05/10/25 11:42) Rash trimethoprim (From Bactrim) Allergy (Intermediate, Verified 05/10/25 11:42) Rash Sulfa (Sulfonamide Antibiotics) Allergy (Mild, Verified 05/10/25 11:42) Rash Medications ???Medication ???Instructions ???Recorded ???Confirmed ???Type losartan 100 mg tablet 100 mg PO DAILY blood pressure 11/1605/10/25 History simvastatin 20 mg tablet 20 mg PO QHS cholesterol 12/28/23 05/10/25 History calcium carbonate (Tums) 300 mg PO BID 04/12/24 05/10/25 Hi story venlafaxine 150 mg 150 mg PO QHS 04/12/24 05/10/25 Hi story capsule,extended release 24 hr apixaban 5 mg tablet (Eliquis) 5 mg PO BID #180 TABLETS 12/29/24 05/10/25 Rx latanoprost 0.005 % eye drops 1 drp ophthalmic (eye) QDAY 05/10/25 History spironolactone 25 mg tablet 25 mg PO QDAY #90 tabs 04/10/25 Rx vit C 250 mg-vit E 90 mg-zinc 40 1 tab PO BID 04/10/25 05/02/25 His tory mg-copper 1 of-xhxorg-suedgp capsule (PreserVision AREDS-2) amiodarone 200 mg tablet 200 mg PO QDAY #30 tabs 04/13/25 1 Rx buspirone 15 mg tablet 15 mg PO BID 04/20/25 05/10/25 His tory cholecalciferol (vitamin D3) 50 2,000 unit PO QDAY 04/20/25 History mcg (2,000 unit) tablet metoprolol succinate 25 mg 25 mg PO BID #60 tabs 04/24/25 Rx tablet,extended release 24 hr furosemide 20 mg tablet (Lasix) 60 mg (3 x 20 mg) PO DAILY 30 days 05/09/25 05/10/25 Rx #90 tabs Ejection fraction %: 50 Have you fallen in the past year?: No PFSH Medical History HTN (hypertension), benign Paroxysmal atrial fibrillation Bradycardia Anxiety and depression Smoker Sleep apnea HTN (hypertension) Afib Surgical History History of tonsillectomy History of carpal tunnel release Family History Mother Hypertension Grandfather Hypertension Grandmother Hypertension Father Cancer Social History household members: spouse Smoking Status: Former smoker how long ago did patient quit smokin12/30/2023 alcohol intake: current alcohol intake frequency: holidays/special occasions only substance use type: does not use caffeine: No ROS Const Const: Positive for fatigue; Negative for weakness, headache(s) or frequent falls Eyes Eyes: Negative for blurry vision ENT E (more content not included)... Normal [facility] 12 Lead EKGon 05-09-2025 12 Lead EKG [facility] Cardiovascular Services [address] [place] [address] 12 Lead EKG 05/09/25 0831 MR#: [id number] Acct: [id number] Name: CHERYL ABARCA Rep #: [id number] : 1935 89 From: Yuri Ta MD Attending Dr: Status: DEP ER Ordering Dr: Isidoro Medrano DO Date: 5 Location: ED Sex: F C Admitted: Test Reason : Blood Pressure : */* mmHG Vent. Rate : 107 BPM Atrial Rate : * BPM P-R Int : * ms QRS Dur : 142 ms QT Int : 402 ms P-R-T Axes : * -36 132 degrees QTcB Int : 536 ms Atrial fibrillation with rapid ventricular response Left axis deviation Left bundle branch block Abnormal ECG Confirmed by YURI TA MD ([id number]), editor department PATRICIA CARPENTER ([id number]) on 05/10/2025 10:00:00 AM Referred By: Confirmed By: YURI TA MD 05/10/25 1000 Date Yuri Ta MD CC: Dr. Isidoro Medrano DO; Dr. Carl Rendon MD Signed Normal [facility] Absolute lymphocyte countOrd ered By: Isidoro Medrano on 05-09-2025 Lymphocytes Auto (Unsp spec) [#/Vol] 1.07 10*3/uL 0.83-4.51 [facility] Absolute neutrophil countOrd ered By: Isidoro Medrano on 05-09-2025 Neutrophils (Bld) [#/Vol] 11.3 10*3/uL High 2.0-7.7 [facility] Anion gap in Serum or Plasma Ordered By: Isidorodeion Medrano on 05-09-2025 Anion gap [Moles/Vol] 17 mmol/L High 12-07 [facility] Automated lymphocyte count a s percentage of total leukocytesOrdered By: Isidoro Medrano on 05-09-2025 Lymphocytes/100 WBC Auto (Unsp spec) 8.3 % Low 19-41 [facility] BUN/creatinine ratioOrdered By: Isidoro Medrano on 05-09-2025 Urea nitrogen/Creatinine [Mass ratio] 23.8 mg/mg High 05-14 [facility] Basic Metabolic Profile (BMP )on 05-09-2025 BUN/CRE 23.8 RATIO High [facility] Comment on above: Performed By: #### L 100.0100, L500.2500, L300.8000, L503.7505 ####[facility] [address] [place], [address] Calcium [Mass/Vol] 9.7 mg/dL Normal 7.6-11.0 [facility] Comment on above: Performed By: #### L 100.0100, L500.2500, L300.8000, L503.7505 ####[facility] [address] [place], [address] Chloride [Moles/Vol] 100 mmol/L Normal 98-108 [facility] Comment on above: Performed By: #### L 100.0100, L500.2500, L300.8000, L503.7505 ####[facility] [address] [place], [address] CO2 [Moles/Vol] 21.8 mmol/L Normal 21.0-32.0 [facility] Comment on above: Performed By: #### L 100.0100, L500.2500, L300.8000, L503.7505 ####[facility] [address] [place], [address] Creatinine [Mass/Vol] 1.37 mg/dL High 0.70-1.20 [facility] Comment on above: Performed By: #### L 100.0100, L500.2500, L300.8000, L503.7505 ####[facility] [address] [place], [address] GAP 17 High 5-15 [facility] Comment on above: Performed By: #### L 100.0100, L500.2500, L300.8000, L503.7505 ####[facility] [address] [place], [address] GFR/1.73 sq M.predicted among non-blacks MDRD (S/P/Bld) [Vol rate/Area] 37 mL/min/{1.73_m2} Low >60 [facility] Comment on above: Result Comment: mL/m in/1.73m2 CKD-EPI Creatinine Equation (2020) Performed By: #### L 100.0100, L500.2500, L300.8000, L503.7505 ####[facility] [address] [place], [address] Glucose [Mass/Vol] 240 mg/dL High 70-99 [facility] Comment on above: Performed By: #### L 100.0100, L500.2500, L300.8000, L503.7505 ####[facility] [address] [place], [address] Potassium [Moles/Vol] 4.0 mmol/L Normal 3.3-5.1 [facility] Comment on above: Performed By: #### L 100.0100, L500.2500, L300.8000, L503.7505 ####[facility] [address] [place], [address] Sodium [Moles/Vol] 139 mmol/L Normal 133-145 [facility] Comment on above: Performed By: #### L 100.0100, L500.2500, L300.8000, L503.7505 ####[facility] [address] [place], [address] Urea nitrogen [Mass/Vol] 33 mg/dL High 4-19 [facility] Comment on above: Performed By: #### L 100.0100, L500.2500, L300.8000, L503.7505 ####[facility] [address] [place], [address] Basophil percentageOrdered B y: Isidoro Medrano on 05-09-2025 Basophils/100 WBC (Bld) 0.5 % 0-1 [facility] Bilirubin Test strip Ql (U)O rdered By: Isidoro Medrano on 05-09-2025 Bilirubin Ql (U) Negative Negative [facility] CBC W/Diff, Automatedon 04-25 Absolute Lymph 1.07 X10 3/uL Normal 0.83-4.51 [facility] Comment on above: Performed By: #### L 100.0100, L500.2500, L300.8000, L503.7505 #### [facility] Laboratory [address] [place], [address] Absolute Neut 11.3 X10 3/uL High 2.0-7.7 [facility] Comment on above: Performed By: #### L 100.0100, L500.2500, L300.8000, L503.7505 #### [facility] Laboratory [address] [place], [address] Basophils/100 WBC (Bld) 0.5 % Normal 0-1 [facility] Comment on above: Performed By: #### L 100.0100, L500.2500, L300.8000, L503.7505 #### [facility] Laboratory [address] [place], [address] Eosinophils/100 WBC (Bld) 0.5 % Normal 0-5 [facility] Comment on above: Performed By: #### L 100.0100, L500.2500, L300.8000, L503.7505 #### [facility] Laboratory [address] [place], [address] Erythrocyte distribution width (RBC) [Ratio] 14.9 % High 11.6-14.6 [facility] Comment on above: Performed By: #### L 100.0100, L500.2500, L300.8000, L503.7505 #### [facility] Laboratory [address] [place], [address] Hematocrit (Bld) [Volume fraction] 41.3 % Normal 37-47 [facility] Comment on above: Performed By: #### L 100.0100, L500.2500, L300.8000, L503.7505 #### [facility] [address] [place], [address] Hemoglobin (Bld) [Mass/Vol] 13.7 g/dL Normal 12.0-15.0 [facility] Comment on above: Performed By: #### L 100.0100, L500.2500, L300.8000, L503.7505 #### [facility] Laboratory [address] [place], [address] IG% 0.500 Normal 0.0-0.9 [facility] Comment on above: Result Comment: IG% - Immature Granulocytes (promyelocytes, myelocytes and metamyelocytes) > 1% indicates that a LEFT SHIFT is Present. Performed By: #### L 100.0100, L500.2500, L300.8000, L503.7505 #### [facility] Laboratory [address] [place], [address] Lymphocytes/100 WBC (Bld) 8.3 % Low 19-41 [facility] Comment on above: Performed By: #### L 100.0100, L500.2500, L300.8000, L503.7505 #### [facility] Laboratory [address] [place], [address] MCH (RBC) [Entitic mass] 31.4 pg Normal 27.0-32.0 [facility] Comment on above: Performed By: #### L 100.0100, L500.2500, L300.8000, L503.7505 #### [facility] Laboratory [address] [place], [address] MCHC (RBC) [Mass/Vol] 33.2 g/dL Normal 32-36 [facility] Comment on above: Performed By: #### L 100.0100, L500.2500, L300.8000, L503.7505 #### [facility] Laboratory [address] [place], [address] MCV (RBC) [Entitic vol] 94.7 fL Normal 81-99 [facility] Comment on above: Performed By: #### L 100.0100, L500.2500, L300.8000, L503.7505 #### [facility] Laboratory [address] [place], [address] Monocytes/100 WBC (Bld) 2.8 % Normal 0-10 [facility] Comment on above: Performed By: #### L 100.0100, L500.2500, L300.8000, L503.7505 #### [facility] Laboratory [address] [place], [address] Neutrophils/100 WBC (Bld) 87.4 % High 47-70 [facility] Comment on above: Performed By: #### L 100.0100, L500.2500, L300.8000, L503.7505 #### [facility] Laboratory [address], [address] Nucleated RBC (Bld) [#/Vol] 0 10*3/uL Normal 0-5 [facility] Comment on above: Performed By: #### L 100.0100, L500.2500, L300.8000, L503.7505 #### [facility] Laboratory [address] [place], [address] Platelet mean volume (Bld) [Entitic vol] 9.9 fL Normal 6.2-12.0 [facility] Comment on above: Performed By: #### L 100.0100, L500.2500, L300.8000, L503.7505 #### [facility] Laboratory [address] [place], [address] Platelets (Bld) [#/Vol] 336 10*3/uL Normal 150-450 [facility] Comment on above: Performed By: #### L 100.0100, L500.2500, L300.8000, L503.7505 #### [facility] Laboratory [address] [place], [address] RBC (Bld) [#/Vol] 4.36 10*6/uL Normal 4.2-5.[address] [facility] Comment on above: Performed By: #### L 100.0100, L500.2500, L300.8000, L503.7505 #### [facility] Laboratory [address] [place], [address] RDW SD 52.1 fl High 35.1-43.9 [facility] Comment on above: Performed By: #### L 100.0100, L500.2500, L300.8000, L503.7505 #### [facility] Laboratory [address] [place], [address] WBC (Bld) [#/Vol] 13.0 10*3/uL High 4.4-11.[address] [facility] Comment on above: Performed By: #### L 100.0100, L500.2500, L300.8000, L503.7505 #### [facility] Laboratory [address] [place], [address] Carbon dioxide, total [Moles /volume] in Central venous bloodOrdered By: Isidoro Medrano on 05-09-2025 CO2 [Moles/Vol] 21.8 mmol/L 21.0-32.0 [facility] Chest PA and Lateralon 05-09 Chest PA and Lateral [facility] Imaging Services [address] [place] [address] Chest PA and Lateral MR#: [id number] Acct: [id number] Name: CHERYL ABARCA Rep #: [id number] : 1935 F 89 From: Kobe Hernandez MD PCP: Dr. Carl Rendon MD Status: [facility] ER Study: Chest PA and Lateral Date of Exam: 05/09/25 Exam# [id number] Ordering Dr: Isidoro Medrano DO PROCEDURE: CHEST PA AND LATERAL 05/09/2025 REASON FOR EXAM: SHORTNESS OF BREATH TECHNIQUE: Procedure Code: RADCXR Modality: DX Procedure: CHEST PA AND LATERAL COMPARISON: May 02, 2025 FINDINGS: There is mild cardiomegaly with mild central vascular congestion. There is no pneumothorax or effusion. There is no acute bony abnormality. Aortic calcifications are visible. RAD/Chest PA and Lateral IMPRESSION: There is mild cardiomegaly with mild central vascular congestion. Reading Location: [facility] CC: Dr. Isidoro Medrano DO; Dr. Carl Rendon MD 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Signed Normal [facility] Chloride assayOrdered By: Jared Medrano on 05-09-2025 Chloride [Moles/Vol] 100 mmol/L 98-108 [facility] D-Dimer Quantitative (DVT/PE )on 05-09-2025 D-DIMER QUANT 0.30 FEU/ug/m Normal 0.27-0.49 [facility] Comment on above: Result Comment: NORM AL D-Dimer level (<0.50) indicates no DVT or PE. Performed By: #### L 100.0100, L500.2500, L300.8000, L503.7505 ####[facility] [address] [facility], [address] Electrocardiogram reportOrde red By: Yuri Ta on 05-09-2025 EKG study [facility] Cardiovascular Services [address] [place] [address] 12 Lead EKG 05/09/25 0831 MR#: [id number] Acct: [id number] Name: CHERYL ABARCA Rep #:[id number] : 1935 89 From: Yuri Ta MD Attending Dr: Status: DEP E R Ordering Dr: Isidoro Medrano ate: 05/09/25 Location: ED Sex: F C Admitted: Test Reason : Blood Pressure : */* mmHG Vent. Rate : 107 BPM Atrial Rate : * BPM P-R Int : * ms QRS Dur : 142 ms QT Int : 402 ms P-R-T Axes : * -36 132 degrees QTcB Int : 536 ms Atrial fibrillation with rapid ventricular response Left axis deviation Left bundle branch block Abnormal ECG Confirmed by YURI TA MD ([id number]), editor department PATRICIA CARPENTER ([id number]) on 05/10/2025 10:00:00 AM Referred By: Confirmed By: YURI TA MD 05/10/25 1000 Date _ Yuri Ta MD CC: Dr. Isidoro Medrano DO; Dr. Carl Rendon MD ~ Signed [facility] Work Phone: Emergency Department Summary on 05-09-2025 Emergency Department Summary [facility] Medical Records Department [address] [place] [address] Emergency Department Summary 05/09/25 MR#: [id number] Acct: [id number] Name: CHERYL ABARCA Rep #: [id number] : 1935 89 From: Isidoro Medrano DO PCP: Dr. Carl Rendon MD Status:REG ER Location: ED HPI History of Present Illness Chief Complaint: General Illness Narrative Narrative: Chief complaint and HPI: 89-year-old female with past medical history of atrial fibrillation with RVR on Eliquis, HTN, sleep apnea presents for evaluation of dyspnea and dry heaving. Patient states for the past couple weeks she has been having episodic dyspnea with activity and orthopnea. States she gets these episodes of dry heaving as well. She states she was seated recently seen in our emergency department for same symptom 05/02. I reviewed the note at that time in which she was in A- fib with RVR. She was ultimately discharged home with cardiology follow-up. Patient states she was post have a follow-up appointment with cardiology yesterday however it was canceled. States this morning shortly after waking up she had a dry heaving episode that led to dyspnea which is why she presents. She denies any fever, chills, chest pain, abdominal pain. Review of systems: See HPI Medications: As listed on the chart Allergies: As listed on the chart PFSH: Per chart Vital signs: As listed on the chart. Reviewed. Physical exam: Gen: A O x3, NAD Head: Normocephalic, atraumatic Eyes: No sclera icterus, conjunctiva clear ENT: Moist mucous membranes Neck: Trachea midline CV: Irregularly irregular rhythm, intermittently tachycardic, no murmurs, no peripheral edema Resp: Lungs CTA BL, no w/r/c GI: Abd soft, non-distended, non-tender, no r/r/g Musc: Full ROM, no deformity Skin: Warm, dry Neuro: Alert, oriented, grossly intact, sensation intact Psych: Cooperative, appropriate mood and [facility] History HTN (hypertension), benign Paroxysmal atrial fibrillation Bradycardia Anxiety and depression Smoker Sleep apnea HTN (hypertension) Afib Home Medications ???Medication ???Instructions ???Recorded ???Last Taken ???Type losartan 100 mg tablet 100 mg PO DAILY blood pressure 11/1605/01/25 History simvastatin 20 mg tablet 20 mg PO QHS cholesterol 12/28/23 05/01/25 History calcium carbonate (Tums) 300 mg PO BID 04/12/24 Unknown His tory venlafaxine 150 mg 150 mg PO QHS 04/12/24 05/01/25 Hi story capsule,extended release 24 hr apixaban 5 mg tablet (Eliquis) 5 mg PO BID #180 TABLETS 12/29/24 05/01/25 Rx latanoprost 0.005 % eye drops 1 drp ophthalmic (eye) QDAY Unknown History spironolactone 25 mg tablet 25 mg PO QDAY #90 tabs 04/10/25 Rx vit C 250 mg-vit E 90 mg-zinc 40 1 tab PO BID 04/10/25 05/01/25 His tory mg-copper 1 [id number] capsule (PreserVision AREDS-2) amiodarone 200 mg tablet 200 mg PO QDAY #30 tabs 04/13/25 1 Rx buspirone 15 mg tablet 15 mg PO BID 04/20/25 05/01/25 His tory cholecalciferol (vitamin D3) 50 2,000 unit PO QDAY 04/20/25 History mcg (2,000 unit) tablet metoprolol succinate 25 mg 25 mg PO BID #60 tabs 04/24/2502/16 Rx tablet,extended release 24 hr torsemide 20 mg tablet 20 mg PO QAM #30 tabs 04/24/2502/16 Rx benzonatate 200 mg capsule 200 mg PO TID PRN PRN cough Unknown History cefadroxil 500 mg capsule 500 mg PO BID 05/02/25 05/01/25 Hi story Allergy/AdvReac Type Severity Reaction Status Date / Time sulfamethoxazole (From Allergy Intermediate Rash Verified 05/02/25 10:30 Bactrim) trimethoprim (From Bactrim) Allergy Intermediate Rash Verified 05/02/25 10:30 Sulfa (Sulfonamide Allergy Mild Rash Verified 05/02/25 10:30 Antibiotics) Family History Mother Hypertension Grandfather Hypertension Grandmother Hypertension Father Cancer Surgical History History of tonsillectomy History of carpal tunnel release Social History household members: spouse Smoking Status: Former smoker how long ago did patient quit smokin12/30/2023 alcohol intake: current alcohol intake frequency: holidays/special occasions only substance use type: does not use caffeine: No EXAM Physical Exam Const Vital Signs: 05/09/25 07:41 05/09/25 09:41 05/09/25 11:00 Temperature 96.6 F L Temperature Source Temporal Pulse Rate 93 95 92 Respiratory Rate 17 18 18 Blood Pressure 128/88 H 124/94 H 124/90 H Blood Pressure Mean 101 104 101 Pulse Ox 99 99 99 Oxygen Delivery Method Room Air (more content not included)... Normal [facility] Eosinophil percentageOrdered By: Isidoro Medrano on 05-09-2025 Eosinophils/100 WBC (Bld) 0.5 % 0-5 [facility] Erythrocyte distribution wid th ratioOrdered By: [place] Marcela on 05-09-2025 Erythrocyte distribution width (RBC) [Ratio] 14.9 % High 11.6-14.6 [facility] Erythrocyte distribution wid th standard deviationOrdered By: Isidoro Elkins on 05-09-2025 Erythrocyte distribution width (RBC) [Ratio] 52.1 fl High 35.1-43.9 [facility] Glomerular filtration rate ( GFR) estimation/1.73 sq m using serum, plasma, or whole bOrdered By: Isidoro Medrano on 05-09-2025 GFR/1.73 sq M.predicted among non-blacks MDRD (S/P/Bld) [Vol rate/Area] 37 mL/min/{1.73_m2} Low >60 [facility] Comment on above: mL/min/1.73m2 CKD-EP I Creatinine Equation (2020) Hematocrit Auto (Bld) [Volum e fraction]Ordered By: Isidoro Medrano on 05-09-2025 Hematocrit (Bld) [Volume fraction] 41.3 % 37-47 [facility] Hemoglobin A1con 05-09-2025 HbA1c (Bld) [Mass fraction] 6.0 % High <=5.6 [facility] Comment on above: Result Comment: Norm al < 5.7 % Prediabetic 5.7 - 6.4 % Diabetic >or= 6.5 % Please note range changes. Performed By: #### L [id number] #### [facility] Laboratory [facility] [address] [place], [place], [id number] Hemoglobin A1c percentageOrd ered By: Isidoro Medrano on 05-09-2025 HbA1c (Bld) [Mass fraction] 6.0 % High <5.7 [facility] Comment on above: Normal < 5.7 % Predi abetic 5.7 - 6.4 % Diabetic >or= 6.5 % Please note range changes. Hemoglobin measurementOrdere d By: Isidoro Medrano on 05-09-2025 Hemoglobin (Bld) [Mass/Vol] 13.7 g/dL 12.0-15.0 [facility] Hyaline casts LM.LPF (Urine sed) [#/Area]Ordered By: Isidorodeion Medrano on 05-09-2025 Hyaline casts (Urine sed) [#/Area] 0 /[LPF] 0-5 [facility] Immature granulocytes/100 WB C Auto (Bld)Ordered By: Isidorodeion Medrano on 05-09-2025 Immature granulocytes/100 WBC (Bld) 0.500 % 0.0-0.9 [facility] Comment on above: IG% - Immature Granu locytes (promyelocytes, myelocytes and metamyelocytes) > 1% indicates that a LEFT SHIFT is Present. Ketones Test strip Ql (U)Ord ered By: Isidoro Medrano on 05-09-2025 Ketones Ql (U) Negative Negative [facility] L501.4021on 05-09-2025 Trop T High Sen 23 ng/L High <=14 [facility] Comment on above: Performed By: #### L [id number] #### [facility] Laboratory [address] [place], [place], [address] MCV (mean corpuscular volume ) determinationOrdered By: Isidoro Medrano on 05-09-2025 MCV (RBC) [Entitic vol] 94.7 fL 81-99 [facility] Magnesiumon 05-09-2025 Magnesium [Mass/Vol] 2.5 mg/dL High 1.5-2.2 [facility] Comment on above: Performed By: #### L [id number] #### [facility] Laboratory [address] [place], [place], [id number] Magnesium measurement (mass/ volume)Ordered By: Isidoro Medrano on 05-09-2025 Magnesium (Unsp spec) [Mass/Vol] 2.5 mg/dL High 1.5-2.2 [facility] Mean corpuscular hemoglobin (MCH) determinationOrdered By: Isidoro Medrano on 05-09-2025 MCH (RBC) [Entitic mass] 31.4 pg 27.0-32.0 [facility] Mean corpuscular hemoglobin concentration (MCHC) determinationOrdered By: Isidoro Medrano on 05-09-2025 MCHC (RBC) [Mass/Vol] 33.2 g/dL 32-36 [facility] Mean platelet volume determi nationOrdered By: Isidoro Medrano on 05-09-2025 Platelet mean volume (Bld) [Entitic vol] 9.9 fL 6.2-12.0 [facility] Microscopic analysis of urin e for red blood cells (RBC)Ordered By: Isidoro Medrano on 05-09-2025 Microscopic analysis of urine for red blood cells (RBC) 0 SEEN /hpf 0-5 [facility] Monocyte percentageOrdered B y: Isidoro Medrano on 05-09-2025 Monocytes/100 WBC (Bld) 2.8 % 0-10 [facility] Mucus LM Ql (Urine sed)Order ed By: Isidoro Medrano on 05-09-2025 Mucus Ql (Urine sed) 0 SEEN /hpf [facility] Natriuretic peptide.B prohor ganesh N-Terminal [Mass/volume] in Serum or PlasmaOrdered By: Isidoro Medrano on 05-09-2025 Natriuretic peptide.B prohormone N-Terminal [Mass/Vol] 82460 pg/mL High <1800 [facility] Comment on above: Heart Failure Unlike ly: < 300 pg/mLHeart Failure Likely< 50 Years: > 450 pg/mL50-75 Years: > 900 pg/mL>75 Years: > 1800 pg/mL Neutrophil percentageOrdered By: Isidoro Medrano on 05-09-2025 Neutrophils/100 WBC (Bld) 87.4 % High 47-70 [facility] Nitrite Test strip Ql (U)Ord ered By: Isidoro Medrano on 05-09-2025 Nitrite Ql (U) Negative Negative [facility] No Panel InformationOrdered By: Isidoro Medrano on 05-09-2025 Blood Gas Sample Site Not entered [facility] Blood Gas Specimen Type JOE [facility] Oxygen Delivery Device Not entered [facility] Nucleated red blood cell per centageOrdered By: Isidoro Medrano on 05-09-2025 Nucleated RBC/100 WBC (Bld) [Ratio] 0 % 0-5 [facility] Platelet countOrdered By: Jared Medrano on 05-09-2025 Platelets (Bld) [#/Vol] 336 10*3/uL 150-450 [facility] Potassium measurement (mass/ volume)Ordered By: Isidoro Medrano on 05-09-2025 Potassium (Unsp spec) [Mass/Vol] 4.0 mmol/L 3.3-5.1 [facility] Pro- Brain NATRIURETIC PEPTI Alec 05-09-2025 Natriuretic peptide B (Bld) [Mass/Vol] 67567 pg/mL High <=1800 [facility] Comment on above: Result Comment: Hear t Failure Unlikely: < 300 pg/mL Heart Failure Likely < 50 Years: > 450 pg/mL 50-75 Years: > 900 pg/mL >75 Years: > 1800 pg/mL Performed By: #### L 100.0100, L500.2500, L300.8000, L503.7505 ####[facility] [address] [place], [address] Protein Test strip Ql (U)Ord ered By: Isidoro Medrano on 05-09-2025 Protein Ql (U) 100 mg/dl High Negative [facility] RBC Auto (Bld) [#/Vol]Ordere d By: Isidoro Medrano on 05-09-2025 RBC (Bld) [#/Vol] 4.36 10*6/uL 4.2-5.[address] [facility] Serum creatinine measurement (mass/volume)Ordered By: Isidoro Medrano on 05-09-2025 Creatinine [Mass/Vol] 1.37 mg/dL High 0.70-1.20 [facility] Serum glucose measurement (m ass/volume)Ordered By: Isidoro Medrano on 05-09-2025 Glucose [Mass/Vol] 240 mg/dL High 70-99 [facility] Serum or plasma calcium meche urement (mass/volume)Ordered By: Isidoro Elkins on 05-09-2025 Calcium [Mass/Vol] 9.7 mg/dL 7.6-11.0 [facility] Serum or plasma urea nitroge n measurement (mass/volume)Ordered By: Isidoro Medrano on 05-09-2025 Urea nitrogen [Mass/Vol] 33 mg/dL High 4-19 [facility] Sodium levelOrdered By: José Miguel Medrano on 05-09-2025 Sodium [Moles/Vol] 139 mmol/L 133-145 [facility] Squamous epithelial cells de tection in urine sediment by light microscopyOrdered By: Isidoro Medrano on 05-09-2025 Epithelial cells.squamous LM Ql (Urine sed) 0-5 SEEN /hpf 5-10 [facility] Troponin T HS 2 HRon 025 Trop T High Sen 24 ng/L High <=14 [facility] Comment on above: Performed By: #### L 501.4021 #### [facility] Laboratory [address] [place], [address] Troponin T.cardiac [Mass/vol ume] in Serum or Plasma by High sensitivity methodOrdered By: Isidoro Medrano on 05-09-2025 Troponin T.cardiac High sensitivity method [Mass/Vol] 24 ng/L High <14 [facility] Troponin T.cardiac High sensitivity method [Mass/Vol] 23 ng/L High <14 [facility] Comment on above: Delta: 21 on 5-1100 Urinalysis, Completeon 05-09 CAST,HYALINE 0-5 SEEN Normal 0-5 [facility] Comment on above: Order Comment: SHAYAN CTOR TO SPECIFY Performed By: #### L 499.0042 #### [facility] Laboratory [address] [place], [address] EPI,SQUAMOUS 0-5 SEEN Normal -10 [facility] Comment on above: Order Comment: SHAYAN CTOR TO SPECIFY Performed By: #### L [id number] #### [facility] Laboratory [address] [place], [address] WBC 0-5 SEEN Normal 0-5 [facility] Comment on above: Order Comment: SHAYAN CTOR TO SPECIFY Performed By: #### L [id number] #### [facility] Laboratory [address] [place], [address] BACTERIA 0 SEEN Normal None Seen [facility] Comment on above: Order Comment: SHAYAN CTOR TO SPECIFY Performed By: #### L [id number] #### [facility] Laboratory [address] [place], [address] Mucus Ql (Urine sed) 0 SEEN Normal [facility] Comment on above: Order Comment: COLLE CTOR TO SPECIFY Performed By: #### L [id number] #### [facility] Laboratory [address] [place], [place], [id number] RBC 0 SEEN Normal 0-5 [facility] Comment on above: Order Comment: SHAYAN CTOR TO SPECIFY Performed By: #### L [id number] #### [facility] Laboratory [address] [place], [place], [id number] Urine clarityOrdered By: Pepe Medrano on 05-09-2025 Clarity (U) Clear Clear [facility] Urine color determinationOrd ered By: Isidoro Medrano on 05-09-2025 Color (U) Yellow Yellow [facility] Urine glucose detectionOrder ed By: Isidoro Medrano on 05-09-2025 Glucose Ql (U) Normal mg/dl Normal [facility] Urine leukocyte esterase det ection by dipstickOrdered By: Isidoro Medrano on 05-09-2025 Leukocyte esterase Test strip Ql (U) 25 /ul High Negative [facility] Urine pHOrdered By: Isidoro Hull on 05-09-2025 pH (U) 6.0 [pH] 5.0 - 8.0 [facility] Urine sediment bacteria coun t by microscopy (number/high power field)Ordered By: Isidoro Medrano on 05-09-2025 Bacteria LM.HPF (Urine sed) [#/Area] 0 /[HPF] None Seen [facility] Urine specific gravity measu rementOrdered By: Isidoro Medrano on 05-09-2025 Specific gravity (U) [Rel density] 1.020 1.002-1.030 [facility] Urine urobilinogen measureme ntOrdered By: Isidoro Medrano on 05-09-2025 Urobilinogen Ql (U) 1 mg/dl High Normal [facility] Venous Blood Gason Blood Gas Type JOE Normal [facility] Comment on above: Performed By: #### L [id number] #### [facility] Laboratory [address] [place], [address] O2 Delivery Dev Not entered Normal [facility] Comment on above: Performed By: #### L [id number] #### [facility] Laboratory [address] [place], [address] SITE Not entered Normal [facility] Comment on above: Performed By: #### L [id number] #### [facility] Laboratory [address] [place], [address] VBG BE 3 mmol/L Normal -1.0-3.5 [facility] Comment on above: Performed By: #### L [id number] #### [facility] Laboratory [address] [place], [address] VBG pCO2 37.5 mmHg Low 41-51 [facility] Comment on above: Performed By: #### L [id number] #### [facility] Laboratory [address] [place], [address] VBG pH 7.46 High 7.32-7.42 [facility] Comment on above: Performed By: #### L [id number] #### [facility] Laboratory [address] [place], [address] VBG PO2 23 mmHg Low 25-40 [facility] Comment on above: Performed By: #### L [id number] #### [facility] Laboratory [address] [place], [address] VBG SO2 44 Low 50-70 [facility] Comment on above: Performed By: #### L [id number] #### [facility] Laboratory [address] [place], [address] Venous blood base excess patrick surementOrdered By: Isidoro Medrano on 05-09-2025 Base excess Calc (BldV) [Moles/Vol] 3 mmol/L -1.0-3.5 [facility] Venous blood bicarbonate patrick surementOrdered By: Isidoro Medrano on 05-09-2025 HCO3 (Bld) [Moles/Vol] 27 mmol/L High 22-26 [facility] Comment on above: Performed By: #### L [id number] #### [facility] Laboratory [address] [facility] [place], [place], [id number] Venous blood oxygen saturati on measurementOrdered By: Isidoro Medrano on 05-09-2025 Oxygen saturation in Blood 44 % Low 50-70 [facility] Venous blood pH measurementO rdered By: Isidoro Medrano on 05-09-2025 pH (BldV) 7.46 [pH] High 7.32-7.42 [facility] Venous blood partial pressur e of carbon dioxide measurementOrdered By: Isidoro Medrano on 05-09-2025 CO2 (BldV) [Partial pressure] 37.5 mm[Hg] Low 41-51 [facility] Venous blood partial pressur e of oxygen measurementOrdered By: Isidorodeion Elkins on 05-09-2025 Oxygen (BldV) [Partial pressure] 23 mm[Hg] Low 25-40 [facility] Venous blood total carbon di oxide measurementOrdered By: Isidoro Medrano on 05-09-2025 CO2 [Moles/Vol] 28 mmol/L Normal 23-33 [facility] Comment on above: Performed By: #### L [id number] #### [facility] Laboratory [address] [facility] [place], [place], [phone] White blood cell (WBC) count Ordered By: Isidoro Medrano on 05-09-2025 WBC (Bld) [#/Vol] 13.0 10*3/uL High 4.4-11.[address] [facility] White blood cell countOrdere d By: Isidoro Medrano on 05-09-2025 White blood cell count 0-5 SEEN /hpf 0-5 [facility] CNPNon 05-07-2025 CNPN Telephone ([facility]) CHERYL ABARCA ([id number]) 1935 F Date Time Provider Department 05/07/25 CARL RENDON During your visit today, we recorded the following information about you: Carol Rivera RN 05/07/2025 1:24 PM Signed Patient was seen at [facility] ER on 05/02/25 due to shortness of breath and was discharged to home. Discharge instructions stated for pt to increase her torsemide 20 mg to 2 in the morning for the next 3 days, and continue to take metoprolol 25 mg follow up with Cardiology. Pt to see Cardiology tomorrow for follow up appt. Pt asking if Dr. Rendon would like to her to follow up with him as well? [place] advise pt. Carl Rendon MD 05/07/2025 1:28 PM Signed Let Cheryl know she does need to f/u with me from the ER visit because the Shortness of Breath is related to her heart and she is seeing cardio for it. Ruth Blake LPN 05/07/2025 2:38 PM Signed Left message for pt to contact office. NEW Steen Sherrie, RN 05/07/2025 4:21 PM Signed Patient given message below. Patient states she will have to call back to make appt. Allergies As of Date: 05/07/2025 Noted Allergy Reaction BACTRIM DS (SULFAMETHOXAZOLE-TRI M*01/04/2008 2 - Rash Date Reviewed: 04/25/2025 Reviewed by: Ruth Blake LPN - Fully Assessed Reason for Visit: Patient Question [4667] Prescriptions as of 05/07/2025 - torsemide (DEMADEX) 20 mg tablet Take 20 mg by mouth once daily. - metoprolol succinate ER (TOPROL XL) 25 mg 24 hr tablet Take 1 tablet by mouth two times a day. Per [facility] - Benzonatate 200 mg capsule Take 1 [...] a day. 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] 06/03/2015 Cervical radiculopathy [M54.12] 03/14/2020 DDD (degenerative disc disease), cervical [M50.*03/14/2020 Carpal tunnel syndrome, bilateral [G56.03] 03/14/2020 Medication management [Z79.899] 04/28/2021 Living will on file [ALL2016] 12/15/2021 Advance directive discussed with patient [Z71.8*12/15/2021 Medicare annual wellness visit, subsequent [Z00*12/15/2021 Acute pain of right shoulder [M25.511] 12/19/2021 12/27/2023 Right hip pain [M25.551] 12/19/2021 Acute pain of both knees [M25.561, M25.562] 12/30/2022 12/27/2023 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 Paroxysmal atrial fibrillation (HCC) [I48.0] 01/04/2024 Chronic systolic CHF (congestive heart failure)*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 *01/04/2024 LIZZY (generalized anxiety disorder) [F41.1] 02/01/2024 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] 01/08/2025 Neoplasm of uncertain behavior of skin of upper*01/08/2025 01/30/2025 Common wart [B07.8] 01/30/2025 On amiodarone therapy [Z79.899] 04/16/2025 Encounter Status:Closed by CAROL RIVERA on 05/07/25 Normal [facility] Absolute lymphocyte countOrd ered By: Dougie Rivero on 05-02-2025 Lymphocytes Auto (Unsp spec) [#/Vol] 0.72 10*3/uL Low 0.83-4.51 [facility] Absolute neutrophil countOrd ered By: Dougie Rivero on 05-02-2025 Neutrophils (Bld) [#/Vol] 11.6 10*3/uL High 2.0-7.7 [facility] Anion gap in Serum or Plasma Ordered By: Dougie Rivero on 05-02-2025 Anion gap [Moles/Vol] 15 mmol/L 5-15 [facility] Automated blood erythrocyte countOrdered By: Dougie Rivero on 05-02-2025 RBC (Bld) [#/Vol] 4.04 10*6/uL Low 4.2-5.[address] [facility] Comment on above: Performed By: #### L [id number] #### [facility] [place], [address] Automated blood hematocrit ( percentage)Ordered By: Dougie Rivero on 05-02-2025 Hematocrit (Bld) [Volume fraction] 37.8 % Normal 37-47 [facility] Comment on above: Performed By: #### L [id number] #### [facility] Laboratory [address] [place], [address] Automated lymphocyte count a s percentage of total leukocytesOrdered By: Dougie Rivero on 05-02-2025 Lymphocytes/100 WBC Auto (Unsp spec) 5.6 % Low 19-41 [facility] BUN/creatinine ratioOrdered By: Dougie Rivero on 05-02-2025 Urea nitrogen/Creatinine [Mass ratio] 20.9 mg/mg High 10-20 [facility] Basic Metabolic Profile (BMP )on 05-02-2025 BUN/CRE 20.9 RATIO High 10-20 [facility] Comment on above: Performed By: #### L [id number] #### [facility] Laboratory [address] [place], [address] ECRCL 29.81 ml/min Low 50-250 [facility] Comment on above: Performed By: #### L [id number] #### [facility] Laboratory [address] [place], [address] GAP 15 Normal 5-15 [facility] Comment on above: Performed By: #### L [id number] #### [facility] Laboratory [address] [place], [address] Potassium [Moles/Vol] 3.7 mmol/L Normal 3.3-5.1 [facility] [facility] Comment on above: Performed By: #### L 499.0042 #### [facility] [address] [place], [address] Basophil percentageOrdered B y: Dougie Rivero on 05-02-2025 Basophils/100 WBC (Bld) 0.4 % Normal 0-1 [facility] Comment on above: Performed By: #### L 499.0042 #### [facility] [address] [place], [address] CBC W/Diff, Automatedon 10 Absolute Lymph 0.72 X10 3/uL Low 0.83-4.51 [facility] Comment on above: Performed By: #### L 499.0042 #### [facility] [address] [place], [address] Absolute Neut 11.6 X10 3/uL High 2.0-7.7 [facility] Comment on above: Performed By: #### L 499.0042 #### [facility] [address] [place], [address] IG% 1.500 High 0.0-0.9 [facility] Comment on above: Result Comment: IG% - Immature Granulocytes (promyelocytes, myelocytes and metamyelocytes) > 1% indicates that a LEFT SHIFT is Present. Performed By: #### L 499.0042 #### [facility] [address] [place], [address] Lymphocytes/100 WBC (Bld) 5.6 % Low 19-41 [facility] Comment on above: Performed By: #### L 499.0042 #### [facility] [address] [place], [address] Nucleated RBC (Bld) [#/Vol] 0 10*3/uL Normal 0-5 [facility] Comment on above: Performed By: #### L 499.0042 #### [facility] [address] [place], [address] RDW SD 51.2 fl High 35.1-43.9 [facility] Comment on above: Performed By: #### L 499.0042 #### [facility] [address] [place], [address] CNOVon 05-02-2025 CNOV Office Visit (BEATRIS) NESSCHERYL GARCIA ([id number]) 1935 F Date Time Provider Department 05/02/25 10:30 AM OMARI NAVAS During your visit today, we recorded the following information about you: Omari Navas APRN.DIRECTOR ASSET 05/02/2025 10:30 AM Signed Patient triaged at urgent care. Here today with dizziness, sob. Hx of afib uncontrolled. I will refer to ER. Prefers pov. Unclear what hospital will go to at this time. Allergies As of Date: 05/02/2025 Noted Allergy Reaction BACTRIM DS (SULFAMETHOXAZOLE-TRI M*01/04/2008 2 - Rash Date Reviewed: 04/25/2025 Reviewed by: Ruth Blake LPN - Fully Assessed Primary Visit Diagnosis:Dizziness [R42] Prescriptions as of 05/02/2025 - torsemide (DEMADEX) 20 mg tablet Take [...] a day. 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] 06/03/2015 Cervical radiculopathy [M54.12] 03/14/2020 DDD (degenerative disc disease), cervical [M50.*03/14/2020 Carpal tunnel syndrome, bilateral [G56.03] 03/14/2020 Medication management [Z79.899] 04/28/2021 Living will on file [WMK2519] 12/15/2021 Advance directive discussed with patient [Z71.8*12/15/2021 Medicare annual wellness visit, subsequent [Z00*12/15/2021 Acute pain of right shoulder [M25.511] 12/19/2021 12/27/2023 Right hip pain [M25.551] 12/19/2021 Acute pain of both knees [M25.561, M25.562] 12/30/2022 12/27/2023 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 Paroxysmal atrial fibrillation (HCC) [I48.0] 01/04/2024 Chronic systolic CHF (congestive heart failure)*01/04/2024 [facility] current use of anticoagulant therapy *01/04/2024 LIZZY (generalized anxiety disorder) [F41.1] 02/01/2024 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] 01/08/2025 Neoplasm of uncertain behavior of skin of upper*01/08/2025 01/30/2025 Common wart [B07.8] 01/30/2025 On amiodarone therapy [Z79.899] 04/16/2025 Encounter Status:Closed by OMARI NAVAS on 05/02/25 Normal [facility] Carbon dioxide, total [Moles /volume] in Central venous bloodOrdered By: Dougie Rivero on 05-02-2025 CO2 [Moles/Vol] 21.2 mmol/L Normal 21.0-32.0 [facility] Comment on above: Performed By: #### L 499.0042 #### [facility] [address] [place], [place], [address] Chest PA and Lateralon 05-02 Chest PA and Lateral [facility] Imaging Services [address] [place], [place] [address] Chest PA and Lateral MR#: [id number] Acct: [id number] Name: CHERYL ABARCA Rep #: [id number] : 1935 F 89 From: Marco Rodas PCP: Dr. Carl Rendon MD Status: [facility] ER Study: Chest PA and Lateral Date of Exam: 05/02/25 Exam# [id number] Ordering Dr: Dougie Rivero MD PROCEDURE: CHEST PA AND LATERAL 05/02/2025 REASON FOR EXAM: DYSPNEA, CASTANON, BILATERAL EDEMA, HX CHF TECHNIQUE: Procedure Code: RADCXR Modality: DX Procedure: CHEST PA AND LATERAL COMPARISON: PA and lateral chest of 04/10/2025. RAD/Chest PA and Lateral IMPRESSION: A small left pleural effusion is seen. No pneumothorax is noted. Mild Interstitial Pulmonary Edema is noted. No focal infiltrate is seen. The cardiomediastinal silhouette is stable, without evidence of cardiomegaly. Yjul-ly-lquxmkzc degenerative changes of the visualized spine are also seen. Reading Location: [place] [address] CC: Dr. Carl Rendon MD; Dr. Dougie Rivero MD 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Signed Normal [facility] Chloride assayOrdered By: Leon Rivero on 05-02-2025 Chloride [Moles/Vol] 104 mmol/L Normal 98-108 [facility] Comment on above: Performed By: #### L [id number] #### [facility] [address] [facility] [place], [address] Emergency Department Summary on 05-02-2025 Emergency Department Summary [facility] Medical Records Department [address] [place] [address] Emergency Department Summary 05/02/25 MR#: [id number] Acct: [id number] Name: CHERYL ABARCA Rep #: [id number] : 1935 89 From: Dougie Rivero MD PCP: Dr. Carl Rendon MD Status:REG ER Location: ED HPI History of Present Illness Chief Complaint: Shortness of Breath Detail of Chief Complaint: Dyspnea, dyspnea on exertion and increased orthopnea Informant: patient and spouse/S.O. Onset/Context/Timing Onset: Weeks Context: gradual Timing: Continuous and Waxes and wanes Quality: Positive for Dyspnea on exertion and Orthopnea; Negative for PND or Wheezing Current Severity: Gone Maximum Severity: Moderate Worsened by: Exertion and Lying flat; Not Worsened By Coughing Relieved by: Nothing Associated Symptoms Negative for cough, rhinorrhea, post nasal drip, ear pain, fever, sore throat, subjective, chills or sweats Chest Pain: Positive for None Narrative Narrative: Patient is an 89-year-old woman. She is on anticoagulant for paroxysmal atrial fibrillation. She states her furosemide was recently changed to torsemide. She is not certain of the strength. There is also history of hypertension, hypercholesterolemia. She is on metoprolol 25 mg twice daily. She is also on an amiodarone. She had a recent visit with cardiology. No authored by Dontrell Luque was reviewed. Patient was hospitalized in December for congestive heart failure exacerbation. She also had A-fib with RVR. She spontaneously converted during her hospital stay. She had a recent CTA of her chest that revealed no evidence of pulmonary embolus or evidence of heart strain. There was small bilateral pleural effusions noted with interstitial edema noted as well. There is also mild cardiomegaly. Echocardiogram was performed December 28, 2023. Estimated EF was 50%. There is mild concentric left ventricular hypertrophy. Bubble contrast study was negative for zyrhy-xb-zybm intra-arterial shunt. She does have stage III diastolic dysfunction noted. Patient presents with a couple of weeks of dyspnea with activity and orthopnea. She states she sleeps with a large pillow and sofa pillow. She has had some swelling of her legs. She states her diuretic was recently changed. She denies chest pressure, tightness, heaviness or any type of chest pain. She denies fever, chills or night sweats. She has had no weight gain or weight loss to her knowledge. She denies abdominal pain, nausea, vomit or diarrhea. Denies black or maroon-colored stool. She is on apixaban 5 mg twice daily. PE Risk Factors: Negative for Cancer, OCP + Smoking + > 35, Prior DVT or PE, Recent immobilization, Recent surgery or Recent travel Prior similar symptoms: Yes Recent Illness/Hospitalizati on: Yes (December 2023.) [facility] Medical History HTN (hypertension), benign Paroxysmal atrial fibrillation Bradycardia Anxiety and depression Smoker Sleep apnea HTN (hypertension) Afib Home Medications ???Medication ???Instructions ???Recorded ???Last Taken ???Type losartan 100 mg tablet 100 mg PO DAILY blood pressure 11/1605/01/25 History simvastatin 20 mg tablet 20 mg PO QHS cholesterol 12/28/23 05/01/25 History calcium carbonate (Tums) 300 mg PO BID 04/12/24 Unknown His tory venlafaxine 150 mg 150 mg PO QHS 04/12/24 05/01/25 Hi story capsule,extended release 24 hr apixaban 5 mg tablet (Eliquis) 5 mg PO BID #180 TABLETS 12/29/24 05/01/25 Rx latanoprost 0.005 % eye drops 1 drp ophthalmic (eye) QDAY Unknown History spironolactone 25 mg tablet 25 mg PO QDAY #90 tabs 04/10/25 Rx vit C 250 mg-vit E 90 mg-zinc 40 1 tab PO BID 04/10/25 05/01/25 His tory mg-copper 1 iz-qbxzaj-gshuex capsule (PreserVision AREDS-2) amiodarone 200 mg tablet 200 mg PO QDAY #30 tabs 04/13/25 1 Rx buspirone 15 mg tablet 15 mg PO BID 04/20/25 05/01/25 His tory cholecalciferol (vitamin D3) 50 2,000 unit PO QDAY 04/20/25 History mcg (2,000 unit) tablet metoprolol succinate 25 mg 25 mg PO BID #60 tabs 04/24/2502/16 Rx tablet,extended release 24 hr torsemide 20 mg tablet 20 mg PO QAM #30 tabs 04/24/2502/16 Rx benzonatate 200 mg capsule 200 mg PO TID PRN PRN cough Unknown History cefadroxil 500 mg capsule 500 mg PO BID 05/02/25 05/01/25 Hi story Allergy/AdvReac Type Severity Reaction Status Date / Time sulfamethoxazole (From Allergy Intermediate Rash Verified 05/02/25 10:30 Bactrim) trimethoprim (From Bactrim) Allergy Intermediate Rash Verified 05/02/25 10:30 Sulfa (Sulfonamide Allergy Mild Rash Verified 05/02/25 10:30 Antibiotics) Family History Mother Hypertension Grandfather (more content not included)... Normal [facility] Eosinophil percentageOrdered By: Dougie Rivero on 05-02-2025 Eosinophils/100 WBC (Bld) 0.5 % Normal 0-5 [facility] Comment on above: Performed By: #### L 499.0042 #### [facility] [address] [place], [place], [address] Erythrocyte distribution wid th ratioOrdered By: Dougie Rivero on 05-02-2025 Erythrocyte distribution width (RBC) [Ratio] 14.9 % High 11.6-14.6 [facility] Comment on above: Performed By: #### L 499.0042 #### [facility] [address] [place], [place], [address] Erythrocyte distribution wid th standard deviationOrdered By: Duogie Rivero on 05-02-2025 Erythrocyte distribution width (RBC) [Ratio] 51.2 fl High 35.1-43.9 [facility] Glomerular filtration rate ( GFR) estimation/1.73 sq m using serum, plasma, or whole bOrdered By: Dougie Rivero on 05-02-2025 GFR/1.73 sq M.predicted among non-blacks MDRD (S/P/Bld) [Vol rate/Area] 44 mL/min/{1.73_m2} Low >60 [facility] Comment on above: mL/min/1.73m2 CKD-EP I Creatinine Equation (2020) Result Comment: mL/m in/1.73m2 CKD-EPI Creatinine Equation (2020) Performed By: #### L 499.0042 #### [facility] [address] [place], [place], [address] Hemoglobin measurementOrdere d By: Dougie Rivero on 05-02-2025 Hemoglobin (Bld) [Mass/Vol] 12.9 g/dL Normal 12.0-15.0 [facility] Comment on above: Performed By: #### L 499.0042 #### [facility] [address] [place], [place], [address] Immature granulocytes/100 WB C Auto (Bld)Ordered By: Dougie Rivero on 05-02-2025 Immature granulocytes/100 WBC (Bld) 1.500 % High 0.0-0.9 [facility] Comment on above: IG% - Immature Granu locytes (promyelocytes, myelocytes and metamyelocytes) > 1% indicates that a LEFT SHIFT is Present. L501.4021on 05-02-2025 Trop T High Sen 21 ng/L High <=14 [facility] Comment on above: Performed By: #### L 501.4021 #### [facility] [address] [place], [address] MCV (mean corpuscular volume ) determinationOrdered By: Dougie Rivero on 05-02-2025 MCV (RBC) [Entitic vol] 93.6 fL Normal 81-99 [facility] Comment on above: Performed By: #### L 499.0042 #### [facility] [address] [place], [address] Mean corpuscular hemoglobin (MCH) determinationOrdered By: Dougie Rivero on 05-02-2025 MCH (RBC) [Entitic mass] 31.9 pg Normal 27.0-32.0 [facility] Comment on above: Performed By: #### L 499.0042 #### [facility] [address] [place], [address] Mean corpuscular hemoglobin concentration (MCHC) determinationOrdered By: Dougie Rivero on 05-02-2025 MCHC (RBC) [Mass/Vol] 34.1 g/dL Normal 32-36 [facility] Comment on above: Performed By: #### L 499.0042 #### [facility] [address] [place], [address] Mean platelet volume determi nationOrdered By: Dougie Rivero on 05-02-2025 Platelet mean volume (Bld) [Entitic vol] 9.4 fL Normal 6.2-12.0 [facility] Comment on above: Performed By: #### L 499.0042 #### [facility] [address] [place], [address] Monocyte percentageOrdered B y: Dougie Rivero on 05-02-2025 Monocytes/100 WBC (Bld) 2.7 % Normal 0-10 [facility] Comment on above: Performed By: #### L 499.0042 #### [facility] [address] [place], [address] Natriuretic peptide.B prohor ganesh N-Terminal [Mass/volume] in Serum or PlasmaOrdered By: Dougie Rivero on 05-02-2025 Natriuretic peptide.B prohormone N-Terminal [Mass/Vol] 6615 pg/mL High <1800 [facility] Comment on above: Heart Failure Unlike ly: < 300 pg/mLHeart Failure Likely< 50 Years: > 450 pg/mL50-75 Years: > 900 pg/mL>75 Years: > 1800 pg/mL Neutrophil percentageOrdered By: Dougie Rivero on 05-02-2025 Neutrophils/100 WBC (Bld) 89.3 % High 47-70 [facility] Comment on above: Performed By: #### L 499.0042 #### [facility] [address] [place], [place], [address] Nucleated red blood cell per centageOrdered By: Dougie Rivero on 05-02-2025 Nucleated RBC/100 WBC (Bld) [Ratio] 0 % 0-5 [facility] Platelet countOrdered By: Leon Rivero on 05-02-2025 Platelets (Bld) [#/Vol] 258 10*3/uL Normal 150-450 [facility] Comment on above: Performed By: #### L 499.0042 #### [facility] [address] [place], [place], [address] Potassium measurement (mass/ volume)Ordered By: Dougie Rivero on 05-02-2025 Potassium (Unsp spec) [Mass/Vol] 3.7 mmol/L 3.3-5.1 [facility] Pro- Brain NATRIURETIC PEPTI Alec 05-02-2025 Natriuretic peptide B (Bld) [Mass/Vol] 6615 pg/mL High <=1800 [facility] Comment on above: Result Comment: Hear t Failure Unlikely: < 300 pg/mL Heart Failure Likely < 50 Years: > 450 pg/mL 50-75 Years: > 900 pg/mL >75 Years: > 1800 pg/mL Performed By: #### L 499.0042 #### [facility] [address] [place], [place], [address] Serum creatinine measurement (mass/volume)Ordered By: Dougie Rivero on 05-02-2025 Creatinine [Mass/Vol] 1.20 mg/dL Normal 0.70-1.20 [facility] Comment on above: Performed By: #### L 499.0042 #### [facility] [address] [place], [address] Serum glucose measurement (m ass/volume)Ordered By: Dougie Rivero on 05-02-2025 Glucose [Mass/Vol] 213 mg/dL High 70-99 [facility] Comment on above: Performed By: #### L 499.0042 #### [facility] [address] [place], [address] Serum or plasma calcium meche urement (mass/volume)Ordered By: Dougie Rivero on 05-02-2025 Calcium [Mass/Vol] 9.2 mg/dL Normal 7.6-11.0 [facility] Comment on above: Performed By: #### L 499.0042 #### [facility] [address] [place], [address] Serum or plasma urea nitroge n measurement (mass/volume)Ordered By: Dougie Rivero on 05-02-2025 Urea nitrogen [Mass/Vol] 25 mg/dL High 4-19 [facility] Comment on above: Performed By: #### L 499.0042 #### [facility] [address] [place], [address] Sodium levelOrdered By: Dougie Rivero on 05-02-2025 Sodium [Moles/Vol] 140 mmol/L Normal 133-145 [facility] Comment on above: Performed By: #### L 499.0042 #### [facility] [address] [place], [address] Troponin T HS 2 HRon 025 Trop T High Sen 22 ng/L High <=14 [facility] Comment on above: Performed By: #### L 499.0042 #### [facility] [address] [place], [address] Troponin T HS 4 HRon 025 Trop T High Sen Normal <=14 [facility] Comment on above: Result Comment: QUANG ENT DISCHARGED Performed By: #### L 499.0042 #### [facility] [address] [place], [address] Troponin T.cardiac [Mass/vol ume] in Serum or Plasma by High sensitivity methodOrdered By: Dougie Rivero on 05-02-2025 Troponin T.cardiac High sensitivity method [Mass/Vol] 22 ng/L High <14 [facility] Troponin T.cardiac High sensitivity method [Mass/Vol] 21 ng/L High <14 [facility] White blood cell (WBC) count Ordered By: Dougie Rivero on 05-02-2025 WBC (Bld) [#/Vol] 13.0 10*3/uL High 4.4-11.[address] [facility] Comment on above: Performed By: #### L 499.0042 #### [facility] [address] [place], [address] CNOVon 04-25-2025 [facility] NESSJOSECHERYL Alla ([id number]) 1935 F Date Time Provider Department 04/25/25 9:40 AM DIONNA URIARTE [facility] During your visit today, we recorded [...] symptoms worsening before an upcoming trip to [place] on Wednesday. Atrial Fibrillation: - Managed by [...] Done: 12/15/2021 Paroxysmal atrial fibrillation (HCC) 01/04/2024 [facility] Primary osteoarthritis involving multiple joints 12/27/2023 Knee and R hip Right hip pain 12/19/2021 Sleep apnea 06/13/2013 mild sleep apnea. 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 PAST SURGICAL HISTORY OF Right 11/2024 right 2nd toe. PLC BREAST CLIP PERC Left breast TONSILLECTOMY PRIMARY/SECONDARY Tonsillectomy Family History FAMILY HISTORY Problem Relation [...] mouth once daily. apixaban (ELIQUIS) 5 mg t (more content not included)... Normal [facility] Anion gap in Serum or Plasma Ordered By: Dontrell Hernandez on 04-24-2025 Anion gap [Moles/Vol] 15 mmol/L - [facility] BUN/creatinine ratioOrdered By: Dontrell Hernandez on 04-24-2025 Urea nitrogen/Creatinine [Mass ratio] 20.5 mg/mg High 05-14 [facility] Basic Metabolic Profile (BMP )on 04-24-2025 BUN/CRE 20.5 RATIO High 05-14 [facility] Comment on above: Performed By: #### L 500.2500 ####[facility] [address] [place], [address] Calcium [Mass/Vol] 9.4 mg/dL Normal 7.6-11.0 [facility] Comment on above: Performed By: #### L 500.2500 ####[facility] [address] [place], [address] Chloride [Moles/Vol] 105 mmol/L Normal 98-108 [facility] Comment on above: Performed By: #### L 500.2500 ####[facility] [address] [place], [address] CO2 [Moles/Vol] 19.9 mmol/L Low 21.0-32.0 [facility] Comment on above: Performed By: #### L 500.2500 ####[facility] [address] [place], [address] Creatinine [Mass/Vol] 1.11 mg/dL Normal 0.70-1.20 [facility] Comment on above: Performed By: #### L 500.2500 ####[facility] [address] [place], [address] GAP 15 Normal -15 [facility] Comment on above: Performed By: #### L 500.2500 ####[facility] [address] [place], [address] GFR/1.73 sq M.predicted among non-blacks MDRD (S/P/Bld) [Vol rate/Area] 48 mL/min/{1.73_m2} Low >60 [facility] Comment on above: Result Comment: mL/m in/1.73m2 CKD-EPI Creatinine Equation (2020) Performed By: #### L 500.2500 ####[facility] [address] [place], [address] Glucose [Mass/Vol] 108 mg/dL High 70-99 [facility] Comment on above: Performed By: #### L 500.2500 ####[facility] [address] [place], [address] Potassium [Moles/Vol] 4.4 mmol/L Normal 3.3-5.1 [facility] Comment on above: Performed By: #### L 500.2500 ####[facility] [address] [place], [address] Sodium [Moles/Vol] 140 mmol/L Normal 133-145 [facility] Comment on above: Performed By: #### L 500.2500 ####[facility] [address] [place], [address] Urea nitrogen [Mass/Vol] 23 mg/dL High 4-19 [facility] Comment on above: Performed By: #### L 500.2500 ####[facility] [address] [place], [address] Carbon dioxide, total [Moles /volume] in Central venous bloodOrdered By: Dontrell Hernandez on 04-24-2025 CO2 [Moles/Vol] 19.9 mmol/L Low 21.0-32.0 [facility] Cardiology Visit Reporton Cardiology Visit Report [facility] [address] [place], [place] [address] OFFICE VISIT Date of Service: 04/24/25 MR#: [id number] Acct: [id number] Name: CHERYL ABARCA Rep #: [id number] : 1935 Provider: NKECHI Duffy Age/Sex: 89/F Location: [facility] [place] Status: Signed HPI HPI History of Present Illness Details: Cheryl Abarca is an 89-year-old female who presents to office today for follow-up. She was evaluated at [facility] 12/27 - 12/30/2023 for congestive heart failure exacerbation. She was noted to be in atrial fibrillation at a rate of 120-140 bpm. Initial recommendation was to have her metoprolol increased. She converted to sinus rhythm prior to discharge. Her exacerbation was thought to be related to new onset atrial fibrillation. Echocardiogram demonstrated ejection fraction of 50% and stage III diastolic dysfunction. Left and right atrium were noted to be normal size, PASP was 38 mmHg. She presented to [facility] emergency room 01/02/2024 with concerns of tachycardia and her medications were adjusted. Patient saw her primary care physician 03/13/2025 for acute concerns of shortness of breath, dizziness and hypertension noted to be as high as 205/100 at home. EKG at her primary care physician's office that day demonstrated atrial flutter versus atrial fibrillation at a rate of 92 bpm. After consultation with storage receipt poster, primary care physician discontinued amlodipine and initiated metoprolol 50 mg XL daily. She followed up in our office and her amiodarone was decreased to 100 mg as EKG demonstrated a prolonged QTc. Additional follow-up in the office with improvement in QTc resulted in decrease in metoprolol and increased back to 200 mg for her amiodarone. She also reported lower extremity edema and significant shortness of breath with an elevated NT proBNP and was treated with diuresis. Upon presentation today, patient reports ongoing SOB. She continues to notice orthopnea sleeping in a recliner for about a week now. She has not been weighing herself daily at home. She is down 1 lb in 2 weeks according to our scale. 130s/90s is reported home BP findings. She reports ongoing fatigue. She reports ongoing LE edema and is now noticed more in her right side than it was 2 weeks ago. Further ROS below. STOP-BANG Assessment: 1. Do you snore? yes 2. Are you frequently tired during the day? yes 3. Have you been observed gasping or choking while asleep? no 4. Do you have high blood pressure? yes 5. BMI - greater than 35kg/m2? No 6. Age - over 50 years old? yes 7. Neck Circumference - greater than 37 cm for females or 40 cm for males? No 8. Gender - male? no Total STOP-BANG score = 3 which indicates high risk for obstructive sleep apnea (yes to 3 or more questions = high risk of sleep apnea). Intake Vital Signs 03/16/25 09:08 04/24/25 07:54 Height 5 ft 2 in 5 ft 2 in Weight: 158 lb BMI 28.9 BP 126/77 H Blood Pressure Location Lt brachial Position Sitting Respiration 18 Pulse 102 H Pulse Source Monitor Pulse Oximetry (%) 97 Intake Visit Reasons: PER SD/NEEDS EKG Anesthetic Assistant Required: No Is patient in pain?: No Allergies sulfamethoxazole (From Bactrim) Allergy (Intermediate, Verified 04/24/25 09:24) Rash trimethoprim (From Bactrim) Allergy (Intermediate, Verified 04/24/25 09:24) Rash Sulfa (Sulfonamide Antibiotics) Allergy (Mild, Verified 04/24/25 09:24) Rash Medications ???Medication ???Instructions ???Recorded ???Confirmed ???Type losartan 100 mg tablet 100 mg PO DAILY blood pressure 11/1604/24/25 History simvastatin 20 mg tablet 20 mg PO QHS cholesterol 12/28/23 04/24/25 History calcium carbonate (Tums) 300 mg PO BID 04/12/24 04/24/25 Hi story venlafaxine 150 mg 150 mg PO QHS 04/12/24 04/24/25 Hi story capsule,extended release 24 hr apixaban 5 mg tablet (Eliquis) 5 mg PO BID #180 TABLETS 12/29/24 04/24/25 Rx latanoprost 0.005 % eye drops 1 drp ophthalmic (eye) QDAY 04/24/25 History spironolactone 25 mg tablet 25 mg PO QDAY #90 tabs 04/10/25 Rx vit C 250 mg-vit E 90 mg-zinc 40 1 tab PO BID 04/10/25 04/24/25 His tory mg-copper 1 [id number]-ayggyp capsule (PreserVision AREDS-2) amiodarone 200 mg tablet 200 mg PO QDAY #30 tabs 04/13/25 0 04/24/25 Rx buspirone 15 mg tablet 15 mg PO BID 04/20/25 04/24/25 His tory cholecalciferol (vitamin D3) 50 2,000 unit PO QDAY 04/20/25 History mcg (2,000 unit) tablet metoprolol succinate 25 mg 25 mg PO BID #60 tabs 04/24/25 Rx tablet,extended release 24 hr torsemide 20 mg tablet 20 mg PO QAM #30 tabs 04/24/25 Rx Ejection fraction %: 50 Have you fallen in the past year?: No [facility] Medical History ... Normal [facility] Chloride assayOrdered By: Axel Hernandez on 04-24-2025 Chloride [Moles/Vol] 105 mmol/L 98-108 [facility] Glomerular filtration rate ( GFR) estimation/1.73 sq m using serum, plasma, or whole bOrdered By: Dontrell Hernandez on 04-24-2025 GFR/1.73 sq M.predicted among non-blacks MDRD (S/P/Bld) [Vol rate/Area] 48 mL/min/{1.73_m2} Low >60 [facility] Comment on above: mL/min/1.73m2 CKD-EP I Creatinine Equation (2020) Potassium measurement (mass/ volume)Ordered By: Dontrell Hernandez on 04-24-2025 Potassium (Unsp spec) [Mass/Vol] 4.4 mmol/L 3.3-5.1 [facility] Serum creatinine measurement (mass/volume)Ordered By: Dontrell Hernandez on 04-24-2025 Creatinine [Mass/Vol] 1.11 mg/dL 0.70-1.20 [facility] Serum glucose measurement (m ass/volume)Ordered By: Dontrell Hernandez on 04-24-2025 Glucose [Mass/Vol] 108 mg/dL High 70-99 [facility] Serum or plasma calcium meche urement (mass/volume)Ordered By: Dontrell Hernandez on 04-24-2025 Calcium [Mass/Vol] 9.4 mg/dL 7.6-11.0 [facility] Serum or plasma urea nitroge n measurement (mass/volume)Ordered By: Dontrell Castanoniter on 04-24-2025 Urea nitrogen [Mass/Vol] 23 mg/dL High 4-19 [facility] Sodium levelOrdered By: Boom er Demiter on 04-24-2025 Sodium [Moles/Vol] 140 mmol/L 133-145 [facility] CNPNon 04-17-2025 [facility] CHERYL ABARCA ([id number]) 1935 F Date Time Provider Department 04/17/[facility], we recorded the [...] and donepezil. I would suggest going onto [employer] and looking up Woman's compression socks and [...] going on for weeks. Pt discussed with storage receipt poster, who changed her metoprolol and amiodarone, but [...] her heart and would advise she contact [facility] to make them aware of [...] Date: 04/17/2025 Noted Allergy Reaction BACTRIM DS (SULFAMETHOXAZOLE-TRI M*01/04/2008 2 - Rash Date Reviewed: 04/17/2025 Reviewed by: Betty Chen, RT(R) - Fully Assessed Prescriptions as of [...] [M75.90] 06/13/2013 06/04/2016 Sleep apnea [G47.30] 06/13/2013 Ex (more content not included)... Normal [facility] CTA CHEST (NON GATED) W IVCO N PEon 04-17-2025 CTA CHEST (NON GATED) W IVCON PE * * *Final Report* * * DATE OF EXAM: Apr 17 2025 9:07AM [facility] [id number] - CTA CHEST (NON GATED) W DIANA PE / PROCEDURE REASON: multiple diagnoses * [...] suggesting interstitial edema. No consolidation. Small linear hypoventilation/scarr ing in the anterior mid lungs. No suspicious [...] in 6 months to assess for stability/resolution. 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PSCB Transcribe Date/Time: Apr 17 2025 11:37A Dictated by : SMOOTH KAPADIA MD This examination was interpreted and the report reviewed and electronically signed by: SMOOTH KAPADIA MD on Apr 17 2025 11:46AM EST [id number] N Normal [facility] DVT LOWER LTon 04-17-2025 US DVT LOWER LT * * *Final Report* * * DATE [...] imaged segments of the left lower extremity. 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PSCB Transcribe Date/Time: Apr 17 2025 8:05A Dictated by : SAURABH GUTIERREZ MD This examination was interpreted and the report reviewed and electronically signed by: SAURABH GUTIERREZ MD on Apr 17 2025 8:06AM EST [id number] Normal [facility] CNOVon 04-16-2025 CNOV Office Visit (FAMPWS ) CHERYL ABARCA ([id number]) 1935 F Date Time Provider Department 04/16/25 [...] Date Acute systolic CHF (congestive heart failure) ([facility]) 01/04/2024 Echo 12/29/23. EF 50% Adjustment disorder with depressed mood 04/08/2005 Advance directive discussed with patient 12/15/2021 Discussed 11/2021 Carpal tunnel syndrome, bilateral 03/14/2020 Cervical radiculopathy 03/14/2020 Chronic bronchitis ([facility]) 05/31/2014 Chronic systolic CHF (congestive heart failure) ([facility]) 01/04/2024 Echo 12/29/23. EF 50% Common wart [...] Done: 12/15/2021 Paroxysmal atrial fibrillation (HCC) 01/04/2024 [facility] Primary osteoarthritis involving multiple joints 12/27/2023 Knee and R hip Right hip pain 12/19/2021 Sleep apnea 06/13/2013 mild sleep apnea. 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 PAST SURGICAL HISTORY OF Right 11/2024 right 2nd toe. PLC BREAST CLIP PERC Left breast TONSILLECTOMY PRIMARY/SECONDARY Tonsillectomy Family History FAMILY HISTORY Problem Relation [...] 1 tablet by mouth once daily. Per [facility]. metoprolol succinate ER (TOPROL XL) [...] 750mg, (TUMS) 300 mg (750 mg) chewable tabl (more content not included)... Normal [facility] TSH SerPl-aCncon 04-16-2025 TSH Qn 2.570 m[IU]/L Normal 0.270-4.200 [facility] Comment on above: Order Comment: Speci men Type: BLOOD SPECIMENOrdering Facility: [facility] Address: [address] [place] [address] Performed By: #### 3 016-3 ####[facility] LABCLIA [id number] [place] [id number] [place] Absolute lymphocyte countOrd ered By: Dontrell Hernandez on 04-10-2025 Lymphocytes Auto (Unsp spec) [#/Vol] 0.96 10*3/uL 0.83-4.51 [facility] Absolute neutrophil countOrd ered By: Dontrell Hernandez on 04-10-2025 Neutrophils (Bld) [#/Vol] 7.9 10*3/uL High 2.0-7.7 [facility] Anion gap in Serum or Plasma Ordered By: Dontrell Hernandez on 04-10-2025 Anion gap [Moles/Vol] 13 mmol/L 5- [facility] Automated lymphocyte count a s percentage of total leukocytesOrdered By: Dontrell Hernandez on 04-10-2025 Lymphocytes/100 WBC Auto (Unsp spec) 10.1 % Low 19-41 [facility] BUN/creatinine ratioOrdered By: Dontrelljsoe luis Hernandez on 04-10-2025 Urea nitrogen/Creatinine [Mass ratio] 15.0 mg/mg 10- [facility] Basic Metabolic Profile (BMP )on 04-10-2025 BUN/CRE 15.0 RATIO Normal - [facility] Comment on above: Performed By: #### L 100.0100, L503.7505, L500.2500, L300.8000 ####[facility] [address] [place], [address] Calcium [Mass/Vol] 9.1 mg/dL Normal 7.6-11.0 [facility] Comment on above: Performed By: #### L 100.0100, L503.7505, L500.2500, L300.8000 ####[facility] [address] [place], [address] Chloride [Moles/Vol] 106 mmol/L Normal 98-108 [facility] Comment on above: Performed By: #### L 100.0100, L503.7505, L500.2500, L300.8000 ####[facility] [address] [place], [address] CO2 [Moles/Vol] 22.5 mmol/L Normal 21.0-32.0 [facility] Comment on above: Performed By: #### L 100.0100, L503.7505, L500.2500, L300.8000 ####[facility] [address] [place], [address] Creatinine [Mass/Vol] 1.08 mg/dL Normal 0.70-1.20 [facility] Comment on above: Performed By: #### L 100.0100, L503.7505, L500.2500, L300.8000 ####[facility] [address] [place], [address] GAP 13 Normal 5-15 [facility] Comment on above: Performed By: #### L 100.0100, L503.7505, L500.2500, L300.8000 ####[facility] [address] [place], [address] GFR/1.73 sq M.predicted among non-blacks MDRD (S/P/Bld) [Vol rate/Area] 49 mL/min/{1.73_m2} Low >60 [facility] Comment on above: Result Comment: mL/m in/1.73m2 CKD-EPI Creatinine Equation (2020) Performed By: #### L 100.0100, L503.7505, L500.2500, L300.8000 ####[facility] [address] [place], [address] Glucose [Mass/Vol] 117 mg/dL High 70-99 [facility] Comment on above: Performed By: #### L 100.0100, L503.7505, L500.2500, L300.8000 ####[facility] [address] [place], [address] Potassium [Moles/Vol] 4.0 mmol/L Normal 3.3-5.1 [facility] Comment on above: Performed By: #### L 100.0100, L503.7505, L500.2500, L300.8000 ####[facility] [address] [place], [address] Sodium [Moles/Vol] 141 mmol/L Normal 133-145 [facility] Comment on above: Performed By: #### L 100.0100, L503.7505, L500.2500, L300.8000 ####[facility] [address] [place], [address] Urea nitrogen [Mass/Vol] 16 mg/dL Normal 4-19 [facility] Comment on above: Performed By: #### L 100.0100, L503.7505, L500.2500, L300.8000 ####[facility] [address] [place], [address] Basophil percentageOrdered B y: Dontrell Hernandez on 04-10-2025 Basophils/100 WBC (Bld) 0.5 % 0-1 W [facility] CBC W/Diff, Automatedon 03-26 Absolute Lymph 0.96 X10 3/uL Normal 0.83-4.51 [facility] Comment on above: Performed By: #### L 100.0100, L503.7505, L500.2500, L300.8000 ####[facility] [address] [place], [address] Absolute Neut 7.9 X10 3/uL High 2.0-7.7 [facility] Comment on above: Performed By: #### L 100.0100, L503.7505, L500.2500, L300.8000 ####[facility] [address] [place], [address] Basophils/100 WBC (Bld) 0.5 % Normal 0-1 [facility] Comment on above: Performed By: #### L 100.0100, L503.7505, L500.2500, L300.8000 ####[facility] [address] [place], [address] Eosinophils/100 WBC (Bld) 0.7 % Normal 0-5 [facility] Comment on above: Performed By: #### L 100.0100, L503.7505, L500.2500, L300.8000 ####[facility] [address] [place], [address] Erythrocyte distribution width (RBC) [Ratio] 14.5 % Normal 11.6-14.6 [facility] Comment on above: Performed By: #### L 100.0100, L503.7505, L500.2500, L300.8000 ####[facility] [address] [place], [address] Hematocrit (Bld) [Volume fraction] 39.3 % Normal 37-47 [facility] Comment on above: Performed By: #### L 100.0100, L503.7505, L500.2500, L300.8000 ####[facility] [address] [place], [address] Hemoglobin (Bld) [Mass/Vol] 13.2 g/dL Normal 12.0-15.0 [facility] Comment on above: Performed By: #### L 100.0100, L503.7505, L500.2500, L300.8000 ####[facility] [address] [place], [address] IG% 0.600 Normal 0.0-0.9 [facility] Comment on above: Result Comment: IG% - Immature Granulocytes (promyelocytes, myelocytes and metamyelocytes) > 1% indicates that a LEFT SHIFT is Present. Performed By: #### L 100.0100, L503.7505, L500.2500, L300.8000 ####[facility] [address] [place], [address] Lymphocytes/100 WBC (Bld) 10.1 % Low 19-41 [facility] Comment on above: Performed By: #### L 100.0100, L503.7505, L500.2500, L300.8000 ####[facility] [address] [place], [address] MCH (RBC) [Entitic mass] 31.4 pg Normal 27.0-32.0 [facility] Comment on above: Performed By: #### L 100.0100, L503.7505, L500.2500, L300.8000 ####[facility] [address] [place], [address] MCHC (RBC) [Mass/Vol] 33.6 g/dL Normal 32-36 [facility] Comment on above: Performed By: #### L 100.0100, L503.7505, L500.2500, L300.8000 ####[facility] [address] [place], [address] MCV (RBC) [Entitic vol] 93.6 fL Normal 81-99 [facility] Comment on above: Performed By: #### L 100.0100, L503.7505, L500.2500, L300.8000 ####[facility] [address] [place], [address] Monocytes/100 WBC (Bld) 4.6 % Normal 0-10 [facility] Comment on above: Performed By: #### L 100.0100, L503.7505, L500.2500, L300.8000 ####[facility] [address] [place], [address] Neutrophils/100 WBC (Bld) 83.5 % High 47-70 [facility] Comment on above: Performed By: #### L 100.0100, L503.7505, L500.2500, L300.8000 ####[facility] [address] [place], [address] Nucleated RBC (Bld) [#/Vol] 0 10*3/uL Normal 0-5 [facility] Comment on above: Performed By: #### L 100.0100, L503.7505, L500.2500, L300.8000 ####[facility] [address] [place], [address] Platelet mean volume (Bld) [Entitic vol] 9.4 fL Normal 6.2-12.0 [facility] Comment on above: Performed By: #### L 100.0100, L503.7505, L500.2500, L300.8000 ####[facility] [address] [place], [address] Platelets (Bld) [#/Vol] 258 10*3/uL Normal 150-450 [facility] Comment on above: Performed By: #### L 100.0100, L503.7505, L500.2500, L300.8000 ####[facility] [address] [place], [address] RBC (Bld) [#/Vol] 4.20 10*6/uL Normal 4.2-5.[address] [facility] Comment on above: Performed By: #### L 100.0100, L503.7505, L500.2500, L300.8000 ####[facility] [address] [place], [address] RDW SD 49.5 fl High 35.1-43.9 [facility] Comment on above: Performed By: #### L 100.0100, L503.7505, L500.2500, L300.8000 ####[facility] [address] [place], [address] WBC (Bld) [#/Vol] 9.5 10*3/uL Normal 4.4-11.0 [facility] Comment on above: Performed By: #### L 100.0100, L503.7505, L500.2500, L300.8000 ####[facility] [address] [place], [address] Carbon dioxide, total [Moles /volume] in Central venous bloodOrdered By: Dontrell Hernandez on 04-10-2025 CO2 [Moles/Vol] 22.5 mmol/L 21.0-32.0 [facility] Cardiology Visit Reporton Cardiology Visit Report [facility] [address] [place] [address] OFFICE VISIT Date of Service: 04/10/25 MR#: [id number] Acct: [id number] Name: CHERYL ABARCA Rep #: [id number] : 1935 Provider: NKECHI Duffy Age/Sex: 89/F Location: [facility] [place] Status: Signed HPI HPI History of Present Illness Details: Cheryl Abarca is an 89-year-old female who presents to office today for follow-up. She was evaluated at [facility] 12/27 - 12/30/2023 for congestive heart failure exacerbation. She was noted to be in atrial fibrillation at a rate of 120-140 bpm. Initial recommendation was to have her metoprolol increased. She converted to sinus rhythm prior to discharge. Her exacerbation was thought to be related to new onset atrial fibrillation. Echocardiogram demonstrated ejection fraction of 50% and stage III diastolic dysfunction. Left and right atrium were noted to be normal size, PASP was 38 mmHg. She presented to [facility] emergency room 01/02/2024 with concerns of tachycardia and her medications were adjusted. Patient saw her primary care physician 03/13/2025 for acute concerns of shortness of breath, dizziness and hypertension noted to be as high as 205/100 at home. EKG at her primary care physician's office that day demonstrated atrial flutter versus atrial fibrillation at a rate of 92 bpm. After consultation with storage receipt poster, primary care physician discontinued amlodipine and initiated metoprolol 50 mg XL daily. Her amlodipine was reinitiated at 5 mg 03/28/2025 secondary to hypertension. Upon presentation today, patient reports worsening in her SOB. She notices SOB at rest, with activity and with lying down having to prop herself up on pillows to sleep. She has noticed a 2-3lbs weight gain. SOB worsened with reinitiation of amlodipine. She finds herself dizzy a lot of the time, noticed at rest and with movement. Blood pressure findings at home on average in the 130s/90s???100s. She reports chronic fatigue that appears to be worsened as well. She reports noticing left lower extremity edema that began about 2 weeks ago. She believes she may have bumped her knee around that time. She denies any recent travel or clotting disorders and has been compliant with Eliquis. She completed her 14-day monitor at the end of last week and these records are unavailable at this time. Further ROS below. Intake Vital Signs 03/16/25 09:08 04/10/25 06:55 Height 5 ft 2 in 5 ft 2 in Weight: 159 lb BMI 29.0 BP 136/76 H 131/85 H Blood Pressure Location Lt brachial Lt brachial Position Supine Sitting Respiration 18 Pulse 94 Pulse Source Monitor Pulse Oximetry (%) 97 Intake Visit Reasons: Amio; SOB, leg swelling see clinical notes Anesthetic Assistant Required: No Is patient in pain?: No Allergies Sulfa (Sulfonamide Antibiotics) Allergy (Mild, Verified 04/10/25 08:30) Rash Medications ???Medication ???Instructions ???Recorded ???Confirmed ???Type losartan 100 mg tablet 100 mg PO DAILY blood pressure 11/1604/10/25 History simvastatin 20 mg tablet 20 mg PO QHS cholesterol 12/28/23 04/10/25 History buspirone 7.5 mg tablet 7.5 mg PO BID 04/12/24 04/10/25 [employer] calcium carbonate (Tums) 300 mg PO BID 04/12/24 04/10/25 Hi story venlafaxine 150 mg 150 mg PO QHS 04/12/24 04/10/25 Keisense story capsule,extended release 24 hr furosemide 40 mg tablet 40 mg PO DAILY #90 TABLETS 4 04/10/25 Rx apixaban 5 mg tablet (Eliquis) 5 mg PO BID #180 TABLETS 12/29/24 04/10/25 Rx cholecalciferol (vitamin D3) 50 25 mcg PO QDAY 02/20/25 04/10/25 H istory mcg (2,000 unit) tablet latanoprost 0.005 % eye drops 1 drp ophthalmic (eye) QDAY 04/10/25 History metoprolol succinate 50 mg 50 mg PO QDAY 03/16/25 04/10/25 Hi story tablet,extended release 24 hr amiodarone 100 mg tablet 100 mg PO QDAY #90 tabs 03/27/25 0 04/10/25 Rx spironolactone 25 mg tablet 25 mg PO QDAY #90 tabs 04/10/25 Rx vit C 250 mg-vit E 90 mg-zinc 40 1 tab PO BID 04/10/25 04/10/25 His tory mg-copper 1 [id number] capsule (PreserVision AREDS-2) Ejection fraction %: 50 Have you fallen in the past year?: No PFSH Medical History HTN (hypertension), benign Paroxysmal atrial fibrillation Bradycardia Anxiety and depression Smoker Sleep apnea HTN (hypertension) Afib Surgical History History of tonsillectomy History of carpal tunnel release Family History Mother Hypertension Grandfather Hypertension Grandmother Hypertension Father Cancer Social History Smoking (more content not included)... Normal [facility] Chest PA and Lateralon 04-10 Chest PA and Lateral [facility] Imaging Services [address] [place], [place] [id number] Chest PA and Lateral MR#: [id number] Acct: [id number] Name: CHERYL ABARCA Rep #: [id number] : 1935 F 89 From: Carmelo Rodas PCP: Dr. Carl Rendon MD Status: REG CLI Study: Chest PA and Lateral Date of Exam: 04/10/25 Exam# [id number] Ordering Dr: Dontrell Hernandez PROCEDURE: CHEST PA AND LATERAL 04/10/2025 REASON FOR EXAM: SHORTNESS OF BREATH TECHNIQUE: Procedure Code: RADCXR Modality: DX Procedure: CHEST PA AND LATERAL COMPARISON: None FINDINGS: Bibasilar subsegmental atelectasis. Mild pulmonary vascular congestion. Underlying chronic lung disease not excluded. No focal consolidation. No pleural effusion or pneumothorax. Cardiac silhouette is within normal limits. No acute fractures. RAD/Chest PA and Lateral IMPRESSION: Bibasilar subsegmental atelectasis. Mild pulmonary vascular congestion. Underlying chronic lung disease not excluded. No focal consolidation. Reading Location: [facility] CC: Dr. 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 Performed By: #### L 100.0100, L503.7505, L500.2500, L300.8000 ####[facility] [id number] [place], [address] Eosinophil percentageOrdered By: Dontrell Hernandez on 04-10-2025 Eosinophils/100 WBC (Bld) 0.7 % 0-5 [facility] Erythrocyte distribution wid th ratioOrdered By: Dontrell Hernandez on 04-10-2025 Erythrocyte distribution width (RBC) [Ratio] 14.5 % 11.6-14.6 [facility] Erythrocyte distribution wid th standard deviationOrdered By: Dontrell Hernandez on 04-10-2025 Erythrocyte distribution width (RBC) [Ratio] 49.5 fl High 35.1-43.9 [facility] Glomerular filtration rate ( GFR) estimation/1.73 sq m using serum, plasma, or whole bOrdered By: Dontrell Hernandez on 04-10-2025 GFR/1.73 sq M.predicted among non-blacks MDRD (S/P/Bld) [Vol rate/Area] 49 mL/min/{1.73_m2} Low >60 [facility] Comment on above: mL/min/1.73m2 CKD-EP I Creatinine Equation (2020) Hematocrit Auto (Bld) [Volum e fraction]Ordered By: Dontrell David on 04-10-2025 Hematocrit (Bld) [Volume fraction] 39.3 % 37-47 [facility] Hemoglobin measurementOrdere d By: Dontrell David on 04-10-2025 Hemoglobin (Bld) [Mass/Vol] 13.2 g/dL 12.0-15.0 [facility] Immature granulocytes/100 WB C Auto (Bld)Ordered By: Dontrell David on 04-10-2025 Immature granulocytes/100 WBC (Bld) 0.600 % 0.0-0.9 [facility] Comment on above: IG% - Immature Granu locytes (promyelocytes, myelocytes and metamyelocytes) > 1% indicates that a LEFT SHIFT is Present. MCV (mean corpuscular volume ) determinationOrdered By: [facility] David on 04-10-2025 MCV (RBC) [Entitic vol] 93.6 fL 81-99 [facility] Mean corpuscular hemoglobin (MCH) determinationOrdered By: [facility] on 04-10-2025 MCH (RBC) [Entitic mass] 31.4 pg 27.0-32.0 [facility] Mean corpuscular hemoglobin concentration (MCHC) determinationOrdered By: [facility] on 04-10-2025 MCHC (RBC) [Mass/Vol] 33.6 g/dL 32-36 [facility] Mean platelet volume determi nationOrdered By: [facility] on 04-10-2025 Platelet mean volume (Bld) [Entitic vol] 9.4 fL 6.2-12.0 [facility] Monocyte percentageOrdered B y: Dontrelljose luis Hernandez on 04-10-2025 Monocytes/100 WBC (Bld) 4.6 % 0-10 [facility] Natriuretic peptide.B prohor ganesh N-Terminal [Mass/volume] in Serum or PlasmaOrdered By: Dontrell Hernandez on 04-10-2025 Natriuretic peptide.B prohormone N-Terminal [Mass/Vol] 5252 pg/mL High <1800 [facility] Comment on above: Heart Failure Unlike ly: < 300 pg/mLHeart Failure Likely< 50 Years: > 450 pg/mL50-75 Years: > 900 pg/mL>75 Years: > 1800 pg/mL Neutrophil percentageOrdered By: Dontrell Hernandez on 04-10-2025 Neutrophils/100 WBC (Bld) 83.5 % High 47-70 [facility] Nucleated red blood cell per centageOrdered By: Dontrell Hernandez on 04-10-2025 Nucleated RBC/100 WBC (Bld) [Ratio] 0 % 0-5 [facility] Platelet countOrdered By: Axel Hernandez on 04-10-2025 Platelets (Bld) [#/Vol] 258 10*3/uL 150-450 [facility] Potassium measurement (mass/ volume)Ordered By: Dontrell Hernandez on 04-10-2025 Potassium (Unsp spec) [Mass/Vol] 4.0 mmol/L 3.3-5.1 [facility] Pro- Brain NATRIURETIC PEPTI Alec 04-10-2025 Natriuretic peptide B (Bld) [Mass/Vol] 5252 pg/mL High <=1800 [facility] Comment on above: Result Comment: Hear t Failure Unlikely: < 300 pg/mL Heart Failure Likely < 50 Years: > 450 pg/mL 50-75 Years: > 900 pg/mL >75 Years: > 1800 pg/mL Performed By: #### L 100.0100, L503.7505, L500.2500, L300.8000 ####[facility] [id number] [place], [place], [id number] RBC Auto (Bld) [#/Vol]Ordere d By: Dontrell Hernandez on 04-10-2025 RBC (Bld) [#/Vol] 4.20 10*6/uL 4.2-5.[address] [facility] Serum creatinine measurement (mass/volume)Ordered By: Dontrell Hernandez on 04-10-2025 Creatinine [Mass/Vol] 1.08 mg/dL 0.70-1.20 [facility] Serum glucose measurement (m ass/volume)Ordered By: Dontrell Hernandez on 04-10-2025 Glucose [Mass/Vol] 117 mg/dL High 70-99 [facility] Serum or plasma calcium meche urement (mass/volume)Ordered By: Dontrell Hernandez on 04-10-2025 Calcium [Mass/Vol] 9.1 mg/dL 7.6-11.0 [facility] Serum or plasma urea nitroge n measurement (mass/volume)Ordered By: Dontrell Hernandez on 04-10-2025 Urea nitrogen [Mass/Vol] 16 mg/dL 4-19 [facility] Sodium levelOrdered By: marielos Hernandez on 04-10-2025 Sodium [Moles/Vol] 141 mmol/L 133-145 [facility] White blood cell (WBC) count Ordered By: Dontrell Hernandez on 04-10-2025 WBC (Bld) [#/Vol] 9.5 10*3/uL 4.4-11.0 [facility] Cardiology Visit Reporton Cardiology Visit Report [facility] [address] [place] [address] OFFICE VISIT Date of Service: 03/16/25 MR#: [id number] Acct: [id number] Name: CHERYL ABARCA Rep #: [id number] : 1935 Provider: NKECHI Duffy Age/Sex: 89/F Location: [facility] [place] Status: Signed HPI HPI History of Present Illness Details: Cheryl Abarca is an 89-year-old female who presents to office today for follow-up. She was evaluated at [facility] 12/27 - 12/30/2023 for congestive heart failure exacerbation. She was noted to be in atrial fibrillation at a rate of 120-140 bpm. Initial recommendation was to have her metoprolol increased. She converted to sinus rhythm prior to discharge. Her exacerbation was thought to be related to new onset atrial fibrillation. Echocardiogram demonstrated ejection fraction of 50% and stage III diastolic dysfunction. Left and right atrium were noted to be normal size, PASP was 38 mmHg. She presented to [facility] emergency room 01/02/2024 with concerns of tachycardia and her medications were adjusted. Patient saw her primary care physician 03/13/2025 for acute concerns of shortness of breath, dizziness and abnormal blood pressure. She reported home blood pressure reading of 205/100 at that time. Nursing staff obtained blood pressures of 174/70 and 170/70 that further improved to 124/83. EKG at her primary care physician's office that day demonstrated atrial flutter versus atrial fibrillation at a rate of 92 bpm. After consultation with storage receipt poster, primary care physician discontinued amlodipine and initiated metoprolol 50 mg XL daily Upon presentation today, patient reports she does not usually have direct associated symptoms when she is in atrial fibrillation. She wears a watch that notifies her when she goes in to atrial fibrillation. She reports being notified about 2x per week and this is usually at rest. She reports dizziness with positional changes. She reports fatigue and weakness that is chronic for about 13 years now described as low energy. She notices SOB at rest, in the middle of the night, and with activity such as stairs. Her SOB with activity has been ongoing for about 5 years now. She reports BPs this morning 180/110, 164/96, 158/105. Further ROS below. Intake Vital Signs 02/20/25 10:39 03/16/25 07:33 03/16/25 09:08 03/16/25 09:36 03/16/25 09:39 Height 5 ft 2 in 5 ft 2 in 5 ft 2 in Weight: 151 lb 157 lb BMI 27.6 28.7 BP 124/73 H 149/85 H 136/76 H 128/76 H 132/78 H Blood Pressure Location Lt brachial Lt brachial Lt brachial Lt brachial Lt brachial Position Sitting Sitting Supine Sitting Standing Respiration 16 18 Pulse 61 56 L Pulse Source Monitor Monitor Pulse Oximetry (%) 97 Intake Visit Reasons: PER [facility] CP/HIGH BP Anesthetic Assistant Required: No Is patient in pain?: No Allergies Sulfa (Sulfonamide Antibiotics) Allergy (Mild, Verified 02/20/25 10:42) Rash Medications ???Medication ???Instructions ???Recorded ???Confirmed ???Type losartan 100 mg tablet 100 mg PO DAILY blood pressure 11/1603/16/25 History simvastatin 20 mg tablet 20 mg PO QHS cholesterol 12/28/23 03/16/25 History buspirone 7.5 mg tablet 7.5 mg PO BID 04/12/24 03/16/25 Hi story calcium carbonate (Tums) 300 mg PO BID 04/12/24 03/16/25 Hi story venlafaxine 150 mg 150 mg PO QHS 04/12/24 03/16/25 Hi story capsule,extended release 24 hr furosemide 40 mg tablet 40 mg PO DAILY #90 TABLETS 4 03/16/25 Rx apixaban 5 mg tablet (Eliquis) 5 mg PO BID #180 TABLETS 12/29/24 03/16/25 Rx potassium chloride 20 mEq 20 meq PO DAILY #90 TABLETS 03/16/25 Rx tablet,extended release(part/cryst) (Klor-Con M) cholecalciferol (vitamin D3) 50 25 mcg PO QDAY 02/20/25 03/16/25 H istory mcg (2,000 unit) tablet latanoprost 0.005 % eye drops 1 drp ophthalmic (eye) QDAY 03/16/25 History metoprolol succinate 50 mg 50 mg PO QDAY 03/16/25 03/16/25 Hi story tablet,extended release 24 hr amiodarone 100 mg tablet 100 mg PO QDAY #90 tabs 03/27/25 0 03/27/25 Rx Have you fallen in the past year?: No Nurse's Note: patient's cuff left arm: 169/93, pulse:59 PFSH Medical History (Updated 03/27/25 @ 15:57 by NKECHI Duffy) HTN (hypertension), benign Paroxysmal atrial fibrillation Bradycardia Anxiety and depression Smoker Sleep apnea HTN (hypertension) Afib Surgical History History of tonsillectomy History of carpal tunnel release Family History Mother Hypertension Grandfather Hypertension Grandmother Hypertension Father Cancer Social History Smoking Status: Former sm (more content not included)... Normal [facility] CNOVon 03-13-2025 CNOV Office Visit (FAMWS ) CHERYL ABARCA ([id number]) 1935 F Date Time Provider Department 03/13/25 9:40 [facility] today, we recorded [...] using the bathroom and persisted afterward. - [place] dizzy when standing, sought relief by sitting [...] Date Acute systolic CHF (congestive heart failure) ([facility]) 01/04/2024 Echo 12/29/23. EF 50% Adjustment disorder with depressed mood 04/08/2005 Advance directive discussed with patient 12/15/2021 Discussed 11/2021 Carpal tunnel syndrome, bilateral 03/14/2020 Cervical radiculopathy 03/14/2020 Chronic bronchitis ([facility]) 05/31/2014 Chronic systolic CHF (congestive heart failure) ([facility]) 01/04/2024 Echo 12/29/23. EF 50% Common wart [...] Done: 12/15/2021 Paroxysmal atrial fibrillation (HCC) 01/04/2024 [facility] Primary osteoarthritis involving multiple joints 12/27/2023 Knee and R hip Right hip pain 12/19/2021 Sleep apnea 06/13/2013 mild sleep apnea. 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 PAST SURGICAL HISTORY OF Right 11/2024 right 2nd toe. PLC BREAST CLIP PERC Left breast TONSILLECTOMY PRIMARY/SECONDARY Tonsillectomy Family History FAMILY HISTORY Problem Relation [...] on file prior to visit. Social History SO (more content not included)... Normal [facility] [id number] 03-13-2025 ECG01 Ventricular Rate : 8 8 BPM QRS Duration : 136 ms Q-T Interval : 432 ms QTC Calculation(Bazett) : 522 ms Calculated R [place] : -21 degrees Calculated T [place] : 127 degrees ATRIAL FIBRILLATION / Atrial Tachycardia COMPLETE LEFT BUNDLE BRANCH BLOCK ABNORMAL ECG Confirmed by MD PERES QARAB ([id number]) on 03/14/2025 11:26:37 AM NAME : CHERYL ABARCA PID : [id number] : 1935 Gender : Female Race : ORD : Procedure Date : Mar 13 2025 09:05:34 Edit Date : Mar 14 2025 11:26:42 Diagnosis: ATRIAL FIBRILLATION / Atrial Tachycardia COMPLETE LEFT BUNDLE BRANCH BLOCK ABNORMAL ECG Confirmed by MD PERES QARAB ([id number]) on 03/14/2025 11:26:37 AM Test Reason : Location : 136 : [place] Overread By : MD PERES QARAB Edited By : MD PERES QARAB Referred By : Dionna Uriarte Acquired by : estephania oleary ma, Normal [facility] Anion gap in Serum or Plasma Ordered By: Yuri Ta on 02-20-2025 Anion gap [Moles/Vol] 12 [facility]L 5-[facility] BUN/creatinine ratioOrdered By: Yuri Ta on 02-20-2025 Urea nitrogen/Creatinine [Mass ratio] 14.8 mg/mg - [facility] Basic Metabolic Profile (BMP )on 02-20-2025 BUN/CRE 14.8 RATIO Normal - [facility] Comment on above: Performed By: #### L 501.9520, L500.2500 #### [facility] Laboratory [address] [place], [address] Calcium [Mass/Vol] 9.2 mg/dL Normal 7.6-11.0 [facility] Comment on above: Performed By: #### L 501.9520, L500.2500 #### [facility] [address] [place], [address] Chloride [Moles/Vol] 108 mmol/L Normal 98-108 [facility] Comment on above: Performed By: #### L 501.9520, L500.2500 #### [facility] [address] [place], [address] CO2 [Moles/Vol] 23.1 mmol/L Normal 21.0-32.0 [facility] Comment on above: Performed By: #### L 501.9520, L500.2500 #### [facility] [address] [place], [address] Creatinine [Mass/Vol] 1.01 mg/dL Normal 0.70-1.20 [facility] Comment on above: Performed By: #### L 501.9520, L500.2500 #### [facility] [address] [place], [address] GAP 12 Normal 5-15 [facility] Comment on above: Performed By: #### L 501.9520, L500.2500 #### [facility] [address] [place], [address] GFR/1.73 sq M.predicted among non-blacks MDRD (S/P/Bld) [Vol rate/Area] 54 mL/min/{1.73_m2} Low >60 [facility] Comment on above: Result Comment: mL/m in/1.73m2 CKD-EPI Creatinine Equation (2020) Performed By: #### L 501.9520, L500.2500 #### [facility] [address] [place], [address] Glucose [Mass/Vol] 140 mg/dL High 70-99 [facility] Comment on above: Performed By: #### L 501.9520, L500.2500 #### [facility] [address] [place], [address] Potassium [Moles/Vol] 4.5 mmol/L Normal 3.3-5.1 [facility] Comment on above: Performed By: #### L 501.9520, L500.2500 #### [facility] [address] [place], [address] Sodium [Moles/Vol] 142 mmol/L Normal 133-145 [facility] Comment on above: Performed By: #### L 501.9520, L500.2500 #### [facility] [address] [place], [address] Urea nitrogen [Mass/Vol] 15 mg/dL Normal 4-19 [facility] Comment on above: Performed By: #### L 501.9520, L500.2500 #### [facility] [address] [place], [address] Carbon dioxide, total [Moles /volume] in Central venous bloodOrdered By: Yuri Ta on 02-20-2025 CO2 [Moles/Vol] 23.1 mmol/L 21.0-32.0 [facility] Cardiology Visit Reporton Cardiology Visit Report [facility] [address] [place] [address] OFFICE VISIT Date of Service: 02/20/25 MR#: [id number] Acct: [id number] Name: CHERYL ABARCA Rep #: [id number] : 1935 Provider: Dr. Yuri Ta MD Age/Sex: 89/F Location: [facility] [place] Status: Signed HPI HPI History of Present Illness Details: This is an 89-year-old female who presents the office today for an office visit. She was evaluated [facility] from 12/28/2023 - 12/30/2023 for congestive heart failure exacerbation. She was noted to be in atrial fibrillation at rates 120-140 bpm. Initial recommendation was to have her metoprolol increased. She converted to sinus rhythm prior to discharge. Hospitalization on 12/28/2023 was thought to be related to new onset atrial fibrillation. Echocardiogram showed an ejection fraction of 50% and stage III diastolic dysfunction. Left and right atrium were noted to be normal size. PASP was 38 mmHg. She presented [facility] emergency room on 01/02/2024 for tachycardia. She was since evaluated her medications adjusted and she tells me that she is doing well. She denies chest, arm, jaw, or neck discomfort. She denies palpitations. She denies bilateral lower extremity edema. She denies claudication. She states resolved shortness of breath with activity. She denies shortness of breath at rest, orthopnea, or PND. She denies chronic cough. She denies significant, sudden weight gain. She denies lightheadedness, dizziness, near-syncope, or syncope. She denies blood in urine, blood in stool, or epistaxis. He denies fever with chills. She denies myalgia. She states fatigue. Her exercise level has remained stable. Intake Vital Signs 01/04/24 10:04 01/21/24 13:48 04/12/24 09:34 02/20/25 10:39 Height 5 ft 2 in 5 ft 2 in 5 ft 2 in 5 ft 2 in Weight: 150 lb 151 lb BMI 27.4 27.6 BP 135/74 H 124/73 H Blood Pressure Location Lt brachial Lt brachial Position Sitting Sitting Respiration 16 16 Pulse 45 L 61 Pulse Source NIBP Monitor Intake Visit Reasons: 1 Y FU Anesthetic Assistant Required: No Accompanied by: Significant Other Is patient in pain?: No Allergies Sulfa (Sulfonamide Antibiotics) Allergy (Mild, Verified 02/20/25 10:42) Rash Medications ???Medication ???Instructions ???Recorded ???Confirmed ???Type losartan 100 mg tablet 100 mg PO DAILY blood pressure 11/1602/20/25 History simvastatin 20 mg tablet 20 mg PO QHS cholesterol 12/28/23 02/20/25 History buspirone 7.5 mg tablet 7.5 mg PO BID 04/12/24 02/20/25 Hi story calcium carbonate (Tums) 300 mg PO BID 04/12/24 02/20/25 Hi story venlafaxine 150 mg 150 mg PO QHS 04/12/24 02/20/25 Hi story capsule,extended release 24 hr furosemide 40 mg tablet 40 mg PO DAILY #90 TABLETS 4 02/20/25 Rx amiodarone 200 mg tablet 200 mg PO QDAY #90 tabs 10/04/24 0 02/20/25 Rx amlodipine 5 mg tablet 5 mg PO DAILY blood pressure #90 0 10/17/24 02/20/25 Rx tabs apixaban 5 mg tablet (Eliquis) 5 mg PO BID #180 TABLETS 12/29/24 02/20/25 Rx potassium chloride 20 mEq 20 meq PO DAILY #90 TABLETS 02/20/25 Rx tablet,extended release(part/cryst) (Klor-Con M) cholecalciferol (vitamin D3) 50 25 mcg PO QDAY 02/20/25 02/20/25 H istory mcg (2,000 unit) tablet Have you fallen in the past year?: No PFSH Medical History Paroxysmal atrial fibrillation Bradycardia HTN (hypertension), benign Anxiety and depression Smoker Sleep apnea HTN (hypertension) Afib Surgical History History of tonsillectomy History of carpal tunnel release Family History Mother Hypertension Grandfather Hypertension Grandmother Hypertension Father Cancer Social History Smoking Status: Former smoker how long ago did patient quit smokin12/30/2023 alcohol intake: current alcohol intake frequency: holidays/special occasions only substance use type: does not use caffeine: No ROS Const Const: Positive for fatigue; Negative for weakness, headache(s), daytime sleepiness or difficulty sleeping ENT ENT: Negative for headache(s), dizziness or Nosebleed/epistaxis Cardio Chest Pain: No Palpitations: No Edema: None Resp Respiratory: Negative for SOB with activity, SOB at rest, SOB orthopnea SOB lying down or Cough GI GI: Negative nausea, vomiting or heartburn Neuro Neuro: Negative for dizziness, lightheadedness, near syncope, headache(s) or weakness Endo Endo: Positive for fatigue Cardiology Exam Const Appearance: cooperative, healthy appearing, comfortable and no acute distress (more content not included)... Normal [facility] Chloride assayOrdered By: Oskar Ta on 02-20-2025 Chloride [Moles/Vol] 108 mmol/L 98-108 [facility] Glomerular filtration rate ( GFR) estimation/1.73 sq m using serum, plasma, or whole bOrdered By: Yuri Ta on 02-20-2025 GFR/1.73 sq M.predicted among non-blacks MDRD (S/P/Bld) [Vol rate/Area] 54 mL/min/{1.73_m2} Low >60 [facility] Comment on above: mL/min/1.73m2 CKD-EP I Creatinine Equation (2020) Potassium measurement (mass/ volume)Ordered By: Yuri Ta on 02-20-2025 Potassium (Unsp spec) [Mass/Vol] 4.5 mmol/L 3.3-5.1 [facility] Serum creatinine measurement (mass/volume)Ordered By: Yuri Ta on 02-20-2025 Creatinine [Mass/Vol] 1.01 mg/dL 0.70-1.20 [facility] Serum glucose measurement (m ass/volume)Ordered By: Yuri Ta on 02-20-2025 Glucose [Mass/Vol] 140 mg/dL High 70-99 [facility] Serum or plasma calcium meche urement (mass/volume)Ordered By: Yuri Ta on 02-20-2025 Calcium [Mass/Vol] 9.2 mg/dL 7.6-11.0 [facility] Serum or plasma urea nitroge n measurement (mass/volume)Ordered By: Yuri Ta on 02-20-2025 Urea nitrogen [Mass/Vol] 15 mg/dL 4-19 [facility] Sodium levelOrdered By: Jael Ta on 02-20-2025 Sodium [Moles/Vol] 142 mmol/L 133-145 [facility] TSH DL <= 0.005 mIU/L QnOrde red By: Yuri Ta on 02-20-2025 TSH Qn 2.480 uIU/mL 0.300-4.200 [facility] Thyroid Stim Hormone (TSH)on 02-20-2025 TSH 2.480 uIU/mL Normal 0.300-4.200 [facility] Comment on above: Performed By: #### L 501.9520, L500.2500 #### [facility] Laboratory [address] [place], [place] [address], [address] CNNURSEon 02-07-2025 [facility] Nurse Visit (FAMPWS) CHERYL ABARCA ([id number]) 1935 F Date Time Provider Department 02/07/25 9:15 AM [place] NURSE FAMPWS During your visit today, we [...] Date: 02/07/2025 Noted Allergy Reaction BACTRIM DS (SULFAMETHOXAZOLE-TRI M*01/04/2008 2 - Rash Date Reviewed: 02/05/2025 Reviewed [...] management [Z79.899] 04/28/2021 Living will on file [EKU0857] 12/15/2021 Advance directive discussed with patient [Z71.8*12/15/2021 Medicare annual wellness visit, subsequent [Z00*12/15/2021 Acute pain of right shoulder [M25.511] 12/19/2021 12/27/2023 Right hip pain [M25.551] 12/19/2021 Acute pain of both knees [M25.561, M25.562] 12/30/2022 12/27/2023 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 Paroxysmal atrial fibrillation (HCC) [I48.0] 01/04/2024 Chronic systolic CHF (congestive heart failure)*01/04/2024 [facility] current use of anticoagulant therapy *01/04/2024 LIZZY (generalized anxiety disorder) [F41.1] 02/01/2024 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] 01/08/2025 Neoplasm of uncertain behavior of skin of upper*01/08/2025 01/30/2025 Common wart [B07.8] 01/30/2025 Encounter Status:Closed by ANA LEIGH on 02/07/25 [facility] Artur 02-05-2025 CNOV Office Visit (WOUCA) CHERYL ABARCA ([id number]) 1935 F Date Time Provider Department 02/05/25 11:45 AM OMARI NAVAS During your visit today, we recorded the following information about you: Temperature Pulse Respiration Blood pressure 98.5 degrees 65/minute 18/minute 128/78 Weight 71.7 kg Omari Navas APRN.JIMBO 02/05/2025 12:24 PM Signed [facility] [...] Done: 12/15/2021 Paroxysmal atrial fibrillation (HCC) 01/04/2024 [facility] Primary osteoarthritis involving multiple joints 12/27/2023 Knee and R hip Right hip pain 12/19/2021 Sleep apnea 06/13/2013 mild sleep apnea. 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 PAST SURGICAL HISTORY OF Right 11/2024 right 2nd toe. PLC BREAST CLIP PERC Left breast TONSILLECTOMY PRIMARY/SECONDARY Tonsillectomy ALLERGIES Bactrim Ds [Sulfamethoxazole-Tri methoprim] MEDICATIONS ketoconazole (NIZORAL) 2 % shampoo Apply [...] She is not in acute distress. Appearance: Sh (more content not included)... [facility] Pathology biopsy report Abebe (Tiss)Ordered By: Hugh Lin on 01-29-2025 Case Report Surgical Pathology Report Case: [id number] Authorizing Provider: Carl Rendon MD Collected: 01/25/2025 10:52 AM Ordering Location: [facility] Received: 01/25/2025 02:49 PM Pathologist: Hugh iLn MD Specimen: Skin, Excision [facility] Work Phone: Clinical History [id number] b PSeEzWaUyMgShNiHqf9LH CvsdV9Nrq6XRLdFQtejM8 qBXKxWWeeE0dtocBulAFx KXBtZFy2sU9qgWzmdW1qF vWzRvPtOLSdAx6cfc8ihV HjJEIpz64ooXUyuLR8aAJ oivGvGLLxwhIiGNMooC9j JSMwSkUON4QqrlSiRcIXY KYav2GdYjuaMJvjwvFzyJ FyIH0= [facility] Work Phone: Disclaimer f7rqyLLmCYJph6hcZLQs b GFuZzEwMzNcZnRuYmpcdW MxIHtccnRmMVxlcGljMTE iSIHiq4jlc9nadAYzEVBc n1rab3SntWYsoZVoWKaoq QVcvhKota63uZN3gU16DG 5tJTAaSrL5RSSrxqU9Ptl 5MGLsMCJuvRXeM462e0pq m8wcjsZnqWG8FAOyWYUyP 8MgDW3mFRTecRKiK55ktO CuGKW8GMCtMJUlyMSmDWW qLUE8LSRxlQJmW3lhLCIs EU5vfiaaXGwfYKrjXMHnv TE9WYVtqVPiU2GlULSzWE gxHLHstsf6FnQoMi5ocFA xcUwjMGgnV5ioiW7lSgT2 PSvkJ6wkpO9xPYo4MFhuF ZYhdDP1mjE0BYZpfPKxH6 VfrG1gPDUdPM8zvkh8h0q tZEN8VThbEKAtMiT3usJ2 NDBccGFyZFxwbGFpblxiX GTjVSPvT5XpXNlaIz8fLM UvqwgxJLW8DAbcrUYdYZV ey1YkSEmBPKckXAnoE2fo fP3iemjfsTSkDLNxMWEuE TJCDGZlp0FzVA2jJBDeyR KrDSP4XWLvv6InN5Swc4X noV2deI1rpDyqcZ5zuIHa vAXjvIkasF7csY1gPnh7e 4Ugi8CsgoDuMBNyKSDumD TkpC6hCS1hDiOqyc6ayOR 5DKf4IbRzJNs2BUBcm28h mWAzfQUtuLO3NUUiGJShR GRldGVybWluZWQgYnkgdG nyENCzjyQizr0dfakwmDC nu1WzoT9jsUU0iDQfhN9u D4eycxLrZR4mSDZrbP7iK ydzIFJvYmVydCBKLiBUb2 6lcRSiAPQzmZvruR6irUH ntaBjFUMeg9EphU6yrBZI TTCtG9uaLHSKLMIdtaZxA S15WLjKQQalIAOfdRR2px DSf3UbyTClwDnkWPwnc22 iQ6AuEPLceHALp2KbdWIe wUtiCsffhqaqFLHNDLP4s 23cGN2iaVq5HPlzTW5pnf O9YLszh4MllLIlHGBTmtZ mKR4uXop2FCVeGDNmaVXv oWBPFO08TRUzJG5durVvu iQYZCRjkSeqFn1kuKdkGT 4nnRp6BVfzLJ0pUSJssE2 oAHtoc9PgfKQoILTxlbQx AL6gaf5wrcByp37fhWI9I V18KDtoiMugK4zCYPInXD W6rXLfwORgzXXcDC5aLDR rnnGee6DnCI6wXTRmTBKn TTLeq3CbBD1nnRDbw1Dnn ZB7WBQfBXOdLYJeOMQgLR Ysr2MhSKZzxp54MCXrAgj qlRngQYZKCS4uVnAjSYfB UGqmHUSoG3GjMGWiSZJ8v dOxreMPMSyXWNObWNI3MO giHhahYSF4qtFgCWAeh2X rLUroL3gxE63fsGxymOy2 mKA4QHY1vR0wQsLPeJNgG EZ7MPQ1lyAzxaYgaDBvTA Pft6CdZ8bvjgotSJuqpLV xcP2eTJQfDJCsJDPqTQEh r8YiGCFze3SjOlPzlgSnT TJdASSiWUQsuH15MBB6oR zqpTrhvlTtJU9mQCBzdwW yTCHaTKJpeY8pVJ0uzORc iyXrQF7nSY7uY8N9tXNeV IMhhnAsq3hjPCD4OVikPZ FwcHJvcHJpYXRlbHkuXHB hcn19 [facility] Work Phone: FINAL DIAGNOSIS b1jktEFgPIShmZFdBZLn N hzuafRdRRNzoNDhP8Flov djMNiuCW8wED1ozGaoeSF hxQRhHWQsRyDtj3qfb250 xXMbr0fjTBUUynwiaTp0g GscZ29sd8B7DsfuQ80jaP OzFFR0GTCaFLSdoWHbZXM sZYY0FCAalPJaL7flCLCv YL1eplqgNAjeMGbeIDTtr TX9AZMbhQYyK9EzKBXoLR imEGHshmc9RnLfPt5uhBZ yeTcyMFxwYXJkXHBsYWlu LKZyBoCfCD1dM0qtqtbou UGkuNZ4kFHkmyGpLPZrlw RhSINspRpkVNorwDPvj68 9QTGairfpaiKyz2nqRJMt dpQ0P7CcaoNkL1TvnWXpS ZEkkpxnZCEcP7SZR24UVC S8ZiK0IuF7MYgvWHJjrMX yZFxwYXJ9 [facility] Work Phone: Gross Description a0dlaVBoAKJxvUCUKGPj M PPiZC2kpSeveVq8fOzbVC DeorJ5zWSnAGpae4ubBMF 4v0whrrMTQqqgLNFzXT0l DVpoPYStDR8qDpOhJZBoQ mYxXHBhcGVydzEyMjQwXH OovVHidRN1PKQoIY0ajih rCMqcRQylROCdpuF0MCWv bKSiP3IqCXKcFT5xoypkV QN3RNESSpvdGc8lnVHljN tcZjFcZmNoYXJzZXQwXGZ qc8fuwlUEvnjhtGj0fH6D FWBdZ3IuHT2To1irVJAei TKhCWI1QYwni8pkTJvsQZ U7ALMrNXNeOBBaZG3KRnX tGAt5LbVcUQkqMsV4GIk4 JNAUPAXqNYSdChq2BownX Ol8HIwaVXqcdKFzCULjXN TsSIXfXMkkwuJ5m9vdRNQ mgROaORJ1PPvyc8cuDYzi PQH0VDDzByCnRHHpIS3BA jEiMRa0EmFjJOutQxS9GY h3WPCPOsNwFwIzUtSiYoG tEDMqBAi1UKw0OZbCUwTk PeKlAcF8JRItDZI2OVJ4J iBcXHQgMiBcXHNzIDMgXF gviWBwCO3jjEtwMGQsDA0 WRYRvJZzdKALyTjPoVW7t Z1hzvpkfZIvppCRnw67ot OUcR9otJcMeItbjVYXyVK pccGFyZCANClxwbGFpblx sdHJjaFxmczIyXGVwaWNO JOC5XS4aGINEVvjyqUGgQ XIgDQpcZnMyMCBSZWNlaX LuJVPagpYzf7QmSNefacL zjqNbgtC7wd7twVRnhUYj PQBffDizyJeiCFgyk2Bdy BHedFHtLkLgv0prUNHnAM BzdWJjdXRhbmVvdXMgdGl py7EbDV5kPMU9birlPoIi LjQgeCAwLjggeCAwLjYgY 75kMVObZQCpc0fgGFM3xg GxP2ZeMVXmd17seTIjbRC zIGFuIGlycmVndWxhciB0 NG3ti6jddBZzHRekpqA4A WQgYXJlYSBtZWFzdXJpbm acWO64IZamOD51FWNpVJS xmfFySBl6XH1ypwI5pqDm b9LgYN2dykilxyYlDIPsQ AZqCJZwfG7cXLLvDICayz pnERKgoIMrlw1uFJxrQEI oMMKwoRJzKRuwMVMrD4Cb p79hCLPfxjGabB87EIgjl XQarSMxaQL5UEIwJPHaXj 0eiI32xqjeQMMuiOmzcor oJGSgrqAfOHiwKAEpBJ5n FDWpp4M4BJ0xMETcfiOQX rdiKGXsJVyUnb1wvjXipT RwiT5llDnhesOgKWKzs4L jHLJeREFkF9pskyNpGP0b BFOnvK0jVcbuQLTwWOOQb UNqfTEuOZPlQiwwA8gbsu PnJO6dPVJLPTA5ASE0WXw oHNItKRzyzSCpEU9JQTLo PbXxIBHtL1doHELaQN5GY qKSUVB6RnUuIyEzFoEdJB F7SoWdFJ1ARnosfEbnIxR lyRGzMxA2FWSstNIqNIA9 VY6wvCepVPRvI3ReU3Gms nW7HNUbopGYOvflJYExLW 6SGDIfFHaaEZ4NrD== [facility] Work Phone: Performing Lab y2kdyQQoXHDyqCIrYQEz M faldeOtDMKzaNEzC0Iesb asXRxaDV6wVF7kvAgaeRO ftQCuJMLsEuVfm4bsf282 cWPlb2kfATUGkqybuZp7u HvqL66pe4Z6UeqxN85szV KmDCC7QRHdIRLziVLuJRC hZBH5QTRagEKtY4aaFGUl HN5acmhtQAsmKEqdIKBid PP9IALaxUAyX4XuZHCtYG kgZOKphwt8TeTxVg8dwBL eyYdyPPyqR5eseF2qDdZ7 VPydN6fmsO9iUMu2SBbiN BZfgKW6gcR4KVVfyEOsW9 KniH5kXPUwAG1jtkt5i7i wKBC0RIxzAELqGeY4rkA8 NDBccGFyZFxwbGFpblxmc oOyXAUkFBgnz4S4iERlaU 28HXXtqmT9MRMio06raHP yBt2vqZIgARD7XnHZyEF6 RMumoaQgK3ugoajfCU3kd R7gE5NdvPPeXBkdf8UcyE GuCXcvEo3iRRPxibuwNOr 0JSWpOOAsvYdtCZB7XY51 ZSwgRGVzayBMMjEsIENsZ LXdaQNvVEYSFET5OMD5LA JzAVWBXEPySJQ1RQN4MQU wOTRccGFyIFxwYXIgTGFi b6OjyY6fcWSRrPUpG8Cku gnpU4EutGKhJBithfFfS7 tzLCBNRFxwYXJ9 [facility] Work Phone: [facility] Work Phone: ANIBALOVon 01-25-2025 CNOV Office Visit (FAMPWS ) CHERYL ABARCA ([id number]) 1935 F Date Time Provider Department 01/25/25 9:00 AM CARL RENDON During your visit today, we recorded the following information about you: Pulse Respiration Blood pressure Weight 56/minute 16/minute 130/76 71.1 kg Carl Rendon MD 01/30/2025 11:24 PM Signed Chief Complaint Patient presents with: Procedure: Lesion removal [facility] Cheryl Abarca is a 89 year old [...] 05/31/2014 Chronic systolic CHF (congestive heart failure) ([facility]) 01/04/2024 Echo 12/29/23. EF 50% DDD (degenerative [...] SURGICAL HISTORY Procedure Laterality Date ADENOIDECTOMY PRIMARY Adenoidectomy COLONOSCOPY FLX DX W/COLLJ SPEC WHEN PFRMD 02/08/2013 Colonoscopy COLONOSCOPY W/BIOPSY SINGLE/MULTIPLE 01/02/2002 Repeat in ECHO 10/29/2023 EGD 08/15/2004 PAST SURGICAL HISTORY OF RIGHT NEEDLE BIOPSY, Breast PAST SURGICAL HISTORY OF 11/23/2006 MOHS-PRECANCEROUS AREA ON LEFT EYEBROW. PAST SURGICAL HISTORY OF Right 11/2024 right 2nd toe. PLC BREAST CLIP PERC Left breast TONSILLECTOMY PRIMARY/SECONDARY Tonsillectomy Family History FAMILY HISTORY Problem Relation [...] Adult) Pulse (!) 56 Resp 16 Wt (more content not included)... [facility] Pathology biopsy report Abebe (Tiss)on 01-25-2025 AP DISCLAIMER [facility] Comment on above: Order Comment: Speci men Type: TISSUE SPECIMENOrdering Facility: [facility] Address: [address] [place] [address] Result Comment: Missy goodman Developed Test (LDT) Disclaimer: Performance characteristics of immunohistochemical, immunofluorescent, and chromogenic in-situ hybridization tests have been determined by the performing laboratory within [facility]'s [facility] Pathology and Laboratory Medicine Department ([facility], [facility], [facility], [facility], [facility], or [facility]) in a manner consistent with CLIA requirements. One or more of these tests may not have been cleared or approved by the FDA. [facility] is regulated under CLIA as qualified to perform high-complexity testing. These tests are used for clinical purposes. These should not be regarded as investigational or for research. Positive and negative controls stain appropriately. Performed By: #### 6 6121-5 ####[facility]IA [id number] [place] [address] [place] CASE REPORT [facility] Comment on above: Order Comment: Speci men Type: TISSUE SPECIMENOrdering Facility: [facility] Address: [address] [place] [address] Result Comment: Surg [facility] Pathology Report Case: [id number] Authorizing Provider: Carl Rendon MD Collected: 01/25/2025 10:52 AM Ordering Location: [facility] Received: 01/25/2025 02:49 PM Pathologist: Hugh Lin MD Specimen: Skin, Excision Performed By: #### 6 6121-5 ####[facility] LABCLIA [id number] [place] [address] [place] CLINICAL HISTORY abnormal lesion left upper lateral arm. R/O SCC vs BCC possible wart [facility] Comment on above: Order Comment: Speci men Type: TISSUE SPECIMENOrdering Facility: [facility] Address: [address] [place] [address] Performed By: #### 6 6121-5 ####[facility] LABCLIA [id number] [address] [address] [place] FINAL DIAGNOSIS [facility] Comment on above: Order Comment: Speci men Type: TISSUE SPECIMENOrdering Facility: [facility] Address: [address] [place] [address] Result Comment: Nabila tariq, left upper lateral arm, excision: - Verruca vulgaris. SDElaina/EROS 01/29/25 at 1402 EDT Performed By: #### 6 6121-5 ####[facility] LABCLIA [id number] [address] OF [facility] FINAL PERFORMING LAB [facility] Comment on above: Order Comment: Speci men Type: TISSUE SPECIMENOrdering Facility: [facility] Address: [address] [place] [address] Result Comment: Diag nostic interpretation performed at: [facility], [address] [place] [address] CLIA# [id number] Metal Roofing Mechanic: Jaydon Lockett MD Performed By: #### 6 6121-5 ####[facility] LABCLIA [id number] [address] GROSS DESCRIPTION [facility] Comment on above: Order Comment: Speci men Type: TISSUE SPECIMENOrdering Facility: [facility] Address: [address] [place] [address] Result Comment: Benigno. Criselda tariq, Excision Received in formalin is an unoriented elliptical segment of skin and subcutaneous tissue measuring 1.4 x 0.8 x 0.6 cm. The skin surface demonstrates an irregular loving-white elevated area measuring 0.9 x 0.8 cm, and extends to both margins. The margins are inked black. The specimen is sectioned and totally submitted as follows: A1 tips, A2 remainder of tissue. [place] [address] FFS 01/25/2025 11:32 PM Performed By: #### 6 6121-5 ####[facility] LABCLIA [id number] [address] [place] CNOVon 01-08-2025 CNOV Office Visit (FAMPWS ) CHERYL ABARCA ([id number]) 1935 F Date Time Provider Department 01/08/25 8:00 AM CARL RENDON FAMPWS During your visit today, we recorded [...] MD as PCP - General (Family Medicine) Noreen Camacho APRN.CNP as Referral Management Liaison (Family Medicine) Dionna Uriarte PA-C as Referral Management Liaison (Family Medicine) [facility]: cardio Medical/Family history review Reviewed and updated problem list, medical/surgical/fami ly/social history, medications, and allergies. Opioid use review [...] 60 Resp 16 Ht 160 cm (5' 3") Wt 68.5 kg (151 lb) SpO2 96% BMI 26.75 kg/m? Vision Screening: Follows with optometry/ophthalmolo gy Assessment/Plan Medicare annual wellness visit, subsequent (Z00.00) [...] [facility]. She is uncertain about the outcome of the procedure and has a follow-up appointment with a different video game developer due to Dr. Seth's relocation to [place]. She also has a bunion on the [...] is currently living in independent living at [place] with her , who has memory problems. She is responsible for managing his medications and has concerns about his ability to live independently if she were to pass away. She has (more content not included)... [facility] CBC W Auto Differential pane l (Bld)on 01-06-2025 Basophils (Bld) [#/Vol] 0.04 10*3/uL Normal <0.11 [facility] Comment on above: Order Comment: Speci men Type: BLOOD SPECIMENOrdering Facility: [facility] Address: [address] [place] [address] Performed By: #### 5 7021-8 ####[facility]IA [id number] [place] [address] [place] Basophils/100 WBC (Bld) 0.6 % Normal [facility] Comment on above: Order Comment: Charlesi clementina Type: BLOOD SPECIMENOrdering Facility: [facility] Address: [address] [place] [address] Performed By: #### 5 7021-8 ####[facility] [id number] [place] [address] [place] Differential cell count method Nom (Bld) Auto [facility] Comment on above: Order Comment: Speci men Type: BLOOD SPECIMENOrdering Facility: [facility] Address: [address] [place] [address] Performed By: #### 5 7021-8 ####[facility]IA [id number] [place] [address] [place] Eosinophils (Bld) [#/Vol] 0.15 10*3/uL Normal <0.46 [facility] Comment on above: Order Comment: Speci men Type: BLOOD SPECIMENOrdering Facility: [facility] Address: [address] [place] [address] Performed By: #### 5 7021-8 ####[facility] LABCLIA [id number] [place] [id number] [place] Eosinophils/100 WBC (Bld) 2.1 % [facility] Comment on above: Order Comment: Speci men Type: BLOOD SPECIMENOrdering Facility: [facility] Address: [address] [place] [address] Performed By: #### 5 7021-8 ####[facility] [id number] [place] [address] [place] Erythrocyte distribution width (RBC) [Ratio] 13.6 % Normal 11.5-15.0 [facility] Comment on above: Order Comment: Speci men Type: BLOOD SPECIMENOrdering Facility: [facility] Address: [address] [place] [address] Performed By: #### 5 7021-8 ####[facility] [id number] [place] [address] [place] Hematocrit (Bld) [Volume fraction] 44.7 % Normal 36.0-46.0 [facility] Comment on above: Order Comment: Speci men Type: BLOOD SPECIMENOrdering Facility: [facility] Address: [address] [place] [address] Performed By: #### 5 7021-8 ####[facility] [id number] [place] [id number] [place] Hemoglobin (Bld) [Mass/Vol] 14.9 g/dL Normal 11.5-15.5 [facility] Comment on above: Order Comment: Speci men Type: BLOOD SPECIMENOrdering Facility: [facility] Address: [address] [place] [address] Performed By: #### 5 7021-8 ####[facility]CL[facility] [id number] [place] [address] [place] Immature granulocytes (Bld) [#/Vol] 0.03 10*3/uL Normal <0.10 [facility] Comment on above: Order Comment: Speci men Type: BLOOD SPECIMENOrdering Facility: [facility] Address: [address] [place] [address] Performed By: #### 5 7021-8 ####[facility]CL[facility] [id number] [place] [address] [place] Immature granulocytes/100 WBC (Bld) 0.4 % [facility] Comment on above: Order Comment: Speci men Type: BLOOD SPECIMENOrdering Facility: [facility] Address: [address] [place] [address] Performed By: #### 5 7021-8 ####[facility]CLIA [id number] [place] [address] [place] Lymphocytes (Bld) [#/Vol] 1.15 10*3/uL Normal 1.00-4.00 [facility] Comment on above: Order Comment: Speci men Type: BLOOD SPECIMENOrdering Facility: [facility] Address: [address] [place] [address] Performed By: #### 5 7021-8 ####[facility]CLIA [id number] [place] [address] [place] Lymphocytes/100 WBC (Bld) 16.4 % [facility] Comment on above: Order Comment: Speci men Type: BLOOD SPECIMENOrdering Facility: [facility] Address: [address] [place] [address] Performed By: #### 5 7021-8 ####[facility]CLIA [id number] [place] [address] [place] MCH (RBC) [Entitic mass] 31.2 pg Normal 26.0-34.0 [facility] Comment on above: Order Comment: Speci men Type: BLOOD SPECIMENOrdering Facility: [facility] Address: [address] [place] [address] Performed By: #### 5 7021-8 ####[facility]CLIA [id number] [place] [address] [place] MCHC (RBC) [Mass/Vol] 33.3 g/dL Normal 30.5-36.0 [facility] Comment on above: Order Comment: Speci men Type: BLOOD SPECIMENOrdering Facility: [facility] Address: [address] [place] [address] Performed By: #### 5 7021-8 ####[facility] LABIA [id number] [place] [address] [place] MCV (RBC) [Entitic vol] 93.5 fL Normal 80.0-100.0 [facility] Comment on above: Order Comment: Speci men Type: BLOOD SPECIMENOrdering Facility: [facility] Address: [address] [place] [address] Performed By: #### 5 7021-8 ####[facility] LABIA [id number] [place] [address] [place] Monocytes (Bld) [#/Vol] 0.39 10*3/uL Normal <0.87 [facility] Comment on above: Order Comment: Speci men Type: BLOOD SPECIMENOrdering Facility: [facility] Address: [address] [place] [address] Performed By: #### 5 7021-8 ####[facility] LABIA [id number] [place] [address] [place] Monocytes/100 WBC (Bld) 5.6 % Normal C [facility] Comment on above: Order Comment: Speci men Type: BLOOD SPECIMENOrdering Facility: [facility] Address: [address] [place] [address] Performed By: #### 5 7021-8 ####[facility] LABCLIA [id number] [place] [address] [place] Neutrophils (Bld) [#/Vol] 5.24 10*3/uL Normal 1.45-7.50 [facility] Comment on above: Order Comment: Speci men Type: BLOOD SPECIMENOrdering Facility: [facility] Address: [address] [place] [address] Performed By: #### 5 7021-8 ####[facility] LABCLIA [id number] [place] [address] [place] Neutrophils/100 WBC (Bld) 74.9 % Normal [facility] Comment on above: Order Comment: Speci men Type: BLOOD SPECIMENOrdering Facility: [facility] Address: [address] [place] [address] Performed By: #### 5 7021-8 ####[facility] LABCLIA [id number] [place] [address] [place] Nucleated RBC (Bld) [#/Vol] 10*3/uL Normal <0.01 [facility] Comment on above: Order Comment: Speci men Type: BLOOD SPECIMENOrdering Facility: [facility] Address: [address] [place] [address] Performed By: #### 5 7021-8 ####[facility] LABCLIA [id number] [place] [address] [place] Nucleated RBC/100 WBC (Bld) [Ratio] 0.0 /100 WBC Normal [facility] Comment on above: Order Comment: Speci men Type: BLOOD SPECIMENOrdering Facility: [facility] Address: [address] [place] [address] Performed By: #### 5 7021-8 ####[facility] LABCLIA [id number] [place] [address] [place] Platelet mean volume (Bld) [Entitic vol] 10.3 fL Normal 9.0-12.7 [facility] Comment on above: Order Comment: Speci men Type: BLOOD SPECIMENOrdering Facility: [facility] Address: [address] [place] [address] Performed By: #### 5 7021-8 ####[facility] LABCLIA [id number] [address] [address] [place] Platelets (Bld) [#/Vol] 262 10*3/uL Normal 150-400 [facility] Comment on above: Order Comment: Speci men Type: BLOOD SPECIMENOrdering Facility: [facility] Address: [address] [place], [place] [address] Performed By: #### 5 7021-8 ####[facility] LABCLIA [id number] [place] [id number] [place] RBC (Bld) [#/Vol] 4.78 10*6/uL Normal 3.90-5.20 [facility] Comment on above: Order Comment: Speci men Type: BLOOD SPECIMENOrdering Facility: [facility] Address: [address] [place] [address] Performed By: #### 5 7021-8 ####[facility] LABCLIA [id number] [address] [address] [place] WBC (Bld) [#/Vol] 7.00 10*3/uL Normal 3.70-11.00 [facility] Comment on above: Order Comment: Speci men Type: BLOOD SPECIMENOrdering Facility: [facility] Address: [address] [place] [address] Performed By: #### 5 7021-8 ####[facility] LABCLIA [id number] [address] [address] [place] Comprehensive metabolic 2000 panelon 01-06-2025 Albumin [Mass/Vol] 4.3 g/dL Normal 3.9-4.[address] [facility] Comment on above: Order Comment: Speci men Type: BLOOD SPECIMENOrdering Facility: [facility] Address: [address] [place] [id number] Performed By: #### L IPNF, ####[facility] LABCLIA [id number] [address] [address] [place] ALP [Catalytic activity/Vol] 72 U/L Normal 34-123 [facility] Comment on above: Order Comment: Speci men Type: BLOOD SPECIMENOrdering Facility: [facility] Address: [address] [place], [place] [address] Performed By: #### L IPNF, ####[facility] LABCLIA [id number] [place] [address] [place] ALT [Catalytic activity/Vol] 21 U/L Normal 7-38 [facility] Comment on above: Order Comment: Speci men Type: BLOOD SPECIMENOrdering Facility: [facility] Address: [address] [place] [address] Performed By: #### L IPNF, ####[facility] LABCLIA [id number] [place] [address] [place] Anion gap [Moles/Vol] 13 mmol/L Normal 8-15 [facility] Comment on above: Order Comment: Speci men Type: BLOOD SPECIMENOrdering Facility: [facility] Address: [address] [place], [place] [id number] Performed By: #### L IPNF, ####[facility] LABCLIA [id number] [place] [id number] [place] AST [Catalytic activity/Vol] 20 U/L Normal 13-35 [facility] Comment on above: Order Comment: Speci men Type: BLOOD SPECIMENOrdering Facility: [facility] Address: [address] [place], [place] [id number] Performed By: #### L IPNF, ####[facility] LABCLIA [id number] [address] [address] [place] Bilirubin [Mass/Vol] 0.5 mg/dL Normal 0.2-1.3 [facility] Comment on above: Order Comment: Speci men Type: BLOOD SPECIMENOrdering Facility: [facility] Address: [address] [place] [address] Performed By: #### L IPNF, 22582-6 ####[facility] LABCLIA [id number] [place] [id number] [place] Calcium [Mass/Vol] 9.6 mg/dL Normal 8.5-10.[address] [facility] Comment on above: Order Comment: Speci men Type: BLOOD SPECIMENOrdering Facility: [facility] Address: [address] [place] [address] Performed By: #### L IPNF, 10818-2 ####[facility] LABCLIA [id number] [place] [id number] [place] Chloride [Moles/Vol] 107 mmol/L Normal 98-107 [facility] Comment on above: Order Comment: Speci men Type: BLOOD SPECIMENOrdering Facility: [facility] Address: [address] [place] [address] Performed By: #### L IPNF, 90177-5 ####[facility] LABCLIA [id number] [place] [id number] [place] CO2 [Moles/Vol] 23 mmol/L Normal 22-30 [facility] Comment on above: Order Comment: Speci men Type: BLOOD SPECIMENOrdering Facility: [facility] Address: [address] [place] [address] Performed By: #### L IPNF, 75183-0 ####[facility] LABCLIA [id number] [place] [id number] [place] Creatinine [Mass/Vol] 0.95 mg/dL Normal 0.58-0.96 [facility] Comment on above: Order Comment: Brandyn mcrae Type: BLOOD SPECIMENOrdering Facility: [facility] Address: [address] [place] [address] Performed By: #### L IPNF, 18630-6 ####[facility] LABCLIA [id number] [place] [address] [place] Creatinine and Glomerular filtration rate.predicted panel (S/P/Bld) 58 mL/min/1.73m??? Low >=60 [facility] Comment on above: Order Comment: Brandyn mcrae Type: BLOOD SPECIMENOrdering Facility: [facility] Address: [address] [place] [address] Result Comment: Yudith mated Glomerular Filtration Rate (eGFR) is calculated using the 2020 CKD-EPI creatinine equation. This equation utilizes serum creatinine, sex, and age as parameters. The creatinine assay has traceable calibration to isotope dilution-mass spectrometry. Refer to KDIGO guidelines for clinical interpretation. In patients with unstable renal function, e.g. those with acute kidney injury, the eGFR may not accurately reflect actual GFR. Performed By: #### L IPNF, 83626-9 ####[facility] LABCLIA [id number] [place] [address] [place] Glucose [Mass/Vol] 126 mg/dL High 74-[address] [facility] Comment on above: Order Comment: Brandyn mcrae Type: BLOOD SPECIMENOrdering Facility: [facility] Address: [address] [place] [address] Result Comment: The [place] Diabetes Association (ADA) provides guidance for cutoff [...] Standards of Medical Care in Diabetes 2016, [place] Diabetes Association. Diabetes Care. 2016.39(Suppl 1). Performed By: #### L IPNF, 98457-8 ####[facility] LABCLIA [id number] [address] [address] [place] Potassium [Moles/Vol] 4.3 mmol/L Normal 3.7-5.1 [facility] Comment on above: Order Comment: Speci men Type: BLOOD SPECIMENOrdering Facility: [facility] Address: [address] [place] [address] Performed By: #### L IPNF, 01920-1 ####[facility] LABIA [id number] [address] [address] [place] Protein [Mass/Vol] 6.5 g/dL Normal 6.3-8.[address] [facility] Comment on above: Order Comment: Speci men Type: BLOOD SPECIMENOrdering Facility: [facility] Address: [address] [place] [address] Performed By: #### L IPNF, 05584-8 ####[facility] LABIA [id number] [place] [id number] [place] Sodium [Moles/Vol] 143 mmol/L Normal 136-[address] [facility] Comment on above: Order Comment: Speci men Type: BLOOD SPECIMENOrdering Facility: [facility] Address: [address] [place], [place] [address] Performed By: #### L IPNF, 31275-3 ####[facility] LABCLIA [id number] [address] [address] [place] Urea nitrogen [Mass/Vol] 15 mg/dL Normal 7-21 [facility] Comment on above: Order Comment: Speci men Type: BLOOD SPECIMENOrdering Facility: [facility] Address: [address] [place], [place] [address] Performed By: #### L IPNF, 33096-1 ####[facility] LABCLIA [id number] [place] [id number] [place] LIPID PANEL, NONFASTINGon Cholesterol [Mass/Vol] 167 mg/dL Normal <200 [facility] Comment on above: Order Comment: Speci men Type: BLOOD SPECIMENOrdering Facility: [facility] Address: [address] [place] [address] Result Comment: <200 mg/dL, Desirable 200-239 mg/dL, Borderline high >239 mg/dL, High Performed By: #### L DANILO, 00606-4 ####[facility] LABCLIA [id number] [place] [address] [place] HDL CHOLESTEROL, NF 74 mg/dL Normal >39 [facility] Comment on above: Order Comment: Speci men Type: BLOOD SPECIMENOrdering Facility: [facility] Address: [address] [place] [address] Result Comment: 40-5 9 mg/dL, Acceptable >59 mg/dL, High: Negative risk factor for coronary heart disease <40 mg/dL, Low: Positive risk factor for coronary heart disease Performed By: #### L DANILO, 40554-1 ####[facility] LABCLIA [id number] [address], [address] OF [facility] LDL CHOLESTEROL CALCULATED, NF 76 mg/dL Normal <100 [facility] Comment on above: Order Comment: Speci men Type: BLOOD SPECIMENOrdering Facility: [facility] Address: [address] [place] [address] Result Comment: <100 mg/dL, Optimal 100-129 mg/dL, Near optimal/above optimal 130-159 mg/dL, Borderline high 160-189 mg/dL, High >189 mg/dL, Very high Secondary prevention optimal LDL Cholesterol levels are recommended to be <70 mg/dL LDL cholesterol is calculated using the Abarca-NIH equation. Performed By: #### L DANILO, 20876-2 ####[facility] LABCLIA [id number] [place] LDL/HDL RATIO, NF 1.03 mg/dL Normal <2.54 [facility] Comment on above: Order Comment: Brandyn clementina Type: BLOOD SPECIMENOrdering Facility: [facility] Address: [address] [place] [address] Result Comment: Kathleen roth: 1. National Cholesterol Education Program ATP III Guideline At-A-Glance Quick Desk Reference: National Heart, Lung, and Blood [place]. National Institutes of Health. 2001: NIH Publication No. 01-3305. 2. An International Atherosclerosis Society position paper: global recommendations for the management of dyslipidemia: executive summary, Atherosclerosis. 2014: 232(2):410-413. Performed By: #### L IPCHARLEE, 39637-8 ####[facility] LABCLIA [id number] [address] [place] NON HDL CHOL, NF 93 mg/dL Normal <130 [facility] Comment on above: Order Comment: Brandyn mcrae Type: BLOOD SPECIMENOrdering Facility: [facility] Address: [address] [place] [address] Result Comment: <130 mg/dL, Optimal 130-159 mg/dL, Near optimal/above optimal 160-189 mg/dL, Borderline high 190-219 mg/dL, High >219 mg/dL, Very high Secondary prevention optimal non HDL Cholesterol levels are recommended to be <100 mg/dL Performed By: #### L IPNF, 68466-8 ####[facility] LABCLIA [id number] [address] [place] T CHOL/HDL RATIO NF 2.26 mg/dL Normal <5.10 [facility] Comment on above: Order Comment: Brandyn clementina Type: BLOOD SPECIMENOrdering Facility: [facility] Address: [address] [place] [address] Performed By: #### L IPNF, 28788-8 ####[facility] LABCLIA [id number] [address] [place] TRIGLYCERIDES, NF 93 mg/dL Normal <150 [facility] Comment on above: Order Comment: Speci men Type: BLOOD SPECIMENOrdering Facility: [facility] Address: [address] [place] [address] Result Comment: <150 mg/dL, Normal 150-199 mg/dL, Borderline high 200-499 mg/dL, High >499 mg/dL, Very high Performed By: #### L IPNF, 31759-9 ####[facility] LABCLIA [id number] [address], [place] [address] [place] VLDL CHOLESTEROL, NF 14 mg/dL Normal <30 [facility] Comment on above: Order Comment: Speci men Type: BLOOD SPECIMENOrdering Facility: [facility] Address: [address] [place] [address] Performed By: #### L IPNF, 74010-0 ####[facility] LABCLIA [id number] [place] [address] [place] Urinalysis complete panel (U )on 01-06-2025 Bacteria LM.HPF (Urine sed) [#/Area] Negative Normal Negative [facility] Comment on above: Order Comment: Speci men Type: URINE SPECIMENOrdering Facility: [facility] Address: [address] [place] [address] Performed By: #### 2 4356-8 ####[facility] LABCLIA [id number] [place] [address] [place] Bilirubin Ql (U) Negative Normal Negative [facility] Comment on above: Order Comment: Speci men Type: URINE SPECIMENOrdering Facility: [facility] Address: [address] [place] [address] Performed By: #### 2 4356-8 ####[facility] LABCLIA [id number] [address], [facility]95 [place] Clarity (Unsp spec) Clear Normal Clear [facility] Comment on above: Order Comment: Speci men Type: URINE SPECIMENOrdering Facility: [facility] Address: [address] [place] [address] Performed By: #### 2 4356-8 ####[facility] LABCLIA [id number] [place] [address] [place] Color (U) Yellow Normal Yellow [facility] Comment on above: Order Comment: Speci men Type: URINE SPECIMENOrdering Facility: [facility] Address: [address] [place] [address] Performed By: #### 2 4356-8 ####[facility] LABCLIA [id number] [place] [address] [place] Epithelial cells LM.HPF (Urine sed) [#/Area] Few Normal [facility] Comment on above: Order Comment: Speci men Type: URINE SPECIMENOrdering Facility: [facility] Address: [address] [place] [address] Performed By: #### 2 4356-8 ####[facility] LABCLIA [id number] [place] [address] [place] Glucose Test strip (U) [Mass/Vol] Negative Normal Negative [facility] Comment on above: Order Comment: Speci men Type: URINE SPECIMENOrdering Facility: [facility] Address: [address] [place] [address] Performed By: #### 2 4356-8 ####[facility] LABCLIA [id number] [place] [address] [place] Hemoglobin Ql (U) Negative Normal Negative [facility] Comment on above: Order Comment: Speci men Type: URINE SPECIMENOrdering Facility: [facility] Address: [address] [place] [address] Performed By: #### 2 4356-8 ####[facility] LABCLIA [id number] [place] [id number] [place] Hyaline casts (Urine sed) [#/Area] 0 /[LPF] Normal 0 /LPF [facility] Comment on above: Order Comment: Speci men Type: URINE SPECIMENOrdering Facility: [facility] Address: [address] [place] [address] Performed By: #### 2 4356-8 ####[facility] LABCLIA [id number] [facility] [address] [place] [address] [place] Ketones Ql (U) Negative Normal Negative [facility] Comment on above: Order Comment: Speci men Type: URINE SPECIMENOrdering Facility: [facility] Address: [address] [place] [address] Performed By: #### 2 4356-8 ####[facility] LABCLIA [id number] [address], [place] [address] [place] Leukocyte esterase Test strip Ql (U) 1+ Abnormal Negative [facility] Comment on above: Order Comment: Speci men Type: URINE SPECIMENOrdering Facility: [facility] Address: [address] [place] [address] Performed By: #### 2 4356-8 ####[facility] LABCLIA [id number] [address], [facility]95 [place] Nitrite Ql (U) Negative Normal Negative [facility] Comment on above: Order Comment: Speci men Type: URINE SPECIMENOrdering Facility: [facility] Address: [address] [place] [address] Performed By: #### 2 4356-8 ####[facility] LABCLIA [id number] [facility] [address] [place] [address] [place] pH (U) 6.0 [pH] Normal <8.5 [facility] Comment on above: Order Comment: Speci men Type: URINE SPECIMENOrdering Facility: [facility] Address: [address] [place] [address] Performed By: #### 2 4356-8 ####[facility] LABCLIA [id number] [place] [address] [place] Protein (U) [Mass/Vol] Negative Normal Negative [facility] Comment on above: Order Comment: Speci men Type: URINE SPECIMENOrdering Facility: [facility] Address: [address] [place] [address] Performed By: #### 2 4356-8 ####[facility] LABCLIA [id number] [place] [address] [place] RBC LM.HPF (Urine sed) [#/Area] 0-2 /HPF Normal 0-2 /HPF [facility] Comment on above: Order Comment: Speci men Type: URINE SPECIMENOrdering Facility: [facility] Address: [address] [place] [address] Performed By: #### 2 4356-8 ####[facility] LABIA [id number] [place] [address] [place] Specific gravity (U) [Rel density] 1.019 Normal 1.005-1.030 [facility] Comment on above: Order Comment: Speci men Type: URINE SPECIMENOrdering Facility: [facility] Address: [address] [place] [address] Performed By: #### 2 4356-8 ####[facility] LABIA [id number] [place] [address] [place] Urobilinogen Ql (U) 0.2 EU/dL Normal 0.2-1.0 EU/dL [facility] Comment on above: Order Comment: Speci men Type: URINE SPECIMENOrdering Facility: [facility] Address: [address] [place] [address] Performed By: #### 2 4356-8 ####[facility] LABCLIA [id number] [place] [address] [place] WBC LM.HPF (Urine sed) [#/Area] 0-5 /HPF Normal 0-5 /HPF [facility] Comment on above: Order Comment: Speci men Type: URINE SPECIMENOrdering Facility: [facility] Address: [address] [place] [address] Performed By: #### 2 4356-8 ####[facility] LABCLIA [id number] [address]ON GARCIA [address] OF [facility] CNOVon 07-05-2024 CNOV Office Visit (FAMPWS ) CHERYL ABARCA ([id number]) 1935 F Date Time Provider Department 07/05/24 1:00 PM [facility] During your visit today, we recorded the following information about you: Temperature Pulse Respiration Blood pressure 98.1 degrees 63/minute 16/minute 112/70 Weight 68.9 kg Dionna Uriarte PA-C 07/05/2024 2:14 PM Signed Chief Complaint Patient presents with: Recheck HPI Cheryl Alla Tevin is a 89 year old female who [...] SURGICAL HISTORY Procedure Laterality Date ADENOIDECTOMY PRIMARY Adenoidectomy COLONOSCOPY FLX DX W/COLLJ SPEC WHEN PFRMD 02/08/2013 Colonoscopy COLONOSCOPY W/BIOPSY SINGLE/MULTIPLE 01/02/2002 Repeat in ECHO 10/29/2023 EGD 08/15/2004 PAST SURGICAL HISTORY OF RIGHT NEEDLE BIOPSY, Breast PAST SURGICAL HISTORY OF 11/23/2006 MOHS-PRECANCEROUS AREA ON LEFT EYEBROW. PLC BREAST CLIP PERC Left breast TONSILLECTOMY PRIMARY/SECONDARY Tonsillectomy Family History FAMILY HISTORY Problem Relation [...] normal size, no bruits. Lungs: Lungs clear (more content not included)... Normal [facility] XR Knee - bilateral 4 Viewso n 12-17-2022 IMPRESSION: No acute fracture. Bilateral patellofemoral compartment degenerative disease. 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 DIVISION OF RADIOLOGY * * *Final Report* * * DATE OF EXAM: Dec 16 2022 1:12PM WOX [id number] - XR KNEE 4V AP/PA/LAT/MERCH TEDDY / PROCEDURE REASON: multiple diagnoses * * * * Physician Interpretation * * * * EXAMINATION: XR KNEE 4V AP/PA/LAT/MERCH TEDDY CLINICAL HISTORY: Bilateral knee pain Technique: XR KNEE 4V AP/PA/LAT/MERCH TEDDY -- BILATERAL with 4 views on 5 images Comparison: None RESULT: Right knee: No acute fracture or dislocation. Patellofemoral compartment joint space narrowing with subchondral sclerosis and marginal osteophytes. Small lateral compartment marginal osteophytes. Left knee: No acute fracture or dislocation. Patellofemoral compartment joint space narrowing with subchondral sclerosis and marginal osteophytes. Small lateral compartment marginal osteophytes. [facility] * * *Final Report* * * DATE OF EXAM: Dec 16 2022 1:12PM WOX [id number] - XR KNEE 4V AP/PA/LAT/MERCH TEDDY / PROCEDURE REASON: multiple diagnoses * * * * Physician Interpretation * * * * EXAMINATION: XR KNEE 4V AP/PA/LAT/MERCH TEDDY CLINICAL HISTORY: Bilateral knee pain Technique: XR KNEE 4V AP/PA/LAT/MERCH TEDDY -- BILATERAL with 4 views on 5 images Comparison: None RESULT: Right knee: No acute fracture or dislocation. Patellofemoral compartment joint space narrowing with subchondral sclerosis and marginal osteophytes. Small lateral compartment marginal osteophytes. Left knee: No acute fracture or dislocation. Patellofemoral compartment joint space narrowing with subchondral sclerosis and marginal osteophytes. Small lateral compartment marginal osteophytes. IMPRESSION IMPRESSION: No acute fracture. Bilateral patellofemoral compartment degenerative disease. 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[facility] Transcribe Date/Time: Dec 17 2022 4:16P Dictated by : ANA HERMOSILLO MD This examination was interpreted and the report reviewed and electronically signed by: ANA HERMOSILLO MD on Dec 17 2022 4:17PM EST [facility] XR Knee - bilateral 4 ViewsO rdered By: [facility] Provider on 12-17-2022 [facility] XR Knee - bilateral 4 Viewso n 12-16-2022 Radiology Study observation (narrative) [facility] CBC W Auto Differential pane l (Bld)on 12-15-2021 Abs Immature Gran 0.03 k/uL <0.10 k/uL [facility] Basophils (Bld) [#/Vol] 0.03 10*3/uL <0.11 k/uL [facility] Basophils/100 WBC (Bld) 0.3 % [facility] Differential cell count method Nom (Bld) Auto [facility] Eosinophils (Bld) [#/Vol] 0.16 10*3/uL <0.46 k/uL [facility] Eosinophils/100 WBC (Bld) 1.6 % [facility] Erythrocyte distribution width (RBC) [Ratio] 13.4 % 11.5 - 15.0 % [facility] Hematocrit (Bld) [Volume fraction] 43.9 % 36.0 - 46.0 % [facility] Hemoglobin (Bld) [Mass/Vol] 14.5 g/dL 11.5 - 15.5 g/dL [facility] Immature Gran % 0.3 % [facility] Lymphocytes (Bld) [#/Vol] 2.19 10*3/uL 1.00 - 4.00 k/uL [facility] Lymphocytes/100 WBC (Bld) 21.7 % [facility] MCH (RBC) [Entitic mass] 30.4 pg 26. 0 - 34.0 pg [facility] MCHC (RBC) [Mass/Vol] 33.0 g/dL 30.5 - 36.0 g/dL [facility] MCV (RBC) [Entitic vol] 92.0 fL 80.0 - 100.0 fL [facility] Monocytes (Bld) [#/Vol] 0.52 10*3/uL <0.87 k/uL [facility] Monocytes/100 WBC (Bld) 5.1 % [facility] Neutrophils (Bld) [#/Vol] 7.18 10*3/uL 1.45 - 7.50 k/uL [facility] Neutrophils/100 WBC (Bld) 71.0 % [facility] Nucleated RBC (Bld) [#/Vol] 10*3/uL <0.01 k/uL [facility] Nucleated RBC/100 WBC (Bld) [Ratio] 0.0 /100 WBC [facility] Platelet mean volume (Bld) [Entitic vol] 9.8 fL 9.0 - 12.7 fL [facility] Platelets (Bld) [#/Vol] 273 10*3/uL 150 - 400 k/uL [facility] RBC (Bld) [#/Vol] 4.77 10*6/uL 3.90 - 5.2 0 m/uL [facility] WBC (Bld) [#/Vol] 10.11 10*3/uL 3.70 - 11 .00 k/uL [facility] No Panel Informationon 12-15 Radiology Study observation (narrative) [facility] XR HIP GENERAL 3V PELV/AP/LA T RIGHTon 12-15-2021 [facility] XR Pelvis and Hip - right AP and Lateral frogon 12-15-2021 IMPRESSION: No acute osseous abnormality. Preserved right hip joint space. 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 Date/Time: Dec 15 2021 4:00P Dictated by : NAYE CHAMORRO MD This examination was interpreted and the report reviewed and electronically signed by: NAYE CHAMORRO MD on Dec 15 2021 4:02PM EST ZZZ_DO_NOT_U _DIVISION OF RADIOLOGY * * *Final Report* * * DATE OF EXAM: Dec 15 2021 3:42PM WOX 5352 - XR HIP 3V PELV+ AP/LAT RT / PROCEDURE REASON: Right hip pain * * * * Physician Interpretation * * * * EXAMINATION / TECHNIQUE: XR HIP 3V PELV+ AP/LAT RT PATIENT/TECHNOLOGIST PROVIDED HISTORY: right hip pain, no known injury CLINICAL INFORMATION ( PROVIDED BY ORDERING CLINICIAN) : Right hip pain COMPARISON: None RESULT: No acute fracture or dislocation. Bilateral hip joint spaces are maintained. Degenerative changes in the pubic symphysis. Sacroiliac joints are intact. Incompletely assessed lower lumbar spine degenerative changes. ZZZ_DO_NOT_U _DIVISION OF RADIOLOGY Provider, [facility] - 12/15/2021 * * *Final Report* * * DATE OF EXAM: Dec 15 2021 3:42PM WOX 5352 - XR HIP 3V PELV+ AP/LAT RT / PROCEDURE REASON: Right hip pain * * * * Physician Interpretation * * * * EXAMINATION / TECHNIQUE: XR HIP 3V PELV+ AP/LAT RT PATIENT/TECHNOLOGIST PROVIDED HISTORY: right hip pain, no known injury CLINICAL INFORMATION ( PROVIDED BY ORDERING CLINICIAN) : Right hip pain COMPARISON: None RESULT: No acute fracture or dislocation. Bilateral hip joint spaces are maintained. Degenerative changes in the pubic symphysis. Sacroiliac joints are intact. Incompletely assessed lower lumbar spine degenerative changes. IMPRESSION IMPRESSION: No acute osseous abnormality. Preserved right hip joint space. 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 Date/Time: Dec 15 2021 3:59P Dictated by : NAYE CHAMORRO MD This examination was interpreted and the report reviewed and electronically signed by: NAYE CHAMORRO MD on Dec 15 2021 4:00PM EST ZZZ_DO_NOT_U SE_DIVISION OF RADIOLOGY * * *Final Report* * * DATE OF EXAM: Dec 15 2021 3:43PM WOX 5253 - XR SHLDR >/=3V AP/SREEDHAR AP/OTHR RT / PROCEDURE REASON: Acute pain of right shoulder * * * * Physician Interpretation * * * * EXAMINATION / TECHNIQUE: XR SHLDR >/=3V AP/SREEDHAR AP/OTHR RT PATIENT/TECHNOLOGIST PROVIDED HISTORY: right shoulder pain, no known injury CLINICAL INFORMATION ( PROVIDED BY ORDERING CLINICIAN) : Acute pain of right shoulder COMPARISON: None RESULT: No acute fracture or dislocation. Glenohumeral and acromioclavicular joints are maintained for age. No bony erosions. No other significant abnormality. ZZZ_DO_NOT_U SE_DIVISION OF RADIOLOGY Provider, [facility] - 12/15/2021 * * *Final Report* * * DATE OF EXAM: Dec 15 2021 3:43PM WOX 5253 - XR SHLDR >/=3V AP/SREEDHAR AP/OTHR RT / PROCEDURE REASON: Acute pain of right shoulder * * * * Physician Interpretation * * * * EXAMINATION / TECHNIQUE: XR SHLDR >/=3V AP/SREEDHAR AP/OTHR RT PATIENT/TECHNOLOGIST PROVIDED HISTORY: right shoulder pain, no known injury CLINICAL INFORMATION ( PROVIDED BY ORDERING CLINICIAN) : Acute pain of right shoulder COMPARISON: None RESULT: No acute fracture or dislocation. Glenohumeral and acromioclavicular joints are maintained for age. No bony erosions. No other significant abnormality. IMPRESSION IMPRESSION: No acute osseous abnormality. 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 Carl Rendon MD Work Phone: 1(091)658-965172 [place] [address] 05-21-2025 07:53-0400 Body weight 71.[address] Carl Rendon MD Work Phone: 4(780)155-271012 [place] [address] 05-21-2025 07:53-0400 Diastolic blood pressure 63 mm[Hg] Dr. Carl Rendon MD Work Phone: 3(607)297-616412 [place] [address] 05-21-2025 07:53-0400 Heart rate 104 /min Dr. Carl Rendon MD Work Phone: 3(014)212-791772 [place] [address] 05-21-2025 07:53-0400 Respiratory rate 24 /min Dr. Carl Rendon MD Work Phone: 9(241)892-071612 [place] [address] 05-21-2025 07:53-0400 SaO2% (BldA) [Mass fraction] 95 % Dr. Carl Rendon MD Work Phone: 3(187)963-223872 [place] [address] 05-21-2025 07:53-0400 Systolic blood pressure 103 mm[Hg] Dr. Carl Rendon MD Work Phone: 0(816)031-638672 [place] [address] 05-10-2025 11:46-0400 Heart rate 90 /min Dr. Carl Rendon MD Work Phone: 4(840)943-297912 [place] [address] 05-10-2025 10:51-0400 Body mass index (BMI) [Ratio] 28 kg/m2 Dr. Carl Rendon MD Work Phone: 0(438)722-839512 [place] [address] 05-10-2025 10:51-0400 Body weight 69.[address] Carl Rendon MD Work Phone: 5(953)212-360712 [place] [address] 05-10-2025 10:51-0400 Diastolic blood pressure 70 mm[Hg] Dr. Carl Rendon MD Work Phone: 4(160)243-123712 [place] [address] 05-10-2025 10:51-0400 Respiratory rate 18 /min Dr. Carl Rendon MD Work Phone: 5(101)388-727512 [place] [address] 05-10-2025 10:51-0400 Systolic blood pressure 107 mm[Hg] Dr. Carl Rendon MD Work Phone: 9(557)906-701312 [place] [address] 05-09-2025 13:19-0400 Body temperature 97.9 [degF] Dr. Carl Rendon MD Work Phone: 6(375)080-107712 [place] [address] 05-09-2025 13:19-0400 Diastolic blood pressure 88 mm[Hg] Dr. Carl Rendon MD Work Phone: 8(103)717-669612 [place] [address] 05-09-2025 13:19-0400 Heart rate 82 /min Dr. Carl Rendon MD Work Phone: 0(987)471-563412 [place] [address] 05-09-2025 13:19-0400 Respiratory rate 18 /min Dr. Carl Rendon MD Work Phone: 4(047)500-398912 [place] [address] 05-09-2025 13:19-0400 SaO2% (BldA) [Mass fraction] 99 % Dr. Carl Rendon MD Work Phone: 4(389)282-295812 [place] [address] 05-09-2025 13:19-0400 Systolic blood pressure 135 mm[Hg] Dr. Carl Rendon MD Work Phone: 8(200)925-542712 [place] [address] 05-09-2025 07:41-0400 Body height 157.[address] Carl Rendon MD Work Phone: 0(879)241-734012 [place] [address] 05-02-2025 15:36-0400 Body temperature 98.2 [degF] Dr. Carl Rendon MD Work Phone: 3(039)638-894812 [place] [address] 05-02-2025 15:36-0400 Diastolic blood pressure 63 mm[Hg] Dr. Carl Rendon MD Work Phone: 6(888)436-771112 [place] [address] 05-02-2025 15:36-0400 Heart rate 99 /min Dr. Carl Rendon MD Work Phone: 6(348)571-298212 [place] [address] 05-02-2025 15:36-0400 Respiratory rate 19 /min Dr. Carl Rendon MD Work Phone: 7(338)230-275212 [place] [address] 05-02-2025 15:36-0400 SaO2% (BldA) [Mass fraction] 97 % Dr. Carl Rendon MD Work Phone: 0(231)047-384712 [place] [address] 05-02-2025 15:36-0400 Systolic blood pressure 130 mm[Hg] Dr. Carl Rendon MD Work Phone: 6(025)920-337612 [place] [address] 05-02-2025 10:28-0400 Body height 157.[address] Carl Rendon MD Work Phone: 6(520)323-023712 [place] [address] 05-02-2025 10:28-0400 Body mass index (BMI) [Ratio] 28.4 kg/m2 Dr. Carl Rendon MD Work Phone: 2(968)164-210212 [place] [address] 05-02-2025 10:28-0400 Body weight 70.[address] Carl Rendon MD Work Phone: 8(827)096-763212 [place] [address] 04-24-2025 07:54-0400 Body mass index (BMI) [Ratio] 28.9 kg/m2 Dr. Carl Rendon MD Work Phone: 2(606)352-907012 [place] [address] 04-24-2025 07:54-0400 Body weight 71.[address] Carl Rendon MD Work Phone: 6(444)276-378612 [place] [address] 04-24-2025 07:54-0400 Diastolic blood pressure 77 mm[Hg] Dr. Carl Rendon MD Work Phone: 9(425)568-961412 [place] [address] 04-24-2025 07:54-0400 Heart rate 102 /min Dr. Carl Rendon MD Work Phone: 8(711)070-267812 [place] [address] 04-24-2025 07:54-0400 Respiratory rate 18 /min Dr. Carl Rendon MD Work Phone: 8(000)446-556912 [place] [address] 04-24-2025 07:54-0400 SaO2% (BldA) [Mass fraction] 97 % Dr. Carl Rendon MD Work Phone: 4(303)022-386412 [place] [address] 04-24-2025 07:54-0400 Systolic blood pressure 126 mm[Hg] Dr. Carl Rendon MD Work Phone: 1(519)716-528012 [place] [address] 04-10-2025 06:55-0400 Body height 157.[address] Carl Rendon MD Work Phone: 9(500)128-072312 [place] [address] 04-10-2025 06:55-0400 Body mass index (BMI) [Ratio] 29 kg/m2 Dr. Carl Rendon MD Work Phone: 7(858)153-527112 [place] [address] 04-10-2025 06:55-0400 Body weight 72.[address] Carl Rendon MD Work Phone: 2(482)000-880212 [place] [address] 04-10-2025 06:55-0400 Diastolic blood pressure 85 mm[Hg] Dr. Carl Rendon MD Work Phone: 3(514)082-151212 [place] [address] 04-10-2025 06:55-0400 Heart rate 94 /min Dr. Carl Rendon MD Work Phone: 0(901)294-349712 [place] [address] 04-10-2025 06:55-0400 Respiratory rate 18 /min Dr. Carl Rendon MD Work Phone: 7(529)941-650412 [place] [address] 04-10-2025 06:55-0400 SaO2% (BldA) [Mass fraction] 97 % Dr. Carl Rendon MD Work Phone: 4(172)305-321172 [place] [address] 04-10-2025 06:55-0400 Systolic blood pressure 131 mm[Hg] Dr. Carl Rendon MD Work Phone: 1(568)793-546312 [place] [address] 03-16-2025 09:39-0400 Diastolic blood pressure 78 mm[Hg] Dr. Carl Rendon MD Work Phone: 9(598)354-203412 [place] [address] 03-16-2025 09:39-0400 Systolic blood pressure 132 mm[Hg] Dr. Carl Rendon MD Work Phone: 3(680)476-611512 [place] [address] 03-16-2025 09:08-0400 Body height 157.[address] Carl Rendon MD Work Phone: 3(000)662-063812 [place] [address] 03-16-2025 07:33-0400 Body mass index (BMI) [Ratio] 28.7 kg/m2 Dr. Carl Rendon MD Work Phone: 4(934)628-700312 [place] [address] 03-16-2025 07:33-0400 Body weight 71.[address] Carl Rendon MD Work Phone: 4(176)144-835112 [place] [address] 03-16-2025 07:33-0400 Heart rate 56 /min Dr. Carl Rendon MD Work Phone: 9(652)472-231312 [place] [address] 03-16-2025 07:33-0400 Respiratory rate 18 /min Dr. Carl Rendno MD Work Phone: 5(407)863-035612 [place] [address] 03-16-2025 07:33-0400 SaO2% (BldA) [Mass fraction] 97 % Dr. Carl Rendon MD Work Phone: 2(230)191-891912 [place] [address] 03-13-2025 08:53-0400 Body mass index (BMI) [Ratio] 27.92 kg/m2 Dionna Uriarte PA-C Work Phone: [facility] 03-13-2025 08:53-0400 Body temperature 96.91 [degF] Dionna Uriarte PA-C Work Phone: 9(979)988-781599 [place] [address] 03-13-2025 08:53-0400 Body weight 71.49 kg Dionna Uriarte PA-C Work Phone: [facility] 03-13-2025 08:53-0400 Diastolic blood pressure 83 mm[Hg] Dionnaabad Uriarte PA-C Work Phone: [facility] 03-13-2025 08:53-0400 Heart rate 103 /min Dionna Uriarte PA-C Work Phone: [facility] 03-13-2025 08:53-0400 Respiratory rate 16 /min Dionna Uriarte PA-C Work Phone: [facility] 03-13-2025 08:53-0400 SaO2% (BldA) [Mass fraction] 97 % Dionna Uriarte PA-C Work Phone: [facility] 03-13-2025 08:53-0400 Systolic blood pressure 124 mm[Hg] Dionna Uriarte PA-C Work Phone: [facility] 02-20-2025 10:39-0400 Body height 157.[address] Carl Rendon MD Work Phone: 1(290)745-949972 [place] [address] 02-20-2025 10:39-0400 Body mass index (BMI) [Ratio] 27.6 kg/m2 Dr. Carl Rendon MD Work Phone: [facility] 02-20-2025 10:39-0400 Body weight 68.[address] Carl Rendon MD Work Phone: [facility] 02-20-2025 10:39-0400 Diastolic blood pressure 73 mm[Hg] Dr. Carl Rendon MD Work Phone: [facility] 02-20-2025 10:39-0400 Heart rate 61 /min Dr. Carl Rendon MD Work Phone: [facility] 02-20-2025 10:39-0400 Respiratory rate 16 /min Dr. Carl Rendon MD Work Phone: 3(520)622-883272 [place] [address] 02-20-2025 10:39-0400 Systolic blood pressure 124 mm[Hg] Dr. Carl Rendon MD Work Phone: [facility] 02-05-2025 11:52-0400 Body mass index (BMI) [Ratio] 28 kg/m2 Omari Navas SINGLE POINTED OPERATOR.DIRECTOR ASSET Work Phone: [facility] 02-05-2025 11:52-0400 Body temperature 98.49 [degF] Omari Navas SINGLE POINTED OPERATOR.DIRECTOR ASSET Work Phone: [facility] 02-05-2025 11:52-0400 Body weight 71.7 kg Omari Navas SINGLE POINTED OPERATOR.DIRECTOR ASSET Work Phone: [facility] 02-05-2025 11:52-0400 Diastolic blood pressure 78 mm[Hg] Omari Navas SINGLE POINTED OPERATOR.DIRECTOR ASSET Work Phone: [facility] 02-05-2025 11:52-0400 Heart rate 65 /min Omari Navas SINGLE POINTED OPERATOR.DIRECTOR ASSET Work Phone: [facility] 02-05-2025 11:52-0400 Respiratory rate 18 /min Omari Navas SINGLE POINTED OPERATOR.DIRECTOR ASSET Work Phone: [facility] 02-05-2025 11:52-0400 SaO2% (BldA) [Mass fraction] 97 % Omari Navas SINGLE POINTED OPERATOR.DIRECTOR ASSET Work Phone: [facility] 02-05-2025 11:52-0400 Systolic blood pressure 128 mm[Hg] Omari Navas SINGLE POINTED OPERATOR.DIRECTOR ASSET Work Phone: [facility] 01-25-2025 09:12-0400 Body mass index (BMI) [Ratio] 27.78 kg/m2 Carl Rendon MD Work Phone: [facility] 01-25-2025 09:12-0400 Body weight 71.12 kg Carl Rendon MD Work Phone: [facility] 01-25-2025 09:12-0400 Diastolic blood pressure 76 mm[Hg] Carl Rendon MD Work Phone: [facility] 01-25-2025 09:12-0400 Heart rate 56 /min Carl Rendon MD Work Phone: [facility] 01-25-2025 09:12-0400 Respiratory rate 16 /min Carl Rendon MD Work Phone: [facility] 01-25-2025 09:12-0400 Systolic blood pressure 130 mm[Hg] Carl Rendon MD Work Phone: [facility] 01-08-2025 08:42-0400 Diastolic blood pressure 74 mm[Hg] Carl Rendon MD Work Phone: [facility] 01-08-2025 08:42-0400 Systolic blood pressure 138 mm[Hg] Carl Rendon MD Work Phone: [facility] 01-08-2025 08:03-0400 Body height 160 cm Carl Rendon MD Work Phone: [facility] 01-08-2025 08:03-0400 Body mass index (BMI) [Ratio] 26.75 kg/m2 Carl Rendon MD Work Phone: [facility] 01-08-2025 08:03-0400 Body weight 68.49 kg Carl Rendon MD Work Phone: [facility] 01-08-2025 08:03-0400 Heart rate 60 /min Carl Rendon MD Work Phone: [facility] 01-08-2025 08:03-0400 Respiratory rate 16 /min Carl Rendon MD Work Phone: [facility] 01-08-2025 08:03-0400 SaO2% (BldA) [Mass fraction] 96 % Carl Rendon MD Work Phone: [facility] 07-05-2024 13:09-0500 Body mass index (BMI) [Ratio] 27.79 kg/m2 Dionna Uriarte PA-C Work Phone: [facility] 07-05-2024 13:09-0500 Body temperature 98.1 [degF] Dionna Uriarte PA-C Work Phone: [facility] 07-05-2024 13:09-0500 Body weight 68.95 kg Dionna Uriarte PA-C Work Phone: [facility] 07-05-2024 13:09-0500 Diastolic blood pressure 70 mm[Hg] Dionna Uriarte PA-C Work Phone: [facility] 07-05-2024 13:09-0500 Heart rate 63 /min Dionna Uriarte PA-C Work Phone: [facility] 07-05-2024 13:09-0500 Respiratory rate 16 /min Dionna Uriarte PA-C Work Phone: [facility] 07-05-2024 13:09-0500 SaO2% (BldA) [Mass fraction] 96 % Dionna Uriarte PA-C Work Phone: [facility] 07-05-2024 13:09-0500 Systolic blood pressure 112 mm[Hg] Dionna Uriarte PA-C Work Phone: [facility] 05-01-2024 11:49-0400 Body mass index (BMI) [Ratio] 25.97 kg/m2 Noreen Camacho APRN.DIRECTOR ASSET Work Phone: [facility] 05-01-2024 11:49-0400 Body temperature 97.11 [degF] Noreen Camacho APRN.DIRECTOR ASSET Work Phone: [facility] 05-01-2024 11:49-0400 Body weight 64.41 kg Noreen Camacho APRN.DIRECTOR ASSET Work Phone: [facility] 05-01-2024 11:49-0400 Diastolic blood pressure 80 mm[Hg] Noreen Camacho APRN.DIRECTOR ASSET Work Phone: [facility] 05-01-2024 11:49-0400 Heart rate 72 /min Noreen Camacho APRN.DIRECTOR ASSET Work Phone: [facility] 05-01-2024 11:49-0400 Respiratory rate 16 /min Noreen Camacho APRN.DIRECTOR ASSET Work Phone: [facility] 05-01-2024 11:49-0400 SaO2% (BldA) [Mass fraction] 97 % Noreen Camacho APRN.DIRECTOR ASSET Work Phone: [facility] 05-01-2024 11:49-0400 Systolic blood pressure 123 mm[Hg] Noreen Camacho APRN.DIRECTOR ASSET Work Phone: [facility] 02-22-2024 10:33-0400 Body mass index (BMI) [Ratio] 27.25 kg/m2 Dionna Uriarte PA-C Work Phone: [facility] 02-22-2024 10:33-0400 Body temperature 97.7 [degF] Dionna Uriarte PA-C Work Phone: [facility] 02-22-2024 10:33-0400 Body weight 67.59 kg Dionna Uriarte PA-C Work Phone: [facility] 02-22-2024 10:33-0400 Diastolic blood pressure 70 mm[Hg] Dionna Uriarte PA-C Work Phone: [facility] 02-22-2024 10:33-0400 Heart rate 55 /min Dionna Uriarte PA-C Work Phone: [facility] 02-22-2024 10:33-0400 Respiratory rate 16 /min Dionna Uriarte PA-C Work Phone: [facility] 02-22-2024 10:33-0400 SaO2% (BldA) [Mass fraction] 97 % Dionna Uriarte PA-C Work Phone: [facility] 02-22-2024 10:33-0400 Systolic blood pressure 110 mm[Hg] Dionna Uriarte PA-C Work Phone: [facility] 02-01-2024 10:20-0400 Body mass index (BMI) [Ratio] 26.51 kg/m2 Dionna Uriarte PA-C Work Phone: [facility] 02-01-2024 10:20-0400 Body temperature 98.4 [degF] Dionna Uriarte PA-C Work Phone: [facility] 02-01-2024 10:20-0400 Body weight 65.77 kg Dionna Uriarte PA-C Work Phone: [facility] 02-01-2024 10:20-0400 Diastolic blood pressure 80 mm[Hg] Dionna Uriarte PA-C Work Phone: [facility] 02-01-2024 10:20-0400 Heart rate 54 /min Dionna Uriarte PA-C Work Phone: [facility] 02-01-2024 10:20-0400 Respiratory rate 16 /min Dionna Uriarte PA-C Work Phone: [facility] 02-01-2024 10:20-0400 SaO2% (BldA) [Mass fraction] 98 % Dionna Uriarte PA-C Work Phone: [facility] 02-01-2024 10:20-0400 Systolic blood pressure 122 mm[Hg] Dionna Uriarte PA-C Work Phone: [facility] 01-12-2024 12:46-0400 Body mass index (BMI) [Ratio] 27.79 kg/m2 Dionna Uriarte PA-C Work Phone: [facility] 01-12-2024 12:46-0400 Body temperature 98.2 [degF] Dionna Uriarte PA-C Work Phone: [facility] 01-12-2024 12:46-0400 Body weight 68.95 kg Dionna Uriarte PA-C Work Phone: [facility] 01-12-2024 12:46-0400 Diastolic blood pressure 76 mm[Hg] Dionna Uriarte PA-C Work Phone: [facility] 01-12-2024 12:46-0400 Heart rate 50 /min Dionna Uriarte PA-C Work Phone: [facility] 01-12-2024 12:46-0400 Respiratory rate 16 /min Dionna Uriarte PA-C Work Phone: [facility] 01-12-2024 12:46-0400 Systolic blood pressure 112 mm[Hg] Dionna Uriarte PA-C Work Phone: [facility] 01-04-2024 09:20-0400 Heart rate 55 /min Dionna Uriarte PA-C Work Phone: [facility] 01-04-2024 08:19-0400 Body mass index (BMI) [Ratio] 27.79 kg/m2 Dionna Uriarte PA-C Work Phone: [facility] 01-04-2024 08:19-0400 Body weight 68.95 kg Dionna Uriarte PA-C Work Phone: [facility] 01-04-2024 08:19-0400 Diastolic blood pressure 60 mm[Hg] Dionna Uriarte PA-C Work Phone: [facility] 01-04-2024 08:19-0400 Respiratory rate 18 /min Dionna Uriarte PA-C Work Phone: [facility] 01-04-2024 08:19-0400 SaO2% (BldA) [Mass fraction] 97 % Dionna Uriarte PA-C Work Phone: [facility] 01-04-2024 08:19-0400 Systolic blood pressure 120 mm[Hg] Dionna Uriarte PA-C Work Phone: [facility] 12-27-2023 07:48-0400 Body height 157.5 cm Dionna Uriarte PA-C Work Phone: [facility] 12-27-2023 07:48-0400 Body mass index (BMI) [Ratio] 28.05 kg/m2 Dionna Uriarte PA-C Work Phone: [facility] 12-27-2023 07:48-0400 Body weight 69.58 kg Dionna Uriarte PA-C Work Phone: [facility] 12-27-2023 07:48-0400 Diastolic blood pressure 86 mm[Hg] Dionna Uriarte PA-C Work Phone: [facility] 12-27-2023 07:48-0400 Heart rate 70 /min Dionna Uriarte PA-C Work Phone: [facility] 12-27-2023 07:48-0400 Respiratory rate 16 /min Dionna Uriarte PA-C Work Phone: [facility] 12-27-2023 07:48-0400 SaO2% (BldA) [Mass fraction] 99 % Dionna Uriarte PA-C Work Phone: [facility] 12-27-2023 07:48-0400 Systolic blood pressure 136 mm[Hg] Dionna Uriarte PA-C Work Phone: [facility] 02-10-2023 09:32-0400 Body weight 69.85 kg Carl Rendon MD Work Phone: [facility] 02-10-2023 09:32-0400 Diastolic blood pressure 84 mm[Hg] Carl Rendon MD Work [facility]: [facility] [facility] 02-10-2023 09:32-0400 Heart rate 82 /min Carl Rendon MD Work Phone: [facility] 02-10-2023 09:32-0400 Respiratory rate 16 /min Carl Rendon MD Work Phone: [facility] 02-10-2023 09:32-0400 Systolic blood pressure 124 mm[Hg] Carl Rendon MD Work Phone: [facility] 12-30-2022 10:00-0400 Diastolic blood pressure 78 mm[Hg] Keyla Lemon PT [facility] 12-30-2022 10:00-0400 Systolic blood pressure 134 mm[Hg] Keyla Lemon PT [facility] 12-25-2022 08:52-0400 Diastolic blood pressure 80 mm[Hg] Dionna Uriarte PA-C Work Phone: [facility] 12-25-2022 08:52-0400 Heart rate 68 /min Dionna Uriarte PA-C Work Phone: [facility] 12-25-2022 08:52-0400 Systolic blood pressure 150 mm[Hg] Dionna Uriarte PA-C Work Phone: [facility] 12-25-2022 08:12-0400 Body height 159 cm Dionna Uriarte PA-C Work Phone: [facility] 12-25-2022 08:12-0400 Body temperature 98.4 [degF] Dionna Uriarte PA-C Work Phone: [facility] 12-25-2022 08:12-0400 Body weight 69.85 kg Dionna Uriarte PA-C Work Phone: [facility] 12-25-2022 08:12-0400 Respiratory rate 16 /min Dionna Uriarte PA-C Work Phone: [facility] 07-06-2022 10:23-0500 Body temperature 98.2 [degF] Jono Johnson MD Work Phone: [facility] 07-06-2022 10:23-0500 Body weight 71.22 kg Jono Johnson MD Work Phone: [facility] 07-06-2022 10:23-0500 Diastolic blood pressure 80 mm[Hg] Jono Johnson MD Work Phone: [facility] 07-06-2022 10:23-0500 Heart rate 80 /min Jono Johnson MD Work Phone: [facility] 07-06-2022 10:23-0500 Respiratory rate 16 /min Jono Johnson MD Work Phone: [facility] 07-06-2022 10:23-0500 SaO2% (BldA) [Mass fraction] 99 % Jono Johnson MD Work Phone: [facility] 07-06-2022 10:23-0500 Systolic blood pressure 124 mm[Hg] Jono Johnson MD Work Phone: [facility] 05-11-2022 16:38-0400 Body temperature 98.1 [degF] Nurse Wstr Work Phone: [facility] 05-11-2022 16:38-0400 Body weight 71.67 kg Nurse Wstr Work Phone: [facility] 05-11-2022 16:38-0400 Diastolic blood pressure 64 mm[Hg] Nurse Wstr Work Phone: [facility] 05-11-2022 16:38-0400 Heart rate 80 /min Nurse Wstr Work Phone: [facility] 05-11-2022 16:38-0400 Respiratory rate 22 /min Nurse Wstr Work Phone: [facility] 05-11-2022 16:38-0400 SaO2% (BldA) [Mass fraction] 97 % Nurse Wstr Work Phone: [facility] 05-11-2022 16:38-0400 Systolic blood pressure 138 mm[Hg] Nurse Wstr Work Phone: [facility] 12-15-2021 14:12-0400 Body height 157.5 cm Carl Rendon MD Work Phone: [facility] 12-15-2021 14:12-0400 Body weight 70.76 kg Carl Rendon MD Work Phone: [facility] 12-15-2021 14:12-0400 Diastolic blood pressure 80 mm[Hg] Carl Rendon MD Work Phone: [facility] 12-15-2021 14:12-0400 Heart rate 48 /min Carl Rendon MD Work Phone: [facility] 12-15-2021 14:12-0400 Respiratory rate 16 /min Carl Rendon MD Work Phone: [facility] 12-15-2021 14:12-0400 Systolic blood pressure 136 mm[Hg] Carl Rendon MD Work Phone: [facility] Encounters Encounter Date Encounter Type Care Provider Facility Start: 06-19-2025 ambulatory Carl Rendon Facility :[facility] Start: 06-11-2025 ambulatory Dontrell Hernandez Facility :[facility] Start: 06-06-2025 ambulatory Carl Rendon Facility :[facility] Start: 06-05-2025 ambulatory Genesis Quinn Facili ty:[facility] Start: 06-01-2025 End: 06-01-2025 ambulatory Genesis Quinn Facility:[facility] Start: 05-31-2025 End: 05-31-2025 ambulatory Carl Rendon Facility:[facility] Start: 05-28-2025 End: 05-28-2025 Emergency department patient visit Carl Rendon Facility:[facility] Start: 05-28-2025 End: 05-28-2025 ambulatory Carl Rendon Facility:[facility] Start: 05-23-2025 End: 05-23-2025 ambulatory CARL RENDON Facility:[facility] Start: 05-21-2025 End: 05-22-2025 ambulatory Dontrell Hernandez Facility:[facility] Start: 05-21-2025 End: 05-21-2025 ambulatory John Pruett NP Facility:[facility] Start: 05-19-2025 End: 05-19-2025 ambulatory CARL RENDON Facility:[facility] Start: 05-18-2025 ambulatory Carl Rendon Facility :[facility] Start: 05-18-2025 End: 05-18-2025 ambulatory Dontrell Hernandez Facility:[facility] Start: 05-11-2025 End: 05-11-2025 ambulatory CARL RENDON Facility:[facility] Start: 05-10-2025 End: 05-10-2025 Patient encounter procedure Elida Gann NP-Alek -[facility] Work Phone: Start: 05-10-2025 End: 05-10-[address] Carl Rendon MD Work Phone: -[facility] Start: 05-09-2025 End: 05-09-2025 Emergency department patient visit Dr. Isidoro Medrano DO -Emergency Department Work Phone: Start: 05-02-2025 End: 05-02-2025 Emergency department patient visit Dr. Carl Rendon MD Work Phone: -Emergency Department Work Phone: Start: 05-02-2025 End: 05-02-2025 ambulatory CARL RENDON Facility:[facility] Start: 04-25-2025 End: 04-25-2025 ambulatory DIONNA URIARTE Facility:[facility] Start: 04-24-2025 End: 04-24-[address] Carl Rendon MD Work Phone: -Laboratory Start: 04-24-2025 End: 04-24-2025 Patient encounter procedure Dontrell Demiter PA -Laboratory Work Phone: Start: 04-24-2025 End: 04-24-2025 Patient encounter procedure Dontrell Demiter PA -[facility] Work Phone: Start: 04-24-2025 End: 04-24-[address] Carl Rendon MD Work Phone: -[facility] Start: 04-24-2025 End: 04-24-2025 ambulatory Dontrell Hernandez Facility:[facility] Start: 04-20-2025 [facility]: Start: 04-20-2025 ambulatory Carl Rendon Facility :[facility] Start: 04-17-2025 ambulatory CARL RENDON [facility] ty:[facility] Start: 04-16-2025 End: 04-16-2025 ambulatory CARL RENDON Facility:[facility] Start: 04-16-2025 End: 04-16-2025 ambulatory CARL RENDON Facility:[facility] Start: 04-10-2025 End: 04-10-2025 Chart abstracting Brenda Oleary MA [facility] Comment on above: ext document (Labs) Start: 04-10-2025 End: 04-10-[address] Carl Rendon MD Work Phone: -Laboratory Start: 04-10-2025 End: 04-10-2025 Patient encounter procedure Dontrell Hernandez PA -Laboratory Work Phone: Start: 04-10-2025 End: 04-10-2025 Patient encounter procedure Dontrell Demiter PA -[facility] Work Phone: Start: 04-10-2025 End: 04-10-[address] Carl Rendon MD Work Phone: -[facility] Start: 04-10-2025 End: 04-10-2025 ambulatory Dontrell Hernandez Facility:[facility] Start: 04-05-2025 End: 04-05-2025 Refill Carl Rendon MD Work Phone: [facility] Comment on above: Refill Request Start: 04-04-2025 End: 04-04-2025 Refill Dionna Uriarte PA-C Work Phone: [facility] Comment on above: Med Change Request Start: 03-30-2025 End: 03-30-2025 Chart abstracting Carl Rendon MD Work Phone: [facility] Comment on above: Abstract (Cardiology OV, WH[facility]) Start: 03-21-2025 Non-patient / Non-visit Dr. Skyler SHETH -[facility] Work Phone: Start: 03-21-2025 ambulatory Dontrell Hernandez Facility :[facility] Start: 03-21-2025 Registered Referred Dontrell Pelaez -Cardiovascular Services Work Phone: Start: 03-16-2025 End: 03-16-2025 Patient encounter procedure Dontrell ARBOLEDA -[facility] Work Phone: Start: 03-16-2025 End: 03-16-[address] Carl Rendon MD Work Phone: -[facility] Start: 03-13-2025 End: 03-13-2025 Office outpatient visit 40 minutes Dionna Uriarte PA-C Work Phone: [facility] Comment on above: Atrial flutter, unsp ecified type (HCC) (Primary Dx); Paroxysmal atrial fibrillation (HCC); Essential hypertension, benign Start: 03-13-2025 End: 03-13-2025 ambulatory DIONNA URIARTE Facility:[facility] Start: 02-20-2025 End: 02-20-2025 Chart abstracting Carl Rendon MD Work Phone: [facility] Comment on above: Outside Cardiology Start: 02-20-2025 End: 02-20-[address] Yuri Ta MD -[facility] Work Phone: Start: 02-20-2025 End: 02-20-[address] Carl Rendon MD Work Phone: -[facility] Start: 02-19-2025 End: 02-20-2025 Refill Carl Rendon MD Work Phone: [facility] Comment on above: Refill Request Start: 02-07-2025 End: 02-07-2025 Nursing evaluation of patient and report Mi Nurse Work Phone: [facility] Comment on above: Common wart (Primary Dx) Start: 02-07-2025 End: 02-07-2025 ambulatory CARL A JULIETA Facility:[facility] Start: 02-05-2025 End: 02-05-2025 Patient encounter procedure Omari King AMANDEEP Work Phone: [facility] Comment on above: Itchy scalp (Primary Dx); Rash Start: 02-05-2025 End: 02-05-2025 ambulatory [facility] Facility:[facility] Start: 01-31-2025 End: 02-05-2025 Refill Carl Rendon MD Work Phone: [facility] Comment on above: Refill Request Start: 01-30-2025 End: 01-31-2025 Follow-up encounter Carl Rendon MD Work Phone: [facility] Start: 01-25-2025 End: 01-25-2025 Patient encounter procedure Carl Rendon MD Work Phone: [facility] Comment on above: 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 JULIETA Facility:[facility] Start: 01-08-2025 End: 01-08-2025 Follow-up encounter Noreen Camacho APRN.CNP Work Phone: [facility] Start: 01-08-2025 End: 01-08-2025 Patient encounter procedure Carl Rendon MD Work Phone: [facility] Comment on above: Medicare annual well ness visit, subsequent (Primary Dx); Essential hypertension, benign; Hyperlipidemia, mixed; Chronic systolic CHF (congestive heart failure) (HCC); Paroxysmal atrial fibrillation (HCC); Adjustment disorder with depressed mood; Smoker; LIZZY (generalized anxiety disorder); Primary osteoarthritis involving multiple joints; Excessive ear wax, left; 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; 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; Advance directive discussed with patient; Screening for depression; Medication management Start: 01-08-2025 End: 01-08-2025 ambulatory CARL RENDON Facility:[facility] Start: 01-06-2025 End: 01-06-2025 ambulatory DIONNA URIARTE Facility:[facility] Start: 01-04-2025 End: 01-05-2025 Refill Carl Rendon MD Work Phone: [facility] Comment on above: Refill Request Start: 11-27-2024 End: 11-27-2024 Refill Carl Rendon MD Work Phone: [address] [place] [address] Comment on above: Refill Request Start: 10-30-2024 End: 10-30-2024 Refill Carl Rendon MD Work Phone: [facility] Comment on above: Refill Request Start: 08-28-2024 End: 08-28-2024 Refill Carl Rendon MD Work Phone: [facility] Comment on above: Refill Request Start: 07-05-2024 End: 07-05-2024 ambulatory DIONNA URIARTE Facility:[facility] Start: 07-05-2024 End: 07-05-2024 Office outpatient visit 25 minutes Dionna Uriarte PA-C Work Phone: [facility] Comment on above: Hyperlipidemia, mixe d (Primary Dx); Paroxysmal atrial fibrillation (HCC); Essential hypertension, benign; Sleep apnea, unspecified type; Acute systolic CHF (congestive heart failure) (HCC) Start: 06-30-2024 End: 07-01-2024 Refill Carl Rendon MD Work Phone: [facility] Comment on above: Refill Request Start: 05-29-2024 End: 05-29-2024 Refill Carl Rendon MD Work Phone: [facility] Comment on above: Refill Request Start: 05-01-2024 End: 05-01-2024 Patient encounter procedure Noreen Camacho APRN.CNP Work Phone: [facility] Comment on above: COVID-19 (Primary Dx ) Start: 05-01-2024 End: 05-01-2024 ambulatory Nurse Intm/Famp Triage [facility] Work Phone: Nurse Phone Triage Comment on above: Covid Positive headache, runny nose , body aches and fatigue Start: 04-13-2024 End: 04-13-2024 Chart abstracting Carl Rendon MD Work Phone: [facility] Comment on above: Outside Cardiology Start: 02-22-2024 End: 02-22-2024 Patient encounter procedure Dionna Uriarte PA-C Work Phone: [facility] Comment on above: LIZZY (generalized anx iety disorder) (Primary Dx); Adjustment disorder with depressed mood Start: 02-08-2024 Chart abstracting Carl chinchilla MD Work Phone: [facility] Comment on above: Outside Cardiology Start: 02-01-2024 End: 02-01-2024 Patient encounter procedure Dionna Uriarte PA-C Work Phone: [facility] Comment on above: LIZZY (generalized anx iety disorder) (Primary Dx); Panic disorder; Adjustment disorder with depressed mood Start: 01-26-2024 Telephone encounter Carl Rendon MD Work Phone: [facility] Comment on above: Medication Problem ( Lorazepam .05 mg); Medication Request (Potassium 20 mEq) Refill Request Start: 01-25-2024 Chart abstracting Najma Sanabria MA [facility] Comment on above: Consult (Cardiology /) Start: 01-20-2024 Telephone encounter Carl Rendon MD Work Phone: [facility] Comment on above: Results Start: 01-19-2024 Telephone encounter Sherry Blissrafa ya APRN.DIRECTOR ASSET Work Phone: [facility] Comment on above: Results Start: 01-14-2024 End: 01-14-2024 Subsequent hospital visit by physician Bone Density [facility] Work Phone: Radiology Comment on above: Asymptomatic menopau bria state [Z78.0] Start: 01-12-2024 Telephone encounter Dionna giordano PA-C Work Phone: [facility] Comment on above: Results Start: 01-12-2024 End: 01-12-2024 Patient encounter procedure Dionna Uriarte PA-C Work Phone: [facility] Comment on above: Adjustment disorder with depressed mood (Primary Dx); Panic disorder; Paroxysmal atrial fibrillation (HCC); Acute systolic CHF (congestive heart failure) (HCC); Essential hypertension, benign Start: 01-11-2024 Refill Carl pham MD Work Phone: [facility] Comment on above: Refill Request Medication Question (Ativan 0.5 mg as needed 3 times daily given at [facility] and also told to ask PCP about Buspar instead this was from the cardiology department at [facility]) Start: 01-07-2024 Telephone encounter Carl Rendon MD Work Phone: [facility] Comment on above: Clinical Update Start: 01-05-2024 Telephone encounter Dionna giordano PA-C Work Phone: [facility] Comment on above: Results Start: 01-04-2024 ambulatory Carl pham MD Work Phone: [facility] Start: 01-04-2024 Telephone encounter Carl Rendon MD Work Phone: [facility] Comment on above: Patient Question Start: 01-04-2024 End: 01-04-2024 Patient encounter procedure Dionna Uriarte PA-C Work Phone: [facility] Comment on above: New onset atrial fib rillation (HCC) (Primary Dx); Paroxysmal atrial fibrillation (HCC); Acute systolic CHF (congestive heart failure) (HCC); [facility] current use of anticoagulant therapy Start: 12-30-2023 Chart abstracting Carl chinchilla MD Work Phone: [facility] Comment on above: Outside Cardio Start: 12-29-2023 Telephone encounter Carl Rendon MD Work Phone: [facility] Comment on above: Patient Update Start: 12-28-2023 Chart abstracting Carl chinchilla MD Work Phone: [facility] Comment on above: Outside H+P Start: 12-27-2023 Telephone encounter Carl Rendon MD Work Phone: [facility] Comment on above: Patient Question Start: 12-27-2023 End: 12-27-2023 Patient encounter procedure Dionna Uriarte PA-C Work Phone: [facility] Comment on above: Medicare annual well ness visit, subsequent (Primary Dx); Advance directive discussed with patient; Smoker; Sleep apnea, unspecified type; Hyperlipidemia, mixed; Essential hypertension, benign; Primary osteoarthritis involving multiple joints; Fatigue, unspecified type; Asymptomatic menopausal state; Cardiac arrhythmia, unspecified cardiac arrhythmia type; Adjustment disorder with depressed mood; Atrial fibrillation with RVR (HCC) Start: 11-26-2023 Refill Najma Sanabria MA [facility] Comment on above: Rx Refills Start: 05-26-2023 Refill Carl pham MD Work Phone: [facility] Comment on above: Refill Request Start: 02-19-2023 Telephone encounter Carl Rendon MD Work Phone: [facility] Comment on above: Paperwork needed as pt will be moving to [facility] Start: 02-10-2023 End: 02-10-2023 Patient encounter procedure Carl Rendon MD Work Phone: [facility] Comment on above: Acute pain of both k nees (Primary Dx) Start: 01-27-2023 End: 01-27-2023 ambulatory Keyla Lemon PT [facility] Comment on above: Acute pain of both k nees (Primary Dx) Start: 01-20-2023 End: 01-20-2023 ambulatory Dania Kashuba INFORMATION ASSURANCE OFFICER Work Phone: [facility] Comment on above: Acute pain of both k nees (Primary Dx) Start: 01-13-2023 End: 01-13-2023 ambulatory Dania Kashuba INFORMATION ASSURANCE OFFICER Work Phone: [facility] Comment on above: Acute pain of both k nees (Primary Dx) Start: 01-08-2023 Telephone encounter Carl Rendon MD Work Phone: [facility] Comment on above: Results Start: 01-08-2023 End: 01-08-2023 ambulatory Keyla Lemon PT [facility] Comment on above: Acute pain of both k nees (Primary Dx) Start: 12-30-2022 End: 12-30-2022 ambulatory Keyla Lemon PT [facility] Comment on above: Acute pain of both k nees (Primary Dx) Start: 12-28-2022 Telephone encounter Dionna giordano PA-C Work Phone: [facility] Comment on above: Results Start: 12-25-2022 End: 12-25-2022 Patient encounter procedure Dionna Uriarte PA-C Work Phone: [facility] Comment on above: Medicare annual well ness visit, subsequent (Primary Dx); Essential hypertension, benign; Hyperlipidemia, mixed; Smoker; Adjustment disorder with depressed mood; Sleep apnea, unspecified type Start: 12-16-2022 End: 12-16-2022 Subsequent hospital visit by physician [facility] Work Phone: Radiology Comment on above: Acute pain of both k nees [M25.561, M25.562] Start: 11-23-2022 Refill Carl pham MD Work Phone: [facility] Comment on above: Refill Request Start: 10-05-2022 Refill Carl pham MD Work Phone: [facility] Comment on above: Refill Request Start: 07-06-2022 End: 07-06-2022 Patient encounter procedure Jono Johnson MD Work Phone: [facility] Comment on above: Acute cough (Primary Dx) Start: 07-02-2022 Refill Carl pham MD Work Phone: [facility] Comment on above: Refill Request Start: 05-11-2022 End: 05-11-2022 Patient encounter procedure Nurse [facility] Work Phone: [facility] Comment on above: Essential hypertensi on, benign (Primary Dx) Start: 01-02-2022 End: 01-02-2022 ambulatory Con Paiz PT [facility] Comment on above: Acute pain of right shoulder (Primary Dx); Right hip pain Start: 12-19-2021 End: 12-19-2021 ambulatory Con Paiz PT [facility] Comment on above: Acute pain of right shoulder; Right hip pain Start: 12-16-2021 Telephone encounter Carl Rendon MD Work Phone: [facility] Comment on above: Results Start: 12-15-2021 End: 12-15-2021 Subsequent hospital visit by physician Xr [facility] Work Phone: Radiology Comment on above: Acute pain of right shoulder [M25.511] Start: 12-15-2021 End: 12-15-2021 Patient encounter procedure Carl Rendon MD Work Phone: [facility] Comment on above: Medicare annual well ness visit, subsequent (Primary Dx); Essential hypertension, benign; Hyperlipidemia, mixed; Adjustment disorder with depressed mood; Smoker; Vasomotor rhinitis; Medication management; Living will on file; Advance directive discussed with patient; Acute pain of right shoulder; Right hip pain; Need for vaccination Procedures Date Procedure Procedure Detail Performing Clinician Start: 05-09-2025 Urnls dip stick/tabl et reagent auto microscopy Dr. Carl Rendon MD Work Phone: Start: 05-09-2025 Radiologic exam ches t [address] Carl Rendon MD Work Phone: Start: 05-09-2025 D-dimer assay, quantitative Dr. Carl Rendon MD Work Phone: Comment on above: NORMAL D-Dimer level (<0.50) indicates no DVT or PE. Start: 05-02-2025 Radiologic exam ches t [address] Carl Rendon MD Work Phone: Start: 05-02-[address] Carl Rendon MD Work Phone: Start: 04-10-2025 Radiologic exam ches t [address] Carl Rendon MD Work Phone: Start: 04-10-2025 D-dimer assay, quantitative Dr. Carl Rendon MD Work Phone: Comment on above: NORMAL D-Dimer level (<0.50) indicates no DVT or PE. Start: 03-13-2025 End: 03-13-2025 Ecg routine ecg w/least 12 lds i&r only [facility] Provider Start: 01-25-2025 SURGICAL PATHOLOGY Fidel Rendon MD Work Phone: Start: 01-08-2025 Adult depression scr eening assessment Noreen Camacho APRN.DIRECTOR ASSET Work Phone: Start: 12-27-2023 Adult depression scr eening assessment Dionna Uriarte PA-C Work Phone: Start: 12-16-2022 Radiologic exam knee complete 4/more views Carl Rendon MD Work Phone: Start: 12-15-2021 End: 12-15-2021 Radex hip unilateral with pelvis 2-3 views Carl Rendon MD Work Phone: Plan of Treatment Date Care Activity Detail Author Start: 01-07-2028 Diabetes Screening Diabetes Screenin g [facility] Start: 01-18-2027 Diabetes Screening Diabetes Screenin g [facility] Start: 01-03-2027 Diabetes Screening Diabetes Screenin g [facility] Start: 01-08-2026 Covid-19 Vaccine () Covid-19 Vaccine () [facility] Comment on above: Postponed from 10/19 (Declined at this time) Start: 01-08-2026 Depression Screening Depression Scre ening [facility] Start: 01-08-2026 Medicare Annual Well ness Visit Medicare Annual Wellness Visit [facility] Start: 01-08-2026 Urine microalbumin profile DTaP,Tdap,Td Vaccine (4 - Td or Tdap) [facility] Comment on above: Postponed from 03/30 (Insurance Coverage) Start: 12-25-2025 DIABETES SCREEN DIABETES SCREEN [facility] Start: 12-25-2025 Diabetes Screening Diabetes Screenin g [facility] Start: 07-02-2025 End: 07-02-2025 Patient encounter procedure 07/02/2025 8:20 AM EST Office Visit [facility] [address] [phone] Noreen Camacho APRN.DIRECTOR ASSET [address] [place] [address] 6 month follow up [facility] Comment on above: 6 month follow up Start: 06-22-2025 End: 09-21-2025 Basic metabolic 2000 panel - Serum or Plasma BASIC METABOLIC PANEL Lab Routine Essential hypertension, benign Expected: 06/22/2025, Expires: 09/21/2025 [facility] Comment on above: Expected: 06/22/2025 , Expires: 09/21/2025 Start: 06-22-2025 End: 09-21-2025 Thyrotropin [Units/volume] in Serum or Plasma THYROID STIMULATING HORMONE Lab Routine Medication management Expected: 06/22/2025, Expires: 09/21/2025 [facility] Work Phone: Comment on above: Expected: 06/22/2025 , Expires: 09/21/2025 Start: 06-19-2025 Cardioversion [facility] Start: 05-22-2025 Polysomnography [facility] Start: 05-21-2025 24 Hour ECG [facility] Start: 05-21-2025 End: 05-21-2025 Patient encounter procedure HFrEF (heart failure with reduced ejection fraction) -[facility] Work Phone: Start: 05-21-2025 End: 05-21-2025 Evaluation of diagnostic study results [facility] Start: 05-21-2025 Patient encounter procedure Registered Clinical -Laboratory Work Phone: Start: 05-18-2025 Non-patient / Non-visit Non-patient / Non-visit -[facility] Start: 05-18-2025 Patient encounter procedure Registered Clinical -Cardiovascular Services Work Phone: Start: 05-10-2025 End: 05-10-2025 Patient encounter procedure [facility] current use of amiodarone -[facility] Work Phone: Start: 05-10-2025 End: 05-10-2025 Evaluation of diagnostic study results [facility] Start: 05-09-2025 [facility] Start: 05-09-2025 Radiologic exam ches t 2 views Chest PA and Lateral [facility] Start: 05-09-2025 [facility] Start: 05-09-2025 End: 05-09-2025 Emergency department patient visit Departed Emergency -Emergency Department Work Phone: Start: 05-02-2025 [facility] Start: 05-02-2025 [facility] Start: 04-24-2025 Polysomnography [facility] Start: 04-24-2025 Patient encounter procedure Registered Clinical -Laboratory Work Phone: Start: 04-24-2025 End: 04-24-2025 Patient encounter procedure HTN (hypertension), benign -[facility] Work Phone: Start: 04-24-2025 End: 04-24-2025 Evaluation of diagnostic study results [facility] Start: 04-20-2025 Non-patient / Non-visit Non-patient / Non-visit -[facility] Work Phone: Start: 04-10-2025 End: 04-10-2025 Evaluation of diagnostic study results [facility] Start: 03-26-2025 Influenza vaccination Influenza Vacc ine (#1) [facility] Start: 03-16-2025 End: 03-16-2025 Evaluation of diagnostic study results [facility] Start: 02-07-2025 End: 02-07-2025 Nursing evaluation of patient and report 02/07/2025 9:15 AM EDT Nurse Visit Family [facility] [address] [place] [address] [place] [address] [place] [address] [id number] 12-14 day suture removal L upper arm. [facility] [place] Comment on above: 12-14 day suture rem oval L upper arm. Start: 01-25-2025 End: 01-25-2025 Patient encounter procedure 01/25/2025 9:00 AM EDT Office Visit [facility] [address] [place] [address] Carl Rendon MD [address] [place] [address] Lesion removal on left upper arm 40 minute appointment [facility] [place] Comment on above: Lesion removal on le ft upper arm 40 minute appointment Start: 01-08-2025 End: 01-08-2025 Patient encounter procedure [facility] [place] Comment on above: medicare wellness Start: 01-03-2025 End: 04-04-2025 CBC W Auto Differential panel - Blood COMPLETE BLOOD COUNT AND DIFFERENTIAL Lab Routine Hyperlipidemia, mixed Paroxysmal atrial fibrillation (HCC) Essential hypertension, benign Expected: 01/03/2025, Expires: 04/04/2025 [facility] Comment on above: Expected: 01/03/2025 , Expires: 04/04/2025 Start: 01-03-2025 End: 04-04-2025 Comprehensive metabolic 2000 panel - Serum or Plasma COMPREHENSIVE METABOLIC PANEL Lab Routine Hyperlipidemia, mixed Essential hypertension, benign Expected: 01/03/2025, Expires: 04/04/2025 [facility] Comment on above: Expected: 01/03/2025 , Expires: 04/04/2025 Start: 01-03-2025 End: 04-04-2025 LIPID PANEL, NONFASTING LIPID PANEL, NONFASTING Lab Routine Hyperlipidemia, mixed Expected: 01/03/2025, Expires: 04/04/2025 [facility] Work Phone: Comment on above: Expected: 01/03/2025 , Expires: 04/04/2025 Start: 01-03-2025 End: 04-04-2025 Urinalysis complete panel - Urine URINALYSIS, WITH MICROSCOPIC Lab Routine Essential hypertension, benign Expected: 01/03/2025, Expires: 04/04/2025 [facility] Comment on above: Expected: 01/03/2025 , Expires: 04/04/2025 Start: 12-26-2024 Depression Screening Depression Scre ening [facility] Start: 12-26-2024 Medicare Annual Well ness Visit Medicare Annual Wellness Visit [facility] Start: 12-15-2024 DIABETES SCREEN DIABETES SCREEN [facility] Start: 10-19-2024 Covid-19 Vaccine ( season) Covid-19 Vaccine () [facility] Start: 07-26-2024 Advance Directive Discussion Advance Directive Discussion [facility] Start: 07-05-2024 End: 07-05-2024 Patient encounter procedure 07/05/2024 1:00 PM EST Office Visit [facility] [address] [place], [place] [phone] Dionna Uriarte PA-C [address] [facility] [place] [address] Routine exam [facility] Comment on above: Routine exam Start: 04-28-2024 DIABETES SCREEN DIABETES SCREEN [facility] Start: 03-26-2024 Covid-19 Vaccine ( season) Covid-19 Vaccine ( season) [facility] Start: 03-26-2024 Influenza vaccination Influenza Vacc ine (#1) [facility] Start: 02-22-2024 End: 02-22-2024 Patient encounter procedure 02/22/2024 10:40 AM EDT Office Visit [facility] [address] [place] [address] Dionna Uriarte PA-C [address] [place] [address] 3 week med recheck [facility] Comment on above: 3 week med recheck Start: 02-09-2024 End: 02-09-2024 Patient encounter procedure 02/09/2024 10:20 AM EDT Office Visit [facility] [place] [address] [place] [address] Dionna Uriarte PA-C [address] [place] [address] med f/u [facility] Comment on above: med f/u Start: 02-01-2024 End: 02-01-2024 Patient encounter procedure 02/01/2024 10:20 AM EDT Office Visit [facility] [place] [address] [place] [address] Dionna Uriarte PA-C [address] [place] [address] med f/u [facility] Comment on above: med f/u Start: 01-19-2024 End: 04-19-2024 Comprehensive metabolic 2000 panel - Serum or Plasma COMPREHENSIVE METABOLIC PANEL Lab Routine Elevated LFTs Medication management Expected: 01/19/2024, Expires: 04/19/2024 [facility] Comment on above: Expected: 01/19/2024 , Expires: 04/19/2024 Start: 01-19-2024 End: 04-19-2024 Urinalysis complete panel - Urine URINALYSIS, WITH MICROSCOPIC Lab Routine Urine ketones Expected: 01/19/2024, Expires: 04/19/2024 [facility] Work Phone: Comment on above: Expected: 01/19/2024 , Expires: 04/19/2024 Start: 01-14-2024 End: 01-14-2024 Patient encounter procedure 01/14/2024 9:30 AM EDT Appointment Radiology [address] [place] [id number] Bone density Radiology Comment on above: Bone density Start: 01-12-2024 End: 01-12-2024 Patient encounter procedure 01/12/2024 12:40 PM EDT Office Visit Family [facility] [place] [address] [place] [address] Dionna Uriarte PA-C [address] [place] [address] hospital follow up [facility] Comment on above: hospital follow up Start: 12-27-2023 End: 03-27-2024 CBC W Auto Differential panel - Blood COMPLETE BLOOD COUNT AND DIFFERENTIAL Lab Routine Essential hypertension, benign Expected: 12/27/2023, Expires: 03/27/2024 [facility] Comment on above: Expected: 12/27/2023 , Expires: 03/27/2024 Start: 12-27-2023 End: 03-27-2024 Cobalamin (Vitamin B12) [Mass/volume] in Serum or Plasma VITAMIN B12 Lab Routine Fatigue, unspecified type Expected: 12/27/2023, Expires: 03/27/2024 [facility] Comment on above: Expected: 12/27/2023 , Expires: 03/27/2024 Start: 12-27-2023 End: 03-27-2024 Comprehensive metabolic 2000 panel - Serum or Plasma COMPREHENSIVE METABOLIC PANEL Lab Routine Essential hypertension, benign Expected: 12/27/2023, Expires: 03/27/2024 [facility] Comment on above: Expected: 12/27/2023 , Expires: 03/27/2024 Start: 12-27-2023 End: 03-27-2024 LIPID PANEL, NONFASTING LIPID PANEL, NONFASTING Lab Routine Hyperlipidemia, mixed Expected: 12/27/2023, Expires: 03/27/2024 [facility] Work Phone: Comment on above: Expected: 12/27/2023 , Expires: 03/27/2024 Start: 12-27-2023 End: 03-27-2024 Thyrotropin [Units/volume] in Serum or Plasma THYROID STIMULATING HORMONE Lab Routine Fatigue, unspecified type Expected: 12/27/2023, Expires: 03/27/2024 [facility] Comment on above: Expected: 12/27/2023 , Expires: 03/27/2024 Start: 12-27-2023 End: 03-27-2024 Urinalysis complete panel - Urine URINALYSIS, WITH MICROSCOPIC Lab Routine Essential hypertension, benign Expected: 12/27/2023, Expires: 03/27/2024 [facility] Comment on above: Expected: 12/27/2023 , Expires: 03/27/2024 Start: 12-27-2023 End: 12-27-2023 Patient encounter procedure 12/27/2023 8:00 AM EDT Office Visit [facility] [address] [place], [place] [phone] Dionna Uriarte PA-C [address] [facility] [place] [phone] medicare Wellness [facility] Comment on above: medicare Wellness Start: 09-24-2023 Covid-19 Vaccine ( season) Covid-19 Vaccine () [facility] Start: 07-26-2023 Advance Directive Discussion Advance Directive Discussion [facility] Start: 07-26-2023 Behavioral Health Screening Behavioral Health Screening [facility] Start: 03-26-2023 Covid-19 Vaccine ( season) Covid-19 Vaccine () [facility] Start: 03-26-2023 Influenza vaccination [facility] Start: 12-25-2022 End: 02-24-2023 CBC W Auto Differential panel - Blood [facility] Work Phone: Comment on above: Expected: 12/25/2022 , Expires: 02/24/2023 Start: 12-25-2022 End: 02-24-2023 Comprehensive metabolic 2000 panel - Serum or Plasma [facility] Work Phone: Comment on above: Expected: 12/25/2022 , Expires: 02/24/2023 Start: 12-25-2022 End: 02-24-2023 LIPID PANEL, NONFASTING [facility] Work Phone: Comment on above: Expected: 12/25/2022 , Expires: 02/24/2023 Start: 12-25-2022 End: 02-24-2023 Urinalysis complete panel - Urine [facility] Work Phone: Comment on above: Expected: 12/25/2022 , Expires: 02/24/2023 Start: 12-15-2022 SHINGRIX VACCINE (2 of 2) ROCHE GRIX VACCINE (2 of 2) [facility] Comment on above: Postponed from 02/28 (Insurance Coverage) Start: 08-01-2022 COVID-19 VACCINE (5 - Moderna series) COVID-19 VACCINE (5 - Moderna series) [facility] Start: 07-26-2022 ADVANCE DIRECTIVE DISCUSSION ADVANCE DIRECTIVE DISCUSSION [facility] Start: 07-26-2022 DEPRESSION ASSESSMENT DEPRESSION ASS ESSMENT [facility] Start: 03-30-2022 Urine microalbumin profile [facility] Start: 03-26-2022 Influenza vaccination INFLUENZA (#1) [facility] Start: 12-15-2021 End: 02-14-2022 Comprehensive metabolic 2000 panel - Serum or Plasma [facility] Work Phone: Comment on above: Expected: 12/15/2021 , Expires: 02/14/2022 Start: 12-15-2021 End: 02-14-2022 LIPID PANEL, NONFASTING [facility] Work Phone: Comment on above: Expected: 12/15/2021 , Expires: 02/14/2022 Start: 12-15-2021 End: 02-14-2022 Urinalysis complete panel - Urine [facility] Work Phone: Comment on above: Expected: 12/15/2021 , Expires: 02/14/2022 Start: 09-23-2021 COVID-19 VACCINE (4 - Booster for Moderna series) COVID-19 VACCINE (4 - Booster for Moderna series) [facility] Start: 07-26-2021 DEPRESSION ASSESSMENT DEPRESSION ASS ESSMENT [facility] Start: 1997 RSV Vaccine (1 - 1-d ose 60+ series) RSV Vaccine (1 - 1-dose 60+ series) [facility] Start: 1943 PNEUMOCOCCAL: 65+ (1 - PCV) PNEUMOCOCCAL: 65+ (1 - PCV) [facility] Basic metabolic 2008 panel with ionized calcium - Serum or Plasma [facility] End: 01-25-2025 BD DXA TRABECULAR BONE SCORE (TBS) BD DXA TRABECULAR BONE SCORE (TBS) Radiology Routine Asymptomatic menopausal state 1 Occurrences starting 12/27/2023 until 01/25/2025 [facility] Comment on above: 1 Occurrences starti ng 12/27/2023 until 01/25/2025 BD DXA TRABECULAR LOVE NE SCORE (TBS) BD DXA TRABECULAR BONE SCORE (TBS) Radiology Routine Asymptomatic menopausal state 01/14/2024 9:57 AM EDT [facility] Cardiac event recording [facility] CBC W Auto Different ial panel - Blood [facility] Comprehensive metabo lic 2000 panel - Serum or Plasma [facility] D-dimer assay, quantitative [facility] End: 01-25-2025 DXA Skeletal system.axial Views for bone density DXA-AXIAL SKELETON Radiology Routine Asymptomatic menopausal state 1 Occurrences starting 12/27/2023 until 01/25/2025 [facility] Comment on above: 1 Occurrences starti ng 12/27/2023 until 01/25/2025 DXA Skeletal system. axial Views for bone density DXA-AXIAL SKELETON Radiology Routine Asymptomatic menopausal state 01/14/2024 9:57 AM EDT [facility] Work Phone: ECG COMPLETE ECG COMPLETE ECG Routine Cardiac arrhythmia, unspecified cardiac arrhythmia type Ordered: 12/27/2023 [facility] Comment on above: Ordered: 12/27/[address] [facility] Work Phone: Comment on above: Ordered: 03/13/2025 Natriuretic peptide. B prohormone N-Terminal [Mass/volume] in Serum or Plasma [facility] NM Heart Views W str ess and W radionuclide IV [facility] Patient Education [facility] Work Phone: Prothrombin time [facility] PT PLAN OF CARE CERTIFICATION PT PLAN OF CARE CERTIFICATION Procedures Routine Acute pain of right shoulder Right hip pain Ordered: 12/19/2021 [facility] Work Phone: Comment on above: Ordered: 12/19/2021 PT PLAN OF CARE CERTIFICATION PT PLAN OF CARE CERTIFICATION Procedures Routine Acute pain of both knees Ordered: 12/30/2022 [facility] Comment on above: Ordered: 12/30/2022 Removal impacted cer umen irrigation/lvg unilat AMBULATORY EAR LAVAGE/IRRIGATION Procedures Routine Excessive ear wax, left Ordered: 01/08/2025 [facility] Comment on above: Ordered: 01/08/2025 Troponin T.cardiac [Mass/volume] in Serum or Plasma by High sensitivity method [facility] Heart [facility] XR Chest PA and Lateral [facility] Immunizations Immunization Date Immunization Notes Care Provider [facility] 05-25-2024 influenza, high dose seasonal, preservative-free Carl Rendon MD Work Phone: [facility] 05-25-2024 influenza virus vacc ine, unspecified formulation Carl Rendon MD Work Phone: [facility] 04-21-2024 COVID-19 vaccine, ag e 12+ yr (MODERNA) Dionna Uriarte PA-C Work Phone: [facility] 12-01-2023 COVID-19 vaccine, ag e 12+ yr, season (MODERNA) Dionna Uriarte PA-C Work Phone: [facility] 06-29-2023 respiratory syncytia l virus (RSV) vaccine, adjuvanted (AREXVY) Najma Sanabria MA [facility] 05-26-2023 COVID-19 vaccine, ag e 12+ yr, season (MODERNA) Najma Sanabria MA [facility] 05-18-2023 Influenza, high dose seasonal Dr. Carl Rendon MD Work Phone: [facility] 05-18-2023 influenza, high dose seasonal, preservative-free Carl Rendon MD Work Phone: [facility] 10-24-2023 influenza virus vacc ine, unspecified formulation Najma Daniele ALLEN [facility] 04-01-2022 Covid Moderna Bivale nt Booster Dr. Carl Rendon MD Work Phone: [facility] 12-15-2021 pneumococcal polysaccharide vaccine, 23 valent Carl Rendon MD Work Phone: [facility] 05-26-2021 Covid (Moderna) Dr. Carl Rendon MD Work Phone: [facility] 05-03-2021 zoster vaccine recombinant Nurse Wstr Work Phone: [facility] 04-28-2021 influenza, high-dose , quadrivalent vaccine (FLUZONE HIGH DOSE QUADRIVALENT) Carl Rendon MD Work Phone: [facility] 01-03-2021 zoster vaccine recombinant Carl Rendon MD Work Phone: [facility] 09-24-2020 COVID-19 vaccine, fu ll dose (MODERNA) Carl Rendon MD Work Phone: [facility] 08-27-2020 COVID-19 vaccine, fu ll dose (MODERNA) Cral Rendon MD Work Phone: [facility] 04-27-2020 influenza, high-dose , quadrivalent vaccine (FLUZONE HIGH DOSE QUADRIVALENT) Carl Rendon MD Work Phone: [facility] 05-30-2019 Influenza, high dose seasonal Dr. Carl Rendon MD Work Phone: [facility] 05-30-2019 influenza, high dose seasonal, preservative-free Carl Rendon MD Work Phone: [facility] 05-18-2018 Influenza, high dose seasonal Dr. Carl Rendon MD Work Phone: [facility] 05-18-2018 influenza, high dose seasonal, preservative-free Carl Rendon MD Work Phone: [facility] 06-23-2017 Influenza, high dose seasonal Dr. Carl Rendon MD Work Phone: [facility] 06-23-2017 influenza, high dose seasonal, preservative-free Carl Rendon MD Work Phone: [facility] Work Phone: 06-04-2016 influenza, high dose seasonal, preservative-free Carl Rendon MD Work Phone: [facility] 06-03-2015 Influenza, high dose seasonal Dr. Carl Rendon MD Work Phone: [facility] 06-03-2015 influenza, high dose seasonal, preservative-free Carl Rendon MD Work Phone: [facility] 06-03-2015 pneumococcal conjuga te vaccine, 13 valent Carl Rendon MD Work Phone: [facility] 05-09-2014 influenza, injectabl e, quadrivalent, preservative free Dr. Carl Rendon MD Work Phone: [facility] 05-09-2014 influenza, seasonal, injectable Carl Rendon MD Work Phone: [facility] 04-29-2013 influenza virus vacc ine, unspecified formulation Carl Rendon MD Work Phone: [facility] Work Phone: 05-13-2012 influenza virus vacc ine, unspecified formulation Carl Rendon MD Work Phone: [facility] 03-30-2012 tetanus toxoid, redu blanca diphtheria toxoid, and acellular pertussis vaccine, adsorbed Carl Rendon MD Work Phone: [facility] 06-06-2011 influenza virus vacc ine, unspecified formulation Carl Rendon MD Work Phone: [facility] Work Phone: 06-03-2010 influenza virus vacc ine, unspecified formulation Carl Rendon MD Work Phone: [facility] Work Phone: 04-30-2009 influenza virus vacc ine, unspecified formulation Carl Rendon MD Work Phone: [facility] Work Phone: 05-31-2007 influenza virus vacc ine, unspecified formulation Carl Rendon MD Work Phone: [facility] Work Phone: 05-31-2006 influenza virus vacc ine, unspecified formulation Carl Rendon MD Work Phone: [facility] Work Phone: 05-15-2005 pneumococcal polysaccharide vaccine, 23 valent Carl Rendon MD Work Phone: [facility] 01-06-1986 diphtheria and tetan us toxoids, adsorbed for pediatric use Carl Rednon MD Work Phone: [facility] Work Phone: 12-28-1980 diphtheria and tetan us toxoids, adsorbed for pediatric use Carl Rendon MD Work Phone: [facility] Work Phone: Payers Date Payer Category Payer Self-pay 2015 Private Health Insurance [employer] HU[employer] MEDICARE SUPPLEMENT [id number] 2015-Present [phone] [address] [address] [place] [address] Indemnity [id number] 2015 Private Health Insurance [id number] 2015 Private Health Insurance [id number] 2002 Medicare MEDICARE MEDICAR E A AND B [id number] 2002-Present [phone] [address] [address] [place] [address] Medicare [id number] 2002 Medicare [id number] 2002 Medicare [id number] [facility] [id number] .2.462 Unknown [id number] [id number] .2.462 Unknown [id number] 2.16.840.1.352828.3.579 .2.462 Unknown [id number] 2.16.840.1.049467.3.579 .2.462 Unknown [id number] 2.16.840.1.728329.3.579 .2.462 Unknown [id number] 2.16.840.1.117924.3.579 .2.462 Unknown [id number] 2.16.840.1.742368.3.579 .2.462 Unknown [id number] 2.16.840.1.058440.3.579 .2.462 Unknown [id number] 2.16.840.1.086655.3.579 .2.462 Unknown [id number] 2.16.840.1.884566.3.579 .2.462 Unknown [id number] 2.16.840.1.556950.3.579 .2.462 Unknown [id number] 2.16.840.1.704971.3.579 .2.462 Unknown [id number] 2.16.840.1.049145.3.579 .2.462 Unknown [id number] 2.16.840.1.789360.3.579 .2.462 Unknown [id number] 2.16.840.1.942838.3.579 .2.462 Unknown [id number] 2.16.840.1.824218.3.579 .2.462 Unknown [id number] 2.16.840.1.750889.3.579 .2.462 Unknown [id number] 2.16.840.1.844116.3.579 .2.462 Unknown [id number] 2.16.840.1.500974.3.579 .2.462 Unknown [id number] 2.16840.1.262328.3.579 .2.462 Unknown [id number] 2.16.840.1.454030.3.579 .2.462 Unknown [id number] Unknown [id number] Unknown [id number] Unknown [id number] Social History Date Type Detail Facility Start: 01-07-2006 End: 05-11-2022 Tobacco smoking status AKIS Occasional tobacco smoker [facility] Start: 01-07-2006 End: 12-27-2023 History of tobacco use Smoker [facility] Start: 01-11-2015 End: 07-05-2024 Tobacco use and exposure Smokeless tobacco non-user [facility] Start: 12-15-2021 End: 03-13-2025 Alcohol intake Current drinker of alcohol (finding) [facility] Start: 03-09-2020 History SDOH Alcohol Frequency 3 [facility] Start: 03-09-2020 History SDOH Alcohol Std Drinks 1 [facility] Start: 03-09-2020 History SDOH Social Connections Phone 5 [facility] Start: 03-09-2020 History SDOH Social Connections Get Together 98 [facility] Start: 03-09-2020 History SDOH Stress 2 [facility] Start: 03-09-2020 History SDOH Financial 4 [facility] Start: 03-09-2020 Education 21 [facility] Start: 1935 Sex Assigned At Not on file [facility] Start: 12-05-2021 End: 12-19-2021 Exposure to SARS-CoV-2 (event) Not sure [facility] Start: 1935 Sex Assigned At Female [facility] Start: 01-07-2006 End: 01-08-2008 History of tobacco use Cigarette Smoker [facility] End: 12-27-2023 History of tobacco use Pipe Smoker [facility] Work Phone: Start: 12-25-2022 Tobacco Comment Used to smoke cigarettes. Currently smokes a pipe with her occasionally [facility] Start: 12-25-2022 Alcohol Comment wine- 4-6 oz 5 times a week [facility] Start: 03-09-2020 End: 01-25-2025 History of Social function [facility] Start: 03-09-2020 End: 01-25-2025 Social connection and isolation panel [facility] Start: 06-26-2012 How often do you get together with friends or relatives? Patient refused [facility] Do you belong to any clubs or organizations such as roman catholic groups, unions, fraternal or athletic groups, or school groups? Yes [facility] Are you now , , , , never or living with a partner? [facility] How often to you hav e a drink containing alcohol? 2-4 times a month [facility] How many standard dr inks containing alcohol do you have on a typical day? 1 or 2 [facility] How often do you hav e 6 or more drinks on 1 occasion? Never [facility] How hard is it for y ou to pay for the very basics like food, housing, medical care, and heating Not very hard [facility] Do you feel stress - tense, restless, nervous, or anxious, or unable to sleep at night because your mind is troubled all the time - these days [OSQ] Only a little [facility] (I/We) worried wheth er (my/our) food would run out before (I/we) got money to buy more. Never true [facility] In the past 12 month s, was there a time when you were not able to pay the mortgage or rent on time? No [facility] Start: 12-18-2021 Gender identity Identifies as female gender (finding) [facility] How often to you hav e a drink containing alcohol? 2-3 time sa week [facility] Start: 01-12-2024 End: 05-09-2025 Tobacco smoking status NHIS Ex-smoker [facility] Start: 02-01-2024 Tobacco Comment Used to smoke cigarettes. [facility] Functional Status Date Assessment Result Facility 01-08-2025 Total score [AUDIT-C] 3 01/09/20 25 7:52 AM Najma See MA [facility] 01-30-2015 Are you deaf, or do you have serious difficulty hearing No 01/30/2015 2:14 PM Devi Fuchs LPN No [facility] 01-30-2015 Are you blind, or do you have serious difficulty seeing, even when wearing glasses No 01/30/2015 2:14 PM EDT Devi Presley LPN No [facility] 01-30-2015 Do you have serious difficulty walking or climbing stairs No 01/30/2015 2:14 PM EDT Devi Presley LPN No [facility] 01-30-2015 Do you have difficul ty dressing or bathing No 01/30/2015 2:14 PM Devi Fuchs LPN No [facility] 01-30-2015 Because of a physica l, mental, or emotional condition, do you have difficulty doing errands alone such as visiting a physician's office or shopping No 01/30/2015 2:14 PM Devi Fuchs LPN No [facility] Mental Status Date Assessment Result Facility 05-09-2025 Cognitive function Level Of Cons ciousness Awake [facility] Work Phone: 01-30-2015 Because of a physica l, mental, or emotional condition, do you have serious difficulty concentrating, remembering, or making decisions No 01/30/2015 2:14 PM Devi Fuchs LPN [facility] Clinical Notes 06-13-2013 to 05-29-2025 Note Date & Type Note Facility 05-29-2025 Note HNO ID: [id number] Author: BRIT MÉNDEZ MA Service: ? Author Type: Senior Software Qa Analyst Type: Progress Notes Filed: 05/29/2025 10:27 Note Text: Scan on 05/28/2025 6:36 PM by Provider, External, PA-C: [facility] 05-23-2025 Note HNO ID: [id number] Author: ODALIS ROMO MD Service: ? Author Type: Respiratory Therapist Type: Procedures Filed: 05/24/2025 04:50 Note Text: Attestation signed by Odalis Romo MD at 05/24/2025 4:50 AM The patient was able to successfully complete the testing session, both at rest and with ambulation. During rest, the patient remained normoxemic on room air. During activity, the patient remained normoxemic on room air. Conclusion There is no direct correlation between the magnitude of shortness of breath and the severity of hypoxemia. Odalis Romo MD May 24, 2025 4:50 AM RESPIRATORY THERAPY OXIMETRY WITH AMBULATION Oximetry with Ambulation Test for This Encounter O2 Device O2 Adapter NC O2 Flow SpO2% HR Activity Ft Walked (ft) Time (min) Avg Speed (MPH) R/A 99 53 Resting R/A 100 63 Walking 240 3 0.91 General Information Pulse Oximetry Site Total Time Spent Walking Assistance/O2 Supply Carrier Forehead 30 None Comment: NAME: SABRINA Herrera PATIENT NAME: Cheryl Abarca DATE: May 23, 2025 TIME: 3:26 PM OXIMETRY [facility] 05-22-2025 Note HNO ID: [id number] Author: RUTH BLAKE LPN Service: ? Author Type: Licensed Nurse Type: Progress Notes Filed: 05/22/2025 07:05 Note Text: Scan on 05/21/2025 9:33 PM by Provider, RUPINDER BillsC: Consultation - Cardiology [facility] 05-21-2025 Note HNO ID: [id number] Author: BRENDA OLEARY MA Service: ? Author Type: Senior Software Qa Analyst Type: Progress Notes Filed: 05/21/2025 10:56 Note Text: Scan on 05/21/2025 9:04 AM by Provider, External, PALeroyC: Chemistry [facility] 05-19-2025 Note HNO ID: [id number] Author: CARL RENDON MD Service: ? Author Type: Physician Type: Progress Notes Filed: 05/19/2025 13:59 Note Text: Chief Complaint Patient presents with: Hospital Follow Up HPI Cheryl Abarca is a 89 year old female who presents here today for a Hospital follow up. Patient seen at [facility] ED on 05/09/25 [facility] ED visit: History of Present Illness Chief Complaint: General Illness Narrative: Chief complaint and HPI: 89-year-old female with past medical history of atrial fibrillation with RVR on Eliquis, HTN, sleep apnea presents for evaluation of dyspnea and dry heaving. Patient states for the past couple weeks she has been having episodic dyspnea with activity and orthopnea. States she gets these episodes of dry heaving as well. She states she was seated recently seen in our emergency department for same symptom 05/02. I reviewed the note at that time in which she was in A- fib with RVR. She was ultimately discharged home with cardiology follow-up. Patient states she was post have a follow-up appointment with cardiology yesterday however it was canceled. States this morning shortly after waking up she had a dry heaving episode that led to dyspnea which is why she presents. She denies any fever, chills, chest pain, abdominal pain D-DIMER QUANT 0.30 FEU/ug/m Imaging: RAD/Chest PA and Lateral IMPRESSION: There is mild cardiomegaly with mild central vascular congestion. Atrial fibrillation with rapid ventricular response Left axis deviation Left bundle branch block Abnormal ECG Confirmed by YURI TA MD ([id number]), editor department PATRICIA CARPENTER ([id number]) on 05/10/2025 10:00:00 AM Referred By: Confirmed By: YURI TA MD Cheryl Abarca is an 89-year-old female with a history of atrial fibrillation, presenting with nocturnal dyspnea, fatigue, and evening nausea and gagging. Cheryl reports persistent nocturnal dyspnea, requiring her to sit up to alleviate symptoms. She wakes up approximately three times per night due to dyspnea, which can last for an extended period, making it difficult to return to sleep. She goes to bed between 2100 and 2200 and wakes up around 0730. She denies nocturia, chest pain, or chest pressure. She also experiences dyspnea during the day, particularly when walking, and reports increased fatigue. She has a sleep study scheduled for next week. She has a CO2 monitor in her home, and the levels are reported as normal. Cheryl also experiences evening nausea and gagging, which she attributes to mucus drainage. She denies dysphagia or issues with liquids causing gagging. She has found that eating a peanut butter and bread sandwich with her evening medications has alleviated the nausea. She drinks evaristo sulma and has not taken Pepto-Bismol due to concerns about interactions with Eliquis 5 mg. She denies emesis. Cheryl reports feeling anxious during episodes of dyspnea but is unsure if this is related to her nausea and gagging. She is currently taking buspirone 7.5 mg, two tablets twice a day, and Effexor. She denies increasing the dosage of Effexor. Cheryl has been diagnosed with atrial fibrillation and was previously on amiodarone, which was discontinued due to bradycardia. She is currently on Eliquis 5 mg. She denies having a stress test ordered. She is seeing [facility] and a recent echo showed mild global hypokensis of the left ventricle with an EF of 40% and mildly dilated left ajnd right atrai. Her echo in 12/2023 had an EF of 50% Cheryl has been engaging in light exercise at the wellness center, using the NuStep machine at level 1 for 15 minutes. She denies experiencing significant dyspnea, chest heaviness, or nausea during exercise. Past medical history, appointments, medications, allergies reviewed. [...] Diverticulitis of colon (without mention of hemorrhage)(562.11) Elevated blood sugar 05/11/2025 Essential hypertension, benign 01/06/2008 LIZZY (generalized anxiety disorder) 02/01/2024 [facility] for counseling. 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 [facility] 05-19-2025 Note HNO ID: [id number] Author: BRIT MÉNDEZ MA Service: ? Author Type: Senior Software Qa Analyst Type: Progress Notes Filed: 05/19/2025 09:34 Note Text: Scan on 05/18/2025 4:29 PM by Provider, External, PA-C: Echo [facility] 05-10-2025 Progress note [facility] 05-09-2025 Note HNO ID: [id number] Author: RUTH BLAKE LPN Service: ? Author Type: Licensed Nurse Type: Progress Notes Filed: 05/09/2025 14:09 Note Text: Pt had f/u scheduled with Cardiology. Scan on 05/09/2025 12:27 PM by Provider, External, PA-C: Consultation - Emergency Medicine [facility] 05-09-2025 Discharge summary [facility] 05-09-2025 Radiology Diagnostic study note [facility] Imaging Services [address] [place] [address] Chest PA and Lateral MR#: [id number] Acct: [id number] Name: CHERYL ABARCA Rep #: [id number] : 1935 F [id number] From: Goran Hernandez MD PCP: Dr. Carl Rendon MD Status: REG ER Study:Chest PA and Lateral Date of Exam: 05/09/25 Exam# [id number] Ordering Dr: Isidoro Williamson DO PROCEDURE: CHEST PA AND LATERAL 05/09/2025 REASON FOR EXAM: SHORTNESS OF BREATH TECHNIQUE: Procedure Code: RADCXR Modality: DX Procedure: CHEST PA AND LATERAL COMPARISON: May 02, 2025 FINDINGS: There is mild cardiomegaly with mild central vascular congestion. There is no pneumothorax or effusion. There is no acute bony abnormality. Aortic calcifications are visible. RAD/Chest PA and Lateral IMPRESSION: There is mild cardiomegaly with mild central vascular congestion. Reading Location: [facility] CC: Dr. Isidoro Medrano DO; Dr. 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 Author Type: Senior Software Qa Analyst Type: Progress Notes Filed: 05/03/2025 17:24 Note Text: Scan on 05/02/2025 3:53 PM by Provider, Sanju, PA-C: [facility] 05-03-2025 Note HNO ID: [id number] Author: BRIT MÉNDEZ MA Service: ? Author Type: Senior Software Qa Analyst Type: Progress Notes Filed: 05/03/2025 09:51 Note Text: Scan on 05/02/2025 3:53 PM by Provider, Sanju PA-C: [facility] 05-02-2025 Discharge summary [facility] 05-02-2025 Discharge summary Note Date/Time May 02, 2025 3:25pm [facility] Medical Records Department [address] [place] [address] Emergency Department Summary 05/02/25 MR#: [id number] Acct: [id number] Name: CHERYL ABARCA Rep #:[id number] : 1935 89 From: Dougie Rivero MD PCP: Dr. Carl Rendon MD Status:REG ER Location: ED HPI History of Present Illness Chief Complaint: Shortness of Breath Detail of Chief Complaint: Dyspnea, dyspnea on exertion and increased orthopnea Informant: patient and spouse/S.O. Onset/Context/Timing Onset: Weeks Context: gradual Timing: Continuous and Waxes and wanes Quality: Positive for Dyspnea on exertion and Orthopnea; Negative for PND or Wheezing Current Severity: Gone Maximum Severity: Moderate Worsened by: Exertion and Lying flat; Not Worsened By Coughing Relieved by: Nothing Associated Symptoms Negative for cough, rhinorrhea, post nasal drip, ear pain, fever, sore throat, subjective, chills or sweats Chest Pain: Positive for None Narrative Narrative: Patient is an 89-year-old woman. She is on anticoagulant for paroxysmal atrial fibrillation. She states her furosemide was recently changed to torsemide. Sheis not certain of the strength. There is also history of hypertension, hypercholesterolemia. She is on metoprolol 25 mg twice daily. She is also on an amiodarone. She had a recent visit with cardiology. No authored by Dontrell Luque was reviewed. Patient was hospitalized in December for congestive heart failure exacerbation. She also had A-fib with RVR. She spontaneously convertedduring her hospital stay. She had a recent CTA of her chest that revealed no evidence of pulmonary embolus or evidence of heart strain. There was small bilateral pleural effusions noted with interstitial edema noted as well. There is also mild cardiomegaly. Echocardiogram was performed December 28, 2023. Estimated EF was 50%. There is mild concentric left ventricular hypertrophy. Bubble contrast study was negative for [id number] intra-arterial shunt. She does have stage III diastolic dysfunction noted. Patient presents with a couple of weeks of dyspnea with activity and orthopnea. She states she sleeps with a large pillow and sofa pillow. She has had some swelling of her legs. She states her diuretic was recently changed. She denies chest pressure, tightness, heaviness or any type of chest pain. She denies fever, chills or night sweats. She has had no weight gain or weight lossto her knowledge. She denies abdominal pain, nausea, vomit or diarrhea. Denies black or maroon-colored stool. She is on apixaban 5 mg twice daily. PE Risk Factors: Negative for Cancer, OCP + Smoking + > 35, Prior DVT or PE, Recent immobilization, Recent surgery or Recent travel Prior similar symptoms: Yes Recent Illness/Hospitalization: Yes (December 2023.) [facility] Medical History HTN (hypertension), benign Paroxysmal atrial fibrillation Bradycardia Anxiety and depression Smoker Sleep apnea HTN (hypertension) Afib Home Medications ?Medication ?Instructions ?Recorded ?Last Taken ?Type losartan 100 mg tablet 100 mg PO DAILY blood pressu re 12/28/23 05/01/25 History simvastatin 20 mg tablet 20 mg PO QHS cholesterol 11/1605/01/25 History calcium carbonate (Tums) 300 mg PO BID 04/12/24 Unkno wn History venlafaxine 150 mg 150 mg PO QHS 04/12/2405/01 History capsule,extended release 24 hr apixaban 5 mg tablet (Eliquis) 5 mg PO BID #180 TABLET S 12/29/24 05/01/25 Rx latanoprost 0.005 % eye drops 1 drp ophthalmic (eye) Q DAY 03/16/25 Unknown History spironolactone 25 mg tablet 25 mg PO QDAY #90 tabs 05/01/25 Rx vit C 250 mg-vit E 90 mg-zinc 40 1 tab PO BID 04/10/25 05/01/25 History mg-copper 1 ge-xbslil-swlowx capsule (PreserVision AREDS-2) amiodarone 200 mg tablet 200 mg PO QDAY #30 tabs 03/2605/01/25 Rx buspirone 15 mg tablet 15 mg PO BID 04/20/25 History cholecalciferol (vitamin D3) 50 2,000 unit PO QDAY 05/01/25 History mcg (2,000 unit) tablet metoprolol succinate 25 mg 25 mg PO BID #60 tabs 04/2405/01/25 Rx tablet,extended release 24 hr torsemide 20 mg tablet 20 mg PO QAM #30 tabs 05/01/25 Rx benzonatate 200 mg capsule 200 mg PO TID PRN PRN cough 05/02/25 Unknown History cefadroxil 500 mg capsule 500 mg PO BID 05/02/2505/01 History Allergy/AdvReac Type Severity Reaction Status Date / Time sulfamethoxazole (From Allergy Intermediate Rash Verified 05/02/25 10:30 Bactrim) trimethoprim (From Bactrim) Allergy Intermediate Rash Verified 05/02/25 10:30 Sulfa (Sulfonamide Allergy Mild Rash Verified 05/02/25 10:30 Antibiotics) Family History Mother Hypertension Grandfather Hypertension Grandmother Hypertension Father Cancer Surgical History History of tonsillectomy History of carpal tunnel release Social History household members: spouse Smoking Status: Former smoker how long ago did patient quit smokin12/30/2023 alcohol intake: current alcohol intake frequency: holidays/special occasions only substance use type: does not use caffeine: No ROS ROS ED Constitutional Constitutional ED: Denies chills, fever(s), sweats or weight loss Eyes Eyes: Denies blurry vision or change in vision ENT ENT ED: Denies ear pain or rhinorrhea Cardiovascular Cardiovascular: Reports orthopnea; Denies chest pain, palpitations, paroxysmal nocturnal dyspnea or racing heartbeat Respiratory/Chest Respiratory/Chest: Reports dyspnea, dyspnea on exertion and orthopnea; Denies cough or paroxysmal nocturnal dyspnea Gastrointestinal Gastrointestinal: Denies abdominal pain, melena, nausea or vomiting Genitourinary Genitourinary ED: Denies dysuria, hematuria or urinary frequency Musculoskeletal Musculoskeletal: Denies arthralgias, back pain or myalgias Integumentary Denies rash Neurologic Neurologic: Denies weakness Hematologic/Lymphatic Hematologic/Lymphatic: Reports easy bruising; Denies easy bleeding EXAM Physical Exam Const Vital Signs: 05/02/25 10:28 05/02/25 10:38 05/02/25 12:30 Temperature 97.6 F L Temperature Source Oral Pulse Rate 128 H 98 Respiratory Rate 24 H 11 L Respiratory Effort Short of Breath Respiratory Depth Normal Respiratory Pattern Tachypnea Blood Pressure 138/97 H 117/78 Blood Pressure Mean 110 91 Pulse Ox 97 98 Oxygen Delivery Method Room Air Room Air Room Air 05/02/25 14:00 Temperature Temperature Source Pulse Rate 107 H Respiratory Rate 12 Respiratory Effort Respiratory Depth Respiratory Pattern Blood Pressure 130/63 H Blood Pressure Mean 85 Pulse Ox 95 Oxygen Delivery Method Room Air Positive well nourished and well developed Constitutional Narrative: Patient appears in no distress. Vital signs are remarkable for elevated blood pressure, heart rate and respiratory rate. She is not hypoxic on room air. General Appearance ED: well developed; Negative for pallor HEENT HEENT Narrative: Head is atraumatic normocephalic. Ears normal. Nares patent. Eyes PERRL and EOMs intact bilaterally General Eye ED: Negative for pale conjunctiva or scleral icterus Neck no lymphadenopathy, supple, no meningeal signs and no JVD Resp normal respiratory effort and clear to auscultation bilaterally Cardio S1 normal heart sound, S2 normal heart sound and no murmurs Rate: tachycardic Rhythm: abnormal rhythm irregularly irregular GI non-tender, non-distended and no masses Auscultation: normoactive bowel sounds Palpation: soft Extremity Extremity Narrative: Otherwise negative. General Extremety ED: Yes edema General Extremity: edema Neuro oriented x3 and CN's II-XII intact bilaterally Bam Coma Scale: document GCS findings Psych mental status grossly normal Skin no wounds and skin turgor normal General Skin Exam: Negative for jaundice or pallor Lesions: no lesions Rashes: no rashes MDM MDM MDM Narrative Medical decision making narrative: Patient with A-fib with RVR. Will administer metoprolol for rate control. Willobtain chest x-ray BMP to assess for congestive heart failure exacerbation, clinically she is mildly overloaded. Suspect this is more right heart failure. Troponin was obtained to rule out cardiac ischemia. Since has been on for weeksof the first troponin is normal will not repeat 2-hour 4-hour. CBC to assess H&H and rule out anemia. BMP to assess renal function especially since she had her diuretic recently changed. History & Record Review Additional record(s) reviewed:: Prior inpatient record (Hospitalization December 28, 2023. She was diagnosed with CHF and A-fib RVR at that time.), Prior outpatientrecord (Office notes by cardiology reviewed in its entirety. This was all thirdSeptember 2024.) and Prior labs Lab Data Attestation: I reviewed the patient's lab results. Lab results narrative: CBC reveals slight elevation white count with slight shift. First troponin is elevated at 21. 2-hour troponin was 22 with a delta of 1. BNP is 6615. Labs: Laboratory Results - last 24 hr 05/02/25 05/02/25 11:00 13:10 WBC 13.0 H RBC 4.04 L Hgb 12.9 Hct 37.8 MCV 93.6 MCH 31.9 MCHC 34.1 RDW Std Deviation 51.2 H RDW Coeff of Angie 14.9 H Plt Count 258 MPV 9.4 Immature Gran % (Auto) 1.500 H Neut % (Auto) 89.3 H Lymph % (Auto) 5.6 L [place] % (Auto) 2.7 Eos % (Auto) 0.5 Baso % (Auto) 0.4 Absolute Neuts (auto) 11.6 H Absolute Lymphs (auto) 0.72 L Nucleated RBC % 0 Sodium 140 Potassium 3.7 Chloride 104 Carbon Dioxide 21.2 Anion Gap 15 BUN 25 H Creatinine 1.20 Estim Creat Clear Calc 29.81 L Est GFR (MDRD) Non-Af 44 L BUN/Creatinine Ratio 20.9 H Glucose 213 H Calcium 9.2 Troponin T High Sens 21 H Troponin T Hi Sens 2 Hr 22 H NT pro BNP II 6615 H Radiography Chest X-Ray - ED: 2 View and Read by ED Physician (2 view chest x-ray and pulmonary reviewed interpreted by me as remarkable for mild interstitial pulm edema/CHF. There is a small left pleural effusion. There is no infiltrate. There is no evidence of cardiomegaly. There is degenerative changes of the thoracic spine.) Diagnostic Testing: Clinical Impression(s) from Imaging Studies Chest X-Ray 05/02/25 11:04 IMPRESSION: A small left pleural effusion is seen. No pneumothorax is noted. Mild Interstitial Pulmonary Edema is noted. No focal infiltrate is seen. The cardiomediastinal silhouette is stable, without evidence of cardiomegaly. Phaz-py-nebapssa degenerative changes of the visualized spine are also seen. Reading Location: [place] [address] EKG Initial EKG: Attestation: I personally reviewed and interpreted this EKG as follows: Interpretation: Atrial Fibrillation (Rate is 127. QRS is prolonged at 136ms. QT is 380 with a QTc of 552 which is prolonged. [place] is to the left. There is an ossific changes which is probably due to the A-fib RVR.) Treatment and Re-Evaluation :: Pulse ox is 9495% with ambulation. Patient was informed of plan. She is accepting of this. She is to call the cardiology office for appointment earlierthan previously scheduled. Heart rate at the time of discharge is 96. Discharge Plan Triage Chief Complaint: Shortness of Breath ED Provider: Dougie Rivero Dx/Rx/DC Orders Clinical Impression: Atrial fibrillation with RVR, Diastolic CHF, acute on chronic, Anticoagulant long-term use, [facility] current use of amiodarone, Edema of left lower extremity, HTN (hypertension), benign Instructions: ED AFIB, ED CHF Left Side Prescriptions: No Action venlafaxine 150 mg capsule,extended release 24hr 150 mg PO QHS Tums 300 mg (750 mg) tablet,chewable 300 mg PO BID cholecalciferol (vitamin D3) 50 mcg (2,000 unit) tablet 2,000 unit PO QDAY latanoprost 0.005 % drops 1 drp ophthalmic (eye) QDAY torsemide 20 mg tablet 20 mg PO QAM Qty: 30 0RF metoprolol succinate 25 mg tablet extended release 24 hr 25 mg PO BID Qty: 60 3RF PreserVision AREDS-2 250-90-40-1 mg capsule 1 tab PO BID spironolactone 25 mg tablet 25 mg PO QDAY Qty: 90 3RF buspirone 15 mg tablet 15 mg PO BID simvastatin 20 mg tablet 20 mg PO QHS losartan 100 mg tablet 100 mg PO DAILY benzonatate 200 mg capsule 200 mg PO TID PRN PRN (Reason: cough) cefadroxil 500 mg capsule 500 mg PO BID Eliquis 5 mg tablet 5 mg PO BID Qty: 180 3RF amiodarone 200 mg tablet 200 mg PO QDAY Qty: 30 3RF Patient Comments: 200MG TWICE DAILY ON 01/05-01/12, THEN ON 01/13 200MG ONCE DAILY Primary Care Provider: Carl Rendon Referrals: Carl Rendon MD [Primary Care Provider, Family Practice] Activity Restrictions/Additional Instructions: 1. Call cardiology office in the morning to get seen within the next 3 to 5 days. 2. Increase your torsemide 20 mg to 2 in the morning for the next 3 days. 3. Continue to take metoprolol 25 mg in the morning and take 2 at night Print Language: Somali Disposition Disposition: Home, Self Care What to do if you have Problems For any increased pain, shortness of breath, bleeding, nausea or vomiting, chestpain, or any unexpected problems, contact your Primary Care Provider. Call [facility] ([phone]) or report to the closest Emergency Room. Call 911 if necessary. 05/02/25 1525 <Electronically signed by Dougie Rivero MD> Cosigner Signature (if applicable): CC: Dr. Carl Rendon MD ~ Signed [facility] Work Phone: 1(243) 935-158610-08-2025 Radiology Diagnostic study note [facility] Imaging Services [address] [address] Chest PA and Lateral MR#: [id number] Acct: [id number] Name: CHERYL ABARCA Rep #: [id number] : 1935 F 89 From: Chevy Ahuja MD PCP: Dr. Carl Rendon MD Status: REG ER Study:Chest PA and Lateral Date of Exam: 05/02/25 Exam# [id number] Ordering Dr: Leon Rivero MD PROCEDURE: CHEST PA AND LATERAL 05/02/2025 REASON FOR EXAM: DYSPNEA, CASTANON, BILATERAL EDEMA, HX CHF TECHNIQUE: Procedure Code: RADCXR Modality: DX Procedure: CHEST PA AND LATERAL COMPARISON: PA and lateral chest of 04/10/2025. RAD/Chest PA and Lateral IMPRESSION: A small left pleural effusion is seen. No pneumothorax is noted. Mild Interstitial Pulmonary Edema is noted. No focal infiltrate is seen. The cardiomediastinal silhouette is stable, without evidence of cardiomegaly. Gtpx-gc-vosghrwl degenerative changes of the visualized spine are also seen. Reading Location: [place] [address] CC: Dr. Carl Rendon MD; Dr. Dougie Rivero MD ~ 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Signed [facility]10-08-2025 NoteHNO ID: [id number] Author: OMARI NAVAS APRN.DIRECTOR ASSET Service: ? Author Type: Nurse Practitioner Type: Progress Notes Filed: 05/02/2025 10:30 Note Text: Patient triaged at urgent care. Here today with dizziness, sob. Hx of afib uncontrolled. I will refer to ER. Prefers pov. Unclear what hospital will go to at this time.[facility]10-01-2025 NoteHNO ID: [id number] Author: DIONNA URIARTE PA-C Service: ? Author Type: Physician Armature Winder Repairer Type: Progress Notes Filed: 04/25/2025 10:16 Note [...] symptoms worsening before an upcoming trip to [place] on Wednesday. Atrial Fibrillation: - Managed by [...] SURGICAL HISTORY Procedure Laterality Date ADENOIDECTOMY PRIMARY Adenoidectomy COLONOSCOPY FLX DX W/COLLJ SPEC WHEN PFRMD 02/08/2013 Colonoscopy COLONOSCOPY W/BIOPSY SINGLE/MULTIPLE 01/02/2002 Repeat in ECHO 10/29/2023 EGD 08/15/2004 PAST SURGICAL HISTORY OF RIGHT NEEDLE BIOPSY, Breast PAST SURGICAL HISTORY OF 11/23/2006 MOHS-PRECANCEROUS AREA ON LEFT EYEBROW. PAST SURGICAL HISTORY OF Right 11/2024 right 2nd toe. PLC BREAST CLIP PERC Left breast TONSILLECTOMY PRIMARY/SECONDARY Tonsillectomy Family History FAMILY HISTORY Problem Relation [...] SOCIAL HISTORY[1] Review of Symptoms REVIEW OF SY (more content not included)...[facility]09-30-2025 NoteHNO ID: [id number] Author: BRIT MÉNDEZ MA Service: ? Author Type: Senior Software Qa Analyst Type: Progress Notes Filed: 04/26/2025 08:16 Note Text: Scan on 04/24/2025 1:14 PM by ProviderSanju PALeroyC: [facility] OV: Scan on 04/25/2025 10:47 AM by Sanju Corey PALeroyC: [facility]09-30-2025 Progress [facility] [address] [place] [address]. [address] [place] [address] OFFICE VISIT Date of Service: 04/24/25 MR#: [id number] Acct: [id number] Name: CHERYL ABARCA Rep #: [id number] : 1935 Provider: NKECHI Wyman Age/Sex: 89/F Location: [facility] [place] [facility] Status: Signed HPI HPI History of Present Illness Details: Cheryl Abarca is an 89-year-old female who presents to office today for follow-up. She was evaluated at [facility] 12/27 - 12/30/2023 for congestive heart failure exacerbation. She was noted to be in atrial fibrillation at a rate of 120-140 bpm. Initial recommendation was to have her m etoprolol increased. She converted to sinus rhythm prior to discharge. Her exacerbation was thoughtto be related to new onset atrial fibrillation. Echocardiogram demonstrated ejection fraction of 50% and stage III diastolic dysfunction. Left and right atrium were noted to be normal size, PASP was 38 mmHg. She presented to [facility] emergency room 01/02/2024 with concerns of tachycardia andher medications were adjusted. Patient saw her primary care physician 03/13/2025 for acute concerns of shortnessof breath, dizziness and hypertension noted to be as high as 205/100 at home. EKG at her primary care physician's office that day demonstrated atrial flutter versus atrial fibrillation at a rate of 92 bpm. After consultation with storage receipt poster, primary care physician discontinued amlodipine and initiated metoprolol 50 mg XL daily. She followed up in our office and her amiodarone wasdecreased to 100 mg as EKG demonstrated a prolonged QTc. Additional follow-up in the office with improvement in QTc resulted in decrease in metoprolol and increased back to 200 mg for her amiodarone. She also reported lower extremity edema and significant shortness of breath with an elevated NT proBNP and was treated with diuresis. Upon presentation today, patient reports ongoing SOB. She continues to notice orthopnea sleeping beau recliner for about a week now. She has not been weighingherself daily at home. She is down 1 lb in 2 weeks according to our scale. 130s/90s is reported home BP findings. She reports ongoing fatigue. She reports ongoing LE edema and is now noticed more in her right side than it was 2 weeks ago. Further ROS below. STOP-BANG Assessment: 1. Do you snore? yes 2. Are you frequently tired during the day? yes 3. Have you been observed gasping or choking while asleep? no 4. Do you have high blood pressure? yes 5. BMI - greater than 35kg/m2? No 6. Age - over 50 years old? yes 7. Neck Circumference - greater than 37 cm for females or 40 cm for males? No 8. Gender - male? no Total STOP-BANG score = 3 which indicates high risk for obstructive sleep apnea (yes to 3 or more questions = high risk of sleep apnea). Intake Vital Signs 03/16/25 09:08 04/24/25 07:54 Height 5 ft 2 in 5 ft 2 in Weight: 158 lb BMI 28.9 BP 126/77 H Blood Pressure Location Lt brachial Position Sitting Respiration 18 Pulse 102 H Pulse Source Monitor Pulse Oximetry (%) 97 Intake Visit Reasons: PER SD/NEEDS EKG Anesthetic Assistant Required: No Is patient in pain?: No Allergies sulfamethoxazole (From Bactrim) Allergy (Intermediate, Verified 04/24/25 09:24) Rash trimethoprim (From Bactrim) Allergy (Intermediate, Verified 04/24/25 09:24) Rash Sulfa (Sulfonamide Antibiotics) Allergy (Mild, Verified 04/24/25 09:24) Rash Medications ?Medication ?Instructions ?Recorded ?Confirmed ?Type losartan 100 mg tablet 100 mg PO DAILY blood pressu re 12/28/23 04/24/25 History simvastatin 20 mg tablet 20 mg PO QHS cholesterol 11/1604/24/25 History calcium carbonate (Tums) 300 mg PO BID 04/12/2404/24 History venlafaxine 150 mg 150 mg PO QHS 04/12/2404/24 History capsule,extended release 24 hr apixaban 5 mg tablet (Eliquis) 5 mg PO BID #180 TABLET S 12/29/24 04/24/25 Rx latanoprost 0.005 % eye drops 1 drp ophthalmic (eye) Q DAY 03/16/25 04/24/25 History spironolactone 25 mg tablet 25 mg PO QDAY #90 tabs 04/24/25 Rx vit C 250 mg-vit E 90 mg-zinc 40 1 tab PO BID 04/10/25 04/24/25 History mg-copper 1 ax-thjhlb-kwmjny capsule (PreserVision AREDS-2) amiodarone 200 mg tablet 200 mg PO QDAY #30 tabs 03/2604/24/25 Rx buspirone 15 mg tablet 15 mg PO BID 04/20/25 History cholecalciferol (vitamin D3) 50 2,000 unit PO QDAY 04/24/25 History mcg (2,000 unit) tablet metoprolol succinate 25 mg 25 mg PO BID #60 tabs 04/2404/24/25 Rx tablet,extended release 24 hr torsemide 20 mg tablet 20 mg PO QAM #30 tabs 04/24/25 Rx Ejection fraction %: 50 Have you fallen in the past year?: No PFSH Medical History HTN (hypertension), benign Paroxysmal atrial fibrillation Bradycardia Anxiety and depression Smoker Sleep apnea HTN (hypertension) Afib Surgical History History of tonsillectomy History of carpal tunnel release Family History Mother Hypertension Grandfather Hypertension Grandmother Hypertension Father Cancer Social History Smoking Status: Former smoker how long ago did patient quit smokin12/30/2023 alcohol intake: current alcohol intake frequency: holidays/special occasions only substance use type: does not use caffeine: No ROS Const Const: Negative for fatigue, weakness, headache(s) or frequent falls Eyes Eyes: Negative for blurry vision ENT ENT: Positive for dizziness; Negative for headache(s) or Nosebleed/epistaxis Cardio Chest Pain: No Palpitations: No Edema: Bilateral and None Muscle aches with walking: None Resp Respiratory: Positive for SOB with activity and SOB at rest; Negative for SOB orthopnea\\SOB lying down GI GI: Negative nausea, vomiting, heartburn, bright, red blood in stools or black,tarry stools : Negative for hematuria Neuro Neuro: Positive for dizziness and lightheadedness; Negative for near syncope, syncope, frequent falls, headache(s), weakness or blurry vision Endo Endo: Negative for fatigue Cardiology Exam Const Appearance: cooperative, comfortable, no acute distress and well developed; Negative diaphoretic or ill appearing Nutritional Appearance: average body habitus Orientation: alert and oriented x3 Ambulating without assistive device Head Head: normal to inspection, normocephalic and atraumatic Ears: hearing grossly normal bilaterally Nose: external nose normal and Negative epistaxis Face and Sinus: face symmetric Eyes General: appearance normal, both eyes and all related structures Eyelids: eyelids normal Conjunctivae: conjunctivae normal; Negative scleral icterus EOM: EOM intact bilaterally Neck Neck: no JVD Carotids: normal carotid upstroke; Negative bruit Neck Mass: Negative Neck mass Chest Chest inspection: normal respiratory effort; Negative respiratory distress, audible wheezes or tachypneic Auscultation: Bilateral: Clear to Auscultation Cardio Rhythm: irregularly irregular Heart sounds: S1 normal and S2 normal; Negative rub, gallop or murmur Neuro General: patient alert, patient awake, patient oriented x3 and moves all extremities Skin Skin: no rashes or lesions noted Extremities Pulses: Normal: Right Posterior Tibial Pulse, Left Posterior Tibial Pulse, RightRadial Pulse and Left Radial Pulse Lower Extremity Edema: +1: Bilateral Psych Psychological: normal affect Supplemental Info Supplemental Information CTA CHEST (NONGATED) W IVCON PE 04/17/2025 IMPRESSION: 1. ?No pulmonary emboli, no signs of right heart strain. 2. ?Small bilateral pleural effusions and interstitial edema reflecting moderate congestion. 3. ?Mild cardiomegaly, diffuse coronary artery calcifications.. 4. ?Indeterminate 1.3 cm superior pretracheal lymph node may reflect lymphatic congestion. ?Recommend correlation with prior studies if available, otherwise consider follow-up in 6 months to assess for stability/resolution. US DVT LOWER LEFT 04/17/2025 IMPRESSION: Negative study for proximal DVT in the left lower extremity. Negative study for calf DVT in the left lower extremity. Negative study for superficial thrombophlebitis in the imaged segments of the left lower extremity. Echocardiogram 12/28/2023 Interpretation Summary Normal LV size. The estimated ejection fraction is 50 %. Mild concentric left ventricular hypertrophy. Bubble contrast study negative for right to left interatrial shunt. Stage 3 diastolic dysfunction. Holter monitor from 02/02/2024: Normal sinus rhythm with left bundle branch block and periods of paroxysmal atrial fibrillation with frequent PACs and rare PVCs Minimum heart rate 34 bpm. Average heart rate 60 bpm. Maximum heart rate 140 bpm. Ventricular ectopy 0.0%. Supraventricular ectopy 1.7%. Longest R to R interval 2.3 seconds. Atrial fibrillation 21.5% with 40 events and a total of 365.3 minutes. No ventricular tachycardia noted. The patient kept a 48-hour diary. No activities or symptoms recorded. Diagnostics: Electrocardiogram Echocardiogram Chest X-Ray Past Visits: Cardiology Visit Today Assessment and Plan Assessment and Plan (1) Shortness of breath: Status: Acute Plan: Patient denies any improvement in her shortness of breath with furosemide. She had a known elevatedNT proBNP a few weeks ago. She does have a history of atrial fibrillation with fluctuating rates which are being addressed as documented below. Plan: Will obtain an echocardiogram and a sleep study. Will discontinue furosemide and initiate torsemide. Recommend patient take torsemide 20 mg twicedaily x 5 days and then maintain on 20 mg daily.Recommend she continue spironolactone. Will obtain BMP today and again in 2 weeks. (2) Paroxysmal atrial fibrillation: Status: Acute Plan: Patient has a history of paroxysmal atrial fibrillation. 14-day Holter monitor 03/21 - 04/04/2025 demonstrated 68% atrial fibrillation, average heart rate of 84 bpm with maximum 157 bpm and minimum 30 bpm. Concern for tacky ladonna arrhythmia. She has a [id number] score of 4 and is anticoagulated with Eliquis 5 mg twice daily. Her EKG in office today demonstrates atrial fibrillation at a rate of 114 bpm with QT/QTc 186/532; however, when manually calculated, QT is captured around 440. Plan: Recommend patient continue anticoagulation. Will increase patient's metoprolol succinate 25 mg from daily to twice daily. Will obtain echocardiogram. We have discussed her fluctuating heart rates and potential fora pacemaker in the future if needed to control her rapid rates. (3) [facility] current use of amiodarone: Status: Acute Plan: EKG in office today demonstrates atrial fibrillation at a rate of 114 bpm with QT/QTc 186/532; however, when manually calculated, QT is captured around 440. Plan: Recommend continuing amiodarone 200 mg daily. Increased metoprolol succinate 25 mg daily to twice daily. (4) HTN (hypertension), benign: Status: Acute Plan: Patient has a history of hypertension. Blood pressure in office today 126/77. Plan: Recommend patient continue losartan and spironolactone. Furosemide was transition to torsemide. Metoprolol succinate was increased secondary to rate concerns. Encourage lifestyle risk factor modification. Orders: Orders 12 Lead EKG performed by BMS Today I48.0 - Paroxysmal atrial fibrillation Echo Complete Today R06.02 - Shortness of breath Split Night Sleep Study Today G47.10 - Hypersomnia, unspecified Medications: New torsemide 20 mg PO QAM 30 tabs 0RF Changed From metoprolol succinate ER 25 mg PO QDAY 30 tabs 3RF To metoprolol succinate ER 25 mg PO BID 60 tabs 3RF Discontinued furosemide Discontinued Reason: Order Changed 40 mg PO DAILY 90 TABLETS 3RF Plan 1. Stop furosemide, start torsemide 20mg BID for 5 days and then daily following. Increase metoprolol to twice a day. 2. We will get a sleep study and echocardiogram 3. Will obtain BMP today and again in 2 weeks Patient will follow-up in 4 weeks or sooner, if needed. Thank you for allowing me to participate in the care of your patient. Please don't hesitate to callif any issues arise. This note was generated using a voice recognition system and there may be incorrect words, spelling, or punctuation that were not noted when reviewing theoffice note prior to saving. Portions of this documentation were copied and pasted from previous office visitnotes to provide a cohesive continuity of the history. The note has been reviewed, edited, and updated, as necessary. Patient Instructions: 1. Stop furosemide, start torsemide 20mg BID for 5 days and then daily following. Increase metoprolol succinate to twice a day. 2. We will get a sleep study and echocardiogram 3. Will obtain BMP today and again in 2 weeks Plan Details Follow Up: 4 Weeks (SRD) Coding Level of Care Code Off vis,est,level 4 Diagnoses Shortness of breath R06.02 Paroxysmal atrial fibrillation I48.0 [facility] current use of amiodarone Z79.899 HTN (hypertension), benign I10 Coding Level of Care Code Off vis,est,level 4 Diagnoses Shortness of breath R06.02 Paroxysmal atrial fibrillation I48.0 [facility] current use of amiodarone Z79.899 HTN (hypertension), benign I10 Clinical Quality Measures Falls Risk Screening/Assistive Devices Have you fallen in the past year?: No Cardiac Ejection fraction %: 50 04/24/25 1145 r PA> Date _ Dontrell Demiter PA 04/25/25 1037 Cosigner Signature: Date (if applicable) Yuri Ta MD CC: Dr. Carl Rendon MD ~ [facility]09-23-2025 NoteHNO ID: [id number] Author: BETTY CHEN RT(R) Service: ? Author Type: Rail Detector Car Operator Type: Progress Notes Filed: 04/17/2025 14:46 Note [...] PATIENT PRESENTS WITH AN IMPLANTABLE OR ATTACHED PRODUCTION CONTROL ANALYST: No ALLERGIES: Reviewed and unchanged CONTRAST ALLERGY: [...] Abarca DATE: April 17, 2025 TIME: 2:45 [facility]09-23-2025 NoteHNO ID: [id number] Author: OPAL HOBBS RDMS Service: ? Author Type: Spinning Lathe Operator Automatic Type: Progress Notes Filed: 04/17/2025 10:18 Note [...] PATIENT PRESENTS WITH AN IMPLANTABLE OR ATTACHED PRODUCTION CONTROL ANALYST: No RADIOLOGY DEPARTMENT: Ultrasound PERIPHERAL IV DATA: Not applicable SIGNED BY: Opal Hobbs RDMS RVT April 17, 2025 10:18 [facility]09-22-2025 NoteHNO ID: [id number] Author: CARL RENDON MD Service: ? Author [...] Date Acute systolic CHF (congestive heart failure) ([facility]) 01/04/2024 Echo 12/29/23. EF 50% Adjustment disorder with depressed mood 04/08/2005 Advance directive discussed with patient 12/15/2021 Discussed 11/2021 Carpal tunnel syndrome, bilateral 03/14/2020 Cervical radiculopathy 03/14/2020 Chronic bronchitis (HCC) 05/31/2014 Chronic systolic CHF (congestive heart failure) ([facility]) 01/04/2024 Echo 12/29/23. EF 50% Common wart [...] Done: 12/15/2021 Paroxysmal atrial fibrillation (HCC) 01/04/2024 [facility] Primary osteoarthritis involving multiple joints 12/27/2023 Knee and R hip Right hip pain 12/19/2021 Sleep apnea 06/13/2013 mild sleep apnea. 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 PAST SURGICAL HISTORY OF Right 11/2024 right 2nd toe. PLC BREAST CLIP PERC Left breast TONSILLECTOMY PRIMARY/SECONDARY Tonsillectomy Family History FAMILY HISTORY Problem Relation [...] 1 tablet by mouth once daily. Per [facility]. metoprolol succinate ER (TOPROL XL) [...] once daily. apixaban (ELIQUIS) 5 mg tab(s) (more content not included)...[facility]09-16-2025 Radiology Diagnostic study note [facility] Imaging Services [address] [place] [address] Chest PA and Lateral MR#: [id number] Acct: [id number] Name: CHERYL ABARCA Rep #: [id number] : 1935 F 89 From: Corina Gray MD PCP: Dr. Carl Rendon MD Status: REG CLI Study:Chest PA and Lateral Date of Exam: 04/10/25 Exam# [id number] Ordering Dr: Dontrell Hernandez PROCEDURE: CHEST PA AND LATERAL 04/10/2025 REASON FOR EXAM: SHORTNESS OF BREATH TECHNIQUE: Procedure Code: RADCXR Modality: DX Procedure: CHEST PA AND LATERAL COMPARISON: None FINDINGS: Bibasilar subsegmental atelectasis. Mild pulmonary vascular congestion. Underlying chronic lung disease not excluded. No focal consolidation. No pleural effusion or pneumothorax. Cardiac silhouette is within normal limits. No acute fractures. RAD/Chest PA and Lateral IMPRESSION: Bibasilar subsegmental atelectasis. Mild pulmonary vascular congestion. Underlying chronic lung disease not excluded. No focal consolidation. Reading Location: [facility] CC: Dr. Carl Rendon MD; NKECHI Duffy ~ 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Signed [facility]09-16-2025 NoteHNO ID: [id number] Author: BRENDA OLEARY MA Service: ? Author Type: Senior Software Qa Analyst Type: Progress Notes Filed: 04/10/2025 20:57 Note Text: Scan on 04/10/2025 11:20 AM by Sanju Corey PA-C: Chemistry Scan on 04/10/2025 10:36 AM by Sanju Corey PA-C: Hematology Scan on 04/10/2025 3:03 PM by Sanju Corey PA-C: chest PA and Lateral [facility]09-16-2025 History of Present illness Narrative* Brenda Oleary MA - 04/10/2025 12:47 PM EDT Scan on 04/10/2025 11:20 AM by Sanju Corey PA-C: Chemistry Scan on 04/10/2025 10:36 AM by Sanju Corey PA-C: Hematology Scan on 04/10/2025 3:03 PM by Sanju Corey PA-C: chest PA and Lateral [facility] Telephone encounter Note * Telephone Encounter - Carl Rendon MD - 04/05/2025 4:44 PM EDT The following approved medication requests have been transmitted electronically. Requested Prescriptions Signed Prescriptions Disp Refills busPIRone (BUSPAR) 7.5 mg tablet 60 tablet 5 Sig: Take 1 tablet by mouth two times a day. Authorizing Provider: CARL RENDON MD [facility]09-11-2025 Miscellaneous Notes* Telephone Encounter - Carl Rendon MD - 04/05/2025 4:44 PM EDT The following approved medication requests have been transmitted electronically. Requested Prescriptions Signed Prescriptions Disp Refills busPIRone (BUSPAR) 7.5 mg tablet 60 tablet 5 Sig: Take 1 tablet by mouth two times a day. Authorizing Provider: CARL RENDON MD * Telephone Encounter - [place] Norma Gloria - 04/05/2025 4:12 PM EDT Prescription Refill Information The patient has been identified by name and date of : Yes Caregiver verified no other encounters exist for this prescription request: Yes Caregiver confirmed with patient/requestor that no other refills are due, in the near future, with this provider at this time: Yes The last office visit in the department: Does the patient have a future office visit with this provider/department: Yes Requested Prescriptions Pending Prescriptions Disp Refills busPIRone (BUSPAR) 7.5 mg tablet 60 tablet 5 Sig: Take 1 tablet by mouth two times a day. Norma Gloria April 05, 2025 4:12 PM [facility]Tr[facility] Telephone encounter Note * Telephone Encounter - [place] Norma Gloria - 04/05/2025 4:12 PM EDT Prescription Refill Information The patient has been identified by name and date of : Yes Caregiver verified no other encounters exist for this prescription request: Yes Caregiver confirmed with patient/requestor that no other refills are due, in the near future, with this provider at this time: Yes The last office visit in the department: Does the patient have a future office visit with this provider/department: Yes Requested Prescriptions Pending Prescriptions Disp Refills busPIRone (BUSPAR) 7.5 mg tablet 60 tablet 5 Sig: Take 1 tablet by mouth two times a day. Norma Gloria April 05, 2025 4:12 PM [facility]09-10-2025 Telephone encounter Note* Telephone Encounter - Ruth Blake LPN - 04/04/2025 11:57 AM EDT Pt is following with Cardiology. Ruth Blake LPN [facility]09-10-2025 Miscellaneous Notes* Telephone Encounter - Ruth Blake LPN - 04/04/2025 11:57 AM EDT Pt is following with Cardiology. Ruth Blake LPN documented in this encounterTr[facility]09-05-2025 Note* Addendum Note - Carl Rendon MD - 03/30/2025 4:21 PM EDTAddended by: CARL RENDON on: 03/30/2025 04:21 PM Modules accepted: Orders [facility]09-05-2025 Miscellaneous Notes* Addendum Note - Carl Rendon MD - 03/30/2025 4:21 PM EDTAddended by: CARL RENDON on: 03/30/2025 04:21 PM Modules accepted: Orders documented in this encounterTr[facility]09-[facility]-2025 NoteHNO ID: [id number] Author: BRIT MÉNDEZ MA Service: ? Author Type: Senior Software Qa Analyst Type: Progress Notes Filed: 03/30/2025 14:54 Note Text: Scan on 03/30/2025 8:53 AM by ProviderSanju PA-C: [facility]09-05-2025 History of Present illness Narrative* Brit Méndez MA - 03/30/2025 2:54 PM EDT Scan on 03/30/2025 8:53 AM by ProviderSanju PA-C: WHG documented in this encounterTr[facility]08-19-2025 Instructions* Patient Instructions* Dionna Uriarte PA-C - 03/13/2025 9:29 AM EDT Stop amlodipine Start metoprolol 50mg XL once a day Schedule follow up with cardiology within the next week. Dionna Uriarte PA-C documented in this encounterTr[facility]08-19-2025 NoteHNO ID: [id number] Author: DIONNA URIARTE PA-C Service: ? 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 - [place] dizzy when standing, sought relief by sitting [...] Date Acute systolic CHF (congestive heart failure) ([facility]) 01/04/2024 Echo 12/29/23. EF 50% Adjustment disorder with depressed mood 04/08/2005 Advance directive discussed with patient 12/15/2021 Discussed 11/2021 Carpal tunnel syndrome, bilateral 03/14/2020 Cervical radiculopathy 03/14/2020 Chronic bronchitis ([facility]) 05/31/2014 Chronic systolic CHF (congestive heart failure) ([facility]) 01/04/2024 Echo 12/29/23. EF 50% Common wart [...] SURGICAL HISTORY Procedure Laterality Date ADENOIDECTOMY PRIMARY Adenoidectomy COLONOSCOPY FLX DX W/COLLJ SPEC WHEN PFRMD 02/08/2013 Colonoscopy COLONOSCOPY W/BIOPSY SINGLE/MULTIPLE 01/02/2002 Repeat in ECHO 10/29/2023 EGD 08/15/2004 PAST SURGICAL HISTORY OF RIGHT NEEDLE BIOPSY, Breast PAST SURGICAL HISTORY OF 11/23/2006 MOHS-PRECANCEROUS AREA ON LEFT EYEBROW. PAST SURGICAL HISTORY OF Right 11/2024 right 2nd toe. PLC BREAST CLIP PERC Left breast TONSILLECTOMY PRIMARY/SECONDARY Tonsillectomy Family History FAMILY HISTORY Problem Relation [...] alert, in no acute distress, well-hydrated, well nou (more content not included)...[facility]08-19-2025 History of Present illness Narrative* Dionna Uriarte PA-C - 03/13/2025 9:12 AM EDT Chief Complaint Patient presents with: Blood Pressure [...] using the bathroom and persisted afterward. - [place] dizzy when standing, sought relief by sitting [...] Date Acute systolic CHF (congestive heart failure) ([facility]) 01/04/2024 Echo 12/29/23. EF 50% Adjustment disorder with depressed mood 04/08/2005 Advance directive discussed with patient 12/15/2021 Discussed 11/2021 Carpal tunnel syndrome, bilateral 03/14/2020 Cervical radiculopathy 03/14/2020 Chronic bronchitis (HCC) 05/31/2014 Chronic systolic CHF (congestive heart failure) ([facility]) 01/04/2024 Echo 12/29/23. EF 50% Common wart [...] Done: 12/15/2021 Paroxysmal atrial fibrillation (HCC) 01/04/2024 [facility] Primary osteoarthritis involving multiple joints [...] EXAM: BP 124/83 Pulse 103 Temp 36.1 C (96.9 F) (Tympanic) Resp 16 Wt 71.5 kg (157 lb 9.6 oz) SpO2 97% BMI 27.92 kg/m General Appearance: Well appearing, alert, in no [...] no recent EKG performed. - Consulted with storage receipt poster, Dr. Ta, by who recommended medication adjustments [...] which included preparing to see the patient, [id number] patient care, completing clinical documentation, obtaining and/or reviewing separately obtained history, performing a medically appropriate examination, counseling and educating the pat ient/family/caregiver, ordering medications, tests, or procedures, and communicating results to thepatient/family/caregiver. Recording using [employer] software for draft documentation of the visit was discussed with the patient/authorized parts representative; all questions welcomed and answered. Patient/authorized parts representative agreed to proceed [1] Social History Tobacco Use Smoking status: Former Current packs/day: 0.00 Types: Pipe, Cigarettes Start date: 01/07/2006 Quit date: 12/27/2023 Years since quittin.2 Smokeless tobacco: Never Tobacco comments: Used to smoke cigarettes. Vaping Use Vaping status: Never Used Substance Use Topics Alcohol use: Yes Comment: wine- 4-6 oz 5 times a week Drug use: No documented in this encounterTr[facility]07-29-2025 Telephone encounter Note * Telephone Encounter - Ruth Blake LPN - 02/20/2025 2:33 PM EDT Prescription Refill Information The patient has been identified by name and date of : Yes Caregiver verified no other encounters exist for this prescription request: Yes Caregiver confirmed with patient/requestor that no other refills are due, in the near future, with this provider at this time: Yes The last office visit in the department: 01/25/25 Does the patient have a future office visit with this provider/department: Yes Requested Prescriptions Pending Prescriptions Disp Refills venlafaxine ER (EFFEXOR XR) 150 mg 24 hr capsule 90 capsule 1 Sig: Take 1 capsule by mouth once daily. Ruth Blake LPN February 20, 2025 2:33 PM [facility]07-29-2025 Miscellaneous Notes* Telephone Encounter - Ruth Blake LPN - 02/20/2025 2:33 PM EDT Prescription Refill Information The patient has been identified by name and date of : Yes Caregiver verified no other encounters exist for this prescription request: Yes Caregiver confirmed with patient/requestor that no other refills are due, in the near future, with this provider at this time: Yes The last office visit in the department: 01/25/25 Does the patient have a future office visit with this provider/department: Yes Requested Prescriptions Pending Prescriptions Disp Refills venlafaxine ER (EFFEXOR XR) 150 mg 24 hr capsule 90 capsule 1 Sig: Take 1 capsule by mouth once daily. Ruth Blake LPN February 20, 2025 2:33 PM * Telephone Encounter - Shelly Muñoz - 02/19/2025 10:18 AM EDT Prescription Refill Information The patient has been identified by name and date of : Yes Caregiver verified no other encounters exist for this prescription request: Yes Caregiver confirmed with patient/requestor that no other refills are due, in the near future, with this provider at this time: Yes The last office visit in the department: 01/25/2025 Does the patient have a future office visit with this provider/department: Yes Requested Prescriptions Pending Prescriptions Disp Refills venlafaxine ER (EFFEXOR XR) 150 mg 24 hr capsule 90 capsule 1 Sig: Take 1 capsule by mouth once daily. 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 acute February 20, 2025 10:34am Paroxysmal atrial fibrillation acute February 20, 2025 10:34am HTN (hypertension), benign acute March 16, 2025 8:55am 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 acute March 16 8:55am Paroxysmal atrial fibrillation acute March 16, 2025 8:55am HTN (hypertension), benign acute April 10, 2025 8:24am 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 acute April 10, 2025 8:24am Paroxysmal atrial fibrillation acute April 10, 2025 8:24am Shortness of breath acute Septe 2024 8:24am [facility] Work Phone: 1(453) 273-469207-29-2025 Evaluation note* Diagnosis Onset Date Resolution Status Admit Date HTN (hypertension), benign acute February 20, 2025 10:34am [facility] current use of amiodarone acute February 20, 2025 10:34am Paroxysmal atrial fibrillation acute February 20, 2025 10:34am HTN (hypertension), benign acute March 16, 2025 8:55am [facility] current use of amiodarone acute March 16 8:55am Paroxysmal atrial fibrillation acute March 16, 2025 8:55am HTN (hypertension), benign acute April 10, 2025 8:24am 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 acute April 10, 2025 8:24am Paroxysmal atrial fibrillation acute April 10, 2025 8:24am Shortness of breath acute Septe mb2024 8:24am HTN (hypertension), benign acute April 24, 2025 9:22am 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 acute April 24, 2025 9:22am Paroxysmal atrial fibrillation acute April 24, 2025 9:22am Shortness of breath acute Septe mb2024 9:22am [facility] Work Phone: 1(567) 988-962107-29-2025 Evaluation note* Diagnosis Onset Date Resolution Status Admit Date [facility] current use of amiodarone acute February 20, 2025 10:34am HTN (hypertension), benign chronic February 20, 2025 10:34am Paroxysmal atrial fibrillation chronic February 20, 2025 10:34am [facility] current use of amiodarone acute March 16 8:55am HTN (hypertension), benign chronic March 16, 2025 8:55am Paroxysmal atrial fibrillation chronic March 16 8:55am 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 acute April 10, 2025 8:24am Shortness of breath acute Septe [facility] [place] 2024 8:24am HTN (hypertension), benign chronic April 10, 2025 8:24am Paroxysmal atrial fibrillation chronic April 10, 2025 8:24am [facility] current use of amiodarone acute April 24, 2025 9:22am Shortness of breath acute Septe [facility] [place] 2024 9:22am HTN (hypertension), benign chronic April 24, 2025 9:22am Paroxysmal atrial fibrillation chronic April 24, 2025 9:22am [facility] current use of amiodarone acute May 10 11:01am Shortness of breath acute Octob [place] 2024 11:01am HTN (hypertension), benign chronic May 10, 2025 11:01am Paroxysmal atrial fibrillation chronic May 10 11:01am HFrEF (heart failure with reduced ejection fraction) acute Octob er 2024 10:22am 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 Author Type: LICENSED NURSE Type: Progress Notes Filed: 02/20/2025 16:36 Note Text: Scan on 02/20/2025 11:05 AM by Provider, External, PA-C: Consultation - Cardiology Labs: View External Labs - BMP [ID [id number]][facility]07-29-2025 History of Present illness Narrative* Ruth Blake LPN - 02/20/2025 11:40 AM EDT Scan on 02/20/2025 11:05 AM by Provider, LANA Bills: Consultation - Cardiology Labs: View External Labs - BMP [ID [id number]] documented in this encounterTr[facility]07-28-2025 Telephone encounter Note * Telephone Encounter - Shelly Muñoz - 02/19/2025 10:18 AM EDT Prescription Refill Information The patient has been identified by name and date of : Yes Caregiver verified no other encounters exist for this prescription request: Yes Caregiver confirmed with patient/requestor that no other refills are due, in the near future, with this provider at this time: Yes The last office visit in the department: 01/25/2025 Does the patient have a future office visit with this provider/department: Yes Requested Prescriptions Pending Prescriptions Disp Refills venlafaxine ER (EFFEXOR XR) 150 mg 24 hr capsule 90 capsule 1 Sig: Take 1 capsule by mouth once daily. Shelly Gloria February 19, 2025 10:18 AM [facility] Work Phone: 1(230) 606-754607-16-2025 NoteHNO ID: [id number] Author: ?, ?, ? Service: ? Author Type: LICENSED NURSE Type: Progress Notes Filed: 02/07/2025 09:12 Note Text: Patient presents for suture removal per Dr Rendon. Pt denies any pain, redness, swelling, or drainage from incision site. Removed 3 sutures at this time without difficulty. Incision healing and well approximated. No redness, drainage, pain, or swelling noted. Pt tolerated procedure well. [facility] History of Present illness Narrative* ANA LEIGH - 02/07/2025 9:11 AM EDT Patient presents for suture removal per Dr Rendon. Pt denies any pain, redness, swelling, or drainage from incision site. Removed 3 sutures at this time without difficulty. Incision healing and well approximated. No redness, drainage, pain, or swelling noted. Pt tolerated procedure well. Ana Leigh LPN documented in this encounterTr[facility]07-14-2025 Telephone encounter Note * Telephone Encounter - Carol Rivera RN - 02/05/2025 12:27 PM EDT Pt calling in to state [facility] states they do not have this prescription. This nurse informed pt that pharmacy would be contacted and her request would be completed. Attempted to contact [facility], left on Pharmacy line of prescription and pt refill request. [facility] to call back today if new script is needed, otherwise request to be completed.by Pharmacy. Carol Rivera RN [facility]07-14-2025 Miscellaneous Notes* Telephone Encounter - Carol Rivera RN - 02/05/2025 12:27 PM EDT Pt calling in to state [facility] states they do not have this prescription. This nurse informed pt that pharmacy would be contacted and her request would be completed. Attempted to contact [facility], left on Pharmacy line of prescription and pt refill request. [facility] to call back today if new script is needed, otherwise request to be completed.by Pharmacy. Carol Rivera RN * Telephone Encounter - Krishna Mustafa LPN - 01/31/2025 4:18 PM EDT Rx was sent to [facility] on 10/30/24 #60 with 4 refills. Pt is not due for refill. Phone call to pt, rang once then line was full of static and call was disconnected. Krishna Mustafa LPN * Telephone Encounter - Sherry Moon - 01/31/2025 3:24 PM EDT Patient has been identified by name and date of : Yes Patient phones for refill(s): Requested Prescriptions Pending Prescriptions Disp Refills busPIRone (BUSPAR) 7.5 mg tablet 60 tablet 4 Sig: Take 1 tablet by mouth two times a day. Date of last office visit in primary care: 01/25/2025 Date of next office visit in primary care: 02/07/2025 Please advise. Thank you. Sherry Moon. documented in this encounterTr[facility]07-14-2025 NoteHNO ID: [id number] Author: OMARI NAVAS APRN.DIRECTOR ASSET Service: ? Author Type: Nurse Practitioner Type: [...] Done: 12/15/2021 Paroxysmal atrial fibrillation (HCC) 01/04/2024 [facility] Primary osteoarthritis involving multiple joints 12/27/2023 Knee and R hip Right hip pain 12/19/2021 Sleep apnea 06/13/2013 mild sleep apnea. 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 PAST SURGICAL HISTORY OF Right 11/2024 right 2nd toe. PLC BREAST CLIP PERC Left breast TONSILLECTOMY PRIMARY/SECONDARY Tonsillectomy ALLERGIES Bactrim Ds [Sulfamethoxazole-Trimethoprim] MEDICATIONS ketoconazole [...] and oriented to person, place, and time. {ASSE (more content not included)...[facility]07-14-2025 History of Present illness Narrative* Omari Navas APRN.DIRECTOR ASSET - 02/05/2025 12:12 PM EDT Images from the original note were not included. [facility] Subjective HPI HPI Cheryl Abarca is a 89 year old female who presents today for CC of itchy rash on arms. Thisstarted 1 day ago. Has tried nothing for [...] 05/31/2014 Chronic systolic CHF (congestive heart failure) ([facility]) 01/04/2024 Echo 12/29/23. EF 50% Common wart [...] Done: 12/15/2021 Paroxysmal atrial fibrillation (HCC) 01/04/2024 [facility] Primary osteoarthritis involving multiple joints [...] Objective BP 128/78 Pulse 65 Temp 36.9 C (98.5 F) (Tympanic) Resp 18 Wt 71.7 kg (158 lb 1.1 oz) SpO2 97% BMI 28.00 kg/m Physical Exam Constitutional: General: She is not [...] ACETONIDE 0.1 % TOPICAL CREAM Omari Navas APRN.JIMBO History and Record Review External record(s) reviewed: prior outpatient record. Disposition The patient was discharged. Procedures documented in this encounterTr[facility]07-[facility]-2025 Telephone encounter Note * Telephone Encounter - Krishna Mustafa LPN - 01/31/2025 4:18 PM EDT Rx was sent to [facility] on 10/30/24 #60 with 4 refills. Pt is not due for refill. Phone call to pt, rang once then line was full of static and call was disconnected. Krishna Mustafa LPN [facility]07-09-2025 Telephone encounter Note* Telephone Encounter - Sherry Moon - 01/31/2025 3:24 PM EDT Patient has been identified by name and date of : Yes Patient phones for refill(s): Requested Prescriptions Pending Prescriptions Disp Refills busPIRone (BUSPAR) 7.5 mg tablet 60 tablet 4 Sig: Take 1 tablet by mouth two times a day. Date of last office visit in primary care: 01/25/2025 Date of next office visit in primary care: 02/07/2025 Please advise. Thank you. Sherry Moon. [facility]07-09-2025 Telephone encounter Note* Telephone Encounter - Ruth Blake LPN - 01/31/2025 9:28 AM EDT Pt notified of same, with verbalized understanding. Ruth Blake LPN [facility]07-09-2025 Miscellaneous Notes* Telephone Encounter - Ruth Blake LPN - 01/31/2025 9:28 AM EDT Pt notified of same, with verbalized understanding. Ruth Blake LPN * Telephone Encounter - Carl Rendon MD - 01/30/2025 11:21 PM EDT Let patient know the skin biopsy was a common wart. documented in this encounterTr[facility]07-[facility]-2025 Telephone encounter Note * Telephone Encounter - Carl Rendon MD - 01/30/2025 11:21 PM EDT Let patient know the skin biopsy was a common wart. [facility]07-03-2025 NoteHNO ID: [id number] Author: CARL RENDON MD Service: ? Author [...] blood loss. Lesion: 1.4 cm x 0.8 [facility]07-03-2025 Procedure note* Carl Rendon MD - 01/25/2025 9:44 AM EDTProcedure(s): SKIN BIOPSY Pre-Procedure Diagnose(s): 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 Post-Procedure Diagnose(s): 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 UNIVERSAL PROTOCOL / SAFETY CHECKLIST Procedure to [...] procedure match the source document(s) (e.g. consent, H&P, associated studies [imaging, pathology]) match the intended [...] loss. Lesion: 1.4 cm x 0.8 cm [facility]07-03-2025 Procedure note* Carl Rendon MD - 01/25/2025 9:44 AM EDTProcedure(s): SKIN BIOPSY Pre-Procedure Diagnose(s): 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 Post-Procedure Diagnose(s): 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 UNIVERSAL PROTOCOL / SAFETY CHECKLIST Procedure to [...] procedure match the source document(s) (e.g. consent, H&P, associated studies [imaging, pathology]) match the intended [...] loss. Lesion: 1.4 cm x 0.8 cm documented in this encounterTrinity [facility]07-03-2025 NoteHNO ID: [id number] Author: CARL RENDON MD Service: ? Author [...] Done: 12/15/2021 Paroxysmal atrial fibrillation (HCC) 01/04/2024 [facility] Primary osteoarthritis involving multiple joints 12/27/2023 Knee and R hip Right hip pain 12/19/2021 Sleep apnea 06/13/2013 mild sleep apnea. 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 PAST SURGICAL HISTORY OF Right 11/2024 right 2nd toe. PLC BREAST CLIP PERC Left breast TONSILLECTOMY PRIMARY/SECONDARY Tonsillectomy Family History FAMILY HISTORY Problem Relation [...] BCC. . Health Maintenance List DTaP,Tdap,Td Vaccine(4 (more content not included)...[facility] 01-25-2025 History of Present illness Narrative* Carl Rendon MD - 01/25/2025 9:07 AM EDT Chief Complaint Patient presents with: Procedure: Lesion removal HPI Cehryl Abarca is a 89 year old female [...] at it. Noticed in in the last 6-12months. Never resolves. Not tender or itchy. Past medical history, appointments, medications, allergies reviewed. Previous Medical History PAST MEDICAL HISTORY Diagnosis Date Acute systolic CHF (congestive heart failure) ([facility]) 01/04/2024 Echo 12/29/23. EF 50% Adjustment disorder with depressed mood 04/08/2005 Advance directive discussed with patient 12/15/2021 Discussed 11/2021 Carpal tunnel syndrome, bilateral 03/14/2020 Cervical radiculopathy 03/14/2020 Chronic bronchitis (HCC) 05/31/2014 Chronic systolic CHF (congestive heart failure) ([facility]) 01/04/2024 Echo 12/29/23. EF 50% DDD (degenerative [...] kg (156 lb 12.8 oz) BMI 27.78 kg/m General Appearance: Well appearing, alert, in no [...] if needed as discussed. Carl Rendon MD documented in this encounterTr[facility] Telephone encounter Note * Telephone Encounter - Callie Sena MA - 01/08/2025 12:21 PM EDT Pt notified and verbalized understanding Callie Sena MA [facility]06-16[facility]2025 Miscellaneous Notes* Telephone Encounter - Callie Sena MA - 01/08/2025 12:21 PM EDT Pt notified and verbalized understanding Callie Sena MA * Telephone Encounter - Noreen Camacho APRN.CNP - 01/08/2025 8:48 AM EDT Please let patient know their labs are normal. documented in this encounterTr[facility]06-[facility]25 Telephone encounter Note * Telephone Encounter - Noreen Camacho APRN.CNP - 01/08/2025 8:48 AM EDT Please let patient know their labs are normal. [facility] Work Phone: [phone] 130-840206-16-2025 Instructions* Patient Instructions* Carl Rendon MD - 01/08/2025 8:05 AM EDT Consider getting a Tdap for tetanus update [...] the past 6-12 months is concerning for possibleskin cancer (squamous cell or basal cell). These types of skin cancer are typically treated by removing the lesion. - We will schedule a follow-up appointment in a couple of weeks to remove the lesion in the office.The procedure will involve cleaning the area, making [...] blocked, and we cleaned it out during today s visit. Please let us know if you [...] ounces of water daily. This is equivalent toabout three 16.9-ounce water bottles per day. - [...] visit is scheduled in six months with Noreen. Labs will be ordered before that visit. [...] review all the medicines you take, even okwe-afy-icrnnvi medicines. As you get older, the way medicines work in your body can change. Some medicines, or combinations of medicines, can make you sleepy or dizzy andcan cause you to fall. 3. Have your [...] apply if you have certain medical conditions. documented in this encounterTr[facility]06-16-2025 NoteHNO ID: [id number] Author: CARL RENDON MD Service: ? Author [...] MD as PCP - General (Family Medicine) Noreen Camacho APRN.JIMBO as Referral Management Liaison (Family Medicine) Dionna Uriarte PA-C as Referral Management Liaison (Family Medicine) [facility]: cardio Medical/Family history review Reviewed [...] 60 Resp 16 Ht 160 cm (5' 3") Wt 68.5 kg (151 lb) SpO2 96% [...] at [facility]. She is uncertain about the outcome of the procedure and has a follow-up appointment with a different video game developer due to Dr. Seth's relocation to [place]. She also has a bunion on the [...] is currently living in independent living at [place] with her , who has memory problems. She is responsible for managing his medications and has concerns about his ability to live independently if she were to pass away. She has discussed these concerns with her children, who have medical and financial power of united states attorney. Past medical history, appointments, medications, allergies reviewed. Previous Medical History PAST MEDICAL HISTORY Diagnosis Date Acute systolic CHF (congestive heart failure) ([facility]) (more content not included)...[facility]06-16-2025 History of Present illness Narrative* Carl Rendon MD - 01/08/2025 7:47 AM EDT Images from the original note were not included. Cheryl Abarca is a 89 year old [...] MD as PCP - General (Family Medicine) Noreen Camacho APRN.JIMBO as Referral Management Liaison (Family Medicine) Dionna Uriarte PA-C as Referral Management Liaison (Family Medicine) [facility]: cardio Medical/Family history review Reviewed and updated problem list, medical/surgical/family/social history, medications, and allergies. Opioid use review Opioid Medications (last 90 days) No data to display Anxiety/Depression screening PHQ-9 Score: 6 (Mild Depression) Recommendation: continuing current treatment plan Cognitive screening Score: 5 Cognitive screening reviewed and No further action needed (score 3-5). Functional Observation Was the patient's Timed Up & Go test unsteady or >= 12 seconds? No Advance Care Planning Surrogate decision maker documented and/or advance directives scanned in chart Measurements BP 142/80 Pulse 60 Resp 16 Ht 160 cm (5' 3") Wt 68.5 kg (151 lb) SpO2 96% BMI 26.75 kg/m Vision Screening: Follows with optometry/ophthalmology Assessment/Plan Medicare [...] [facility]. She is uncertain about the outcome of the procedure and has a follow-up appointment with a different video game developer due to Dr. Seth's relocation to [place]. She also has a bunion on the [...] or lower extremity edema. 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 She is responsible for managing his medications and has concerns about his ability to live independently ifshe were to pass away. She has discussed these concerns with her children, who have medical and financial power of united states attorney. Past medical history, appointments, medications, allergies reviewed. Previous Medical History PAST MEDICAL HISTORY Diagnosis Date Acute systolic CHF (congestive heart failure) ([facility]) 01/04/2024 Echo 12/29/23. EF 50% Adjustment disorder [...] 60 Resp 16 Ht 160 cm (5' 3") Wt 68.5 kg (151 lb) SpO2 96% BMI 26.75 kg/m BP 138/74 Pulse 60 Resp 16 Ht 160 cm (5' 3") Wt 68.5 kg (151 lb) SpO2 96% BMI 26.75 kg/m Last 5 Encounter Wt Readings: Date: Wt: [...] symmetric. Sensation to light touch and crainal nerves2-12 intact.. Health Maintenance List Medicare Annual Wellness Visit due on 12/26/2024 DTaP,Tdap,Td Vaccine(4 - Td or Tdap) due on 01/08/2026 Covid-19 Vaccine(2023- season) due on 01/08/2026 Depression Screening due [...] Lymph 1.00 - 4.00 k/uL 1.08 1.15 [place]% % 4.8 5.6 Abs [place] <0.87 k/uL 0.40 0.39 Eosin% % 1.3 [...] Negative Ketones, Urine Negative Negative Negative Specific [place], Ur 1.005 - 1.030 1.011 1.019 Hemoglobin/Blood,Ur [...] 15 mmol/L 13 15 13 eGFR >=60 mL/min/1.73m 71 64 58 (L) Total Cholesterol, Nonfasting [...] who hold medical and financial power of united states attorney. Encouraged patient to en, sure plans are [...] which included preparing to see the patient, [id number] patient care, completing clinical documentation, performing a medically appropriate examination, counseling and educating the patient/family/caregiver and ordering medications, tests, or procedures. Carl Rendon MD Recording using [employer] software for draft documentation of the visit was discussed with the patient/authorized parts representative; all questions welcomed and answered. Patient/authorized parts representative agreed to proceed documented in this encounterTr[facility]06-13-2025 Telephone encounter Note * Telephone Encounter - Carl Rendon MD - 01/05/2025 12:50 PM EDT The following approved medication requests have been transmitted electronically. Requested Prescriptions Signed Prescriptions Disp Refills losartan (COZAAR) 100 mg tablet 90 tablet 1 Sig: Take 1 tablet by mouth once daily. Authorizing Provider: CARL RENDON MD [facility]06-13-2025 Miscellaneous Notes* Telephone Encounter - Carl Rendon MD - 01/05/2025 12:50 PM EDT The following approved medication requests have been transmitted electronically. Requested Prescriptions Signed Prescriptions Disp Refills losartan (COZAAR) 100 mg tablet 90 tablet 1 Sig: Take 1 tablet by mouth once daily. Authorizing Provider: CARL RENDON MD * Telephone Encounter - Ruth Blake LPN - 01/05/2025 10:38 AM EDT Prescription Refill Information The patient has been identified by name and date of : Yes Caregiver verified no other encounters exist for this prescription request: Yes Caregiver confirmed with patient/requestor that no other refills are due, in the near future, with this provider at this time: Yes The last office visit in the department: 07/05/24 Does the patient have a future office visit with this provider/department: Yes Requested Prescriptions Pending Prescriptions Disp Refills losartan (COZAAR) 100 mg tablet 90 tablet 1 Sig: Take 1 tablet by mouth once daily. Ruth Blake LPN January 05, 2025 10:39 AM * Telephone Encounter - Feng Riggs - 01/04/2025 5:07 PM EDT Patient has been identified by name and date of : Yes, Provider Julieta Date 01/04/2025 Time 5:10 Patient phones for refill(s): Requested Prescriptions Pending Prescriptions Disp Refills losartan (COZAAR) 100 mg tablet 90 tablet 1 Sig: Take 1 tablet by mouth once daily. Date of last office visit in primary care: 07/05/2024 Date of next office visit in primary care: 01/08/2025 Please advise. Thank you. Feng Riggs. documented in this encounterTr[facility]06-13-2025 Telephone encounter Note * Telephone Encounter - Ruth Blake LPN - 01/05/2025 10:38 AM EDT Prescription Refill Information The patient has been identified by name and date of : Yes Caregiver verified no other encounters exist for this prescription request: Yes Caregiver confirmed with patient/requestor that no other refills are due, in the near future, with this provider at this time: Yes The last office visit in the department: 07/05/24 Does the patient have a future office visit with this provider/department: Yes Requested Prescriptions Pending Prescriptions Disp Refills losartan (COZAAR) 100 mg tablet 90 tablet 1 Sig: Take 1 tablet by mouth once daily. Ruth Blake LPN January 05, 2025 10:39 AM [facility]06-[facility]25 Telephone encounter Note* Telephone Encounter - Feng Riggs - 01/04/2025 5:07 PM EDT Patient has been identified by name and date of : Yes, Provider Julieta Date 01/04/2025 Time 5:10 Patient phones for refill(s): Requested Prescriptions Pending Prescriptions Disp Refills losartan (COZAAR) 100 mg tablet 90 tablet 1 Sig: Take 1 tablet by mouth once daily. Date of last office visit in primary care: 07/05/2024 Date of next office visit in primary care: 01/08/2025 Please advise. Thank you. Feng Riggs. T [facility]05-05-2025 Telephone encounter Note* Telephone Encounter - Ana Dumont - 11/27/2024 11:01 AM EDT Prescription Refill Information The patient has been identified by name and date of : Yes Caregiver verified no other encounters exist for this prescription request: Yes Caregiver confirmed with patient/requestor that no other refills are due, in the near future, with this provider at this time: Yes The last office visit in the department: 07/05/24 Does the patient have a future office visit with this provider/department: Yes Requested Prescriptions Pending Prescriptions Disp Refills simvastatin (ZOCOR) 20 mg tablet 90 tablet 1 Sig: Take 1 tablet by mouth daily at bedtime. Ana Dumont November 27, 2024 11:01 AM [facility]05-05-2025 Miscellaneous Notes* Telephone Encounter - Ana Dumont - 11/27/2024 11:01 AM EDT Prescription Refill Information The patient has been identified by name and date of : Yes Caregiver verified no other encounters exist for this prescription request: Yes Caregiver confirmed with patient/requestor that no other refills are due, in the near future, with this provider at this time: Yes The last office visit in the department: 07/05/24 Does the patient have a future office visit with this provider/department: Yes Requested Prescriptions Pending Prescriptions Disp Refills simvastatin (ZOCOR) 20 mg tablet 90 tablet 1 Sig: Take 1 tablet by mouth daily at bedtime. Ana Dumont November 27, 2024 11:01 AM documented in this encounterTr[facility]04-07-2025 Telephone encounter Note * Telephone Encounter - Carl Rendon MD - 10/30/2024 10:42 AM EDT The following approved medication requests have been transmitted electronically. Requested Prescriptions Signed Prescriptions Disp Refills busPIRone (BUSPAR) 7.5 mg tablet 60 tablet 4 Sig: Take 1 tablet by mouth two times a day. Authorizing Provider: CARL RENDON MD [facility]04-07-2025 Miscellaneous Notes* Telephone Encounter - Carl Rendon MD - 10/30/2024 10:42 AM EDT The following approved medication requests have been transmitted electronically. Requested Prescriptions Signed Prescriptions Disp Refills busPIRone (BUSPAR) 7.5 mg tablet 60 tablet 4 Sig: Take 1 tablet by mouth two times a day. Authorizing Provider: CARL RENDON MD * Telephone Encounter - Najma Sanabria MA - 10/30/2024 10:41 AM EDT Prescription Refill Information The patient has been identified by name and date of : Yes Caregiver verified no other encounters exist for this prescription request: Yes Caregiver confirmed with patient/requestor that no other refills are due, in the near future, with this provider at this time: Yes The last office visit in the department: 06/2024 Does the patient have a future office visit with this provider/department: Yes Requested Prescriptions Pending Prescriptions Disp Refills busPIRone (BUSPAR) 7.5 mg tablet 60 tablet 4 Sig: Take 1 tablet by mouth two times a day. Najma Sanabria MA October 30, 2024 10:41 AM * Telephone Encounter - Dori Uribe - 10/30/2024 9:48 AM EDT Prescription Refill Information The patient has been identified by name and date of : Yes Caregiver verified no other encounters exist for this prescription request: Yes Caregiver confirmed with patient/requestor that no other refills are due, in the near future, with this provider at this time: Yes The last office visit in the department: 07-05-24 Does the patient have a future office visit with this provider/department: Yes Requested Prescriptions Pending Prescriptions Disp Refills busPIRone (BUSPAR) 7.5 mg tablet 60 tablet 4 Sig: Take 1 tablet by mouth two times a day. Dori Gloria October 30, 2024 9:49 AM documented in this encounterTr[facility]04-07-2025 Telephone encounter Note * Telephone Encounter - Najma Sanabria MA - 10/30/2024 10:41 AM EDT Prescription Refill Information The patient has been identified by name and date of : Yes Caregiver verified no other encounters exist for this prescription request: Yes Caregiver confirmed with patient/requestor that no other refills are due, in the near future, with this provider at this time: Yes The last office visit in the department: 06/2024 Does the patient have a future office visit with this provider/department: Yes Requested Prescriptions Pending Prescriptions Disp Refills busPIRone (BUSPAR) 7.5 mg tablet 60 tablet 4 Sig: Take 1 tablet by mouth two times a day. Namja Sanabria MA October 30, 2024 10:41 AM [facility]04-07-2025 Telephone encounter Note* Telephone Encounter - Dori Uribe - 10/30/2024 9:48 AM EDT Prescription Refill Information The patient has been identified by name and date of : Yes Caregiver verified no other encounters exist for this prescription request: Yes Caregiver confirmed with patient/requestor that no other refills are due, in the near future, with this provider at this time: Yes The last office visit in the department: 07-05-24 Does the patient have a future office visit with this provider/department: Yes Requested Prescriptions Pending Prescriptions Disp Refills busPIRone (BUSPAR) 7.5 mg tablet 60 tablet 4 Sig: Take 1 tablet by mouth two times a day. Dori Gloria October 30, 2024 9:49 AM [facility]12-[facility]24 NoteHNO ID: [id number] Author: DIONNA URIARTE PA-C Service: ? 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 PLC BREAST CLIP PERC Left breast TONSILLECTOMY PRIMARY/SECONDARY Tonsillectomy Family History FAMILY HISTORY Problem Relation [...] Health Maintenance List DTaP,Tdap,Td Vaccine(4 - Td (more content not included)...[facility]12-11-2024 History of Present illness Narrative* Dionna Uriarte PA- C - 07/05/2024 1:14 PM EST Chief Complaint Patient presents with: Recheck HPI [...] 1 tablet by mouth two times a day.Per cardio, held per cardio 03/2024 No current [...] Size: Regular Adult) Pulse 63 Temp 36.7 C (98.1 F) Resp 16 Wt 68.9 kg (152 lb) SpO2 96% BMI 27.79 kg/m General Appearance: Well appearing, alert, in no [...] sleep study once she is back from [place]. Patient in agreement 5. Acute systolic CHF (congestive heart failure) (HCC) - ICD9: 428.21, 428.0, ICD10: I50.21 Cont with cardio Follow up in 6 months for wellness. Labs prior. Dionna Uriarte PA-C documented in this encounterTrinity [facility]12-07-2024 Telephone encounter Note * Telephone Encounter - Carl Rendon MD - 07/01/2024 11:41 AM EST The following approved medication requests have been transmitted electronically. Requested Prescriptions Signed Prescriptions Disp Refills amLODIPine (NORVASC) 5 mg tablet 90 tablet 1 Sig: Take 1 tablet by mouth once daily. Authorizing Provider: CARL RENDON MD [facility]12-07-2024 Miscellaneous Notes* Telephone Encounter - Carl Rendon MD - 07/01/2024 11:41 AM EST The following approved medication requests have been transmitted electronically. Requested Prescriptions Signed Prescriptions Disp Refills amLODIPine (NORVASC) 5 mg tablet 90 tablet 1 Sig: Take 1 tablet by mouth once daily. Authorizing Provider: CARL RENDON MD * Telephone Encounter - Dori Uribe - 06/30/2024 4:16 PM EST Prescription Refill Information The patient has been identified by name and date of : Yes Caregiver verified no other encounters exist for this prescription request: Yes Caregiver confirmed with patient/requestor that no other refills are due, in the near future, with this provider at this time: Yes The last office visit in the department: 05-02-24 Does the patient have a future office visit with this provider/department: Yes Requested Prescriptions Pending Prescriptions Disp Refills amLODIPine (NORVASC) 5 mg tablet 90 tablet 1 Sig: Take 1 tablet by mouth once daily. Dori Gloria June 30, 2024 4:16 PM documented in this encounterTr[facility]12-06-2024 Telephone encounter Note * Telephone Encounter - Dori Uribe - 06/30/2024 4:16 PM EST Prescription Refill Information The patient has been identified by name and date of : Yes Caregiver verified no other encounters exist for this prescription request: Yes Caregiver confirmed with patient/requestor that no other refills are due, in the near future, with this provider at this time: Yes The last office visit in the department: 05-02-24 Does the patient have a future office visit with this provider/department: Yes Requested Prescriptions Pending Prescriptions Disp Refills amLODIPine (NORVASC) 5 mg tablet 90 tablet 1 Sig: Take 1 tablet by mouth once daily. Dori Gloria June 30, 2024 4:16 PM [facility]12-06-2024 Telephone encounter Note* Telephone Encounter - Vanessa Waldron - 06/30/2024 11:30 AM EST Prescription Refill Information The patient has been identified by name and date of : Yes Caregiver verified no other encounters exist for this prescription request: Yes Caregiver confirmed with patient/requestor that no other refills are due, in the near future, with this provider at this time: Yes The last office visit in the department: 05-01-24 Does the patient have a future office visit with this provider/department: Yes Requested Prescriptions Pending Prescriptions Disp Refills venlafaxine ER (EFFEXOR XR) 150 mg 24 hr capsule 90 capsule 1 Sig: Take 1 capsule by mouth once daily. Patient states she takes the medication at bed time. Vanessa Waldron June 30, 2024 11:30 AM [facility]12-06-2024 Miscellaneous Notes* Telephone Encounter - Vanessa Waldron - 06/30/2024 11:30 AM EST Prescription Refill Information The patient has been identified by name and date of : Yes Caregiver verified no other encounters exist for this prescription request: Yes Caregiver confirmed with patient/requestor that no other refills are due, in the near future, with this provider at this time: Yes The last office visit in the department: 05-01-24 Does the patient have a future office visit with this provider/department: Yes Requested Prescriptions Pending Prescriptions Disp Refills venlafaxine ER (EFFEXOR XR) 150 mg 24 hr capsule 90 capsule 1 Sig: Take 1 capsule by mouth once daily. Patient states she takes the medication at bed time. Vanessa Waldron June 30, 2024 11:30 AM documented in this encounterTr[facility]11-04-2024 Telephone encounter Note * Telephone Encounter - Jeanna Doss - 05/29/2024 4:04 PM EST Prescription Refill Information The patient has been identified by name and date of : Yes Caregiver verified no other encounters exist for this prescription request: Yes Caregiver confirmed with patient/requestor that no other refills are due, in the near future, with this provider at this time: Yes The last office visit in the department: [id number] Does the patient have a future office visit with this provider/department: No Requested Prescriptions Pending Prescriptions Disp Refills simvastatin (ZOCOR) 20 mg tablet 90 tablet 1 Sig: Take 1 tablet by mouth daily at bedtime. busPIRone (BUSPAR) 7.5 mg tablet 60 tablet 4 Sig: Take 1 tablet by mouth two times a day. Jeanna Doss May 29, 2024 4:06 PM [facility]11-04-2024 Miscellaneous Notes* Telephone Encounter - Jeanna Doss - 05/29/2024 4:04 PM EST Prescription Refill Information The patient has been identified by name and date of : Yes Caregiver verified no other encounters exist for this prescription request: Yes Caregiver confirmed with patient/requestor that no other refills are due, in the near future, with this provider at this time: Yes The last office visit in the department: [id number] Does the patient have a future office visit with this provider/department: No Requested Prescriptions Pending Prescriptions Disp Refills simvastatin (ZOCOR) 20 mg tablet 90 tablet 1 Sig: Take 1 tablet by mouth daily at bedtime. busPIRone (BUSPAR) 7.5 mg tablet 60 tablet 4 Sig: Take 1 tablet by mouth two times a day. Jeanna Doss May 29, 2024 4:06 PM documented in this encounterTrinity [facility]10-07-2024 History of Present illness Narrative* Noreen Camacho APRN.DIRECTOR ASSET - 05/01/2024 11:56 AM EDT Chief Complaint Patient presents with: Covid Positive: [...] 1 tablet by mouth two times a day.Per cardio, held per cardio 03/2024 busPIRone (BUSPAR) [...] EXAM: BP 123/80 Pulse 72 Temp 36.2 C (97.1 F) Resp 16 Wt 64.4 kg (142 lb) SpO2 97% BMI 25.97 kg/m General Appearance: Well appearing, alert, in no [...] severe drug to drug interactions. Discussed with patientwho verbalized understanding. At this time paxlovid is not appropriate and patient is having mild symptoms no red flag symptoms. Noreen Camacho APRN.DIRECTOR ASSET documented in this encounterTrinity Health [facility]10-07-2024 Telephone encounter Note * Telephone Encounter - Odalis Wall MA - 05/01/2024 8:58 AM EDT Patient spoke to triage and made in office appointment Odalis Wall MA [facility]10-07-2024 Miscellaneous Notes* Telephone Encounter - Odalis Wall MA - 05/01/2024 8:58 AM EDT Patient spoke to triage and made in office appointment Odalis Wall MA * Telephone Encounter - Vanessa Waldron - 05/01/2024 8:10 AM EDT Cheryl is calling Carl Rendon MD today with concern regarding headache, runny nose, body achesand fatigue Patient tested positive for COVID and is asking for Paxlovid. Message put in One-Click as well. Patient has been identified by name and birthdate. Duration of symptoms: 3 days Person calling: self Call patient at: on cell [phone] (home) [phone] (cell) Was an appointment scheduled: No Closing statement: Symptom Call: Thank you for calling [facility], your call is very important. A nurse will call in approximately 2-4 hours during business hours. If this is an emergency, please contact 911. Vanessa Waldron documented in this encounterTr[facility]10-07-2024 Telephone encounter Note * Telephone Encounter - Jordana Shanks RN - 05/01/2024 8:20 AM EDT Patient calls for Covid + and requesting Paxlovid. Patient not able to log into for VV. Spoke with provider. Ok to schedule in person. Care advice reviewed. Patient verbalizes understanding. Reason for Disposition [1] HIGH RISK patient (e.g., weak immune system, age > 64 years, obesity with BMI 30 or higher, , chronic lung disease or other chronic medical condition) AND [2] COVID symptoms (e.g., cough, fever) (Exceptions: Already seen by PCP and no new or worsening symptoms.) Answer Assessment - Initial Assessment Questions 1. COVID-19 DIAGNOSIS: At Home Test on Wednesday. 2. COVID-19 EXPOSURE: Patient not certain. 3. ONSET:Wednesday Evening 4. WORST SYMPTOM: Body Aches 5. COUGH: Occasional from Post-Nasal Drip 6. FEVER: No 7. RESPIRATORY STATUS: No shortness of breath, wheezing, unable to speak 8. [id number]: Same 9. OTHER SYMPTOMS: Fatigue, headache, runny nose, body aches, sinus congestion, post nasal drip, mild sore throat on Wednesday evening. 10. HIGH RISK DISEASE: CHF, Afib. 11. VACCINE:Update to date as of 10 days ago. 12. : NA 13. O2 SATURATION MONITOR: Not able. Protocols used: COVID-19 - Diagnosed or [id number] [facility]10-07-2024 Miscellaneous Notes* Telephone Encounter - Jordana Shanks RN - 05/01/2024 8:20 AM EDT Patient calls for Covid + and requesting Paxlovid. Patient not able to log into for VV. Spoke with provider. Ok to schedule in person. Care advice reviewed. Patient verbalizes understanding. Reason for Disposition [1] HIGH RISK patient (e.g., weak immune system, age > 64 years, obesity with BMI 30 or higher, , chronic lung disease or other chronic medical condition) AND [2] COVID symptoms (e.g., cough, fever) (Exceptions: Already seen by PCP and no new or worsening symptoms.) Answer Assessment - Initial Assessment Questions 1. COVID-19 DIAGNOSIS: At Home Test on Wednesday. 2. COVID-19 EXPOSURE: Patient not certain. 3. ONSET:Wednesday Evening 4. WORST SYMPTOM: Body Aches 5. COUGH: Occasional from Post-Nasal Drip 6. FEVER: No 7. RESPIRATORY STATUS: No shortness of breath, wheezing, unable to speak 8. [id number]: Same 9. OTHER SYMPTOMS: Fatigue, headache, runny nose, body aches, sinus congestion, post nasal drip, mild sore throat on Wednesday evening. 10. HIGH RISK DISEASE: CHF, Afib. 11. VACCINE:Update to date as of 10 days ago. 12. : NA 13. O2 SATURATION MONITOR: Not able. Protocols used: COVID-19 - Diagnosed or [id number] documented in this encounterTr[facility]10-07-2024 Telephone encounter Note * Telephone Encounter - Vanessa Waldron - 05/01/2024 8:10 AM EDT Cheryl is calling Carl Rendon MD today with concern regarding headache, runny nose, body achesand fatigue Patient tested positive for COVID and is asking for Paxlovid. Message put in One-Click as well. Patient has been identified by name and birthdate. Duration of symptoms: 3 days Person calling: self Call patient at: on cell [phone] (home) [phone] (cell) Was an appointment scheduled: No Closing statement: Symptom Call: Thank you for calling [facility], your call is very important. A nurse will call in approximately 2-4 hours during business hours. If this is an emergency, please contact 911. Vanessa Waldron [facility]09-19-2024 Note* Addendum Note - Carl Rendon MD - 04/13/2024 8:19 AM EDTAddended by: CARL RENDON on: 04/13/2024 08:19 AM Modules accepted: Orders [facility]09-19-2024 Miscellaneous Notes* Addendum Note - Carl Rendon MD - 04/13/2024 8:19 AM EDTAddended by: CARL RENDON on: 04/13/2024 08:19 AM Modules accepted: Orders documented in this encounterTrinity [facility]09-19-2024 History of Present illness Narrative* Ruth Blake LPN - 04/13/2024 7:53 AM EDT Scan on 04/12/2024 11:12 AM by Provider, LANA Bills: Consultation - Cardiology documented in this encounterTr[facility]07-30-2024 History of Present illness Narrative* Dionna Uriarte PA-C - 02/22/2024 10:44 AM EDT Chief Complaint Patient presents with: Recheck: Medication follow up HPI Cheryl Abarca is a 89 year old female who presents here today for follow up anxiety. Patient states that she is feeling much better. She is now moved into her [facility]. She feels like this had helped settled her nerves a lot. She does feel like she is tolerating buspar as well. No other concerns. Past medical history, appointments, medications, allergies reviewed. [...] on File Prior to Visit Medication Sig calcium Carbonate 300 mg, 750mg, (TUMS) 300 mg (750 mg) chewable tablet Take 1 tablet by mouth two times a day. CHOLECALCIFEROL, VITAMIN D3, ORAL Take 2,000 Int'l Units/day by mouth once daily. busPIRone (BUSPAR) 7.5 mg tablet Take 1 tablet by mouth two times a day. venlafaxine ER (EFFEXOR XR) 150 mg 24 hr capsule Take 1 capsule by mouth once daily. metoprolol tartrate, short acting, (LOPRESSOR) 25 mg tablet Take 1 tablet by mouth two times a day.Per cardio amiodarone (PACERONE) 200 mg tablet Take 200 [...] Social History Tobacco Use Smoking status: Former Years: 2 Types: Pipe, Cigarettes Quit date: 12/27/2023 Years since quittin.1 Smokeless tobacco: Never Tobacco comments: Used to smoke cigarettes. Vaping Use Vaping Use: Never used Substance Use Topics Alcohol use: Yes Comment: wine- 4-6 oz 5 times a week Drug use: No Review of Symptoms REVIEW OF SYSTEMS See hpi EXAM: BP 110/70 (BP Site: Left Arm, BP Position: Sitting, BP Cuff Size: Regular Adult) Pulse (!) 55 Temp 36.5 C (97.7 F) Resp 16 Wt 67.6 kg (149 lb) SpO2 97% BMI 27.25 kg/m General Appearance: Well appearing, alert, in no acute distress, well-hydrated, well nourished.. Health Maintenance List DTaP,Tdap,Td Vaccine(4 - Td or Tdap) due on 03/30/2022 Influenza Vaccine(1) due on 03/26/2024 Depression Screening due on 12/26/2024 Diabetes Screening due on 01/18/2027 Bone Density Screening Completed Advance Directive Discussion Completed RSV Vaccine Completed Shingrix Vaccine Completed Covid-19 Vaccine Completed Pneumococcal Vaccine: 65+ Completed Data reviewed ASSESSMENT/PLAN: 1. LIZZY (generalized anxiety disorder) - ICD9: 300.02, ICD10: F41.1 (primary diagnosis) Improved Will continue current management 2. Adjustment disorder with depressed mood - ICD9: 309.0, ICD10: F43.21 As above. Dionna Uriarte PA-C documented in this encounterTr[facility]07-16-2024 History of Present illness Narrative* Ruth Blake LPN - 02/08/2024 1:34 PM EDT Scan on 02/08/2024 12:59 PM by Provider, LANA Bills: Consultation - Cardiology documented in this encounterTr[facility]07-09-2024 Instructions* Patient Instructions* Dionna Uriarte PA-C - 02/01/2024 10:54 AM EDT Start buspirone 7.5mg. taking twice a day about 8 hrs apart. Okay to take lorazepam just as needed. Recheck in 3 weeks. documented in this encounterTr[facility]07-09-2024 History of Present illness Narrative* Dionna Uriarte PA-C - 02/01/2024 10:33 AM EDT Chief Complaint Patient presents with: Recheck HPI Cheryl Abarca is a 88 year old female who presents here today for Above Complaints.. Patient was seen 3 weeks ago for increased anxiety. We increased effexor to 150mg at last visit. She does not feel better anxiety huff yet. States she wakes up in mornings feeling shaky, sweaty, nauseated. Reports she has been needing 1-2 ativan a day to get through the day. She is falling asleep okay at night. Feels like evenings she manages well. She has started with counseling. Has had 2 sessions. Going once a week. Reports that she has had chronic depression/anxiety. Had been fairly well managed until recent diagnosis and hospitalization. Past medical history, appointments, medications, allergies reviewed. [...] on File Prior to Visit Medication Sig calcium Carbonate 300 mg, 750mg, (TUMS) 300 mg (750 mg) chewable tablet Take 1 tablet by mouth two times a day. CHOLECALCIFEROL, VITAMIN D3, ORAL Take 2,000 Int'l Units/day by mouth once daily. LORazepam (ATIVAN) 0.5 mg Take 1 tablet by mouth once daily as needed (anxiety) for up to 4 days. venlafaxine ER (EFFEXOR XR) 150 mg 24 hr capsule Take 1 capsule by mouth once daily. metoprolol tartrate, short acting, (LOPRESSOR) 25 mg tablet Take 1 tablet by mouth two times a day.Per cardio amiodarone (PACERONE) 200 mg tablet Take 200 [...] Social History Tobacco Use Smoking status: Former Years: 2 Types: Pipe, Cigarettes Quit date: 12/27/2023 Years since quittin.0 Smokeless tobacco: Never Tobacco comments: Used to smoke cigarettes. Vaping Use Vaping Use: Never used Substance Use Topics Alcohol use: Yes Comment: wine- 4-6 oz 5 times a week Drug use: No Review of Symptoms REVIEW OF SYSTEMS See hpi EXAM: BP 122/80 (BP Site: Left Arm, BP Position: Sitting, BP Cuff Size: Regular Adult) Pulse (!) 54 Temp 36.9 C (98.4 F) Resp 16 Wt 65.8 kg (145 lb) SpO2 98% BMI 26.51 kg/m General Appearance: Well appearing, alert, in no acute distress, well-hydrated, well nourished.. Health Maintenance List DTaP,Tdap,Td Vaccine(4 - Td or Tdap) due on 03/30/2022 Influenza Vaccine(1) due on 03/26/2024 Diabetes Screening due on 01/18/2027 Bone Density Screening Completed Advance Directive Discussion Completed Behavioral Health Screening Completed RSV Vaccine Completed Shingrix Vaccine Completed Covid-19 Vaccine Completed Pneumococcal Vaccine: 65+ Completed Data reviewed ASSESSMENT/PLAN: 1. LIZZY (generalized. anxiety disorder) - ICD9: 300.02, ICD10: F41.1 (primary diagnosis) Start buspar Continue lorazepam for now. Just for PRN use. Continue effexor 150mg. Recheck in 3 weeks 2. Panic disorder - ICD9: 300.01, ICD10: F41.0 As above - LORAZEPAM 0.5 MG TABLET 3. Adjustment disorder with depressed mood - ICD9: 309.0, ICD10: F43.21 As above. Dionna Uriarte PA-C documented in this encounterTr[facility]07-03-2024 Telephone encounter Note * Telephone Encounter - Irene Arceo RN - 01/26/2024 4:25 PM EDT Spoke with patient. Given message from provider's office. Patient verbalizes understanding. She will call Cardiology for refills of Apixaban, Furosemide and Potassium. Scheduled sooner appointment with Dionna for med F/U. Irene Arceo RN [facility]07-03-2024 Miscellaneous Notes* Telephone Encounter - Irene Arceo RN - 01/26/2024 4:25 PM EDT Spoke with patient. Given message from provider's office. Patient verbalizes understanding. She will call Cardiology for refills of Apixaban, Furosemide and Potassium. Scheduled sooner appointment with Dionna for med F/U. Irene Arceo RN * Telephone Encounter - Ruth Blake LPN - 01/26/2024 2:03 PM EDT Spoke with pt. She is at an office visit and will call back once visit is over. Please see all messages below. The message from Najma is regarding her refill request of Eliquis. Also advised pt office has message for her as well. Ruth Blake LPN * Telephone Encounter - Najma Sanabria MA - 01/26/2024 1:46 PM EDT See 's note as well. Per refill request: Let patient know that I recommend getting this prescription from cardiology as they are treating her a.fib. Najma Sanabria MA * Telephone Encounter - Dionna Uriarte PA-C - 01/26/2024 12:31 PM EDT Let patient know that ativan is a controlled substance and as we discussed during OV on 01/11, it isnot a medication that I want her to take [facility]. No refill will be given. We can discuss more atnext visit. If she wants to move up the appointment to next week, that would be okay. In regard to the potassium prescription, Does cardiology still have patient on lasix? Dionna Uriarte PA-C * Telephone Encounter - Ruth Blake LPN - 01/26/2024 12:10 PM EDT Please see message below. Ruth Blake LPN * Telephone Encounter - Norma Fernandez - 01/26/2024 11:19 AM EDT Cheryl is calling Calr Rendon MD today for 2 reasons. First, to request Medication that was prescribed while in [facility]: Lorazepam .05 mg; taking up to 3 tablets daily as needed. Per patient, she wants this medication increased due to only taking the edge off anxiety and she still has symptoms. Next, she is taking Potassium 20 mEq once daily, she needs a prescription sent to [facility]. [facility]was last filled by the hospital. Patient has been identified by name and birthdate. Duration of symptoms: N/A Person calling: self Call patient at: on cell [phone] (home) [phone] (cell) Was an appointment scheduled: No Closing statement: Results or non-symptom based questions: Thank you for calling [facility], your call will be returned within the next business day. Norma Gloria documented in this encounterTrinity [facility]07-03-2024 Telephone encounter Note * Telephone Encounter - Ruth Blake LPN - 01/26/2024 2:03 PM EDT Spoke with pt. She is at an office visit and will call back once visit is over. Please see all messages below. The message from Najma is regarding her refill request of Eliquis. Also advised pt office has message for her as well. Ruth Blake LPN [facility]07-03-2024 Telephone encounter Note* Telephone Encounter - Najma Sanabria MA - 01/26/2024 1:47 PM EDT This note has been placed in another phone encounter. Najma Sanabria MA [facility]07-03-2024 Miscellaneous Notes* Telephone Encounter - Najma Sanabria MA - 01/26/2024 1:47 PM EDT This note has been placed in another phone encounter. Najma Sanabria MA * Telephone Encounter - Dionna Uriarte PA-C - 01/26/2024 12:30 PM EDT Let patient know that I recommend getting this prescription from cardiology as they are treating her a.fib. Thanks. Dionna Uriarte PA-C * Telephone Encounter - Norma Fernandez - 01/26/2024 11:23 AM EDT Prescription Refill Information The patient has been identified by name and date of : Yes Caregiver verified no other encounters exist for this prescription request: Yes Caregiver confirmed with patient/requestor that no other refills are due, in the near future, with this provider at this time: No The last office visit in the department: 01/12/24 Does the patient have a future office visit with this provider/department: Yes 02/09/24 Requested Prescriptions Pending Prescriptions Disp Refills apixaban (ELIQUIS) 5 mg tab(s) 180 tablet 1 Sig: Take 1 tablet by mouth two times a day. Norma Gloria January 26, 2024 11:24 AM documented in this encounterTr[facility]07-03-2024 Telephone encounter Note * Telephone Encounter - Najma Sanabria MA - 01/26/2024 1:46 PM EDT See 's note as well. Per refill request: Let patient know that I recommend getting this prescription from cardiology as they are treating her a.fib. Najma Sanabria MA [facility]07-03-2024 Telephone encounter Note* Telephone Encounter - Dionna Uriarte PA-C - 01/26/2024 12:31 PM EDT Let patient know that ativan is a controlled substance and as we discussed during OV on 01/11, it isnot a medication that I want her to take [facility]. No refill will be given. We can discuss more atnext visit. If she wants to move up the appointment to next week, that would be okay. In regard to the potassium prescription, Does cardiology still have patient on lasix? Dionna Uriarte PA-C [facility]07-03-2024 Telephone encounter Note* Telephone Encounter - Dionna Uriarte PA-C - 01/26/2024 12:30 PM EDT Let patient know that I recommend getting this prescription from cardiology as they are treating her a.fib. Thanks. Dionna Uriarte PA-C [facility]07-03-2024 Telephone encounter Note* Telephone Encounter - Ruth Blake LPN - 01/26/2024 12:10 PM EDT Please see message below. Ruth Blake LPN [facility]07-03-2024 Telephone encounter Note* Telephone Encounter - [place] Norma Gloria - 01/26/2024 11:23 AM EDT Prescription Refill Information The patient has been identified by name and date of : Yes Caregiver verified no other encounters exist for this prescription request: Yes Caregiver confirmed with patient/requestor that no other refills are due, in the near future, with this provider at this time: No The last office visit in the department: 01/12/24 Does the patient have a future office visit with this provider/department: Yes 02/09/24 Requested Prescriptions Pending Prescriptions Disp Refills apixaban (ELIQUIS) 5 mg tab(s) 180 tablet 1 Sig: Take 1 tablet by mouth two times a day. Norma Sandoval [facility] January 26, 2024 11:24 AM [facility]07-03-2024 Telephone encounter Note* Telephone Encounter - [place] Norma Gloria - 01/26/2024 11:19 AM EDT Cheryl is calling Carl Rendon MD today for 2 reasons. First, to request Medication that was prescribed while in [facility]: Lorazepam .05 mg; taking up to 3 tablets daily as needed. Per patient, she wants this medication increased due to only taking the edge off anxiety and she still has symptoms. Next, she is taking Potassium 20 mEq once daily, she needs a prescription sent to [facility]. Thiswas last filled by the hospital. Patient has been identified by name and birthdate. Duration of symptoms: N/A Person calling: self Call patient at: on cell [phone] (home) [phone] (cell) Was an appointment scheduled: No Closing statement: Results or non-symptom based questions: Thank you for calling [facility], your call will be returned within the next business day. Norma Gloria [facility]07-02-2024 History of Present illness Narrative* Najma Sanabria MA - 01/25/2024 10:54 AM EDT Scan on 01/21/2024 3:31 PM by Provider, External, LANA: Consultation - Cardiology Najma Sanabria MA documented in this encounterTrinity [facility]06-28-2024 Telephone encounter Note * Telephone Encounter - Najma Sanabria MA - 01/21/2024 4:14 PM EDT Patient notified and voiced understanding. Sent instructions via my chart. Najma Sanabria MA [facility]06-28-2024 Miscellaneous Notes* Telephone Encounter - Najma Sanabria MA - 01/21/2024 4:14 PM EDT Patient notified and voiced understanding. Sent instructions via my chart. Najma Sanabria MA * Telephone Encounter - Carl Rendon MD - 01/21/2024 3:20 PM EDT I agree with the Vit D 2,000 international unit(s) 's once a day. The calcium should be 600 mg twice a day. (Easiest is one extra strength tums twice a day. I would not start the bisphosphonate at this time but encourage walking for exercise to strengthen the bones. * Telephone Encounter - Shelly Hoang LPN - 01/21/2024 1:40 PM EDT Spoke with patient and reviewed results and recommendations with her. Patient asked that the message be forwarded to Dr Rendon or Víctor to review and have them advise her on what she should do. Shelly Hoang LPN * Telephone Encounter - Odalis Wall MA - 01/19/2024 10:29 AM EDT Left message for patient to call office back Odalis Wall MA * Telephone Encounter - Sherry Higginbotham APRN.CNP - 01/19/2024 9:19 AM EDT Bone density testing shows osteopenia with a 10 year probability of a hip fracture of 4.2%. Recommend she start a biphosphate medication to reduce hip fracture risk,.Also recommend she take 2000 units of vitamin D daily along with 1200 mg of calcium daily along with weight bearing exercises. If shewould like me to send medication let me know. Sherry Higginbotham APRN.JIMBO documented in this encounterTrinity [facility]06-28-2024 Telephone encounter Note * Telephone Encounter - Carl Rendon MD - 01/21/2024 3:20 PM EDT I agree with the Vit D 2,000 international unit(s) 's once a day. The calcium should be 600 mg twice a day. (Easiest is one extra strength tums twice a day. I would not start the bisphosphonate at this time but encourage walking for exercise to strengthen the bones. [facility]06-28-2024 Telephone encounter Note* Telephone Encounter - Shelly Hoang LPN - 01/21/2024 1:40 PM EDT Spoke with patient and reviewed results and recommendations with her. Patient asked that the message be forwarded to Dr Rendon or Víctor to review and have them advise her on what she should do. Shelly Hoang LPN [facility]06-28-2024 Telephone encounter Note* Telephone Encounter - Ruth Blake LPN - 01/21/2024 8:33 AM EDT Pt notified of same. Ruth Blake LPN [facility]06-28-2024 Miscellaneous Notes* Telephone Encounter - Ruth Blake LPN - 01/21/2024 8:33 AM EDT Pt notified of same. Ruth Blake LPN * Telephone Encounter - Carl Rendon MD - 01/20/2024 8:32 PM EDT Let patient know repeat UA was ok and repeat electrolyte panel was ok and liver functions were backto normal. documented in this encounterTrinity [facility]06-27-2024 Telephone encounter Note * Telephone Encounter - Carl Rendon MD - 01/20/2024 8:32 PM EDT Let patient know repeat UA was ok and repeat electrolyte panel was ok and liver functions were backto normal. [facility]06-26-2024 Telephone encounter Note* Telephone Encounter - Odalis Wall MA - 01/19/2024 10:29 AM EDT Left message for patient to call office back Odalis Wall MA T [facility]06-26-2024 Telephone encounter Note* Telephone Encounter - hSerry Higginbotham APRN.CNP - 01/19/2024 9:19 AM EDT Bone density testing shows osteopenia with a 10 year probability of a hip fracture of 4.2%. Recommend she start a biphosphate medication to reduce hip fracture risk,.Also recommend she take 2000 units of vitamin D daily along with 1200 mg of calcium daily along with weight bearing exercises. If shewould like me to send medication let me know. Sherry Higginbotham APRN.CNP [facility] Work Phone: 1(577) 597-596506-21-2024 History of Present illness Narrative* James Mcbride RT(Jose Luis) - 01/14/2024 9:30 AM EDT Radiology Service Progress Note PATIENT NAME: Cheryl Abarca DATE OF SERVICE: January 14, 2024 TIME: 9:42 AM PATIENT IDENTITY VERIFICATION COMPLETED USING TWO (2) IDENTIFIERS: Name and Date of confirmedby patient verbally. FALL SCREENING: Has the patient had 2 falls in the last year or 1 fall with injury or currently using an Ambulatory Assistive Device (Walker, Cane, Wheelchair, Crutches, etc.)? No PATIENT GENDER DATA: Female. status: : No status: NO. PATIENT RELEVANT IMPLANT DATA REVIEWED: Not Applicable PATIENT PRESENTS WITH AN IMPLANTABLE OR ATTACHED PRODUCTION CONTROL ANALYST: No RADIOLOGY DEPARTMENT: Bone Density PERIPHERAL IV DATA: Not applicable SIGNED BY: RT Poppy(Jose Luis) January 14, 2024 9:42 AM documented in this encounterTrinity [facility]06-19-2024 Telephone encounter Note * Telephone Encounter - Ruth Blake LPN - 01/12/2024 2:27 PM EDT Advised pt of appointment. She confirms she has this on her calendar at home. Ruth Blake LPN [facility]06-19-2024 Miscellaneous Notes* Telephone Encounter - Ruth Blake LPN - 01/12/2024 2:27 PM EDT Advised pt of appointment. She confirms she has this on her calendar at home. Ruth Blake LPN * Telephone Encounter - Dionna Uriarte PA-C - 01/12/2024 2:18 PM EDT Noted. Please make sure patient is aware. Thank you! * Telephone Encounter - Ruth Blake LPN - 01/12/2024 1:46 PM EDT Spoke with Noreen at [facility]. Pt has appointment scheduled 01/21/24. Ruth Blake LPN * Telephone Encounter - Dionna Uriarte PA-C - 01/12/2024 1:29 PM EDT Please check with [facility] to see if patient has hospital follow up visit with them. Dionna Uriarte PA-C documented in this encounterTr[facility] Telephone encounter Note * Telephone Encounter - Dionna Uriarte PA-C - 01/12/2024 2:18 PM EDT Noted. Please make sure patient is aware. Thank you! [facility] Telephone encounter Note* Telephone Encounter - Ruth Blake LPN - 01/12/2024 1:46 PM EDT Spoke with Noreen at [facility]. Pt has appointment scheduled 01/21/24. Ruth Blake LPN [facility]06-19-[facility]24 Telephone encounter Note* Telephone Encounter - Dionna Uriarte PA-C - 01/12/2024 1:29 PM EDT Please check with [facility] to see if patient has hospital follow up visit with them. Dionna Uriarte PA-C [facility]06-19-2024 Instructions* Patient Instructions* Dionna Uriarte PA-C - 01/12/2024 1:13 PM EDT Please set up follow up with cardiology. documented in this encounterTrinity [facility]06-19-2024 History of Present illness Narrative* Dionna Uriarte PA-C - 01/12/2024 12:55 PM EDT Chief Complaint Patient presents with: Hospital F/U [facility] Cheryl Abarca is a 88 year old female who presents here today for Hospital Discharge Follow up.. Patient was back into hospital on 01/09/2024 and d/c on 01/09 for recurrent a. Fib. Patient is not sure when next follow up with cardio is scheduled yet. Has been experience increased anxiety over the past 10 days. Has had episodes of trouble breathing with tingling across body and nausea. Has been on effexor 75mg for years. Past medical history, appointments, medications, allergies reviewed. [...] on File Prior to Visit Medication Sig amiodarone (PACERONE) 200 mg tablet Take 200 mg by mouth once daily. metoprolol tartrate, short acting, (LOPRESSOR) 25 mg tablet Take 1 tablet by mouth once daily. Per cardio (Patient taking differently: Take 25 mg by mouth two times a day. Per cardio) POTASSIUM ORAL Take 20 mEq by mouth [...] mouth once daily. venlafaxine ER (EFFEXOR XR) 75 mg 24 hr capsule Take 1 capsule by mouth once daily. No current facility-administered medications on file prior to visit. Social History Social History Tobacco Use Smoking status: Former Years: 2 Types: Pipe, Cigarettes Quit date: 12/27/2023 Years since quittin.0 Smokeless tobacco: Never Tobacco comments: Used to smoke cigarettes. Currently smokes a pipe with her occasionally Vaping Use Vaping Use: Never used Substance Use Topics Alcohol use: Yes Comment: wine- 4-6 oz 5 times a week Drug use: No Review of Symptoms REVIEW OF SYSTEMS See hpi EXAM: BP 112/76 (BP Site: Left Arm, BP Position: Sitting, BP Cuff Size: Regular Adult) Pulse (!) 50 Temp 36.8 C (98.2 F) Resp 16 Wt 68.9 kg (152 lb) BMI 27.79 kg/m General Appearance: Well appearing, alert, in no acute distress, well-hydrated, well nourished.. Health Maintenance List DTaP,Tdap,Td Vaccine(4 - Td or Tdap) due on 03/30/2022 Diabetes Screening due on 01/03/2027 Bone Density Screening Completed Influenza Vaccine Completed Advance Directive Discussion Completed Behavioral Health Screening Completed RSV Vaccine Completed Shingrix Vaccine Completed Covid-19 Vaccine Completed Pneumococcal Vaccine: 65+ Completed Data reviewed ASSESSMENT/PLAN: 1. Adjustment disorder with depressed mood - ICD9: 309.0, ICD10: F43.21 (primary diagnosis) Will increase effexor to 150mg Recheck in 1 month Discussed proper use of ativan for as needed panic attacks. Ativan is not a ad terminal makeup operator option 2. Panic disorder - ICD9: 300.01, ICD10: F41.0 As above 3. Paroxysmal atrial fibrillation (HCC) - ICD9: 427.31, ICD10: I48.0 Will make sure patient has follow up with cardiology. 4. Acute systolic CHF (congestive heart failure) (HCC) - ICD9: 428.21, 428.0, ICD10: I50.21 Asymptomatic Follow up with cardiology 5. Essential hypertension, benign - ICD9: 401.1, ICD10: I10 - Controlled - Recommend home blood pressure monitoring, to bring results to next visit - Encouraged sodium restriction, DASH or Mediterranean diet - Recommend regular aerobic exercise Dionna Uriarte PA-C documented in this encounterTr[facility]06-[facility]24 Telephone encounter Note * Telephone Encounter - Ruth Blake LPN - 01/11/2024 1:34 PM EDT Pt reports that she was in [facility] and does have a f/u appointment scheduled tomorrow. States she does have hx of anxiety/depression. Pt will discuss medication at ov. Ruth Blake LPN [facility]06-18-2024 Miscellaneous Notes* Telephone Encounter - Ruth Blake LPN - 01/11/2024 1:34 PM EDT Pt reports that she was in [facility] and does have a f/u appointment scheduled tomorrow. States she does have hx of anxiety/depression. Pt will discuss medication at ov. Ruth Blake LPN * Telephone Encounter - Dionna Uriarte PA-C - 01/11/2024 1:14 PM EDT She should schedule follow up to discuss medication. I'm not sure why she was put on the medication. Was she back in hospital? I don't see any records yet. Dionna Uriarte PA-C * Telephone Encounter - Dori Uribe - 01/11/2024 11:58 AM EDT Cheryl is calling Carl Rendon MD today with concern regarding Medication Question (Ativan 0.5 mg as needed 3 times daily given at [facility] and also told to ask PCP about Buspar instead this was from the cardiology department at [facility]) Patient is not sure about taking the Ativan??? Patient has been identified by name and birthdate. Duration of symptoms: N/A Person calling: self Call patient at: at home [phone] (home) [phone] (cell) Was an appointment scheduled: No Closing statement: Results or non-symptom based questions: Thank you for calling [facility], your call will be returned within the next business day. Dori Gloria documented in this encounterTrinity [facility]06-18-2024 Telephone encounter Note * Telephone Encounter - Dionna Uriarte PA-C - 01/11/2024 1:14 PM EDT She should schedule follow up to discuss medication. I'm not sure why she was put on the medication. Was she back in hospital? I don't see any records yet. Dionna Uriarte PA-C [facility]06-[facility] Telephone encounter Note* Telephone Encounter - Brenda Oleary MA - 01/11/2024 12:03 PM EDT Norvasc was refilled to [id number] with 1 refill on 11/26/23. Should not need refill at this time. Brenda Oleary MA [facility]06-18-2024 Miscellaneous Notes* Telephone Encounter - Brenda Oleary MA - 01/11/2024 12:03 PM EDT Norvasc was refilled to [facility] with 1 refill on 11/26/23. Should not need refill at this time. Brenda Oleary MA * Telephone Encounter - Dori Uribe - 01/11/2024 11:55 AM EDT Prescription Refill Information The patient has been identified by name and date of : Yes Caregiver verified no other encounters exist for this prescription request: Yes Caregiver confirmed with patient/requestor that no other refills are due, in the near future, with this provider at this time: Yes The last office visit in the department: 01-04-24 Does the patient have a future office visit with this provider/department: No Requested Prescriptions Pending Prescriptions Disp Refills amLODIPine (NORVASC) 5 mg tablet 90 tablet 1 Sig: Take 1 tablet by mouth once daily. Dori Gloria January 11, 2024 11:56 AM documented in this encounterTrinity [facility]06-18-2024 Telephone encounter Note * Telephone Encounter - Dori Urbie - 01/11/2024 11:58 AM EDT Cheryl is calling Carl Rendon MD today with concern regarding Medication Question (Ativan 0.5 mg as needed 3 times daily given at [facility] and also told to ask PCP about Buspar instead this was from the cardiology department at [facility]) Patient is not sure about taking the Ativan??? Patient has been identified by name and birthdate. Duration of symptoms: N/A Person calling: self Call patient at: at home [phone] (home) [phone] (cell) Was an appointment scheduled: No Closing statement: Results or non-symptom based questions: Thank you for calling [facility], your call will be returned within the next business day. Dori Gloria [facility]06-18-2024 Telephone encounter Note* Telephone Encounter - Dori Uribe - 01/11/2024 11:55 AM EDT Prescription Refill Information The patient has been identified by name and date of : Yes Caregiver verified no other encounters exist for this prescription request: Yes Caregiver confirmed with patient/requestor that no other refills are due, in the near future, with this provider at this time: Yes The last office visit in the department: 01-04-24 Does the patient have a future office visit with this provider/department: No Requested Prescriptions Pending Prescriptions Disp Refills amLODIPine (NORVASC) 5 mg tablet 90 tablet 1 Sig: Take 1 tablet by mouth once daily. Dori Gloria January 11, 2024 11:56 AM [facility]06-14-2024 Telephone encounter Note* Telephone Encounter - Dionna Uriarte PA-C - 01/07/2024 10:21 AM EDT Noted and updated. [facility]06-14-20[facility] Miscellaneous Notes* Telephone Encounter - Dionna Uriarte PA-C - 01/07/2024 10:21 AM EDT Noted and updated. * Telephone Encounter - Jyoti Schumacher LPN - 01/07/2024 9:48 AM EDT Pt. sees [facility] and they changed Pt's meds yesterday. Metoprolol changed to 25 mg daily and Amiodarone 200 mg bid x 1 week then 1 daily. documented in this encounterTrinity [facility]06-14-2024 Telephone encounter Note * Telephone Encounter - Jyoti Schumacher LPN - 01/07/2024 9:48 AM EDT Pt. sees [facility] and they changed Pt's meds yesterday. Metoprolol changed to 25 mg daily and Amiodarone 200 mg bid x 1 week then 1 daily. [facility] Work Phone: [phone]) 164-958706-12-2024 Telephone encounter Note* Telephone Encounter - Patricia Camara RN - 01/05/2024 9:37 AM EDT Pt called and is notified of providers results and instructions. Pt voices understanding. Sent copyof labs to [facility]- Attfidel Purett at fax # [phone]. Patricia Camara RN [facility]06-12-2024 Miscellaneous Notes* Telephone Encounter - Patricia Camara RN - 01/05/2024 9:37 AM EDT Pt called and is notified of providers results and instructions. Pt voices understanding. Sent copyof labs to [facility]- Tracy Pruett at fax # [phone]. Patricia Camara RN * Telephone Encounter - Dionna Uriarte PA-C - 01/05/2024 9:21 AM EDT Let patient know that one of the liver enzymes was just mildly elevated. Recheck in 2 weeks to trend.. Kidney function is normal. Blood counts are okay Thyroid is normal. B12 is wnl. Urine is dark. She may be slightly dehydrated. Recheck urine in 2 weeks as well. Cholesterol is normal. LDL at 60 which is great. . Please also send copy of labs to [facility]- tracy Pruett as Just a FYI. Thanks. Dionna Uriarte PA-C documented in this encounterTr[facility]06-12-2024 Telephone encounter Note * Telephone Encounter - Dionna Uriarte PA-C - 01/05/2024 9:21 AM EDT Let patient know that one of the liver enzymes was just mildly elevated. Recheck in 2 weeks to trend.. Kidney function is normal. Blood counts are okay Thyroid is normal. B12 is wnl. Urine is dark. She may be slightly dehydrated. Recheck urine in 2 weeks as well. Cholesterol is normal. LDL at 60 which is great. . Please also send copy of labs to [facility]- attn John Pruett as Just a FYI. Thanks. Dionna Uriarte PA-C [facility]06-11-2024 Telephone encounter Note* Telephone Encounter - Melody Mckeon RN - 01/04/2024 11:18 AM EDT - [facility]- reports patient had labs done for R. Uriarte today, and wanted to know if patient had blood draw for thyroid. Informed , there is a thyroid lab in the blood draw patient completed today. [facility]06-11-2024 Miscellaneous Notes* Telephone Encounter - Melody Mckeon RN - 01/04/2024 11:18 AM EDT - [facility]- reports patient had labs done for R. Uriarte today, and wanted to know if patient had blood draw for thyroid. Informed , there is a thyroid lab in the blood draw patient completed today. documented in this encounterTrinity Health [facility]06-11-2024 Instructions* Patient Instructions* Dionna Uriarte PA-C - 01/04/2024 8:38 AM EDT Please let cardiology know pulse has been in low 50s. documented in this encounterTrinity Health [facility]06-11-2024 History of Present illness Narrative* Dionna Uriarte PA-C - 01/04/2024 8:33 AM EDT Chief Complaint Patient presents with: Hospital F/U: A Fib HPI Cheryl Abarca is a 88 year old female who presents here today for Hospital Discharge Follow up.. Patient here for follow up on recent ER visits and hospitalizations. On 12/27/23, during routine medicare wellness visit, patient was noted to be in a. Fib. She was sent to ER for evaluation. Initial eval showed a.fib with RVR, CXR showed evidence of Mild CHF and BNP was elevated at 406.5. patient was given metoprolol in IV and rhythm corrected. Patient was then d/c home from ER. The following morning, patient was feeling shortness of breath and went back to ER. Work up showed continued evidence of CHF and O2 sat was 87%. This time patient was admitted to hospitalization for cardiac evaluation. During hospitalization, patient had ECHO showing EF of 50%. Patient d/c on 12/30/2023 with lasix, potassium, metoprolol 25mg BID, and apixaban. On 01/01 patient started noting shortness of breath again so presented back to ER. She was again in a.fib. corrected with IV metoprolol. She was advised to increase toprol dose to 50mg BID and to lower dose back to 25 BID if pulse was under 60. Patients last 3 home bp readings are control at 120-130/70s. Her pulse has been in low 50s. She has follow up with cardiology at 1030am today. Past medical history, appointments, medications, allergies reviewed. Previous Medical History PAST MEDICAL HISTORY Diagnosis Date Adjustment disorder with depressed mood 04/08/2005 Advance [...] on File Prior to Visit Medication Sig POTASSIUM ORAL Take 20 mEq by mouth once daily. metoprolol tartrate, short acting, (LOPRESSOR) 25 mg tablet Take 25 mg by mouth two times a day. furosemide (LASIX) 40 mg tablet Take 40 mg by mouth two times a day. apixaban (ELIQUIS) 5 mg tab(s) Take 5 mg by mouth two times a day. simvastatin (ZOCOR) 20 mg tablet Take 1 tablet by mouth daily at bedtime. losartan (COZAAR) 100 mg tablet Take 1 tablet by mouth once daily. amLODIPine (NORVASC) 5 mg tablet Take 1 tablet by mouth once daily. venlafaxine ER (EFFEXOR XR) 75 mg 24 hr capsule Take 1 capsule by mouth once daily. No current facility-administered medications on file prior to visit. Social History Social History Tobacco Use Smoking status: Some Days Years: 2 Types: Pipe, Cigarettes Last attempt to quit: 01/08/2008 Years since quittin.0 Smokeless tobacco: Never Tobacco comments: Used to smoke cigarettes. Currently smokes a pipe with her occasionally Vaping Use Vaping Use: Never used Substance Use Topics Alcohol use: Yes Comment: wine- 4-6 oz 5 times a week Drug use: No Review of Symptoms REVIEW OF SYSTEMS GENERAL: No weight loss, malaise or fevers NECK: Negative for lumps, goiter, pain and significant neck swelling RESPIRATORY: See HPI CARDIOVASCULAR: See HPI EXAM: BP 120/60 (BP Site: Left Arm, BP Position: Sitting, BP Cuff Size: Regular Adult) Pulse (!) 55 Resp 18 Wt 68.9 kg (152 lb) SpO2 97% BMI 27.79 kg/m General Appearance: Well appearing, alert, in no acute distress, well-hydrated, well nourished.. Lungs: Lungs clear to auscultation. No wheezing, rhonchi, rales.. Heart: RRR without murmur, gallop, or rubs. No ectopy. Extremities: No deformities, edema, skin discoloration, clubbing or cyanosis. Good capillary refill. . Peripheral Pulses: Normal. Health Maintenance List DTaP,Tdap,Td Vaccine(4 - Td or Tdap) due on 03/30/2022 Diabetes Screening due on 12/25/2025 Bone Density Screening Completed Influenza Vaccine Completed Advance Directive Discussion Completed Behavioral Health Screening Completed RSV Vaccine Completed Shingrix Vaccine Completed Covid-19 Vaccine Completed Pneumococcal Vaccine: 65+ Completed Data reviewed See hpi ASSESSMENT/PLAN: 1. New onset atrial fibrillation (HCC) - ICD9: 427.31, ICD10: I48.91 (primary diagnosis) Continue with cardiology. HR low, patient to discuss this with cardiology Check labs today 2. Paroxysmal atrial fibrillation (HCC) - ICD9: 427.31, ICD10: I48.0 As above 3. Acute systolic CHF (congestive heart failure) (HCC) - ICD9: 428.21, 428.0, ICD10: I50.21 - HFpEF 50+ - New diagnosis - cont lasix. 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 CHADS2-Vasc Score Breakdown 5 Total Score 1 Female 2 Age >= 75 years old 1 History of CHF 1 History of hypertension Dionna Uriarte PA-C I spent a total of 45 minutes on the date of the service which included preparing to see the patient, [id number] patient care, completing clinical documentation, obtaining and/or reviewing separately obtained history, performing a medically appropriate examination, counseling and educating the pat ient/family/caregiver, ordering medications, tests, or procedures, independently interpreting results (not separately reported), and communicating results to the patient/family/caregiver. documented in this encounterTrinity [facility]06-06-2024 History of Present illness Narrative* Olga River LPN - 12/30/2023 4:50 PM EDT Scan on 12/29/2023 5:51 PM by Provider, LANA Bills: Consultation - Cardiology documented in this encounterTrinity [facility]06-05-2024 Telephone encounter Note * Telephone Encounter - Carl Rendon MD - 12/29/2023 10:31 AM EDT Noted and aware. [facility]06-[facility] Miscellaneous Notes* Telephone Encounter - Carl Rendon MD - 12/29/2023 10:31 AM EDT Noted and aware. * Telephone Encounter - Mya Saha LPN - 12/29/2023 10:06 AM EDT Patient's son Mac, called to state that patient was admitted to [facility] 12/28/2023. Due to not feeling well. Is being followed by cardiology for A-Fib. documented in this encounterTrinity Health [facility]06-05-2024 Telephone encounter Note * Telephone Encounter - Mya Saha LPN - 12/29/2023 10:06 AM EDT Patient's son Mac, called to state that patient was admitted to [facility] 12/28/2023. Due to not feeling well. Is being followed by cardiology for A-Fib. [facility]06-04[facility] History of Present illness Narrative* Olga River LPN - 12/28/2023 6:07 PM EDT Scan on 12/28/2023 11:02 AM by Provider, LANA Bills documented in this encounterTrinity Health [facility]06-04-2024 Telephone encounter Note * Telephone Encounter - Dionna Uriarte PA-C - 12/28/2023 12:15 PM EDT Noted. [facility]06-04-[facility]24 Miscellaneous Notes* Telephone Encounter - Dionna Uriarte PA-C - 12/28/2023 12:15 PM EDT Noted. * Telephone Encounter - Najma Sanabria MA - 12/28/2023 12:02 PM EDT Spoke with patient and she is currently admitted in a room. They have done blood work, EKG and ECHO. She indicated that she will be there today possibly until tomorrow depending on results. Patient indicated that she will check her my chart when she gets home. Any issues she will let us know and we can mail it regarding her AVS from her visit with Dionna. I told patient that when she is D/C will set up a ER follow up, if needed. Patient did indicated that she tried to schedule with Dr. Ta but they were closed by the time she called yesterday and she was going to do that today but went back to the hospital. She indicated that the SOB had increased. Najma Sanabria MA * Telephone Encounter - Dionna Uriarte PA-C - 12/28/2023 8:17 AM EDT I was just notified that patient is back in hospital and admitted. Is this correct. Please reach out to patient and/or . Dionna Uriarte PA-C * Telephone Encounter - Dionna Uriarte PA-C - 12/28/2023 7:40 AM EDT Yes should schedule follow up. I'm concerned that workup wasn't complete at ER. Did she scheduled with cardiology yet and if so, when is it scheduled? Please ask her to do the labs that I ordered. I don't see that the ER checked her TSH. She can access AVS on [employer], we can mail it, or we can print when she is here for ER follow up. Dionna Uriarte PA-C * Telephone Encounter - Najma Sanabria MA - 12/27/2023 4:31 PM EDT ER report given to Dionna to review. Najma Sanabria MA * Telephone Encounter - Irene Arceo RN - 12/27/2023 3:38 PM EDT Patient calling to ask if she needs ER follow up visit after being sent to [facility] today at OV? She says she had labs, EKG and received Metoprolol. She was instructed to follow up with Dr. Ta, Cardiology. If no ER f/u visit, when should she be seen again in PCP office? She is asking for copy of AVS. She says she could pick it up in Medical Records Dept. Please let her know when it is available. Irene Arceo, RN documented in this encounterTrinity [facility]06-04-2024 Telephone encounter Note * Telephone Encounter - Najma Sanabria MA - 12/28/2023 12:02 PM EDT Spoke with patient and she is currently admitted in a room. They have done blood work, EKG and ECHO. She indicated that she will be there today possibly until tomorrow depending on results. Patient indicated that she will check her my chart when she gets home. Any issues she will let us know and we can mail it regarding her AVS from her visit with Dionna. I told patient that when she is D/C will set up a ER follow up, if needed. Patient did indicated that she tried to schedule with Dr. Ta but they were closed by the time she called yesterday and she was going to do that today but went back to the hospital. She indicated that the SOB had increased. Najma Sanabria MA [facility]06-04-2024 Telephone encounter Note* Telephone Encounter - Dionna Uriarte PA-C - 12/28/2023 8:17 AM EDT I was just notified that patient is back in hospital and admitted. Is this correct. Please reach out to patient and/or . Dionna Uriarte PA-C [facility]06-04-[facility]24 Telephone encounter Note* Telephone Encounter - Dionna Uriarte PA-C - 12/28/2023 7:40 AM EDT Yes should schedule follow up. I'm concerned that workup wasn't complete at ER. Did she scheduled with cardiology yet and if so, when is it scheduled? Please ask her to do the labs that I ordered. I don't see that the ER checked her TSH. She can access AVS on [employer], we can mail it, or we can print when she is here for ER follow up. Dionna Uriarte PA-C [facility]06-03-2024 Telephone encounter Note* Telephone Encounter - Najma Sanabria MA - 12/27/2023 4:31 PM EDT ER report given to Dionna to review. Najma Sanabria MA [facility]06-03-2024 Telephone encounter Note* Telephone Encounter - Irene Arceo RN - 12/27/2023 3:38 PM EDT Patient calling to ask if she needs ER follow up visit after being sent to [facility] today at OV? She says she had labs, EKG and received Metoprolol. She was instructed to follow up with Dr. Ta, Cardiology. If no ER f/u visit, when should she be seen again in PCP office? She is asking for copy of AVS. She says she could pick it up in Medical Records Dept. Please let her know when it is available. Irene Arceo RN [facility]06-03-2024 Instructions* Patient Instructions* Dionna Uriarte PA-C - 12/27/2023 8:12 AM EDT WHAT YOU CAN DO TO PREVENT FALLS [...] review all the medicines you take, even [id number]-[id number] medicines. As you get older, the way medicines work in your body can change. Some medicines, or combinations of medicines, can make you sleepy or dizzy andcan cause you to fall. 3. Have your [...] apply if you have certain medical conditions. BONE MINERAL DENSITY PATIENT INSTRUCTIONS Bone mineral density testing measures the amount of calcium in certain parts of your bones. This information determines how strong your bones are. The test is used to detect osteoporosis, a disease in which the bone's mineral content and density are low, increasing a person's risk of fractures. Thelumbar spine (lower back) and the hip are the skeletal sites usually examined. For the test, remember that: 1. You cannot take this test if you are . 2. Eat a normal diet on the day of the test. 3. Take your medications as you normally would. 4. DO NOT take calcium supplements (such as Tums) for 24 hours before the test. 5. On the day of the test, leave valuables (jewelry or credit cards) at home. 6. The test should be performed prior to oral, rectal or IV contrast studies, or at least 7 days after any of these studies. For the test, you may be asked to wear a hospital gown. You will lie on your back, on a padded table, in a comfortable position. Generally, you can resume your usual activities immediately. documented in this encounterTr[facility]06-[facility] History of Present illness Narrative* Dionna Uriarte PA-C - 12/27/2023 7:58 AM EDT Images from the original note were not included. Cheryl Abarca is a 88 year old female here for a Medicare wellness visit. Medicare Health Risk Assessment General Health Very good Exercise: Minutes/Day 20 min Exercise: Days/Week 5 days Alcohol: Daily Use 2-3 times a week Alcohol: Drinks/Day 1 or 2 Alcohol: 6 or more drinks Never Feel off balance No Concerns: Teeth/Dentures No Concerns: Sexual function No Troubled by feelings Stressed Frequency: Eating healthy diet Nearly every day ADLs requiring help None of the above Safety precautions in home/vehicle Yes Smoke, vape, chews tobacco No Difficulty hearing Yes, I wear a hearing aid Difficulty seeing No Current Providers Specialists: I have reviewed specialist-related care of the patient in the medical record. Medical/Family history review Reviewed and updated problem list, medical/surgical/family/social history, medications, and allergies. Opioid use review Opioid Medications (last 90 days) No data to display Anxiety/Depression screening PHQ-2 Score: 0 (Lower risk for depression) LIZZY-2 Score: 0 (Lower risk for anxiety) Recommendation: continuing current treatment plan Cognitive screening Mini Cog Score: 5 Cognitive screening reviewed and No further action needed (score 3-5). Functional Observation Was the patient's Timed Up & Go test unsteady or ? 12 seconds? No Advance Care Planning Surrogate decision maker and/or advance care plan documented Measurements BP 136/86 Pulse 70 Resp 16 Ht 5' 2.008" (1.58m) Wt 153 lb 6.4 oz (69.6kg) SpO2 99% BMI 28.05 kg/(m^2). Vision Screening: Follows with optometry/ophthalmology Assessment/Plan Medicare annual wellness visit, subsequent (Z00.00) - Counseled on healthy diet and regular exercise - Fall avoidance information provided - Personalized prevention plan provided Chief Complaint Patient presents with: Medicare Wellness Exam HPI Cheryl Abarca is a 88 year old female who presents here today for extensive exam. Patient with hx of HTN, hyperlipidemia, depression, OA, and those as below. Patient smoking tobacco pipe daily. No other concerns today. Past medical history, appointments, medications, allergies reviewed. Previous Medical History PAST MEDICAL HISTORY Diagnosis Date Adjustment disorder with depressed mood 04/08/2005 Advance [...] COLONOSCOPY FLX DX W/COLLJ SPEC WHEN PFRMD 02/08/13 Colonoscopy COLONOSCOPY W/BIOPSY SINGLE/MULTIPLE 01-02-02 Repeat in EGD 08/15/04 PAST SURGICAL HISTORY OF RIGHT NEEDLE BIOPSY, Breast PAST SURGICAL HISTORY OF 11/2006 MOHS-PRECANCEROUS AREA ON LEFT EYEBROW. PLC BREAST [...] on File Prior to Visit Medication Sig simvastatin (ZOCOR) 20 mg tablet Take 1 tablet by mouth daily at bedtime. losartan (COZAAR) 100 mg tablet Take 1 tablet by mouth once daily. amLODIPine (NORVASC) 5 mg tablet Take 1 tablet by mouth once daily. venlafaxine ER (EFFEXOR XR) 75 mg 24 hr capsule Take 1 capsule by mouth once daily. No current facility-administered medications on file prior to visit. Social History Social History Tobacco Use Smoking status: Some Days Years: 2 Types: Pipe, Cigarettes Last attempt to quit: 01/08/2008 Years since quittin.9 Smokeless tobacco: Never Tobacco comments: Used to smoke cigarettes. Currently smokes a pipe with her occasionally Vaping Use Vaping Use: Never used Substance Use Topics Alcohol use: Yes Comment: wine- 4-6 oz 5 times a week Drug use: No Review of Symptoms REVIEW OF SYSTEMS GENERAL: No weight loss, malaise or fevers HEENT: No changes in hearing or vision, no nose bleeds or other nasal problems NECK: Negative for lumps, goiter, pain and significant neck swelling RESPIRATORY: Negative for cough, hemoptysis, wheezing, COPD, dyspnea or shortness of breath CARDIOVASCULAR: Negative for chest pain, leg swelling, CHF or palpitations some lightheadedness with activity GI: Negative for abdominal discomfort, blood in stools or black stools, change in bowel habit, heart burn, nausea, vomiting : No history of dysuria, frequency or incontinence MUSCULOSKELETAL: chronic knee/hip pain. SKIN: Negative for lesions, rash, and itching PSYCH: has been under stress. HEMATOLOGY/LYMPHOLOGY: Negative for prolonged bleeding, bruising easily or swollen nodes ENDOCRINE: Negative for cold or heat intolerance, polyuria, polydipsia and goiter NEURO: No history of headaches, syncope, paralysis, seizures or tremors EXAM: BP 136/86 Pulse 70 Resp 16 Ht 157.5 cm (5' 2.01") Wt 69.6 kg (153 lb 6.4 oz) SpO2 99% BMI 28.05 kg/m General Appearance: Well appearing, alert, in no acute distress, well-hydrated, well nourished.. Skin: Skin color, texture, turgor normal, no suspicious rashes or lesions. Head: Normocephalic, no masses, lesions, tenderness or abnormalities. Eyes: Anicteric sclera. Pupils are equally round and reactive to light. Extraocular movements are intact. . Ears: deferred- hearing aids. Nose/Sinuses: Nares normal, septum midline, mucosa normal, no drainage or sinus tenderness. Oropharynx: Lips, mucosa, and tongue normal, teeth and gums normal, oropharynx normal. Neck: Supple, no adenopathy; thyroid symmetric, normal size, no bruits. Lungs: Lungs clear to auscultation. No wheezing, rhonchi, rales.. Heart: Positive findings: irregularly irregular rhythm. Abdomen: Normal abdominal exam, Abdomen soft, non-tender. Bowel sounds normal. No masses, organomegaly. Extremities: No deformities, edema, skin discoloration, clubbing or cyanosis. Good capillary refill. . Peripheral Pulses: Normal. Neurologic: Gait normal. Reflexes normal and symmetric. Sensation grossly intact.. Health Maintenance List DTaP,Tdap,Td Vaccine(4 - Td or Tdap) due on 03/30/2022 Advance Directive Discussion due on 07/26/2023 Behavioral Health Screening Never done Diabetes Screening due on 12/25/2025 Bone Density Screening Completed Influenza Vaccine Completed RSV Vaccine Completed Shingrix Vaccine Completed Covid-19 Vaccine Completed Pneumococcal Vaccine: 65+ Completed Data reviewed ECG: A fib with RVR. Rate 130 LBBB and left axis deviation ASSESSMENT/PLAN: 1. Medicare annual wellness visit, subsequent - ICD9: V70.0, ICD10: Z00.00 (primary diagnosis) - Counseled on healthy diet and regular exercise - Bone mineral density ordered - Smoking cessation encouraged; discussed risks to health and quitting strategies. Patient is contemplative - Counseled patient on limiting alcohol intake to 1 drink per day 2. Advance directive discussed with patient - ICD9: V65.49, ICD10: Z71.89 Up to date 3. Smoker - ICD9: 305.1, ICD10: F17.200 - Cessation encouraged. - Physiologic and physical aspects of tobacco addiction as well as strategies for quitting were discussed. - Counseling was given focusing on the harmful effects of this addiction especially given the patient's medical condition(s) which will be worsened because of the chemicals in tobacco. 4. Sleep apnea, unspecified type - ICD9: 780.57, ICD10: G47.30 Asymptomatic 5. Hyperlipidemia, mixed - ICD9: 272.2, ICD10: E78.2 - Control undetermined, due for labs - Continue current medications - Counseled on healthy diet and regular exercise - LIPID PANEL, NONFASTING 6. Essential hypertension, benign - ICD9: 401.1, ICD10: I10 - Controlled - Continue current medications - Recommend home blood pressure monitoring, to bring results to next visit - Encouraged sodium restriction, DASH or Mediterranean diet - Recommend regular aerobic exercise - COMPREHENSIVE METABOLIC PANEL - URINALYSIS, WITH MICROSCOPIC - COMPLETE BLOOD COUNT AND DIFFERENTIAL 7. Primary osteoarthritis involving multiple joints - ICD9: 715.98, ICD10: M15.9 Discussed tylenol arthritis and topical diclofenac 8. Fatigue, unspecified type - ICD9: 780.79, ICD10: R53.83 - THYROID STIMULATING HORMONE - VITAMIN B12 9. Asymptomatic menopausal state - ICD9: V49.81, ICD10: Z78.0 - DXA-AXIAL SKELETON - DXA TRABECULAR BONE SCORE (TBS) 10. Cardiac arrhythmia, unspecified cardiac arrhythmia type - ICD9: 427.9, ICD10: I49.9 See below - ECG COMPLETE 11. Adjustment disorder with depressed mood - ICD9: 309.0, ICD10: F43.21 Overall stable Patient decline med adjustment 12. Atrial fibrillation with RVR (HCC) - ICD9: 427.31, ICD10: I48.91 Newly diagnosed. Patient has been symptomatic however she was not aware of the possible correlation. Toward end of visit she let me know that her watch has been telling her she has had abnormal rhythm for about 1 month. Not every day. Given newly onset a.fib with RVR and recent symptoms, needs emergent cardiac evaluation. Patient advised to go to ER. She agrees to go. I offered to call for ambulance, she declines. Her willtake her straight to [facility] ER. ER notified. Patient given ecg to take with her. Patient to follow up after discharge. Labs can be done in future. Patient will schedule DEXA at a later time. Dionna Uriarte PA-C I spent a total of 52 minutes on the date of the service which included preparing to see the patient, [id number] patient care, completing clinical documentation, obtaining and/or reviewing separately obtained history, performing a medically appropriate examination, counseling and educating the pat ient/family/caregiver, ordering medications, tests, or procedures, communicating with other HCPs (not separately reported), and communicating results to the patient/family/caregiver. documented in this encounterTr[facility]05-[facility] Telephone encounter Note * Telephone Encounter - Najma Sanabria MA - 11/26/2023 9:18 AM EDT Patient has been identified by name and date of : Yes, Provider Dr Rendon Date 11/25/2023 Time9:20 am Requested Prescriptions Pending Prescriptions Disp Refills simvastatin (ZOCOR) 20 mg tablet 90 tablet 1 Sig: Take 1 tablet by mouth daily at bedtime. losartan (COZAAR) 100 mg tablet 90 tablet 1 Sig: Take 1 tablet by mouth once daily. amLODIPine (NORVASC) 5 mg tablet 90 tablet 1 Sig: Take 1 tablet by mouth once daily. venlafaxine ER (EFFEXOR XR) 75 mg 24 hr capsule 90 capsule 1 Sig: Take 1 capsule by mouth once daily. RX INSTRUCTIONS: Patient aware RX will be sent to pharmacy. No need to notify patient. Najma Sanabria MA [facility]05-03-2024 Miscellaneous Notes* Telephone Encounter - Najma Sanabria MA - 11/26/2023 9:18 AM EDT Patient has been identified by name and date of : Yes, Provider Dr Rendon Date 11/25/2023 Time9:20 am Requested Prescriptions Pending Prescriptions Disp Refills simvastatin (ZOCOR) 20 mg tablet 90 tablet 1 Sig: Take 1 tablet by mouth daily at bedtime. losartan (COZAAR) 100 mg tablet 90 tablet 1 Sig: Take 1 tablet by mouth once daily. amLODIPine (NORVASC) 5 mg tablet 90 tablet 1 Sig: Take 1 tablet by mouth once daily. venlafaxine ER (EFFEXOR XR) 75 mg 24 hr capsule 90 capsule 1 Sig: Take 1 capsule by mouth once daily. RX INSTRUCTIONS: Patient aware RX will be sent to pharmacy. No need to notify patient. Najma Sanabria MA documented in this encounterTrinity [facility]11-01-2023 Miscellaneous Notes* Telephone Encounter - Carl Rendon MD - 05/26/2023 9:26 PM EDT The following approved medication requests have been transmitted electronically. Requested Prescriptions Signed Prescriptions Disp Refills simvastatin (ZOCOR) 20 mg tablet 90 tablet 1 Sig: Take 1 tablet by mouth daily at bedtime. Authorizing Provider: CARL RENDON MD * Telephone Encounter - Najma Sanabria MA - 05/26/2023 10:41 AM EDT Patient dropped off Application for the [facility]. Please contact patient when ready Najma Sanabria MA * Telephone Encounter - Odalis Wall Ma - 05/26/2023 10:00 AM EDT Patient last visit with PCP 02/10/23 Follow up appointment scheduled 12/27/23 Odalis Wall Ma * Telephone Encounter - Faye Guillen - 05/26/2023 9:49 AM EDT Patient has been identified by name and date of : Yes Requested Prescriptions Pending Prescriptions Disp Refills simvastatin (ZOCOR) 20 mg tablet 90 tablet 1 Sig: Take 1 tablet by mouth daily at bedtime. RX INSTRUCTIONS: Patient aware RX will be sent to pharmacy. No need to notify patient. Faye Guillen documented in this encounterTrinity [facility]07-28-2023 Miscellaneous Notes* Telephone Encounter - Erika Gonsalves RN - 02/19/2023 12:30 PM EDT faxed paperwork as requested * Telephone Encounter - Erika Gonsalves RN - 02/19/2023 10:30 AM EDT Azalia from admissions at [facility] calling as pt and her are moving to [facility] at [place]. She is calling as she needs a copy of demographics sheet, copy of insurance cards if available, last H&P, last OV note and a current med list faxed to [phone]. documented in this encounterTrinity [facility]07-19-[facility]23 History of Present illness Narrative* Carl Rendon MD - 02/10/2023 9:40 AM EDT Chief Complaint Patient presents with: Pain HPI Cheryl Abarca is a 87 year old female who presents here today for knee pain follow up. Office visit - knee pain 02/10/2023 Patient was seen for bilateral knee pain on 12/16/2022. Her knee x-rays showed patellofemoral disease and did go to PHYSICAL THERAPY. She has a HEP that she has been doing and feels much better. Has adull ache at times but has not needed any regular pain medication. Office visit - medicare wellness 12/2022 Patient with hx of HTN, hyperlipidemia, smoker, depression and those as below. Patient overall doing well. Will be starting Physical Therapy for her knee Office visit - Bilateral knee pain and increased diarrhea 11/2022 Patient has been having bilateral knee pain for the past 6 months and seems to be hurting more. Hurts when getting up from sitting and going up and down steps. They will click at times. No grinding. No locking, giving out or swelling. Has been doing some leg lifts and seems to be helping. Still playing golf. Patient has noticed an increase in diarrhea over the past winter. When she gets up her first BM is normal. She will eat breakfast ( cereal) and have diarrhea. No diarrhea through out the day. No melena or blood. Last colonoscopy was 2012 and was unremarkable. No antibiotics in the past 6 months. Was in [place] in the last 6 months and november of had well water Past medical history, appointments, medications, allergies reviewed. Previous Medical History PAST MEDICAL HISTORY Diagnosis Date Adjustment disorder with depressed mood 04/08/2005 Advance [...] COLONOSCOPY FLX DX W/COLLJ SPEC WHEN PFRMD 02/08/13 Colonoscopy COLONOSCOPY W/BIOPSY SINGLE/MULTIPLE 01-02-02 Repeat in EGD 08/15/04 PAST SURGICAL HISTORY OF RIGHT NEEDLE BIOPSY, Breast PAST SURGICAL HISTORY OF 11/2006 MOHS-PRECANCEROUS AREA ON LEFT EYEBROW. PLC BREAST [...] on File Prior to Visit Medication Sig simvastatin (ZOCOR) 20 mg tablet Take 1 tablet by mouth daily at bedtime. losartan (COZAAR) 100 mg tablet Take 1 tablet by mouth once daily. venlafaxine ER (EFFEXOR XR) 75 mg 24 hr capsule Take 1 capsule by mouth once daily. amLODIPine (NORVASC) 5 mg tablet Take 1 tablet by mouth once daily. No current facility-administered medications on file prior to visit. Social History Social History Tobacco Use Smoking status: Some Days Years: 2.00 Types: Pipe, Cigarettes Last attempt to quit: 01/08/2008 Years since quittin.1 Smokeless tobacco: Never Tobacco comments: Used to smoke cigarettes. Currently smokes a pipe with her occasionally Vaping Use Vaping Use: Never used Substance Use Topics Alcohol use: Yes Comment: wine- 4-6 oz 5 times a week Drug use: No Review of Symptoms REVIEW OF SYSTEMS See HPI EXAM: BP 124/84 (BP Site: Right Arm, BP Position: Sitting, BP Cuff Size: Regular Adult) Pulse 82 Resp16 Wt 69.9 kg (154 lb) BMI 27.63 kg/m General Appearance: Well appearing, alert, in no acute distress, well-hydrated, well nourished.. Musculoskeletal: bilateral knees. No joint pain or effusion. Passive flexion and extension producesno pain, grinding or crepitous. . Health Maintenance List DTAP,TDAP,TD(4 - Td or Tdap) due on 03/30/2022 COVID-19 VACCINE(5 - Moderna series) due on 08/01/2022 INFLUENZA(1) due on 03/26/2023 DIABETES SCREEN due on 12/25/2025 BONE DENSITY Completed ADVANCE DIRECTIVE DISCUSSION Completed DEPRESSION ASSESSMENT Completed SHINGRIX VACCINE Completed PNEUMOCOCCAL: 65+ Completed Data reviewed A/P ASSESSMENT/PLAN: 1. 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 Improved wit PHYSICAL THERAPY. Patient to cont her HEP. Keep WAE 12/2023 or sooner if needed. Carl Rendon MD documented in this encounterTrinity [facility]07-05-[facility]23 History of Present illness Narrative* Keyla Foster, PT - 01/27/2023 9:51 AM EDT Episode Visit Count: 5 Therapist That Will Accept/Oversee The Plan Of Care: Keyla Foster Start of Care Date: 12/30/22 Onset Date: 09/23/22 (several months) Plan of Care Certification Date: 12/30/22 Next Certification Due Date: 03/01/23 Patient Identified by Name and Date of : Yes REHABILITATION AND SPORTS THERAPY PHYSICAL THERAPY DISCONTINUANCE OF CARE PLAN OF CARE UPDATE: Assessment: Cheryl Abarca is discontinued from Physical Therapy services due to goal achievement.. Patient was seen for 5 visits from Start of Care Date: 12/30/22 to 01/27/2023 and treatment included: Therapeutic exercise, Gait training, and Patient/Family/Caregiver Education. Goals for Episode of Care: created on 12/30/22 through 03/01/23 Goals updated on 01/27/2023. [place] in home exercise program. (Met) Patient will decrease pain rating by 2 points to meet minimal clinical important difference for numeric pain rating scale. (Partially Met)-inconsistent Patient will increase active ROM of B knees to 0 deg extension to allow pt to to improve postural alignment, to improve performance of ADLs, and to improve gait mechanics / gait pattern . (Met) Patient will demonstrate increase in B LE strength to 5/5 during manual muscle testing in order to improve function for leisure / recreation skills, prior functional tasks, and sit to stand. (Met) Patient will increase flexibility of hamstrings to 50-60 degrees to improve ability to maintain proper posture, improve mechanics, knee AROM, and decrease pain. (Met) Perform sit <> stand/rising from a chair, stair negotiation and undisturbed sleep without pain. (Partially Met) Normal gait. (Met) Patient Goals: To decrease knee pain. (Met) SUBJECTIVE: Patient Reason for Visit: Pt feels that she is improving overall. She states, "Getting up is easier and less painful". She still has some difficulty with initial stance if has been sitting for prolonged time. Pt notes she is occasionally awakened at night, but it is d/t hip pain (not her knees) and if she changes position she can go right back to sleep. Pain: Pain Pain Level: 5 Pain Location: Knee - Right, Knee - Left Post Treatment Pain Post Treatment Pain Level: 3 Post Treatment Pain Location: Knee - Right, Knee - Left PROMIS Scales Higher is Better 12/29/2022 12/18/2021 Phys Func - Score 45 (within normal limits) 48 (within normal limits) Phys Func - Percentile 31 % 42 % Self-Eff Symptom - Score 35 (Low) 39 (Low) Self-Eff Symptom - Percentile 7 % 14 % T-scores: mean of general population = 50. 5 points is clinically meaningfully difference Percentiles provide an indication of how the patient's score ranks in relation to the general population. Higher percentile rankings indicate better function/quality of life. 50th percentile is the average of the general population and indicates half of respondents had a worse score. OBJECTIVE MEASURES WITH LEVEL OF FUNCTION: LE AROM R Knee Extension: 0 Degrees R Knee Flexion: 125 Degrees L Knee Extension: 0 Degrees L Knee Flexion: 123 Degrees LE Flexibility R Hamstring Flexibility: SLR to 60 deg L Hamstring Flexibility: SLR to 60 deg LE Strength R Hip Flexion (L2): 5/5 R Hip ABduction: 5/5 R Hip ADduction: 5/5 R Knee Extension (L3): 5/5 R Knee Flexion: 5/5 R Ankle Dorsiflexion (L4): 5/5 R Ankle Plantar Flexion: 5/5 L Hip Flexion (L2): 5/5 L Hip ABduction: 5/5 L Hip ADduction: 5/5 L Knee Extension (L3): 5/5 L Knee Flexion: 5/5 L Ankle Dorsiflexion (L4): 5/5 L Ankle Plantar Flexion: 5/5 Gait Gait Observation: Pt ambulates indpendently with no assistive device. She demosntrates near improved, near normal gait pattern. TREATMENT: Therapeutic Exercise: 1: Scifit Seated Stepper x 5 minutes, (Discussed current progress and continued goals during this time.) 2: Heel slides 2x10 B 3: quad sets 5 sec holds 2x 10 B 4: Hooklying PPT 2x10 5: Hooklying PPT with alt marching 2x10 6: Supine figure 4 stretch 3x30 seconds R 7: passive R hamstring stretch 3 x 30 sec each 8: LAQ 2x10 B 9: HS curls with pink theraband 2x10 B Skilled Intervention: Patient was educated in proper exercise technique and purpose for exercises. Reviewed and educated patient on additions/changes for home exercise program as above (*). Skilled judgment was provided in selection of appropriate interventions. Provided written instruction and pink resistive band for home exercise program to facilitate properperformance and compliance. Correct performance of therapeutic exercises was facilitated with verbal and visual cuing. Additional time necessary for objective measurements and reassessment due to progress update/discharge. Patient education as noted. Billing Therapeutic Exercise Treatment Minutes: 45 Total Treatment Time Minutes (timed/untimed): 45 Keyla Foster PT documented in this encounterTrinity Health [facility]06-28-2023 History of Present illness Narrative* Keyla Foster PT - 01/20/2023 1:58 PM EDT Episode Visit Count: 4 Therapist That Will Accept/Oversee The Plan Of Care: Keyla Foster Start of Care Date: 12/30/22 Onset Date: 09/23/22 (several months) Plan of Care Certification Date: 12/30/22 Next Certification Due Date: 03/01/23 Patient Identified by Name and Date of : Yes REHABILITATION AND SPORTS THERAPY PHYSICAL THERAPY TREATMENT NOTE ASSESSMENT: Cheryl Abarca tolerated the session with fatigue and no issues. She demonstrated improvements in B knee flexion ROM without pain. The patient will continue to benefit from ongoing skilled physical therapy to progress toward set goals. PLAN FOR NEXT VISIT: Consider HS curls with t-band for HEP. SUBJECTIVE: Patient Reason for Visit: Pt reports that her knees are feeling better. Has been helping with wider DARRYN upon standing, not as intense pain. Pt has found that if she does exercises prior to bed she is ble to sleep better. Pt states that she goes up and down steps sideways at home. Pain: Pain Pain Level: 0 Pain Location: Knee - Right, Knee - Left Post Treatment Pain Post Treatment Pain Level: 0 Post Treatment Pain Location: Knee - Right, Knee - Left OBJECTIVE MEASURES WITH LEVEL OF FUNCTION: LE AROM R Knee Extension: 0 Degrees R Knee Flexion: 125 Degrees (supine, no pain) L Knee Extension: -2 Degrees L Knee Flexion: 125 Degrees (supine, no pain) TREATMENT: Therapeutic Exercise: 1: Scifit Seated Stepper x 5 minutes, (Discussed HEP and pt provided update on her condition.) 2: Heel slides 2x10 B 3: quad sets 5 sec holds 2x 10 B 4: passive R hamstring stretch 5 x 30 sec 5: Hooklying PPT 2x10 6: Hooklying PPT with alt marching 2x10 7: Supine firgure 4 stretch 3x30 seconds R 8: LAQ 2x10 B 9: HS curls with pink theraband 2x10 B Skilled Intervention: Patient was educated in proper exercise technique and purpose for exercises. Skilled judgment was provided in selection of appropriate interventions. Correct performance of therapeutic exercises was facilitated with verbal and visual cuing. Gait Trainin: Pt ascended 4 steps x2 with 1 HR with reciprocal patter. Pt descended 4 steps with B HR with reciprocal pattern, but experienced pain in R knee. Education and demonstration given on completing descending of stairs with non-reciprocal pattern leading with RLE first. Pt then demonstrated descending 4 steps with non-reciprocal pattern with 1 HR. Skilled Intervention: Patient was provided stand by assist during pre-gait/gait training to preventfalls and insure safety. Education provided to patient regarding the proper sequence for stair negotiation. Billing Therapeutic Exercise Treatment Minutes: 37 Gait Training Treatment Minutes: 8 Total Treatment Time Minutes (timed/untimed): 45 Dania Doherty, INFORMATION ASSURANCE OFFICER Keyla Foster, PT documented in this encounterTr[facility] History of Present illness Narrative* Opal Booth, PT - 01/13/2023 2:48 PM EDT Episode Visit Count: 3 Therapist That Will Accept/Oversee The Plan Of Care: Keyla Foster Start of Care Date: 12/30/22 Onset Date: 09/23/22 (several months) Plan of Care Certification Date: 12/30/22 Next Certification Due Date: 03/01/23 Patient Identified by Name and Date of : Yes REHABILITATION AND SPORTS THERAPY PHYSICAL THERAPY TREATMENT NOTE ASSESSMENT: Cheryl Abarca tolerated the session with fatigue and expected muscle soreness. She demonstrated improvements in pain with STS with wider base of support and knee extension bilaterally. The patient will continue to benefit from ongoing skilled physical therapy to progress toward set goals. PLAN FOR NEXT VISIT: Consider adding more hooklying exercises, continue with B knee ROM and strength. SUBJECTIVE: Patient Reason for Visit: Pt reports that her knees are okay until having to stand up from chair. Pain: Pain Pain Level: 0 (increases to 7-8/10 with standing up.) Pain Location: Knee - Right, Knee - Left Description: Sharp Frequency: Intermittent Post Treatment Pain Post Treatment Pain Level: No Change Post Treatment Pain Location: Knee - Right, Knee - Left OBJECTIVE MEASURES WITH LEVEL OF FUNCTION: LE AROM R Knee Extension: 0 Degrees L Knee Extension: 0 Degrees TREATMENT: Therapeutic Exercise: 1: STS 1x3 with wider DARRYN (decreased pain with standing) 2: heel slides 3 x 10 each leg 3: SLR 3 x 10 each leg 4: quad sets 5 sec holds x 10 B 5: passive R hamstring stretch 5 x 30 sec 6: hooklying iso abs 5 sec holds x 10 7: Hooklying PPT 1x10 8: *Supine firgure 4 stretch 3x30 seconds R 9: * Seated LAQ 1x5 BLE (pt to work her way up to 2 sets of 10, 2 times per day for HEP) Skilled Intervention: Patient was educated in proper exercise technique and purpose for exercises. Reviewed and educated patient on additions/changes for home exercise program as above (*). Skilled judgment was provided in selection of appropriate interventions. Provided written instruction for home exercise program to facilitate proper performance and compliance. Correct performance of therapeutic exercises was facilitated with verbal and visual cuing. Billing Therapeutic Exercise Treatment Minutes: 45 Total Treatment Time Minutes (timed/untimed): 45 Dania Doherty, INFORMATION ASSURANCE OFFICER Opal Booth PT documented in this encounterTr[facility]06-19-[facility]23 Miscellaneous Notes* Telephone Encounter - Carl Rendon MD - 01/11/2023 5:13 PM EDT Order for gastro (with [facility]) consult placed. * Telephone Encounter - Patricia Camara RN - 01/11/2023 4:58 PM EDT Pt called and is notified of providers message and instructions. Pt voices understanding. Please call Pt once orders are in and help schedule. Patricia Camara, RN * Telephone Encounter - Carl Rendon MD - 01/11/2023 4:17 PM EDT Let patient know the next step would be to have her see gastro for possible colonoscopy. * Telephone Encounter - Ruth Blake LPN - 01/08/2023 11:48 AM EDT Pt returns call. Advised of results. Pt reports she just has diarrhea occasionally not as often as she was. States has only had it twice a week since ov. Does have an appointment 02/10 with pcp. Ruth Blake LPN * Telephone Encounter - Ruth Blake LPN - 01/08/2023 11:39 AM EDT Left message for pt to contact office. Ruth Blake LPN * Telephone Encounter - Carl Rendon MD - 01/08/2023 11:00 AM EDT Let patient know stool studies were all normal. See if still having the diarrhea. documented in this encounterTr[facility]06[facility] History of Present illness Narrative* Keyla Foster, PT - 01/08/2023 8:02 AM EDT Episode Visit Count: 2 Therapist That Will Accept/Oversee The Plan Of Care: Keyla Foster Start of Care Date: 12/30/22 Onset Date: 09/23/22 (several months) Plan of Care Certification Date: 12/30/22 Next Certification Due Date: 03/01/23 Patient Identified by Name and Date of : Yes REHABILITATION AND SPORTS THERAPY PHYSICAL THERAPY TREATMENT NOTE ASSESSMENT: Cheryl Abarca tolerated the session with decreased symptoms. She demonstrated improvements in B knee extension. The patient will continue to benefit from ongoing skilled physical therapy to progress toward set goals. PLAN FOR NEXT VISIT: Continue with knee AROM, strengthening, core strengthening exercises. SUBJECTIVE: Patient Reason for Visit: Pt states she feels her knee is, "a little better". She states when she stood up to walk back to [facility], her knee did not hurt as much. Pain: Pain Pain Level: 6 (5-6/10) Pain Location: Knee - Right, Knee - Left Description: Sharp Frequency: Intermittent Post Treatment Pain Post Treatment Pain Level: 4 (4 L knee, 0 R knee (but feels tender)) Post Treatment Pain Location: Knee - Right, Knee - Left OBJECTIVE MEASURES WITH LEVEL OF FUNCTION: LE AROM R Knee Extension: -2 Degrees L Knee Extension: -1 Degrees Pt noted slight pain at kneecaps during first minute or so of seated cycling, but this resolved andpt reported no pain at end of this exercise. TREATMENT: Therapeutic Exercise: 1: heel slides 3 x 10 each leg 2: SLR 2 x 10 each leg 3: sidelying hip abd 2 x 10 each leg 4: *quad sets 5 sec holds x 10 5: recumbant stationary bike seat 7, pedals 3 x 5:30 min 6: *hooklying iso abs 5 sec holds x 10 7: passive R hamstring stretch 5 x 30 sec Skilled Intervention: Patient was educated in proper exercise technique and purpose for exercises. Reviewed and educated patient on additions/changes for home exercise program as above (*). Skilled judgment was provided in selection of appropriate interventions. Provided written instruction for home exercise program to facilitate proper performance and compliance. Correct performance of therapeutic exercises was facilitated with verbal and visual cuing. Patient education as noted. Billing Therapeutic Exercise Treatment Minutes: 42 Total Treatment Time Minutes (timed/untimed): 42 Keyla Foster PT documented in this encounterTr[facility]06[facility]07[facility] History of Present illness Narrative* Keyla Foster PT - 12/30/2022 1:35 PM EDT Episode Visit Count: 1 Therapist That Will Accept/Oversee The Plan Of Care: Altonsamir Keyla Start of Care Date: 12/30/22 Onset Date: 09/23/22 (several months) Plan of Care Certification Date: 12/30/22 Next Certification Due Date: 03/01/23 Patient Identified by Name and Date of : Yes REHABILITATION AND SPORTS THERAPY PHYSICAL THERAPY EVALUATION PLAN OF CARE: Assessment: Cheryl Abarca presents with diagnosis of acute aping of both knees that interferes with rising from a chair, stair negotiation, sleeping . She presents with impairments in flexibility, overall function, range of motion, and strength. PROMIS (Patient-Reported Outcomes Measurement Information System) scores were reviewed and physical function domain and self efficacy domain identified as within normal limits. Prognosis for therapy is Excellent due to: current objective clinical presentation, good overall health status, good support system/ coping skills . She will benefit from skilled therapy services to meet the goals established for this plan of care as noted below. Goals for Episode of Care: created on 12/30/22 through 03/01/23 [place] in home exercise program. Patient will decrease pain rating by 2 points to meet minimal clinical important difference for numeric pain rating scale. Patient will increase active ROM of B knees to 0 deg extension to allow pt to to improve postural alignment, to improve performance of ADLs, and to improve gait mechanics / gait pattern . Patient will demonstrate increase in B LE strength to 5/5 during manual muscle testing in order to improve function for leisure / recreation skills, prior functional tasks, and sit to stand. Patient will increase flexibility of hamstrings to 50-60 degrees to improve ability to maintain proper posture, improve mechanics, knee AROM, and decrease pain. Perform sit <> stand/rising from a chair, stair negotiation and undisturbed sleep without pain. Normal gait. Patient Goals: To decrease knee pain. Planned Interventions, Frequency, and Duration: Current Frequency: 1x/week Duration: 8 weeks Total Number of Visits Planned: 8 Planned Treatment Interventions: Therapeutic exercise (98335), Manual therapy (64630), Gait Training ([id number]), Patient/Family/Caregiver Education PLAN FOR NEXT VISIT: Assess reponse to HEP. Progress exercises for knee strength and ROM. May add recumbant stationary bike and/or core strengthening. Patient demonstrates good understanding of plan of care and treatment. The above goals and plan of care were discussed and agreed upon by patient/family. SUBJECTIVE: Cheryl Abarca is a 87 year old female seen today for Pt reports most knee pain getting up and down. She denies any pain when walking. She also notes tenderness at R posterior hip joint. Patient Goals: To decrease knee pain. Functional Limitations: rising from a chair, stair negotiation, sleeping Prior Level of Function: Independent without limitations Relevant History Recreation / Current Exercise: Pt plays 9 holes of golf twice a week. Sometimes she takes a Tylenolprior to playing, but is not limited. Home Environment Patient Lives With: Spouse Home Type: [place] (stairs to basement, but does not need to use them) Intake Information: Prescription present Previous Treatment: None Pain: Pain Pain Level: 0 (when getting u pand down -02/01) Pain Location: Knee - Right, Knee - Left (patellar region) Description: Sharp Frequency: Intermittent PROMIS Scales Higher is Better 12/29/2022 12/18/2021 Phys Func - Score 45 (within normal limits) 48 (within normal limits) Phys Func - Percentile 31 % 42 % Self-Eff Symptom - Score 35 (Low) 39 (Low) Self-Eff Symptom - Percentile 7 % 14 % T-scores: mean of general population = 50. 5 points is clinically meaningfully difference Percentiles provide an indication of how the patient's score ranks in relation to the general population. Higher percentile rankings indicate better function/quality of life. 50th percentile is the average of the general population and indicates half of respondents had a worse score. OBJECTIVE MEASURES WITH LEVEL OF FUNCTION: Knee Observations R Knee Palpation Tenderness: (medial and superior pat-fem jt) L Knee Palpation Tenderness: (lateral and superior pat-fem jt) LE AROM R Knee Extension: -4 Degrees R Knee Flexion: 110 Degrees (end range pain (in long sit)) R Ankle Dorsiflexion: 10 Degrees L Knee Extension: -6 Degrees L Knee Flexion: 118 Degrees (end range pain (in long sit)) L Ankle Dorsiflexion: 7 Degrees LE Flexibility Flexibility: Hamstring Flexibility R Hamstring Flexibility: SLR to 45 deg, pulling around the knee (post, lat) L Hamstring Flexibility: SLR to 50 deg (pulling back of leg) LE Strength R Hip Flexion (L2): 5/5 R Hip ABduction: 4+/5 R Hip ADduction: 5/5 R Knee Extension (L3): 4+/5 (pain) R Knee Flexion: 5/5 R Ankle Dorsiflexion (L4): 5/5 R Ankle Plantar Flexion: 5/5 L Hip Flexion (L2): 5/5 L Hip ABduction: 4+/5 L Hip ADduction: 5/5 L Knee Extension (L3): 4+/5 L Knee Flexion: 5/5 L Ankle Dorsiflexion (L4): 5/5 L Ankle Plantar Flexion: 5/5 Gait Gait Observation: Pt ambulates independently with no assistive device. Education: Education Learning Preferences: Demonstration, Explanation Barriers: None Learning/educational needs: Home exercise program, Plan of Care Education Provided: Yes, see treatment interventions for education provided Education Provided To: Patient Education Mode/Type: Demonstration, Explanation/Discussion, Literature/Printed Materials, Performance Response to Education/Teach Back: States/Identifies, Return Demonstration TREATMENT: PT Treatment Interventions: Therapeutic Exercise Evaluation Therapeutic Exercise: 1: *heel slides 3 x 10 each leg 2: *SLR 3 x 5 each leg 3: *sidelying hip abd 3 x 5 each leg Skilled Intervention: Patient was educated in proper exercise technique and purpose for exercises. Skilled judgment was provided in selection of appropriate interventions. Provided written instruction for home exercise program to facilitate proper performance and compliance. Correct performance of therapeutic exercises was facilitated with verbal and visual cuing. Patient education as noted. Billing * Evaluation Low Complexity: 1 Unit Therapeutic Exercise Treatment Minutes: 15 Total Treatment Time Minutes (timed/untimed): 45 Keyla Foster PT documented in this encounterTr[facility]06-[facility]-2023 Miscellaneous Notes* Telephone Encounter - Ruth Blaek LPN - 12/28/2022 11:06 AM EDT Patient notified of results and provider's instructions. Patient verbalizes understanding. Pt occasionally has low back pain but states it is not a new sx. Will contact office if any sx develop Ruth Blake LPN * Telephone Encounter - Dionna Uriarte PA-C - 12/28/2022 10:38 AM EDT Labs are overall normal. Some leuks in urine. Make sure no s/s of uti. If yes, will treat. If no, patient can monitor. Glucose was 105 at time of lab draw. This is her baseline. We will monitor Thanks. Dionna Uriarte PA-C documented in this encounterTr[facility]06-02-[facility] History of Present illness Narrative* Dionna Uriarte PA-C - 12/25/2022 8:24 AM EDT Medicare Yearly Visit Medical B eligibilty date 01/23/2002 Date of last exam 12/15/21 PAST MEDICAL HISTORY Diagnosis Date Adjustment disorder with depressed mood 04/08/2005 Advance [...] COLONOSCOPY FLX DX W/COLLJ SPEC WHEN PFRMD 02/08/13 Colonoscopy COLONOSCOPY W/BIOPSY SINGLE/MULTIPLE 01-02-02 Repeat in EGD 08/15/04 PAST SURGICAL HISTORY OF RIGHT NEEDLE BIOPSY, Breast PAST SURGICAL HISTORY OF 11/2006 MOHS-PRECANCEROUS AREA ON LEFT EYEBROW. PLC BREAST CLIP PERC Left breast TONSILLECTOMY PRIMARY/SECONDARY <AGE 12 Tonsillectomy ALLERGIES: Bactrim Ds [Sulfamethoxazole-Trimethoprim] Medications reviewed: Yes FAMILY HISTORY Problem Relation Age of Onset Prostate Cancer Father Psychiatry Mother Hypertension Mother Breast Cancer Maternal Grandmother Colon Cancer Maternal Grandfather Psychiatry Brother schizophrenic Arthritis Paternal Grandfather Rheumatoid SOCIAL HISTORY: Social History Tobacco Use Smoking status: Some Days Years: 2.00 Types: Cigarettes Last attempt to quit: 01/08/2008 Years since quittin.9 Smokeless tobacco: Never Substance Use Topics Alcohol use: Yes Comment: Occasionally Drug use: No Cheryl likes to exercise by golfing and staying active around her home and garden. She watches her diet for sodium, low fat and low cholesterol most of the time. List of current specialists seen: none End of Live Planning discussed including patients advanced directive wishes: Yes I am willing to follow Cheryl's advanced directives. Depression Screening 05/30/2019 12/15/2021 12/16/2022 12/25/2022 PHQ-2 Score 0 0 0 0 Depression screening tool completed and reviewed. Based on score and interview, patient is already diagnosed with depression. Screening tool discussed with patient, and I recommended no further intervention at this time. Functional Ability/Safety Screen 1. Was the patient's timed Up and Go test unsteady or longer than 30 seconds? No 2. Does the patient need help with the phone, transportation, shopping,preparing meals, housework, laundry, medications or managing money? No 3. Does your home have rugs in the hallway (Y), lack of grab bars in the bathroom (Y), lack of handrails on the stairs or have poor lighting? No Hearing Evaluation: wears hearing aids PHYSICAL EXAM BP 140/96 (BP Site: Right Arm, BP Position: Sitting, BP Cuff Size: Large Adult) Pulse 70 Temp 36.9 C (98.4 F) Resp 16 Ht 159 cm (5' 2.6") Wt 69.9 kg (154 lb) BMI 27.63 kg/m Alert and oriented X 3: YES Body mass index is 27.63 kg/m . Visual acuity: will be seeing Ophthalmology ASSESSMENT/PLAN: 87 year old female The following prevention plan was discussed during the office visit and provided to the patient: See below Dionna Uriarte PA-C Chief Complaint Patient presents with: Medicare Wellness Exam HPI Chreyl Abarca is a 87 year old female who presents here today for extensive exam. Patient with hx of HTN, hyperlipidemia, smoker, depression and those as below. Patient overall doing well. Will be starting Physical Therapy for her knee Past medical history, appointments, medications, allergies reviewed. Previous Medical History PAST MEDICAL HISTORY Diagnosis Date Adjustment disorder with depressed mood 04/08/2005 Advance [...] COLONOSCOPY FLX DX W/COLLJ SPEC WHEN PFRMD 02/08/13 Colonoscopy COLONOSCOPY W/BIOPSY SINGLE/MULTIPLE 01-02-02 Repeat in EGD 08/15/04 PAST SURGICAL HISTORY OF RIGHT NEEDLE BIOPSY, Breast PAST SURGICAL HISTORY OF 11/2006 MOHS-PRECANCEROUS AREA ON LEFT EYEBROW. PLC BREAST [...] on File Prior to Visit Medication Sig simvastatin (ZOCOR) 20 mg tablet Take 1 tablet by mouth daily at bedtime. losartan (COZAAR) 100 mg tablet Take 1 tablet by mouth once daily. venlafaxine ER (EFFEXOR XR) 75 mg 24 hr capsule Take 1 capsule by mouth once daily. amLODIPine (NORVASC) 5 mg tablet Take 1 tablet by mouth once daily. predniSONE (DELTASONE) 10 mg tablet Take 6 tabs by mouth for 3 days then 4 tabs a day for 3 days then 2 tabs a day for 3 days and then 1 tab a day for 3 days. (Patient not taking: Reported on 07/06/2022) No current facility-administered medications on file prior to visit. Social History Social History Tobacco Use Smoking status: Some Days Years: 2.00 Types: Cigarettes Last attempt to quit: 01/08/2008 Years since quittin.9 Smokeless tobacco: Never Substance Use Topics Alcohol use: Yes Comment: Occasionally Drug use: No Review of Symptoms REVIEW OF SYSTEMS GENERAL: No weight loss, malaise or fevers HEENT: No changes in hearing or vision, no nose bleeds or other nasal problems NECK: Negative for lumps, goiter, pain and significant neck swelling RESPIRATORY: Negative for cough, hemoptysis, wheezing, COPD, dyspnea or shortness of breath CARDIOVASCULAR: Negative for chest pain, leg swelling, CHF or palpitations GI: Negative for abdominal discomfort, blood in stools or black stools, change in bowel habit, heart burn, nausea, vomiting : No history of dysuria, frequency or incontinence SIZING MACHINE TENDER: Negative for abnormal vaginal bleeding, abnormal vaginal discharge MUSCULOSKELETAL: current knee pain SKIN: Negative for lesions, rash, and itching PSYCH: Negative for sleep disturbance, mood disorder and recent psychosocial stressors HEMATOLOGY/LYMPHOLOGY: Negative for prolonged bleeding, bruising easily or swollen nodes ENDOCRINE: Negative for cold or heat intolerance, polyuria, polydipsia and goiter NEURO: No history of headaches, syncope, paralysis, seizures or tremors EXAM: BP 140/96 (BP Site: Right Arm, BP Position: Sitting, BP Cuff Size: Large Adult) Pulse 70 Temp 36.9 C (98.4 F) Resp 16 Ht 159 cm (5' 2.6") Wt 69.9 kg (154 lb) BMI 27.63 kg/m BP 150/80 (BP Site: Right Arm, BP Position: Sitting, BP Cuff Size: Large Adult) Pulse 68 Temp 36.9 C (98.4 F) Resp 16 Ht 159 cm (5' 2.6") Wt 69.9 kg (154 lb) BMI 27.63 kg/m General Appearance: Well appearing, alert, in no acute distress, well-hydrated, well nourished.. Skin: Skin color, texture, turgor normal, no suspicious rashes or lesions. Head: Normocephalic, no masses, lesions, tenderness or abnormalities. Eyes: Anicteric sclera. Pupils are equally round and reactive to light. Extraocular movements are intact. . Ears: External ears normal, canals clear, TMs pearly albright. Nose/Sinuses: Nares normal, septum midline, mucosa normal, [...] Good capillary refill. . Peripheral Pulses: Normal. Neurologic: Gait normal. Reflexes normal and symmetric. Sensation grossly intact.. Health Maintenance List DTAP,TDAP,TD(4 - Td or Tdap) due on 03/30/2022 INFLUENZA(Season Ended) due on 03/26/2023 DIABETES SCREEN due on 12/15/2024 BONE DENSITY Completed ADVANCE DIRECTIVE DISCUSSION Completed DEPRESSION ASSESSMENT Completed SHINGRIX VACCINE Completed COVID-19 VACCINE Completed PNEUMOCOCCAL: 65+ Completed Data reviewed N/a ASSESSMENT/PLAN: 1. Medicare annual wellness visit, subsequent - ICD9: V70.0, ICD10: Z00.00 (primary diagnosis) - Counseled on healthy diet and regular exercise - Calcium intake with supplements or by diet of 1000 mg/day for under 50, 1200- 1500 mg/day for 50+ 2. Essential hypertension, benign - ICD9: 401.1, ICD10: I10 Elevated today but previously well controlled Patient has a follow up with PCP in January. Will recheck at that time. Discussed watching salt/diet. - Continue current medications - Recommend home blood pressure monitoring, to bring results to next visit - Encouraged sodium restriction, DASH or Mediterranean diet - Recommend regular aerobic exercise - COMP METABOLIC PANEL 3. Hyperlipidemia, mixed - ICD9: 272.2, ICD10: E78.2 Await labs - Continue current medications - Counseled on healthy diet and regular exercise - LIPID PANEL, NONFASTING - URINALYSIS, WITH MICROSCOPIC 4. Smoker - ICD9: 305.1, ICD10: F17.200 - CBC + DIFF 5. Adjustment disorder with depressed mood - ICD9: 309.0, ICD10: F43.21 stable 6. Sleep apnea, unspecified type - ICD9: 780.57, ICD10: G47.30 No new issues. Follow up as scheduled and in 1 year for wellness. Dionna Uriarte PA-C documented in this encounterTr[facility]05-01-[facility]23 Miscellaneous Notes* Telephone Encounter - Carl Rendon MD - 11/23/2022 11:43 AM EDT The following approved medication requests have been transmitted electronically. Requested Prescriptions Signed Prescriptions Disp Refills simvastatin (ZOCOR) 20 mg tablet 90 tablet 1 Sig: Take 1 tablet by mouth daily at bedtime. Authorizing Provider: CARL RENDON MD * Telephone Encounter - Najma Sanabria MA - 11/23/2022 11:07 AM EDT Patient has been identified by name and date of : Yes Requested Prescriptions Pending Prescriptions Disp Refills simvastatin (ZOCOR) 20 mg tablet 90 tablet 1 Sig: Take 1 tablet by mouth daily at bedtime. RX INSTRUCTIONS: Patient aware RX will be sent to pharmacy. No need to notify patient. Najma Sanabria MA Lizzy 11/2021 Nov 11/2022 Last refill; 11/2021 * Telephone Encounter - Laura Barnett [facility] - 11/23/2022 10:28 AM EDT Patient has been identified by name and date of : Yes Requested Prescriptions Pending Prescriptions Disp Refills simvastatin (ZOCOR) 20 mg tablet 90 tablet 1 Sig: Take 1 tablet by mouth daily at bedtime. RX INSTRUCTIONS: Patient aware RX will be sent to pharmacy. No need to notify patient. Laura Barnett Pss documented in this encounterTr[facility]03-13[facility]23 Miscellaneous Notes* Telephone Encounter - Najma Sanabria MA - 10/05/2022 9:38 AM EDT Patient has been identified by name and date of : Yes Requested Prescriptions Pending Prescriptions Disp Refills losartan (COZAAR) 100 mg tablet 90 tablet 1 Sig: Take 1 tablet by mouth once daily. RX INSTRUCTIONS: Patient aware RX will be sent to pharmacy. No need to notify patient. Najma Sanabria MA Lizzy: 11/2021 Nov: 12/16/2022 Last refill: 11/2022 * Telephone Encounter - Marnie Malone Pss - 10/05/2022 9:30 AM EDT Pharmacy verified in [facility] Patient has been identified by name and date of : Yes Patient aware RX will be sent to pharmacy. No need to notify patient. Patient phones for refill(s): Requested Prescriptions Pending Prescriptions Disp Refills losartan (COZAAR) 100 mg tablet 90 tablet 1 Sig: Take 1 tablet by mouth once daily. Date of last office visit : 12/15/2021 Date of next office visit : Visit date not found Last 2 Encounter Wt Readings: Date: Wt: 07/06/2022 71.2 kg (157 lb) 05/11/2022 71.7 kg (158 lb) Please advise. Marnie Malone Pss documented in this encounterTr[facility]12-12-[facility]22 History of Present illness Narrative* Jono Johnson MD - 07/06/2022 10:38 AM EST Patient presents with: Head Congestion: drainage, productive cough x 1 week HPI: URI symptoms for 10 days. She is leaving for [place] Wednesday. 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 amLODIPine (NORVASC) 5 mg tablet Take 1 tablet by mouth once daily. losartan (COZAAR) 100 mg tablet Take 1 tablet by mouth once daily. simvastatin (ZOCOR) 20 mg tablet Take 1 tablet by mouth daily at bedtime. predniSONE (DELTASONE) 10 mg tablet Take 6 tabs by mouth for 3 days then 4 tabs a day for 3 days then 2 tabs a day for 3 days and then 1 tab a day for 3 days. (Patient not taking: Reported on 07/06/2022) No current facility-administered medications for this visit. ALLERGIES: ALLERGIES Allergen Reactions Bactrim Ds [Sulfame* Rash VITALS: BP 124/80 Pulse 80 Temp 36.8 C (98.2 F) Resp 16 Wt 71.2 kg (157 lb) SpO2 99% BMI 28.72 kg/m PHYSICAL EXAM: GEN: Pleasant, in no acute distress. Complained by her . HEENT: PERRL, EOMI, conjunctiva clear Ears: Hearing aids removed. Canals clear. TMs without erythema, bulge, or effusion Sinuses: non-tender frontal sinus, non-tender maxillary sinuses Throat: moist mucous membranes, no erythema, no exudate Neck: supple, no thyromegaly, no lymphadenopathy HEART: regular rate and rhythm, no murmurs LUNGS: clear to auscultation, no wheezes or crackles, no increased WOB; raspy cough ASSESSMENT/PLAN: 1. Acute cough - ICD9: 786.2, ICD10: R05.1 Viral URI with COPD exacerbation. Discussed continuing supportive care since she is without fever, shortness of breath, or sinus pain. Printed - DOXYCYCLINE MONOHYDRATE 100 MG CAPSULE to fill if productive cough is not improving in the next couple days or symptoms worsen. Jono Johnson MD documented in this encounterTr[facility]12-08-2022 Miscellaneous Notes* Telephone Encounter - Dionna Uriarte PA-C - 07/02/2022 11:52 AM EST The following approved medication requests have been transmitted electronically. Requested Prescriptions Signed Prescriptions Disp Refills venlafaxine ER (EFFEXOR XR) 75 mg 24 hr capsule 90 capsule 4 Sig: Take 1 capsule by mouth once daily. Authorizing Provider: DIONNA URIARTE amLODIPine (NORVASC) 5 mg tablet 90 tablet 4 Sig: Take 1 tablet by mouth once daily. Authorizing Provider: DIONNA URIARTE PA-C * Telephone Encounter - Ruth Blake LPN - 07/02/2022 11:34 AM EST Last refill 12/15/21 Qty: 90 with 1 refill LIZZY 12/15/21 NOV none scheduled Ruth Blake LPN * Telephone Encounter - Soledad Parra Pss - 07/02/2022 11:12 AM EST Patient has been identified by name and date of : Yes Last office visit in this department: 12/15/2021 RX INSTRUCTIONS: Patient aware RX will be sent to pharmacy. No need to notify patient. Patient phones requesting refills as follows: Requested Prescriptions Pending Prescriptions Disp Refills venlafaxine ER (EFFEXOR XR) 75 mg 24 hr capsule 90 capsule 1 Sig: Take 1 capsule by mouth once daily. amLODIPine (NORVASC) 5 mg tablet 90 tablet 1 Sig: Take 1 tablet by mouth once daily. Please review and advise. Soledad Parra Pss documented in this encounterTr[facility]10-17-2022 Nurse Note* Rosario Valle MA - 05/11/2022 4:44 PM EDT BP 138/64 Rosario Valle MA documented in this encounterTrinity [facility]06-10-2022 History of Present illness Narrative* Con Paiz PT - 01/02/2022 11:35 AM EDT Episode Visit Count: 2 Therapist That Will Oversee The Plan Of Care: Con Paiz Start of Care Date: 12/19/21 Onset Date: 11/21/21 Plan of Care Certification Date: 12/19/21 Next Certification Due Date: 01/23/22 Patient Identified by Name and Date of : Yes REHABILITATION AND SPORTS THERAPY PHYSICAL THERAPY DISCONTINUANCE OF CARE PLAN OF CARE UPDATE: Assessment: Cheryl Abarca is discontinued from Physical Therapy services due to maximal benefit.. Patient was seen for 2 visits from Start of Care Date: 12/19/21 to 01/02/2022 and treatment included: Therapeutic exercise. Goals for Episode of Care: created on 12/19/21 through Pt will report no hip pain with turning over in bed - MET Pt will report no pain with therapeutic exercises - MET Pt will demo RUE strength of 5/5 via MMT without pain for ease of recreational activities - Not met Patient Goals: To relieve the pain SUBJECTIVE: Patient Reason for Visit: Pt states she is feeling much better. Pt could tell the exercises hit the spots. Pt states that she did the exercises half of what was recommended and they hit all the right spots. Pt states she feels good about today being the only needed session and then be done. Functional Limitations: nothing Pain: Pain Pain Level: 0 Pain Location: Scapula - Right Additional Pain Information : Location 2 Pain Level 2: 0 Pain Location 2: Hip - Right Post Treatment Pain Post Treatment Pain Level: No Change Post Treatment Pain Location: Shoulder - Right Post Treatment Pain Score 2: No Change Post Treatment Pain Location 2: Hip - Right PROMIS Scales Higher is Better 03/09/2020 12/18/2021 12/19/2021 Phys Func - Score - 48 (within normal limits) - Phys Func - Percentile - 42 % - Social Roles - Score - 39 (moderate dysfunction) - Social Role - Percentile - 14 % - GH Physical - Score 34.9 - 42.3 (Good) GH Physical - Percentile 7 % - 22 % GH Mental - Score 45.8 - 50.8 (Very Good) GH Mental - Percentile 34 % - 53 % Self-Eff Symptom - Score - 39 (Low) - Self-Eff Symptom - Percentile - 14 % - T-scores: mean of general population = 50. 5 points is clinically meaningfully difference Percentiles provide an indication of how the patient's score ranks in relation to the general population. Higher percentile rankings indicate better function/quality of life. 50th percentile is the average of the general population and indicates half of respondents had a worse score. Lower is Better 12/18/2021 Fatigue - Score 55 (within normal limits) Fatigue - Percentile 31 % T-scores: mean of general population = 50. 5 points is clinically meaningfully difference Percentiles provide an indication of how the patient's score ranks in relation to the general population. Higher percentile rankings indicate better function/quality of life. 50th percentile is the average of the general population and indicates half of respondents had a worse score. OBJECTIVE MEASURES WITH LEVEL OF FUNCTION: Cervical Spine ROM Cervical ROM : Limitation AROM Cervical Flexion AROM: Normal Cervical Extension AROM: Normal Cervical Side-Bend Right AROM: Minimal limitation Cervical Side-Bend Left AROM: Minimal limitation Cervical Rotation Right AROM: Normal Cervical Rotation Left AROM: Minimal limitation;Peripheralizing UE AROM R UE AROM: WNL L UE AROM: WNL UE and Cervical Strength R Shoulder Flexion: 4+/5 R Shoulder Internal Rotation: 5/5 R Shoulder External Rotation: 4+/5 TREATMENT: Therapeutic Exercise: 1: All objective measures taken this session 2: Discussed HEP regarding standing shoulder abd and proper psotiioning of the arm and to limit AROM to shoulder height Skilled Intervention: Patient was educated in proper exercise technique and purpose for exercises. Correct performance of therapeutic exercises was facilitated with verbal and visual cuing. Billing Therapeutic Exercise Treatment Minutes: 14 Total Treatment Time Minutes (timed/untimed): 14 Con Paiz PT documented in this encounterTrinity [facility]05-27-2022 History of Present illness Narrative* Con Paiz PT - 12/19/2021 10:26 AM EDT Episode Visit Count: 1 Therapist That Will Oversee The Plan Of Care: Con Paiz Start of Care Date: 12/19/21 Onset Date: 11/21/21 Plan of Care Certification Date: 12/19/21 Next Certification Due Date: 01/23/22 Patient Identified by Name and Date of : Yes REHABILITATION AND SPORTS THERAPY PHYSICAL THERAPY EVALUATION PLAN OF CARE: Assessment: Cheryl Abarca presents with chief complaint of R shoulder and hip pain that interferes with recreational activities . She presents with impairments in ADL's, overall function and strength . PROMIS (Patient-Reported Outcomes Measurement Information System) scores were reviewed and social roles domain identified as a rehabilitation concern. Prognosis for therapy is Good due to: current objective clinical presentation . Pt demo's positive Spurling's for pain of R shoulder blade, positive empty can test R shoulder, and a positive supine Piriformis test on the R. She will benefit from skilled therapy services to meet the goals established for this plan of care as noted below. Goals for Episode of Care: created on 12/19/21 through 02/13/22 Pt will report no hip pain with turning over in bed Pt will report no pain with therapeutic exercises Pt will demo RUE strength of 5/5 via MMT without pain for ease of recreational activities Patient Goals: To relieve the pain Planned Interventions, Frequency, and Duration: Current Frequency: 1x every other week Duration: 4 weeks Total Number of Visits Planned: 2 Planned Treatment Interventions: Therapeutic exercise (69020);Neuromuscular re- education (56255);Manual therapy (58550);Self-shelter management (86959);Patient/Family/Caregiver Education PLAN FOR NEXT VISIT: Assess reaction to HEP. Progress strengthening of the R RTC as tolerated. Assess L-spine with segmental testing. Patient demonstrates good understanding of plan of care and treatment. The above goals and plan of care were discussed and agreed upon by patient/family. SUBJECTIVE: Cheryl Abarca is a 86 year old female seen today for R shoulder and R hip pain. Pain in the scapular started 4 weeks ago with no injury being the culprit. R hip pain wrapping around the hip has been there for some time but its the pain in the lateral and posterior portion of the hipthat is the issue and it hurts when turning over in bed. Coughing makes the shoulder blade pain worse. Patient Goals: To relieve the pain Functional Limitations: recreational activities Prior Level of Function: Independent without limitations Relevant History Preferred Language: Somali Employment: Retired Recreation / Current Exercise: Golf Intake Information: Prescription present Previous Treatment: (Prednisone) Falls Interview: No positive findings with falls interview Pain: Pain Pain Level: 7 (when it was at its worst) Pain Location: Scapula - Right Description: Sharp Additional Pain Information : Location 2 Pain Level 2: 7 (when it was at its worst) Pain Location 2: Hip - Right Description 2: Sharp Post Treatment Pain Post Treatment Pain Level: (Not rated) Post Treatment Pain Location: Shoulder - Right Post Treatment Pain Location 2: Hip - Right Post Treatment Pain Description 2: (Not rated) PROMIS Scales Higher is Better 03/09/2020 12/18/2021 12/19/2021 Phys Func - Score - 48 (within normal limits) - Phys Func - Percentile - 42 % - Social Roles - Score - 39 (moderate dysfunction) - Social Role - Percentile - 14 % - GH Physical - Score 34.9 - 42.3 (Good) GH Physical - Percentile 7 % - 22 % GH Mental - Score 45.8 - 50.8 (Very Good) GH Mental - Percentile 34 % - 53 % Self-Eff Symptom - Score - 39 (Low) - Self-Eff Symptom - Percentile - 14 % - T-scores: mean of general population = 50. 5 points is clinically meaningfully difference Percentiles provide an indication of how the patient's score ranks in relation to the general population. Higher percentile rankings indicate better function/quality of life. 50th percentile is the average of the general population and indicates half of respondents had a worse score. Lower is Better 12/18/2021 Fatigue - Score 55 (within normal limits) Fatigue - Percentile 31 % T-scores: mean of general population = 50. 5 points is clinically meaningfully difference Percentiles provide an indication of how the patient's score ranks in relation to the general population. Higher percentile rankings indicate better function/quality of life. 50th percentile is the average of the general population and indicates half of respondents had a worse score. OBJECTIVE MEASURES WITH LEVEL OF FUNCTION: Posture / Alignment Posture: Good Shoulder Observations R Shoulder Palpation Tenderness: (Levator scapulae) Hip Observations R Hip Palpation Tenderness: Piriformis Cervical Spine ROM Cervical ROM : Limitation AROM Cervical Flexion AROM: Normal;Increased pain Cervical Extension AROM: Normal Cervical Side-Bend Right AROM: Minimal limitation Cervical Side-Bend Left AROM: Minimal limitation Cervical Rotation Right AROM: Normal Cervical Rotation Left AROM: Minimal limitation;Peripheralizing UE AROM R UE AROM: WNL L UE AROM: WNL LE AROM R LE AROM: WNL L LE AROM: WNL UE and Cervical Strength Strength Tested: Shoulder All R Shoulder Flexion: 4+/5 (Painful) R Shoulder Internal Rotation: 5/5 R Shoulder External Rotation: 4+/5 LE Strength R Hip Flexion (L2): 5/5 R Hip ABduction: 4+/5 R Hip External Rotation: 5/5 R Knee Extension (L3): 5/5 R Ankle Dorsiflexion (L4): 5/5 Education: Education Learning Preferences: Demonstration;Explanation;Performance;Printed Materials Barriers: None Learning/educational needs: Home exercise program;Plan of Care Education Provided: Yes, see treatment interventions for education provided Education Provided To: Patient Education Mode/Type: Demonstration;Explanation/Discussion;Literature/Printed Materials;Performance Response to Education/Teach Back: States/Identifies;Return Demonstration TREATMENT: PT Treatment Interventions: Therapeutic Exercise Evaluation Therapeutic Exercise: 1: Discussed therapy goals, exam findings, purpose of the HEP and a handout was provided. Discussedthe importance of not stretching into pain and not increasing pain with any strengthening exercises. 2: Standing shoulder abd OTB (modified ROM) 2 x 10 reps 3: Supine figure 4 piriformis stretch 2 x 30 seconds 4: L lateral side flexion (cervical) x 5 reps Skilled Intervention: Patient was educated in proper exercise technique and purpose for exercises. Skilled judgment was provided in selection of appropriate interventions. Provided written instruction for home exercise program to facilitate proper performance and compliance. Correct performance of therapeutic exercises was facilitated with verbal and visual cuing. Billing * Evaluation Moderate Complexity: 1 Unit Therapeutic Exercise Treatment Minutes: 29 Total Treatment Time Minutes (timed/untimed): 50 Con Paiz PT documented in this encounterTrinity [facility]05-24-2022 Miscellaneous Notes* Telephone Encounter - Patricia Camara RN - 12/16/2021 4:15 PM EDT Pt called and is notified of providers results. Pt voices understanding. Patricia Camara RN * Telephone Encounter - Ruth Blake LPN - 12/16/2021 1:40 PM EDT Left message for pt to contact office. Ruth Blake LPN * Telephone Encounter - Carl Rendon MD - 12/16/2021 1:19 PM EDT Let patient know her recent labs and urine test were ok. documented in this encounterTrinity Health [facility]05-23-2022 History of Present illness Narrative* Carl Rendon MD - 12/15/2021 2:08 PM EDT Welcome To Medicare Visit Medical B eligibility date 01/23/2002 Date of last exam NA PAST MEDICAL HISTORY Diagnosis Date Adjustment disorder with depressed mood 04/08/2005 Advance [...] () Major depressive disorder, single episode, unspecified Sleep apnea 06/13/2013 mild sleep apnea. 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 PLC BREAST CLIP PERC Left breast TONSILLECTOMY PRIMARY/SECONDARY <AGE 14 Tonsillectomy Bactrim Ds [Sulfamethoxazole-Trimethoprim] Medications reviewed: Yes FAMILY HISTORY Problem Relation Age of Onset Prostate Cancer Father Psychiatry Mother Hypertension Mother Breast Cancer Maternal Grandmother Colon Cancer Maternal Grandfather Psychiatry Brother schizophrenic Arthritis Paternal Grandfather Rheumatoid SOCIAL HISTORY: Social History Tobacco Use Smoking status: Current Some Day Smoker Years: 2.00 Last attempt to quit: 01/08/2008 Years since quittin.9 Smokeless tobacco: Never Used Substance Use Topics Alcohol use: Yes Comment: Occasionally Drug use: No Cheryl denies regular aerobic exercise. She watches her diet for sodium, low fat and low cholesterolsome of the time. List of current specialists seen: none End of Live Planning discussed including patients advanced directive wishes: Yes I am willing to follow Cheryl's advanced directives. PHQ-2 / Depression screen She in the past two weeks Depression Screening 06/04/2016 05/18/2018 05/30/2019 12/15/2021 PHQ-2 Score 0 0 0 0 Depression screening tool completed and reviewed. Based on score and interview, patient is not at risk for depression. Screening tool discussed with patient, and I recommended no further interventionat this time. . Functional Ability/Safety Screen 1. Was the patient's timed Up and Go test unsteady or longer than 30 seconds? No 2. Does the patient need help with the phone, transportation, shopping,preparing meals, housework, laundry, medications or managing money? No 3. Does your home have rugs in the hallway, lack of grab bars in the bathroom(Y), lack of handrailson the stairs or have poor lighting? No Hearing Evaluation: normal PHYSICAL EXAM BP 136/80 (BP Site: Left Arm, BP Position: Sitting, BP Cuff Size: Regular Adult) Pulse (!) 48 Resp 16 Ht 157.5 cm (5' 2") Wt 70.8 kg (156 lb) BMI 28.53 kg/m Alert and oriented X 3: YES Body mass index is 28.53 kg/m . Visual acuity: seeing optho See below ASSESSMENT/PLAN: 86 year old female The following prevention plan was discussed during the office visit and provided to the patient: See below Carl Rendon MD Chief Complaint Patient presents with: Medicare Wellness Exam HPI Cheryl Abarca is a 86 year old female who presents here today for Medicare Annual Visit. Patient with Hx of Hyperlipidemia, Adjustment disorder, HTN, Smoker, vasomotor rhinitis as well as those reviewed and addressed below and in ROS. Continues to smoke a pipe on occasion. Concern: Right shoulder/hip pain x 3 weeks. Past medical history, appointments, medications, allergies reviewed. Previous Medical History PAST MEDICAL HISTORY Diagnosis Date Adjustment disorder with depressed mood 04/08/2005 Carpal tunnel syndrome, bilateral 03/14/2020 Cervical radiculopathy 03/14/2020 Chronic bronchitis (HCC) 05/31/2014 DDD (degenerative disc disease), cervical 03/14/2020 Diverticulitis of colon (without mention of hemorrhage)(562.11) Essential hypertension, benign 01/06/2008 Hyperlipidemia, mixed 03/30/2012 Internal hemorrhoids with other complication Major depressive disorder, single episode, unspecified Sleep apnea 06/13/2013 mild sleep apnea. 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 PLC BREAST CLIP PERC Left breast REMOVAL ADENOIDS,PRIMARY,<12 Y/O Adenoidectomy REMOVAL OF TONSILS,<12 Y/O Tonsillectomy Family History FAMILY HISTORY Problem Relation [...] mouth once daily. venlafaxine ER (EFFEXOR XR) 75 mg 24 hr capsule Take 1 capsule by mouth once daily. simvastatin (ZOCOR) 20 mg tablet Take 1 tablet by mouth daily at bedtime. amLODIPine (NORVASC) 5 mg tablet Take 1 tablet by mouth once daily. No current facility-administered medications on file prior to visit. Social History Social History Tobacco Use Smoking status: Current Some Day Smoker Years: 2.00 Last attempt to quit: 01/08/2008 Years since quittin.9 Smokeless tobacco: Never Used Substance Use Topics Alcohol use: Yes Comment: Occasionally Drug use: No Review of Symptoms REVIEW OF SYSTEMS GENERAL: No weight loss, malaise or fevers HEENT: Negative for frequent or significant headaches, No changes in hearing or vision, no nose bleeds or other nasal problems. So far allergies have been doing ok. NECK: Negative for lumps, goiter, pain and significant neck swelling RESPIRATORY: Negative for cough, hemoptysis, wheezing, COPD, dyspnea or shortness of breath CARDIOVASCULAR: Negative for chest pain, leg swelling, hypertension, CHF or palpitations GI: No nausea, vomiting, or diarrhea, No heartburn or reflux symptoms and no. blood : No history of dysuria, blood MUSCULOSKELETAL: has been having some pain in the right hip and Rt shoulder blade for about 3 weeks. The shoulder blade hurts if bends her neck or coughs. The right hip huts when she first gets into bed, if she tries to turn or lay on it. SKIN: Negative for lesions, rash, and itching PSYCH: Negative for sleep disturbance, mood disorder and recent psychosocial stressors HEMATOLOGY/LYMPHOLOGY: Negative for prolonged bleeding, bruising easily or swollen nodes ENDOCRINE: Negative for cold or heat intolerance, polyuria, polydipsia and goiter NEURO: No history of headaches, syncope, paralysis, seizures or tremors EXAM: BP 136/80 (BP Site: Left Arm, BP Position: Sitting, BP Cuff Size: Regular Adult) Pulse (!) 48 Resp 16 Ht 157.5 cm (5' 2") Wt 70.8 kg (156 lb) BMI 28.53 kg/m Last 5 Encounter Wt Readings: Date: Wt: 12/15/2021 70.8 kg (156 lb) 04/28/2021 71.7 kg (158 lb) 03/14/2020 68.9 kg (152 lb) 05/30/2019 68.9 kg (152 lb) 02/09/2019 67.4 kg (148 lb 9.6 oz) General Appearance: Well appearing, alert, in no acute distress, well-hydrated, well nourished. andOverweight. Skin: Skin color, texture, turgor normal, no suspicious rashes or lesions. Head: Normocephalic, no masses, lesions, tenderness or abnormalities. Eyes: Anicteric sclera. Pupils are equally round and reactive to light. Extraocular movements are intact. . Ears: External ears, TM's normal, canals clear. Neck: Supple, no adenopathy; thyroid symmetric, normal size, no bruits. Lungs: Lungs clear to auscultation. No wheezing, rhonchi, rales.. Heart: RRR without murmur, gallop, or rubs. No ectopy. Abdomen: Normal abdominal exam, Abdomen soft, non-tender. Bowel sounds normal. No masses, organomegaly. Extremities: No deformities, edema, skin discoloration, clubbing or cyanosis. Musculoskeletal: Muscular strength intact. There is some pain to palpation in the right shoulder blade over the supraspinatus and infraspinatus muscles. This area is tender with neck flexion, and with forward flexion and abduction of the right shoulder. The right hip: is tender to palpation over the greater trochanter and in this area with abduction against resistance of the hip. Peripheral Pulses: Normal. Neurologic: Gait normal. Reflexes normal and symmetric. Sensation to light touch and crainal nerves2-12 intact.. Health Maintenance List SHINGRIX VACCINE(2 of 2) due on 02/28/2021 ADVANCE DIRECTIVE DISCUSSION Never done COVID-19 VACCINE(4 - Booster for Moderna series) due on 09/23/2021 DTAP,TDAP,TD(4 - Td or Tdap) due on 03/30/2022 DIABETES SCREEN due on 04/28/2024 BONE DENSITY Completed INFLUENZA Completed PNEUMOVAX AGE 65 AND OVER WITH 5YR LOOKBACK Completed MENINGOCOCCAL CONJUGATE Aged Out Data reviewed Component Latest Ref Rng & Units 04/28/2021 WBC 3.70 - 11.00 k/uL 9.52 RBC 3.90 - 5.20 m/uL 4.84 Hemoglobin 11.5 - 15.5 g/dL 14.7 Hematocrit 36.0 - 46.0 % 43.4 MCV 80.0 - 100.0 fL 89.7 MCH 26.0 - 34.0 pG 30.4 MCHC 30.5 - 36.0 g/dL 33.9 RDW-CV 11.5 - 15.0 % 13.4 Platelet Count 150 - 400 k/uL 257 MPV 9.0 - 12.7 fL 10.2 Neut% % 72.0 Abs Neut (ANC) 1.45 - 7.50 k/uL 6.85 Lymph% % 21.1 Abs Lymph 1.00 - 4.00 k/uL 2.01 Craighead% % 5.0 Abs [place] <0.87 k/uL 0.48 Eosin% % 1.3 Abs Eosin <0.46 k/uL 0.12 Baso% % 0.6 Abs Baso <0.11 k/uL 0.06 Nucleated Reds 0 /100 WBC 0.0 Absolute nRBC <0.01 k/uL <0.01 Diff Type Auto Diff Color Yellow Yellow Clarity Clear Clear Glucose, Urine Negative mg/dL Negative Bilirubin, Urine Negative Negative Ketones, Urine Negative Negative Specific [place], Ur 1.005 - 1.030 1.021 Hemoglobin/Blood,Ur Negative Negative pH, Urine 5.0 - 8.0 5.0 Protein, Urine Negative Negative Urobilinogen Negative E.U./dL Negative Nitrites Negative Negative Leukest Negative 1+ (A) Comment SEE COMMENT Urine Alfredo Comment SEE COMMENT WBC, Urine 0 - 5 /HPF 0-5 RBC, Urine 0 - 3 /HPF 0-3 Cast 0 /LPF SEE COMMENT (A) Epithelial Cells /HPF SEE COMMENT Protein, Total 6.3 - 8.0 g/dL 6.6 Albumin 3.9 - 4.9 g/dL 4.6 Calcium 8.5 - 10.2 mg/dL 9.5 Bilirubin, Total 0.2 - 1.3 mg/dL 0.4 Alkaline Phosphatase 34 - 123 U/L 70 AST 13 - 35 U/L 20 Glucose 74 - 99 mg/dL 108 (H) BUN 7 - 21 mg/dL 16 Creatinine 0.58 - 0.96 mg/dL 0.73 Sodium 136 - 144 mmol/L 140 Potassium 3.7 - 5.1 mmol/L 3.9 Chloride 97 - 105 mmol/L 106 (H) CO2 22 - 30 mmol/L 21 (L) Anion Gap 9 - 18 mmol/L 13 ALT 7 - 38 U/L 21 eGFR- >60 eGFR-All Other Races . >60 Total Cholesterol, Nonfasting <200 mg/dL 177 Triglycerides, Nonfasting <150 mg/dL 205 (H) HDL Cholesterol, Nonfasting >39 mg/dL 58 LDL Cholesterol, Nonfasting <100 mg/dL 78 Non HDL Cholesterol, Nonfasting <130 mg/dL 119 VLDL Cholesterol, Nonfasting <30 mg/dL 41 (H) Total Chol/HDL Ratio, Nonfasting <5.10 mg/dL 3.05 LDL/HDL Ratio, Nonfasting <2.54 mg/dL 1.34 A/P ASSESSMENT/PLAN: 1. Medicare annual wellness visit, subsequent - ICD9: V70.0, ICD10: Z00.00 (primary diagnosis) - Counseled on healthy diet and regular exercise - Calcium intake with supplements or by diet of 1000 mg/day for under 50, 1200- 1500 mg/day for 50+ - Follow up for annual exam in one year 2. Essential hypertension, benign - ICD9: 401.1, ICD10: I10 - good control - Continue current medication(s) - Recommended regular aerobic exercise. - Recommend home blood pressure monitoring, to bring results in on next visit - Goal of BP <130/80 Check - COMP METABOLIC PANEL - URINALYSIS, WITH MICROSCOPIC - LIPID PANEL, NONFASTING 3. Hyperlipidemia, mixed - ICD9: 272.2, ICD10: E78.2 - to be determined upon return of lab results - Encouraged following a low fat, low cholesterol diet. - Discussed the benefits of regular aerobic exercise and weight loss. - Encouraged following a low carbohydrate, healthy oil intake diet. - COMP METABOLIC PANEL - URINALYSIS, WITH MICROSCOPIC - LIPID PANEL, NONFASTING 4. Adjustment disorder with depressed mood - ICD9: 309.0, ICD10: F43.21 - Doing well on Effexor. 5. Smoker - ICD9: 305.1, ICD10: F17.200 - Cessation encouraged. - Counseling was given focusing on the harmful effects of this addiction especially given the patient's medical condition(s) which will be worsened because of the chemicals in tobacco. 6. 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 Medication management - ICD9: V58.69, ICD10: Z79.899 Check - CBC + DIFF 8. Living will on file - ICD9: V49.89, ICD10: Z87.898 - On file 9. Advance directive discussed with patient - ICD9: V65.49, ICD10: Z71.89 - On file 10. Acute pain of right shoulder - ICD9: 719.41, ICD10: M25.511 Check - XR SHOULDER GENERAL 3V OR MORE AP/TRUE AP/OTHER RIGHT - CONSULT TO PHYSICAL THERAPY 11. Right hip pain - ICD9: 719.45, ICD10: M25.551 Check - XR HIP GENERAL 3V PELV/AP/LAT RIGHT - CONSULT TO PHYSICAL THERAPY Signed Prescriptions Disp Refills losartan (COZAAR) 100 mg tablet 90 tablet 1 Sig: Take 1 tablet by mouth once daily. MINERVA: No venlafaxine ER (EFFEXOR XR) 75 mg 24 hr capsule 90 capsule 1 Sig: Take 1 capsule by mouth once daily. MINERVA: No simvastatin (ZOCOR) 20 mg tablet 90 tablet 1 Sig: Take 1 tablet by mouth daily at bedtime. MINERVA: No amLODIPine (NORVASC) 5 mg tablet 90 tablet 1 Sig: Take 1 tablet by mouth once daily. MINERVA: No predniSONE (DELTASONE) 10 mg tablet 39 tablet 0 Sig: Take 6 tabs by mouth for 3 days then 4 tabs a day for 3 days then 2 tabs a day for 3 days and then 1 tab a day for 3 days. F/u in a year extensive Signed Prescriptions Disp Refills losartan (COZAAR) 100 mg tablet 90 tablet 1 Sig: Take 1 tablet by mouth once daily. MINERVA: No venlafaxine ER (EFFEXOR XR) 75 mg 24 hr capsule 90 capsule 1 Sig: Take 1 capsule by mouth once daily. MINERVA: No simvastatin (ZOCOR) 20 mg tablet 90 tablet 1 Sig: Take 1 tablet by mouth daily at bedtime. MINERVA: No amLODIPine (NORVASC) 5 mg tablet 90 tablet 1 Sig: Take 1 tablet by mouth once daily. MINERVA: No predniSONE (DELTASONE) 10 mg tablet 39 tablet 0 Sig: Take 6 tabs by mouth for 3 days then 4 tabs a day for 3 days then 2 tabs a day for 3 days and then 1 tab a day for 3 days. F/u in a year or sooner if issues. I spent a total of 40 minutes on the date of the service which included preparing to see the patient, [id number] patient care, completing clinical documentation, performing a medically appropriate examination, counseling and educating the patient/family/caregiver and ordering medications, tests, or procedures. Carl Rendon MD [facility] of Past illness Narrative* Problem Noted Date Resolved Date Supraspinatus tendonitis 06/13/2013 016 Iron deficiency anemia 04/08/2005 5 documented as of this encounter (statuses as of 12/16/2021) [facility] History of Past illness Narrative* Problem Noted Date Resolved Date Supraspinatus tendonitis 06/13/2013 016 Iron deficiency anemia 04/08/2005 5 documented as of this encounter (statuses as of 12/16/2021) [facility] History of Past illness Narrative* Problem Noted Date Resolved Date Supraspinatus tendonitis 06/13/2013 016 Iron deficiency anemia 04/08/2005 5 documented as of this encounter (statuses as of 12/19/2021) [facility] History of Past illness Narrative* Problem Noted Date Resolved Date Supraspinatus tendonitis 06/13/2013 016 Iron deficiency anemia 04/08/2005 5 documented as of this encounter (statuses as of 01/02/2022) [facility] History of Past illness Narrative* Problem Noted Date Resolved Date Supraspinatus tendonitis 06/13/2013 016 Iron deficiency anemia 04/08/2005 5 documented as of this encounter (statuses as of 05/11/2022) [facility] of Past illness Narrative* Problem Noted Date Resolved Date Supraspinatus tendonitis 06/13/2013 016 Iron deficiency anemia 04/08/2005 5 documented as of this encounter (statuses as of 07/02/2022) [facility] of Past illness Narrative* Problem Noted Date Resolved Date Supraspinatus tendonitis 06/13/2013 016 Iron deficiency anemia 04/08/2005 5 documented as of this encounter (statuses as of 07/06/2022) [facility] of Past illness Narrative* Problem Noted Date Resolved Date Supraspinatus tendonitis 06/13/2013 016 Iron deficiency anemia 04/08/2005 5 documented as of this encounter (statuses as of 10/05/2022) [facility] of Past illness Narrative* Problem Noted Date Resolved Date Supraspinatus tendonitis 06/13/2013 016 Iron deficiency anemia 04/08/2005 5 documented as of this encounter (statuses as of 11/23/2022) [facility] of Past illness Narrative* Problem Noted Date Resolved Date Supraspinatus tendonitis 06/13/2013 016 Iron deficiency anemia 04/08/2005 5 documented as of this encounter (statuses as of 12/25/2022) [facility] of Past illness Narrative* Problem Noted Date Resolved Date Supraspinatus tendonitis 06/13/2013 016 Iron deficiency anemia 04/08/2005 5 documented as of this encounter (statuses as of 12/28/2022) [facility] of Past illness Narrative* Problem Noted Date Resolved Date Supraspinatus tendonitis 06/13/2013 016 Iron deficiency anemia 04/08/2005 5 documented as of this encounter (statuses as of 12/30/2022) [facility] of Past illness Narrative* Problem Noted Date Resolved Date Supraspinatus tendonitis 06/13/2013 016 Iron deficiency anemia 04/08/2005 5 documented as of this encounter (statuses as of 01/08/2023) [facility] of Past illness Narrative* Problem Noted Date Resolved Date Supraspinatus tendonitis 06/13/2013 016 Iron deficiency anemia 04/08/2005 5 documented as of this encounter (statuses as of 01/13/2023) [facility] of Past illness Narrative* Problem Noted Date Resolved Date Supraspinatus tendonitis 06/13/2013 016 Iron deficiency anemia 04/08/2005 5 documented as of this encounter (statuses as of 01/14/2023) [facility] of Past illness Narrative* Problem Noted Date Resolved Date Supraspinatus tendonitis 06/13/2013 016 Iron deficiency anemia 04/08/2005 5 documented as of this encounter (statuses as of 01/21/2023) [facility] of Past illness Narrative* Problem Noted Date Resolved Date Supraspinatus tendonitis 06/13/2013 016 Iron deficiency anemia 04/08/2005 5 documented as of this encounter (statuses as of 01/27/2023) [facility] of [facility] illness Narrative* Problem Noted Date Diagnosed Date Resolved Date Supraspinatus tendonitis 06/13/201304/2016 Iron deficiency anemia 04/08/200506/03 documented as of this encounter (statuses as of 02/10/2023) [facility] of Past illness Narrative* Problem Noted Date Diagnosed Date Resolved Date Supraspinatus tendonitis 06/13/201304/2016 Iron deficiency anemia 04/08/200506/03 documented as of this encounter (statuses as of 02/19/2023) [facility] of Past illness Narrative* Problem Noted Date Diagnosed Date Resolved Date Supraspinatus tendonitis 06/13/201304/2016 Iron deficiency anemia 04/08/200506/03 documented as of this encounter (statuses as of 05/27/2023) [facility] Author Isidoro Medrano [facility] Note Date/Time May 09, 2025 1 2:19pm [facility] Medical Records Department [address] [place] [address] Emergency Department Summary 05/09/25 MR#: [id number] Acct: [id number] Name: CHERYL ABARCA Rep #:[id number] 89 From: Isidoro ferro DO PCP: Dr. Carl Rendon MD Status:REG ER Location: ED HPI History of Present Illness Chief Complaint: General Illness Narrative Narrative: Chief complaint and HPI: 89-year-old female with past medical history of atrial fibrillation with RVR on Eliquis, HTN, sleep apnea presents for evaluation of dyspnea and dry heaving. Patient states for the past couple weeks she has been having episodic dyspnea with activity and orthopnea. States she gets these episodes of dry heaving as well. She states she was seated recently [facility] for same symptom 05/[facility]. I reviewed the note at that time inich she was in A-fib with RVR. She was ultimately discharged home with cardiology follow-up. Patient states she was post have a follow-up appointment with cardiology yesterday however it was canceled. States this morning shortly after waking up she had a dry heaving episode that led to dyspnea which is why she presents. She denies any fever, chills, chest pain, abdominal pain. Review of systems: See HPI Medications: As listed on the chart Allergies: As listed on the chart PFSH: Per chart Vital signs: As listed on the chart. Reviewed. Physical exam: Gen: A&O x3, NAD Head: Normocephalic, atraumatic Eyes: No sclera icterus, conjunctiva clear ENT: Moist mucous membranes Neck: Trachea midline CV: Irregularly irregular rhythm, intermittently tachycardic, no murmurs, no peripheral edema Resp: Lungs CTA BL, no w/r/c GI: Abd soft, non-distended, non-tender, no r/r/g Musc: Full ROM, no deformity Skin: Warm, dry Neuro: Alert, oriented, grossly intact, sensation intact Psych: Cooperative, appropriate mood and affect [facility] Medical History HTN (hypertension), benign Paroxysmal atrial fibrillation Bradycardia Anxiety and depression Smoker Sleep apnea HTN (hypertension) Afib Home Medications ?Medication ?Instructions ?Recorded ?Last Taken ?Type losartan 100 mg tablet 100 mg PO DAILY blood pressu re 12/28/23 05/01/25 History simvastatin 20 mg tablet 20 mg PO QHS cholesterol 11/1605/01/25 History calcium carbonate (Tums) 300 mg PO BID 04/12/24 Unkno wn History venlafaxine 150 mg 150 mg PO QHS 04/12/2405/01 History capsule,extended release 24 hr apixaban 5 mg tablet (Eliquis) 5 mg PO BID #180 TABLET S 12/29/24 05/01/25 Rx latanoprost 0.005 % eye drops 1 drp ophthalmic (eye) Q DAY 03/16/25 Unknown History spironolactone 25 mg tablet 25 mg PO QDAY #90 tabs 05/01/25 Rx vit C 250 mg-vit E 90 mg-zinc 40 1 tab PO BID 04/10/25 05/01/25 History mg-copper 1 in-dmgzpn-octowb capsule (PreserVision AREDS-2) amiodarone 200 mg tablet 200 mg PO QDAY #30 tabs 03/2605/01/25 Rx buspirone 15 mg tablet 15 mg PO BID 04/20/25 History cholecalciferol (vitamin D3) 50 2,000 unit PO QDAY 05/01/25 History mcg (2,000 unit) tablet metoprolol succinate 25 mg 25 mg PO BID #60 tabs 04/2405/01/25 Rx tablet,extended release 24 hr torsemide 20 mg tablet 20 mg PO QAM #30 tabs 05/01/25 Rx benzonatate 200 mg capsule 200 mg PO TID PRN PRN cough 05/02/25 Unknown History cefadroxil 500 mg capsule 500 mg PO BID 05/02/2505/01 History Allergy/AdvReac Type Severity Reaction Status Date / Time sulfamethoxazole (From Allergy Intermediate Rash Verified 05/02/25 10:30 Bactrim) trimethoprim (From Bactrim) Allergy Intermediate Rash Verified 05/02/25 10:30 Sulfa (Sulfonamide Allergy Mild Rash Verified 05/02/25 10:30 Antibiotics) Family History Mother Hypertension Grandfather Hypertension Grandmother Hypertension Father Cancer Surgical History History of tonsillectomy History of carpal tunnel release Social History household members: spouse Smoking Status: Former smoker how long ago did patient quit smokin12/30/2023 alcohol intake: current alcohol intake frequency: holidays/special occasions only substance use type: does not use caffeine: No EXAM Physical Exam Const Vital Signs: 05/09/25 07:41 05/09/25 09:41 05/09/25 11:00 Temperature 96.6 F L Temperature Source Temporal Pulse Rate 93 95 92 Respiratory Rate 17 18 18 Blood Pressure 128/88 H 124/94 H 124/90 H Blood Pressure Mean 101 104 101 Pulse Ox 99 99 99 Oxygen Delivery Method Room Air MDM MDM MDM Narrative Medical decision making narrative: 89-year-old female with past medical history of atrial fibrillation with RVR on Eliquis, HTN, sleep apnea presents for evaluation of dyspnea and dry heaving. Patient states for the past couple weeks she has been having episodic dyspnea with activity and orthopnea. States she gets these episodes of dry heaving as well. She states she was seated recently seen in our emergency department for same symptom 05/02. I reviewed the note at that time in which she was in A-fib with RVR. She was ultimately discharged home with cardiology follow-up. Patient states she was post have a follow-up appointment with cardiology yesterday however it was canceled. States this morning shortly after waking up she had a dry heaving episode that led to dyspnea which is why she presents. Onpresentation, patient in no acute distress. She is in atrial fibrillation with intermittent tachycardia in the 110s. Patient states she did not take any of her medication today. Will order IV metoprolol and her p.o. morning metoprolol. Differential diagnosis includes but is not limited to atrial fibrillation with RVR, symptomatic atrial fibrillation, electrolyte abnormality, ACS, CHF exacerbation. On chart review, patient saw cardiology on 04/24. She had a CTA chest on 04/17 that was negative for PE. She had an echocardiogram on 12/28/2023 with a EF of 50%. CBC with mild leukocytosis of 13, no anemia. Platelets unremarkable. D- dimer unremarkable. BMP shows renal insufficiency with a BUN of 33 and a creatinine of 1.37. Creatinine was 1.2 on 05/02. She has a mild anion gap of 17 as well as hyperglycemia of 240. On chart review she had hyperglycemia on 05/02. Patient has no history of diabetes. Will add on VBG, UA, hemoglobin A1c to assess for new onset diabetes. Renal insufficiency may besecondary to dehydration as well as diuretic use. BNP elevated at 11,842. Thisis worsened from 05/02 at 6615. Patient mildly fluid overloaded. Magnesium mildly elevated at 2.5. Troponin 23 and 24 this appears to be her baseline as on 05/02 it was 21. VBG without acidosis. Hemoglobin A1c 6. Patient is prediabetic. UA negative for UTI. Patient symptoms are likely secondary to mildCHF exacerbation. On chart review, patient was originally on furosemide 40 mg daily. She was switched to torsemide 20 mg every morning however she was to double this on the , , which she did. She feels like she is not urinating as much as she did when she was on the furosemide. On reevaluation, patient's heart rate is controlled however she still remains in A-fib. Will consult cardiology. After speaking with Dr. Ta, plan is to stop the patient's torsemide and instead start her on 60 mg of Lasix daily. Will have her repeat labs in a couple days to monitor for renal insufficiency. She was updated of all the results confirmed understand the plan. Follow-up with cardiology. Patient states she does have a cardiology appointment tomorrow. Return precautions explained. EKG: Interpreted by me/EM physician: EKG shows atrial fibrillation with RVR. Known left bundle branch block. Heart rate 106. This is similar to previous EKG earlier this month. Diagnostic: Interpreted by me/EM physician: Chest x-ray shows mild cardiomegaly and vascularcongestion. No large effusion, pneumothorax, pneumonia. Radiology in agreement. This is slightly worse than previous chest x-ray. Impression: 1. Atrial fibrillation with RVR, now rate controlled 2. Mild CHF exacerbation 3. Renal insufficiency 4. Prediabetic Lab Data Labs: Laboratory Results - last 24 hr 05/09/25 05/09/25 05/09/25 07:58 09:56 10:40 WBC 13.0 H RBC 4.36 Hgb 13.7 Hct 41.3 MCV 94.7 MCH 31.4 MCHC 33.2 RDW Std Deviation 52.1 H RDW Coeff of Angie 14.9 H Plt Count 336 MPV 9.9 Immature Gran % (Auto) 0.500 Neut % (Auto) 87.4 H Lymph % (Auto) 8.3 L [place] % (Auto) 2.8 Eos % (Auto) 0.5 Baso % (Auto) 0.5 Absolute Neuts (auto) 11.3 H Absolute Lymphs (auto) 1.07 Nucleated RBC % 0 D-Dimer Quant (PE/DVT) 0.30 Sodium 139 Potassium 4.0 Chloride 100 Carbon Dioxide 21.8 Anion Gap 17 H BUN 33 H Creatinine 1.37 H Est GFR (MDRD) Non-Af 37 L BUN/Creatinine Ratio 23.8 H Glucose 240 H Hemoglobin A1c 6.0 H Calcium 9.7 Magnesium 2.5 H Troponin T High Sens 23 H D Troponin T Hi Sens 2 Hr 24 [place] [address] H Urine Color Yellow Urine Clarity Clear Urine pH 6.0 Ur Specific Gridley 1.020 Urine Protein 100 H Urine Glucose (UA) Normal Urine Ketones Negative Urine Occult Blood Negative Urine Nitrite Negative Urine Bilirubin Negative Urine Urobilinogen 1 H Ur Leukocyte Esterase 25 H Urine RBC 0 SEEN Urine WBC 0-5 SEEN Ur Squamous Epith Cells 0-5 SEEN Urine Bacteria 0 SEEN Hyaline Casts 0-5 SEEN Urine Mucus 0 SEEN ABG Data ABG results: ABG 05/09/25 10:00 Specimen Type JOE Sample Site Not entered VBG pH 7.46 H VBG pO2 23 L VBG HCO3 27 H VBG Total CO2 28 VBG O2 Sat (Calc) 44 L VBG Base Excess 3 POC Mix VBG pCO2 Pt Tmp 37.5 L O2 Delivery Device Not entered Radiography Diagnostic Testing: Clinical Impression(s) from Imaging Studies Chest X-Ray 05/09/25 09:00 IMPRESSION: There is mild cardiomegaly with mild central vascular congestion. Reading Location: [facility] Discharge Plan Triage Chief Complaint: General Illness ED Provider: Isidoro Medrano Dx/Rx/DC Orders Prescriptions: No Action venlafaxine 150 mg capsule,extended release 24hr 150 mg PO QHS Tums 300 mg (750 mg) tablet,chewable 300 mg PO BID cholecalciferol (vitamin D3) 50 mcg (2,000 unit) tablet 2,000 unit PO QDAY latanoprost 0.005 % drops 1 drp ophthalmic (eye) QDAY torsemide 20 mg tablet 20 mg PO QAM Qty: 30 0RF metoprolol succinate 25 mg tablet extended release 24 hr 25 mg PO BID Qty: 60 3RF PreserVision AREDS-2 250-90-40-1 mg capsule 1 tab PO BID spironolactone 25 mg tablet 25 mg PO QDAY Qty: 90 3RF buspirone 15 mg tablet 15 mg PO BID simvastatin 20 mg tablet 20 mg PO QHS losartan 100 mg tablet 100 mg PO DAILY benzonatate 200 mg capsule 200 mg PO TID PRN PRN (Reason: cough) cefadroxil 500 mg capsule 500 mg PO BID Eliquis 5 mg tablet 5 mg PO BID Qty: 180 3RF amiodarone 200 mg tablet 200 mg PO QDAY Qty: 30 3RF Patient Comments: 200MG TWICE DAILY ON 01/05-01/12, THEN ON 01/13 200MG ONCE DAILY Primary Care Provider: Carl Rendon Referrals: Carl Rendon MD [Primary Care Provider, Family Practice] Print Language: Somali What to do if you have Problems For any increased pain, shortness of breath, bleeding, nausea or vomiting, chestpain, or any unexpected problems, contact your Primary Care Provider. Call [facility] ([phone]) or report to the closest Emergency Room. Call 911 if necessary. 05/09/25 1219 <Electronically signed by Isidoro Klusty-Severo DO> Cosigner Signature (if applicable): CC: Dr. Carl Rendon MD ~ Signed [facility] Work Phone: Evaluation note* Diagnosis Medicare annual wellness visit, subsequent- Primary Routine general medical examination at a health care facility Essential hypertension, benign Hyperlipidemia, mixed Mixed hyperlipidemia Adjustment disorder with depressed mood Smoker Tobacco use disorder Vasomotor rhinitis Allergic rhinitis, cause unspecified Medication management Encounter for long-term (current) use of other medications Living will on file Advance directive discussed with patient Other specified counseling Acute pain of right shoulder Right hip pain Pain in joint, pelvic region and thigh Need for vaccination Need for prophylactic vaccination and inoculation against unspecified single disease [facility] Diagnosis Acute pain of right shoulder Right hip pain Pain in joint, pelvic region and thigh [facility] Diagnosis Acute pain of right shoulder- Primary Right hip pain Pain in joint, pelvic region and thigh [facility] Diagnosis Essential hypertension, benign- Primary [facility] Diagnosis Acute cough- Primary [facility] Diagnosis Medicare annual wellness visit, subsequent- Primary Routine general medical examination at a health care facility Essential hypertension, benign Hyperlipidemia, mixed Mixed hyperlipidemia Smoker Tobacco use disorder Adjustment disorder with depressed mood Sleep apnea, unspecified type [facility] Diagnosis Acute pain of both knees- Primary [facility] Diagnosis Acute pain of both knees- Primary [facility]* Diagnosis Diarrhea, unspecified type- Primary [facility]* Diagnosis Acute pain of both knees- Primary [facility] Diagnosis Acute pain of both knees- Primary [facility] Diagnosis Acute pain of both knees- Primary [facility] Diagnosis Medicare annual wellness visit, subsequent- Primary Routine general medical examination at a health care facility Advance directive discussed with patient Other specified counseling Smoker Tobacco use disorder Sleep apnea, unspecified type Hyperlipidemia, mixed Mixed hyperlipidemia Essential hypertension, benign Primary osteoarthritis involving multiple joints Fatigue, unspecified type Asymptomatic menopausal state Asymptomatic postmenopausal status (age-related) (natural) Cardiac arrhythmia, unspecified cardiac arrhythmia type Adjustment disorder with depressed mood Atrial fibrillation with RVR (HCC) Atrial fibrillation [facility] Diagnosis New onset atrial fibrillation (HCC)- Primary Atrial fibrillation Paroxysmal atrial fibrillation (HCC) Atrial fibrillation Acute systolic CHF (congestive heart failure) (HCC) Acute systolic heart failure [facility] current use of anticoagulant therapy Long-term (current) use of anticoagulants [facility] Diagnosis Elevated LFTs- Primary Other abnormal blood chemistry Urine ketones Acetonuria Medication management Encounter for long-term (current) use of other medications [facility] Diagnosis Adjustment disorder with depressed mood- Primary Panic disorder Panic disorder without agoraphobia Paroxysmal atrial fibrillation (HCC) Atrial fibrillation Acute systolic CHF (congestive heart failure) (HCC) Acute systolic heart failure Essential hypertension, benign [facility] Diagnosis Asymptomatic menopausal state Asymptomatic postmenopausal status (age-related) (natural) documented [facility] this [facility] Diagnosis LIZZY (generalized anxiety disorder)- Primary Generalized anxiety disorder Panic disorder Panic disorder without agoraphobia Adjustment disorder with depressed mood [facility]* Diagnosis LIZZY (generalized anxiety disorder)- Primary Generalized anxiety disorder Adjustment disorder with depressed mood [facility]* Diagnosis Acute pain of both knees [facility]* Diagnosis Acute pain of right shoulder Right hip pain Pain in joint, pelvic region and thigh documented [facility] this [facility] Diagnosis COVID-19- Primary [facility] this [facility]* Diagnosis Hyperlipidemia, mixed- Primary Mixed hyperlipidemia Paroxysmal atrial fibrillation (HCC) Atrial fibrillation Essential hypertension, benign Sleep apnea, unspecified type Acute systolic CHF (congestive heart failure) (HCC) Acute systolic heart failure [facility]* Diagnosis Medicare annual wellness visit, subsequent- Primary Routine general medical examination at a health care facility Essential hypertension, benign Hyperlipidemia, mixed Mixed hyperlipidemia Chronic systolic CHF (congestive heart failure) (HCC) Chronic systolic heart failure Paroxysmal atrial fibrillation (HCC) Atrial fibrillation Adjustment disorder with depressed mood Smoker Tobacco use disorder LIZZY (generalized anxiety disorder) Generalized anxiety disorder Primary osteoarthritis involving multiple joints Excessive ear wax, left 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 Preglaucoma, unspecified Advance directive discussed with patient Other specified counseling Screening for depression Medication management Encounter for long-term (current) use of other medications documented in this encounter [facility]* Diagnosis 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- Primary Common wart Other specified viral warts documented in this encounter [facility] note* Diagnosis Common wart- Primary Other specified viral warts documented in this encounter [facility] note* Diagnosis Itchy scalp- Primary Unspecified pruritic disorder Rash Rash and other nonspecific skin eruption documented in this encounter [facility] note* Diagnosis Common wart- Primary Other specified viral warts documented in this encounter [facility] noteNo assessment information availableM[facility] Work Phone: Evaluation note* Diagnosis Atrial flutter, unspecified type (HCC)- Primary Paroxysmal atrial fibrillation (HCC) Atrial fibrillation Essential hypertension, benign [facility] 1. Call cardiology office in the morning to get seen within the next 3 to 5 days. 2. Increase your torsemide 20 mg to 2 in the morning for the next 3 days. 3. Continue to take metoprolol 25 mg in the morning and take 2 at nightW[facility] Work Phone: Hospital Discharge instructionsAdditional Instructions Follow-up with your primary care physician for your prediabetes. Follow-up with cardiology. Stop taking your torsemide and instead switched you back to furosemide. You need to have repeat labs done. Keep your cardiology appointment tomorrow. Return back to ED symptoms change or worsen.[facility] Work Phone: Progress note Author Dontrell Hernandez [facility] Note Date/Time April 24, 2025 10:36am [facility] [address] [place] [address]. [address] [place] [address] OFFICE VISIT Date of Service: 04/24/25 MR#: [id number] Acct: [id number] Name: CHERYL ABARCA Rep #: [id number] : 1935 Provider: NKECHI Wyman Age/Sex: 89/F Location: [facility] [place] [facility] Status: Signed HPI HPI History of Present Illness Details: Cheryl Abarca is an 89-year-old female who presents to office today for follow-up. She was evaluated at [facility] 12/27 - 12/30/2023 for congestive heart failure exacerbation. She was noted to be in atrial fibrillation at a rate of 120-140 bpm. Initial recommendation was to have her metoprolol increased. She converted to sinus rhythm prior to discharge. Her exacerbation was thought to be related to new onset atrial fibrillation. Echocardiogram demonstrated ejection fraction of 50% and stage III diastolic dysfunction. Left and right atrium were noted to be normal size, PASP was 38 mmHg. She presented to [facility] emergency room 01/02/2024 with concerns of tachycardia and her medications were adjusted. Patient saw her primary care physician 03/13/2025 for acute concerns of shortnessof breath, dizziness and hypertension noted to be as high as 205/100 at home. EKG at her primary care physician's office that day demonstrated atrial flutter versus atrial fibrillation at a rate of 92 bpm. After consultation with storage receipt poster, primary care physician discontinued amlodipine and initiated metoprolol 50 mg XL daily. She followed up in our office and her amiodarone wasdecreased to 100 mg as EKG demonstrated a prolonged QTc. Additional follow-up in the office with improvement in QTc resulted in decrease in metoprolol and increased back to 200 mg for her amiodarone. She also reported lower extremity edema and significant shortness of breath with an elevated NT proBNP and was treated with diuresis. Upon presentation today, patient reports ongoing SOB. She continues to notice orthopnea sleeping in a recliner for about a week now. She has not been weighingherself daily at home. She is down 1 lb in 2 weeks according to our scale. 130s/90s is reported home BP findings. She reports ongoing fatigue. She reports ongoing LE edema and is now noticed more in her right side than it was 2 weeks ago. Further ROS below. STOP-BANG Assessment: 1. Do you snore? yes 2. Are you frequently tired during the day? yes 3. Have you been observed gasping or choking while asleep? no 4. Do you have high blood pressure? yes 5. BMI - greater than 35kg/m2? No 6. Age - over 50 years old? yes 7. Neck Circumference - greater than 37 cm for females or 40 cm for males? No 8. Gender - male? no Total STOP-BANG score = 3 which indicates high risk for obstructive sleep apnea (yes to 3 or more questions = high risk of sleep apnea). Intake Vital Signs 03/16/25 09:08 04/24/25 07:54 Height 5 ft 2 in 5 ft 2 in Weight: 158 lb BMI 28.9 BP 126/77 H Blood Pressure Location Lt brachial Position Sitting Respiration 18 Pulse 102 H Pulse Source Monitor Pulse Oximetry (%) 97 Intake Visit Reasons: PER SD/NEEDS EKG Anesthetic Assistant Required: No Is patient in pain?: No Allergies sulfamethoxazole (From Bactrim) Allergy (Intermediate, Verified 04/24/25 09:24) Rash trimethoprim (From Bactrim) Allergy (Intermediate, Verified 04/24/25 09:24) Rash Sulfa (Sulfonamide Antibiotics) Allergy (Mild, Verified 04/24/25 09:24) Rash Medications ?Medication ?Instructions ?Recorded ?Confirmed ?Type losartan 100 mg tablet 100 mg PO DAILY blood pressu re 12/28/23 04/24/25 History simvastatin 20 mg tablet 20 mg PO QHS cholesterol 11/1604/24/25 History calcium carbonate (Tums) 300 mg PO BID 04/12/2404/24 History venlafaxine 150 mg 150 mg PO QHS 04/12/2404/24 History capsule,extended release 24 hr apixaban 5 mg tablet (Eliquis) 5 mg PO BID #180 TABLET S 12/29/24 04/24/25 Rx latanoprost 0.005 % eye drops 1 drp ophthalmic (eye) Q DAY 03/16/25 04/24/25 History spironolactone 25 mg tablet 25 mg PO QDAY #90 tabs 04/24/25 Rx vit C 250 mg-vit E 90 mg-zinc 40 1 tab PO BID 04/10/25 04/24/25 History mg-copper 1 [id number] capsule (PreserVision AREDS-2) amiodarone 200 mg tablet 200 mg PO QDAY #30 tabs 03/2604/24/25 Rx buspirone 15 mg tablet 15 mg PO BID 04/20/25 History cholecalciferol (vitamin D3) 50 2,000 unit PO QDAY 04/24/25 History mcg (2,000 unit) tablet metoprolol succinate 25 mg 25 mg PO BID #60 tabs 04/2404/24/25 Rx tablet,extended release 24 hr torsemide 20 mg tablet 20 mg PO QAM #30 tabs 04/24/25 Rx Ejection fraction %: 50 Have you fallen in the past year?: No PFSH Medical History HTN (hypertension), benign Paroxysmal atrial fibrillation Bradycardia Anxiety and depression Smoker Sleep apnea HTN (hypertension) Afib Surgical History History of tonsillectomy History of carpal tunnel release Family History Mother Hypertension Grandfather Hypertension Grandmother Hypertension Father Cancer Social History Smoking Status: Former smoker how long ago did patient quit smokin12/30/2023 alcohol intake: current alcohol intake frequency: holidays/special occasions only substance use type: does not use caffeine: No ROS Const Const: Negative for fatigue, weakness, headache(s) or frequent falls Eyes Eyes: Negative for blurry vision ENT ENT: Positive for dizziness; Negative for headache(s) or Nosebleed/epistaxis Cardio Chest Pain: No Palpitations: No Edema: Bilateral and None Muscle aches with walking: None Resp Respiratory: Positive for SOB with activity and SOB at rest; Negative for SOB orthopnea\\SOB lying down GI GI: Negative nausea, vomiting, heartburn, bright, red blood in stools or black,tarry stools : Negative for hematuria Neuro Neuro: Positive for dizziness and lightheadedness; Negative for near syncope, syncope, frequent falls, headache(s), weakness or blurry vision Endo Endo: Negative for fatigue Cardiology Exam Const Appearance: cooperative, comfortable, no acute distress and well developed; Negative diaphoretic or ill appearing Nutritional Appearance: average body habitus Orientation: alert and oriented x3 Ambulating without assistive device Head Head: normal to inspection, normocephalic and atraumatic Ears: hearing grossly normal bilaterally Nose: external nose normal and Negative epistaxis Face and Sinus: face symmetric Eyes General: appearance normal, both eyes and all related structures Eyelids: eyelids normal Conjunctivae: conjunctivae normal; Negative scleral icterus EOM: EOM intact bilaterally Neck Neck: no JVD Carotids: normal carotid upstroke; Negative bruit Neck Mass: Negative Neck mass Chest Chest inspection: normal respiratory effort; Negative respiratory distress, audible wheezes or tachypneic Auscultation: Bilateral: Clear to Auscultation Cardio Rhythm: irregularly irregular Heart sounds: S1 normal and S2 normal; Negative rub, gallop or murmur Neuro General: patient alert, patient awake, patient oriented x3 and moves all extremities Skin Skin: no rashes or lesions noted Extremities Pulses: Normal: Right Posterior Tibial Pulse, Left Posterior Tibial Pulse, RightRadial Pulse and Left Radial Pulse Lower Extremity Edema: +1: Bilateral Psych Psychological: normal affect Supplemental Info Supplemental Information CTA CHEST (NONGATED) W IVCON PE 04/17/2025 IMPRESSION: 1. ?No pulmonary emboli, no signs of right heart strain. 2. ?Small bilateral pleural effusions and interstitial edema reflecting moderate congestion. 3. ?Mild cardiomegaly, diffuse coronary artery calcifications.. 4. ?Indeterminate 1.3 cm superior pretracheal lymph node may reflect lymphatic congestion. ?Recommend correlation with prior studies if available, otherwise consider follow-up in 6 months to assess for stability/resolution. US DVT LOWER LEFT 04/17/2025 IMPRESSION: Negative study for proximal DVT in the left lower extremity. Negative study for calf DVT in the left lower extremity. Negative study for superficial thrombophlebitis in the imaged segments of the left lower extremity. Echocardiogram 12/28/2023 Interpretation Summary Normal LV size. The estimated ejection fraction is 50 %. Mild concentric left ventricular hypertrophy. Bubble contrast study negative for right to left interatrial shunt. Stage 3 diastolic dysfunction. Holter monitor from 02/02/2024: Normal sinus rhythm with left bundle branch block and periods of paroxysmal atrial fibrillation with frequent PACs and rare PVCs Minimum heart rate 34 bpm. Average heart rate 60 bpm. Maximum heart rate 140 bpm. Ventricular ectopy 0.0%. Supraventricular ectopy 1.7%. Longest R to R interval 2.3 seconds. Atrial fibrillation 21.5% with 40 events and a total of 365.3 minutes. No ventricular tachycardia noted. The patient kept a 48-hour diary. No activities or symptoms recorded. Diagnostics: Electrocardiogram Echocardiogram Chest X-Ray Past Visits: Cardiology Visit Today Assessment and Plan Assessment and Plan (1) Shortness of breath: Status: Acute Plan: Patient denies any improvement in her shortness of breath with furosemide. She had a known elevated NT proBNP a few weeks ago. She does have a history of atrial fibrillation with fluctuating rates which are being addressed as documented below. Plan: Will obtain an echocardiogram and a sleep study. Will discontinue furosemide and initiate torsemide. Recommend patient take torsemide 20 mg twicedaily x 5 days and then maintain on 20 mg daily. Recommend she continue spironolactone. Will obtain BMP today and again in 2 weeks. (2) Paroxysmal atrial fibrillation: Status: Acute Plan: Patient has a history of paroxysmal atrial fibrillation. 14-day Holter monitor 03/21 - 04/04/2025 demonstrated 68% atrial fibrillation, average heart rate of 84 bpm with maximum 157 bpm and minimum 30 bpm. Concern for tacky ladonna arrhythmia. She has a [id number] score of 4 and is anticoagulated with Eliquis 5 mg twice daily. Her EKG in office today demonstrates atrial fibrillation at a rate of 114 bpm with QT/QTc 186/532; however, when manually calculated, QT is captured around 440. Plan: Recommend patient continue anticoagulation. Will increase patient's metoprolol succinate 25 mg from daily to twice daily. Will obtain echocardiogram. We have discussed her fluctuating heart rates and potential fora pacemaker in the future if needed to control her rapid rates. (3) [facility] current use of amiodarone: Status: Acute Plan: EKG in office today demonstrates atrial fibrillation at a rate of 114 bpm with QT/QTc 186/532; however, when manually calculated, QT is captured around 440. Plan: Recommend continuing amiodarone 200 mg daily. Increased metoprolol succinate 25 mg daily to twice daily. (4) HTN (hypertension), benign: Status: Acute Plan: Patient has a history of hypertension. Blood pressure in office today 126/77. Plan: Recommend patient continue losartan and spironolactone. Furosemide was transition to torsemide. Metoprolol succinate was increased secondary to rate concerns. Encourage lifestyle risk factor modification. Orders: Orders 12 Lead EKG performed by BMS Today I48.0 - Paroxysmal atrial fibrillation Echo Complete Today R06.02 - Shortness of breath Split Night Sleep Study Today G47.10 - Hypersomnia, unspecified Medications: New torsemide 20 mg PO QAM 30 tabs 0RF Changed From metoprolol succinate ER 25 mg PO QDAY 30 tabs 3RF To metoprolol succinate ER 25 mg PO BID 60 tabs 3RF Discontinued furosemide Discontinued Reason: Order Changed 40 mg PO DAILY 90 TABLETS 3RF Plan 1. Stop furosemide, start torsemide 20mg BID for 5 days and then daily following. Increase metoprolol to twice a day. 2. We will get a sleep study and echocardiogram 3. Will obtain BMP today and again in 2 weeks Patient will follow-up in 4 weeks or sooner, if needed. Thank you for allowing me to participate in the care of your patient. Please don't hesitate to call if any issues arise. This note was generated using a voice recognition system and there may be incorrect words, spelling, or punctuation that were not noted when reviewing theoffice note prior to saving. Portions of this documentation were copied and pasted from previous office visitnotes to provide a cohesive continuity of the history. The note has been reviewed, edited, and updated, as necessary. Patient Instructions: 1. Stop furosemide, start torsemide 20mg BID for 5 days and then daily following. Increase metoprolol succinate to twice a day. 2. We will get a sleep study and echocardiogram 3. 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 Carl Rendon MD ~ [facility] Work Phone: Progress note Author Elida Gann [facility] Note Date/Time May 10, 2025 1 1:52am [facility] [address] [place] [address] OFFICE VISIT Date of Service: 05/10/25 MR#: [id number] Acct: [id number] Name: CHERYL ABARCA Rep #: [id number] : 1935 Provider: SATHISH Gann Age/Sex: 89/F Location: [facility] [place] [facility] Status: Signed HPI HPI History of Present Illness Details: Cheryl Abarca is an 89-year-old female who presents to office today for a hospital follow-up visit. She presented to [facility] ED 05/02/25 and again on 05/09/2025 for dyspnea and orthopnea and was found to be in A.fib with RVR both times. 05/02 BNP 6615, 05/09 BNP 11,842. She stated that she had about 5 days of feeling "good" after initial visit before becoming symptomatic again prompting her to return to the ED. On 05/09/2025, chest xray showed mild cardiomegaly and vascular congestion without large effusion, pneumothorax, pneumonia that was slightly worse than previous chest x- ray. Patient had a similar episode in December 2023 where she presented for similar symptoms and was found to be in A.fib with RVR (HRs 120-140). A. fib was diagnosed at this time and metoprolol was increased. At that time echocardiogram demonstrated ejection fraction of 50% and stage III diastolic dysfunction. Left and right atrium were noted to be normal size, PASP was 38 mmHg. From a cardiac standpoint, the patient is doing well. She denies any palpitations, chest pain, pressure or heaviness. She does acknowledge SOB with exertion, and orthopnea. She denies PND. She does not have bleeding issues; no blood in urine, stool, or nosebleeds. She does acknowledge fatigue. She denies myalgias, or claudication. She does not have edema, or sudden weight gain. She does acknowledge occasional dizziness-with standing up too quickly. She denies lightheadedness, syncopal or near syncopal episodes, and headaches. Intake Vital Signs 05/02/25 10:28 05/10/25 10:51 05/10/25 11:46 Height 5 ft 2 in 5 ft 2 in Weight: 153 lb BMI 28.0 BP 107/70 Blood Pressure Location Lt brachial Position Sitting Respiration 18 Pulse 112 H 90 Pulse Source Monitor Monitor Intake Visit Reasons: S/P [facility] 05/02 Anesthetic Assistant Required: No Is patient in pain?: No Allergies sulfamethoxazole (From Bactrim) Allergy (Intermediate, Verified 05/10/25 11:42) Rash trimethoprim (From Bactrim) Allergy (Intermediate, Verified 05/10/25 11:42) Rash Sulfa (Sulfonamide Antibiotics) Allergy (Mild, Verified 05/10/25 11:42) Rash Medications ?Medication ?Instructions ?Recorded ?Confirmed ?Type losartan 100 mg tablet 100 mg PO DAILY blood pressu re 12/28/23 05/10/25 History simvastatin 20 mg tablet 20 mg PO QHS cholesterol 11/1605/10/25 History calcium carbonate (Tums) 300 mg PO BID 04/12/2405/10 History venlafaxine 150 mg 150 mg PO QHS 04/12/2405/10 History capsule,extended release 24 hr apixaban 5 mg tablet (Eliquis) 5 mg PO BID #180 TABLET S 12/29/24 05/10/25 Rx latanoprost 0.005 % eye drops 1 drp ophthalmic (eye) Q DAY 03/16/25 05/10/25 History spironolactone 25 mg tablet 25 mg PO QDAY #90 tabs 05/10/25 Rx vit C 250 mg-vit E 90 mg-zinc 40 1 tab PO BID 04/10/25 05/02/25 History mg-copper 1 pf-znpyod-jesszo capsule (PreserVision AREDS-2) amiodarone 200 mg tablet 200 mg PO QDAY #30 tabs 03/2605/10/25 Rx buspirone 15 mg tablet 15 mg PO BID 04/20/25 History cholecalciferol (vitamin D3) 50 2,000 unit PO QDAY 05/10/25 History mcg (2,000 unit) tablet metoprolol succinate 25 mg 25 mg PO BID #60 tabs 04/2405/10/25 Rx tablet,extended release 24 hr furosemide 20 mg tablet (Lasix) 60 mg (3 x 20 mg) PO D AILY 30 days 05/09/25 05/10/25 Rx #90 tabs Ejection fraction %: 50 Have you fallen in the past year?: No PFSH Medical History HTN (hypertension), benign Paroxysmal atrial fibrillation Bradycardia Anxiety and depression Smoker Sleep apnea HTN (hypertension) Afib Surgical History History of tonsillectomy History of carpal tunnel release Family History Mother Hypertension Grandfather Hypertension Grandmother Hypertension Father Cancer Social History household members: spouse Smoking Status: Former smoker how long ago did patient quit smokin12/30/2023 alcohol intake: current alcohol intake frequency: holidays/special occasions only substance use type: does not use caffeine: No ROS Const Const: Positive for fatigue; Negative for weakness, headache(s) or frequent falls Eyes Eyes: Negative for blurry vision ENT ENT: Positive for dizziness (with standing up too fast); Negative for headache(s) or Nosebleed/epistaxis Cardio Chest Pain: No Palpitations: No Edema: None Muscle aches with walking: None Resp Respiratory: Positive for SOB with activity and SOB orthopnea\\SOB lying down; Negative for SOB at rest GI GI: Negative nausea, vomiting (gagging), heartburn, bright, red blood in stools or black,tarry stools : Negative for hematuria Neuro Neuro: Positive for dizziness (with standing up too fast); Negative for lightheadedness, near syncope, syncope, frequent falls, headache(s), weakness or blurry vision Endo Endo: Positive for fatigue Cardiology Exam Const Appearance: cooperative, comfortable, no acute distress and well developed; Negative diaphoretic or ill appearing Nutritional Appearance: average body habitus and overweight Orientation: alert and oriented x3 Head Head: normal to inspection, normocephalic and atraumatic Ears: hearing grossly normal bilaterally Nose: external nose normal Face and Sinus: face symmetric Eyes General: appearance normal, both eyes and all related structures Eyelids: eyelids normal Conjunctivae: conjunctivae normal; Negative scleral icterus EOM: EOM intact bilaterally Neck Neck: no JVD Carotids: normal carotid upstroke; Negative bruit Neck Mass: Negative Neck mass Chest Chest inspection: normal inspection of the chest and normal respiratory effort; Negative respiratory distress, audible wheezes or tachypneic Auscultation: Bilateral: Clear to Auscultation Cardio Rhythm: irregularly irregular Heart sounds: S1 normal and S2 normal; Negative rub, gallop or murmur GI GI: normal to inspection and soft Neuro General: patient alert, patient awake, patient oriented x3 and moves all extremities Skin Skin: no rashes or lesions noted Extremities Pulses: Normal: Right Posterior Tibial Pulse, Left Posterior Tibial Pulse, RightRadial Pulse and Left Radial Pulse Lower Extremity Edema: Trace: Bilateral Psych Psychological: normal affect Supplemental Info Supplemental Information CTA CHEST (NONGATED) W IVCON PE 04/17/2025 IMPRESSION: 1. ?No pulmonary emboli, no signs of right heart strain. 2. ?Small bilateral pleural effusions and interstitial edema reflecting moderate congestion. 3. ?Mild cardiomegaly, diffuse coronary artery calcifications.. 4. ?Indeterminate 1.3 cm superior pretracheal lymph node may reflect lymphatic congestion. ?Recommend correlation with prior studies if available, otherwise consider follow-up in 6 months to assess for stability/resolution. US DVT LOWER LEFT 04/17/2025 IMPRESSION: Negative study for proximal DVT in the left lower extremity. Negative study for calf DVT in the left lower extremity. Negative study for superficial thrombophlebitis in the imaged segments of the left lower extremity. Echocardiogram 12/28/2023 Interpretation Summary Normal LV size. The estimated ejection fraction is 50 %. Mild concentric left ventricular hypertrophy. Bubble contrast study negative for right to left interatrial shunt. Stage 3 diastolic dysfunction. Holter monitor from 02/02/2024: Normal sinus rhythm with left bundle branch block and periods of paroxysmal atrial fibrillation with frequent PACs and rare PVCs Minimum heart rate 34 bpm. Average heart rate 60 bpm. Maximum heart rate 140 bpm. Ventricular ectopy 0.0%. Supraventricular ectopy 1.7%. Longest R to R interval 2.3 seconds. Atrial fibrillation 21.5% with 40 events and a total of 365.3 minutes. No ventricular tachycardia noted. The patient kept a 48-hour diary. No activities or symptoms recorded. Diagnostics: Electrocardiogram Echocardiogram Chest X-Ray Past Visits: Cardiology Visit 05/10/25 Assessment and Plan Assessment and Plan (1) Paroxysmal atrial fibrillation: Status: Acute Plan: Patient has a history of paroxysmal atrial fibrillation. Her EKG from today demonstrates atrial fibrillation with heart rate of 90 bpm, QT/QTc: 414/506. Her 14-day Holter monitor 03/21 - 04/04/2025 demonstrated 68% atrial fibrillation,average heart rate of 84 bpm with maximum 157 bpm and minimum 30 bpm. She is scheduled for an echocardiogram on 05/18/2025, will await those results to assess her left ventricular systolic function, and atrial size. Her VDE2LT2-CMTu score is 4. She will continue Eliquis 5 mg twice daily, amiodarone 200 mg daily, and metoprolol succinate 25 mg twice daily. She was asked to continue tomonitor for any concerning symptoms of atrial fibrillation. Will keep close follow-up with patient. (2) HTN (hypertension), benign: Status: Acute Plan: Patient has a history of hypertension. Her blood pressure is well controlled at this time-107/70. She will continue with her current medical therapy, along withmonitoring her blood pressures at home. She will notify our office of any persistently elevated or low blood pressure readings. 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 Her EKG today demonstrated Atrial Fibrillation, heart rate 90bpm, QT/QTc: 414/506. Her most recent TSH was normal. (4) Shortness of breath: Status: Acute Plan: Patient continues to acknowledge shortness of breath. She is scheduled for an echocardiogram on 05/18/2025-will await those results. Will obtain lab work today to assess for fluid overload. Depending on results, further recommendations will be made. At this time, she will continue spironolactone 25mg daily, and Lasix 60mg daily. Depending on results of echocardiogram, we mayconsider adding Jardiance, or Farxiga. 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 Plan Details Additional Comments: Patient will follow-up in 2 weeks, or sooner if needed. Thank you for allowing me to participate in the care of your patient. Please donot hesitate to call if any issues arise. This note was generated using a voice recognition system and there may be incorrect words, spelling, or punctuation that were not noted when reviewing theoffice note prior to saving. Portions of this documentation were copied and pasted from previous office visitnotes to provide cohesive continuity of the history. The note has been reviewed,edited, and updated, as necessary. 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 Z79.899 Shortness of breath R06.02 Coding Level of Care Code Off vis,est,level 4 Diagnoses Paroxysmal atrial fibrillation I48.0 HTN (hypertension), benign I10 [facility] current use of amiodarone Z79.899 Shortness of breath R06.02 Clinical Quality Measures Falls Risk Screening/Assistive Devices Have you fallen in the past year?: No Cardiac Ejection fraction %: 50 05/14/25 0845 <Electronically signed by Elida Gann AIX ADMINISTRATOR AIX ADMINISTRATOR-C> Date _ Elida Gann NP, NP-C Cosigner Signature: Date (if applicable) CC: ~ [employer] Work Phone: Reason for referral (narrative)* Outpatient Procedure (Routine) - Pending Review Specialty Diagnoses / Procedures Referred By Contac t Referred To [facility] Diagnoses Cardiac arrhythmia, unspecified cardiac arrhythmia type Procedures ECG COMPLETE ECG ROUTINE ECG W/LEAST 12 LDS W/I&R Dionna Uriarte PA-C [address] [place] [address] [facility] [place] [address] [place] [address] Referral ID Status Reason Start Date Expiration Date Visits Requested Visits Authorized [id number] Pending Review Auto-Generat ed Referral 12/27/2023 12/26/2024 1 1 * Diagnostic Procedure Only (Routine) - Pending Review Specialty Diagnoses / Procedures Referred By Contac t Referred To Contact XR IMAGING Diagnoses Asymptomatic menopausal state Procedures DXA-AXIAL SKELETON Dionan Uriarte PA-C [address] [place] [address] [place] [address] Referral ID Status Reason Start Date Expiration Date Visits Requested Visits Authorized [id number] Pending Review Auto-Generat ed Referral 12/27/2023 01/25/2025 1 1 [facility] for referral (narrative)* Diagnostic Procedure Only (Routine) - Closed Specialty Diagnoses / Procedures Referred By Contac t Referred To Contact XR IMAGING Diagnoses Acute pain of both knees Procedures XR KNEE GENERAL 4V AP BOTH/PA BOTH/LAT/MERC BILATERAL RADIOLOGIC EXAM KNEE COMPLETE 4/MORE VIEWS Carl Rendon MD [address] [place] [address] [place] [address] Referral ID Status Reason Start Date Expiration Date V isits Requested Visits Authorized [id number] Closed Auto-Generate d Referral 12/16/2022 01/15/2024 1 1 [facility] for referral (narrative)* Diagnostic Procedure Only (Routine) - Closed Specialty Diagnoses / Procedures Referred By Contac t Referred To Contact XR IMAGING Diagnoses Right hip pain Procedures XR HIP GENERAL 3V PELV/AP/LAT RIGHT RADEX HIP UNILATERAL WITH PELVIS 2-3 VIEWS Carl Rendon MD [address] [place] [address] [place] [address] Referral ID Status Reason Start Date Expiration Date V isits Requested Visits Authorized [id number] Closed Auto-Generate d Referral 12/15/2021 01/14/2023 1 1 * Diagnostic Procedure Only (Routine) - Closed Specialty Diagnoses / Procedures Referred By Contac t Referred To Contact XR IMAGING Diagnoses Acute pain of right shoulder Procedures XR SHOULDER GENERAL 3V OR MORE AP/TRUE AP/OTHER RIGHT RADEX SHOULDER COMPLETE MINIMUM 2 VIEWS Carl Rendon MD [address] [place] [address] [place] [address] Referral ID Status Reason Start Date Expiration Date V isits Requested Visits Authorized [id number] Closed Auto-Generate d Referral 12/15/2021 01/14/2023 1 1 [facility] for referral (narrative)No reason for referral information [facility] Work Phone: Reason for visit Narrative* Diagnostic Procedure Only (Routine) - Closed Specialty Diagnoses / Procedures Referred By Contac t Referred To Contact XR IMAGING Diagnoses Asymptomatic menopausal state Procedures DXA-AXIAL SKELETON Dionna Uriarte PA-C [address] [place] [address] [place] [address] Referral ID Status Reason Start Date Expiration Date V isits Requested Visits Authorized [id number] Closed Auto-Generate d Referral 12/27/2023 01/25/2025 1 1 [facility] for visit Narrative* Diagnostic Procedure Only (Routine) - Closed Specialty Diagnoses / Procedures Referred By Contac t Referred To Contact XR IMAGING Diagnoses Acute pain of both knees Procedures XR KNEE GENERAL 4V AP BOTH/PA BOTH/LAT/MERC BILATERAL RADIOLOGIC EXAM KNEE COMPLETE 4/MORE VIEWS Carl Rendon MD [address] [place] [address] [place] [address] Referral ID Status Reason Start Date Expiration Date V isits Requested Visits Authorized [id number] Closed Auto-Generate d Referral 12/16/2022 01/15/2024 1 1 [facility] for visit Narrative* Diagnostic Procedure Only (Routine) - Closed Specialty Diagnoses / Procedures Referred By Contac t Referred To Contact XR IMAGING Diagnoses Right hip pain Procedures XR HIP GENERAL 3V PELV/AP/LAT RIGHT RADEX HIP UNILATERAL WITH PELVIS 2-3 VIEWS Carl Rendon MD [address] [place] [address] [place] [address] Referral ID Status Reason Start Date Expiration Date V isits Requested Visits Authorized [id number] Closed Auto-Generate d Referral 12/15/2021 01/14/2023 1 1 [facility] Reason for Referral Specialty Diagnoses / Procedures Referred By Contac t Referred To Contact [facility] Diagnoses Acute pain of right shoulder Right hip pain Procedures CONSULT TO PHYSICAL THERAPY PHYSICAL THERAPY EVALUATION HIGH COMPLEX 45 MINS Carl Rendon MD [address] [place] [address] [facility] [place] [address] [place] [address] Referral ID Status Reason Start Date Expiration Date Visits Requested Visits Authorized [id number] Authorized PCP Requested Referral Auto-Generate d Referral 12/15/2021 12/15/2022 99 99 Specialty Diagnoses / Procedures Referred By Contac t Referred To Contact XR IMAGING Diagnoses Right hip pain Procedures XR HIP GENERAL 3V PELV/AP/LAT RIGHT RADEX HIP UNILATERAL WITH PELVIS 2-3 VIEWS Carl Rendon MD [address] [place] [address] X[facility] Imaging Referral ID Status Reason Start Date Expiration Date V isits Requested Visits Authorized [id number] Closed Auto-Generate d Referral 12/15/2021 01/14/2023 1 1 Specialty Diagnoses / Procedures Referred By Contac t Referred To Contact XR IMAGING Diagnoses Acute pain of right shoulder Procedures XR SHOULDER GENERAL 3V OR MORE AP/TRUE AP/OTHER RIGHT RADEX SHOULDER COMPLETE MINIMUM 2 VIEWS Carl Rendon MD [address] [place] [address] Xr Imaging Referral ID Status Reason Start Date Expiration Date V isits Requested Visits Authorized [id number] Closed Auto-Generate d Referral 12/15/2021 01/14/2023 1 1 Specialty Diagnoses / Procedures Referred By Contac t Referred To Contact [facility] Diagnoses Acute pain of both knees Procedures PT REHAB FOLLOW UP ORDER THERAPEUTIC EXERCISES RE, EA 15 MIN. Keyla Foster, PT [facility] [place] [address] [place] [address] Referral ID Status Reason Start Date Expiration Date Visits Requested Visits Authorized [id number] Pending Review PCP Requested Referral Auto-Generate d Referral 12/30/2022 03/30/2023 1 1 Specialty Diagnoses / Procedures Referred By Contac t Referred To Contact Gastroenterology Diagnoses Diarrhea, unspecified type Procedures CONSULT TO GASTROENTEROLOGY OFFICE/OUTPATIENT [facility] 60-74 MINUTES Carl Rendon MD [address] [place] [address] Referral ID Status Reason Start Date Expiration Date Visits Requested Visits Authorized [id number] Authorized PCP Requested Referral 01/11/2023 01/11/2024 1 1 Advance Directives No Advanced Directives Records FoundDocuments on File Type Date 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 Advance Directive(s) 08/26/2011 12:00 AM Advance Directive(s) 09/09/2006 12:00 AM Documents on File Type Date 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 No January 09, 2024 8:44am Advance Directive Response Recorded Date/ Time Living Will No January 09, 2024 8:44am Do you have a Healthcare Power of [place] Operator? No January 09, 2024 8:44am Do you have a Healthcare Power of [place] Operator? Yes May 02, 2025 10:40am Advance Directive Response Recorded Date/ Time Living Will No January 09, 2024 8:44am Do you have a Healthcare Power of [place] Operator? No January 09, 2024 8:44am Do you have a Healthcare Power of [place] Operator? Yes May 02, 2025 10:40am Do you have a Healthcare Power of [place] Operator? Yes May 09, 2025 8:38am Name of Medical Power of [place] Operator -JADON May 09, 2025 8:38am Chief Complaint and Reason for Visit Chief Complaint Admit Date 1 Y February 20, 2025 10:3 4am Chief Complaint Admit Date 1 Y FU February 20, 2025 10:3 4am INT LAB ORDERS February 20, 2025 11:0 6am PER [facility] CP/HIGH BP March 16, 2025 8: 55am Reason for Visit Admit Date [facility] current use of amiodarone February 20, 2025 10:34am Paroxysmal atrial fibrillation January 10:34am HTN (hypertension), benign February 20 10:34am Chief Complaint Admit Date 1 Y FU February 20, 2025 10:3 4am INT LAB ORDERS February 20, 2025 11:0 6am PER [facility] CP/HIGH BP March 16, 2025 8: 55am Amio; SOB, leg swelling see clinical not es April 10, 2025 8:24am Reason for Visit Admit Date HTN (hypertension), benign 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 February 20, 2025 10:34am Paroxysmal atrial fibrillation January 10:34am HTN (hypertension), benign March 16, 2025 8:55am [facility] current use of amiodarone Augu st 2024 8:55am Paroxysmal atrial fibrillation March 162024 8:55am HTN (hypertension), benign March 8:24am [facility] current use of amiodarone Mar 8:24am Paroxysmal atrial fibrillation April 10, 2025 8:24am Shortness of breath April 10, 2025 8:24am Chief Complaint Admit Date 1 Y FU February 20, 2025 10:3 4am INT LAB ORDERS February 20, 2025 11:0 6am PER [facility] CP/HIGH BP March 16, 2025 8: 55am DIZZINESS A FIB March 21, 2025 6: 27am Amio; SOB, leg swelling see clinical not es April 10, 2025 8:24am INT LABS April 10, 2025 9:37am Amb Documentation April 20, 2025 10:38am PER SD/NEEDS EKG April 24, 2025 9:22am EORDER April 24, 2025 10:47am Reason for Visit Admit Date HTN (hypertension), benign February 20 10:34am [facility] current use of amiodarone February 20, 2025 10:34am Paroxysmal atrial fibrillation January 10:34am HTN (hypertension), benign March 16, 2025 8:55am 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 Augu st 2024 8:55am Paroxysmal atrial fibrillation March 162024 8:55am HTN (hypertension), benign March 8:24am [facility] current use of amiodarone Mar 8:24am Paroxysmal atrial fibrillation April 10, 2025 8:24am Shortness of breath April 10, 2025 8:24am HTN (hypertension), benign March 9:22am [facility] current use of amiodarone Mar 9:22am Paroxysmal atrial fibrillation April 24, 2025 9:22am Shortness of breath April 24, 2025 9:22am Chief Complaint Admit Date 1 Y FU February 20, 2025 10:3 4am INT LAB ORDERS February 20, 2025 11:0 6am PER [facility] CP/HIGH BP March 16, 2025 8: 55am DIZZINESS A FIB March 21, 2025 6: 27am 30 DAY MONITOR March 21, 2025 8: 54am Amio; SOB, leg swelling see clinical not es April 10, 2025 8:24am INT LABS April 10, 2025 9:37am Amb Documentation April 20, 2025 10:38am PER SD/NEEDS EKG April 24, 2025 9:22am EORDER April 24, 2025 10:47am sob May 02, 2025 10 :26am Chief Complaint Admit Date 1 Y FU February 20, 2025 10:3 4am INT LAB ORDERS February 20, 2025 11:0 6am PER [facility] CP/HIGH BP March 16, 2025 8: 55am DIZZINESS A FIB March 21, 2025 6: 27am 30 DAY MONITOR March 21, 2025 8: 54am Amio; SOB, leg swelling see clinical not es April 10, 2025 8:24am INT LABS April 10, 2025 9:37am Amb Documentation April 20, 2025 10:38am PER SD/NEEDS EKG April 24, 2025 9:22am EORDER April 24, 2025 10:47am sob May 02, 2025 10 :26am general May 09, 2025 7 :41am S/P [facility] 05/02May 10, 2025 1 1:01am Shortness of breath May 18, 2025 1 :38pm 4 W FU May 21, 2025 1 0:22am 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 February 20, 2025 10:34am HTN (hypertension), benign February 20 10:34am Paroxysmal atrial fibrillation 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 10:34am 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 Augu st 2024 8:55am HTN (hypertension), benign March 16, 2025 8:55am Paroxysmal atrial fibrillation March 162024 8:55am 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 Sept emb2024 8:24am Shortness of breath April 10, 2025 8:24am HTN (hypertension), benign March 8:24am Paroxysmal atrial fibrillation April 10, 2025 8:24am 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 Sept 2024 9:22am Shortness of breath April 24, 2025 9:22am HTN (hypertension), benign March 9:22am Paroxysmal atrial fibrillation April 24, 2025 9:22am 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 Octo 2024 11:01am Shortness of breath May 10, 2025 1 1:01am HTN (hypertension), benign May 10, 2025 11:01am Paroxysmal atrial fibrillation April 252024 11:01am HFrEF (heart failure with reduced ejecti on fraction) May 21, 2025 10:22am [facility] current use of amiodarone Octo 2024 10:22am Shortness of breath May 21, 2025 1 0:22am HTN (hypertension), benign May 21, 2025 10:22am Paroxysmal atrial fibrillation April 262024 10:22am Family History No Family History Records Found Relationship Condition Age at Onset Recorded Date/T lazaro mother Hypertension Unknown grandfather Hypertension Unknown grandmother Hypertension Unknown father Malignant neoplasm Unknown Summary Purpose Additional Source Comments Source Comments (unrecognize d section and content) In the event this informatio n is protected by the Federal Confidentiality of Alcohol and Drug Abuse Patient Records regulations: The Federal rules restrict any use of the information to criminally investigate or prosecute any alcohol or drug abuse patient.[facility] the event this information is protected by the Federal Confidentiality of Alcohol and Drug Abuse Patient Records regulations: The Federal rules restrict any use of the information to criminally investigate or prosecute any alcohol or drug abuse patient.[facility] the event this information is protected by the Federal Confidentiality of Alcohol and Drug Abuse Patient Records regulations: The Federal rules restrict any use of the information to criminally investigate or prosecute any alcohol or drug abuse patient.[facility] the event this information is protected by the Federal Confidentiality of Alcohol and Drug Abuse Patient Records regulations: The Federal rules restrict any use of the information to criminally investigate or prosecute any alcohol or drug abuse patient.[facility] the event this information is protected by the Federal Confidentiality of Alcohol and Drug Abuse Patient Records regulations: The Federal rules restrict any use of the information to criminally investigate or prosecute any alcohol or drug abuse patient.[facility] Center[facility] the event this information is protected by the Federal Confidentiality of Alcohol and Drug Abuse Patient Records regulations: The Federal rules restrict any use of the information to criminally investigate or prosecute any alcohol or drug abuse patient.[facility] CenterIn the event this information is protected by the Federal Confidentiality of Alcohol and Drug Abuse Patient Records regulations: The Federal rules restrict any use of the information to criminally investigate or prosecute any alcohol or drug abuse patient.[facility] Center[facility] the event this information is protected by the Federal Confidentiality of Alcohol and Drug Abuse Patient Records regulations: The Federal rules restrict any use of the information to criminally investigate or prosecute any alcohol or drug abuse patient.[facility] CenterIn the event this information is protected by the Federal Confidentiality of Alcohol and Drug Abuse Patient Records regulations: The Federal rules restrict any use of the information to criminally investigate or prosecute any alcohol or drug abuse patient.[facility] CenterIn the event this information is protected by the Federal Confidentiality of Alcohol and Drug Abuse Patient Records regulations: The Federal rules restrict any use of the information to criminally investigate or prosecute any alcohol or drug abuse patient.[facility] CenterIn the event this information is protected by the Federal Confidentiality of Alcohol and Drug Abuse Patient Records regulations: The Federal rules restrict any use of the information to criminally investigate or prosecute any alcohol or drug abuse patient.[facility] CenterIn the event this information is protected by the Federal Confidentiality of Alcohol and Drug Abuse Patient Records regulations: The Federal rules restrict any use of the information to criminally investigate or prosecute any alcohol or drug abuse patient.[facility] CenterIn the event this information is protected by the Federal Confidentiality of Alcohol and Drug Abuse Patient Records regulations: The Federal rules restrict any use of the information to criminally investigate or prosecute any alcohol or drug abuse patient.[facility] CenterIn the event this information is protected by the Federal Confidentiality of Alcohol and Drug Abuse Patient Records regulations: The Federal rules restrict any use of the information to criminally investigate or prosecute any alcohol or drug abuse patient.[facility] CenterIn the event this information is protected by the Federal Confidentiality of Alcohol and Drug Abuse Patient Records regulations: The Federal rules restrict any use of the information to criminally investigate or prosecute any alcohol or drug abuse patient.[facility] CenterIn the event this information is protected by the Federal Confidentiality of Alcohol and Drug Abuse Patient Records regulations: The Federal rules restrict any use of the information to criminally investigate or prosecute any alcohol or drug abuse patient.[facility] CenterIn the event this information is protected by the Federal Confidentiality of Alcohol and Drug Abuse Patient Records regulations: The Federal rules restrict any use of the information to criminally investigate or prosecute any alcohol or drug abuse patient.[facility] CenterIn the event this information is protected by the Federal Confidentiality of Alcohol and Drug Abuse Patient Records regulations: The Federal rules restrict any use of the information to criminally investigate or prosecute any alcohol or drug abuse patient.[facility] CenterIn the event this information is protected by the Federal Confidentiality of Alcohol and Drug Abuse Patient Records regulations: The Federal rules restrict any use of the information to criminally investigate or prosecute any alcohol or drug abuse patient.[facility] CenterIn the event this information is protected by the Federal Confidentiality of Alcohol and Drug Abuse Patient Records regulations: The Federal rules restrict any use of the information to criminally investigate or prosecute any alcohol or drug abuse patient.[facility] CenterIn the event this information is protected by the Federal Confidentiality of Alcohol and Drug Abuse Patient Records regulations: The Federal rules restrict any use of the information to criminally investigate or prosecute any alcohol or drug abuse patient.[facility] CenterIn the event this information is protected by the Federal Confidentiality of Alcohol and Drug Abuse Patient Records regulations: The Federal rules restrict any use of the information to criminally investigate or prosecute any alcohol or drug abuse patient.[facility] CenterIn the event this information is protected by the Federal Confidentiality of Alcohol and Drug Abuse Patient Records regulations: The Federal rules restrict any use of the information to criminally investigate or prosecute any alcohol or drug abuse patient.[facility] CenterIn the event this information is protected by the Federal Confidentiality of Alcohol and Drug Abuse Patient Records regulations: The Federal rules restrict any use of the information to criminally investigate or prosecute any alcohol or drug abuse patient.[facility] CenterIn the event this information is protected by the Federal Confidentiality of Alcohol and Drug Abuse Patient Records regulations: The Federal rules restrict any use of the information to criminally investigate or prosecute any alcohol or drug abuse patient.[facility] CenterIn the event this information is protected by the Federal Confidentiality of Alcohol and Drug Abuse Patient Records regulations: The Federal rules restrict any use of the information to criminally investigate or prosecute any alcohol or drug abuse patient.[facility] CenterIn the event this information is protected by the Federal Confidentiality of Alcohol and Drug Abuse Patient Records regulations: The Federal rules restrict any use of the information to criminally investigate or prosecute any alcohol or drug abuse patient.[facility] CenterIn the event this information is protected by the Federal Confidentiality of Alcohol and Drug Abuse Patient Records regulations: The Federal rules restrict any use of the information to criminally investigate or prosecute any alcohol or drug abuse patient.[facility] CenterIn the event this information is protected by the Federal Confidentiality of Alcohol and Drug Abuse Patient Records regulations: The Federal rules restrict any use of the information to criminally investigate or prosecute any alcohol or drug abuse patient.[facility] CenterIn the event this information is protected by the Federal Confidentiality of Alcohol and Drug Abuse Patient Records regulations: The Federal rules restrict any use of the information to criminally investigate or prosecute any alcohol or drug abuse patient.[facility] CenterIn the event this information is protected by the Federal Confidentiality of Alcohol and Drug Abuse Patient Records regulations: The Federal rules restrict any use of the information to criminally investigate or prosecute any alcohol or drug abuse patient.[facility] CenterIn the event this information is protected by the Federal Confidentiality of Alcohol and Drug Abuse Patient Records regulations: The Federal rules restrict any use of the information to criminally investigate or prosecute any alcohol or drug abuse patient.[facility] CenterIn the event this information is protected by the Federal Confidentiality of Alcohol and Drug Abuse Patient Records regulations: The Federal rules restrict any use of the information to criminally investigate or prosecute any alcohol or drug abuse patient.[facility] CenterIn the event this information is protected by the Federal Confidentiality of Alcohol and Drug Abuse Patient Records regulations: The Federal rules restrict any use of the information to criminally investigate or prosecute any alcohol or drug abuse patient.[facility] CenterIn the event this information is protected by the Federal Confidentiality of Alcohol and Drug Abuse Patient Records regulations: The Federal rules restrict any use of the information to criminally investigate or prosecute any alcohol or drug abuse patient.[facility] CenterIn the event this information is protected by the Federal Confidentiality of Alcohol and Drug Abuse Patient Records regulations: The Federal rules restrict any use of the information to criminally investigate or prosecute any alcohol or drug abuse patient.[facility] CenterIn the event this information is protected by the Federal Confidentiality of Alcohol and Drug Abuse Patient Records regulations: The Federal rules restrict any use of the information to criminally investigate or prosecute any alcohol or drug abuse patient.[facility] CenterIn the event this information is protected by the Federal Confidentiality of Alcohol and Drug Abuse Patient Records regulations: The Federal rules restrict any use of the information to criminally investigate or prosecute any alcohol or drug abuse patient.[facility] CenterIn the event this information is protected by the Federal Confidentiality of Alcohol and Drug Abuse Patient Records regulations: The Federal rules restrict any use of the information to criminally investigate or prosecute any alcohol or drug abuse patient.[facility] CenterIn the event this information is protected by the Federal Confidentiality of Alcohol and Drug Abuse Patient Records regulations: The Federal rules restrict any use of the information to criminally investigate or prosecute any alcohol or drug abuse patient.[facility] CenterIn the event this information is protected by the Federal Confidentiality of Alcohol and Drug Abuse Patient Records regulations: The Federal rules restrict any use of the information to criminally investigate or prosecute any alcohol or drug abuse patient.[facility] CenterIn the event this information is protected by the Federal Confidentiality of Alcohol and Drug Abuse Patient Records regulations: The Federal rules restrict any use of the information to criminally investigate or prosecute any alcohol or drug abuse patient.[facility] CenterIn the event this information is protected by the Federal Confidentiality of Alcohol and Drug Abuse Patient Records regulations: The Federal rules restrict any use of the information to criminally investigate or prosecute any alcohol or drug abuse patient.[facility] CenterIn the event this information is protected by the Federal Confidentiality of Alcohol and Drug Abuse Patient Records regulations: The Federal rules restrict any use of the information to criminally investigate or prosecute any alcohol or drug abuse patient.[facility] CenterIn the event this information is protected by the Federal Confidentiality of Alcohol and Drug Abuse Patient Records regulations: The Federal rules restrict any use of the information to criminally investigate or prosecute any alcohol or drug abuse patient.[facility] CenterIn the event this information is protected by the Federal Confidentiality of Alcohol and Drug Abuse Patient Records regulations: The Federal rules restrict any use of the information to criminally investigate or prosecute any alcohol or drug abuse patient.[facility] CenterIn the event this information is protected by the Federal Confidentiality of Alcohol and Drug Abuse Patient Records regulations: The Federal rules restrict any use of the information to criminally investigate or prosecute any alcohol or drug abuse patient.[facility] CenterIn the event this information is protected by the Federal Confidentiality of Alcohol and Drug Abuse Patient Records regulations: The Federal rules restrict any use of the information to criminally investigate or prosecute any alcohol or drug abuse patient.[facility] CenterIn the event this information is protected by the Federal Confidentiality of Alcohol and Drug Abuse Patient Records regulations: The Federal rules restrict any use of the information to criminally investigate or prosecute any alcohol or drug abuse patient.[facility] CenterIn the event this information is protected by the Federal Confidentiality of Alcohol and Drug Abuse Patient Records regulations: The Federal rules restrict any use of the information to criminally investigate or prosecute any alcohol or drug abuse patient.[facility] CenterIn the event this information is protected by the Federal Confidentiality of Alcohol and Drug Abuse Patient Records regulations: The Federal rules restrict any use of the information to criminally investigate or prosecute any alcohol or drug abuse patient.[facility] CenterIn the event this information is protected by the Federal Confidentiality of Alcohol and Drug Abuse Patient Records regulations: The Federal rules restrict any use of the information to criminally investigate or prosecute any alcohol or drug abuse patient.[facility] CenterIn the event this information is protected by the Federal Confidentiality of Alcohol and Drug Abuse Patient Records regulations: The Federal rules restrict any use of the information to criminally investigate or prosecute any alcohol or drug abuse patient.[facility] CenterIn the event this information is protected by the Federal Confidentiality of Alcohol and Drug Abuse Patient Records regulations: The Federal rules restrict any use of the information to criminally investigate or prosecute any alcohol or drug abuse patient.[facility] CenterIn the event this information is protected by the Federal Confidentiality of Alcohol and Drug Abuse Patient Records regulations: The Federal rules restrict any use of the information to criminally investigate or prosecute any alcohol or drug abuse patient.[facility] CenterIn the event this information is protected by the Federal Confidentiality of Alcohol and Drug Abuse Patient Records regulations: The Federal rules restrict any use of the information to criminally investigate or prosecute any alcohol or drug abuse patient.[facility] CenterIn the event this information is protected by the Federal Confidentiality of Alcohol and Drug Abuse Patient Records regulations: The Federal rules restrict any use of the information to criminally investigate or prosecute any alcohol or drug abuse patient.[facility] CenterIn the event this information is protected by the Federal Confidentiality of Alcohol and Drug Abuse Patient Records regulations: The Federal rules restrict any use of the information to criminally investigate or prosecute any alcohol or drug abuse patient.[facility] CenterIn the event this information is protected by the Federal Confidentiality of Alcohol and Drug Abuse Patient Records regulations: The Federal rules restrict any use of the information to criminally investigate or prosecute any alcohol or drug abuse patient.[facility] CenterIn the event this information is protected by the Federal Confidentiality of Alcohol and Drug Abuse Patient Records regulations: The Federal rules restrict any use of the information to criminally investigate or prosecute any alcohol or drug abuse patient.[facility] CenterIn the event this information is protected by the Federal Confidentiality of Alcohol and Drug Abuse Patient Records regulations: The Federal rules restrict any use of the information to criminally investigate or prosecute any alcohol or drug abuse patient.[facility] CenterIn the event this information is protected by the Federal Confidentiality of Alcohol and Drug Abuse Patient Records regulations: The Federal rules restrict any use of the information to criminally investigate or prosecute any alcohol or drug abuse patient.[facility] CenterIn the event this information is protected by the Federal Confidentiality of Alcohol and Drug Abuse Patient Records regulations: The Federal rules restrict any use of the information to criminally investigate or prosecute any alcohol or drug abuse patient.[facility] CenterIn the event this information is protected by the Federal Confidentiality of Alcohol and Drug Abuse Patient Records regulations: The Federal rules restrict any use of the information to criminally investigate or prosecute any alcohol or drug abuse patient.[facility] CenterIn the event this information is protected by the Federal Confidentiality of Alcohol and Drug Abuse Patient Records regulations: The Federal rules restrict any use of the information to criminally investigate or prosecute any alcohol or drug abuse patient.[facility] CenterIn the event this information is protected by the Federal Confidentiality of Alcohol and Drug Abuse Patient Records regulations: The Federal rules restrict any use of the information to criminally investigate or prosecute any alcohol or drug abuse patient.[facility] CenterIn the event this information is protected by the Federal Confidentiality of Alcohol and Drug Abuse Patient Records regulations: The Federal rules restrict any use of the information to criminally investigate or prosecute any alcohol or drug abuse patient.[facility] CenterIn the event this information is protected by the Federal Confidentiality of Alcohol and Drug Abuse Patient Records regulations: The Federal rules restrict any use of the information to criminally investigate or prosecute any alcohol or drug abuse patient.[facility] CenterIn the event this information is protected by the Federal Confidentiality of Alcohol and Drug Abuse Patient Records regulations: The Federal rules restrict any use of the information to criminally investigate or prosecute any alcohol or drug abuse patient.[facility] CenterIn the event this information is protected by the Federal Confidentiality of Alcohol and Drug Abuse Patient Records regulations: The Federal rules restrict any use of the information to criminally investigate or prosecute any alcohol or drug abuse patient.[facility] CenterIn the event this information is protected by the Federal Confidentiality of Alcohol and Drug Abuse Patient Records regulations: The Federal rules restrict any use of the information to criminally investigate or prosecute any alcohol or drug abuse patient.[facility] CenterIn the event this information is protected by the Federal Confidentiality of Alcohol and Drug Abuse Patient Records regulations: The Federal rules restrict any use of the information to criminally investigate or prosecute any alcohol or drug abuse patient.[facility] Reason for Visit (unrecogniz ed section and content) Reason Comments PT Progress Note PT Discharge Specialty Diagnoses / Procedures Referred By Contac t Referred To Contact [facility] Diagnoses Acute pain of both knees Procedures CONSULT TO PHYSICAL THERAPY PHYSICAL THERAPY EVALUATION HIGH COMPLEX 45 MINS Carl Rendon MD [address] [place] [address] [address] Referral ID Status Reason Start Date Expiration Date Visits Requested Visits Authorized [id number] Authorized PCP Requested Referral Auto-Generate d Referral 12/16/2022 12/16/2023 99 99 Reason Comments PT Discharge Specialty Diagnoses / Procedures Referred By Contac t Referred To Contact [facility] Diagnoses Acute pain of right shoulder Right hip pain Procedures CONSULT TO PHYSICAL THERAPY PHYSICAL THERAPY EVALUATION HIGH COMPLEX 45 MINS Carl Rendon MD [address] [place] [address] [address] Referral ID Status Reason Start Date Expiration Date Visits Requested Visits Authorized [id number] Authorized PCP Requested Referral Auto-Generate d Referral 12/15/2021 12/15/2022 99 99 Reason Comments Medicare Wellness Exam Reason Comments Results Reason Comments PT Eval Reason Onset Date Comments Refill Request 07/02/2022 Reason Comments Head Congestion drainage, productive cough x 1 week Reason Onset Date Comments Refill Request 10/05/2022 Reason Onset Date Comments Refill Request 11/23/2022 Reason Comments Medicare Wellness Exam Reason Comments PT Eval Specialty Diagnoses / Procedures Referred By Contac t Referred To Contact [facility] Diagnoses Acute pain of both knees Procedures CONSULT TO PHYSICAL THERAPY PHYSICAL THERAPY EVALUATION HIGH COMPLEX 45 MINS Carl Rendon MD [address] [place] [address] [facility] [address] [place] [address] Reason Comments Physical Therapy Reason Comments Results Reason Comments Pain Reason Comments Paperwork needed as pt will be moving to [place] [facility] Reason Onset Date Comments Refill Request 05/26/2023 Reason Comments Rx Refills Reason Comments Medicare Wellness Exam Reason Comments Patient Question Reason Comments Outside H+P Reason Comments Patient Update Reason Comments Outside Cardio Reason Comments Hospital F/U A Fib Reason Comments Clinical Update Reason Onset Date Comments Refill Request 01/11/2024 Reason Comments Medication Question Ativan 0.5 mg as nee ded 3 times daily given at [facility] and also told to ask PCP about Buspar instead this was from the cardiology department at [facility] Reason Comments Hospital F/U Reason Comments Consult Cardiology Reason Comments Medication Problem Lorazepam .05 mg Medication Request Potassium 20 mEq Reason Onset Date Comments Refill Request 01/26/2024 Reason Comments Recheck Reason Comments Outside Cardiology Reason Comments Recheck Medication follow up Reason Comments Covid Positive Reason Onset Date Comments headache, runny nose, body aches and fatigue 01/2024 Reason Comments Covid Positive Tested positive Satu rday with home test Reason Onset Date Comments Refill Request 05/29/2024 Reason Onset Date Comments Refill Request 06/30/2024 Reason Onset Date Comments Refill Request 08/28/2024 Reason Onset Date Comments Refill Request 10/30/2024 Reason Onset Date Comments Refill Request 11/27/2024 Reason Onset Date Comments Refill Request 01/04/2025 Reason Comments Procedure Lesion removal Reason Comments Rash Rash on arm and leg x 1 day and scalp itches Reason Onset Date Comments Refill Request 01/31/2025 Reason Comments Suture Removal Reason Onset Date Comments Refill Request 02/19/2025 Reason Comments Blood Pressure Dizziness Short Of Breath Reason Comments Abstract Cardiology OV, [facility] Reason Comments Med Change Request Reason Onset Date Comments Refill Request 04/05/2025 Reason Comments ext document Labs Care Teams (unrecognized sec tion and content) Project Manager Interior Design Relationship Specialty Start Date End Date Carl Rendon MD [address] [facility] [place] [address] PCP - General Family Practice 04/28/21 Project Manager Interior Design Relationship Specialty Start Date End Date Carl Rendon MD [facility] [place] [address] PCP - General Family Practice 04/28/21 Project Manager Interior Design Relationship Specialty Start Date End Date Carl Rendon MD [address] [place] [address] [place] [address] PCP - General Family Practice 04/28/21 Project Manager Interior Design Relationship Specialty Start Date End Date Carl Rendon MD [address] [place] [address] [place] [address] PCP - General Family Practice 04/28/21 Project Manager Interior Design Relationship Specialty Start Date End Date Carl Rendon MD [address] [place] [address] [place] [address] PCP - General Family Medicine 04/28/21 Project Manager Interior Design Relationship Specialty Start Date End Date Carl Rendon MD [facility]0 [facility] [place] [address] PCP - General Family Medicine 04/28/21 Project Manager Interior Design Relationship Specialty Start Date End Date Carl Rendon MD [address] [place] [address] [place] [address] PCP - General Family Medicine 04/28/21 Project Manager Interior Design Relationship Specialty Start Date End Date Carl Rendon MD [address] [place] [address] [place] [address] PCP - General Family Medicine 04/28/21 Project Manager Interior Design Relationship Specialty Start Date End Date Carl Rendon MD [address] [facility] [place] [address] PCP - General Family Medicine 04/28/21 Project Manager Interior Design Relationship Specialty Start Date End Date Carl Rendon MD [address] [facility] [place] [address] PCP - General Family Medicine 04/28/21 Project Manager Interior Design Relationship Specialty Start Date End Date Carl Rendon MD [address] [facility] [place] [address] PCP - General Family Medicine 04/28/21 Project Manager Interior Design Relationship Specialty Start Date End Date Carl Rendon MD [address] [facility] [place] [address] PCP - General Family Medicine 04/28/21 Project Manager Interior Design Relationship Specialty Start Date End Date Carl Rendon MD [address] [facility] [place] [address] PCP - General Family Medicine 04/28/21 Project Manager Interior Design Relationship Specialty Start Date End Date Carl Rendon MD [address] [facility] [place] [address] PCP - General Family Medicine 04/28/21 Project Manager Interior Design Relationship Specialty Start Date End Date Carl Rendon MD [address] [facility] [place] [address] PCP - General Family Medicine 04/28/21 Project Manager Interior Design Relationship Specialty Start Date End Date Carl Rendon MD [address] [facility] [place] [address] PCP - General Family Medicine 04/28/21 Project Manager Interior Design Relationship Specialty Start Date End Date Carl Rendon MD [address] [place] [address] PCP - General Family Medicine 04/28/21 Project Manager Interior Design Relationship Specialty Start Date End Date Carl Rendon MD [address] [place] [address] PCP - General Family Medicine 04/28/21 Project Manager Interior Design Relationship Specialty Start Date End Date Carl Rendon MD [address] [place] [address] PCP - General Family Medicine 04/28/21 Project Manager Interior Design Relationship Specialty Start Date End Date Carl Rendon MD [address] [place] [address] PCP - General Family Medicine 04/28/21 Project Manager Interior Design Relationship Specialty Start Date End Date Carl Rendon MD [address] [place] [address] PCP - General Family Medicine 04/28/21 Eula Obrien, JESUS [address] [place] [address] Primary Care Longwall Foreman 12/31/23 Project Manager Interior Design Relationship Specialty Start Date End Date Carl Rendon MD [address] [place] [address] PCP - General Family Medicine 04/28/21 Eula Obrien, JESUS [address] [place] [address] Primary Care Longwall Foreman 12/31/23 Project Manager Interior Design Relationship Specialty Start Date End Date Carl Rendon MD [address] [place] [address] PCP - General Family Medicine 04/28/21 Eula Obrien, RN [address] [place] [address] Primary Care Longwall Foreman 12/31/23 Project Manager Interior Design Relationship Specialty Start Date End Date Carl Rendon MD [address] [place] [address] PCP - General Family Medicine 04/28/21 Eula Obrien, RN [address] [place] [address] Primary Care Longwall Foreman 12/31/23 Project Manager Interior Design Relationship Specialty Start Date End Date Carl Rendon MD [address] [place] [address] PCP - General Family Medicine 04/28/21 Eula Obrien, JESUS [address] [place] [address] Primary Care Longwall Foreman 12/31/23 Project Manager Interior Design Relationship Specialty Start Date End Date Carl Rendon MD [address] [place] [address] PCP - General Family Medicine 04/28/21 Project Manager Interior Design Relationship Specialty Start Date End Date Carl Rendon MD [address] [place] [address] PCP - General Family Medicine 04/28/21 Project Manager Interior Design Relationship Specialty Start Date End Date Carl Rendon MD [address] [place] [address] PCP - General Family Medicine 04/28/21 Project Manager Interior Design Relationship Specialty Start Date End Date Carl Rendon MD [address] [place] [address] PCP - General Family Medicine 04/28/21 Project Manager Interior Design Relationship Specialty Start Date End Date Carl Rendon MD [address] [place] [address] PCP - General Family Medicine 04/28/21 Project Manager Interior Design Relationship Specialty Start Date End Date Carl Rendon MD [address] [place] [address] PCP - General Family Medicine 04/28/21 Project Manager Interior Design Relationship Specialty Start Date End Date Carl Rendon MD [address] [place] [address] PCP - General Family Medicine 04/28/21 Project Manager Interior Design Relationship Specialty Start Date End Date Carl Rendon MD [address] [place] [address] PCP - General Family Medicine 04/28/21 Project Manager Interior Design Relationship Specialty Start Date End Date Carl Rendon MD [address] [place] [address] PCP - General Family Medicine 04/28/21 Project Manager Interior Design Relationship Specialty Start Date End Date Carl Rendon MD [address] [place] [address] PCP - General Family Medicine 04/28/21 Project Manager Interior Design Relationship Specialty Start Date End Date Carl Rendon MD [address] [place] [address] PCP - General Family Medicine 04/28/21 Project Manager Interior Design Relationship Specialty Start Date End Date Carl Rendon MD [address] [place] [address] PCP - General Family Medicine 04/28/21 Project Manager Interior Design Relationship Specialty Start Date End Date Carl Rendon MD [address] [place] [address] PCP - General Family Medicine 04/28/21 Project Manager Interior Design Relationship Specialty Start Date End Date Carl Rendon MD [address] [place] [address] PCP - General Family Medicine 04/28/21 Project Manager Interior Design Relationship Specialty Start Date End Date Carl Rendon MD [address] [place] [address] PCP - General Family Medicine 04/28/21 Noreen Camacho, CARINA.DIRECTOR ASSET [address] [place] [address] Referral Management Liaison Family Medicine 07/01/24 Dionna Uriarte PA-C [address] [place] [address] Referral Management Liaison Family Medicine 07/01/24 Project Manager Interior Design Relationship Specialty Start Date End Date Carl Rendon MD [address] [place] [address] PCP - General Family Medicine 04/28/21 Noreen Camacho, SINGLE POINTED OPERATOR.DIRECTOR ASSET [address] [place] [address] Referral Management Liaison Family Medicine 07/01/24 Dionna Uriarte PA-C [address] [place] [address] Referral Management Liaison Family Medicine 07/01/24 Project Manager Interior Design Relationship Specialty Start Date End Date Carl Rendon MD [address] [place] [address] PCP - General Family Medicine 04/28/21 Noreen Camacho, CARINA.DIRECTOR ASSET [address] [place] [address] Referral Management Liaison Family Medicine 07/01/24 Dionna Uriarte PA-C [address] [place] [address] Referral Management Liaison Family Medicine 07/01/24 Project Manager Interior Design Relationship Specialty Start Date End Date Carl Rendon MD [address] [place] [address] PCP - General Family Medicine 10/30/24 Noreen Camacho, SINGLE POINTED OPERATOR.DIRECTOR ASSET [address] [place] [address] Referral Management Liaison Family Medicine 07/01/24 Dionna Uriarte PA-C [address] [place] [address] Referral Management Liaison Family Medicine 07/01/24 Project Manager Interior Design Relationship Specialty Start Date End Date Carl Rendon MD [address] [place] [address] PCP - General Family Medicine 10/30/24 Noreen Camacho, SINGLE POINTED OPERATOR.DIRECTOR ASSET [address] [place] [address] Referral Management Liaison Family Medicine 07/01/24 Dionna Uriarte PA-C [address] [place] [address] Referral Management Liaison Family Medicine 07/01/24 Project Manager Interior Design Relationship Specialty Start Date End Date Carl Rendon MD [address] [place] [address] PCP - General Family Medicine 10/30/24 Noreen Camacho APRN.DIRECTOR ASSET [facility]0 [place] [address] Referral Management Liaison Family Medicine 12/25/24 Dionna Uriarte PA-C [facility]0 [place] [address] [facility] 12/25/24 Project Manager Interior Design Relationship Specialty Start Date End Date Carl Rendon MD [address] [place] [address] PCP - General Family Medicine 10/30/24 Noreen Camacho APRN.DIRECTOR ASSET [address] [place] [address] Referral Management Liaison Family Medicine 12/25/24 Dionna Uriarte PA-C [address] [place] [address] Referral Management Liaison Family Medicine 12/25/24 Project Manager Interior Design Relationship Specialty Start Date End Date Carl Rendon MD [address] [place] [address] PCP - General Family Medicine 10/30/24 Noreen Camacho APRN.DIRECTOR ASSET [facility]0 [place] [address] Referral Management Liaison Family Medicine 12/25/24 Dionna Uriarte PA-C [address] [place] [address] Referral Management Liaison Family Medicine 12/25/24 Project Manager Interior Design Relationship Specialty Start Date End Date Carl Rendon MD [address] [place] [address] PCP - General Family Medicine 10/30/24 Noreen Camacho APRN.DIRECTOR ASSET [address] [place] [address] Referral Management Liaison Family Medicine 12/25/24 Dionan Uriarte PA-C [address] [place] [address] Referral Management Liaison Family Medicine 12/25/24 Project Manager Interior Design Relationship Specialty Start Date End Date Carl Rendon MD [address] [place] [address] PCP - General Family Medicine 10/30/24 Noreen Camacho, CARINA.DIRECTOR ASSET [address] [place] [address] Referral Management Liaison Family Medicine 12/25/24 Dionna Uriarte PA-C [address] [place] [address] Referral Management Liaison Family Medicine 12/25/24 Project Manager Interior Design Relationship Specialty Start Date End Date Carl Rendon MD [address] [place] [address] PCP - General Family Medicine 10/30/24 Noreen Camacho, CARINA.DIRECTOR ASSET [facility]0 [place] [address] Referral Management Liaison Family Medicine 12/25/24 Dionna Uriarte PA-C [address] [place] [address] Referral Management Liaison Family Medicine 12/25/24 Project Manager Interior Design Relationship Specialty Start Date End Date Carl Rendon MD [address] [place] [address] PCP - General Family Medicine 10/30/24 Noreen Camacho APRN.DIRECTOR ASSET [address] [place] [address] Referral Management Liaison Family Medicine 12/25/24 Dionna Uriarte PA-C [facility] [place] [address] Referral Management Liaison Family Medicine 12/25/24 Project Manager Interior Design Relationship Specialty Start Date End Date Carl Rendon MD [address] [place] [address] PCP - General Family Medicine 10/30/24 Noreen Camacho APRN.DIRECTOR ASSET [address] [place] [address] Referral Management Liaison Family Medicine 12/25/24 Dionna Uriarte PA-C [address] [place] [address] Referral Management Liaison Family Medicine 12/25/24 Team Status: Active Member Role/Relationship Status Dates Dr. Carl Rendon MD Primary Care Provider Active Team Status: Inactive Member Role/Relationship Status Dates Dr. Carl Rendon MD Primary Care Provider Active Start: February 20, 2025 End: February 20, 2025 Dr. Carl Rendon MD Referring Provider Active Start: February 20, 2025 End: February 20, 2025 Dr. Yuri Ta MD Attending Provider Active S tart: February 20, 2025 End: February 20, 2025 Project Manager Interior Design Relationship Specialty Start Date End Date Carl Rendon MD [address] [place] [address] PCP - General Family Medicine 10/30/24 Noreen Camacho, SINGLE POINTED OPERATOR.DIRECTOR ASSET [facility] [place] [address] Referral Management Liaison Family Medicine 12/25/24 Dionna Uriarte PA-C [facility] [place] [address] Referral Management Liaison Family Medicine 12/25/24 Project Manager Interior Design Relationship Specialty Start Date End Date Carl Rendon MD [address] [place] [address] PCP - General Family Medicine 10/30/24 Noreen Camacho, SINGLE POINTED OPERATOR.DIRECTOR ASSET [address] [place] [address] Referral Management Liaison Family Medicine 12/25/24 Dionna Uriarte PA-C [facility] [place] [address] Referral Management Liaison Family Medicine 12/25/24 Team Status: Active Member Role/Relationship Status Dates Dr. Carl Rendon MD Primary Care Provider Active Start: February 20, 2025 Dr. Yuri Ta MD Attending Provider Active S tart: February 20, 2025 Dr. Yuri Ta MD Referring Provider Active S tart: February 20, 2025 Team Status: Inactive Member Role/Relationship Status Dates Dr. Carl Rendon MD Primary Care Provider Active Start: March 16, 2025 End: March 16, 2025 Dr. Carl Rendon MD Referring Provider Active Start: March 16, 2025 End: March 16, 2025 NKECHI Duffy Attending Provider Active St art: March 16, 2025 End: March 16, 2025 Team Status: Inactive Member Role/Relationship Status Dates Dr. Carl Rendon MD Primary Care Provider Active Start: February 20, 2025 End: February 20, 2025 Dr. Yuri Ta MD Attending Provider Active S tart: February 20, 2025 End: February 20, 2025 Dr. Yuri Ta MD Referring Provider Active S tart: February 20, 2025 End: February 20, 2025 Team Status: Inactive Member Role/Relationship Status Dates Dr. Carl Rendon MD Primary Care Provider Active Start: April 10, 2025 End: April 10, 2025 Dr. Carl Rendon MD Referring Provider Active Start: April 10, 2025 End: April 10, 2025 NKECHI Duffy Attending Provider Active St art: April 10, 2025 End: April 10, 2025 Team Status: Active Member Role/Relationship Status Dates Dr. Carl Rendon MD Primary care physician Active Team Status: Inactive Member Role/Relationship Status Dates Dr. Carl Rendon MD Primary care physician Active Start: February 20, 2025 End: February 20, 2025 Dr. Carl Rendon MD Referring Provider Active Start: February 20, 2025 End: February 20, 2025 Dr. Yuri Ta MD Attending physician Active Start: February 20, 2025 End: February 20, 2025 Team Status: Inactive Member Role/Relationship Status Dates Dr. Carl Rendon MD Primary care physician Active Start: February 20, 2025 End: February 20, 2025 Dr. Yuri Ta MD Attending physician Active Start: February 20, 2025 End: February 20, 2025 Dr. Yuri Ta MD Referring Provider Active S tart: February 20, 2025 End: February 20, 2025 Team Status: Inactive Member Role/Relationship Status Dates Dr. Carl Rendon MD Primary care physician Active Start: March 16, 2025 End: March 16, 2025 Dr. Carl Rendon MD Referring Provider Active Start: March 16, 2025 End: March 16, 2025 NKECHI Duffy Attending physician Active S tart: March 16, 2025 End: March 16, 2025 Team Status: Active Member Role/Relationship Status Dates Dr. Carl Rendon MD Primary care physician Active Start: March 21, 2025 NKECHI Duffy Attending physician Active S tart: March 21, 2025 NKECHI Duffy Referring Provider Active St art: March 21, 2025 Team Status: Inactive Member Role/Relationship Status Dates Dr. Carl Rendon MD Primary care physician Active Start: April 10, 2025 End: April 10, 2025 Dr. Carl Rendon MD Referring Provider Active Start: April 10, 2025 End: April 10, 2025 NKECHI Duffy Attending physician Active S tart: April 10, 2025 End: April 10, 2025 Team Status: Inactive Member Role/Relationship Status Dates Dr. Carl Rendon MD Primary care physician Active Start: April 10, 2025 End: April 10, 2025 NKECHI Duffy Attending physician Active S tart: April 10, 2025 End: April 10, 2025 NKECHI Duffy Referring Provider Active St art: April 10, 2025 End: April 10, 2025 Team Status: Active Member Role/Relationship Status Dates Dr. Carl Rendon MD Primary care physician Active Start: April 20, 2025 Katrin Arevalo Attending physician Active Start: S [email or web address] 2024 Team Status: Inactive Member Role/Relationship Status Dates Dr. Carl Rendon MD Primary care physician Active Start: April 24, 2025 End: April 24, 2025 Dr. Carl Rendon MD Referring Provider Active Start: April 24, 2025 End: April 24, 2025 NKECHI Duffy Attending physician Active S tart: April 24, 2025 End: April 24, 2025 Team Status: Active Member Role/Relationship Status Dates Dr. Carl Rendon MD Primary care physician Active Start: April 24, 2025 NKECHI Duffy Attending physician Active S tart: April 24, 2025 NKECHI Duffy Referring Provider Active St art: April 24, 2025 Team Status: Active Member Role/Relationship Status Dates Dr. Carl Rendon MD Primary care physician Active Start: March 21, 2025 Dr. Yuri Ta MD Attending physician Active Start: March 21, 2025 NKECHI Duffy Referring Provider Active St art: March 21, 2025 Team Status: Inactive Member Role/Relationship Status Dates Dr. Carl Rendon MD Primary care physician Active Start: April 10, 2025 End: April 10, 2025 Dr. Carl Rendon MD Referring Provider Active Start: April 10, 2025 End: April 10, 2025 NKECHI Duffy Attending physician Active S tart: April 10, 2025 End: April 10, 2025 Team Status: Inactive Member Role/Relationship Status Dates Dr. Carl Rendon MD Primary care physician Active Start: April 10, 2025 End: April 10, 2025 NKECHI Duffy Attending physician Active S tart: April 10, 2025 End: April 10, 2025 NKECHI Duffy Referring Provider Active St art: April 10, 2025 End: April 10, 2025 Team Status: Active Member Role/Relationship Status Dates Dr. Carl Rendon MD Primary care physician Active Start: April 20, 2025 Katrin Arevalo Attending physician Active Start: S [email or web address] Team Status: Inactive Member Role/Relationship Status Dates Dr. Carl Rendon MD Primary care physician Active Start: April 24, 2025 End: April 24, 2025 Dr. Carl Rendon MD Referring Provider Active Start: April 24, 2025 End: April 24, 2025 NKECHI Duffy Attending physician Active S tart: April 24, 2025 End: April 24, 2025 Team Status: Active Member Role/Relationship Status Dates Dr. Carl Rendon MD Primary care physician Active Start: April 24, 2025 NKECHI Duffy Attending physician Active S tart: April 24, 2025 NKECHI Duffy Referring Provider Active St art: April 24, 2025 Team Status: Inactive Member Role/Relationship Status Dates Dr. Carl Rendon MD Primary care physician Active Start: May 02, 2025 End: May 02, 2025 Dr. Dougie Rivero MD Emergency Department Physician Active Start: May 02, 2025 End: May 02, 2025 Team Status: Inactive Member Role/Relationship Status Dates Dr. Carl Rendon MD Primary care physician Active Start: April 24, 2025 End: April 24, 2025 NKECHI Duffy Attending physician Active S tart: April 24, 2025 End: April 24, 2025 NKECHI Duffy Referring Provider Active St art: April 24, 2025 End: April 24, 2025 Team Status: Inactive Member Role/Relationship Status Dates Dr. Carl Rendon MD Primary care physician Active Start: May 02, 2025 End: May 02, 2025 Dr. Dougie Rivero MD Attending physician Active St art: May 02, 2025 End: May 02, 2025 Dr. Dougie Rivero MD Emergency Department Physician Active Start: May 02, 2025 End: May 02, 2025 Team Status: Inactive Member Role/Relationship Status Dates Dr. Carl Rendon MD Primary care physician Active Start: May 09, 2025 End: May 09, 2025 Dr. Isidoro Medrano DO Attending physician Active Start: May 09, 2025 End: May 09, 2025 Dr. Isidroo Medrano DO Emergency Department Physician Active Start: May 09, 2025 End: May 09, 2025 Team Status: Inactive Member Role/Relationship Status Dates Dr. Carl Rendon MD Primary care physician Active Start: May 10, 2025 End: May 10, 2025 Dr. Carl Rendon MD Referring Provider Active Start: May 10, 2025 End: May 10, 2025 Elida Gann AIX ADMINISTRATOR, AIX ADMINISTRATOR-C Attending physician Active Start: May 10, 2025 End: May 10, 2025 Team Status: Active Member Role/Relationship Status Dates Dr. Carl Rendon MD Primary care physician Active Start: May 18, 2025 NKECHI Duffy Attending physician Active S tart: May 18, 2025 NKECHI Duffy Referring Provider Active St art: May 18, 2025 Team Status: Active Member Role/Relationship Status Dates Dr. Carl Rendon MD Primary care physician Active Start: May 18, 2025 Dr. Yuri Ta MD Attending physician Active Start: May 18, 2025 Team Status: Active Member Role/Relationship Status Dates Dr. Carl Rendon MD Primary care physician Active Start: May 21, 2025 John Pruett AIX ADMINISTRATOR, AIX ADMINISTRATOR-C Attending physician Active Start: May 21, 2025 John Pruett AIX ADMINISTRATOR, AIX ADMINISTRATOR-C Referring Provider Active S tart: May 21, 2025 Team Status: Inactive Member Role/Relationship Status Dates Dr. Carl Rendon MD Primary care physician Active Start: May 21, 2025 End: May 21, 2025 Dr. Carl Rendon MD Referring Provider Active Start: May 21, 2025 End: May 21, 2025 NKECHI Duffy Attending physician Active S tart: May 21, 2025 End: May 21, 2025 Goals (unrecognized section and content) Goals may be documented in a n alternate sectionGoals may be documented in an alternate sectionGoals may be documented in an alternate sectionGoals may be documented in an alternate sectionGoals may be documented in an alternate sectionGoals may be documented in an alternate sectionGoals may be documented in an alternate sectionGoals may be documented in an alternate sectionGoals may be documented in an alternate sectionGoals may be documented in an alternate section INFORMATION SOURCE (unrecogn ized section and content) DATE CREATED AUTHOR 05/30/2025 [facility] DATE CREATED AUTHOR AUTHOR'S ORGANIZ ATION 06/06/2025 [facility] FOR RECORDS PERTAINING TO PATIENTS WHO ARE OR HAVE BEEN ENROLLED IN A CHEMICAL DEPENDENCY/SUBSTANCEABUSE PROGRAM, SOME INFORMATION MAY BE OMITTED. This clinical summary was aggregated from multiple sources. Caution should be exercised in using it in the provision of clinical care. This summary normalizes information from multiple sources, and as a consequence, information in this document may materially change the coding, format and clinical context of patient data. In addition, data may be omitted in some cases. CLINICAL DECISIONS SHOULD BE BASED ON THE PRIMARY CLINICAL RECORDS. [employer] provides no warranty or guarantee of the accuracy or completeness of information in this document.
--- NOTE | 2025-06-11 14:48 | STRESSREP ---
Stress Test Report Pharmacologic myocardial perfusion stress test. 89-year-old lady with a history of atrial fibrillation. Resting EKG demonstrates atrial fibrillation with a rate of 88 bpm. Resting blood pressure is 124/78 mmHg. 0.4 mg of regadenoson was infused per usual protocol followed by rapid intravenous saline flush injection. Continuous EKG monitoring was performed. The maximum heart rate was 108 bpm which was 81% of max impacted heart rate the maximum workload was 1 metabolic equivalent. At rest there were no ST or T wave changes noted to suggest ischemia and at peak infusion nonspecific ST changes were noted which did not meet the criteria for ischemia. No clinical angina is noted. The final blood pressure was 116/70 mmHg. Myocardial perfusion protocol. 11.8 mCi of technetium 99m sestamibi was injected at rest. 0.4 mg of regadenoson was infused per usual protocol. At peak infusion 33.1 mCi of technetium 99m sestamibi was injected stress images were obtained stress and rest images were reconstructed and compared in the short axis vertical long and horizontal long axis. Gated images were also obtained. Perfusion SPECT analysis: Review of the stress images demonstrate normal uptake of tracer noted in all areas of the myocardium. There is a small to medium defect or perfusion reduction noted in the distal anteroseptal wall the resting images similar demonstrated normal uptake of tracer noted in all areas of the myocardium. The distal anteroseptal wall demonstrates a reduction of perfusion. No areas of reversibility are noted to suggest ischemia and no previous infarct is noted. Gated SPECT analysis: The gated ejection fraction is 38%. Conclusion: Normal pharmacologic myocardial perfusion stress test. Moderately reduced ejection fraction.
== END | disposition home or self-care (01) ==
LOC: CVS 06:48
PROVIDERS: PCP Family Medicine; Referring Provider Student in an Organized Health Care Education/Training Program; Visit Provider Student in an Organized Health Care Education/Training Program
DX: R06.02 Shortness of breath (principal); I50.20 Unspecified systolic (congestive) heart failure
CPT/HCPCS: 78452; 93017; A9500; A4216; J2785

== ENCOUNTER → 2025-06-15 | Outpatient (CLI) | payer MEDICARE, OTHER, SELFPAY ==
[2025-06-15 11:05] LABS: Anion Gap 14 (5-15); BUN 26 mg/dL (4-19); BUN/Creat Ratio 19.6 RATIO (10-20); Calcium,Total 9.2 mg/dL (7.6-11.0); Carbon Dioxide 23.4 mmol/L (21.0-32.0); Chloride 103 mmol/L (98-108); Glucose 150 mg/dL (70-99); Potassium 3.7 mmol/L (3.3-5.1)
== END | disposition home or self-care (01) ==
LOC: LAB 09:29
PROVIDERS: PCP Family Medicine; Referring Provider Student in an Organized Health Care Education/Training Program; Visit Provider Student in an Organized Health Care Education/Training Program
DX: I50.20 Unspecified systolic (congestive) heart failure (principal)
CPT/HCPCS: 36415; 80048

== ENCOUNTER 2025-06-19 10:29 | Day surgery (SDC) | payer MEDICARE, OTHER, SELFPAY ==
[2025-06-18 09:49] VITALS: BMI 28.9
--- NOTE | 2025-06-19 13:20 | PCM.OP.PRO2 ---
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 Informed consent was obtained. Anterior-posterior was pads were applied. The patient was seen by Dr. Romero electrical cardioversion. 6 mg of intravenous etomidate was then administered and 200 J of synchronized biphasic DC cardioversion energy were applied with prompt reversal to sinus rhythm. Patient was noted after approximately 2 to 3 minutes of reverted back into atrial fibrillation and once again 200 J of synchronized DC biphasic energy were applied with prompt reversal to sinus rhythm. Patient appeared to tolerate the procedure well. Thank you for allowing me to participate in the care of your patient. Please don't hesitate to call if any issues arise. Procedure findings: Successful DC cardioversion from atrial fibrillation to sinus rhythm.
--- NOTE | 2025-06-19 13:21 | PRO.PCM_ITS ---
Procedures Pulmonary Pulmonary Procedures /Diagnostic Testin Con Sedation Bedside Procedural Bedside Procedure Information Date of Procedure: 06/19/25 Description of procedure: CONSCIOUS SEDATION REPORT DATE OF SERVICE: June 19, 2025 BRIEF HISTORY OF PRESENT ILLNESS: The patient is an 89-year-old female who presented to [facility] to undergo an elective outpatient cardioversion due to underlying atrial f ibrillation. The patient denied any prior anesthetic complications. 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 In addition, the patient was recently diagnosed with obstructive sleep apnea and has been on BiPAP now for approximately 2 weeks. The patient is systemically anticoagulated on Eliquis. Her last surface echocardiogram demonstrated an ejection fraction of 40%. PHYSICAL EXAMINATION: VITAL SIGNS: Reviewed and were acceptable. GENERAL: The patient is a female, in no apparent distress, speaking in full sentences. HEENT: Normocephalic, atraumatic. Mucous membranes are moist and pink. Good mouth opening noted. Trachea is midline. Good neck mobility. CHEST: S1, S2 irregularly irregular. No murmurs, rubs or gallops were noted. LUNGS: Clear to auscultation bilaterally without appreciable wheezes, rales or rhonchi. ABDOMEN: Soft, nontender, nondistended. Positive bowel sounds. EXTREMITIES: There is no clubbing, cyanosis or edema. ASA Class: II DESCRIPTION OF PROCEDURE: After confirmation of informed consent, the patient's anesthesia plan was reviewed in detail. Etomidate was chosen. Risks and benefits were reviewed and the patient agreed to proceed. At 1303, the patient was given 6 mg of etomidate. The patient achieved an appropriate level of sedation and was given a 200 joule synchronized cardioversion by Dr. Ta at the bedside. This was successful in achieving normal sinus rhythm. The patient was monitored until 1319, at which time she reached her baseline mental status and function. The patient tolerated the procedure well. COMPLICATIONS: None ESTIMATED BLOOD LOSS: None RECOMMENDATIONS: Okay to recover in usual fashion.
== END 2025-06-19 14:15 | disposition home or self-care (01) ==
PROVIDERS: PCP Family Medicine; Referring Provider Internal Medicine Cardiovascular Disease; Visit Provider Internal Medicine Cardiovascular Disease
DX: I48.0 Paroxysmal atrial fibrillation (principal); I11.0 Hypertensive heart disease with heart failure; I50.22 Chronic systolic (congestive) heart failure; Z79.899 Other long term (current) drug therapy; Z87.891 Personal history of nicotine dependence; Z79.01 Long term (current) use of anticoagulants
CPT/HCPCS: 92960; 93005

== ENCOUNTER → 2025-06-26 | Outpatient (CLI) | payer MEDICARE, OTHER, SELFPAY ==
--- NOTE | 2025-06-26 11:50 | RAD_ITS ---
PROCEDURE: CHEST PA AND LATERAL 06/26/2025 REASON FOR EXAM: SHORTNESS OF BREATH TECHNIQUE: Procedure Code: RADCXR Modality: DX Procedure: CHEST PA AND LATERAL COMPARISON: May 28, 2025 FINDINGS: Heart size is upper normal. Central vascularity appears normal. There is no focal infiltrate or consolidation. There is no pneumothorax or effusion. There is no acute bony abnormality. Aortic calcifications are noted. RAD/Chest PA and Lateral IMPRESSION: No acute process is identified in the chest. Reading Location: [facility]
[2025-06-26 12:24] LABS: Hematocrit 41.1 % (37-47); Hemoglobin 13.4 g/dL (12.0-15.0); Immature Granulocytes Count 0.290 X10^3/uL (0.0-0.0); Mean Corp Hgb Conc 32.6 g/dL (32-36); Mean Corpuscular Volume 91.3 fL (81-99); Mean Platelet Vol. 9.6 fl (6.2-12.0); NRBC Flagged by Analyzer 0 % (0-5); Platelet Count 316 K/mm3 (150-450); RBC Distribution Width CV 14.6 % (11.6-14.6); RBC Distribution Width SD 48.6 fl (35.1-43.9); Red Blood Count 4.50 M/mm3 (4.2-5.4); White Blood Count 12.6 K/mm3 (4.4-11.0)
[2025-06-26 13:07] LABS: Pro- Brain NATRIURETIC PEPTIDE 22466 pg/mL (<=1800)
[2025-06-26 13:10] LABS: Anion Gap 16 (5-15); BUN 32 mg/dL (4-19); BUN/Creat Ratio 22.4 RATIO (10-20); Calcium,Total 9.4 mg/dL (7.6-11.0); Carbon Dioxide 23.9 mmol/L (21.0-32.0); Chloride 103 mmol/L (98-108); Glucose 109 mg/dL (70-99); Potassium 4.0 mmol/L (3.3-5.1)
== END | disposition home or self-care (01) ==
LOC: RAD 11:37
PROVIDERS: PCP Family Medicine; Referring Provider Student in an Organized Health Care Education/Training Program; Visit Provider Student in an Organized Health Care Education/Training Program
DX: I48.0 Paroxysmal atrial fibrillation (principal); I11.0 Hypertensive heart disease with heart failure; I50.20 Unspecified systolic (congestive) heart failure; R06.02 Shortness of breath
CPT/HCPCS: 36415; 71046; 80048; 83880; 85025

== ENCOUNTER → 2025-07-12 | Outpatient (CLI) | payer MEDICARE, OTHER, SELFPAY ==
[2025-07-12 12:48] LABS: Anion Gap 15 (5-15); BUN 22 mg/dL (4-19); BUN/Creat Ratio 15.7 RATIO (10-20); Calcium,Total 10.3 mg/dL (7.6-11.0); Carbon Dioxide 23.7 mmol/L (21.0-32.0); Chloride 102 mmol/L (98-108); Glucose 115 mg/dL (70-99); Potassium 4.4 mmol/L (3.3-5.1)
== END | disposition home or self-care (01) ==
LOC: LAB 11:55
PROVIDERS: PCP Family Medicine; Referring Provider Student in an Organized Health Care Education/Training Program; Visit Provider Student in an Organized Health Care Education/Training Program
DX: I50.20 Unspecified systolic (congestive) heart failure (principal)
CPT/HCPCS: 36415; 80048